=== PATIENT | male | born 1960 | race Two or more races ===

== ENCOUNTER 2024-01-24 16:27 | Inpatient (IN) | payer MEDICAID, SELFPAY ==
[2024-01-24] VITALS (10 sets, daily range): BP systolic 163–179; BP diastolic 85–107; PULSE 94–107; RESP 19–28; TEMP 36.6–36.8; O2SAT 86–100
--- NOTE | 2024-01-24 16:30 | EKG_ITS ---
[facility] Test Date: 2024-01-24 Pat Name: VALERIE BRUNSON Department: Room: - Gender: Male Area [employer]: : [id number] Requested By: ED Temporary Provider Order Number: [id number] Reading MD: ED Temporary Provider Measurements Intervals [place] Rate: 95 P: 11 NC: 117 QRS: 0 QRSD: 86 T: 46 QT: 352 QTc: 444 Interpretive Statements SINUS RHYTHM WITH SHORT NC INTERVAL Compared to ECG 06/29/2022 07:19:48 Short NC interval now present Sinus arrhythmia no longer present Left anterior fascicular block no longer present /[id number]/[id number].pdf
--- NOTE | 2024-01-24 17:02 | XR_ITS ---
Examination: AP chest single view Technique one AP portable semiupright chest single view Exam date and time: January 24, 2024 1847 hrs. Comparison October 04, 2023 Indications: Coughing shortness of breath beginning 3 days ago. Findings: Mild prominence left ventricle Prominent vascular congestion Bilateral perihilar lung opacity, edema and probably pneumonia Mild to moderate bilateral pleural effusions Impression: Moderate heart failure, consider superimposed bilateral pneumonia
--- NOTE | 2024-01-24 17:02 | PD.EDRME ---
Rapid Medical Screening Exam E Arrival date/time: 01/24/24 16:27 63-year-old male with past medical history of 2 diabetes, HLD, HTN presents emergency department complaining of chest pain and shortness of breath that is been ongoing for several days. Chief Complaint: Chest Pain Vital signs: Vital Signs Temperature 97.9 F 01/24/24 16:48 Pulse Rate 98 01/24/24 16:48 Respiratory Rate 24 H 01/24/24 16:48 Blood Pressure 175/85 H 01/24/24 16:48 Pulse Oximetry (%) 86 L 01/24/24 16:48 Oxygen Delivery Method Room Air 01/24/24 16:48 Vital signs reviewed by provider: Yes
--- NOTE | 2024-01-24 17:07 | XR_ITS ---
Examination: Foot, right, 3 views Technique: AP, oblique, lateral views foot, 3 views Date and time of exam: January 24, 2024 1848 hrs. Indications: Redness swelling and pain involving the foot this week. 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
[2024-01-24 17:25] LABS: Lactate (Lactic Acid) 1.5 mMol/L (0.4-2.0)
[2024-01-24] MEDS: ALBUTEROL RT 2.5 MG/0.5 ML NEBU 5 MG INH (17:28)
[2024-01-24] MEDS: IPRATROPIUM RT 0.5 MG/ 2.5 ML NEBU 1 MG INH (17:29)
[2024-01-24 17:37] LABS: Basophils # (Auto) 0.1 Thou/mm3 (0.0-0.2); Basophils % (Auto) 0 % (0-2.5); Eosinophils # (Auto) 0.4 Thou/mm3 (0.0-0.5); Eosinophils % (Auto) 2 % (0-10); Hematocrit 28.6 % (41.0-53.0); Hemoglobin 8.9 g/dL (13.5-16.0); Immature Granulocytes % (Auto) 1 % (0-0); Immature Granulocytes Auto 0.16 Thou/mm3 (0.00-0.00); Lymphocytes # (Auto) 1.8 Thou/mm3 (1.0-4.8); Lymphocytes % (Auto) 12 % (10-50); Mean Corpuscular HGB Conc 31.1 g/dl (31.0-37.0); Mean Corpuscular Hemoglobin 25.5 pg (25.0-35.0); Mean Corpuscular Volume 82 fL (80-100); Monocytes % (Auto) 7 % (0-12); Neutrophils % (Auto) 78 % (37-80); Nucleated Red Blood Cell % 0 /100 WBC (0); Platelet Count 452 Thou/mm3 (140-440); RDW Standard Deviation 42.8 fL (35.1-43.9); Red Blood Count 3.49 Miln/mm3 (4.50-5.90); White Blood Count 15.4 Thou/mm3 (3.8-10.6)
[2024-01-24 17:43] LABS: Partial Thromboplastin Time 29.3 Seconds (22.0-36.0); Prothrombin Time 11.3 Seconds (9.0-12.2)
[2024-01-24 17:49] LABS: B-Type Natriuretic Peptide 671 pg/mL (0-100)
[2024-01-24 17:52] LABS: Alanine Aminotransferase 30 U/L (10-49); Alkaline Phosphatase 226 U/L (46-116); Anion Gap 7 (7-16); Aspartate Amino Transferase 19 U/L (0-34); BUN/Creatinine Ratio 20 Ratio (12-20); Bilirubin,Total 0.4 mg/dL (0.3-1.2); Blood Urea Nitrogen 56 mg/dL (9-23); Calcium 8.6 mg/dL (8.3-10.6); Calcium (Corrected) 8.6 mg/dL (8.5-10.1); Chloride 107 mMol/L (98-107); Creatinine (Component) 2.8 mg/dL (0.6-1.3); Glucose 242 mg/dL (74-106); Magnesium 2.3 mg/dL (1.6-2.6); Osmolality,Calculated 293 (275-295); Potassium 5.1 mMol/L (3.4-5.1); Procalcitonin 0.11 ng/ml (0.0-0.49); Sodium 135 mMol/L (136-145); Troponin I < 0.020 ng/mL (0.0-0.045); eGFR 25 See Note
[2024-01-24 18:18] LABS: Collection Type, Urine Clean Catch; WBC,Urine 0 /hpf (0-5)
[2024-01-24 18:23] LABS: Bilirubin,Urine Negative (Negative); Blood,Urine 1+ (Negative); Clarity,Urine Clear (Clear/Hazy); Color,Urine Yellow (Lt Yel-Yel); Culture Indicated,Urine Not Indicated; Glucose, Urine 3+ (Negative); Hyaline Casts,Urine < 1 /hpf (0-1); Ketones,Urine Negative (Negative); Leukocyte Esterase,Urine Negative (Negative); Nitrite,Urine Negative (Negative); Protein,Urine 3+ (Neg - Trace); RBC,Urine 15 /hpf (0-3); Specific Gravity,Urine 1.019 (1.001-1.035); Squamous Epithelial Cell,Urine 2 /hpf (0-5); Urobilinogen,Urine Negative mg/dL (0.0-1.0)
[2024-01-24 18:37] LABS: Amphetamine/Methamp Scrn,U Negative (Negative); Barbiturate Screen,Urine Negative (Negative); Benzodiazepines Screen,Urine Negative (Negative); Benzoylecgonine Screen, Ur Negative (Negative); Fentanyl Screen,Urine Negative (Negative); Opiate Screen,Urine Positive (Negative); THC Screen,Urine Negative (Negative)
[2024-01-24] MEDS: ALBUTEROL/IPRATROPIUM (Duoneb) RT SOL 3 ML NEBU INH (18:45)
--- NOTE | 2024-01-24 18:48 | EDNOTE_ITS ---
ED General RME/HPI General Chief complaint: Chest Pain Stated complaint: CHEST PAIN, SOB Time Seen by Provider: 01/24/24 18:32 Arrival date/time: 01/24/24 16:27 CC: Shortness of breath difficulty breathing HPi ongoing for the past 2 days, patient states he currently is freezing as well as having short of breath. On a simple mask patient is saturating at 98%. Patient points to center chest source of his chest pain. RME / HPI RME / HPI narrative: 01/24/24 16:27 63-year-old male with past medical history of 2 diabetes, HLD, HTN presents emergency department complaining of chest pain and shortness of breath that is been ongoing for several days. Related Data Home Medications ?Medication ?Instructions ?Recorded ?Confirmed clonidine HCl 0.1 mg tablet 0.1 mg PO BID 01/27/24 01/27/24 furosemide 20 mg tablet (Lasix) 40 mg PO TID 01/27/24 01/27/24 insulin glargine 100 unit/mL (3 15 unit subcut HS 01/27/24 01/27/24 mL) subcutaneous pen (Lantus Solostar U-100 Insulin) Previous Rx's ?Medication ?Instructions ?Recorded amlodipine 10 mg tablet 10 mg PO QDAY #30 tabs 10/09/23 hydrocodone 10 mg-acetaminophen 1 tab PO Q8H PRN pain #15 tabs 10/09/23 300 mg tablet Allergies Allergy/AdvReac Type Severity Reaction Status Date / Time No Known Allergies Allergy Verified 06/19/22 16:16 Review of Systems Review of Systems Narrative Review of Systems: GEN: No fever, no chills, no weight loss EYES: No discharge, no visual changes, no pain HEENT: No ear pain, no congestion, no sore throat PULM: + shortness of breath, no cough, no congestion CV: + chest pain, no dyspnea on exertion, no palpitations GI: No nausea, no vomiting, no diarrhea, no pain, no constipation : No frequency, no urgency, no dysuria MUSC/SKEL: No joint pain, no back pain SKIN: No rash PSYCH: No hallucinations, no depression HEME/LYMPH: No easy bleeding or bruising tendencies NEURO: No weakness, no headache Past Medical History Past Medical History NEUROLOGIC: Negative Seizures CARDIAC: Positive Edema, Cellulitis and Hypertension; Negative Cardiac Disorders or Congestive Heart Failure RESPIRATORY: Negative Chronic Obstructive Pulmonary Disease (COPD) or Asthma GENITOURINARY: Negative Renal Disease ENDOCRINE: Positive Diabetes Mellitus Type 2; Negative Diabetes Mellitus Type 1 HEMATOLOGIC: Negative Sickle Cell Disease OTHER HISTORY: Positive Hospitalization; Negative Falls, Blood Transfusions, Blood Transfusion Reaction or Anesthesia Reactions Social History SMOKING STATUS: Never smoker SUBSTANCE USE: does not use ED Exam Narrative Physical exam: [General: Moderate discomfort but not in any acute distress Head normocephalic HEENT: Within acceptable limits Neck is supple nontender Chest equal chest rise nontender to palpation Respiratory: Right-sided expiratory and inspiratory wheezing with occasional crackles left side diminished. CV: Rate rhythm is regular no murmurs rubs or clicks Abdomen is soft nontender no masses positive bowel sounds all 4 quadrants GI: Rectal: Moderate tone, vault is empty pasty santoyo stool guaiac negative no hemorrhoids no fissures. Back: No CVA tenderness no spinous process tenderness from cervical spine thoracic and lumbar spine Skin: Intact no petechiae rash induration ulceration or crepitus Extremities: Moving all extremity against resistance cap refill less than 2 seconds neurosensory intact right foot covered with a dressing. No surrounding erythema or edema. Neuro: Awake alert oriented x3 Glascow coma 15 no focal deficits] Course Quality Measures none Orders Category Date Time Status Bedside COVID-19 Antigen Test NOW Care 01/24/24 17:02 Active Bedside Influenza A&B Antigen Test NOW Care 01/24/24 17:02 Completed EKG (ED ONLY) *Do not use* NOW Care 01/24/24 16:30 Completed Saline [Insert IV] NOW Care 01/24/24 18:41 Active EKG (ED Only) Stat Exams 01/24/24 16:30 Draft XR chest 1V portable Stat Exams 01/24/24 17:02 Completed XR foot comp RT min 3V Stat Exams 01/24/24 17:07 Completed B-Type Natriuretic Peptide Stat Lab 01/24/24 17:15 Completed Blood Culture (Lab) Stat Lab 01/24/24 17:15 Results CBC Stat Lab 01/24/24 17:15 Completed Comprehensive Metabolic Panel Stat Lab 01/24/24 17:15 Completed Drug Screen,Urine Stat Lab 01/24/24 18:05 Completed Lactate (Lactic Acid) Stat Lab 01/24/24 17:15 Completed Magnesium Stat Lab 01/24/24 17:15 Completed Occult Blood, Stool (LAB) Stat Lab 01/24/24 19:21 Completed Partial Thromboplastin Time Stat Lab 01/24/24 17:15 Completed Procalcitonin Stat Lab 01/24/24 17:15 Completed Prothrombin Time with INR Stat Lab 01/24/24 17:15 Completed Troponin I Stat Lab 01/24/24 17:15 Completed Type and Screen Stat Lab 01/24/24 19:00 Completed Urinalysis, C/S if Indicated Stat Lab 01/24/24 18:05 Completed ALBUTEROL RT 0.5ml [Proventil Rt 0.5ml] Med 01/24/24 17:05 Discontinued 5 mg INH X1 ONE Albuterol/Ipratr Rt Silvina [Duoneb Rt Silvina] Med 01/24/24 18:38 Discontinued 3 ml INH X1 ONE Furosemide Inj [Lasix Inj] Med 01/24/24 19:19 Discontinued 40 mg IVP X1 ONE Ipratropium [place] Rt Silvina [Atrovent Rt Silvina] Med 01/24/24 17:05 Discontinued 1 mg INH X1 ONE Sodium Chloride Rt Silvina 0.9% [NS Rt Silvina 0.9%] Med 01/24/24 17:05 Discontinued 3 ml INH PRN PRN cefTRIAXone/D5w 1gm IV premix [Rocephin/D5w 1gm IV Med 01/24/24 18:57 Discontinued premix] 50 ml IV X1 Vital Signs Vital signs: Vital Signs Temperature 97.9 F 01/24/24 16:48 Pulse Rate 98 01/24/24 16:48 Respiratory Rate 24 H 01/24/24 16:48 Blood Pressure 175/85 H 01/24/24 16:48 Pulse Oximetry (%) 86 L 01/24/24 16:48 Oxygen Delivery Method Room Air 01/24/24 16:48 [facility] Patient data External records reviewed:: [facility] previous records Clinical information provided by:: patient Social determinants that could affect healthcare access:: none Patient has the following chronic illnesses:: Diabetes hypertension hyperlipidemia osteomyelitis of the right foot Admission to this hospital earlier in the year 2023 for osteomyelitis of the right foot. How is presenting disease/condition affected by chronic disease/condition?: u neffected by Evaluation data The following diagnostics were reviewed and interpreted by me:: lab results, radiology exam(s) and EKG tracing(s) Lab and/or radiology exams considered but not ordered:: CBC shows a leukocytosis of 15.4 and H&H of 8.9 and 28.6 respectively is a decrease of 1.5 g of heme hemoglobin in 1/2 months platelets elevated at 452. Coags within acceptable limits CMP shows sodium 135 potassium of 5.1 chloride of 107 CO2 of 21.0 BUN of 56 creatinine of 2.8 blood glucose level of 242. Troponin is negative BNP is negative EKG as interpreted by me at 1722 shows ventricular rate of 95 UT interval 117 QRS of 86 QTc of 405 this is a normal sinus rhythm. COVID and influenza are negative. Interpretation Summary: Leukocytosis with anemia. More importantly the patient has significant pneumonia with bilateral pleural effusion. Patient's case discussed with Dr. Cruz who agrees to accept the patient for admission for pneumonia hypoxemia shortness of breath or chest pain. Medications Medications considered but not ordered:: None Medication administrations:: Medication Administration History Acetaminophen (Acetaminophen 325 Mg Tablet) 650 mg PO Q6H PRN PRN Reason: Fever >101.5 Stop: 02/23/24 19:39 Amlodipine Besylate (Amlodipine Besylate 5 Mg Tablet) 10 mg PO QDAY ANAMARIA Stop: 02/24/24 08:59 Last Admin: 01/27/24 08:31 Dose: 10 mg Documented By: Admin: 01/26/24 07:50 Dose: 10 mg Documented By: Admin: 01/25/24 07:55 Dose: 10 mg Documented By: AM Atorvastatin Calcium (Atorvastatin Calcium 20 Mg Tablet) 40 mg PO HS ANAMARIA Stop: 02/26/24 20:59 Last Admin: 01/27/24 21:21 Dose: 40 mg Documented By: IQRA Bumetanide (Bumetanide Inj 0.25 Mg/Ml Vial 4 Ml) 2 mg IVP BID ANAMARIA Stop: 02/25/24 08:59 Last Admin: 01/27/24 21:21 Dose: 2 mg Documented By: Admin: 01/27/24 08:30 Dose: 2 mg Documented By: Admin: 01/26/24 21:06 Dose: 2 mg Documented By: Admin: 01/26/24 07:55 Dose: 2 mg Documented By: AT Carvedilol (Carvedilol 3.125 Mg Tablet) 6.25 mg PO BIDWM ANAMARIA Stop: 02/25/24 07:59 Last Admin: 01/27/24 16:55 Dose: 6.25 mg Documented By: Admin: 01/27/24 08:31 Dose: 6.25 mg Documented By: Admin: 01/26/24 16:30 Dose: 6.25 mg Documented By: Admin: 01/26/24 07:49 Dose: 6.25 mg Documented By: AT Dextrose (Dextrose 50%-Water Inj 50 Ml Syringe) 25 ml IV Q15MIN PRN PRN Reason: BG 50-70 responsive npo pt Stop: 02/23/24 19:41 Dextrose (Dextrose 50%-Water Inj 50 Ml Syringe) 50 ml IV Q15MIN PRN PRN Reason: BG <50 OR BG <70 & pt unresponsive Stop: 02/23/24 19:41 Glucagon (Glucagon Inj 1 Mg Vial) 1 mg IM Q15MIN PRN PRN Reason: BG <70, and no IV access Heparin Sodium (Porcine) (Heparin Sod Inj 5000 Unit/Ml Vial) 5,000 unit SC Q8HR ANAMARIA Stop: 02/07/24 21:59 Last Admin: 01/27/24 21:22 Dose: 5,000 unit Documented By: IQRA Co-signed By: BR Admin: 01/27/24 14:39 Dose: 5,000 unit Documented By: EMANUEL Co-signed By: HR Admin: 01/27/24 05:31 Dose: 5,000 unit Documented By: IQRA Co-signed By: ANALI Admin: 01/26/24 21:05 Dose: 5,000 unit Documented By: CMC Co-signed By: VR Admin: 01/26/24 13:51 Dose: Not Given Documented By: AT Non-Admin Reason: per md hold dose for procedure Admin: 01/26/24 05:17 Dose: 5,000 unit Documented By: CLT Co-signed By: ALINA Admin: 01/25/24 21:53 Dose: 5,000 unit Documented By: CMN Co-signed By: ALINA Admin: 01/25/24 15:18 Dose: 5,000 unit Documented By: AM Co-signed By: JR Admin: 01/25/24 06:00 Dose: 5,000 unit Documented By: NIKKI Co-signed By: JUAN LUIS Admin: 01/24/24 21:24 Dose: 5,000 unit Documented By: NIKKI Co-signed By: JUAN LUIS Cefepime HCl 1 gm/ Sodium (Chloride) 50 mls @ 100 mls/hr IV QDAY ANAMARIA Stop: 02/01/24 11:14 Last Admin: 01/27/24 08:28 Dose: 100 mls/hr Documented By: Infusion: 01/26/24 09:14 Dose: Infused Documented By: Admin: 01/26/24 07:53 Dose: 100 mls/hr Documented By: Infusion: 01/25/24 14:10 Dose: Infused Documented By: Admin: 01/25/24 13:32 Dose: 100 mls/hr Documented By: AM Insulin Glargine (Insulin Glargine (Lantus) 5 Unit/0.05 Ml (Per 5 Units)) 10 unit SC QDAY [facility] Stop: 02/24/24 08:59 Last Admin: 01/27/24 08:42 Dose: 10 unit Documented By: EMANUEL Co-signed By: LEONARD Admin: 01/26/24 07:52 Dose: 10 unit Documented By: AT Co-signed By: prabhu Admin: 01/25/24 13:26 Dose: Not Given Documented By: AM Non-Admin Reason: Medication Not Available Insulin Human Regular (Insulin Hum Regular 1 Unit/0.01 Ml (Per Unit)) 0 unit SC ACHS [facility]; Protocol Stop: 02/23/24 20:59 Last Admin: 01/27/24 21:21 Dose: 1 unit Documented By: IQRA Co-signed By: ANDRZEJ Admin: 01/27/24 16:54 Dose: Not Given Documented By: EMANUEL Non-Admin Reason: Per Protocol Admin: 01/27/24 11:48 Dose: 1 unit Documented By: EMANUEL Co-signed By: LEONARD Admin: 01/27/24 07:39 Dose: Not Given Documented By: EMANUEL Non-Admin Reason: Per Protocol Admin: 01/26/24 21:05 Dose: 1 unit Documented By: IQRA Co-signed By: ANALI Admin: 01/26/24 16:30 Dose: Not Given Documented By: AT Non-Admin Reason: Per Protocol Admin: 01/26/24 11:14 Dose: 1 unit Documented By: AT Co-signed By: Admin: 01/26/24 07:51 Dose: 1 unit Documented By: AT Co-signed By: prabhu Admin: 01/25/24 21:53 Dose: 1 unit Documented By: LOTTIE Co-signed By: ALINA Admin: 01/25/24 18:30 Dose: 1 unit Documented By: ALAN Co-signed By: FRANK Admin: 01/25/24 13:37 Dose: 1 unit Documented By: AGNES Co-signed By: JEANETTE Admin: 01/25/24 07:54 Dose: 2 unit Documented By: AM Co-signed By: DAVY Admin: 01/24/24 21:24 Dose: 3 unit Documented By: NIKKI Co-signed By: JUAN LUIS Ipratropium [place] (Ipratropium Rt 0.5 Mg/ 2.5 Ml Nebu) 0.5 mg INH Q6HRRT PRN PRN Reason: SHORTNESS OF BREATH OR WHEEZE Stop: 02/23/24 21:00 Last Admin: 01/26/24 00:42 Dose: 0.5 mg Documented By: SC Admin: 01/25/24 19:09 Dose: 0.5 mg Documented By: SC Levalbuterol HCl (Levalbuterol Rt 1.25 Mg/0.5 Ml Nebu) 1.25 mg INH Q6HRRT [facility] Stop: 02/24/24 00:59 Last Admin: 01/28/24 00:10 Dose: 1.25 mg Documented By: Admin: 01/27/24 18:57 Dose: 1.25 mg Documented By: Admin: 01/27/24 12:12 Dose: 1.25 mg Documented By: Admin: 01/27/24 06:51 Dose: 1.25 mg Documented By: Admin: 01/27/24 00:13 Dose: 1.25 mg Documented By: Admin: 01/26/24 19:04 Dose: 1.25 mg Documented By: Admin: 01/26/24 13:35 Dose: 1.25 mg Documented By: [facility] Admin: 01/26/24 06:13 Dose: 1.25 mg Documented By: Admin: 01/26/24 00:42 Dose: 1.25 mg Documented By: SC Admin: 01/25/24 18:54 Dose: 1.25 mg Documented By: SC Admin: 01/25/24 14:41 Dose: Not Given Documented By: [facility] Non-Admin Reason: Other, see note Admin: 01/25/24 06:17 Dose: 1.25 mg Documented By: (2) Admin: 01/25/24 00:13 Dose: 1.25 mg Documented By: NIKKI(2) Ondansetron HCl (Ondansetron Inj 2 Mg/Ml Inj 2 Ml) 4 mg IV Q6HR PRN; Protocol PRN Reason: NAUSEA OR VOMITING Stop: 02/24/24 05:01 Last Admin: 01/25/24 05:11 Dose: 4 mg Documented By: NIKKI Sodium Chloride (Sodium Chloride Rt Silvina 0.9% 3 Ml Nebu) 3 ml INH Q6HRRT PRN PRN Reason: SOLN Stop: 02/23/24 21:00 Last Admin: 01/28/24 00:10 Dose: 3 ml Documented By: Admin: 01/27/24 18:58 Dose: 3 ml Documented By: Admin: 01/27/24 12:12 Dose: 3 ml Documented By: Admin: 01/27/24 06:51 Dose: 3 ml Documented By: Admin: 01/27/24 00:13 Dose: 3 ml Documented By: Admin: 01/26/24 19:04 Dose: 3 ml Documented By: Admin: 01/26/24 13:35 Dose: 3 ml Documented By: [facility] Admin: 01/26/24 06:13 Dose: 3 ml Documented By: [facility] Admin: 01/26/24 00:42 Dose: 3 ml Documented By: SC Admin: 01/25/24 18:54 Dose: 3 ml Documented By: SC Discontinued Medications Albuterol (Albuterol Rt 2.5 Mg/0.5 Ml Nebu) 5 mg INH X1 ONE Stop: 01/24/24 17:06 Last Admin: 01/24/24 17:28 Dose: 5 mg Documented By: Albuterol/Ipratropium (Albuterol/Ipratropium (Duoneb) Rt Silvina 3 Ml Nebu) 3 ml INH X1 ONE Stop: 01/24/24 18:39 Last Admin: 01/24/24 18:45 Dose: 3 ml Documented By: NIKKI(2) Azithromycin (Azithromycin 250 Mg Tablet) 500 mg PO QDAY [facility]; Protocol Stop: 02/01/24 08:59 Last Admin: 01/25/24 07:54 Dose: 500 mg Documented By: AM Bumetanide (Bumetanide Inj 0.25 Mg/Ml Vial 4 Ml) 2 mg IVP X1 ONE Stop: 01/25/24 19:51 Last Admin: 01/25/24 20:05 Dose: 2 mg Documented By: ALINA Furosemide (Furosemide Inj 10 Mg/Ml 4ml Vial) 40 mg IVP X1 ONE Stop: 01/24/24 19:20 Last Admin: 01/24/24 19:43 Dose: 40 mg Documented By: NIKKI Furosemide (Furosemide Inj 10 Mg/Ml 4ml Vial) 40 mg IVP BIDD ANAMARIA Stop: 02/24/24 05:59 Last Admin: 01/25/24 18:31 Dose: 40 mg Documented By: Admin: 01/25/24 06:00 Dose: 40 mg Documented By: NIKKI Furosemide (Furosemide Inj 10 Mg/Ml 4ml Vial) 40 mg IVP X1 ONE Stop: 01/25/24 14:14 Last Admin: 01/25/24 15:19 Dose: 40 mg Documented By: AM Ceftriaxone Sodium/Dextrose (Rocephin/D5w 1gm Iv Premix) 50 mls @ 100 mls/hr IV X1 ONE Stop: 01/24/24 19:26 Last Infusion: 01/24/24 19:48 Dose: Infused Documented By: Admin: 01/24/24 19:19 Dose: 100 mls/hr Documented By: NIKKI Ceftriaxone Sodium/Dextrose (Rocephin/D5w 1gm Iv Premix) 50 mls @ 100 mls/hr IV 2100 [facility] Stop: 02/01/24 20:59 Azithromycin 500 mg/ Sodium (Chloride) 250 mls @ 250 mls/hr IV QDAY ANAMAR[place] Stop: 01/31/24 19:44 Last Admin: 01/25/24 06:49 Dose: Not Given Documented By: NIKKI Non-Admin Reason: Discontinued Vancomycin/Sodium Chloride (Vancomycin/Ns 1 Gm Ivpb) 200 mls @ 120 mls/hr IV X1 ONE Stop: 01/25/24 13:09 Last Admin: 01/25/24 14:21 Dose: 120 mls/hr Documented By: AM Vancomycin/Sodium Chloride (Vancomycin/Ns 1 Gm Ivpb) 200 mls @ 120 mls/hr IV QDAY@1000 ANAMARIA Stop: 02/02/24 09:59 Last Admin: 01/27/24 10:15 Dose: 120 mls/hr Documented By: Infusion: 01/26/24 10:50 Dose: Infused Documented By: Admin: 01/26/24 09:09 Dose: 120 mls/hr Documented By: AT Ipratropium [place] (Ipratropium Rt 0.5 Mg/ 2.5 Ml Nebu) 1 mg INH X1 ONE Stop: 01/24/24 17:06 Last Admin: 01/24/24 17:29 Dose: 1 mg Documented By: AH Labetalol HCl (Labetalol Inj 5 Mg/Ml Vial 20 Ml) 10 mg IVP X1 ONE Stop: 01/26/24 02:12 Last Admin: 01/26/24 02:22 Dose: 10 mg Documented By: CLT Permethrin (Permethrin Cr 5% 60 Gm Tube) 0 gm TOP X1 ONE Stop: 01/25/24 17:56 Last Admin: 01/25/24 20:09 Dose: 1 applicatio Documented By: ZP Comments: Given late 2/T unavailability for day shift RN/Order from dayshift. Permethrin (Permethrin Creme Rinse 60 Ml Btl) 0 ml TOP X1 ONE Stop: 01/26/24 13:50 Last Admin: 01/26/24 15:44 Dose: 1 applicatio Documented By: AT Pharmacy Consult (Vancomycin Pharmacy To Dose 1 Each Each) 1 each IV QDAY PRN PRN Reason: CONSULT Stop: 02/24/24 11:14 Sodium Chloride (Sodium Chloride Rt Silv[place] 0.9% 3 Ml Nebu) 3 ml INH PRN PRN PRN Reason: SOLN Stop: 02/23/24 17:04 Last Admin: 01/25/24 06:17 Dose: 3 ml Documented By: MR(2) Admin: 01/25/24 00:14 Dose: 3 ml Documented By: GB(2) Sodium Chloride (Sodium Chloride Rt 10% 15 Ml Nebu) 5 ml INH X1 ONE Stop: 01/26/24 07:57 Last Admin: 01/26/24 13:35 Dose: Not Given Documented By: [facility] Non-Admin Reason: Other, see note Sodium Polystyrene Sulfonate (Sod Polystyrene Sulfon Susp 15 Gm/60 Ml Btl) 30 gm PO X1 ONE Stop: 01/26/24 07:02 Last Admin: 01/26/24 07:16 Dose: 30 gm Documented By: AT None Consultations Consultation(s) initiated? (list below): No Diagnosis Differential Diagnosis ED Complaint MDM: ACS OK pneumonia pleural effusion Most likely diagnosis given after review of the tests above:: Chest pain pneumonia shortness of breath pleural effusion Admission Indicated Admission indicated?: indicated Explain why admission is indicated or not indicated:: Quires further medical management Admission Request Was there a request for admission?: No Disposition Plan Disposition Plan: Admit Medical Decision Making Differential Diagnosis Differential Diagnosis: ACS OK pneumonia pleural effusion Lab Data 01/27/24 07:47 01/27/24 07:47 Labs: Lab Results 01/24/24 01/24/24 01/24/24 Range/Units 17:15 18:05 19:00 WBC 15.4 H (3.8-10.6) Thou/mm3 RBC 3.49 L (4.50-5.90) Miln/mm3 Hgb 8.9 L (13.5-16.0) g/dL Hct 28.6 L (41.0-53.0) % MCV 82 (80-100) fL MCH 25.5 (25.0-35.0) pg MCHC 31.1 (31.0-37.0) g/dl RDW Std Deviation 42.8 (35.1-43.9) fL Plt Count 452 H (140-440) Thou/mm3 Neut % (Auto) 78 (37-80) % Lymph % (Auto) 12 (10-50) % [place] % (Auto) 7 (0-12) % Eos % (Auto) 2 (0-10) % Baso % (Auto) 0 (0-2.5) % Neut # (Auto) 12.0 H (1.8-7.7) Thou/mm3 Lymph # (Auto) 1.8 (1.0-4.8) Thou/mm3 Dawson # (Auto) 1.0 H (0.0-0.8) Thou/mm3 Eos # (Auto) 0.4 (0.0-0.5) Thou/mm3 Baso # (Auto) 0.1 (0.0-0.2) Thou/mm3 Immature Gran # (Auto) 0.16 H (0.00-0.00) Thou/mm3 Absolute Nucleated RBC 0.00 (0.00-0.00) Thou/mm3 Immature Gran % 1 H (0-0) % Nucleated RBC % 0 (0) /100 WBC PT 11.3 (9.0-12.2) Seconds INR 1.0 (0.9-1.3) APTT 29.3 (22.0-36.0) Seconds Sodium 135 L (136-145) mMol/L Potassium 5.1 (3.4-5.1) mMol/L Chloride 107 (98-107) mMol/L Carbon Dioxide 21.0 (20.0-31.0) mMol/L Anion Gap 7 (7-16) BUN 56 H (9-23) mg/dL Creatinine 2.8 H (0.6-1.3) mg/dL Estim Creat Clear Calc Not Performed. eGFR 25 L (60 - ) See Note BUN/Creatinine Ratio 20 (12-20) Ratio Glucose 242 H (74-106) mg/dL Calculated Osmolality 293 (275-295) Lactic Acid 1.5 (0.4-2.0) mMol/L Calcium 8.6 (8.3-10.6) mg/dL Corrected Calcium 8.6 (8.5-10.1) mg/dL Magnesium 2.3 (1.6-2.6) mg/dL Total Bilirubin 0.4 (0.3-1.2) mg/dL AST 19 (0-34) U/L ALT 30 (10-49) U/L Alkaline Phosphatase 226 H (46-116) U/L Troponin I < 0.020 (0.0-0.045) ng/mL B-Natriuretic Peptide 671 H* (0-100) pg/mL Total Protein 8.0 (5.7-8.2) gm/dL Albumin 4.0 (3.4-4.8) gm/dL Globulin 4.0 H (2.3-3.5) gm/dL Albumin/Globulin Ratio 1.0 L (1.2-2.2) Procalcitonin 0.11 (0.0-0.49) ng/ml Ur Collection Type Clean Catch Urine Color Yellow (Lt Yel-Yel) Urine Clarity Clear (Clear/Hazy) Urine pH 6.0 (5.0-7.0) Ur Specific [place] 1.019 (1.001-1.035) Urine Protein 3+ A (Neg - Trace) Urine Glucose (UA) 3+ A (Negative) Urine Ketones Negative (Negative) Urine Blood 1+ A (Negative) Urine Nitrite Negative (Negative) Urine Bilirubin Negative (Negative) Urine Urobilinogen (Auto) Negative (0.0-1.0) mg/dL Ur Leukocyte Esterase Negative (Negative) Urine RBC 15 H (0-3) /hpf Urine WBC 0 (0-5) /hpf Ur Squamous Epith Cells 2 (0-5) /hpf Urine Bacteria None (None) Hyaline Casts < 1 (0-1) /hpf Ur Culture Indicated? Not Indicated Stool Occult Blood (Negative) Urine Opiates Screen Positive A (Negative) Urine Fentanyl Screen Negative (Negative) Ur Barbiturates Screen Negative (Negative) U Amphetamin/Meth Scrn Negative (Negative) U Benzodiazepines Scrn Negative (Negative) U Cocaine Metab Screen Negative (Negative) U Marijuana (THC) Screen Negative (Negative) Blood Type O Positive Antibody Screen NEGATIVE Blood Bank Wristband ID Yes 01/24/24 Range/Units 19:21 WBC (3.8-10.6) Thou/mm3 RBC (4.50-5.90) Miln/mm3 Hgb (13.5-16.0) g/dL Hct (41.0-53.0) % MCV (80-100) fL MCH (25.0-35.0) pg MCHC (31.0-37.0) g/dl RDW Std Deviation (35.1-43.9) fL Plt Count (140-440) Thou/mm3 Neut % (Auto) (37-80) % Lymph % (Auto) (10-50) % Dawson % (Auto) (0-12) % Eos % (Auto) (0-10) % Baso % (Auto) (0-2.5) % Neut # (Auto) (1.8-7.7) Thou/mm3 Lymph # (Auto) (1.0-4.8) Thou/mm3 Dawson # (Auto) (0.0-0.8) Thou/mm3 Eos # (Auto) (0.0-0.5) Thou/mm3 Baso # (Auto) (0.0-0.2) Thou/mm3 Immature Gran # (Auto) (0.00-0.00) Thou/mm3 Absolute Nucleated RBC (0.00-0.00) Thou/mm3 Immature Gran % (0-0) % Nucleated RBC % (0) /100 WBC PT (9.0-12.2) Seconds INR (0.9-1.3) APTT (22.0-36.0) Seconds Sodium (136-145) mMol/L Potassium (3.4-5.1) mMol/L Chloride (98-107) mMol/L Carbon Dioxide (20.0-31.0) mMol/L Anion Gap (7-16) BUN (9-23) mg/dL Creatinine (0.6-1.3) mg/dL Estim Creat Clear Calc eGFR (60 - ) See Note BUN/Creatinine Ratio (12-20) Ratio Glucose (74-106) mg/dL Calculated Osmolality (275-295) Lactic Acid (0.4-2.0) mMol/L Calcium (8.3-10.6) mg/dL Corrected Calcium (8.5-10.1) mg/dL Magnesium (1.6-2.6) mg/dL Total Bilirubin (0.3-1.2) mg/dL AST (0-34) U/L ALT (10-49) U/L Alkaline Phosphatase (46-116) U/L Troponin I (0.0-0.045) ng/mL B-Natriuretic Peptide (0-100) pg/mL Total Protein (5.7-8.2) gm/dL Albumin (3.4-4.8) gm/dL Globulin (2.3-3.5) gm/dL Albumin/Globulin Ratio (1.2-2.2) Procalcitonin (0.0-0.49) ng/ml Ur Collection Type Urine Color (Lt Yel-Yel) Urine Clarity (Clear/Hazy) Urine pH (5.0-7.0) Ur Specific [place] (1.001-1.035) Urine Protein (Neg - Trace) Urine Glucose (UA) (Negative) Urine Ketones (Negative) Urine Blood (Negative) Urine Nitrite (Negative) Urine Bilirubin (Negative) Urine Urobilinogen (Auto) (0.0-1.0) mg/dL Ur Leukocyte Esterase (Negative) Urine RBC (0-3) /hpf Urine WBC (0-5) /hpf Ur Squamous Epith Cells (0-5) /hpf Urine Bacteria (None) Hyaline Casts (0-1) /hpf Ur Culture Indicated? Stool Occult Blood Negative (Negative) Urine Opiates Screen (Negative) Urine Fentanyl Screen (Negative) Ur Barbiturates Screen (Negative) U Amphetamin/Meth Scrn (Negative) U Benzodiazepines Scrn (Negative) U Cocaine Metab Screen (Negative) U Marijuana (THC) Screen (Negative) Blood Type Antibody Screen Blood Bank Wristband ID Discharge Plan Plan Patient Disposition: Admit Acute Care w/in Hospital Problem List Clinical Impression: Pneumonia, Pleural effusion MD Attestation MD Attestation The patient was seen by the midlevel practitioner. I, the co-signing physician, was present during the entire ER visit. While I did not physically examine the patient, I was available for consultation as needed.
[2024-01-24] MEDS: cefTRIAXone/D5w 1gm IV premix 50 ML IV (19:19)
[2024-01-24] MEDS: FUROSEMIDE INJ 10 MG/ML 4ML VIAL 40 MG IVP (19:43)
[2024-01-24 20:01] LABS: OBS Card Expiration Date 9/1/2026; OBS Card Lot # 23001; OBS Developer Expiration Date 9/1/2026; OBS Developer Lot # 23003; OBS Performed By bedag; OBS QC OK? Yes; Occult Blood, Stool Negative (Negative)
--- NOTE | 2024-01-24 20:19 | PD.RESHP ---
Documentation for date of: 01/24/24 HPI History of Present Illness History of present illness: Colton Sandoval is a 63-year-old male with a past medical history of type 2 diabetes mellitus, hyperlipidemia, and hypertension who presents with shortness of breath and chest discomfort. Symptoms started approximately a week ago but acutely worsened overnight to the point where he would get short of breath after just a few steps, prompting him to come to the ED. Endorses orthopnea, PND, and bilateral lower extremity edema. Regarding his chest pain, describes it as substernal, pressure-like, worse with activity, and does not subside with rest. 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 Previously admitted and treated for osteomyelitis of right hallux on 09/2023 and underwent transmetatarsal amputation discharged with 7-day course of doxycycline that patient completed. ED course: BP 175/85, HR 107, RR 24, O2 86% on room air -> 98% on 8 L oxy mask, afebrile WBC 15, Hgb 8.9, K 5.1, Cr 2.8 (baseline 2.0), glucose 242, BNP 671, troponin negative, Pro-Yusef WNL UA: 15 RBC, U tox opiate positive CXR showed vascular congestion, bilateral pleural effusions, and possible XR right foot showed osteo of amputated first metatarsal and second MTP joint In ED given DuoNebs x 2, ceftriaxone x 1, Lasix 40 mg IV x 1 PMHx: Type 2 diabetes mellitus, hyperlipidemia, hypertension, osteomyelitis Medications: Patient does not remember or have a list SHx: Denies smoking, alcohol, or illicit drug use PSHx: Right hallux amputation Review of Systems Review of Systems Systems Reviewed: All systems reviewed, normal except as documented Exam Vital Signs Temp Pulse Resp BP Pulse Ox O2 Del Method O2 Flow Rate 97.9 F 107 H 22 H 176/103 H 98 Oxy Mask 10 01/24/24 18:28 01/24/24 19:43 01/24/24 19:24 01/24/24 19:43 01/24/24 19:24 01/24/24 19:24 01/24/24 19:24 Narrative Exam General: AOx3, in moderate distress, speaks in full sentences with some SOB. HEENT: NC/AT, mucous membranes moist, bilateral sclera anicteric. Cardiovascular: Tachycardic, regular rhythm, S1/S2 present, no murmurs appreciated. Pulmonary: Wheezing appreciate throughout lung julio bilaterally. Abdominal: Soft, non-tender, non-distended, no rebound/guarding, normal bowel sounds present. Musculoskeletal: Bilateral lower extremity pitting edema to knees; right hallux TMA. Skin: Papules on BLE, excoriations on back. Neuro: CN II-XII intact, no focal deficits. Results: Labs 01/24/24 17:15 01/24/24 17:15 Labs: Short CBC 01/24/24 Range/Units 17:15 WBC 15.4 H (3.8-10.6) Thou/mm3 Hgb 8.9 L (13.5-16.0) g/dL Hct 28.6 L (41.0-53.0) % Plt Count 452 H (140-440) Thou/mm3 BMP 01/24/24 17:15 Sodium 135 L Potassium 5.1 Chloride 107 Carbon Dioxide 21.0 BUN 56 H Creatinine 2.8 H Glucose 242 H Calcium 8.6 Cardiac Enzymes 01/24/24 Range/Units 17:15 Troponin I < 0.020 (0.0-0.045) ng/mL Liver Function 01/24/24 Range/Units 17:15 Total Bilirubin 0.4 (0.3-1.2) mg/dL AST 19 (0-34) U/L ALT 30 (10-49) U/L Alkaline Phosphatase 226 H (46-116) U/L Albumin 4.0 (3.4-4.8) gm/dL Urine 01/24/24 Range/Units 18:05 Urine Color Yellow (Lt Yel-Yel) Urine Clarity Clear (Clear/Hazy) Urine pH 6.0 (5.0-7.0) Ur Specific [place] 1.019 (1.001-1.035) Urine Protein 3+ A (Neg - Trace) Urine Glucose (UA) 3+ A (Negative) Quality Measures Quality Measures VTE prophylaxis and sepsis Current suspected stage: sepsis Possible source: pulmonary and bone/joint Blood cultures ordered: yes Antibiotic ordered: Yes Medications Home Medications and Allergies Allergies Allergy/AdvReac Type Severity Reaction Status Date / Time No Known Allergies Allergy Verified 06/19/22 16:16 Visit Medications Acetaminophen (Acetaminophen 325 Mg Tablet) 650 mg PO Q6H PRN PRN Reason: Fever >101.5 Stop: 02/23/24 19:39 Amlodipine Besylate (Amlodipine Besylate 5 Mg Tablet) 10 mg PO QDAY ANAMARIA Stop: 02/24/24 08:59 Dextrose (Dextrose 50%-Water Inj 50 Ml Syringe) 25 ml IV Q15MIN PRN PRN Reason: BG 50-70 responsive npo pt Stop: 02/23/24 19:41 Dextrose (Dextrose 50%-Water Inj 50 Ml Syringe) 50 ml IV Q15MIN PRN PRN Reason: BG <50 OR BG <70 & pt unresponsive Stop: 02/23/24 19:41 Furosemide (Furosemide Inj 10 Mg/Ml 4ml Vial) 40 mg IVP BIDD ANAMARIA Stop: 02/24/24 05:59 Glucagon (Glucagon Inj 1 Mg Vial) 1 mg IM Q15MIN PRN PRN Reason: BG <70, and no IV access Heparin Sodium (Porcine) (Heparin Sod Inj 5000 Unit/Ml Vial) 5,000 unit SC Q8HR ANAMARIA Stop: 02/07/24 21:59 Ceftriaxone Sodium/Dextrose (Rocephin/D5w 1gm Iv Premix) 50 mls @ 100 mls/hr IV QDAY ANAMARIA Stop: 02/01/24 08:59 Azithromycin 500 mg/ Sodium (Chloride) 250 mls @ 250 mls/hr IV QDAY ANAMARIA Stop: 01/31/24 19:44 Insulin Glargine (Insulin Glargine (Lantus) 5 Unit/0.05 Ml (Per 5 Units)) 10 unit SC QDAY ANAMARIA Stop: 02/24/24 08:59 Insulin Human Regular (Insulin Hum Regular 1 Unit/0.01 Ml (Per Unit)) 0 unit SC ACHS [facility]; Protocol Stop: 02/23/24 20:59 Sodium Chloride (Sodium Chloride Rt Silvina 0.9% 3 Ml Nebu) 3 ml INH PRN PRN PRN Reason: SOLN Stop: 02/23/24 17:04 Discontinued Medications Albuterol (Albuterol Rt 2.5 Mg/0.5 Ml Nebu) 5 mg INH X1 ONE Stop: 01/24/24 17:06 Last Admin: 01/24/24 17:28 Dose: 5 mg Albuterol/Ipratropium (Albuterol/Ipratropium (Duoneb) Rt Silvina 3 Ml Nebu) 3 ml INH X1 ONE Stop: 01/24/24 18:39 Last Admin: 01/24/24 18:45 Dose: 3 ml Furosemide (Furosemide Inj 10 Mg/Ml 4ml Vial) 40 mg IVP X1 ONE Stop: 01/24/24 19:20 Last Admin: 01/24/24 19:43 Dose: 40 mg Ceftriaxone Sodium/Dextrose (Rocephin/D5w 1gm Iv Premix) 50 mls @ 100 mls/hr IV X1 ONE Stop: 01/24/24 19:26 Last Infusion: 01/24/24 19:48 Dose: Infused Ipratropium [place] (Ipratropium Rt 0.5 Mg/ 2.5 Ml Nebu) 1 mg INH X1 ONE Stop: 01/24/24 17:06 Last Admin: 01/24/24 17:29 Dose: 1 mg Assessment & Plan Plan Colton Sandoval is a 63-year-old male with a past medical history of type 2 diabetes mellitus, hyperlipidemia, and hypertension who was admitted for new onset CHF and pneumonia vs osteomyelitis. #AHRF, secondary to #Acute decompensated CHF #HFpEF (EF 60-65%) Presents with shortness of breath, BLE edema, orthopnea, and PND. Requiring oxygen (8 L oxy mask), BNP 671. CXR showed vascular congestion and pleural effusions. Echo on 09/2023 showed EF 60-65%, stage I diastolic dysfunction. -Furosemide 40 g IV twice daily -Daily weights, strict I/O, fluid restriction (1.5 L/day) -Keep K and Mg > 4 and 2, respectively #Sepsis, secondary to # ? Pneumonia vs osteomyelitis #Bilateral pleural effusions CXR showed possible pneumonia and x-ray of right foot showed osteomyelitis. SIRS 3/4: HR 107, RR 24, WBC 15. Source: PNA vs osteomyelitis -> sepsis. History of osteomyelitis of right foot status post TMA, consider MRI and change in abx coverage if no clinical improvement. -Azithromycin 500 mg IV daily -Ceftriaxone 1 g IV daily -Follow-up blood cultures #Acute on chronic kidney injury #Chronic kidney disease On admission, creatinine 2.8 with baseline of 2.0 -Diuresis as above -If cardiorenal, expect creatinine to improve with diuresis -Avoid nephrotoxic agents -Renally dose medications #Type 2 diabetes mellitus, insulin-dependent A1c 11.9% (09/2023). Glucose 242 on admission. -SSI ACHS -Glargine 10 units daily -Follow-up A1c #Hypertension Carvedilol 6.25 mg and HCTZ 50 mg seen on home medications. Pending med rec. -Amlodipine 10 mg p.o. daily -Lasix as above #Hyperlipidemia Atorvastatin 40 mg seen on home medications. Pending med rec. Hospital management: Disposition: 2-3 hospital nights Fluids: Deferred given fluid overload status Diet: Carbohydrate consistent Lines: Peripheral DVT prophylaxis: Heparin SC GI prophylaxis: Not indicated Del Angel: Not indicated CODE STATUS: Full code ----- Plan discussed with attending physician Dr. Anthony Lee MD PGY-1 Internal Medicine Attending Provider Attestation/Addendum Pt was evaluated and plan formulated together with the housestaff team. I have reviewed the residents note above and agree with most of its content. Please refer to the residents note for additional details.
[2024-01-24] MEDS: HEPARIN SOD INJ 5000 UNIT/ML VIAL SC (21:24)
[2024-01-24] MEDS: INSULIN HUM REGULAR 1 UNIT/0.01 ML (PER UNIT) SC (21:24)
[2024-01-25] VITALS (55 sets, daily range): BP systolic 146–169; BP diastolic 64–111; PULSE 63–104; RESP 10–150; TEMP 36.1–36.7; O2SAT 79–100; BMI 35.0
[2024-01-25] MEDS: LEVALBUTEROL RT 1.25 MG/0.5 ML NEBU INH ×3 (00:13→18:54)
[2024-01-25] MEDS: SODIUM CHLORIDE RT SOL 0.9% 3 ML NEBU INH ×3 (00:14→18:54)
--- NOTE | 2024-01-25 05:01 | PC.NURSE ---
Called resident to request PRN nausea medication. MD to place orders.
[2024-01-25] MEDS: ONDANSETRON INJ 2 MG/ML INJ 2 ML 4 MG IV (05:11)
[2024-01-25 05:12] LABS: Basophils % (Auto) 0 % (0-2.5); Eosinophils # (Auto) 0.1 Thou/mm3 (0.0-0.5); Eosinophils % (Auto) 1 % (0-10); Hematocrit 23.9 % (41.0-53.0); Immature Granulocytes % (Auto) 1 % (0-0); Immature Granulocytes Auto 0.16 Thou/mm3 (0.00-0.00); Lymphocytes # (Auto) 1.6 Thou/mm3 (1.0-4.8); Lymphocytes % (Auto) 10 % (10-50); Mean Corpuscular Hemoglobin 25.6 pg (25.0-35.0); Mean Corpuscular Volume 83 fL (80-100); Monocytes % (Auto) 6 % (0-12); Neutrophils # (Auto) 12.5 Thou/mm3 (1.8-7.7); Neutrophils % (Auto) 82 % (37-80); Nucleated Red Blood Cell % 0 /100 WBC (0); Platelet Count 386 Thou/mm3 (140-440); RDW Standard Deviation 43.7 fL (35.1-43.9); Red Blood Count 2.89 Miln/mm3 (4.50-5.90); White Blood Count 15.4 Thou/mm3 (3.8-10.6)
[2024-01-25 05:26] LABS: Hemoglobin 7.4 g/dL (13.5-16.0)
[2024-01-25] MEDS: FUROSEMIDE INJ 10 MG/ML 4ML VIAL 40 MG IVP ×3 (06:00→18:31)
[2024-01-25] MEDS: HEPARIN SOD INJ 5000 UNIT/ML VIAL SC ×3 (06:00→21:53)
[2024-01-25 06:19] LABS: Anion Gap 8 (7-16); BUN/Creatinine Ratio 22 Ratio (12-20); Blood Urea Nitrogen 60 mg/dL (9-23); Calcium 8.4 mg/dL (8.3-10.6); Carbon Dioxide 20.9 mMol/L (20.0-31.0); Chloride 108 mMol/L (98-107); Creatinine (Component) 2.7 mg/dL (0.6-1.3); Glucose 194 mg/dL (74-106); Magnesium 2.3 mg/dL (1.6-2.6); Osmolality,Calculated 295 (275-295); Phosphorous 3.9 mg/dL (2.4-5.1); Potassium 4.7 mMol/L (3.4-5.1); Sodium 137 mMol/L (136-145); eGFR 26 See Note
[2024-01-25 06:54] LABS: Glucose Estimated Average 131 mg/dL (80-131); Hemoglobin A1C 6.2 % Hgb (4.8-6.0)
[2024-01-25] MEDS: INSULIN HUM REGULAR 1 UNIT/0.01 ML (PER UNIT) SC ×4 (07:54→21:53)
[2024-01-25] MEDS: AZITHROMYCIN 250 MG TABLET 500 MG PO (07:54)
[2024-01-25] MEDS: amLODIPine BESYLATE 5 MG TABLET 10 MG PO (07:55)
--- NOTE | 2024-01-25 11:41 | ESPR_ITS ---
<Statement entered by Angel Nielson DO - 01/25/24 21:00> Senior attestation: Patient was examined and case was reviewed with team including attending physician. Note reviewed, I agree with most of its contents and agree with the patient's care. Given concerns of worsening osteomyelitis compared to previous visits, general surgeon Dr. Serna has been consulted, recommendations pending. Antibiotics adjusted to vancomycin/cefepime, will continue diuresis. Angel Nielson DO PGY-3 Documentation for date of: 01/25/24 Subjective Subjective Interval history: Patient seen at bedside this morning. No overnight events. Patient was diaphoretic on my assessment, but was not having shortness of breath. Change antibiotic treatment to cefepime and vancomycin as given concern for Pseudomonas and MRSA. Patient mentioned that in his rehab center multiple residents had scabies and patient has multiple excoriations in the back and arms, will start permethrin and contact precautions. General surgery was consulted. Exam Vital Signs Temp Pulse Resp BP Pulse Ox O2 Del Method O2 Flow Rate 97.7 F 96 18 167/96 H 94 L Nasal Cannula 5 01/25/24 10:09 01/25/24 10:01/25/24 10:01/25/24 10:01/25/24 10:01/25/24 10:01/25/24 10:09 Narrative Exam General: A/O x3, diaphoretic Eyes: PERRL, EOMI. Anicteric, vision grossly intact. Ears: No ear pain, no ear discharge, Hearing grossly intact. Nose: No nasal discharge. Mouth/Throat: Dry mucous membranes, no redness, no lesions. Neck: Short neck, non-tender, no cervical lymphadenopathy. Lungs: Decreased breath sounds in ANGEL lower lobes, No accessory muscle use. Cardio: Normal S1/S2, regular rhythm, no murmurs, no JVD Abdomen: Soft, non-tender, no palpable masses, peristalsis present, no guarding or rebound. Extremities: Symmetrical, no significant deformities, 4+ peripheral edema , non-tender, peripheral pulses presents. Edema in lower back 1+ appreciated, R first toe amputation with ulcer-like wound (see attached image) Skin: No rashes, no lesions, warm to touch. Multiple excoriations in entire back and UE. Neuro: No focal neurological deficits. motor and sensory intact Psych: Cooperative, appropriate mood and effect. Objective Objective Narrative Objective Narrative: Labs 01/26/24 05:15 01/26/24 05:15 Labs: Laboratory Results - last 24 hr 01/24/24 01/24/24 01/24/24 17:15 18:05 19:00 WBC 15.4 H RBC 3.49 L Hgb 8.9 L Hct 28.6 L MCV 82 MCH 25.5 MCHC 31.1 RDW Std Deviation 42.8 Plt Count 452 H Neut % (Auto) 78 Lymph % (Auto) 12 Moody % (Auto) 7 Eos % (Auto) 2 Baso % (Auto) 0 Neut # (Auto) 12.0 H Lymph # (Auto) 1.8 Moody # (Auto) 1.0 H Eos # (Auto) 0.4 Baso # (Auto) 0.1 Immature Gran # (Auto) 0.16 H Absolute Nucleated RBC 0.00 Immature Gran % 1 H Nucleated RBC % 0 PT 11.3 INR 1.0 APTT 29.3 Sodium 135 L Potassium 5.1 Chloride 107 Carbon Dioxide 21.0 Anion Gap 7 BUN 56 H Creatinine 2.8 H Estim Creat Clear Calc Not Performed. eGFR 25 L BUN/Creatinine Ratio [address] Glu mg/dL Hemoglobin A1c Calculated Osmolality 293 Lactic Acid 1.5 Calcium 8.6 Corrected Calcium 8.6 Phosphorus Magnesium 2.3 Total Bilirubin 0.4 AST 19 ALT 30 Alkaline Phosphatase 226 H Troponin I < 0.020 B-Natriuretic Peptide 671 H* Total Protein 8.0 Albumin 4.0 Globulin 4.0 H Albumin/Globulin Ratio 1.0 L Procalcitonin 0.11 Ur Collection Type Clean Catch Urine Color Yellow Urine Clarity Clear Urine pH 6.0 Ur Specific [place] 1.019 Urine Protein 3+ A Urine Glucose (UA) 3+ A Urine Ketones Negative Urine Blood 1+ A Urine Nitrite Negative Urine Bilirubin Negative Urine Urobilinogen (Auto) Negative Ur Leukocyte Esterase Negative Urine RBC 15 H Urine WBC 0 Ur Squamous Epith Cells 2 Urine Bacteria None Hyaline Casts < 1 Ur Culture Indicated? Not Indicated Stool Occult Blood Urine Opiates Screen Positive A Urine Fentanyl Screen Negative Ur Barbiturates Screen Negative U Amphetamin/Meth Scrn Negative U Benzodiazepines Scrn Negative U Cocaine Metab Screen Negative U Marijuana (THC) Screen Negative Blood Type O Positive Antibody Screen NEGATIVE Blood Bank Wristband ID Yes 01/24/24 01/25/24 19:21 04:37 WBC 15.4 H RBC 2.89 L Hgb 7.4 L Hct 23.9 L MCV 83 MCH 25.6 MCHC 31.0 RDW Std Deviation 43.7 Plt Count 386 D Neut % (Auto) 82 H Lymph % (Auto) 10 Moody % (Auto) 6 Eos % (Auto) 1 Baso % (Auto) 0 Neut # (Auto) 12.5 H Lymph # (Auto) 1.6 Moody # (Auto) 1.0 H Eos # (Auto) 0.1 Baso # (Auto) 0.0 Immature Gran # (Auto) 0.16 H Absolute Nucleated RBC 0.00 Immature Gran % 1 H Nucleated RBC % 0 PT INR APTT Sodium 137 Potassium 4.7 Chloride 108 H Carbon Dioxide 20.9 Anion Gap 8 BUN 60 H Creatinine 2.7 H Estim Creat Clear Calc Not Performed. eGFR 26 L BUN/Creatinine Ratio 22 H Glucose [address] Glu mg/dL 131 Hemoglobin A1c 6.2 H Calculated Osmolality 295 Lactic Acid Calcium 8.4 Corrected Calcium Phosphorus 3.9 Magnesium 2.3 Total Bilirubin AST ALT Alkaline Phosphatase Troponin I B-Natriuretic Peptide Total Protein Albumin Globulin Albumin/Globulin Ratio Procalcitonin Ur Collection Type Urine Color Urine Clarity Urine pH Ur Specific [place] Urine Protein Urine Glucose (UA) Urine Ketones Urine Blood Urine Nitrite Urine Bilirubin Urine Urobilinogen (Auto) Ur Leukocyte Esterase Urine RBC Urine WBC Ur Squamous Epith Cells Urine Bacteria Hyaline Casts Ur Culture Indicated? Stool Occult Blood Negative Urine Opiates Screen Urine Fentanyl Screen Ur Barbiturates Screen U Amphetamin/Meth Scrn U Benzodiazepines Scrn U Cocaine Metab Screen U Marijuana (THC) Screen Blood Type Antibody Screen Blood Bank Wristband ID Quality Measures Quality Measures VTE prophylaxis and sepsis Current suspected stage: sepsis Possible source: pulmonary and bone/joint Blood cultures ordered: yes Antibiotic ordered: Yes Assessment & Plan Assessment Current Active Medications: Generic Name Dose Route Start Last Admin Trade Name Freq PRN Reason Stop Dose Admin Acetaminophen 650 mg 01/24/24 19:40 Acetaminophen 325 Mg Tablet PO 02/23/24 19:39 Q6H PRN Fever >101.5 Amlodipine Besylate 10 mg 01/25/24 09:00 01/25/24 07:55 Amlodipine Besylate 5 Mg Tablet PO 02/24/24 08:59 10 mg QDAY ANAMARIA Administration Dextrose 25 ml 01/24/24 19:42 Dextrose 50%-Water Inj 50 Ml Syringe IV 02/23/24 19:41 Q15MIN PRN BG 50-70 responsive npo pt Dextrose 50 ml 01/24/24 19:42 Dextrose 50%-Water Inj 50 Ml Syringe IV 02/23/24 19:41 Q15MIN PRN BG <50 OR BG <70 & pt unresponsive Furosemide 40 mg 01/25/24 06:00 01/25/24 06:00 Furosemide Inj 10 Mg/Ml 4ml Vial IVP 02/24/24 05:59 40 mg BIDD ANAMARIA Administration Glucagon 1 mg 01/24/24 19:42 Glucagon Inj 1 Mg Vial IM Q15MIN PRN BG <70, and no IV access Heparin Sodium (Porcine) 5,000 unit 01/24/24 22:00 01/25/24 06:00 Heparin Sod Inj 5000 Unit/Ml Vial SC 02/07/24 21:59 5,000 unit Q8HR ANAMARIA Administration Cefepime HCl 1 gm/ Sodium 50 mls @ 100 mls/hr 01/25/24 11:15 Chloride IV 02/01/24 11:14 QDAY ANAMARIA Vancomycin/Sodium Chloride 200 mls @ 120 mls/hr 01/25/24 11:30 Vancomycin/Ns 1 Gm Ivpb IV 01/25/24 13:09 X1 ONE Insulin Glargine 10 unit 01/25/24 09:00 Insulin Glargine (Lantus) 5 Unit/0.05 Ml (Per 5 Units) SC 02/24/24 08:59 QDAY ANAMARIA Insulin Human Regular 0 unit 01/24/24 21:00 01/25/24 07:54 Insulin Hum Regular 1 Unit/0.01 Ml (Per Unit) SC 02/23/24 20:59 2 unit ACHS ANAMARIA Administration Protocol Ipratropium [place] 0.5 mg 01/24/24 21:01 Ipratropium Rt 0.5 Mg/ 2.5 Ml Nebu INH 02/23/24 21:00 Q6HRRT PRN SHORTNESS OF BREATH OR WHEEZE Levalbuterol HCl 1.25 mg 01/25/24 01:00 01/25/24 06:17 Levalbuterol Rt 1.25 Mg/0.5 Ml Nebu INH 02/24/24 00:59 1.25 mg Q6HRRT ANAMARIA Administration Ondansetron HCl 4 mg 01/25/24 05:02 01/25/24 05:11 Ondansetron Inj 2 Mg/Ml Inj 2 Ml IV 02/24/24 05:01 4 mg Q6HR PRN Administration NAUSEA OR VOMITING Protocol Pharmacy Consult 1 each 01/25/24 11:15 Vancomycin Pharmacy To Dose 1 Each Each IV 02/24/24 11:14 QDAY PRN CONSULT Sodium Chloride 3 ml 01/24/24 21:01 Sodium Chloride Rt Silvina 0.9% 3 Ml Nebu INH 02/23/24 21:00 Q6HRRT PRN SOLN Plan 63-year-old male with past medical history of HFpEF (EF 60 to 65%) DM2, hyperlipidemia, hypertension, prior osteomyelitis of right first toe s/p amputation was admitted to the hospital on 01/24/2024 for acute hypoxic respiratory failure secondary to acute decompensated heart failure exacerbation and sepsis likely secondary to pneumonia versus osteomyelitis. #Acute hypoxic respiratory failure #Acute decompensated heart failure exacerbation #HFpEF (EF 60 to 65% 09/2023) ?Patient came in with shortness of breath, bilateral lower extremity edema, and orthopnea ?Patient's last echo on 09/2023 showed an ejection fraction of 60 to 65% ?Chest x-ray showed moderate heart failure ? BNP 671 Plan: ?Continue IV Lasix 40 mg twice daily -Additional Lasix 40 x1 ?Strict CHAR's ? Fluid restrictions 1500 mL daily ? Daily weights ? Keep potassium above 4 and magnesium above 2 ?Will continue to monitor #Sepsis likely secondary to pneumonia versus osteomyelitis #Pneumonia #Bilateral pleural effusions #Osteomyelitis ?Initially patient met SIRS criteria 2 out of 4 with leukocytosis and tachypnea ?Chest x-ray showed bilateral pneumonia and pleural effusions ?Right foot x-ray showed osteomyelitis in the amputated first metatarsal and second metatarsophalangeal joint ?WBC 15.4 ?Discontinue azithromycin and Rocephin Plan: ?Continue cefepime and vancomycin [01/25/2024?] ?No IV fluids given patient's clinical picture of heart failure exacerbation ?Blood cultures ordered ?Breathing treatments as needed -Wound care ?Referral to physical therapy ?General Surgery consulted, appreciate recommendations #JOSE MARIA on CKD ?Patient has some underlying CKD since last year with GFR in the high 30s to 40s ?BUN 16 and creatinine 2.7 today Plan: ?Avoid nephrotoxic agents ? Renally dose medications ? Will continue to monitor #Scabies ? Patient stated that multiple residents in his rehab center were diagnosed with scabies. ?Patient has multiple excoriations on his entire back and bilateral upper extremities. Plan: ? Permethrin x 1 ? Contact precautions ?will continue to monitor #Normocytic normochromic anemia ?Hgb 7.4 Plan: ?Will transfuse if hemoglobin less than 7 ?Will continue to monitor #Hx of DM2 ?A1c 6.2 on 01/25/2024 Plan: ?ISS ? Accu-Cheks and hypoglycemia protocol ? Will continue to monitor #Hx of hyperlipidemia ?Triglycerides 227, cholesterol 148, LDL 86, HDL 17 on 10/05/2023 Plan: ?Restarted atorvastatin 40 mg #Hx of HTN ?Continue amlodipine 10 mg daily Disposition: Patient admitted to [facility] Diet: carb consistent GI prophylaxis: not indicated DVT prophylaxis: Heparin sc Code: Full Case disclosed with Attending Dr. Romano and My senior Dr. Nielson PGY3. Henri Perkins PGY1 Attending Provider Attestation/Addendum I reviewed labs, imaging, EKG, home medications and prior available records. Face to face evaluation was performed by me. I have personally examined the patient and discussed assessment and plan with the IM team. I reviewed the resident note and agree with the plan with exceptions as below. Sepsis secondary to pneumonia versus right foot osteomyelitis: Started vancomycin/cefepime. Follow-up cultures. Right foot osteomyelitis: Consulted surgery for possible debridement. Start wound care. CHF exacerbation: In the setting of history of heart failure with preserved EF of 60 to 65%. Started IV diuresis. Monitor I's and O's. Acute hypoxic respiratory failure: Likely in setting of CHF exacerbation. Management as above. Wean off oxygen as tolerated. JOSE MARIA on CKD: Likely cardiorenal. Diuresis as above. Monitor kidney function. Avoid nephrotoxins. Renally dosed medications.
--- NOTE | 2024-01-25 12:08 | PC.CC ---
Pt Colton Sandoval is a 63 yr old male admitted to hospitalist services for new onset CHF, sepsis 2/2 to PNA vs. Osteomyelitis. PRODUCT SALES ENGINEER CC met with pt at bedside to complete initial assessment. At time of encounter pt is noted to be alert and oriented to person, place and situation. Pt able to confirm all demographic information. Pt expressed understanding admission orders. Pt reports just being released from [facility], being D/c to SNF setting following last hospitalization on 10/09/23. Pt reports coming from home, [facility] [facility], where he lives with a friend. Pt identifies his daughter Edel Sandoval [phone] as surrogate DM. Per pt since D/c from SNF he has used a cane to support ambulation. Pt states needing some support with completing his ADLs. Pt states he does not use O2 in the home, but in ED pt on 5L via NC. Pt is diabetic on insulin for management. Pt is not on dialysis. Per pt at this time he does not have a primary provider. Pt states he would like to D/c home at time of D/c, per pt family will be able to transport. Pt will likely need evaluation for SNF placement vs. HH referral, with wound care. Pt will need PCP resources. Pt should be evaluated for DME requirements.
[2024-01-25] MEDS: CEFEPIME INJ 1 GM in SODIUM CHLORIDE 0.9% (P) 50 ML IV (13:32)
--- NOTE | 2024-01-25 13:48 | PC.NURSE ---
Pt resting in bed. no changes in condition.
[2024-01-25] MEDS: VANCOMYCIN/NS 1 GM IVPB 200 ML IV (14:21)
--- NOTE | 2024-01-25 14:36 | PC.NURSE ---
Dr. Kim contacted about pt c/o sob and difficulty breathing. Pt on 5 L NC and satting 94-97%.Dr. Kim asked about bi pap or cpap, MD states he will look into pt's condition.
[2024-01-25] MEDS: IPRATROPIUM RT 0.5 MG/ 2.5 ML NEBU INH (19:09)
--- NOTE | 2024-01-25 19:34 | XR_ITS ---
Examination: AP chest single view Technique: AP portable semiupright chest single view Exam date and time: January 25, 2024 195 hrs. Comparison January 24, 2024 Indications: Shortness of breath this week Findings: Moderate heart failure Mild enlargement cardiac contour Prominent vascular congestion with bilateral perihilar edema Superimposed pneumonia at the lung bases with pleural fluid Impression: Moderate heart failure Bibasilar pneumonia
[2024-01-25] MEDS: BUMETANIDE INJ 0.25 MG/ML VIAL 4 ML 2 MG IVP (20:05)
[2024-01-25] MEDS: PERMETHRIN CR 5% 60 GM TUBE TOP (20:09)
[2024-01-25 20:20] LABS: Base Excess -3 (-3-3); HCO3 22 mEq/L (20-26); Inspired Oxygen, FIO2 40 %; O2 Saturation 87 % (91-98); PCO2 39 mmHg (32.0-48.0); pH, Arterial 7.36 (7.35-7.45)
[2024-01-25 20:24] LABS: Allen Test Performed/OK; PO2 53 mmHg (83-108); Puncture Site Right Radial
[2024-01-26] VITALS (32 sets, daily range): BP systolic 126–176; BP diastolic 68–115; PULSE 63–104; RESP 12–78; TEMP 36.2–37.3; O2SAT 90–100; BMI 34.9
[2024-01-26] MEDS: SODIUM CHLORIDE RT SOL 0.9% 3 ML NEBU INH ×4 (00:42→19:04)
[2024-01-26] MEDS: LEVALBUTEROL RT 1.25 MG/0.5 ML NEBU INH ×4 (00:42→19:04)
[2024-01-26] MEDS: IPRATROPIUM RT 0.5 MG/ 2.5 ML NEBU INH (00:42)
--- NOTE | 2024-01-26 01:27 | ESCONSULT_ITS ---
HPI Data of Consult Requesting Physician: Randy Cruz MD Admitting Provider: Randy Cruz MD Attending Provider: Randy Cruz MD Primary Care Provider: Physician No Primary/Family Consult Narrative Reason for consult: [facility] History of present illness: Colton Sandoval is a 63-year-old male with a past medical history of type 2 diabetes mellitus, hyperlipidemia, and hypertension who presents with shortness of breath and chest discomfort. Symptoms started approximately a week ago but acutely worsened overnight to the point where he would get short of breath after just a few steps, prompting him to come to the ED. Endorses orthopnea, PND, and bilateral lower extremity edema. Regarding his chest pain, describes it as substernal, pressure-like, worse with activity, and does not subside with rest. Not on home oxygen. Previously admitted and treated for osteomyelitis of right hallux on 09/2023 and underwent transmetatarsal amputation discharged with 7-day course of doxycycline that patient completed. 01/26/2024: patient on 01/25/24 received Lasix 120 mg and 2 mg of Bumex with minimal urine output and continue to have difficulty breathing . He was initially placed on BiPAP which showed an ABG PaO2 of 53 after approximately 30 minutes on the BiPAP with 40% FiO2. Patient did remove his BiPAP and was on a nasal cannula he continued to desat on to the mid 80s he removed his nasal cannula and on room air he was saturating in the low 70s. I personally convince the patient to place his BiPAP again. We got an additional chest x-ray which shows worsening opacities consistent with pleural effusions worsening. Patient remained tachypneic pulling low volumes on the BiPAP. After consulting with my attending it was best option to transfer the patient to the intensive care unit for closer monitoring for potential for intubation and increased work of breathing. Other vitals were within normal limits. cc:: cc: Randy Cruz MD Exam Vital Signs Temp Pulse Resp BP Pulse Ox O2 Del Method O2 Flow Rate 97.9 F 69 27 H 147/79 H 98 Nasal Cannula 5 01/26/24 00:00 01/26/24 00:45 01/26/24 00:45 01/26/24 00:00 01/26/24 00:45 01/25/24 16:00 01/25/24 18:54 FiO2 40 01/26/24 00:45 Narrative Exam General: A/O x3, diaphoretic. Eyes: PERRL, EOMI. Anicteric, vision grossly intact. Ears: No ear pain, no ear discharge, Hearing grossly intact. Nose: No nasal discharge. Mouth/Throat: Dry mucous membranes, no redness, no lesions. Neck: Short neck, non-tender, no cervical lymphadenopathy. Lungs: Decreased breath sounds in ANGEL lower lobes with wheezing and crackles, accessory muscle use. Cardio: Normal S1/S2, regular rhythm, no murmurs, no JVD Abdomen: Soft, non-tender, no palpable masses, peristalsis present, no guarding or rebound. Extremities: Symmetrical, no significant deformities, 4+ peripheral edema , non-tender, peripheral pulses presents. Edema in lower back 1+ appreciated, R first toe amputation with ulcer-like wound (see attached image) Skin: No rashes, no lesions, warm to touch. Multiple excoriations in entire back and UE. Neuro: No focal neurological deficits. motor and sensory intact. Psych: Cooperative, appropriate mood and effect. Results Labs 01/25/24 04:37 01/25/24 04:37 Labs: Short CBC 01/25/24 Range/Units 04:37 WBC 15.4 H (3.8-10.6) Thou/mm3 Hgb 7.4 L (13.5-16.0) g/dL Hct 23.9 L (41.0-53.0) % Plt Count 386 D (140-440) Thou/mm3 BMP 01/25/24 04:37 Sodium 137 Potassium 4.7 Chloride 108 H Carbon Dioxide 20.9 BUN 60 H Creatinine 2.7 H Glucose 194 H Calcium 8.4 ABG Interpretation ABG results: 01/25/24 01/25/24 19:50 20:13 ABG pH Cancelled 7.36 ABG pCO2 Cancelled 39 ABG pO2 Cancelled 53 L* ABG HCO3 Cancelled 22 ABG O2 Saturation Cancelled 87 L ABG Base Excess Cancelled -3 Quality Measures Quality Measures none Medications Home Medications and Allergies Allergies Allergy/AdvReac Type Severity Reaction Status Date / Time No Known Allergies Allergy Verified 06/19/22 16:16 Visit Medications Acetaminophen (Acetaminophen 325 Mg Tablet) 650 mg PO Q6H PRN PRN Reason: Fever >101.5 Stop: 02/23/24 19:39 Amlodipine Besylate (Amlodipine Besylate 5 Mg Tablet) 10 mg PO QDAY [facility] Stop: 02/24/24 08:59 Last Admin: 01/25/24 07:55 Dose: 10 mg Dextrose (Dextrose 50%-Water Inj 50 Ml Syringe) 25 ml IV Q15MIN PRN PRN Reason: BG 50-70 responsive npo pt Stop: 02/23/24 19:41 Dextrose (Dextrose 50%-Water Inj 50 Ml Syringe) 50 ml IV Q15MIN PRN PRN Reason: BG <50 OR BG <70 & pt unresponsive Stop: 02/23/24 19:41 Furosemide (Furosemide Inj 10 Mg/Ml 4ml Vial) 40 mg IVP BIDD ANAMARIA Stop: 02/24/24 05:59 Last Admin: 01/25/24 18:31 Dose: 40 mg Glucagon (Glucagon Inj 1 Mg Vial) 1 mg IM Q15MIN PRN PRN Reason: BG <70, and no IV access Heparin Sodium (Porcine) (Heparin Sod Inj 5000 Unit/Ml Vial) 5,000 unit SC Q8HR ANAMARIA Stop: 02/07/24 21:59 Last Admin: 01/25/24 21:53 Dose: 5,000 unit Cefepime HCl 1 gm/ Sodium (Chloride) 50 mls @ 100 mls/hr IV QDAY [facility] Stop: 02/01/24 11:14 Last Infusion: 01/25/24 14:10 Dose: Infused Insulin Glargine (Insulin Glargine (Lantus) 5 Unit/0.05 Ml (Per 5 Units)) 10 unit SC QDAY [facility] Stop: 02/24/24 08:59 Last Admin: 01/25/24 13:26 Dose: Not Given Insulin Human Regular (Insulin Hum Regular 1 Unit/0.01 Ml (Per Unit)) 0 unit SC [facility]; Protocol Stop: 02/23/24 20:59 Last Admin: 01/25/24 21:53 Dose: 1 unit Ipratropium [place] (Ipratropium Rt 0.5 Mg/ 2.5 Ml Nebu) 0.5 mg INH Q6HRRT PRN PRN Reason: SHORTNESS OF BREATH OR WHEEZE Stop: 02/23/24 21:00 Last Admin: 01/26/24 00:42 Dose: 0.5 mg Levalbuterol HCl (Levalbuterol Rt 1.25 Mg/0.5 Ml Nebu) 1.25 mg INH Q6HRRT ANAMARIA Stop: 02/24/24 00:59 Last Admin: 01/26/24 00:42 Dose: 1.25 mg Ondansetron HCl (Ondansetron Inj 2 Mg/Ml Inj 2 Ml) 4 mg IV Q6HR PRN; Protocol PRN Reason: NAUSEA OR VOMITING Stop: 02/24/24 05:01 Last Admin: 01/25/24 05:11 Dose: 4 mg Pharmacy Consult (Vancomycin Pharmacy To Dose 1 Each Each) 1 each IV QDAY PRN PRN Reason: CONSULT Stop: 02/24/24 11:14 Sodium Chloride (Sodium Chloride Rt Silvina 0.9% 3 Ml Nebu) 3 ml INH Q6HRRT PRN PRN Reason: SOLN Stop: 02/23/24 21:00 Last Admin: 01/26/24 00:42 Dose: 3 ml Discontinued Medications Albuterol (Albuterol Rt 2.5 Mg/0.5 Ml Nebu) 5 mg INH X1 ONE Stop: 01/24/24 17:06 Last Admin: 01/24/24 17:28 Dose: 5 mg Albuterol/Ipratropium (Albuterol/Ipratropium (Duoneb) Rt Silvina 3 Ml Nebu) 3 ml INH X1 ONE Stop: 01/24/24 18:39 Last Admin: 01/24/24 18:45 Dose: 3 ml Azithromycin (Azithromycin 250 Mg Tablet) 500 mg PO QDAY [facility]; Protocol Stop: 02/01/24 08:59 Last Admin: 01/25/24 07:54 Dose: 500 mg Bumetanide (Bumetanide Inj 0.25 Mg/Ml Vial 4 Ml) 2 mg IVP X1 ONE Stop: 01/25/24 19:51 Last Admin: 01/25/24 20:05 Dose: 2 mg Furosemide (Furosemide Inj 10 Mg/Ml 4ml Vial) 40 mg IVP X1 ONE Stop: 01/24/24 19:20 Last Admin: 01/24/24 19:43 Dose: 40 mg Furosemide (Furosemide Inj 10 Mg/Ml 4ml Vial) 40 mg IVP X1 ONE Stop: 01/25/24 14:14 Last Admin: 01/25/24 15:19 Dose: 40 mg Ceftriaxone Sodium/Dextrose (Rocephin/D5w 1gm Iv Premix) 50 mls @ 100 mls/hr IV X1 ONE Stop: 01/24/24 19:26 Last Infusion: 01/24/24 19:48 Dose: Infused Ceftriaxone Sodium/Dextrose (Rocephin/D5w 1gm Iv Premix) 50 mls @ 100 mls/hr IV 2100 ANAMARIA Stop: 02/01/24 20:59 Azithromycin 500 mg/ Sodium (Chloride) 250 mls @ 250 mls/hr IV QDAY ANAMARIA Stop: 01/31/24 19:44 Last Admin: 01/25/24 06:49 Dose: Not Given Vancomycin/Sodium Chloride (Vancomycin/Ns 1 Gm Ivpb) 200 mls @ 120 mls/hr IV X1 ONE Stop: 01/25/24 13:09 Last Admin: 01/25/24 14:21 Dose: 120 mls/hr Ipratropium [place] (Ipratropium Rt 0.5 Mg/ 2.5 Ml Nebu) 1 mg INH X1 ONE Stop: 01/24/24 17:06 Last Admin: 01/24/24 17:29 Dose: 1 mg Permethrin (Permethrin Cr 5% 60 Gm Tube) 0 gm TOP X1 ONE Stop: 01/25/24 17:56 Last Admin: 01/25/24 20:09 Dose: 1 applicatio Sodium Chloride (Sodium Chloride Rt Silvina 0.9% 3 Ml Nebu) 3 ml INH PRN PRN PRN Reason: SOLN Stop: 02/23/24 17:04 Last Admin: 01/25/24 06:17 Dose: 3 ml Assessment & Plan Plan 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 No valvular disease noted. POCUS at bedside showed plethoric IVC with notable hepatic venous congestion Plan: -Repeat echo to reassess EF -Continue diuresis, seems more responsive to Bumex -Fluid restriction -Cont home meds (amlodipine/statin) Pulm: #Acute hypoxic respiratory failure likely secondary to CAP versus fluid overload due to HFpEF exacerbation #ANGEL pleural effusions Etiology likely secondary to heart failure dx: Chest x-ray showing significant opacity consistent with pleural effusions predominantly in the right side POCUS at bedside showed Catalina B lines >5 lines Too unstable for CT chest at this time Plan: -Continue BiPAP, low threshold for intubation -DuoNebs -Diurese -Thoracenthesis -Repeat ABG GI: No active problems Renal: #JOSE MARIA on CKD Etiology: prerenal in the setting possible cardiorenal type 1 (decreased effective volume) in the setting of fluid overload Dx: Cr 2.7, UOP rate 0.5 cc/kg/hr in after 120mg and bumex 2mg x1 Plan: -Monitor UOP -Cont diuretics -F/U urine electrolytes -If kidney function continues to worsen consider nephrology consultation Endo: #T2DM (A1c 6.2%) Plan: -ISS protocol Heme: #Leukocytosis- likely reactive #Normocytic anemia- etiology unknown Leukocytosis seems likely either reactive versus a infectious process due to possible pneumonia. Regards to his normocytic anemia likely either secondary to iron deficiency anemia versus renal disease. Plan: -Iron panel and ferritin -Vit b12 and folate lvl ordered -F/U CBC ID: #Sepsis d/t CAP vs OM Patient chest x-ray showed bilateral opacities and consolidations with pleural effusions. Right foot x-ray showed osteomyelitis in the amputated first metatarsal and second metatarsal joint. Patient received antibiotics Plan: -Cont cefepime (01/25/2024 - -F/U cx Skin/MSK: #Scabies Patient stated that multiple residents in his rehab center were diagnosed with scabies. Patient has multiple excoriations on his entire back and bilateral upper extremities. Plan: ?Permethrin x 1 ?Contact precautions ?Will continue to monitor ICU Health maintenance: Mechanical ventilation: BiPAP Sedation: None FEN: Cardiac, with fluid restriction 1500ml DVT ppx: Heparin sq GI ppx: None Del Angel: None IV lines: 2 IVP Central line: None Arterial line: None Code status: FULL code Dispo: Transfer to ICU Patient's care was discussed with my attending physician, Dr. Anthony Webster MD Internal Medicine PGY-3 Attending Provider Attestation/Addendum Pt was evaluated and plan formulated together with the housestaff team. I have reviewed the residents note above and agree with most of its content. Please refer to the residents note for additional details.
--- NOTE | 2024-01-26 01:52 | ECHO_ITS ---
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 16 - 28 cm?/m? Ascending Aorta Diameter 2.7 cm M-MODE Aortic Root Diameter MM 2.8 cm LA Systolic Diameter MM 4.3 cm LA Ao Ratio MM 1.5 AV Cusp Separation MM 2.1 cm DOPPLER AV Peak Velocity 157.0 cm/s AV Peak Gradient 9.9 mmHg AV Mean Gradient 6.0 mmHg AV Velocity Time Integral 34.7 cm LVOT Peak Velocity 126.0 cm/s LVOT Peak Gradient 6.4 mmHg LVOT Velocity Time Integral 26.5 cm LVOT Cardiac Index 2944.9 cm?/min?m? AV Area Cont Eq vti 1.9 cm? AV Area Cont Eq pk 2.0 cm? MV Peak Velocity 159.0 cm/s MV Peak Gradient 10.1 mmHg MV Mean Velocity 90.1 cm/s MV Mean Gradient 4.0 mmHg MV Area PHT 5.6 cm? MR Peak Velocity 314.0 cm/s MR Peak Gradient 39.4 mmHg Mitral E Point Velocity 108.0 cm/s Mitral A Point Velocity 82.0 cm/s Mitral E to A Ratio 1.3 LV E' Lateral Velocity 9.6 cm/s Mitral E to LV E' Lateral Ratio 11.3 LV E' Septal Velocity 6.6 cm/s Mitral E to LV E' Septal Ratio 16.3 FINDINGS Left Ventricle Normal left ventricular size, wall thickness, systolic function with no obvious regional wall motion abnormalities. The ejection fraction is visually estimated at 50-55%. Right Ventricle The right ventricle is normal in size and systolic function. Left Atrium The left atrium is normal by two-dimensional, color flow and Doppler imaging with no structural abnormalities, no thrombus formation present. Right Atrium The right atrium is normal by two-dimensional imaging, color flow and Doppler imaging with no struct ural abnormalities, no thrombus formation present. Atrial Septum The interatrial septum appears normal with no evidence of a shunt. Aorta The aorta is normal by two-dimensional, color flow and Doppler interrogation. Mitral Valve The mitral valve is normal by two-dimensional, color flow and Doppler interrogation. There is trace mitral valve regurgitation. Aortic Valve The aortic valve is trileaflet and normal by two-dimensional, color flow and Doppler interrogation. There is no significant aortic valve regurgitation. Tricuspid Valve The tricuspid valve is normal by two-dimensional, color flow and Doppler interrogation. There is tra ce tricuspid valve regurgitation. Pulmonic Valve There is no significant pulmonic valve regurgitation. Vessels The pulmonary artery appears normal. The inferior vena cava pulmonary and hepatic veins appear pito l. Pericardium The pericardium is normal by two-dimensional imaging. There is no significant pericardial effusion. Other Findings Left pleural effusion present. CONCLUSIONS Indication: CHF Normal LV size and function. Estimated EF 50-55% Normal RV size and function. Trace MR, TR. Left pleural effusion present. Kyle Soriano (Electronically Signed) Final Date: 26 January 2024 17:35
[2024-01-26] MEDS: LABETALOL INJ 5 MG/ML VIAL 20 ML 10 MG IVP (02:22)
[2024-01-26 03:41] LABS: Base Excess -3 (-3-3); HCO3 22 mEq/L (20-26); Inspired Oxygen, FIO2 40 %; O2 Saturation 96 % (91-98); PCO2 39 mmHg (32.0-48.0); PO2 77 mmHg (83-108); pH, Arterial 7.36 (7.35-7.45)
[2024-01-26 03:43] LABS: Allen Test Performed/OK; Puncture Site Right Brachial
[2024-01-26] MEDS: HEPARIN SOD INJ 5000 UNIT/ML VIAL SC ×2 (05:17→21:05)
--- NOTE | 2024-01-26 05:20 | PC.NURSE ---
0455 patient sitting on edge of the bed, Bipap off and alarming. patient desatting to the low 80s on room air. Convinced patient to put on oxy mask and reassessment of saturations climbed to 93% on 8L oxy. Dr. Webster at bedside 0500 explaining the need for bipap and allowed patient to rest in bed with oxy mask. patient short of breath and agitated, patient positioned at 45 degrees and given call light for any needs.
[2024-01-26 05:40] LABS: Basophils # (Auto) 0.1 Thou/mm3 (0.0-0.2); Basophils % (Auto) 0 % (0-2.5); Eosinophils # (Auto) 0.4 Thou/mm3 (0.0-0.5); Eosinophils % (Auto) 3 % (0-10); Hematocrit 24.5 % (41.0-53.0); Immature Granulocytes % (Auto) 1 % (0-0); Immature Granulocytes Auto 0.12 Thou/mm3 (0.00-0.00); Lymphocytes # (Auto) 1.4 Thou/mm3 (1.0-4.8); Lymphocytes % (Auto) 10 % (10-50); Mean Corpuscular HGB Conc 30.2 g/dl (31.0-37.0); Mean Corpuscular Hemoglobin 25.3 pg (25.0-35.0); Mean Corpuscular Volume 84 fL (80-100); Monocytes % (Auto) 7 % (0-12); Neutrophils # (Auto) 11.2 Thou/mm3 (1.8-7.7); Neutrophils % (Auto) 79 % (37-80); Nucleated Red Blood Cell % 0 /100 WBC (0); Platelet Count 401 Thou/mm3 (140-440); RDW Standard Deviation 44.9 fL (35.1-43.9); Red Blood Count 2.92 Miln/mm3 (4.50-5.90); White Blood Count 14.2 Thou/mm3 (3.8-10.6)
[2024-01-26 05:41] LABS: Hemoglobin 7.4 g/dL (13.5-16.0)
[2024-01-26 06:09] LABS: Vitamin B12 342 pg/mL (211-911)
[2024-01-26 06:22] LABS: Anion Gap 9 (7-16); BUN/Creatinine Ratio 22 Ratio (12-20); Blood Urea Nitrogen 60 mg/dL (9-23); Calcium 8.6 mg/dL (8.3-10.6); Carbon Dioxide 20.5 mMol/L (20.0-31.0); Chloride 109 mMol/L (98-107); Creatinine (Component) 2.7 mg/dL (0.6-1.3); Estimated Creatinine Clearance 30.7 mL/min (>60); Glucose 135 mg/dL (74-106); Magnesium 2.3 mg/dL (1.6-2.6); Osmolality,Calculated 294 (275-295); Phosphorous 4.7 mg/dL (2.4-5.1); Potassium 5.2 mMol/L (3.4-5.1); Sodium 138 mMol/L (136-145); eGFR 26 See Note
[2024-01-26 06:30] LABS: Ferritin 132 ng/mL (10.5-307.3); Total Iron Binding Capacity 243 mcg/dL (250-425)
[2024-01-26 06:40] LABS: Iron 18 mcg/dL (65-175); Percent Iron Saturation 7 % (20-55); Unsaturated Iron Binding 225 (225-295)
[2024-01-26] MEDS: SOD POLYSTYRENE SULFON SUSP 15 GM/60 ML BTL 30 GM PO (07:16)
[2024-01-26 07:28] LABS: Vancomycin,Random 9.7 mcg/mL
[2024-01-26] MEDS: carVEDILOL 3.125 MG TABLET 6.25 MG PO ×2 (07:49→16:30)
[2024-01-26] MEDS: amLODIPine BESYLATE 5 MG TABLET 10 MG PO (07:50)
[2024-01-26] MEDS: INSULIN HUM REGULAR 1 UNIT/0.01 ML (PER UNIT) SC ×3 (07:51→21:05)
[2024-01-26] MEDS: INSULIN GLARGINE (Lantus) 5 UNIT/0.05 ML (PER 5 UNITS) 10 UNIT SC (07:52)
[2024-01-26] MEDS: CEFEPIME INJ 1 GM in SODIUM CHLORIDE 0.9% (P) 50 ML IV (07:53)
[2024-01-26] MEDS: BUMETANIDE INJ 0.25 MG/ML VIAL 4 ML 2 MG IVP ×2 (07:55→21:06)
[2024-01-26] MEDS: VANCOMYCIN/NS 1 GM IVPB 200 ML IV (09:09)
--- NOTE | 2024-01-26 10:45 | PD.INTPROG ---
Documentation for date of: 01/26/24 Subjective Subjective Interval history: This is a 63yo M admitted to the ICU overnight for acute resp distress. The pt presented to the ER yesterday with SOB and LE edema with PND and orthopnea. He was started on NC without improvement and then initiated on Bipap. He was tx for heart failure and covered for poss PNA. Overnight has had a brisk UOP and improvement in his sxs. This AM he is back on NC and feeling better than on arrival. Notes improvement in SOB though still has some residual SOB. Afebrile and denies fever/n/v/chills Critical Care Note Critical care time (min.): 0 Exam Vital Signs Temp Pulse Resp BP Pulse Ox O2 Del Method O2 Flow Rate 99.0 F 95 25 H 171/92 H 96 Oxy Mask 5 01/26/24 08:00 01/26/24 09:02 01/26/24 09:02 01/26/24 08:00 01/26/24 09:02 01/26/24 08:00 01/26/24 08:00 FiO2 40 01/26/24 01:48 Narrative Exam Gen- NAD, AAOx3, nl body habitus HEENT- NC/AT, mucosa hydrated, sclera anicteric Chest- diminished breath sounds, no crackles heard at this time, HRRR, no bruits, no increased WOB Abd- s/nt/bs+ Ext- edema 2-3+ pitting b/l LE, pulses palp, no clubbing, no mottling, moves all 4 Physical Exam Completion Physical Exam Complete?: Yes 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 01/26/24 05:15 01/26/24 05:15 Labs: Laboratory Results - last 24 hr 01/25/24 01/25/24 01/26/24 19:50 20:13 03:33 WBC RBC Hgb Hct MCV MCH MCHC RDW Std Deviation Plt Count Neut % (Auto) Lymph % (Auto) Calloway % (Auto) Eos % (Auto) Baso % (Auto) Neut # (Auto) Lymph # (Auto) Calloway # (Auto) Eos # (Auto) Baso # (Auto) Immature Gran # (Auto) Absolute Nucleated RBC Immature Gran % Nucleated RBC % Puncture Site Cancelled Right Radial Right Brachial ABG pH Cancelled 7.36 7.36 ABG pCO2 Cancelled 39 39 ABG pO2 Cancelled 53 L* 77 L D ABG HCO3 Cancelled 22 22 ABG O2 Saturation Cancelled 87 L 96 ABG Base Excess Cancelled -3 -3 Oxygen Liter Flow Cancelled FiO2 Cancelled 40 40 Sodium Potassium Chloride Carbon Dioxide Anion Gap BUN Creatinine Estim Creat Clear Calc eGFR BUN/Creatinine Ratio Glucose Calculated Osmolality Calcium Phosphorus Magnesium Iron TIBC Iron Saturation Unsat Iron Binding Ferritin Vitamin B12 Folate Random Vancomycin 01/26/24 05:15 WBC 14.2 H RBC 2.92 L Hgb 7.4 L Hct 24.5 L MCV 84 MCH 25.3 MCHC 30.2 L RDW Std Deviation 44.9 H Plt Count 401 Neut % (Auto) 79 Lymph % (Auto) 10 Calloway % (Auto) 7 Eos % (Auto) 3 Baso % (Auto) 0 Neut # (Auto) 11.2 H Lymph # (Auto) 1.4 Calloway # (Auto) 1.0 H Eos # (Auto) 0.4 Baso # (Auto) 0.1 Immature Gran # (Auto) 0.12 H Absolute Nucleated RBC 0.00 Immature Gran % 1 H Nucleated RBC % 0 Puncture Site ABG pH ABG pCO2 ABG pO2 ABG HCO3 ABG O2 Saturation ABG Base Excess Oxygen Liter Flow FiO2 Sodium 138 Potassium 5.2 H D Chloride 109 H Carbon Dioxide 20.5 Anion Gap 9 BUN 60 H Creatinine 2.7 H Estim Creat Clear Calc 30.7 L eGFR 26 L BUN/Creatinine Ratio 22 H Glucose 135 H D Calculated Osmolality 294 Calcium 8.6 Phosphorus 4.7 Magnesium 2.3 Iron 18 L TIBC 243 L Iron Saturation 7 L Unsat Iron Binding 225 Ferritin 132 Vitamin B12 342 Folate 9.20 Random Vancomycin 9.7 Assessment & Plan Additional Assessment Additional Assessment: In summary this is a 63-year-old male admitted to the ICU with 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 Has been started on diuretics. echo pending. Resp Acute hypoxic resp failure- at this point in time felt to be 2/2 CHF exacrebation and pulmonary edema. He has improved significantly with diuresis. BNP is elevated and significant LE edema is present. Pt has been afebrile though he does have a low grade WBC#. procal was neg on arrival. At this point in time respiratory issues felt to be related more to CHF. Cont abx for 48hrs and if cx neg will DC abx. Pleural Effusion- present bilaterally , will eval for poss thoracentesis Renal HyperK- kayexolate x1 JOSE MARIA v CKD- baseline appears to be around 1.9 to 2 and currently at 2.7. unclear if this is new baseline or 2/2 CHF exacerbation - monitor i/os - avoid nephrotoxins GI stable Endo DM- A1C within parameters - SSI Heme Leukocytosis- reactive vs 2/2 underlying inflammatory process Anemia- no active bleeding noted, there has been a drop from baseline of 10 noted in September. iron panel suggestive of chronic dz and iron def ID Osteo- Pt has a recent amputation of his R 1st toe and current xray shows ongoing cortical bone destruction. will obtain MRI for further eval, may need ID case d/w ICU team labs, imaging, records reviewed ~38min required for eval, exam, review, intervention, discussion and formulation of plan for this acutely ill pt Provider Notation Provider Notation: Although this document has been carefully reviewed, there may still be some phonetic and other typographical errors. These errors are purely grammatical due to imperfections in the software program and should not be construed in any way to compromise the substance of the patient's medical care during this visit. Thank you for the opportunity and privilege in assisting you with this patient's care and management.
--- NOTE | 2024-01-26 10:48 | PD.SURPROG ---
Documentation for date of: 01/26/24 Subjective Subjective Brief History: 63-year-old male with history of diabetes, hypertension and hyperlipidemia was admitted with shortness of breath and lower extremity edema secondary to heart failure. He had undergone transmetatarsal amputation of right first toe on October 07, 2023. The wound was initially managed with wound VAC and subsequently with wet-to-dry dressings. Narrative: Patient is seen and examined. He has shortness of breath Exam Vital Signs Temp Pulse Resp BP Pulse Ox O2 Del Method O2 Flow Rate 99.0 F 95 25 H 171/92 H 96 Oxy Mask 5 01/26/24 08:00 01/26/24 09:02 01/26/24 09:02 01/26/24 08:00 01/26/24 09:02 01/26/24 08:00 01/26/24 08:00 FiO2 40 01/26/24 01:48 Routine Extremities Exam Comments: Significant edema of lower extremities. Right foot amputation site healing well. There is no external evidence of infection Assessment & Plan Assessment Additional comments: Chronic osteomyelitis of right foot. Plan There are no indications for surgical intervention at this time. Continue antibiotic treatment for chronic osteomyelitis.
--- NOTE | 2024-01-26 11:39 | PD.RESEVENT ---
Documentation for date of: 01/26/24 Event Note Event Note: 63-year-old male with past medical history of HFpEF (EF 60 to 65%) DM2, hyperlipidemia, hypertension, prior osteomyelitis of right first toe s/p amputation was admitted to the hospital on 01/24/2024 for acute hypoxic respiratory failure secondary to acute decompensated heart failure exacerbation and sepsis likely secondary to pneumonia versus osteomyelitis. On the same day of admission patient was upgraded to the ICU for monitoring due to the possibility of requiring intubation given increased work of breathing and not tolerating BiPAP. He was placed on BiPAP but was not compliant with his BiPAP and he continues to desaturate into the mid 80s. He did a repeat chest x-ray which showed worsening pleural effusion. Patient is on Bumex 2 mg twice daily and today he is off the BiPAP. Currently patient is on OxyMask on 5 L and saturating well. He will get bilateral thoracentesis for his pleural effusions today and general surgery did not recommend any surgery at this time. Patient is hemodynamically stable to be downgraded back to the medical floors tomorrow 01/27/2024 and assigned to team A. Case disclosed with Attending Dr. Romano and my senior Dr. Nielson PGY3 Henri Perkins PGY1
--- NOTE | 2024-01-26 12:02 | ESPR_ITS ---
<Statement entered by Eliza Alamo MD - 01/27/24 07:34> Patient was seen and examined by me personally. I have directly supervised and reviewed the above documentation by the team resident and agree with its findings with any exceptions or additional findings as below. Plan of care was discussed with the attending, Dr. Enrique. Patient today had improved respiratory status, saturating on 5L OxyMask, comfortably sitting up on the bedside, eating breakfast and lunch without difficulties. Home carvedilol was restarted due to elevated BP. Due to CXR findings there was high suspicion of bilateral pleural effusions which was assessed by US at the bedside. Left-sided thoracentesis was completed with withdrawal of 525 ml straw-colored fluid, patient tolerated procedure well. Suspect fluid overload secondary to CHF exacerbation, less suspicion for pneumonia given no fevers, normal procalcitonin, chronic leukocytosis likely secondary to chronic osteomyelitis. Dr. Serna examined patient and determined no need for surgical debridement or procedures at this time. Patient has superficial ulcer at the site of right first toe amputation, clean reddish base, no purulence. orthotic fitter saw patient and will be following. Pending MRSA screen and blood cultures post-48 hours, if negative will discontinue vancomycin and cefepime respectively. Continue with diuresis. Patient is stable for downgrade to Telemetry floor starting 01/26. Eliza Alamo, PGY-2 Documentation for date of: 01/26/24 Subjective Subjective Interval history: Colton Sandoval is a 63-year-old male with a past medical history of type 2 diabetes mellitus, hyperlipidemia, and hypertension who presents with shortness of breath and chest discomfort. Symptoms started approximately a week ago but acutely worsened overnight to the point where he would get short of breath after just a few steps, prompting him to come to the ED. Endorses orthopnea, PND, and bilateral lower extremity edema. Regarding his chest pain, describes it as substernal, pressure-like, worse with activity, and does not subside with rest. Not on home oxygen. Previously admitted and treated for osteomyelitis of right hallux on 09/2023 and underwent transmetatarsal amputation discharged with 7-day course of doxycycline that patient completed. 01/26/2024 Night: patient on 01/25/24 received Lasix 120 mg and 2 mg of Bumex with minimal urine output and continue to have difficulty breathing . He was initially placed on BiPAP which showed an ABG PaO2 of 53 after approximately 30 minutes on the BiPAP with 40% FiO2. Patient did remove his BiPAP and was on a nasal cannula he continued to desat on to the mid 80s he removed his nasal cannula and on room air he was saturating in the low 70s. I personally convince the patient to place his BiPAP again. We got an additional chest x-ray which shows worsening opacities consistent with pleural effusions worsening. Patient remained tachypneic pulling low volumes on the BiPAP. After consulting with my attending it was best option to transfer the patient to the intensive care unit for closer monitoring for potential for intubation and increased work of breathing. Other vitals were within normal limits. 01/26/2024 Morning: Patient was seen and examined by the bedside. No acute overnight events. Patient reports feeling better, denies chest pain, cough. He is hemodynamically stable, saturates well on 3 L oxygen mask. Home blood pressure medications were resumed. 01/25 Bedside US showed plethoric IVC and bilateral pleural effusion, more on the left side. Left sided US guided was done today pleurocentesis 01/25, 525 ml of fluid was taken out. Pleural fluid was sent for analysis. MRSA screen, blood cultures are pending, patient continues to receive antibiotics and diuretics. Dr. Serna saw the patient, at this moment operation is not indicated. Patient is going to be downgraded to the floors, medical team to assume care starting 01/26. Exam Vital Signs Temp Pulse Resp BP Pulse Ox O2 Del Method O2 Flow Rate 98.9 F 96 21 H 126/91 H 97 Oxy Mask 5 01/26/24 11:01/26/24 11:01/26/24 11:01/26/24 11:01/26/24 11:01/26/24 11:01/26/24 11:00 FiO2 40 01/26/24 01:48 Narrative Exam Gen: Well-developed and well-nourished. Saturates well on the oxymask. HEENT: NCAT, PERRLA, EOMI, MMM, anicteric conjunctivae. CVS: normal S1 and S2. RRR. No M/R/G. Resp: Diffuse rhonchi bilaterally. Abd: soft, non-tender, non-distended. BS+ in all 4 quadrants. MSK: Good ROM in BUE & BLE. No edema. Multiple excoriations on the lower extremities, back. Multiple papular lesions on the back. Neuro: CN II-XII grossly intact. Strength 5/5 in BUE & BLE. Alert and oriented x3. Psych: appropriate mood and affect. Objective Labs 01/26/24 05:15 01/26/24 05:15 Labs: Laboratory Results - last 24 hr 01/25/24 01/25/24 01/26/24 19:50 20:13 03:33 WBC RBC Hgb Hct MCV MCH MCHC RDW Std Deviation Plt Count Neut % (Auto) Lymph % (Auto) [place] % (Auto) Eos % (Auto) Baso % (Auto) Neut # (Auto) Lymph # (Auto) [place] # (Auto) Eos # (Auto) Baso # (Auto) Immature Gran # (Auto) Absolute Nucleated RBC Immature Gran % Nucleated RBC % Puncture Site Cancelled Right Radial Right Brachial ABG pH Cancelled 7.36 7.36 ABG pCO2 Cancelled 39 39 ABG pO2 Cancelled 53 L* 77 L D ABG HCO3 Cancelled 22 22 ABG O2 Saturation Cancelled 87 L 96 ABG Base Excess Cancelled -3 -3 Oxygen Liter Flow Cancelled FiO2 Cancelled 40 40 Sodium Potassium Chloride Carbon Dioxide Anion Gap BUN Creatinine Estim Creat Clear Calc eGFR BUN/Creatinine Ratio Glucose Calculated Osmolality Calcium Phosphorus Magnesium Iron TIBC Iron Saturation Unsat Iron Binding Ferritin Vitamin B12 Folate Random Vancomycin 01/26/24 05:15 WBC 14.2 H RBC 2.92 L Hgb 7.4 L Hct 24.5 L MCV 84 MCH 25.3 MCHC 30.2 L RDW Std Deviation 44.9 H Plt Count 401 Neut % (Auto) 79 Lymph % (Auto) 10 [place] % (Auto) 7 Eos % (Auto) 3 Baso % (Auto) 0 Neut # (Auto) 11.2 H Lymph # (Auto) 1.4 [place] # (Auto) 1.0 H Eos # (Auto) 0.4 Baso # (Auto) 0.1 Immature Gran # (Auto) 0.12 H Absolute Nucleated RBC 0.00 Immature Gran % 1 H Nucleated RBC % 0 Puncture Site ABG pH ABG pCO2 ABG pO2 ABG HCO3 ABG O2 Saturation ABG Base Excess Oxygen Liter Flow FiO2 Sodium 138 Potassium 5.2 H D Chloride 109 H Carbon Dioxide 20.5 Anion Gap 9 BUN 60 H Creatinine 2.7 H Estim Creat Clear Calc 30.7 L eGFR 26 L BUN/Creatinine Ratio 22 H Glucose 135 H D Calculated Osmolality 294 Calcium 8.6 Phosphorus 4.7 Magnesium 2.3 Iron 18 L TIBC 243 L Iron Saturation 7 L Unsat Iron Binding 225 Ferritin 132 Vitamin B12 342 Folate 9.20 Random Vancomycin 9.7 ABG Interpretation ABG results: 01/25/24 01/25/24 01/26/24 19:50 20:13 03:33 ABG pH Cancelled 7.36 7.36 ABG pCO2 Cancelled 39 39 ABG pO2 Cancelled 53 L* 77 L D ABG HCO3 Cancelled 22 22 ABG O2 Saturation Cancelled 87 L 96 ABG Base Excess Cancelled -3 -3 Quality Measures Quality Measures none Assessment & Plan Assessment Current Active Medications: Generic Name Dose Route Start Last Admin Trade Name Freq PRN Reason Stop Dose Admin Acetaminophen 650 mg 01/24/24 19:40 Acetaminophen 325 Mg Tablet PO 02/23/24 19:39 Q6H PRN Fever >101.5 Amlodipine Besylate 10 mg 01/25/24 09:00 01/26/24 07:50 Amlodipine Besylate 5 Mg Tablet PO 02/24/24 08:59 10 mg QDAY ANAMARIA Administration Bumetanide 2 mg 01/26/24 09:00 01/26/24 07:55 Bumetanide Inj 0.25 Mg/Ml Vial 4 Ml IVP 02/25/24 08:59 2 mg BID ANAMARIA Administration Carvedilol 6.25 mg 01/26/24 08:00 01/26/24 07:49 Carvedilol 3.125 Mg Tablet PO 02/25/24 07:59 6.25 mg BIDWM ANAMARIA Administration Dextrose 25 ml 01/24/24 19:42 Dextrose 50%-Water Inj 50 Ml Syringe IV 02/23/24 19:41 Q15MIN PRN BG 50-70 responsive npo pt Dextrose 50 ml 01/24/24 19:42 Dextrose 50%-Water Inj 50 Ml Syringe IV 02/23/24 19:41 Q15MIN PRN BG <50 OR BG <70 & pt unresponsive Glucagon 1 mg 01/24/24 19:42 Glucagon Inj 1 Mg Vial IM Q15MIN PRN BG <70, and no IV access Heparin Sodium (Porcine) 5,000 unit 01/24/24 22:00 01/26/24 05:17 Heparin Sod Inj 5000 Unit/Ml Vial SC 02/07/24 21:59 5,000 unit Q8HR ANAMARIA Administration Cefepime HCl 1 gm/ Sodium 50 mls @ 100 mls/hr 01/25/24 11:15 01/26/24 09:14 Chloride IV 02/01/24 11:14 Infused QDAY ANAMARIA Infusion Vancomycin/Sodium Chloride 200 mls @ 120 mls/hr 01/26/24 10:00 01/26/24 09:09 Vancomycin/Ns 1 Gm Ivpb IV 02/02/24 09:59 120 mls/hr QDAY@1000 ANAMARIA Administration Insulin Glargine 10 unit 01/25/24 09:00 01/26/24 07:52 Insulin Glargine (Lantus) 5 Unit/0.05 Ml (Per 5 Units) SC 02/24/24 08:59 10 unit QDAY ANAMARIA Administration Insulin Human Regular 0 unit 01/24/24 21:00 01/26/24 11:14 Insulin Hum Regular 1 Unit/0.01 Ml (Per Unit) SC 02/23/24 20:59 1 unit ACHS ANAMARIA Administration Protocol Ipratropium [place] 0.5 mg 01/24/24 21:01 01/26/24 00:42 Ipratropium Rt 0.5 Mg/ 2.5 Ml Nebu INH 02/23/24 21:00 0.5 mg Q6HRRT PRN Administration SHORTNESS OF BREATH OR WHEEZE Levalbuterol HCl 1.25 mg 01/25/24 01:00 01/26/24 06:13 Levalbuterol Rt 1.25 Mg/0.5 Ml Nebu INH 02/24/24 00:59 1.25 mg Q6HRRT ANAMARIA Administration Ondansetron HCl 4 mg 01/25/24 05:02 01/25/24 05:11 Ondansetron Inj 2 Mg/Ml Inj 2 Ml IV 02/24/24 05:01 4 mg Q6HR PRN Administration NAUSEA OR VOMITING Protocol Pharmacy Consult 1 each 01/25/24 11:15 Vancomycin Pharmacy To Dose 1 Each Each IV 02/24/24 11:14 QDAY PRN CONSULT Sodium Chloride 3 ml 01/24/24 21:01 01/26/24 06:13 Sodium Chloride Rt Silv[place] 0.9% 3 Ml Nebu INH 02/23/24 21:00 3 ml Q6HRRT PRN Administration SOLN Plan The patient is 63-year-old male with past medical history of HFpEF (EF 60 to 65%) DM2, hyperlipidemia, hypertension, prior osteomyelitis of right first toe s/p amputation was admitted to the hospital on 01/24/2024 for acute hypoxic respiratory failure secondary to acute decompensated heart failure exacerbation and sepsis likely secondary to pneumonia versus osteomyelitis. On the same day of admission patient was upgraded to the ICU for monitoring due to the possibility of requiring intubation given increased work of breathing and not tolerating BiPAP. 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 No valvular disease noted. POCUS at bedside showed plethoric IVC with notable hepatic venous congestion Plan: -Repeat echo to reassess EF -Continue diuresis, seems more responsive to Bumex -Fluid restriction -Cont home meds (amlodipine/statin) Pulm: #Acute hypoxic respiratory failure likely secondary most likely due to fluid overload due to HFpEF exacerbation #ANGEL pleural effusions Etiology likely secondary to heart failure. dx: Chest x-ray showing significant opacity consistent with pleural effusions predominantly in the right side POCUS at bedside showed [place] B lines >5 lines Pro-ntaan is negative. Will wait for the blood cultures, if negative, will discontinue antibiotics. Plan: -Continue oxygen, wean off as tolerated -DuoNebs -Diurese -Thoracenthesis was done 01/25 on the left side -Repeat ABG GI: No active problems Renal: #JOSE MARIA on CKD #Hyperkalemia Etiology: prerenal in the setting possible cardiorenal type 1 (decreased effective volume) in the setting of fluid overload 01/24 Cr 2.7, 01/25 Cr 2.7, K+ 01/25 was 5.2, patient was kayexalate 30g once. Plan: -Monitor UOP -Bumex 2 mg twice daily - Kayaexalate 30g once -F/U urine electrolytes Endo: #T2DM (A1c 6.2%) Plan: -Glargine 10 units SC -ISS protocol Heme: #Leukocytosis- likely reactive #Normocytic anemia- etiology unknown Leukocytosis seems likely either reactive versus a infectious process due to possible pneumonia. Regards to his normocytic anemia likely either secondary to iron deficiency anemia versus renal disease. Plan: -Iron panel and ferritin -Vit b12 and folate levels normal -F/U CBC ID: #Sepsis d/t CAP vs OM Patient chest x-ray showed bilateral opacities and consolidations with pleural effusions. Right foot x-ray showed osteomyelitis in the amputated first metatarsal and second metatarsal joint. Patient continues to receive antibiotics. Dr Serna was consulted, no need to operate at this time. Plan: -Cefepime 01/25/2024 -current -F/U cx Skin/MSK: #Scabies Patient stated that multiple residents in his rehab center were diagnosed with scabies. Patient has multiple excoriations on his entire back and bilateral upper extremities. Plan: ?Permethrin x 1 ?Contact precautions ?Will continue to monitor ICU Health maintenance: Mechanical ventilation: BiPAP Sedation: None FEN: Cardiac, with fluid restriction 1500ml DVT ppx: Heparin sq GI ppx: None [place]: None IV lines: 2 IVP Central line: None Arterial line: None Code status: FULL code Dispo: Downgraded to floors Plan of care discussed with attending Dr. Enrique, PGY-[address] Alamo and PGY-[address] Mistry. Kalli Wong MD, PGY 1.
--- NOTE | 2024-01-26 13:05 | XR_ITS ---
Examination: AP chest single view Technique : AP portable sitting chest single view Exam date and time: January 26, 2024 1323 hours Comparison January 25, 2024 INDICATIONS: Injury to the chest, chest pain FINDINGS: Extensive bilateral opacity consistent with pneumonia especially right base Mild associated heart failure No pneumothorax Prominent osteopenia IMPRESSION: Bilateral pneumonia prominent at the right lung base Mild associated heart failure No pneumothorax
[2024-01-26 13:39] LABS: Amylase 33 U/L (30-118); LDH (Lactate Dehydrogenase) 315 U/L (120-246)
[2024-01-26 13:47] LABS: Pleural Fluid WBC 196 /cmm
[2024-01-26 13:49] LABS: Pleural Fluid Appearance Hazy; Pleural Fluid Color Yellow; Pleural Fluid Mononuclear 96 %; Pleural Fluid Polynuclear 4 %; Pleural Fluid RBC 2000 /cmm
[2024-01-26 14:25] LABS: Amylase,Pleural Fluid < 20 IU/L; Glucose,Pleural Fluid 145 mg/dL; LDH,Pleural Fluid 100 IU/L; Protein Total,Pleural Fluid < 2.0 g/dL
--- NOTE | 2024-01-26 14:54 | PD.RESPROC ---
Procedures Procedure Date / Time 01/26/24 1454 Thoracentesis Indication(s): symptomatic Pleural Effusion Informed consent obtained from: patient Time out done, and the following verified: correct patient, side and site, procedure and patient position Ultrasound used: Yes Procedure location: lt. post pleual space Amount pleural fluid removed (ml): 525 EBL(ml): 1 Procedure comment: PROCEDURE SUMMARY: Informed consent was obtained from the patient with consent form signed and placed in the chart. Bedside US was performed which identified an appropriate pocket sufficient for pleural drainage on the left side. The appropriate side was confirmed and marked with syringe suction. Alcohol-based it network architect was used, surgical hair net was worn, and mask was worn. Sterile gown and sterile gloves were donned in sterile technique and kept on throughout the procedure. The patient was prepped and draped in a sterile manner using chlorhexidine scrub. 1% lidocaine was used to anesthesize the skin, subcutaneous tissue, superior aspect of the rib periosteum and parietal pleura. A finder needle was then introduced over the superior aspect of the rib to locate the pleural fluid; straw-colored pleural fluid was aspirated at a depth of approximately 1 cm. The [id number] needle was then introduced through the skin incision into the pleural space using negative aspiration pressure. The thoracentesis catheter was then threaded without difficulty. 50 ml of translucent straw colored fluid was removed without difficulty and part was sent for pleural fluid studies. Pleural fluid was subsequently drained into an evacuation suction bottle with the total amount measuring 525 ml. The catheter was then removed with pressure held to the site until no further bleeding or leakage was noted. No immediate complications were noted during the procedure and the patient tolerated the procedure very well. A post-procedure chest X-ray showed improvement of the left costophrenic angle and no pneumothorax. The fluid will be sent for studies including LDH, amylase, glucose, protein, cell count, culture, anaerobic culture, and gram stain. Estimated blood loss is 1 mL. Procedure completed with the supervising attending film drying machine operator, Dr. Enrique. Eliza Alamo, PGY-2 Attending note pt seen and examined with resident. Agree with above. I was present for and performed the major portions of this procedure. postop CXR clear
[2024-01-26] MEDS: PERMETHRIN CREME RINSE 60 ML BTL TOP (15:44)
--- NOTE | 2024-01-26 16:17 | PC.SS ---
Update: Patient has been downgraded to Tele from the ICU.
[2024-01-27] VITALS (18 sets, daily range): BP systolic 142–174; BP diastolic 66–92; PULSE 72–86; RESP 17–26; TEMP 36.1–37; O2SAT 93–100; BMI 34.9
--- NOTE | 2024-01-27 | XR_ITS ---
Examination: MRI right foot, without contrast Date and time of exam: January 27, 2024 1810 hours Comparison right foot films January 24, 2024 INDICATIONS: Status post right foot amputation September 2023, swelling redness and nonhealing wound mid plantar surface of the foot Technique: Multiple axial sagittal and coronal images of the right have been obtained with the Siemens high-resolution 1.5 Sujata MRI scanner. Images obtained include T2-weighted fat-suppressed sagittal sections, TR 3500, TE 46, T2 weighted coronal fat suppressed images, TR 3050, TE 84, T2-weighted transverse fat suppressed images, TR 3260, TE 63, proton density transverse images, TR 4720 TE 46, and T1 weighted coronal images, TR 560, TE 13. Findings: Severe edema surrounding the entire foot Extensive soft tissue infection, phlegmonous mass surrounding the distal first and second metatarsals Cortical bone destruction at the amputated end of the first metatarsal Marked cortical bone destruction involving the distal shaft of the second metatarsal and the entire proximal phalanx second digit Cortical bone destruction involving the distal most third metatarsal No fluid-filled soft tissue abscess IMPRESSION: Osteomyelitis amputated end of the distal first metatarsal Prominent osteomyelitis distal shaft second metatarsal and entire proximal phalanx second digit Osteomyelitis involving the distalmost third metatarsal
[2024-01-27] MEDS: SODIUM CHLORIDE RT SOL 0.9% 3 ML NEBU INH ×4 (00:13→18:58)
[2024-01-27] MEDS: LEVALBUTEROL RT 1.25 MG/0.5 ML NEBU INH ×4 (00:13→18:57)
--- NOTE | 2024-01-27 03:16 | PC.NURSE ---
scheduled [facility] downtime 01/27/24 at 0200 to 0309.
[2024-01-27] MEDS: HEPARIN SOD INJ 5000 UNIT/ML VIAL SC ×3 (05:31→21:22)
[2024-01-27 08:21] LABS: Basophils # (Auto) 0.1 Thou/mm3 (0.0-0.2); Basophils % (Auto) 0 % (0-2.5); Eosinophils # (Auto) 0.6 Thou/mm3 (0.0-0.5); Eosinophils % (Auto) 5 % (0-10); Hematocrit 24.8 % (41.0-53.0); Immature Granulocytes % (Auto) 1 % (0-0); Immature Granulocytes Auto 0.07 Thou/mm3 (0.00-0.00); Lymphocytes # (Auto) 1.8 Thou/mm3 (1.0-4.8); Lymphocytes % (Auto) 15 % (10-50); Mean Corpuscular HGB Conc 30.2 g/dl (31.0-37.0); Mean Corpuscular Hemoglobin 25.6 pg (25.0-35.0); Mean Corpuscular Volume 85 fL (80-100); Monocytes # (Auto) 0.9 Thou/mm3 (0.0-0.8); Monocytes % (Auto) 7 % (0-12); Neutrophils # (Auto) 8.8 Thou/mm3 (1.8-7.7); Neutrophils % (Auto) 72 % (37-80); Nucleated Red Blood Cell % 0 /100 WBC (0); Platelet Count 394 Thou/mm3 (140-440); RDW Standard Deviation 45.3 fL (35.1-43.9); Red Blood Count 2.93 Miln/mm3 (4.50-5.90); White Blood Count 12.2 Thou/mm3 (3.8-10.6)
[2024-01-27] MEDS: CEFEPIME INJ 1 GM in SODIUM CHLORIDE 0.9% (P) 50 ML IV (08:28)
[2024-01-27] MEDS: BUMETANIDE INJ 0.25 MG/ML VIAL 4 ML 2 MG IVP ×2 (08:30→21:21)
[2024-01-27] MEDS: amLODIPine BESYLATE 5 MG TABLET 10 MG PO (08:31)
[2024-01-27] MEDS: carVEDILOL 3.125 MG TABLET 6.25 MG PO ×2 (08:31→16:55)
[2024-01-27 08:38] LABS: Anion Gap 9 (7-16); BUN/Creatinine Ratio 23 Ratio (12-20); Blood Urea Nitrogen 61 mg/dL (9-23); Calcium 8.7 mg/dL (8.3-10.6); Carbon Dioxide 21.6 mMol/L (20.0-31.0); Chloride 110 mMol/L (98-107); Creatinine (Component) 2.6 mg/dL (0.6-1.3); Estimated Creatinine Clearance 31.9 mL/min (>60); Glucose 88 mg/dL (74-106); Magnesium 2.3 mg/dL (1.6-2.6); Osmolality,Calculated 297 (275-295); Phosphorous 5.2 mg/dL (2.4-5.1); Potassium 4.8 mMol/L (3.4-5.1); Sodium 141 mMol/L (136-145); eGFR 27 See Note
[2024-01-27] MEDS: INSULIN GLARGINE (Lantus) 5 UNIT/0.05 ML (PER 5 UNITS) 10 UNIT SC (08:42)
--- NOTE | 2024-01-27 08:53 | ESPR_ITS ---
<Statement entered by Angel Nielson DO - 01/27/24 17:28> Senior attestation: Patient was examined and case was reviewed with team including attending physician. Note reviewed, I agree with most of its contents and agree with the patient's care. Vancomycin discontinued, will continue diuresis and consult cardiology team. Angel Nielson DO PGY-3 <Statement entered by Jc Barrera MD - 01/27/24 14:54> Senior Resident Attestation: I supervised/discussed management plan with purchasing intern physician Dr. Kim, and was involved in the care of this patient. I personally saw and examined the patient and discussed the assessment and plan with the entire medicine team, including my attending. I agree with the assessment and plan as documented. Patient had thoracocentesis yesterday with 500 cc of transudative fluid removal. Will continue Bumex 2 mg twice daily. Vancomycin was discontinued, will continue with cefepime only. Cardiology was consulted. Patient's care was discussed with attending physician, Dr. Romano. Jc Barrera MD PGY-2. Documentation for date of: 01/27/24 Subjective Subjective Interval history: Patient was seen at bedside this morning. No overnight events. Patient was downgraded back to the medical floors from ICU today after he had a successful thoracentesis of the left side. Patient's echo showed an EF of 50 to 55% and repeat chest x-ray showed extensive bilateral pneumonia. Patient's oxygen requirement has improved and right now he is on nasal cannula at 5 L and saturating well. Patient's WBCs are downtrending and given patient's likely acute decompensated heart failure exacerbation with a drop in ejection fraction when compared to 4 months ago a cardiology consult was placed. No other complaints at this time. Exam Vital Signs Temp Pulse Resp BP Pulse Ox O2 Del Method O2 Flow Rate 97.8 F 84 18 157/82 H 100 Nasal Cannula 4 01/27/24 04:49 01/27/24 08:31 01/27/24 06:53 01/27/24 08:31 01/27/24 06:53 01/26/24 20:00 01/27/24 06:53 FiO2 40 01/26/24 01:48 Narrative Exam General: A/O x3, disheveled Eyes: PERRL, EOMI. Anicteric, vision grossly intact. Ears: No ear pain, no ear discharge, Hearing grossly intact. Nose: No nasal discharge. Mouth/Throat: Dry mucous membranes, no redness, no lesions. Neck: Short neck, non-tender, no cervical lymphadenopathy. Lungs: Decreased breath sounds in ANGEL lower lobes great on the right side, No accessory muscle use. Cardio: Normal S1/S2, regular rhythm, no murmurs, no JVD Abdomen: Soft, non-tender, no palpable masses, peristalsis present, no guarding or rebound. Extremities: Symmetrical, no significant deformities, 4+ peripheral edema , non-tender, peripheral pulses presents. Edema in lower back 1+ appreciated, R first toe amputation with ulcer-like wound, clean dressing over site of thoracentesis. Skin: No rashes, no lesions, warm to touch. Multiple excoriations in entire back and UE. Neuro: No focal neurological deficits. motor and sensory intact Psych: Cooperative, appropriate mood and effect. Objective Labs 01/27/24 07:47 01/27/24 07:47 Labs: Laboratory Results - last 24 hr 01/26/24 01/26/24 01/27/24 05:15 13:14 07:47 Sodium 141 Potassium 4.8 Chloride 110 H Carbon Dioxide 21.6 Anion Gap 9 BUN 61 H Creatinine 2.6 H Estim Creat Clear Calc 31.9 L eGFR 27 L BUN/Creatinine Ratio 23 H Glucose 88 Calculated Osmolality 297 H Calcium 8.7 Phosphorus 5.2 H Magnesium 2.3 Lactate Dehydrogenase 315 H Amylase 33 Pleural Color Yellow Pleural Appearance Hazy Pleural WBC 196 Pleural RBC 2000 Pleural Polynuclear WBC 4 Pleural Mononuclear WBC 96 Pleural Total Protein < 2.0 Pleural LDH 100 Pleural Glucose 145 Pleural Amylase < 20 ABG Interpretation ABG results: 01/25/24 01/25/24 01/26/24 19:50 20:13 03:33 ABG pH Cancelled 7.36 7.36 ABG pCO2 Cancelled 39 39 ABG pO2 Cancelled 53 L* 77 L D ABG HCO3 Cancelled 22 22 ABG O2 Saturation Cancelled 87 L 96 ABG Base Excess Cancelled -3 -3 Quality Measures Quality Measures none Assessment & Plan Assessment Current Active Medications: Generic Name Dose Route Start Last Admin Trade Name Freq PRN Reason Stop Dose Admin Acetaminophen 650 mg 01/24/24 19:40 Acetaminophen 325 Mg Tablet PO 02/23/24 19:39 Q6H PRN Fever >101.5 Amlodipine Besylate 10 mg 01/25/24 09:00 01/27/24 08:31 Amlodipine Besylate 5 Mg Tablet PO 02/24/24 08:59 10 mg QDAY ANAMARIA Administration Bumetanide 2 mg 01/26/24 09:00 01/27/24 08:30 Bumetanide Inj 0.25 Mg/Ml Vial 4 Ml IVP 02/25/24 08:59 2 mg BID ANAMARIA Administration Carvedilol 6.25 mg 01/26/24 08:00 01/27/24 08:31 Carvedilol 3.125 Mg Tablet PO 02/25/24 07:59 6.25 mg BIDWM ANAMARIA Administration Dextrose 25 ml 01/24/24 19:42 Dextrose 50%-Water Inj 50 Ml Syringe IV 02/23/24 19:41 Q15MIN PRN BG 50-70 responsive npo pt Dextrose 50 ml 01/24/24 19:42 Dextrose 50%-Water Inj 50 Ml Syringe IV 02/23/24 19:41 Q15MIN PRN BG <50 OR BG <70 & pt unresponsive Glucagon 1 mg 01/24/24 19:42 Glucagon Inj 1 Mg Vial IM Q15MIN PRN BG <70, and no IV access Heparin Sodium (Porcine) 5,000 unit 01/24/24 22:00 01/27/24 05:31 Heparin Sod Inj 5000 Unit/Ml Vial SC 02/07/24 21:59 5,000 unit Q8HR ANAMARIA Administration Cefepime HCl 1 gm/ Sodium 50 mls @ 100 mls/hr 01/25/24 11:15 01/27/24 08:28 Chloride IV 02/01/24 11:14 100 mls/hr QDAY ANAMARIA Administration Vancomycin/Sodium Chloride 200 mls @ 120 mls/hr 01/26/24 10:00 01/26/24 09:09 Vancomycin/Ns 1 Gm Ivpb IV 02/02/24 09:59 120 mls/hr QDAY@1000 ANAMARIA Administration Insulin Glargine 10 unit 01/25/24 09:00 01/27/24 08:42 Insulin Glargine (Lantus) 5 Unit/0.05 Ml (Per 5 Units) SC 02/24/24 08:59 10 unit QDAY ANAMARIA Administration Insulin Human Regular 0 unit 01/24/24 21:00 01/27/24 07:39 Insulin Hum Regular 1 Unit/0.01 Ml (Per Unit) SC 02/23/24 20:59 Not Given ACHS ANAMARIA Protocol Ipratropium Webster 0.5 mg 01/24/24 21:01 01/26/24 00:42 Ipratropium Rt 0.5 Mg/ 2.5 Ml Nebu INH 02/23/24 21:00 0.5 mg Q6HRRT PRN Administration SHORTNESS OF BREATH OR WHEEZE Levalbuterol HCl 1.25 mg 01/25/24 01:00 01/27/24 06:51 Levalbuterol Rt 1.25 Mg/0.5 Ml Nebu INH 02/24/24 00:59 1.25 mg Q6HRRT ANAMARIA Administration Ondansetron HCl 4 mg 01/25/24 05:02 01/25/24 05:11 Ondansetron Inj 2 Mg/Ml Inj 2 Ml IV 02/24/24 05:01 4 mg Q6HR PRN Administration NAUSEA OR VOMITING Protocol Pharmacy Consult 1 each 01/25/24 11:15 Vancomycin Pharmacy To Dose 1 Each Each IV 02/24/24 11:14 QDAY PRN CONSULT Sodium Chloride 3 ml 01/24/24 21:01 01/27/24 06:51 Sodium Chloride Rt Silvina 0.9% 3 Ml Nebu INH 02/23/24 21:00 3 ml Q6HRRT PRN Administration SOLN Plan 63-year-old male with past medical history of HFpEF (EF 50 to 55%) DM2, hyperlipidemia, hypertension, prior osteomyelitis of right first toe s/p amputation was admitted to the hospital on 01/24/2024 for acute hypoxic respiratory failure secondary to acute decompensated heart failure exacerbation and sepsis likely secondary to pneumonia versus osteomyelitis. #Acute decompensated heart failure exacerbation #HFpEF (EF 50 to 55% 01/2024) #Acute hypoxic respiratory failure #Bilateral pleural effusions ?Patient came in with shortness of breath, bilateral lower extremity edema, and orthopnea ?Patient's last echo on 09/2023 showed an ejection fraction of 60 to 65% ?Chest x-ray 01/24/24 showed moderate heart failure ? BNP 671 -Echo showed EF 50-55% -Pleural fluid was transudative using lights criteria, most likely due to HF exacerbation. -thoracentesis L side on 01/26/2024 Plan: ?Continue IV Bumex 2mg twice daily -Continue Carvedilol 6.25mg BID ?Strict CHAR's ? Fluid restrictions 1500 mL daily ? Daily weights ? Keep potassium above 4 and magnesium above 2 -Cardiology consulted (Dr. Soriano), appreciate recommendations ?Will continue to monitor #Sepsis likely secondary to pneumonia versus osteomyelitis #Pneumonia #Osteomyelitis ?Initially patient met SIRS criteria 2 out of 4 with leukocytosis and tachypnea ?Chest x-ray showed bilateral pneumonia and pleural effusions -CXR 01/27/2024 showed extensive ANGEL PNA ?Right foot x-ray showed osteomyelitis in the amputated first metatarsal and second metatarsophalangeal joint ?WBC 12.2 ?Discontinue azithromycin and Rocephin Plan: ?Continue cefepime [01/25/2024?] -DC's vancomycin [01/25/2024?01/27/2024] ?Blood cultures ordered ?Breathing treatments as needed -Wound care ?Referral to physical therapy ?General Surgery consulted (Dr. Serna), recommended no surgery at the moment and to continue antibiotics #JOSE MARIA on CKD ?Patient has some underlying CKD since last year with GFR in the high 30s to 40s -Baseline Cr 1.9 and was 2.8 on admission -Likely prerenal given heart failure and volume overload status ?BUN 61 and creatinine 2.6 today Plan: ?Avoid nephrotoxic agents ? Renally dose medications -Diuresis with bumex 2mg BID ? Will continue to monitor #Scabies ? Patient stated that multiple residents in his rehab center were diagnosed with scabies. ?Patient has multiple excoriations on his entire back and bilateral upper extremities. Plan: ? Permethrin x 1 done on 01/26/2024 ? Contact precautions ?will continue to monitor #Normocytic normochromic anemia ?Patient has a Hx of normocytic anemia with Hgb 10.4 prior to admission - Hgb 7.5 Plan: ?Will transfuse if hemoglobin less than 7 ?Will continue to monitor #Hx of DM2 ?A1c 6.2 on 01/25/2024 Plan: ?ISS ? Accu-Cheks and hypoglycemia protocol ? Will continue to monitor #Hx of hyperlipidemia ?Triglycerides 227, cholesterol 148, LDL 86, HDL 17 on 10/05/2023 Plan: ?Restart atorvastatin 40 mg #Hx of HTN ?Continue amlodipine 10 mg daily Disposition: Patient seen in telemetry continuing Antibiotic for Sepsis, pending cardiology recommendations concerning HFpEF and pending decrease oxygen requirement Diet: carb consistent GI prophylaxis: not indicated DVT prophylaxis: Heparin sc Code: Full Case disclosed with Attending Dr. Romano and My senior Dr. Barrera PGY2 and Dr. Nielson PGY3. Henri Perkins PGY1 Attending Provider Attestation/Addendum I reviewed labs, imaging, EKG, home medications and prior available records. Face to face evaluation was performed by me. I have personally examined the patient and discussed assessment and plan with the IM team. I reviewed the resident note and agree with the plan with exceptions as below. Acute hypoxic respiratory failure: Likely in setting of CHF exacerbation. Got worse for which the patient was upgraded to the ICU for close monitoring. Now downgraded. Management as below. Wean off oxygen as tolerated. Sepsis secondary to pneumonia versus right foot osteomyelitis: Started vancomycin/cefepime. Follow-up cultures. Right foot osteomyelitis: Consulted surgery for possible debridement: Recommended no surgical intervention but antibiotics. Discontinued vancomycin as MRSA screening test is negative. Continue wound care. CHF exacerbation: In the setting of history of heart failure with preserved EF of 60 to 65%. Ordered repeat echocardiogram that showed preserved EF. Continue IV diuresis. Monitor I's and O's. Pleural effusion: Status post pleurocentesis that showed transudative fluid. Likely in the setting of CHF. Continue diuresis. Monitor I's and O's. JOSE MARIA on CKD: Likely cardiorenal in the setting of CHF versus new baseline CKD. Diuresis as above. Monitor kidney function. Avoid nephrotoxins. Renally dosed medications.
[2024-01-27 08:57] LABS: Hemoglobin 7.5 g/dL (13.5-16.0)
[2024-01-27] MEDS: VANCOMYCIN/NS 1 GM IVPB 200 ML IV (10:15)
--- NOTE | 2024-01-27 10:34 | PC.SS ---
Rounding: Pt receiving IV ABX
--- NOTE | 2024-01-27 10:39 | XR_ITS ---
Examination: AP chest single view Technique one AP portable upright chest single view Exam date and time: January 27, 2024 1055 hours Comparison January 26, 2024 INDICATIONS: Difficulty breathing this week. FINDINGS: Extensive bilateral pneumonia Prominent vascular congestion Mild enlargement cardiac contour IMPRESSION: Extensive bilateral pneumonia again noted Recommend ultrasound hemithoraces to best assess extent of bilateral pleural fluid
[2024-01-27] MEDS: INSULIN HUM REGULAR 1 UNIT/0.01 ML (PER UNIT) SC ×2 (11:48→21:21)
--- NOTE | 2024-01-27 14:04 | ESCONSULT_ITS ---
HPI Data of Consult Requesting Physician: Barrett Romano MD Admitting Provider: Randy Cruz MD Attending Provider: Barrett Romano MD Primary Care Provider: Physician No Primary/Family Consult Narrative History of present illness: RE: VALERIE BRUNSON : 1960 Date of Consultation: 01/27/2024 Location of this patient is 277 bed A REASON FOR CONSULTATION: Acute decompensated heart failure with preserved EF HISTORY OF PRESENT ILLNESS : Patient is a 63-year-old male with a past medical history significant for essential hypertension for more than 20 years, hyperlipidemia does not appear to be statin at home, insulin-dependent diabetes mellitus type 2 [6.2] more than 30 years and CKD stage 3 B. Does not have a primary care doctor. Patient presented to the ED on 01/23 with a chief complaint of SOB and chest discomfort for 1 week. His SOB acutely worsened the day of admission. Patient endorses SOB at rest which prevents him from even ambulate short distances. He also endorses lower extremity swollen of the same duration and 2 pillow orthopnea and PND. Patient denies any palpitations, dizziness, syncope or presyncope. 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 ED course: BP 175/85, HR 107, RR 24, O2 86% on room air -> 98% on 8 L oxy mask, afebrile WBC 15, Hgb 8.9, K 5.1, Cr 2.8 (baseline 2.0), glucose 242, BNP 671, troponin negative, Pro-Yusef WNL UA: 15 RBC, U tox opiate positive CXR showed vascular congestion, bilateral pleural effusions, and possible pneumonia. XR right foot showed osteo of amputated first metatarsal and second MTP joint In ED given DuoNebs x 2, ceftriaxone x 1, Lasix 40 mg IV x 1 Patient was admitted for acute respiratory failure with hypoxia secondary to decompensated heart failure with preserved ejection fraction. Initially patient was managed on floors and diuresed with Lasix 40 Mg IV daily. Patient subsequently developed worsening respiratory failure requiring BiPAP which patient was noncompliant with and this decision was made to upgrade to ICU level of care in the event patient needed intubation. Patient's parents 1 day in the ICU and his condition improved, at this time patient was also switched to Bumex 2 Mg IV twice daily. General surgery, Dr. Serna was also consulted for due to concern for infected right foot ulcer, however he deemed that there was no active infection and only a superficial wound. Source of sepsis unlikely to be due to foot ulcer, also foot x-ray did not show any signs of gas gangrene or active osteomyelitis. Patient was then subsequently downgraded back to the floors and diuresis continued with Bumex 2 mg IV twice daily. Of note yesterday patient had therapeutic/diagnostic thoracentesis of the left lung which drained approximately 600 mL straw-colored fluid. Pleural studies confirmed transudative picture. Currently patient is in moderate distress with SOB and abdominal breathing at rest and had an output of 1 L in the past 24 hours with a net fluid balance of - 145 cc. Cardiology was consulted for acute decompensated heart failure. Past medical history: As above Medication list: ? Carvedilol 6.25 mg p.o. twice daily ? Hydroxyzine 25 mg p.o. as needed ? Insulin Basaglar ? Hydrochlorothiazide 50 Mg p.o. daily ? Furosemide 20 Mg p.o. daily - Amlodipine 10mg po daily ?Empagliflozin/metformin ? 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 never smoked ETHO use: Quit 15 years ago, previoiusly a social drinker Illicit drug use: Denies Social History Note: Lives alone at rehab center, previously carried out all ADL independently and ambulates without a walker Family History: Mother - DM IMPRESSION: 1. Acute Decompensated heart failure with preserved EF RECOMMENDATION: Continue Diuresis with Bumex 2mg IV BID cc:: cc: Barrett Romano MD Review of Systems Review of Systems Narrative Review of Systems: GENERAL: Denies fever/chills or diaphoresis. HEENT: Denies headaches or visual changes. Denies discharge. Neuro: Denies unusual weakness or difficulty speaking. CARDIO: as above PULM: As above GI: Denies abdominal pain, N/V/C/D. Reports having BMs. URO: Denies buring/itching/pain/urinary changes. MSK/EXT/SKIN: Denies joint/skeletal/muschle pain, issues/changes in upper or lower extremities, itchiness, or superficial pain. PSYCH: Cooperative, pleasant mood & affect. The rest of the review of systems is otherwise negative. Exam Vital Signs Temp Pulse Resp BP Pulse Ox O2 Del Method O2 Flow Rate 98.6 F 77 22 H 157/82 H 98 Nasal Cannula 4 01/27/24 08:00 01/27/24 12:14 01/27/24 12:14 01/27/24 08:31 01/27/24 12:14 01/27/24 08:00 01/27/24 12:14 FiO2 40 01/26/24 01:48 Narrative Exam Constitutional Alert, oriented x 3 and in Moderate distress. On 5 L O2 via NC. Cannot speak full sentences due to SOB HEENT Vision grossly intact. Patent nares. Trachea midline Respiratory Chest normal on inspection and crackles from mid to lower lobes B/L. Bandage on left from thoracentesis noted Cardiovascular S1 and S2 audible, RRR. No murmurs carotid bruit. No gross JVD. Abdominal Soft,obese and non tender to palpation in all quadrants. BS + Genitourinary No bladder tenderness, no flank pain. Normal to palpation. No scrotal edema Musculoskeletal Extremities tone within normal limits. 3+ LE edema B/L. Bandage noted on R foot Neurological CN II - XII grossly intact. Extremity motor and sensation grossly intact. Skin Warm, dry and intact. No apparent lesions. Psychiatric Patient has good affect, is cooperative Results Labs 01/27/24 07:47 01/27/24 07:47 Labs: Short CBC 01/27/24 Range/Units 07:47 WBC 12.2 H (3.8-10.6) Thou/mm3 Hgb 7.5 L (13.5-16.0) g/dL Hct 24.8 L (41.0-53.0) % Plt Count 394 (140-440) Thou/mm3 BMP 01/27/24 07:47 Sodium 141 Potassium 4.8 Chloride 110 H Carbon Dioxide 21.6 BUN 61 H Creatinine 2.6 H Glucose 88 Calcium 8.7 ABG Interpretation ABG results: 01/25/24 01/25/24 01/26/24 19:50 20:13 03:33 ABG pH Cancelled 7.36 7.36 ABG pCO2 Cancelled 39 39 ABG pO2 Cancelled 53 L* 77 L D ABG HCO3 Cancelled 22 22 ABG O2 Saturation Cancelled 87 L 96 ABG Base Excess Cancelled -3 -3 Quality Measures Quality Measures none Medications Home Medications and Allergies Allergies Allergy/AdvReac Type Severity Reaction Status Date / Time No Known Allergies Allergy Verified 06/19/22 16:16 Visit Medications Acetaminophen (Acetaminophen 325 Mg Tablet) 650 mg PO Q6H PRN PRN Reason: Fever >101.5 Stop: 02/23/24 19:39 Amlodipine Besylate (Amlodipine Besylate 5 Mg Tablet) 10 mg PO QDAY [facility] Stop: 02/24/24 08:59 Last Admin: 01/27/24 08:31 Dose: 10 mg Bumetanide (Bumetanide Inj 0.25 Mg/Ml Vial 4 Ml) 2 mg IVP BID [facility] Stop: 02/25/24 08:59 Last Admin: 01/27/24 08:30 Dose: 2 mg Carvedilol (Carvedilol 3.125 Mg Tablet) 6.25 mg PO BIDWM [facility] Stop: 02/25/24 07:59 Last Admin: 01/27/24 08:31 Dose: 6.25 mg Dextrose (Dextrose 50%-Water Inj 50 Ml Syringe) 25 ml IV Q15MIN PRN PRN Reason: BG 50-70 responsive npo pt Stop: 02/23/24 19:41 Dextrose (Dextrose 50%-Water Inj 50 Ml Syringe) 50 ml IV Q15MIN PRN PRN Reason: BG <50 OR BG <70 & pt unresponsive Stop: 02/23/24 19:41 Glucagon (Glucagon Inj 1 Mg Vial) 1 mg IM Q15MIN PRN PRN Reason: BG <70, and no IV access Heparin Sodium (Porcine) (Heparin Sod Inj 5000 Unit/Ml Vial) 5,000 unit SC Q8HR [facility] Stop: 02/07/24 21:59 Last Admin: 01/27/24 05:31 Dose: 5,000 unit Cefepime HCl 1 gm/ Sodium (Chloride) 50 mls @ 100 mls/hr IV QDAY [facility] Stop: 02/01/24 11:14 Last Admin: 01/27/24 08:28 Dose: 100 mls/hr Insulin Glargine (Insulin Glargine (Lantus) 5 Unit/0.05 Ml (Per 5 Units)) 10 unit SC QDAY [facility] Stop: 02/24/24 08:59 Last Admin: 01/27/24 08:42 Dose: 10 unit Insulin Human Regular (Insulin Hum Regular 1 Unit/0.01 Ml (Per Unit)) 0 unit SC ACHS [facility]; Protocol Stop: 02/23/24 20:59 Last Admin: 01/27/24 11:48 Dose: 1 unit Ipratropium [place] (Ipratropium Rt 0.5 Mg/ 2.5 Ml Nebu) 0.5 mg INH Q6HRRT PRN PRN Reason: SHORTNESS OF BREATH OR WHEEZE Stop: 02/23/24 21:00 Last Admin: 01/26/24 00:42 Dose: 0.5 mg Levalbuterol HCl (Levalbuterol Rt 1.25 Mg/0.5 Ml Nebu) 1.25 mg INH Q6HRRT [facility] Stop: 02/24/24 00:59 Last Admin: 01/27/24 12:12 Dose: 1.25 mg Ondansetron HCl (Ondansetron Inj 2 Mg/Ml Inj 2 Ml) 4 mg IV Q6HR PRN; Protocol PRN Reason: NAUSEA OR VOMITING Stop: 02/24/24 05:01 Last Admin: 01/25/24 05:11 Dose: 4 mg Sodium Chloride (Sodium Chloride Rt Silvina 0.9% 3 Ml Nebu) 3 ml INH Q6HRRT PRN PRN Reason: SOLN Stop: 02/23/24 21:00 Last Admin: 01/27/24 12:12 Dose: 3 ml Discontinued Medications Albuterol (Albuterol Rt 2.5 Mg/0.5 Ml Nebu) 5 mg INH X1 ONE Stop: 01/24/24 17:06 Last Admin: 01/24/24 17:28 Dose: 5 mg Albuterol/Ipratropium (Albuterol/Ipratropium (Duoneb) Rt Silvina 3 Ml Nebu) 3 ml INH X1 ONE Stop: 01/24/24 18:39 Last Admin: 01/24/24 18:45 Dose: 3 ml Azithromycin (Azithromycin 250 Mg Tablet) 500 mg PO QDAY [facility]; Protocol Stop: 02/01/24 08:59 Last Admin: 01/25/24 07:54 Dose: 500 mg Bumetanide (Bumetanide Inj 0.25 Mg/Ml Vial 4 Ml) 2 mg IVP X1 ONE Stop: 01/25/24 19:51 Last Admin: 01/25/24 20:05 Dose: 2 mg Furosemide (Furosemide Inj 10 Mg/Ml 4ml Vial) 40 mg IVP X1 ONE Stop: 01/24/24 19:20 Last Admin: 01/24/24 19:43 Dose: 40 mg Furosemide (Furosemide Inj 10 Mg/Ml 4ml Vial) 40 mg IVP BIDD ANAMARIA Stop: 02/24/24 05:59 Last Admin: 01/25/24 18:31 Dose: 40 mg Furosemide (Furosemide Inj 10 Mg/Ml 4ml Vial) 40 mg IVP X1 ONE Stop: 01/25/24 14:14 Last Admin: 01/25/24 15:19 Dose: 40 mg Ceftriaxone Sodium/Dextrose (Rocephin/D5w 1gm Iv Premix) 50 mls @ 100 mls/hr IV X1 ONE Stop: 01/24/24 19:26 Last Infusion: 01/24/24 19:48 Dose: Infused Ceftriaxone Sodium/Dextrose (Rocephin/D5w 1gm Iv Premix) 50 mls @ 100 mls/hr IV 2100 [facility] Stop: 02/01/24 20:59 Azithromycin 500 mg/ Sodium (Chloride) 250 mls @ 250 mls/hr IV QDAY [facility] Stop: 01/31/24 19:44 Last Admin: 01/25/24 06:49 Dose: Not Given Vancomycin/Sodium Chloride (Vancomycin/Ns 1 Gm Ivpb) 200 mls @ 120 mls/hr IV X1 ONE Stop: 01/25/24 13:09 Last Admin: 01/25/24 14:21 Dose: 120 mls/hr Vancomycin/Sodium Chloride (Vancomycin/Ns 1 Gm Ivpb) 200 mls @ 120 mls/hr IV QDAY@1000 [facility] Stop: 02/02/24 09:59 Last Admin: 01/27/24 10:15 Dose: 120 mls/hr Ipratropium [place] (Ipratropium Rt 0.5 Mg/ 2.5 Ml Nebu) 1 mg INH X1 ONE Stop: 01/24/24 17:06 Last Admin: 01/24/24 17:29 Dose: 1 mg Labetalol HCl (Labetalol Inj 5 Mg/Ml Vial 20 Ml) 10 mg IVP X1 ONE Stop: 01/26/24 02:12 Last Admin: 01/26/24 02:22 Dose: 10 mg Permethrin (Permethrin Cr 5% 60 Gm Tube) 0 gm TOP X1 ONE Stop: 01/25/24 17:56 Last Admin: 01/25/24 20:09 Dose: 1 applicatio Permethrin (Permethrin Creme Rinse 60 Ml Btl) 0 ml TOP X1 ONE Stop: 01/26/24 13:50 Last Admin: 01/26/24 15:44 Dose: 1 applicatio Pharmacy Consult (Vancomycin Pharmacy To Dose 1 Each Each) 1 each IV QDAY PRN PRN Reason: CONSULT Stop: 02/24/24 11:14 Sodium Chloride (Sodium Chloride Rt Silvina 0.9% 3 Ml Nebu) 3 ml INH PRN PRN PRN Reason: SOLN Stop: 02/23/24 17:04 Last Admin: 01/25/24 06:17 Dose: 3 ml Sodium Chloride (Sodium Chloride Rt 10% 15 Ml Nebu) 5 ml INH X1 ONE Stop: 01/26/24 07:57 Last Admin: 01/26/24 13:35 Dose: Not Given Sodium Polystyrene Sulfonate (Sod Polystyrene Sulfon Susp 15 Gm/60 Ml Btl) 30 gm PO X1 ONE Stop: 01/26/24 07:02 Last Admin: 01/26/24 07:16 Dose: 30 gm Assessment & Plan Plan Patient is a 63-year-old male with a past medical history significant for essential hypertension for more than 20 years, hyperlipidemia does not appear to be statin at home, insulin-dependent diabetes mellitus type 2 [6.2] more than 30 years and CKD stage 3 B. Does not have a primary care doctor. Patient presented to the ED on 01/23 with a chief complaint of SOB and chest discomfort for 1 week. Cardiology was consulted for acute decompensated heart failure. 1. Acute respiratory failure with hypoxia Secondary to 2. Acute decompensated heart failure with preserved ejection fraction [50-55%] 3. B/L pleural effusions On admission patient was SOB at rest associated with chest discomfort for the past week which worsened the day of admission. BNP was elevated at 671 and troponin were negative on admission. Patient's home diuretic hydrochlorothiazide 50 Mg p.o. daily and furosemide 20 Mg p.o. daily. Chest x-ray showed moderate vascular congestion with bilateral pleural effusion and possible superimposed lower lobe consolidation bilateral. EKG showed sinus rhythm rate 95 NYHA stage C class IV Transthoracic echocardiogram completed on 01/26/2024 findings include: Normal LV size and function. Estimated EF 50-55% Normal RV size and function. Trace MR, TR. Left pleural effusion present. Previous echocardiogram from 10/06/2023: Normal LV size and function. Stage I diastolic dysfunction. Estimated EF 60-65%. Initially patient was diuresed with Lasix 40 Mg IV daily but was minimally responsive and was eventually switched to Bumex 2 Mg IV twice daily with better response. He had a output of 1075 cc in the past 24 hours with a net fluid balance of -145 cc. Patient also had therapeutic/diagnostic thoracentesis done yesterday for bilateral large pleural effusion. Approximately 600 cc of straw- colored fluid was drained and pleural fluid analysis was significant for transudative picture confirming etiology of CHF. Plan: ? Strict input output charting ? 2 g sodium restricted diet ? 1500 cc a day fluid restriction ? Continue diuresis with Bumex 2 Mg IV twice daily ? Aim for diuresis of 1?2 L per day -Recommend goal-directed medical therapy for heart failure. Patient may not be able to start Entresto due to his CKD but can start spironolactone at a later time. Patient also appears to be on SGLT2 as part of his home medication which can also be restarted on discharge. ? Continue carvedilol 6.25 Mg p.o. twice daily and uptitrate as necessary ? Maintain potassium greater than 4 and Mg greater than 2 at all times to prevent any arrhythmias. 4. Essential hypertension Unsure of patient's home medication as he cannot recall the names and medication reconciliation not completed. It appears he might have been on amlodipine 10 Mg p.o. daily, furosemide 20 Mg p.o. daily and hydrochlorothiazide 50 Mg p.o. daily and Coreg 6.25 Mg p.o. twice daily. On admission patient's BP 175/85 with trend of SBP's between 140s?170s since admission. Plan: ? Recommend to continue amlodipine 10 Mg p.o. daily ? Can uptitrate Coreg 6.25 Mg p.o. twice daily as necessary to achieve BP control. 5. Hyperlipidemia Upon chart review patient's last lipid panel from 10/05/2023 showed triglycerides 227, cholesterol 148, LDL 86. Patient does not appear to have been on a statin at home. Plan: ? Recommend high intensity statin, atorvastatin 40 Mg p.o. at bedtime 6. Sepsis secondary to community-acquired pneumonia. On admission patient met SIRS 2/4. RR 24 and WBC 15.4. Chest x-ray showed bilateral lower lobe consolidation as source of infection. Procalcitonin was within normal limits on admission as well as lactic acid level. Patient did not have any fever during visit. Sputum Gram stain done on 01/25 showed 2+ GPC and rare WBCs, sputum culture still pending. Patient currently hypotensive with BP 151/86 and similar trend over the course of admission, no concern for hypotension at this time. Patient was treated with 2 days of azithromycin and Rocephin IV as well as vancomycin IV for 2 days. Patient is currently treated with cefepime. Blood cultures are currently pending with preliminary report no bacterial growth after 48 hours. Plan: ? Continue management as per primary team 7. JOSE MARIA on CKD stage IIIb Patient's baseline CR between 1.9?2. On admission patient CR 2.8. Etiology likely prerenal in the setting of CHF exacerbation. Continue management as per primary team. 8. Insulin-dependent diabetes mellitus type 2 [6.2] Patient had diabetes mellitus for the past 30 years and currently on insulin, empagliflozin/metformin and Ozempic at home. Most recent HbA1c 6.2% from this admission. Continue management as per primary team 9. Right foot osteomyelitis s/p transmetatarsal amputation [September 2023] Patient has history of poorly controlled diabetes in the past leading to right foot ulcer and eventual osteomyelitis leading to amputation earlier this year. On this admission foot x-ray showed cortical bone destruction at the end of the first metatarsal as well as distal second metatarsal and proximal phalanx second digit. Negative for gas gangrene or acute osteomyelitis. Patient was evaluated by general surgeon, Dr Serna who assessed patient to have a superficial ulcer and not acute osteomyelitis. Foot ulcer unlikely source of patient's sepsis. 10. Normocytic anemia On admission patient's Hb 8.9, from chart review baseline appears to be between 10?11. DDx: Iron deficiency anemia, anemia of chronic disease, thalassemia, sideroblastic anemia, lead poisoning. Iron panel from this admission showed iron low 18, TIBC low 243 and ferritin within normal limits 132 Etiology possibly multifactorial iron deficiency also anemia of chronic disease secondary to CKD. Recommend IV iron once sepsis resolves and Epogen on this admission for optimization of Hb. 11. Possible scabies Patient states that multiple residents at his rehab center were recently diagnosed with scabies. Patient also has multiple excoriations on his back and upper extremities. Patient was treated with permethrin x 1 on 01/26/2003/04/2024 and contact precautions were initiated. Continue rest of management as per primary team. We are grateful to be able to participate in Mr. Brunson' care. Thank you for the consult Plan of care discussed with attending Back Tacker, Dr Christie Dominguez MD PGY 1 Attending Provider Attestation/Addendum I have personally seen and examined the patient separately on the above date of service and discussed the plan of care with the resident. I reviewed the resident Dr. Dominguez consultation progress note and agree with the resident findings and plan in the note above and have also edited the documentation to reflect my findings and plan. Patient mostly appears to be in acute diastolic congestive heart failure exacerbation mostly secondary to diastolic dysfunction in the setting of uncontrolled hypertension and also CKD stage IIIb Patient possibly has cardiorenal syndrome with creatinine of around 2.6 and BUN of 77. Patient is fluid overloaded and at least 3-4+ edema noted up to the thighs but there is no evidence of any scrotal involvement. Patient initially did not respond to Lasix and pigment to give the Bumex 2 mg IV twice daily for now. Acute potassium greater than 4 and magnesium greater than 2.0 at all times. Continue IV diuresis aggressively as the patient has significant fluid on board. Strict input output, daily weights and 2 g odium diet. Continue amlodipine 10 mg once daily and start hydralazine 100 mg every 8 hours for now as patient is CKD stage IIIb Beta-blockers are contraindicated in the setting of severe CHF exacerbation and can hold beta-blockers for now or continue at lower dose of Coreg. Recommend excellent control of blood pressure with systolic less than 140 mmHg. Management of rest of the medical conditions as per primary team and other consultants. Thank you for the consult and allowing me to participate in the care of the patient. Cardiology will continue to follow. Kyle Soriano M.D. Interventional Cardiology Kyle Soriano M.D. Interventional Cardiology
--- NOTE | 2024-01-27 16:07 | PD.ADDPROG ---
Addendum Progress Note Addendum Date of report being addended: 01/28/24 Narrative: I reviewed labs, imaging, EKG, home medications and prior available records. Face to face evaluation was performed by me. I have personally examined the patient and discussed assessment and plan with the IM team. I reviewed the resident note and agree with the plan with exceptions as below. Acute hypoxic respiratory failure: He is on 3 L nasal cannula. Likely in setting of CHF exacerbation. Got worse for which the patient was upgraded to the ICU for close monitoring. Now downgraded. Management as below. Wean off oxygen as tolerated. Sepsis secondary to pneumonia versus right foot osteomyelitis: Started vancomycin/cefepime. Follow-up cultures. Right foot osteomyelitis: Consulted surgery for possible debridement: Recommended no surgical intervention but antibiotics. Discontinued vancomycin as MRSA screening test is negative. Continue wound care. CHF exacerbation: In the setting of history of heart failure with preserved EF of 60 to 65%. Ordered repeat echocardiogram that showed preserved EF. Continue IV diuresis. Decrease Coreg. Start hydralazine. Monitor I's and O's. Pleural effusion: Status post pleurocentesis that showed transudative fluid. Initially thought due to CHF however analysis of the fluid showed Gram positive cocci which could be contamination. However, discussed with assistant restaurant general manager: Recommended drainage of the other side by IR and send the pleural fluid for Gram stain/culture. In case the second pleural fluid Gram stain/culture is positive then we will insert a chest tube for drainage. Continue IV cefepime. Ordered cocci IgM. JOSE MARIA on CKD: Likely cardiorenal in the setting of CHF versus new baseline CKD. Diuresis as above. Monitor kidney function. Avoid nephrotoxins. Renally dosed medications.
[2024-01-27] MEDS: ATORVASTATIN CALCIUM 20 MG TABLET 40 MG PO (21:21)
[2024-01-28] VITALS (20 sets, daily range): BP systolic 141–151; BP diastolic 72–91; PULSE 70–111; RESP 17–22; TEMP 36.2–36.8; O2SAT 93–100
[2024-01-28] MEDS: LEVALBUTEROL RT 1.25 MG/0.5 ML NEBU INH ×4 (00:10→19:03)
[2024-01-28] MEDS: SODIUM CHLORIDE RT SOL 0.9% 3 ML NEBU INH ×4 (00:10→19:03)
[2024-01-28] MEDS: HEPARIN SOD INJ 5000 UNIT/ML VIAL SC ×3 (05:30→21:03)
[2024-01-28 05:54] LABS: Basophils # (Auto) 0.1 Thou/mm3 (0.0-0.2); Basophils % (Auto) 0 % (0-2.5); Eosinophils # (Auto) 0.7 Thou/mm3 (0.0-0.5); Eosinophils % (Auto) 7 % (0-10); Hematocrit 24.6 % (41.0-53.0); Immature Granulocytes % (Auto) 0 % (0-0); Immature Granulocytes Auto 0.04 Thou/mm3 (0.00-0.00); Lymphocytes # (Auto) 1.9 Thou/mm3 (1.0-4.8); Lymphocytes % (Auto) 17 % (10-50); Mean Corpuscular HGB Conc 30.5 g/dl (31.0-37.0); Mean Corpuscular Hemoglobin 25.3 pg (25.0-35.0); Mean Corpuscular Volume 83 fL (80-100); Monocytes # (Auto) 0.9 Thou/mm3 (0.0-0.8); Monocytes % (Auto) 8 % (0-12); Neutrophils # (Auto) 7.5 Thou/mm3 (1.8-7.7); Neutrophils % (Auto) 67 % (37-80); Nucleated Red Blood Cell % 0 /100 WBC (0); Platelet Count 419 Thou/mm3 (140-440); RDW Standard Deviation 44.2 fL (35.1-43.9); Red Blood Count 2.96 Miln/mm3 (4.50-5.90); White Blood Count 11.2 Thou/mm3 (3.8-10.6)
[2024-01-28 05:55] LABS: Hemoglobin 7.5 g/dL (13.5-16.0)
[2024-01-28 06:21] LABS: Alanine Aminotransferase 19 U/L (10-49); Albumin, Serum 3.6 gm/dL (3.4-4.8); Alkaline Phosphatase 160 U/L (46-116); Anion Gap 8 (7-16); Aspartate Amino Transferase 15 U/L (0-34); BUN/Creatinine Ratio 25 Ratio (12-20); Bilirubin,Total 0.3 mg/dL (0.3-1.2); Blood Urea Nitrogen 64 mg/dL (9-23); Calcium 8.7 mg/dL (8.3-10.6); Carbon Dioxide 22.8 mMol/L (20.0-31.0); Chloride 109 mMol/L (98-107); Creatinine (Component) 2.6 mg/dL (0.6-1.3); Estimated Creatinine Clearance 31.8 mL/min (>60); Globulin 3.7 gm/dL (2.3-3.5); Glucose 97 mg/dL (74-106); Magnesium 2.5 mg/dL (1.6-2.6); Osmolality,Calculated 297 (275-295); Phosphorous 5.1 mg/dL (2.4-5.1); Potassium 4.5 mMol/L (3.4-5.1); Sodium 140 mMol/L (136-145); Total Protein 7.3 gm/dL (5.7-8.2); eGFR 27 See Note
[2024-01-28] MEDS: hydrALAZINE HCL 25 MG TABLET 100 MG PO ×2 (08:38→17:05)
[2024-01-28] MEDS: amLODIPine BESYLATE 5 MG TABLET 10 MG PO (08:39)
[2024-01-28] MEDS: BUMETANIDE INJ 0.25 MG/ML VIAL 4 ML 2 MG IVP ×2 (08:40→21:03)
[2024-01-28] MEDS: CEFEPIME INJ 1 GM in SODIUM CHLORIDE 0.9% (P) 50 ML IV (08:41)
[2024-01-28] MEDS: INSULIN GLARGINE (Lantus) 5 UNIT/0.05 ML (PER 5 UNITS) 10 UNIT SC (08:41)
--- NOTE | 2024-01-28 10:24 | PC.SS ---
Rounding: Pending Cardiology follow up and labs
[2024-01-28] MEDS: INSULIN HUM REGULAR 1 UNIT/0.01 ML (PER UNIT) SC ×2 (11:20→17:05)
--- NOTE | 2024-01-28 11:48 | XR_ITS ---
Examination: Ultrasound-guided right thoracentesis Ultrasound right and left hemithoraces Exam date and time: January 28, 2024 1325 hours INDICATIONS: Shortness of breath this week, chest x-ray January 27, 2024 bilateral pleural effusions TECHNIQUE AND FINDINGS: Multiple high resolution sonographic images right and left hemithoraces Large bilateral pleural effusions Informed consent provided. Timeout performed. Skin prepped over the right hemithorax and sterile drape applied hand hygiene maximum barrier sterile technique ultrasound sterile technique 1% lidocaine administered for local anesthesia Utilizing ultrasonographic guidance 5 Maori catheter placed in the right pleural space 1950 cc pleural fluid removed Estimated blood loss 0 cc IMPRESSION: Successful ultrasound-guided right thoracentesis, 1950 cc pleural fluid removed
--- NOTE | 2024-01-28 12:14 | PD.RESPRO ---
Documentation for date of: 01/28/24 Subjective Subjective Interval history: Patient is [place]ian-speaking only and interaction facilitated by healthcare senior software development manager Patient was seen and examined at bedside this AM. No acute exents overnight. Patient tolerating diet, adequate urine output and mentation is at baseline. Patient endorses improvement of SOB and denies any chest pain/pressure currently Patient currently on IV diuresis with Bumex 2 Mg IV twice daily. Fluid balance of -1600 cc in past 24 hours. Continue diuresis with goal of 1?2 L per day Patient still continues to be hypertensive with SBP's between 140s and 150s overnight Coreg dose was decreased to 3.125 p.o. twice daily from 6.25 p.o. twice daily as beta-blockers are contraindicated in severe CHF exacerbation. Patient was started on hydralazine 100 mg p.o. 3 times daily for better blood pressure control as he is also CKD stage IIIb Continue amlodipine 10 mg p.o. daily Potassium 4.5 and magnesium 2.5. Continue to maintain potassium greater than 4 and magnesium greater than 2 at all times to prevent any arrhythmias. Exam Vital Signs Temp Pulse Resp BP Pulse Ox O2 Del Method O2 Flow Rate 97.6 F 78 18 147/91 H 96 Nasal Cannula 2 01/28/24 08:00 01/28/24 09:00 01/28/24 09:00 01/28/24 08:40 01/28/24 09:00 01/28/24 08:00 01/28/24 09:00 FiO2 40 01/28/24 09:00 Narrative Exam Constitutional Alert, oriented x 3 and Comfortable. On 2 L O2 via NC. Can speak full sentences HEENT Vision grossly intact. Patent nares. Trachea midline Respiratory Chest normal on inspection and crackles from mid to lower lobes B/L. Bandage on left from thoracentesis noted Cardiovascular S1 and S2 audible, RRR. No murmurs carotid bruit. No gross JVD. Abdominal Soft,obese and non tender to palpation in all quadrants. BS + Genitourinary No bladder tenderness, no flank pain. Normal to palpation. No scrotal edema Musculoskeletal Extremities tone within normal limits. 4+ LE edema up to knees B/L. 2+ Edema of thighs b/l. Bandage noted on R foot Neurological CN II - XII grossly intact. Extremity motor and sensation grossly intact. Skin Warm, dry and intact. No apparent lesions. Psychiatric Patient has good affect, is cooperative Objective Labs 01/28/24 05:17 01/28/24 05:17 Labs: Laboratory Results - last 24 hr 01/28/24 05:17 WBC 11.2 H RBC 2.96 L Hgb 7.5 L Hct 24.6 L MCV 83 MCH 25.3 MCHC 30.5 L RDW Std Deviation 44.2 H Plt Count 419 Neut % (Auto) 67 Lymph % (Auto) 17 [place] % (Auto) 8 Eos % (Auto) 7 Baso % (Auto) 0 Neut # (Auto) 7.5 Lymph # (Auto) 1.9 [place] # (Auto) 0.9 H Eos # (Auto) 0.7 H Baso # (Auto) 0.1 Immature Gran # (Auto) 0.04 H Absolute Nucleated RBC 0.00 Immature Gran % 0 Nucleated RBC % 0 Sodium 140 Potassium 4.5 Chloride 109 H Carbon Dioxide 22.8 Anion Gap 8 BUN 64 H Creatinine 2.6 H Estim Creat Clear Calc 31.8 L eGFR 27 L BUN/Creatinine Ratio 25 H Glucose 97 Calculated Osmolality 297 H Calcium 8.7 Corrected Calcium 9.0 Phosphorus 5.1 Magnesium 2.5 Total Bilirubin 0.3 AST 15 ALT 19 Alkaline Phosphatase 160 H Total Protein 7.3 Albumin 3.6 Globulin 3.7 H Albumin/Globulin Ratio 1.0 L ABG Interpretation ABG results: 01/25/24 01/25/24 01/26/24 19:50 20:13 03:33 ABG pH Cancelled 7.36 7.36 ABG pCO2 Cancelled 39 39 ABG pO2 Cancelled 53 L* 77 L D ABG HCO3 Cancelled 22 22 ABG O2 Saturation Cancelled 87 L 96 ABG Base Excess Cancelled -3 -3 Quality Measures Quality Measures none Assessment & Plan Assessment Current Active Medications: Generic Name Dose Route Start Last Admin Trade Name Freq PRN Reason Stop Dose Admin Acetaminophen 650 mg 01/24/24 19:40 Acetaminophen 325 Mg Tablet PO 02/23/24 19:39 Q6H PRN Fever >101.5 Amlodipine Besylate 10 mg 01/25/24 09:00 01/28/24 08:39 Amlodipine Besylate 5 Mg Tablet PO 02/24/24 08:59 10 mg QDAY ANAMARIA Administration Atorvastatin Calcium 40 mg 01/27/24 21:00 01/27/24 21:21 Atorvastatin Calcium 20 Mg Tablet PO 02/26/24 20:59 40 mg HS ANAMARIA Administration Bumetanide 2 mg 01/26/24 09:00 01/28/24 08:40 Bumetanide Inj 0.25 Mg/Ml Vial 4 Ml IVP 02/25/24 08:59 2 mg BID ANAMARIA Administration Carvedilol 3.125 mg 01/28/24 17:30 Carvedilol 3.125 Mg Tablet PO 02/27/24 17:29 BIDWM ANAMARIA Dextrose 25 ml 01/24/24 19:42 Dextrose 50%-Water Inj 50 Ml Syringe IV 02/23/24 19:41 Q15MIN PRN BG 50-70 responsive npo pt Dextrose 50 ml 01/24/24 19:42 Dextrose 50%-Water Inj 50 Ml Syringe IV 02/23/24 19:41 Q15MIN PRN BG <50 OR BG <70 & pt unresponsive Glucagon 1 mg 01/24/24 19:42 Glucagon Inj 1 Mg Vial IM Q15MIN PRN BG <70, and no IV access Heparin Sodium (Porcine) 5,000 unit 01/24/24 22:00 01/28/24 05:30 Heparin Sod Inj 5000 Unit/Ml Vial SC 02/07/24 21:59 5,000 unit Q8HR ANAMARIA Administration Hydralazine HCl 100 mg 01/28/24 08:15 01/28/24 08:38 Hydralazine Hcl 25 Mg Tablet PO 02/27/24 08:14 100 mg Q8H ANAMARIA Administration Protocol Cefepime HCl 1 gm/ Sodium 50 mls @ 100 mls/hr 01/25/24 11:15 01/28/24 08:41 Chloride IV 02/01/24 11:14 100 mls/hr QDAY ANAMARIA Administration Insulin Glargine 10 unit 01/25/24 09:00 01/28/24 08:41 Insulin Glargine (Lantus) 5 Unit/0.05 Ml (Per 5 Units) SC 02/24/24 08:59 10 unit QDAY ANAMARIA Administration Insulin Human Regular 0 unit 01/24/24 21:00 01/28/24 11:20 Insulin Hum Regular 1 Unit/0.01 Ml (Per Unit) SC 02/23/24 20:59 1 unit ACHS ANAMARIA Administration Protocol Ipratropium Seffner 0.5 mg 01/24/24 21:01 01/26/24 00:42 Ipratropium Rt 0.5 Mg/ 2.5 Ml Nebu INH 02/23/24 21:00 0.5 mg Q6HRRT PRN Administration SHORTNESS OF BREATH OR WHEEZE Levalbuterol HCl 1.25 mg 01/25/24 01:00 01/28/24 06:31 Levalbuterol Rt 1.25 Mg/0.5 Ml Nebu INH 02/24/24 00:59 1.25 mg Q6HRRT ANAMARIA Administration Ondansetron HCl 4 mg 01/25/24 05:02 01/25/24 05:11 Ondansetron Inj 2 Mg/Ml Inj 2 Ml IV 02/24/24 05:01 4 mg Q6HR PRN Administration NAUSEA OR VOMITING Protocol Sodium Chloride 3 ml 01/24/24 21:01 01/28/24 06:31 Sodium Chloride Rt Silvina 0.9% 3 Ml Nebu INH 02/23/24 21:00 3 ml Q6HRRT PRN Administration SOLN Plan Patient is a 63-year-old male with a past medical history significant for essential hypertension for more than 20 years, hyperlipidemia does not appear to be statin at home, insulin-dependent diabetes mellitus type 2 [6.2] more than 30 years and CKD stage 3 B. Does not have a primary care doctor. Patient presented to the ED on 01/23 with a chief complaint of SOB and chest discomfort for 1 week. Cardiology was consulted for acute decompensated heart failure. 1. Acute respiratory failure with hypoxia Secondary to 2. Acute decompensated heart failure with preserved ejection fraction [50-55%] 3. B/L pleural effusions On admission patient was SOB at rest associated with chest discomfort for the past week which worsened the day of admission. BNP was elevated at 671 and troponin were negative on admission. Patient's home diuretic hydrochlorothiazide 50 Mg p.o. daily and furosemide 20 Mg p.o. daily. Chest x-ray showed moderate vascular congestion with bilateral pleural effusion and possible superimposed lower lobe consolidation bilateral. EKG showed sinus rhythm rate 95 NYHA stage C class IV Transthoracic echocardiogram completed on 01/26/2024 findings include: Normal LV size and function. Estimated EF 50-55% Normal RV size and function. Trace MR, TR. Left pleural effusion present. Previous echocardiogram from 10/06/2023: Normal LV size and function. Stage I diastolic dysfunction. Estimated EF 60-65%. Initially patient was diuresed with Lasix 40 Mg IV daily but was minimally responsive and was eventually switched to Bumex 2 Mg IV twice daily with better response. He had a output of 1075 cc in the past 24 hours with a net fluid balance of -145 cc. Patient also had therapeutic/diagnostic thoracentesis done yesterday for bilateral large pleural effusion. Approximately 600 cc of straw-colored fluid was drained and pleural fluid analysis was significant for transudative picture confirming etiology of CHF. Fluid balance of -1600 cc in past 24 hours. Continue diuresis with goal of 1?2 L per day Pleural fluid culture from 01/25 grew GPC 4+ preliminary. Plan: ? Strict input output charting ? 2 g sodium restricted diet ? 1500 cc a day fluid restriction ? Aim for diuresis of 1?2 L per day - Recommend goal-directed medical therapy for heart failure. Patient may not be able to start Entresto due to his CKD but can start spironolactone at a later time. Patient also appears to be on SGLT2 as part of his home medication which can also be restarted on discharge. - Beta-blockers contraindicated in severe CHF exacerbation, can decrease dosage or hold at this time. - Coreg dose was decreased to 3.125 p.o. twice daily from 6.25 p.o. twice daily ? Continue diuresis with Bumex 2 Mg IV twice daily ? Maintain potassium greater than 4 and Mg greater than 2 at all times to prevent any arrhythmias. 4. Essential hypertension Unsure of patient's home medication as he cannot recall the names and medication reconciliation not completed. It appears he might have been on amlodipine 10 Mg p.o. daily, furosemide 20 Mg p.o. daily and hydrochlorothiazide 50 Mg p.o. daily and Coreg 6.25 Mg p.o. twice daily. On admission patient's BP 175/85 Patient still continues to be hypertensive with SBP's between 140s and 150s overnight Plan: ? Recommend to continue amlodipine 10 Mg p.o. daily - Recommend to continue hydralazine 100 mg p.o. 3 times daily for better blood pressure control as he is also CKD stage IIIb - Recommend excellent control of blood pressure with systolic less than 140 mmHg. 5. Hyperlipidemia Upon chart review patient's last lipid panel from 10/05/2023 showed triglycerides 227, cholesterol 148, LDL 86. Patient does not appear to have been on a statin at home. Plan: ? Recommend high intensity statin, atorvastatin 40 Mg p.o. at bedtime 6. Sepsis secondary to community-acquired pneumonia. On admission patient met SIRS 2/4. RR 24 and WBC 15.4. Chest x-ray showed bilateral lower lobe consolidation as source of infection. Procalcitonin was within normal limits on admission as well as lactic acid level. Patient did not have any fever during visit. Sputum Gram stain done on 01/25 showed 2+ GPC and rare WBCs, sputum culture still pending. Patient currently hypotensive with BP 151/86 and similar trend over the course of admission, no concern for hypotension at this time. Patient was treated with 2 days of azithromycin and Rocephin IV as well as vancomycin IV for 2 days. Patient is currently treated with cefepime. Blood cultures are currently pending with preliminary report no bacterial growth after 48 hours. Plan: ? Continue management as per primary team 7. JOSE MARIA on CKD stage IIIb Patient's baseline CR between 1.9?2. On admission patient CR 2.8. Etiology likely prerenal in the setting of CHF exacerbation. Continue management as per primary team. 8. Insulin-dependent diabetes mellitus type 2 [6.2] Patient had diabetes mellitus for the past 30 years and currently on insulin, empagliflozin/metformin and Ozempic at home. Most recent HbA1c 6.2% from this admission. Continue management as per primary team 9. Right foot osteomyelitis s/p transmetatarsal amputation [September 2023] Patient has history of poorly controlled diabetes in the past leading to right foot ulcer and eventual osteomyelitis leading to amputation earlier this year. On this admission foot x-ray showed cortical bone destruction at the end of the first metatarsal as well as distal second metatarsal and proximal phalanx second digit. Negative for gas gangrene or acute osteomyelitis. Patient was evaluated by general surgeon, Dr Serna who assessed patient to have a superficial ulcer and not acute osteomyelitis. Foot ulcer unlikely source of patient's sepsis. 10. Normocytic anemia On admission patient's Hb 8.9, from chart review baseline appears to be between 10?11. DDx: Iron deficiency anemia, anemia of chronic disease, thalassemia, sideroblastic anemia, lead poisoning. Iron panel from this admission showed iron low 18, TIBC low 243 and ferritin within normal limits 132 Etiology possibly multifactorial iron deficiency also anemia of chronic disease secondary to CKD. Recommend IV iron once sepsis resolves and Epogen on this admission for optimization of Hb. 11. Possible scabies Patient states that multiple residents at his rehab center were recently diagnosed with scabies. Patient also has multiple excoriations on his back and upper extremities. Patient was treated with permethrin x 1 on 01/26/2003/04/2024 and contact precautions were initiated. Continue rest of management as per primary team. We are grateful to be able to participate in Mr. Sandoval' care. Thank you for the consult Plan of care discussed with attending Toll Ticket Clerk, Dr Christie Dominguez MD PGY 1 Attending Provider Attestation/Addendum I have personally seen and examined the patient separately on the above date of service and discussed the plan of care with the resident. I reviewed the resident Dr. Dominguez consultation progress note and agree with the resident findings and plan in the note above and have also edited the documentation to reflect my findings and plan. Kyle Soriano M.D. Interventional Cardiology
--- NOTE | 2024-01-28 13:33 | ESPR_ITS ---
<Statement entered by Jc Barrera MD - 01/28/24 17:59> Senior Resident Attestation: I supervised/discussed management plan with internet marketing manager physician Dr. Kim, and was involved in the care of this patient. I personally saw and examined the patient and discussed the assessment and plan with the entire medicine team, including my attending. I agree with the assessment and plan as documented. Pleural fluid culture preliminary shown GPC, as well as sputum culture. His carvedilol was decreased to 3.125 mg and he was started on hydralazine 100 mg Q8H. US guided paracenthesis was done and 1950cc was removed and sent for analysis. Repeat CXR showed improvement in the effusion. We will continue current management. Patient's care was discussed with attending physician, Dr. Romano. Jc Barrera MD PGY-2. <Statement entered by Angel Nielson DO - 01/28/24 17:59> Senior attestation: Patient was examined and case was reviewed with team including attending physician. Note reviewed, I agree with most of its contents and agree with the patient's care. Right sided thoracentesis completed today removing ~1950 cc fluid. Coreg dose decreased, hydralazine started. Will continue diuresis, patient may need extended antibiotic course upon discharge for osteomyelitis findings. Angel Nielson DO PGY-3 Documentation for date of: 01/28/24 Subjective Subjective Interval history: Patient seen at bedside this morning. No overnight events. Patient oxygen requirements have decreased and he is currently on 2 flow via nasal cannula. Patient's pleural fluid did come back positive preliminary for GPC's as well as did his sputum cultures. We will hold off on chest tube placement until final results, and came in as it can be a contaminant. Ordered a right ultrasound- guided thoracentesis given that the patient did not receive a right thoracentesis. Pleural studies will be sent from the right thoracentesis and if those come back positive for any bacteria in the left pleural fluid final results come back positive that could be a possibility for a chest tube insertion. Cardiology also recommended to start patient on 100 mg of hydralazine every 8 and to decrease patient's Coreg as well as continue diuresis with Bumex 2 mg IV twice daily. Exam Vital Signs Temp Pulse Resp BP Pulse Ox O2 Del Method O2 Flow Rate 97.6 F 78 18 147/91 H 96 Nasal Cannula 2 01/28/24 08:00 01/28/24 09:00 01/28/24 09:00 01/28/24 08:40 01/28/24 09:00 01/28/24 08:00 01/28/24 09:00 FiO2 40 01/28/24 09:00 Narrative Exam General: A/O x3, disheveled Eyes: PERRL, EOMI. Anicteric, vision grossly intact. Ears: No ear pain, no ear discharge, Hearing grossly intact. Nose: No nasal discharge. Mouth/Throat: Dry mucous membranes, no redness, no lesions. Neck: Short neck, non-tender, no cervical lymphadenopathy. Lungs: Decreased breath sounds ANGEL, No accessory muscle use. Cardio: Normal S1/S2, regular rhythm, no murmurs, no JVD Abdomen: Soft, non-tender, no palpable masses, peristalsis present, no guarding or rebound. Extremities: Symmetrical, no significant deformities, 3+ peripheral edema , non-tender, peripheral pulses present, R first toe amputation with ulcer-like wound, clean dressing over site of thoracentesis and R foot wound. Skin: No rashes, no lesions, warm to touch. Multiple excoriations in entire back and UE. Neuro: No focal neurological deficits. motor and sensory intact Psych: Cooperative, appropriate mood and effect. Objective Labs 02/02/24 05:54 02/02/24 05:54 Labs: Laboratory Results - last 24 hr 01/28/24 05:17 WBC 11.2 H RBC 2.96 L Hgb 7.5 L Hct 24.6 L MCV 83 MCH 25.3 MCHC 30.5 L RDW Std Deviation 44.2 H Plt Count 419 Neut % (Auto) 67 Lymph % (Auto) 17 [place] % (Auto) 8 Eos % (Auto) 7 Baso % (Auto) 0 Neut # (Auto) 7.5 Lymph # (Auto) 1.9 [place] # (Auto) 0.9 H Eos # (Auto) 0.7 H Baso # (Auto) 0.1 Immature Gran # (Auto) 0.04 H Absolute Nucleated RBC 0.00 Immature Gran % 0 Nucleated RBC % 0 Sodium 140 Potassium 4.5 Chloride 109 H Carbon Dioxide 22.8 Anion Gap 8 BUN 64 H Creatinine 2.6 H Estim Creat Clear Calc 31.8 L eGFR 27 L BUN/Creatinine Ratio 25 H Glucose 97 Calculated Osmolality 297 H Calcium 8.7 Corrected Calcium 9.0 Phosphorus 5.1 Magnesium 2.5 Total Bilirubin 0.3 AST 15 ALT 19 Alkaline Phosphatase 160 H Total Protein 7.3 Albumin 3.6 Globulin 3.7 H Albumin/Globulin Ratio 1.0 L ABG Interpretation ABG results: 01/25/24 01/25/24 01/26/24 19:50 20:13 03:33 ABG pH Cancelled 7.36 7.36 ABG pCO2 Cancelled 39 39 ABG pO2 Cancelled 53 L* 77 L D ABG HCO3 Cancelled 22 22 ABG O2 Saturation Cancelled 87 L 96 ABG Base Excess Cancelled -3 -3 Quality Measures Quality Measures none Assessment & Plan Assessment Current Active Medications: Generic Name Dose Route Start Last Admin Trade Name Freq PRN Reason Stop Dose Admin Acetaminophen 650 mg 01/24/24 19:40 Acetaminophen 325 Mg Tablet PO 02/23/24 19:39 Q6H PRN Fever >101.5 Amlodipine Besylate 10 mg 01/25/24 09:00 01/28/24 08:39 Amlodipine Besylate 5 Mg Tablet PO 02/24/24 08:59 10 mg QDAY ANAMARIA Administration Atorvastatin Calcium 40 mg 01/27/24 21:00 01/27/24 21:21 Atorvastatin Calcium 20 Mg Tablet PO 02/26/24 20:59 40 mg HS ANAMARIA Administration Bumetanide 2 mg 01/26/24 09:00 01/28/24 08:40 Bumetanide Inj 0.25 Mg/Ml Vial 4 Ml IVP 02/25/24 08:59 2 mg BID ANAMARIA Administration Carvedilol 3.125 mg 01/28/24 17:30 Carvedilol 3.125 Mg Tablet PO 02/27/24 17:29 BIDWM ANAMARIA Dextrose 25 ml 01/24/24 19:42 Dextrose 50%-Water Inj 50 Ml Syringe IV 02/23/24 19:41 Q15MIN PRN BG 50-70 responsive npo pt Dextrose 50 ml 01/24/24 19:42 Dextrose 50%-Water Inj 50 Ml Syringe IV 02/23/24 19:41 Q15MIN PRN BG <50 OR BG <70 & pt unresponsive Glucagon 1 mg 01/24/24 19:42 Glucagon Inj 1 Mg Vial IM Q15MIN PRN BG <70, and no IV access Heparin Sodium (Porcine) 5,000 unit 01/24/24 22:00 01/28/24 05:30 Heparin Sod Inj 5000 Unit/Ml Vial SC 02/07/24 21:59 5,000 unit Q8HR ANAMARIA Administration Hydralazine HCl 100 mg 01/28/24 08:15 01/28/24 08:38 Hydralazine Hcl 25 Mg Tablet PO 02/27/24 08:14 100 mg Q8H ANAMARIA Administration Protocol Cefepime HCl 1 gm/ Sodium 50 mls @ 100 mls/hr 01/25/24 11:15 01/28/24 08:41 Chloride IV 02/01/24 11:14 100 mls/hr QDAY ANAMARIA Administration Insulin Glargine 10 unit 01/25/24 09:00 01/28/24 08:41 Insulin Glargine (Lantus) 5 Unit/0.05 Ml (Per 5 Units) SC 02/24/24 08:59 10 unit QDAY ANAMARIA Administration Insulin Human Regular 0 unit 01/24/24 21:00 01/28/24 11:20 Insulin Hum Regular 1 Unit/0.01 Ml (Per Unit) SC 02/23/24 20:59 1 unit ACHS ANAMARIA Administration Protocol Ipratropium [place] 0.5 mg 01/24/24 21:01 01/26/24 00:42 Ipratropium Rt 0.5 Mg/ 2.5 Ml Nebu INH 02/23/24 21:00 0.5 mg Q6HRRT PRN Administration SHORTNESS OF BREATH OR WHEEZE Levalbuterol HCl 1.25 mg 01/25/24 01:00 01/28/24 12:51 Levalbuterol Rt 1.25 Mg/0.5 Ml Nebu INH 02/24/24 00:59 1.25 mg Q6HRRT ANAMARIA Administration Ondansetron HCl 4 mg 01/25/24 05:02 01/25/24 05:11 Ondansetron Inj 2 Mg/Ml Inj 2 Ml IV 02/24/24 05:01 4 mg Q6HR PRN Administration NAUSEA OR VOMITING Protocol Sodium Chloride 3 ml 01/24/24 21:01 01/28/24 12:50 Sodium Chloride Rt [place] 0.9% 3 Ml Nebu INH 02/23/24 21:00 3 ml Q6HRRT PRN Administration SOLN Plan 63-year-old male with past medical history of HFpEF (EF 50 to 55%) DM2, hyperlipidemia, hypertension, prior osteomyelitis of right first toe s/p amputation was admitted to the hospital on 01/24/2024 for acute hypoxic respiratory failure secondary to acute decompensated heart failure exacerbation and sepsis likely secondary to pneumonia versus osteomyelitis. #Acute decompensated heart failure exacerbation #HFpEF (EF 50 to 55% 01/2024) #Acute hypoxic respiratory failure #Bilateral pleural effusions ?Patient came in with shortness of breath, bilateral lower extremity edema, and orthopnea ?Patient's last echo on 09/2023 showed an ejection fraction of 60 to 65% ?Chest x-ray 01/24/24 showed moderate heart failure ? BNP 671 -Echo showed EF 50-55% -Pleural fluid was transudative using lights criteria, most likely due to HF exacerbation. -thoracentesis L side on 01/26/2024 Plan: ?Continue IV Bumex 2mg twice daily -Decreased Carvedilol to 3.125mg BID -US thoracentesis R side ?Strict CHAR's ? Fluid restrictions 1500 mL daily ? Daily weights ? Keep potassium above 4 and magnesium above 2 -Loq sodium diet -Cardiology consulted (Dr. Soriano), appreciate recommendations ?Will continue to monitor #Sepsis likely secondary to pneumonia versus osteomyelitis #Pneumonia #Osteomyelitis ?Initially patient met SIRS criteria 2 out of 4 with leukocytosis and tachypnea ?Chest x-ray showed bilateral pneumonia and pleural effusions -CXR 01/27/2024 showed extensive ANGEL PNA ?Right foot x-ray showed osteomyelitis in the amputated first metatarsal and second metatarsophalangeal joint ?WBC 11.2 ?Discontinue azithromycin and Rocephin Plan: ?Continue cefepime [01/25/2024?] -DC's vancomycin [01/25/2024?01/27/2024] ?Blood cultures ordered ?Breathing treatments as needed -Wound care ?Referral to physical therapy ?General Surgery consulted (Dr. Serna), recommended no surgery at the moment and to continue antibiotics #JOSE MARIA on CKD ?Patient has some underlying CKD since last year with GFR in the high 30s to 40s -Baseline Cr 1.9 and was 2.8 on admission -Likely prerenal given heart failure and volume overload status ?BUN 64 and creatinine 2.6 today Plan: ?Avoid nephrotoxic agents ? Renally dose medications -Continue Diuresis with bumex 2mg BID ? Will continue to monitor #Scabies ? Patient stated that multiple residents in his rehab center were diagnosed with scabies. ?Patient has multiple excoriations on his entire back and bilateral upper extremities. Plan: ? Permethrin x 1 done on 01/26/2024 ? Contact precautions ?will continue to monitor #Normocytic normochromic anemia ?Patient has a Hx of normocytic anemia with Hgb 10.4 prior to admission - Hgb 7.5 Plan: ?Will transfuse if hemoglobin less than 7 ?Will continue to monitor #Hx of DM2 ?A1c 6.2 on 01/25/2024 Plan: ?ISS ? Accu-Cheks and hypoglycemia protocol ? Will continue to monitor #Hx of hyperlipidemia ?Triglycerides 227, cholesterol 148, LDL 86, HDL 17 on 10/05/2023 Plan: ?Continue atorvastatin 40 mg #Hx of HTN ?Continue amlodipine 10 mg daily -Started hydralazine 100mg every 8 hours Disposition: Patient seen in telemetry continuing Antibiotic for Sepsis, pending US thora of R side. Diet: carb consistent GI prophylaxis: not indicated DVT prophylaxis: Heparin sc Code: Full Case disclosed with Attending Dr. Romano and My senior Dr. Barrera PGY2 and Dr. Nielson PGY3. Henri Perkins PGY1 Attending Provider Attestation/Addendum I reviewed labs, imaging, EKG, home medications and prior available records. Face to face evaluation was performed by me. I have personally examined the patient and discussed assessment and plan with the IM team. I reviewed the resident note and agree with the plan with exceptions as below. Please see my addendum in the separate note for the date of 01/27.
--- NOTE | 2024-01-28 13:45 | XR_ITS ---
Examination: AP chest single view Technique one AP semiupright portable chest single view Exam date and time: January 28, 2024 1358 hours Comparison January 27, 2024 INDICATIONS: Post right thoracentesis FINDINGS: No pneumothorax post right thoracentesis Marked decrease in right pleural fluid Diffuse left lung pneumonia IMPRESSION: No pneumothorax post right thoracentesis
[2024-01-28 14:42] LABS: Cocci Serology, IgM Negative (Negative)
[2024-01-28 15:19] LABS: Amylase,Pleural Fluid < 20 IU/L; Glucose,Pleural Fluid 143 mg/dL; LDH,Pleural Fluid 87 IU/L; Protein Total,Pleural Fluid 2.2 g/dL
[2024-01-28 15:23] LABS: Pleural Fluid WBC 253 /cmm
[2024-01-28 15:56] LABS: Pleural Fluid Appearance Hazy; Pleural Fluid Color Yellow; Pleural Fluid Mononuclear 98 %; Pleural Fluid Polynuclear 2 %; Pleural Fluid RBC 1000 /cmm
[2024-01-28] MEDS: IPRATROPIUM RT 0.5 MG/ 2.5 ML NEBU INH (16:33)
[2024-01-28] MEDS: carVEDILOL 3.125 MG TABLET PO (18:12)
[2024-01-28] MEDS: ATORVASTATIN CALCIUM 20 MG TABLET 40 MG PO (21:03)
[2024-01-29] VITALS (23 sets, daily range): BP systolic 122–167; BP diastolic 63–90; PULSE 74–95; RESP 14–27; TEMP 36.4–37.1; O2SAT 93–100; BMI 34.4
[2024-01-29] MEDS: hydrALAZINE HCL 25 MG TABLET 100 MG PO ×4 (00:04→23:57)
[2024-01-29] MEDS: LEVALBUTEROL RT 1.25 MG/0.5 ML NEBU INH ×4 (00:18→19:39)
[2024-01-29] MEDS: SODIUM CHLORIDE RT SOL 0.9% 3 ML NEBU INH (00:18)
[2024-01-29] MEDS: HEPARIN SOD INJ 5000 UNIT/ML VIAL SC ×3 (05:22→21:42)
[2024-01-29 06:01] LABS: Basophils # (Auto) 0.1 Thou/mm3 (0.0-0.2); Basophils % (Auto) 0 % (0-2.5); Eosinophils # (Auto) 0.6 Thou/mm3 (0.0-0.5); Eosinophils % (Auto) 4 % (0-10); Hematocrit 26.1 % (41.0-53.0); Immature Granulocytes % (Auto) 1 % (0-0); Immature Granulocytes Auto 0.09 Thou/mm3 (0.00-0.00); Lymphocytes # (Auto) 1.4 Thou/mm3 (1.0-4.8); Lymphocytes % (Auto) 8 % (10-50); Mean Corpuscular HGB Conc 30.7 g/dl (31.0-37.0); Mean Corpuscular Hemoglobin 25.5 pg (25.0-35.0); Mean Corpuscular Volume 83 fL (80-100); Monocytes # (Auto) 1.1 Thou/mm3 (0.0-0.8); Monocytes % (Auto) 6 % (0-12); Neutrophils # (Auto) 14.3 Thou/mm3 (1.8-7.7); Neutrophils % (Auto) 81 % (37-80); Nucleated Red Blood Cell % 0 /100 WBC (0); Platelet Count 421 Thou/mm3 (140-440); RDW Standard Deviation 43.8 fL (35.1-43.9); Red Blood Count 3.14 Miln/mm3 (4.50-5.90); White Blood Count 17.5 Thou/mm3 (3.8-10.6)
[2024-01-29 06:22] LABS: Alanine Aminotransferase 15 U/L (10-49); Albumin, Serum 3.4 gm/dL (3.4-4.8); Albumin/Globulin Ratio 0.9 (1.2-2.2); Alkaline Phosphatase 157 U/L (46-116); Anion Gap 9 (7-16); Aspartate Amino Transferase 12 U/L (0-34); BUN/Creatinine Ratio 24 Ratio (12-20); Bilirubin,Total 0.4 mg/dL (0.3-1.2); Blood Urea Nitrogen 61 mg/dL (9-23); Calcium 8.3 mg/dL (8.3-10.6); Calcium (Corrected) 8.8 mg/dL (8.5-10.1); Carbon Dioxide 23.3 mMol/L (20.0-31.0); Chloride 108 mMol/L (98-107); Creatinine (Component) 2.5 mg/dL (0.6-1.3); Globulin 3.6 gm/dL (2.3-3.5); Glucose 77 mg/dL (74-106); Magnesium 2.3 mg/dL (1.6-2.6); Osmolality,Calculated 295 (275-295); Phosphorous 4.3 mg/dL (2.4-5.1); Potassium 4.3 mMol/L (3.4-5.1); Sodium 140 mMol/L (136-145); eGFR 28 See Note
--- NOTE | 2024-01-29 08:39 | ESPR_ITS ---
Documentation for date of: 01/29/24 Subjective Subjective Interval history: Patient is Salvadorean-speaking only and interaction facilitated by healthcare historical interpreter Patient was seen and examined at bedside this AM. No acute exents overnight. Patient tolerating diet, adequate urine output and mentation is at baseline. Patient endorses improvement of SOB and denies any chest pain/pressure currently Patient currently on IV diuresis with Bumex 2 Mg IV twice daily. Fluid balance of -150 cc in past 24 hours. Continue diuresis with goal of 1?2 L per day Patient still continues to be hypertensive with SBP's between 140s and 160s overnight For better blood pressure control and additional diuresis recommend Bumex 2 Mg IV x 1 today. Pleural fluid culture from 01/25 grew Staphylococcus hemolyticus. Yesterday patient had therapeutic paracentesis to the right lung and 1950 cc of pleural fluid was removed. Fluid analysis confirmed a transudative effusion. Coreg dose was decreased to 3.125 p.o. twice daily from 6.25 p.o. twice daily as beta-blockers are contraindicated in severe CHF exacerbation. Patient was started on hydralazine 100 mg p.o. 3 times daily for better blood pressure control as he is also CKD stage IIIb Continue amlodipine 10 mg p.o. daily Potassium 4.3 and magnesium 2.3. Continue to maintain potassium greater than 4 and magnesium greater than 2 at all times to prevent any arrhythmias. Exam Vital Signs Temp Pulse Resp BP Pulse Ox O2 Del Method O2 Flow Rate 98.7 F 81 19 151/83 H 95 Oxy Mask 5 01/29/24 04:41 01/29/24 06:24 01/29/24 06:24 01/29/24 04:41 01/29/24 06:24 01/29/24 04:41 01/29/24 04:41 FiO2 45 01/29/24 06:24 Narrative Exam Constitutional Alert, oriented x 3 and Comfortable. On 2 L O2 via NC. Can speak full sentences HEENT Vision grossly intact. Patent nares. Trachea midline Respiratory Chest normal on inspection and crackles from mid to lower lobes B/L. Bandage on left and right back from thoracentesis noted Cardiovascular S1 and S2 audible, RRR. No murmurs carotid bruit. No gross JVD. Abdominal Soft,obese and non tender to palpation in all quadrants. BS + Genitourinary No bladder tenderness, no flank pain. Normal to palpation. No scrotal edema Musculoskeletal Extremities tone within normal limits. 3+ LE edema up to knees B/L. 2+ Edema of thighs b/l and sacral edema. Bandage noted on R foot Neurological CN II - XII grossly intact. Extremity motor and sensation grossly intact. Skin Warm, dry and intact. No apparent lesions. Psychiatric Patient has good affect, is cooperative Objective Labs 01/30/24 07:39 01/30/24 06:01 Labs: Laboratory Results - last 24 hr 01/28/24 01/28/24 01/29/24 09:35 13:38 04:40 WBC 17.5 H D RBC 3.14 L Hgb 8.0 L Hct 26.1 L MCV 83 MCH 25.5 MCHC 30.7 L RDW Std Deviation 43.8 Plt Count 421 Neut % (Auto) 81 H Lymph % (Auto) 8 L Sharp % (Auto) 6 Eos % (Auto) 4 Baso % (Auto) 0 Neut # (Auto) 14.3 H Lymph # (Auto) 1.4 Sharp # (Auto) 1.1 H Eos # (Auto) 0.6 H Baso # (Auto) 0.1 Immature Gran # (Auto) 0.09 H Absolute Nucleated RBC 0.00 Immature Gran % 1 H Nucleated RBC % 0 Sodium 140 Potassium 4.3 Chloride 108 H Carbon Dioxide 23.3 Anion Gap 9 BUN 61 H Creatinine 2.5 H Estim Creat Clear Calc 33.0 L eGFR 28 L BUN/Creatinine Ratio 24 H Glucose 77 Calculated Osmolality 295 Calcium 8.3 Corrected Calcium 8.8 Phosphorus 4.3 Magnesium 2.3 Total Bilirubin 0.4 AST 12 ALT 15 Alkaline Phosphatase 157 H Total Protein 7.0 Albumin 3.4 Globulin 3.6 H Albumin/Globulin Ratio 0.9 L Pleural Color Yellow Pleural Appearance Hazy Pleural WBC 253 Pleural RBC 1000 Pleural Polynuclear WBC 2 Pleural Mononuclear WBC 98 Pleural Total Protein 2.2 Pleural LDH 87 Pleural Glucose 143 Pleural Amylase < 20 Coccidioides IgM Ab Negative ABG Interpretation ABG results: 01/25/24 01/25/24 01/26/24 19:50 20:13 03:33 ABG pH Cancelled 7.36 7.36 ABG pCO2 Cancelled 39 39 ABG pO2 Cancelled 53 L* 77 L D ABG HCO3 Cancelled 22 22 ABG O2 Saturation Cancelled 87 L 96 ABG Base Excess Cancelled -3 -3 Quality Measures Quality Measures none Assessment & Plan Assessment Current Active Medications: Generic Name Dose Route Start Last Admin Trade Name Yoan PRN Reason Stop Dose Admin Acetaminophen 650 mg 01/24/24 19:40 Acetaminophen 325 Mg Tablet PO 02/23/24 19:39 Q6H PRN Fever >101.5 Amlodipine Besylate 10 mg 01/25/24 09:00 01/28/24 08:39 Amlodipine Besylate 5 Mg Tablet PO 02/24/24 08:59 10 mg QDAY ANAMARIA Administration Atorvastatin Calcium 40 mg 01/27/24 21:00 01/28/24 21:03 Atorvastatin Calcium 20 Mg Tablet PO 02/26/24 20:59 40 mg HS ANAMARIA Administration Bumetanide 2 mg 01/26/24 09:00 01/28/24 21:03 Bumetanide Inj 0.25 Mg/Ml Vial 4 Ml IVP 02/25/24 08:59 2 mg BID ANAMARIA Administration Carvedilol 3.125 mg 01/28/24 17:30 01/28/24 18:12 Carvedilol 3.125 Mg Tablet PO 02/27/24 17:29 3.125 mg BIDWM ANAMARIA Administration Dextrose 25 ml 01/24/24 19:42 Dextrose 50%-Water Inj 50 Ml Syringe IV 02/23/24 19:41 Q15MIN PRN BG 50-70 responsive npo pt Dextrose 50 ml 01/24/24 19:42 Dextrose 50%-Water Inj 50 Ml Syringe IV 02/23/24 19:41 Q15MIN PRN BG <50 OR BG <70 & pt unresponsive Glucagon 1 mg 01/24/24 19:42 Glucagon Inj 1 Mg Vial IM Q15MIN PRN BG <70, and no IV access Heparin Sodium (Porcine) 5,000 unit 01/24/24 22:00 01/29/24 05:22 Heparin Sod Inj 5000 Unit/Ml Vial SC 02/07/24 21:59 5,000 unit Q8HR ANAMARIA Administration Hydralazine HCl 100 mg 01/28/24 08:15 01/29/24 00:04 Hydralazine Hcl 25 Mg Tablet PO 02/27/24 08:14 100 mg Q8H ANAMARIA Administration Protocol Cefepime HCl 1 gm/ Sodium 50 mls @ 100 mls/hr 01/25/24 11:15 01/28/24 08:41 Chloride IV 02/01/24 11:14 100 mls/hr QDAY ANAMARIA Administration Insulin Glargine 10 unit 01/25/24 09:00 01/28/24 08:41 Insulin Glargine (Lantus) 5 Unit/0.05 Ml (Per 5 Units) SC 02/24/24 08:59 10 unit QDAY ANAMARIA Administration Insulin Human Regular 0 unit 01/24/24 21:00 01/28/24 21:04 Insulin Hum Regular 1 Unit/0.01 Ml (Per Unit) SC 02/23/24 20:59 Not Given ACHS ANAMARIA Protocol Ipratropium [place] 0.5 mg 01/24/24 21:01 01/28/24 16:33 Ipratropium Rt 0.5 Mg/ 2.5 Ml Nebu INH 02/23/24 21:00 0.5 mg Q6HRRT PRN Administration SHORTNESS OF BREATH OR WHEEZE Protocol Levalbuterol HCl 1.25 mg 01/25/24 01:00 01/29/24 06:22 Levalbuterol Rt 1.25 Mg/0.5 Ml Nebu INH 02/24/24 00:59 1.25 mg Q6HRRT ANAMARIA Administration Ondansetron HCl 4 mg 01/25/24 05:02 01/25/24 05:11 Ondansetron Inj 2 Mg/Ml Inj 2 Ml IV 02/24/24 05:01 4 mg Q6HR PRN Administration NAUSEA OR VOMITING Protocol Sodium Chloride 3 ml 01/24/24 21:01 01/29/24 00:18 Sodium Chloride Rt Silvina 0.9% 3 Ml Nebu INH 02/23/24 21:00 3 ml Q6HRRT PRN Administration SOLN Protocol Plan Patient is a 63-year-old male with a past medical history significant for essential hypertension for more than 20 years, hyperlipidemia does not appear to be statin at home, insulin-dependent diabetes mellitus type 2 [6.2] more than 30 years and CKD stage 3 B. Does not have a primary care doctor. Patient presented to the ED on 01/23 with a chief complaint of SOB and chest discomfort for 1 week. Cardiology was consulted for acute decompensated heart failure. 1. Acute respiratory failure with hypoxia Secondary to 2. Anasarca - Possible Acute decompensated heart failure with preserved ejection fraction [50-55%] 3. B/L pleural effusions On admission patient was SOB at rest associated with chest discomfort for the past week which worsened the day of admission. BNP was elevated at 671 and troponin were negative on admission. Patient's home diuretic hydrochlorothiazide 50 Mg p.o. daily and furosemide 20 Mg p.o. daily. Chest x-ray showed moderate vascular congestion with bilateral pleural effusion and possible superimposed lower lobe consolidation bilateral. EKG showed sinus rhythm rate 95 NYHA stage C class IV Transthoracic echocardiogram completed on 01/26/2024 findings include: Normal LV size and function. Estimated EF 50-55% Normal RV size and function. Trace MR, TR. Left pleural effusion present. Previous echocardiogram from 10/06/2023: Normal LV size and function. Stage I diastolic dysfunction. Estimated EF 60-65%. Initially patient was diuresed with Lasix 40 Mg IV daily but was minimally responsive and was eventually switched to Bumex 2 Mg IV twice daily with better response. Patient also had therapeutic/diagnostic Left thoracentesis done 01/25 for bilateral large pleural effusion. Approximately 600 cc of straw-colored fluid was drained and pleural fluid analysis was significant for transudative picture confirming etiology of CHF. Fluid balance of -150 cc in past 24 hours. Continue diuresis with goal of 1?2 L per day. Patient still continues to be hypertensive with SBP's between 140s and 160s overnight Yesterday patient had therapeutic paracentesis to the right lung and 1950 cc of pleural fluid was removed. Fluid analysis confirmed a transudative effusion. Pleural fluid culture from 01/25 grew Staphylococcus hemolyticus. Plan: ? Strict input output charting ? 2 g sodium restricted diet ? 1500 cc a day fluid restriction ? Aim for diuresis of 1?2 L per day - Beta-blockers contraindicated in severe CHF exacerbation, can decrease dosage or hold at this time. - Coreg dose was decreased to 3.125 p.o. twice daily from 6.25 p.o. twice daily on 01/27 ? Continue diuresis with Bumex 2 Mg IV twice daily - Recommend additional dose of Bumex 2mg IV x 1 today - Recommend goal-directed medical therapy for heart failure. Patient may not be able to start Entresto due to his CKD but can start spironolactone at a later time. Patient also appears to be on SGLT2 as part of his home medication which can also be restarted on discharge. ? Maintain potassium greater than 4 and Mg greater than 2 at all times to prevent any arrhythmias. 4. Essential hypertension Unsure of patient's home medication as he cannot recall the names and medication reconciliation not completed. It appears he might have been on amlodipine 10 Mg p.o. daily, furosemide 20 Mg p.o. daily and hydrochlorothiazide 50 Mg p.o. daily and Coreg 6.25 Mg p.o. twice daily. On admission patient's BP 175/85 Patient still continues to be hypertensive with SBP's between 140s and 160s overnight Plan: ? Recommend to continue amlodipine 10 Mg p.o. daily - Recommend to continue hydralazine 100 mg p.o. 3 times daily for better blood pressure control as he is also CKD stage IIIb - Recommend excellent control of blood pressure with systolic less than 140 mmHg. 5. Hyperlipidemia Upon chart review patient's last lipid panel from 10/05/2023 showed triglycerides 227, cholesterol 148, LDL 86. Patient does not appear to have been on a statin at home. Plan: ? Recommend high intensity statin, atorvastatin 40 Mg p.o. at bedtime 6. Sepsis secondary to community-acquired pneumonia. On admission patient met SIRS 2/4. RR 24 and WBC 15.4. Chest x-ray showed bilateral lower lobe consolidation as source of infection. Procalcitonin was within normal limits on admission as well as lactic acid level. Patient did not have any fever during visit. Sputum Gram stain done on 01/25 showed 2+ GPC and rare WBCs, sputum culture still pending. Patient currently hypotensive with BP 151/86 and similar trend over the course of admission, no concern for hypotension at this time. Patient was treated with 2 days of azithromycin and Rocephin IV as well as vancomycin IV for 2 days. Patient is currently treated with cefepime. Blood cultures are currently pending with preliminary report no bacterial growth after 48 hours. Plan: ? Continue management as per primary team 7. JOSE MARIA on CKD stage IIIb Patient's baseline CR between 1.9?2. On admission patient CR 2.8. Etiology likely prerenal in the setting of CHF exacerbation. Continue management as per primary team. 8. Insulin-dependent diabetes mellitus type 2 [6.2] Patient had diabetes mellitus for the past 30 years and currently on insulin, empagliflozin/metformin and Ozempic at home. Most recent HbA1c 6.2% from this admission. Continue management as per primary team 9. Right foot osteomyelitis s/p transmetatarsal amputation [September 2023] Patient has history of poorly controlled diabetes in the past leading to right foot ulcer and eventual osteomyelitis leading to amputation earlier this year. On this admission foot x-ray showed cortical bone destruction at the end of the first metatarsal as well as distal second metatarsal and proximal phalanx second digit. Negative for gas gangrene or acute osteomyelitis. Patient was evaluated by general surgeon, Dr Serna who assessed patient to have a superficial ulcer and not acute osteomyelitis. Foot ulcer unlikely source of patient's sepsis. 10. Normocytic anemia On admission patient's Hb 8.9, from chart review baseline appears to be between 10?11. DDx: Iron deficiency anemia, anemia of chronic disease, thalassemia, sideroblastic anemia, lead poisoning. Iron panel from this admission showed iron low 18, TIBC low 243 and ferritin within normal limits 132 Etiology possibly multifactorial iron deficiency also anemia of chronic disease secondary to CKD. Recommend IV iron once sepsis resolves and Epogen on this admission for optimization of Hb. 11. Possible scabies Patient states that multiple residents at his rehab center were recently diagnosed with scabies. Patient also has multiple excoriations on his back and upper extremities. Patient was treated with permethrin x 1 on 01/26/2003/04/2024 and contact precautions were initiated. Continue rest of management as per primary team. We are grateful to be able to participate in Mr. Sandoval' care. Thank you for the consult Plan of care discussed with attending Dehydrogenation Converter Helper, Dr Christie Dominguez MD PGY 1 Attending Provider Attestation/Addendum I have personally seen and examined the patient separately on the above date of service and discussed the plan of care with the resident. I reviewed the resident Dr. Dominguez consultation progress note and agree with the resident findings and plan in the note above and have also edited the documentation to reflect my findings and plan. Kyle Soriano M.D. Interventional Cardiology
[2024-01-29] MEDS: CEFEPIME INJ 1 GM in SODIUM CHLORIDE 0.9% (P) 50 ML IV (09:06)
[2024-01-29] MEDS: BUMETANIDE INJ 0.25 MG/ML VIAL 4 ML 2 MG IVP ×2 (09:10→21:42)
[2024-01-29] MEDS: carVEDILOL 3.125 MG TABLET PO ×2 (09:12→17:59)
[2024-01-29] MEDS: amLODIPine BESYLATE 5 MG TABLET 10 MG PO (09:13)
[2024-01-29] MEDS: INSULIN GLARGINE (Lantus) 5 UNIT/0.05 ML (PER 5 UNITS) 10 UNIT SC (09:26)
--- NOTE | 2024-01-29 10:24 | PC.SS ---
SUPPLY CHAIN CONSULTANT fielded phone call from [facility] staff, Urmila ; to inform transition social worker availability to assist with patient's discharge needs.
[2024-01-29] MEDS: LEVOFLOXACIN/D5W 750MG IVPB 750 MG/150 ML BAG 100 MG IV (11:19)
--- NOTE | 2024-01-29 12:15 | PC.NURSE ---
talked to [facility] infection nurse regarding pt.was treated with scabies on 01/25/24,pt. now has generalize dry scabbing,stated pt. can be off contact precaution,notified ,contact precaution stopped.
[2024-01-29 13:36] LABS: Cocci Serology, IgG Negative (Negative)
--- NOTE | 2024-01-29 13:36 | XR_ITS ---
Examination: Retroperitoneal ultrasound, complete Technique: Multiple high resolution grayscale images of the retroperitoneum obtained, including kidneys and bladder. Exam date and time:January 29, 2024 1408 hours INDICATIONS: Acute renal insufficiency on laboratory examination today FINDINGS: Right kidney 13.0 x 6.6 x 5.5 cm cortex 2.5 cm Left kidney 12.2 x 6.4 x 5.5 cm cortex 2.1 cm Moderate bilateral renal parenchymal scar formation No hydronephrosis No bladder mass or bladder calculi Bladder prevoid: 205 cc unable to void Prostate volume 34.4 cc no prostate nodules IMPRESSION: Moderate bilateral renal parenchymal scar formation, no hydronephrosis
--- NOTE | 2024-01-29 14:05 | ESPR_ITS ---
Documentation for date of: 01/29/24 Subjective Subjective Interval history: Patient was seen and examined at the bedside. No acute overnight events. He was given additional dose of Bumex today. His antibiotics regimen was changed from cefepime to levofloxacin. Nephrology was consulted for rising creatinine. Will continue current management and monitor patient. Exam Vital Signs Temp Pulse Resp BP Pulse Ox O2 Del Method O2 Flow Rate 97.6 F 83 15 152/80 H 99 Nasal Cannula 4 01/29/24 12:00 01/29/24 12:39 01/29/24 12:39 01/29/24 12:00 01/29/24 12:39 01/29/24 12:00 01/29/24 12:39 FiO2 45 01/29/24 06:24 Narrative Exam Gen: Well-developed male. HEENT: NCAT, PERRLA, EOMI, MMM, anicteric conjunctivae. CVS: normal S1 and S2. RRR. No M/R/G. Resp: decreased breath sounds B/L with minimal crackles. No rhonchi, rales or wheezing. Abd: soft, non-tender, non-distended. BS+ in all 4 quadrants. MSK: Good ROM in BUE & BLE. No rash. 2+ edema BLE. Rt first toe s/p amputation with ulcer-like wound and Rt foot wound. Multiple excoriations in back and BUE. Neuro: CN II-XII grossly intact. Strength 5/5 in BUE & BLE. Alert and oriented x3. Objective Labs 02/04/24 10:51 02/04/24 10:51 Labs: Laboratory Results - last 24 hr 01/28/24 01/28/24 01/29/24 09:35 13:38 04:40 WBC 17.5 H D RBC 3.14 L Hgb 8.0 L Hct 26.1 L MCV 83 MCH 25.5 MCHC 30.7 L RDW Std Deviation 43.8 Plt Count 421 Neut % (Auto) 81 H Lymph % (Auto) 8 L [place] % (Auto) 6 Eos % (Auto) 4 Baso % (Auto) 0 Neut # (Auto) 14.3 H Lymph # (Auto) 1.4 [place] # (Auto) 1.1 H Eos # (Auto) 0.6 H Baso # (Auto) 0.1 Immature Gran # (Auto) 0.09 H Absolute Nucleated RBC 0.00 Immature Gran % 1 H Nucleated RBC % 0 Sodium 140 Potassium 4.3 Chloride 108 H Carbon Dioxide 23.3 Anion Gap 9 BUN 61 H Creatinine 2.5 H Estim Creat Clear Calc 33.0 L eGFR 28 L BUN/Creatinine Ratio 24 H Glucose 77 Calculated Osmolality 295 Calcium 8.3 Corrected Calcium 8.8 Phosphorus 4.3 Magnesium 2.3 Total Bilirubin 0.4 AST 12 ALT 15 Alkaline Phosphatase 157 H Total Protein 7.0 Albumin 3.4 Globulin 3.6 H Albumin/Globulin Ratio 0.9 L Pleural Color Yellow Pleural Appearance Hazy Pleural WBC 253 Pleural RBC 1000 Pleural Polynuclear WBC 2 Pleural Mononuclear WBC 98 Pleural Total Protein 2.2 Pleural LDH 87 Pleural Glucose 143 Pleural Amylase < 20 [place]occid[place]ides IgG Ab Negative Coccidioides IgM Ab Negative ABG Interpretation ABG results: 01/25/24 01/25/24 01/26/24 19:50 20:13 03:33 ABG pH Cancelled 7.36 7.36 ABG pCO2 Cancelled 39 39 ABG pO2 Cancelled 53 L* 77 L D ABG HCO3 Cancelled 22 22 ABG O2 Saturation Cancelled 87 L 96 ABG Base Excess Cancelled -3 -3 Quality Measures Quality Measures none Assessment & Plan Assessment Current Active Medications: Generic Name Dose Route Start Last Admin Trade Name Freq PRN Reason Stop Dose Admin Acetaminophen 650 mg 01/24/24 19:40 Acetaminophen 325 Mg Tablet PO 02/23/24 19:39 Q6H PRN Fever >101.5 Atorvastatin Calcium 40 mg 01/27/24 21:00 01/28/24 21:03 Atorvastatin Calcium 20 Mg Tablet PO 02/26/24 20:59 40 mg HS ANAMARIA Administration Bumetanide 2 mg 01/26/24 09:00 01/29/24 09:10 Bumetanide Inj 0.25 Mg/Ml Vial 4 Ml IVP 02/25/24 08:59 2 mg BID ANAMARIA Administration Carvedilol 3.125 mg 01/28/24 17:30 01/29/24 09:12 Carvedilol 3.125 Mg Tablet PO 02/27/24 17:29 3.125 mg BIDWM ANAMARIA Administration Dextrose 25 ml 01/24/24 19:42 Dextrose 50%-Water Inj 50 Ml Syringe IV 02/23/24 19:41 Q15MIN PRN BG 50-70 responsive npo pt Dextrose 50 ml 01/24/24 19:42 Dextrose 50%-Water Inj 50 Ml Syringe IV 02/23/24 19:41 Q15MIN PRN BG <50 OR BG <70 & pt unresponsive Glucagon 1 mg 01/24/24 19:42 Glucagon Inj 1 Mg Vial IM Q15MIN PRN BG <70, and no IV access Heparin Sodium (Porcine) 5,000 unit 01/24/24 22:00 01/29/24 05:22 Heparin Sod Inj 5000 Unit/Ml Vial SC 02/07/24 21:59 5,000 unit Q8HR ANAMARIA Administration Hydralazine HCl 100 mg 01/28/24 08:15 01/29/24 09:13 Hydralazine Hcl 25 Mg Tablet PO 02/27/24 08:14 100 mg Q8H ANAMARIA Administration Protocol Levofloxacin/Dextrose 750 mg in 150 mls @ 100 mls/hr 01/29/24 10:45 01/29/24 11:19 Levaquin Ivpb IV 02/05/24 10:44 100 mls/hr Q48H ANAMARIA Administration Insulin Glargine 10 unit 01/25/24 09:00 01/29/24 09:26 Insulin Glargine (Lantus) 5 Unit/0.05 Ml (Per 5 Units) SC 02/24/24 08:59 10 unit QDAY ANAMARIA Administration Insulin Human Regular 0 unit 01/24/24 21:00 01/29/24 11:35 Insulin Hum Regular 1 Unit/0.01 Ml (Per Unit) SC 02/23/24 20:59 Not Given ACHS [facility] Protocol Ipratropium [place] 0.5 mg 01/24/24 21:01 01/28/24 16:33 Ipratropium Rt 0.5 Mg/ 2.5 Ml Nebu INH 02/23/24 21:00 0.5 mg Q6HRRT PRN Administration SHORTNESS OF BREATH OR WHEEZE Protocol Levalbuterol HCl 1.25 mg 01/25/24 01:00 01/29/24 12:39 Levalbuterol Rt 1.25 Mg/0.5 Ml Nebu INH 02/24/24 00:59 1.25 mg Q6HRRT ANAMARIA Administration Ondansetron HCl 4 mg 01/25/24 05:02 01/25/24 05:11 Ondansetron Inj 2 Mg/Ml Inj 2 Ml IV 02/24/24 05:01 4 mg Q6HR PRN Administration NAUSEA OR VOMITING Protocol Sodium Chloride 3 ml 01/24/24 21:01 01/29/24 00:18 Sodium Chloride Rt Silvina 0.9% 3 Ml Nebu INH 02/23/24 21:00 3 ml Q6HRRT PRN Administration SOLN Protocol Plan 63-year-old male with past medical history of HFpEF (EF 50 to 55%) DM2, hyperlipidemia, hypertension, prior osteomyelitis of right first toe s/p amputation was admitted to the hospital on 01/24/2024 for acute hypoxic respiratory failure secondary to acute decompensated heart failure exacerbation and sepsis likely secondary to pneumonia versus osteomyelitis. #Acute decompensated heart failure exacerbation. #HFpEF (EF 50 to 55% 01/2024). #Acute hypoxic respiratory failure. #Bilateral pleural effusions. ?Patient came in with shortness of breath, bilateral lower extremity edema, and orthopnea ?Patient's last echo on 09/2023 showed an ejection fraction of 60 to 65% ?Chest x-ray 01/24/24 showed moderate heart failure ? BNP 671 -Echo showed EF 50-55% -Pleural fluid was transudative using lights criteria, most likely due to HF exacerbation. -thoracentesis L side on 01/26/2024 Plan: ?Continue IV Bumex 2 mg twice daily, additional Bumex dose given. -continue Carvedilol to 3.125mg BID ?Strict CHAR's ?Fluid restrictions 1500 mL daily ?Daily weights ?Keep potassium above 4 and magnesium above 2 -Low sodium diet -Cardiology consulted (Dr. Soriano), appreciate recommendations ?Will continue to monitor #Sepsis likely secondary to pneumonia versus osteomyelitis #Pneumonia #Osteomyelitis ?Initially patient met SIRS criteria 2 out of 4 with leukocytosis and tachypnea ?Chest x-ray showed bilateral pneumonia and pleural effusions -CXR 01/27/2024 showed extensive ANGEL PNA ?Right foot x-ray showed osteomyelitis in the amputated first metatarsal and second metatarsophalangeal joint ?WBC 11.2 ?DC's cefepime [01/25/2024?01/29/2024] -DC's vancomycin [01/25/2024?01/27/2024] Plan: -started on levofloxacin [01/28- ]. ?Breathing treatments as needed -Wound care ?Referral to physical therapy ?General Surgery consulted (Dr. Serna), recommended no surgery at the moment and to continue antibiotics #JOSE MARIA on CKD ?Patient has some underlying CKD since last year with GFR in the high 30s to 40s -Baseline Cr 1.9 and was 2.8 on admission -Likely prerenal given heart failure and volume overload status ?BUN 64 and creatinine 2.6 today Plan: ?Avoid nephrotoxic agents ? Renally dose medications -Continue Diuresis with bumex 2mg BID ? Will continue to monitor #Scabies ? Patient stated that multiple residents in his rehab center were diagnosed with scabies. ?Patient has multiple excoriations on his entire back and bilateral upper extremities. Plan: ? Permethrin x 1 done on 01/26/2024 ? Contact precautions ?will continue to monitor #Normocytic normochromic anemia ?Patient has a Hx of normocytic anemia with Hgb 10.4 prior to admission - Hgb 7.5 Plan: ?Will transfuse if hemoglobin less than 7 ?Will continue to monitor #Hx of DM2 ?A1c 6.2 on 01/25/2024 Plan: ?ISS ? Accu-Cheks and hypoglycemia protocol ? Will continue to monitor #Hx of hyperlipidemia ?Triglycerides 227, cholesterol 148, LDL 86, HDL 17 on 10/05/2023 Plan: ?Continue atorvastatin 40 mg #Hx of HTN ?Continue amlodipine 10 mg daily -Started hydralazine 100mg every 8 hours Disposition: Patient in telemetry continuing antibiotic for Sepsis. Diet: carb consistent. GI prophylaxis: not indicated. DVT prophylaxis: Heparin sc . Code: Full . Plan of care discussed with attending Dr. Huynh. Jc Barrera MD, PGY 2. Disclaimer: This note was dictated by speech recognition. Minor errors in wildlife refuge specialist may be present due to voice recognition software. Attending Provider Attestation/Addendum 43-year-old male with multiple comorbidities including type 2 diabetes mellitus, hypertension, hyperlipidemia and heart failure with preserved EF who was admitted on 01/24/2024 with shortness of breath found to have acute sided heart failure exacerbation with bilateral pleural effusion IV diuretic therapy. In addition, patient also found to have osteomyelitis patient has a PICC line in place and IV antibiotic therapy until February 27, 2024. I reviewed above note and agree with findings and plans. I have also personally examined the patient with medicine team and went over assessment and plan with medical team including international editorial producer and resident physician.
[2024-01-29 14:13] LABS: Vitamin D 25 Hydroxy Total 23.5 ng/mL (7.3-40.2)
--- NOTE | 2024-01-29 15:17 | PD.RESCONSUL ---
[facility] Data of Consult Consult date: 01/29/24 Requesting Physician: Barrett Romano MD Admitting Provider: Randy Cruz MD Attending Provider: Regan Main MD Primary Care Provider: Physician No Primary/Family Consult Narrative Reason for consult: Worsening JOSE MARIA on CKD. History of present illness: Mir. Sandoval is a 63 y/o M with PMHx significant for type 2 diabetes mellitus, hyperlipidemia, and hypertension who presents with shortness of breath and chest discomfort. Symptoms started approximately a week ago but acutely worsened overnight to the point where he would get short of breath after just a few steps, prompting him to come to the ED. Endorses orthopnea, PND, and bilateral lower extremity edema. Regarding his chest pain, describes it as substernal, pressure-like, worse with activity, and does not subside with rest. 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 Previously admitted and treated for osteomyelitis of right hallux on 09/2023 and underwent transmetatarsal amputation discharged with 7-day course of doxycycline that patient completed. Patient was hypertensive at 175/85 and hypoxic 86% on room air increased to 98% on 8 L oxy mask in the ED. Chest x-ray showed vascular congestion, bilateral pleural effusions. Patient received DuoNebs, ceftriaxone, and 40 mg Lasix in the ED. Patient admitted for acute hypoxic respiratory failure secondary to acute decompensated heart failure exacerbation and sepsis likely secondary to pneumonia versus osteomyelitis. Patient labs on admission showed BUN 56, creatinine 2.8, eGFR 25 compared to baseline BUN 40, baseline creatinine 1.9, baseline eGFR 39. Patient has been treated for presumptive prerenal JOSE MARIA due to volume overload with Bumex 2 mg IV twice daily, patient has not shown improvement in renal function. Urinalysis shows nephrotic range proteinuria 3+. Nephrology consulted for worsening JOSE MARIA on CKD despite diuretic treatment. Patient seen and examined on the floors. Patient resting in bed, appears mildly distressed and chronically ill. Patient has clear signs of fluid overload: Anasarca, crackles on lung auscultation. Held patient's amlodipine due to risk of increased edema. At time of exam labs showed BUN 61, creatinine 2.5, eGFR 28. Additional urine studies ordered. Renal ultrasound performed, showed moderate bilateral renal parenchymal scar formation, no hydronephrosis. cc:: cc: Barrett Romano MD Review of Systems Review of Systems Systems Reviewed: All systems reviewed, normal except as documented Past Medical History Past Medical History NEUROLOGIC: Negative Seizures CARDIAC: Positive Edema, Cellulitis and Hypertension; Negative Cardiac Disorders or Congestive Heart Failure RESPIRATORY: Positive Respiratory Disorders; Negative Chronic Obstructive Pulmonary Disease (COPD) or Asthma GENITOURINARY: Negative Renal Disease ENDOCRINE: Positive Diabetes Mellitus Type 2; Negative Diabetes Mellitus Type 1 HEMATOLOGIC: Negative Sickle Cell Disease OTHER HISTORY: Positive Hospitalization; Negative Falls, Blood Transfusions, Blood Transfusion Reaction or Anesthesia Reactions Surgical History SURGICAL: Positive Amputation (Right first toe) Social History SMOKING STATUS: Never smoker SUBSTANCE USE: does not use Exam Vital Signs Temp Pulse Resp BP Pulse Ox O2 Del Method O2 Flow Rate 97.6 F 83 15 152/80 H 99 Nasal Cannula 4 01/29/24 12:00 01/29/24 12:39 01/29/24 12:39 01/29/24 12:00 01/29/24 12:39 01/29/24 12:00 01/29/24 12:39 FiO2 45 01/29/24 06:24 Narrative Exam PE: Gen: Well-developed and well-nourished. Appears mildly distressed. HEENT: NCAT, PERRLA, EOMI, MMM, anicteric conjunctivae. CVS: normal S1 and S2. RRR. No M/R/G. Resp: Bilateral crackles. Abd: Mildly tender, distended, anasarca MSK: Good ROM in BUE & BLE. Bilateral lower extremity edema with skin changes secondary to chronic PAD. Sacral edema. Neuro: CN II-XII grossly intact. Strength 5/5 in BUE & BLE. Alert and oriented x3. Psych: appropriate mood and affect. Results Labs 01/29/24 04:40 01/29/24 04:40 Labs: Short CBC 01/29/24 Range/Units 04:40 WBC 17.5 H D (3.8-10.6) Thou/mm3 Hgb 8.0 L (13.5-16.0) g/dL Hct 26.1 L (41.0-53.0) % Plt Count 421 (140-440) Thou/mm3 BMP 01/29/24 04:40 Sodium 140 Potassium 4.3 Chloride 108 H Carbon Dioxide 23.3 BUN 61 H Creatinine 2.5 H Glucose 77 Calcium 8.3 Liver Function 01/29/24 Range/Units 04:40 Total Bilirubin 0.4 (0.3-1.2) mg/dL AST 12 (0-34) U/L ALT 15 (10-49) U/L Alkaline Phosphatase 157 H (46-116) U/L Albumin 3.4 (3.4-4.8) gm/dL ABG Interpretation ABG results: 01/25/24 01/25/24 01/26/24 19:50 20:13 03:33 ABG pH Cancelled 7.36 7.36 ABG pCO2 Cancelled 39 39 ABG pO2 Cancelled 53 L* 77 L D ABG HCO3 Cancelled 22 22 ABG O2 Saturation Cancelled 87 L 96 ABG Base Excess Cancelled -3 -3 Quality Measures Quality Measures VTE prophylaxis Medications Home Medications and Allergies Home Medications ?Medication ?Instructions ?Recorded ?Confirmed ?Type clonidine HCl 0.1 mg tablet 0.1 mg PO BID 01/27/24 01/27/24 History furosemide 20 mg tablet (Lasix) 40 mg PO TID 01/27/24 01/27/24 History insulin glargine 100 unit/mL (3 15 unit subcut HS 01/27/24 01/27/24 History mL) subcutaneous pen (Lantus Solostar U-100 Insulin) Allergies Allergy/AdvReac Type Severity Reaction Status Date / Time No Known Allergies Allergy Verified 06/19/22 16:16 Visit Medications Acetaminophen (Acetaminophen 325 Mg Tablet) 650 mg PO Q6H PRN PRN Reason: Fever >101.5 Stop: 02/23/24 19:39 Atorvastatin Calcium (Atorvastatin Calcium 20 Mg Tablet) 40 mg PO HS ANAMARIA Stop: 02/26/24 20:59 Last Admin: 01/28/24 21:03 Dose: 40 mg Bumetanide (Bumetanide Inj 0.25 Mg/Ml Vial 4 Ml) 2 mg IVP BID ANAMARIA Stop: 02/25/24 08:59 Last Admin: 01/29/24 09:10 Dose: 2 mg Carvedilol (Carvedilol 3.125 Mg Tablet) 3.125 mg PO BIDWM ANAMARIA Stop: 02/27/24 17:29 Last Admin: 01/29/24 09:12 Dose: 3.125 mg Dextrose (Dextrose 50%-Water Inj 50 Ml Syringe) 25 ml IV Q15MIN PRN PRN Reason: BG 50-70 responsive npo pt Stop: 02/23/24 19:41 Dextrose (Dextrose 50%-Water Inj 50 Ml Syringe) 50 ml IV Q15MIN PRN PRN Reason: BG <50 OR BG <70 & pt unresponsive Stop: 02/23/24 19:41 Glucagon (Glucagon Inj 1 Mg Vial) 1 mg IM Q15MIN PRN PRN Reason: BG <70, and no IV access Heparin Sodium (Porcine) (Heparin Sod Inj 5000 Unit/Ml Vial) 5,000 unit SC Q8HR [facility] Stop: 02/07/24 21:59 Last Admin: 01/29/24 14:24 Dose: 5,000 unit Hydralazine HCl (Hydralazine Hcl 25 Mg Tablet) 100 mg PO Q8H [facility]; Protocol Stop: 02/27/24 08:14 Last Admin: 01/29/24 09:13 Dose: 100 mg Levofloxacin/Dextrose (Levaquin Ivpb) 750 mg in 150 mls @ 100 mls/hr IV Q48H [facility] Stop: 02/05/24 10:44 Last Admin: 01/29/24 11:19 Dose: 100 mls/hr Insulin Glargine (Insulin Glargine (Lantus) 5 Unit/0.05 Ml (Per 5 Units)) 10 unit SC QDAY [facility] Stop: 02/24/24 08:59 Last Admin: 01/29/24 09:26 Dose: 10 unit Insulin Human Regular (Insulin Hum Regular 1 Unit/0.01 Ml (Per Unit)) 0 unit SC ACHS [facility]; Protocol Stop: 02/23/24 20:59 Last Admin: 01/29/24 11:35 Dose: Not Given Ipratropium [place] (Ipratropium Rt 0.5 Mg/ 2.5 Ml Nebu) 0.5 mg INH Q6HRRT PRN; Protocol PRN Reason: SHORTNESS OF BREATH OR WHEEZE Stop: 02/23/24 21:00 Last Admin: 01/28/24 16:33 Dose: 0.5 mg Levalbuterol HCl (Levalbuterol Rt 1.25 Mg/0.5 Ml Nebu) 1.25 mg INH Q6HRRT [facility] Stop: 02/24/24 00:59 Last Admin: 01/29/24 12:39 Dose: 1.25 mg Ondansetron HCl (Ondansetron Inj 2 Mg/Ml Inj 2 Ml) 4 mg IV Q6HR PRN; Protocol PRN Reason: NAUSEA OR VOMITING Stop: 02/24/24 05:01 Last Admin: 01/25/24 05:11 Dose: 4 mg Sodium Chloride (Sodium Chloride Rt [place] 0.9% 3 Ml Nebu) 3 ml INH Q6HRRT PRN; Protocol PRN Reason: SOLN Stop: 02/23/24 21:00 Last Admin: 01/29/24 00:18 Dose: 3 ml Discontinued Medications Albuterol (Albuterol Rt 2.5 Mg/0.5 Ml Nebu) 5 mg INH X1 ONE Stop: 01/24/24 17:06 Last Admin: 01/24/24 17:28 Dose: 5 mg Albuterol/Ipratropium (Albuterol/Ipratropium (Duoneb) Rt [place] 3 Ml Nebu) 3 ml INH X1 ONE Stop: 01/24/24 18:39 Last Admin: 01/24/24 18:45 Dose: 3 ml Amlodipine Besylate (Amlodipine Besylate 5 Mg Tablet) 10 mg PO QDAY [facility] Stop: 02/24/24 08:59 Last Admin: 01/29/24 09:13 Dose: 10 mg Azithromycin (Azithromycin 250 Mg Tablet) 500 mg PO QDAY [facility]; Protocol Stop: 02/01/24 08:59 Last Admin: 01/25/24 07:54 Dose: 500 mg Bumetanide (Bumetanide Inj 0.25 Mg/Ml Vial 4 Ml) 2 mg IVP X1 ONE Stop: 01/25/24 19:51 Last Admin: 01/25/24 20:05 Dose: 2 mg Carvedilol (Carvedilol 3.125 Mg Tablet) 6.25 mg PO BIDWM [facility] Stop: 02/25/24 07:59 Last Admin: 01/27/24 16:55 Dose: 6.25 mg Furosemide (Furosemide Inj 10 Mg/Ml 4ml Vial) 40 mg IVP X1 ONE Stop: 01/24/24 19:20 Last Admin: 01/24/24 19:43 Dose: 40 mg Furosemide (Furosemide Inj 10 Mg/Ml 4ml Vial) 40 mg IVP BIDD [facility] Stop: 02/24/24 05:59 Last Admin: 01/25/24 18:31 Dose: 40 mg Furosemide (Furosemide Inj 10 Mg/Ml 4ml Vial) 40 mg IVP X1 ONE Stop: 01/25/24 14:14 Last Admin: 01/25/24 15:19 Dose: 40 mg Ceftriaxone Sodium/Dextrose (Rocephin/D5w 1gm Iv Premix) 50 mls @ 100 mls/hr IV X1 ONE Stop: 01/24/24 19:26 Last Infusion: 01/24/24 19:48 Dose: Infused Ceftriaxone Sodium/Dextrose (Rocephin/D5w 1gm Iv Premix) 50 mls @ 100 mls/hr IV 2100 ANAMARIA Stop: 02/01/24 20:59 Azithromycin 500 mg/ Sodium (Chloride) 250 mls @ 250 mls/hr IV QDAY [facility] Stop: 01/31/24 19:44 Last Admin: 01/25/24 06:49 Dose: Not Given Cefepime HCl 1 gm/ Sodium (Chloride) 50 mls @ 100 mls/hr IV QDAY [facility] Stop: 02/01/24 11:14 Last Admin: 01/29/24 09:06 Dose: 100 mls/hr Vancomycin/Sodium Chloride (Vancomycin/Ns 1 Gm Ivpb) 200 mls @ 120 mls/hr IV X1 ONE Stop: 01/25/24 13:09 Last Admin: 01/25/24 14:21 Dose: 120 mls/hr Vancomycin/Sodium Chloride (Vancomycin/Ns 1 Gm Ivpb) 200 mls @ 120 mls/hr IV QDAY@1000 ANAMARIA Stop: 02/02/24 09:59 Last Admin: 01/27/24 10:15 Dose: 120 mls/hr Ipratropium [place] (Ipratropium Rt 0.5 Mg/ 2.5 Ml Nebu) 1 mg INH X1 ONE Stop: 01/24/24 17:06 Last Admin: 01/24/24 17:29 Dose: 1 mg Labetalol HCl (Labetalol Inj 5 Mg/Ml Vial 20 Ml) 10 mg IVP X1 ONE Stop: 01/26/24 02:12 Last Admin: 01/26/24 02:22 Dose: 10 mg Permethrin (Permethrin Cr 5% 60 Gm Tube) 0 gm TOP X1 ONE Stop: 01/25/24 17:56 Last Admin: 01/25/24 20:09 Dose: 1 applicatio Permethrin (Permethrin Creme Rinse 60 Ml Btl) 0 ml TOP X1 ONE Stop: 01/26/24 13:50 Last Admin: 01/26/24 15:44 Dose: 1 applicatio Pharmacy Consult (Vancomycin Pharmacy To Dose 1 Each Each) 1 each IV QDAY PRN PRN Reason: CONSULT Stop: 02/24/24 11:14 Sodium Chloride (Sodium Chloride Rt [place] 0.9% 3 Ml Nebu) 3 ml INH PRN PRN PRN Reason: SOLN Stop: 02/23/24 17:04 Last Admin: 01/25/24 06:17 Dose: 3 ml Sodium Chloride (Sodium Chloride Rt 10% 15 Ml Nebu) 5 ml INH X1 ONE Stop: 01/26/24 07:57 Last Admin: 01/26/24 13:35 Dose: Not Given Sodium Polystyrene Sulfonate (Sod Polystyrene Sulfon Susp 15 Gm/60 Ml Btl) 30 gm PO X1 ONE Stop: 01/26/24 07:02 Last Admin: 01/26/24 07:16 Dose: 30 gm Assessment & Plan Plan 63 y/o M with PMHx significant for HFpEF (EF 50 to 55%) DM2, hyperlipidemia, hypertension, prior osteomyelitis of right first toe s/p amputation was admitted to the hospital on 01/24/2024 for acute hypoxic respiratory failure secondary to acute decompensated heart failure exacerbation and sepsis likely secondary to pneumonia versus osteomyelitis. #JOSE MARIA on CKD Patient has some underlying CKD since last year with GFR in the high 30s to 40s. Baseline Cr 1.9 and BUN 40, BUN 56 and creatinine 2.8 on admission. Suspect prerenal given heart failure and volume overload status. Kidney function continued to worsen despite treatment with diuresis. Nephrology consulted due to worsening JOSE MARIA on CKD. Urinalysis showed 3+ protein, nephrotic range. Renal ultrasound showed moderate bilateral renal parenchymal scar formation, no hydronephrosis. Plan: -Avoid nephrotoxic agents -Renally dose medications -Hold amlodipine -Strict I's and O's -Continue Diuresis with bumex 2mg BID -Will continue to monitor -Random urine total protein and urine creatinine pending #Acute decompensated heart failure exacerbation. #HFpEF (EF 50 to 55% 01/2024). #Acute hypoxic respiratory failure. #Bilateral pleural effusions. #Sepsis likely secondary to pneumonia versus osteomyelitis #Pneumonia #Osteomyelitis #Scabies #Normocytic normochromic anemia #Hx of DM2 #Hx of hyperlipidemia #Hx of HTN Management as per primary team Thank you for allow me to participate in the care of this patient. Plan of care discussed with attending Dr. Main. Les Godwin MD PGY-1 Attending Provider Attestation/Addendum Patient seen and examined with resident physician Dr. Godwin. Note reviewed, agree with findings and recommendations. Patient currently seen in telemetry. 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 Has hypertension, dyslipidemia for years. Do not recall which clinic he goes to. Home medications included amlodipine, clonidine, Lasix 40 mg p.o. 3 times daily, hydrocodone, Lantus. Clinically looks rather hypervolemic with significant anasarca. Suspect nephrotic syndrome from a progressive diabetes. Agree with diuretics. Had a long conversation with patient regarding diabetic nephropathy/fluid overload. Urine protein/creatinine ordered to quantify proteinuria. Anemia noted-probably related to underlying CKD. Iron, Procrit ordered. Intact PTH, vitamin D levels ordered. Renal ultrasound showed no hydronephrosis. Echocardiogram showed normal ejection fraction Echo card consistent with diastolic heart failure. Thank you Yovany for allowing me to participate in the care of Mr. Sandoval.
[2024-01-29] MEDS: INSULIN HUM REGULAR 1 UNIT/0.01 ML (PER UNIT) SC (16:53)
[2024-01-29] MEDS: ATORVASTATIN CALCIUM 20 MG TABLET 40 MG PO (21:42)
[2024-01-30] VITALS (16 sets, daily range): BP systolic 135–155; BP diastolic 61–89; PULSE 67–80; RESP 14–24; TEMP 36.6–36.9; O2SAT 94–100; BMI 34.4
[2024-01-30] MEDS: LEVALBUTEROL RT 1.25 MG/0.5 ML NEBU INH ×4 (00:27→19:19)
[2024-01-30] MEDS: HEPARIN SOD INJ 5000 UNIT/ML VIAL SC ×3 (05:35→21:21)
[2024-01-30 06:28] LABS: Basophils % (Auto) 0 % (0-2.5); Eosinophils # (Auto) 0.5 Thou/mm3 (0.0-0.5); Eosinophils % (Auto) 4 % (0-10); Hematocrit 22.6 % (41.0-53.0); Immature Granulocytes % (Auto) 1 % (0-0); Immature Granulocytes Auto 0.06 Thou/mm3 (0.00-0.00); Lymphocytes # (Auto) 1.8 Thou/mm3 (1.0-4.8); Lymphocytes % (Auto) 16 % (10-50); Mean Corpuscular HGB Conc 30.5 g/dl (31.0-37.0); Mean Corpuscular Hemoglobin 25.5 pg (25.0-35.0); Mean Corpuscular Volume 83 fL (80-100); Monocytes # (Auto) 1.1 Thou/mm3 (0.0-0.8); Monocytes % (Auto) 10 % (0-12); Neutrophils # (Auto) 7.8 Thou/mm3 (1.8-7.7); Neutrophils % (Auto) 69 % (37-80); Nucleated Red Blood Cell % 0 /100 WBC (0); Platelet Count 345 Thou/mm3 (140-440); RDW Standard Deviation 44.4 fL (35.1-43.9); Red Blood Count 2.71 Miln/mm3 (4.50-5.90); White Blood Count 11.3 Thou/mm3 (3.8-10.6)
[2024-01-30 06:32] LABS: Hemoglobin 6.9 g/dL (13.5-16.0)
[2024-01-30] MEDS: SODIUM CHLORIDE RT SOL 0.9% 3 ML NEBU INH ×3 (06:41→19:20)
[2024-01-30 06:48] LABS: Alanine Aminotransferase 13 U/L (10-49); Albumin, Serum 3.1 gm/dL (3.4-4.8); Albumin/Globulin Ratio 0.9 (1.2-2.2); Alkaline Phosphatase 148 U/L (46-116); Anion Gap 6 (7-16); Aspartate Amino Transferase 12 U/L (0-34); BUN/Creatinine Ratio 23 Ratio (12-20); Bilirubin,Total 0.3 mg/dL (0.3-1.2); Blood Urea Nitrogen 61 mg/dL (9-23); Calcium 8.2 mg/dL (8.3-10.6); Calcium (Corrected) 8.9 mg/dL (8.5-10.1); Carbon Dioxide 23.7 mMol/L (20.0-31.0); Chloride 108 mMol/L (98-107); Creatinine (Component) 2.7 mg/dL (0.6-1.3); Estimated Creatinine Clearance 30.5 mL/min (>60); Globulin 3.3 gm/dL (2.3-3.5); Glucose 118 mg/dL (74-106); Magnesium 2.3 mg/dL (1.6-2.6); Osmolality,Calculated 293 (275-295); Potassium 4.7 mMol/L (3.4-5.1); Sodium 138 mMol/L (136-145); Total Protein 6.4 gm/dL (5.7-8.2); eGFR 26 See Note
[2024-01-30 08:14] LABS: Hematocrit 24.3 % (41.0-53.0); Hemoglobin 7.4 g/dL (13.5-16.0)
[2024-01-30] MEDS: hydrALAZINE HCL 25 MG TABLET 100 MG PO ×3 (08:15→23:22)
[2024-01-30] MEDS: carVEDILOL 3.125 MG TABLET PO ×2 (08:16→17:24)
[2024-01-30] MEDS: BUMETANIDE INJ 0.25 MG/ML VIAL 4 ML 2 MG IVP ×2 (08:16→21:22)
[2024-01-30] MEDS: INSULIN GLARGINE (Lantus) 5 UNIT/0.05 ML (PER 5 UNITS) 10 UNIT SC (09:02)
--- NOTE | 2024-01-30 09:56 | PD.RESPRO ---
Documentation for date of: 01/30/24 Subjective Subjective Interval history: Patient is [place]-speaking only and interaction facilitated by healthcare warp picker Patient was seen and examined at bedside this AM. No acute exents overnight. Patient tolerating diet, adequate urine output and mentation is at baseline. Patient endorses improvement of SOB and denies any chest pain/pressure currently Patient currently on IV diuresis with Bumex 2 Mg IV twice daily. Fluid balance of positive 460 cc in past 24 hours. Continue diuresis with goal of 1?2 L per day Patient still continues to be hypertensive, but improved SBPs between 130's and 140's overnight An additional dose of Bumex 2mg IV x1 was recommended on 01/28, however it was not given Bicarb uptrended to 23.7 from 23.3, Cr uptrended to 2.7 from 2.5 and BUN unchanged at 61 Patient still has significant LE and Sacral edema, Nephrology was consulted yesterday due to worsening JSOE MARIA on CKD Urinalysis was significant for nephrotic range proteinuria and Renal USS significant for B/L renal cortical scarring without hydronephrosis. Nephrotic syndrome secondary to long standing uncontrolled DM was suspected by Nephrology who agree with current management of Bumex 2m IV BID Urine protein/creatinine was ordered to quantify proteinuria Significant edema due to both acute decompensated heart failure exacerbation and possible Nephrotic syndrome Pleural fluid culture from 01/25 grew Staphylococcus hemolyticus. On 01/27 patient had therapeutic paracentesis to the right lung and 1950 cc of pleural fluid was removed. Fluid analysis confirmed a transudative effusion. Coreg dose was decreased to 3.125 p.o. twice daily from 6.25 p.o. twice daily as beta-blockers are contraindicated in severe CHF exacerbation. Patient was started on hydralazine 100 mg p.o. 3 times daily for better blood pressure control as he is also CKD stage IIIb Amlodipine was held as per Nephrology recommendations Potassium 4.7 and magnesium 2.3. Continue to maintain potassium greater than 4 and magnesium greater than 2 at all times to prevent any arrhythmias. Exam Vital Signs Temp Pulse Resp BP Pulse Ox O2 Del Method O2 Flow Rate 98.4 F 72 14 142/69 H 99 Nasal Cannula 2 01/30/24 08:00 01/30/24 08:16 01/30/24 08:00 01/30/24 08:16 01/30/24 08:00 01/30/24 08:00 01/30/24 08:00 FiO2 45 01/30/24 04:00 Narrative Exam Constitutional Alert, oriented x 3 and Comfortable. On 2 L O2 via NC. Can speak full sentences HEENT Vision grossly intact. Patent nares. Trachea midline Respiratory Chest normal on inspection and decreased AE at bases b/l. Bandage on left and right back from thoracentesis noted Cardiovascular S1 and S2 audible, RRR. No murmurs carotid bruit. No gross JVD. Abdominal Soft,obese and non tender to palpation in all quadrants. BS + Genitourinary No bladder tenderness, no flank pain. Normal to palpation. No scrotal edema Musculoskeletal Extremities tone within normal limits. 4+ LE edema up to knees B/L. 2+ Edema of thighs b/l and sacral edema. Bandage noted on R foot Neurological CN II - XII grossly intact. Extremity motor and sensation grossly intact. Skin Warm, dry and intact. No apparent lesions. Psychiatric Patient has good affect, is cooperative Objective Labs 01/31/24 05:30 01/31/24 05:30 Labs: Laboratory Results - last 24 hr 01/28/24 01/29/24 01/29/24 09:35 04:40 14:07 WBC RBC Hgb Hct MCV MCH MCHC RDW Std Deviation Plt Count Neut % (Auto) Lymph % (Auto) Blanco % (Auto) Eos % (Auto) Baso % (Auto) Neut # (Auto) Lymph # (Auto) Blanco # (Auto) Eos # (Auto) Baso # (Auto) Immature Gran # (Auto) Absolute Nucleated RBC Immature Gran % Nucleated RBC % Sodium Potassium Chloride Carbon Dioxide Anion Gap BUN Creatinine Estim Creat Clear Calc eGFR BUN/Creatinine Ratio Glucose Calculated Osmolality Calcium Corrected Calcium Phosphorus Magnesium Total Bilirubin AST ALT Alkaline Phosphatase Total Protein Albumin Globulin Albumin/Globulin Ratio 25-OH Vitamin D Total 23.5 PTH Intact 89.0 H Coccidioides IgG Ab Negative 01/30/24 01/30/24 06:01 07:39 WBC 11.3 H D RBC 2.71 L Hgb 6.9 L* 7.4 L Hct 22.6 L 24.3 L MCV 83 MCH 25.5 MCHC 30.5 L RDW Std Deviation 44.4 H Plt Count 345 D Neut % (Auto) 69 Lymph % (Auto) 16 Blanco % (Auto) 10 Eos % (Auto) 4 Baso % (Auto) 0 Neut # (Auto) 7.8 H Lymph # (Auto) 1.8 Blanco # (Auto) 1.1 H Eos # (Auto) 0.5 Baso # (Auto) 0.0 Immature Gran # (Auto) 0.06 H Absolute Nucleated RBC 0.00 Immature Gran % 1 H Nucleated RBC % 0 Sodium 138 Potassium 4.7 Chloride 108 H Carbon Dioxide 23.7 Anion Gap 6 L BUN 61 H Creatinine 2.7 H Estim Creat Clear Calc 30.5 L eGFR 26 L BUN/Creatinine Ratio 23 H Glucose 118 H D Calculated Osmolality 293 Calcium 8.2 L Corrected Calcium 8.9 Phosphorus 4.0 Magnesium 2.3 Total Bilirubin 0.3 AST 12 ALT 13 Alkaline Phosphatase 148 H Total Protein 6.4 Albumin 3.1 L Globulin 3.3 Albumin/Globulin Ratio 0.9 L 25-OH Vitamin D Total PTH Intact Coccidioides IgG Ab ABG Interpretation ABG results: 01/25/24 01/25/24 01/26/24 19:50 20:13 03:33 ABG pH Cancelled 7.36 7.36 ABG pCO2 Cancelled 39 39 ABG pO2 Cancelled 53 L* 77 L D ABG HCO3 Cancelled 22 22 ABG O2 Saturation Cancelled 87 L 96 ABG Base Excess Cancelled -3 -3 Quality Measures Quality Measures VTE prophylaxis Assessment & Plan Assessment Current Active Medications: Generic Name Dose Route Start Last Admin Trade Name Freq PRN Reason Stop Dose Admin Acetaminophen 650 mg 01/24/24 19:40 Acetaminophen 325 Mg Tablet PO 02/23/24 19:39 Q6H PRN Fever >101.5 Atorvastatin Calcium 40 mg 01/27/24 21:00 01/29/24 21:42 Atorvastatin Calcium 20 Mg Tablet PO 02/26/24 20:59 40 mg HS ANAMARIA Administration Bumetanide 2 mg 01/26/24 09:00 01/30/24 08:16 Bumetanide Inj 0.25 Mg/Ml Vial 4 Ml IVP 02/25/24 08:59 2 mg BID ANAMARIA Administration Carvedilol 3.125 mg 01/28/24 17:30 01/30/24 08:16 Carvedilol 3.125 Mg Tablet PO 02/27/24 17:29 3.125 mg BIDWM ANAMARIA Administration Dextrose 25 ml 01/24/24 19:42 Dextrose 50%-Water Inj 50 Ml Syringe IV 02/23/24 19:41 Q15MIN PRN BG 50-70 responsive npo pt Dextrose 50 ml 01/24/24 19:42 Dextrose 50%-Water Inj 50 Ml Syringe IV 02/23/24 19:41 Q15MIN PRN BG <50 OR BG <70 & pt unresponsive Glucagon 1 mg 01/24/24 19:42 Glucagon Inj 1 Mg Vial IM Q15MIN PRN BG <70, and no IV access Heparin Sodium (Porcine) 5,000 unit 01/24/24 22:00 01/30/24 05:35 Heparin Sod Inj 5000 Unit/Ml Vial SC 02/07/24 21:59 5,000 unit Q8HR ANAMARIA Administration Hydralazine HCl 100 mg 01/28/24 08:15 01/30/24 08:15 Hydralazine Hcl 25 Mg Tablet PO 02/27/24 08:14 100 mg Q8H ANAMARIA Administration Protocol Levofloxacin/Dextrose 750 mg in 150 mls @ 100 mls/hr 01/29/24 10:45 01/29/24 11:19 Levaquin Ivpb IV 02/05/24 10:44 100 mls/hr Q48H ANAMARIA Administration Insulin Glargine 10 unit 01/25/24 09:00 01/30/24 09:02 Insulin Glargine (Lantus) 5 Unit/0.05 Ml (Per 5 Units) ME 02/24/24 08:59 10 unit QDAY ANAMARIA Administration Insulin Human Regular 0 unit 01/24/24 21:00 01/30/24 07:37 Insulin Hum Regular 1 Unit/0.01 Ml (Per Unit) ME 02/23/24 20:59 Not Given ACHS [facility] Protocol Ipratropium [place] 0.5 mg 01/24/24 21:01 01/28/24 16:33 Ipratropium Rt 0.5 Mg/ 2.5 Ml Nebu INH 02/23/24 21:00 0.5 mg Q6HRRT PRN Administration SHORTNESS OF BREATH OR WHEEZE Protocol Levalbuterol HCl 1.25 mg 01/25/24 01:00 01/30/24 06:41 Levalbuterol Rt 1.25 Mg/0.5 Ml Nebu INH 02/24/24 00:59 1.25 mg Q6HRRT ANAMARIA Administration Ondansetron HCl 4 mg 01/25/24 05:02 01/25/24 05:11 Ondansetron Inj 2 Mg/Ml Inj 2 Ml IV 02/24/24 05:01 4 mg Q6HR PRN Administration NAUSEA OR VOMITING Protocol Sodium Chloride 3 ml 01/24/24 21:01 01/30/24 06:41 Sodium Chloride Rt Silvina 0.9% 3 Ml Nebu INH 02/23/24 21:00 3 ml Q6HRRT PRN Administration SOLN Protocol Plan Patient is a 63-year-old male with a past medical history significant for essential hypertension for more than 20 years, hyperlipidemia does not appear to be statin at home, insulin-dependent diabetes mellitus type 2 [6.2] more than 30 years and CKD stage 3 B. Does not have a primary care doctor. Patient presented to the ED on 01/23 with a chief complaint of SOB and chest discomfort for 1 week. Cardiology was consulted for acute decompensated heart failure. 1. Acute respiratory failure with hypoxia Secondary to 2. Anasarca - Rule out Nephrotic syndrome vs Acute decompensated heart failure with preserved ejection fraction [50-55%] 3. B/L pleural effusions On admission patient was SOB at rest associated with chest discomfort for the past week which worsened the day of admission. BNP was elevated at 671 and troponin were negative on admission. Patient's home diuretic hydrochlorothiazide 50 Mg p.o. daily and furosemide 20 Mg p.o. daily. Chest x-ray showed moderate vascular congestion with bilateral pleural effusion and possible superimposed lower lobe consolidation bilateral. EKG showed sinus rhythm rate 95 NYHA stage C class IV Transthoracic echocardiogram completed on 01/26/2024 findings include: Normal LV size and function. Estimated EF 50-55% Normal RV size and function. Trace MR, TR. Left pleural effusion present. Previous echocardiogram from 10/06/2023: Normal LV size and function. Stage I diastolic dysfunction. Estimated EF 60-65%. Initially patient was diuresed with Lasix 40 Mg IV daily but was minimally responsive and was eventually switched to Bumex 2 Mg IV twice daily with better response. Patient also had therapeutic/diagnostic Left thoracentesis done 01/25 for bilateral large pleural effusion. Approximately 600 cc of straw-colored fluid was drained and pleural fluid analysis was significant for transudative picture confirming etiology of CHF. Patient currently on IV diuresis with Bumex 2 Mg IV twice daily. On 01/28 an additional dose of Bumex 2mg IV x 1 was recommended, but not given. Fluid balance of positive 460 cc in past 24 hours. Continue diuresis with goal of 1?2 L per day Patient still continues to be hypertensive, but improved SBPs between 130's and 140's overnight On 01/27 patient had therapeutic paracentesis to the right lung and 1950 cc of pleural fluid was removed. Fluid analysis confirmed a transudative effusion. Pleural fluid culture from 01/25 grew Staphylococcus hemolyticus. Plan: ? Strict input output charting ? 2 g sodium restricted diet ? 1500 cc a day fluid restriction ? Aim for diuresis of 1?2 L per day - Beta-blockers contraindicated in severe CHF exacerbation, can decrease dosage or hold at this time. - Coreg dose was decreased to 3.125 p.o. twice daily from 6.25 p.o. twice daily on 01/27 ? Continue diuresis with Bumex 2 Mg IV twice daily - Recommend goal-directed medical therapy for heart failure. Patient may not be able to start Entresto due to his CKD but can start spironolactone at a later time. Patient also appears to be on SGLT2 as part of his home medication which can also be restarted on discharge. ? Maintain potassium greater than 4 and Mg greater than 2 at all times to prevent any arrhythmias. 2. Proteinuria Patient still has significant LE and Sacral edema, Nephrology was consulted yesterday due to worsening JOSE MARIA on CKD Urinalysis was significant for nephrotic range proteinuria and Renal USS significant for B/L renal cortical scarring without hydronephrosis. Nephrotic syndrome secondary to long standing uncontrolled DM was suspected by Dr. Main, Agricultural Engineering Teacher who agrees with current management of Bumex 2m IV BID Urine protein/creatinine was ordered to quantify proteinuria Significant edema due to both acute decompensated heart failure exacerbation and possible Nephrotic syndrome 4. Essential hypertension Unsure of patient's home medication as he cannot recall the names and medication reconciliation not completed. It appears he might have been on amlodipine 10 Mg p.o. daily, furosemide 20 Mg p.o. daily and hydrochlorothiazide 50 Mg p.o. daily and Coreg 6.25 Mg p.o. twice daily. On admission patient's BP 175/85 Patient still continues to be hypertensive, but better SBP's between 130s and 140s overnight Plan: ? Amlodipine held as per Nephrology recommendations - Recommend to continue hydralazine 100 mg p.o. 3 times daily for better blood pressure control as he is also CKD stage IIIb - Recommend excellent control of blood pressure with systolic less than 140 mmHg. 5. Hyperlipidemia Upon chart review patient's last lipid panel from 10/05/2023 showed triglycerides 227, cholesterol 148, LDL 86. Patient does not appear to have been on a statin at home. Plan: ? Recommend high intensity statin, atorvastatin 40 Mg p.o. at bedtime 6. Sepsis secondary to community-acquired pneumonia. On admission patient met SIRS 2/4. RR 24 and WBC 15.4. Chest x-ray showed bilateral lower lobe consolidation as source of infection. Procalcitonin was within normal limits on admission as well as lactic acid level. Patient did not have any fever during visit. Sputum Gram stain done on 01/25 showed 2+ GPC and rare WBCs, sputum culture still pending. Patient currently hypotensive with BP 151/86 and similar trend over the course of admission, no concern for hypotension at this time. Patient was treated with 2 days of azithromycin and Rocephin IV as well as vancomycin IV for 2 days. Patient is currently treated with cefepime. Blood cultures are currently pending with preliminary report no bacterial growth after 48 hours. Plan: ? Continue management as per primary team 7. JOSE MARIA on CKD stage IIIb Patient's baseline CR between 1.9?2. On admission patient CR 2.8. Etiology likely prerenal in the setting of CHF exacerbation. Continue management as per primary team and Nephrology 8. Insulin-dependent diabetes mellitus type 2 [6.2] Patient had diabetes mellitus for the past 30 years and currently on insulin, empagliflozin/metformin and Ozempic at home. Most recent HbA1c 6.2% from this admission. Continue management as per primary team 9. Right foot osteomyelitis s/p transmetatarsal amputation [September 2023] Patient has history of poorly controlled diabetes in the past leading to right foot ulcer and eventual osteomyelitis leading to amputation earlier this year. On this admission foot x-ray showed cortical bone destruction at the end of the first metatarsal as well as distal second metatarsal and proximal phalanx second digit. Negative for gas gangrene or acute osteomyelitis. Patient was evaluated by general surgeon, Dr Serna who assessed patient to have a superficial ulcer and not acute osteomyelitis. Foot ulcer unlikely source of patient's sepsis. 10. Normocytic anemia On admission patient's Hb 8.9, from chart review baseline appears to be between 10?11. DDx: Iron deficiency anemia, anemia of chronic disease, thalassemia, sideroblastic anemia, lead poisoning. Iron panel from this admission showed iron low 18, TIBC low 243 and ferritin within normal limits 132 Etiology possibly multifactorial iron deficiency also anemia of chronic disease secondary to CKD. Recommend IV iron once sepsis resolves and Epogen on this admission for optimization of Hb. 11. Possible scabies Patient states that multiple residents at his rehab center were recently diagnosed with scabies. Patient also has multiple excoriations on his back and upper extremities. Patient was treated with permethrin x 1 on 01/26/2003/04/2024 and contact precautions were initiated. Continue rest of management as per primary team. We are grateful to be able to participate in Mr. Sandoval' care. Thank you for the consult Plan of care discussed with attending Contract Graphic Designer, Dr Christie Dominguez MD PGY 1 Attending Provider Attestation/Addendum I have personally seen and examined the patient separately on the above date of service and discussed the plan of care with the resident. I reviewed the resident Dr. Dominguez consultation progress note and agree with the resident findings and plan in the note above and have also edited the documentation to reflect my findings and plan. Kyle Soriano M.D. Interventional Cardiology
[2024-01-30] MEDS: INSULIN HUM REGULAR 1 UNIT/0.01 ML (PER UNIT) SC ×2 (11:39→21:20)
[2024-01-30 11:50] LABS: Creatinine,Random Urine 68 mg/dL (30-125); Protein Total, Random Urine 169 mg/dL (1-14)
--- NOTE | 2024-01-30 12:05 | PD.RESPRO ---
Documentation for date of: 01/30/24 Subjective Subjective Interval history: 63 y/o M with PMHx significant for type 2 diabetes mellitus, hyperlipidemia, and hypertension who presents with shortness of breath and chest discomfort. Symptoms started approximately a week ago but acutely worsened overnight to the point where he would get short of breath after just a few steps, prompting him to come to the ED. Endorses orthopnea, PND, and bilateral lower extremity edema. Regarding his chest pain, describes it as substernal, pressure-like, worse with activity, and does not subside with rest. 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 Previously admitted and treated for osteomyelitis of right hallux on 09/2023 and underwent transmetatarsal amputation discharged with 7-day course of doxycycline that patient completed. Patient was hypertensive at 175/85 and hypoxic 86% on room air increased to 98% on 8 L oxy mask in the ED. Chest x-ray showed vascular congestion, bilateral pleural effusions. Patient received DuoNebs, ceftriaxone, and 40 mg Lasix in the ED. Patient admitted for acute hypoxic respiratory failure secondary to acute decompensated heart failure exacerbation and sepsis likely secondary to pneumonia versus osteomyelitis. Patient labs on admission showed BUN 56, creatinine 2.8, eGFR 25 compared to baseline BUN 40, baseline creatinine 1.9, baseline eGFR 39. Patient has been treated for presumptive prerenal JOSE MARIA due to volume overload with Bumex 2 mg IV twice daily, patient has not shown improvement in renal function. Urinalysis shows nephrotic range proteinuria 3+. Nephrology consulted for worsening JOSE MARIA on CKD despite diuretic treatment. Patient seen and examined on the floors. Patient resting in bed, appears mildly distressed and chronically ill. Patient has clear signs of fluid overload: Anasarca, crackles on lung auscultation. Held patient's amlodipine due to risk of increased edema. At time of exam labs showed BUN 61, creatinine 2.5, eGFR 28. Additional urine studies ordered. Renal ultrasound performed, showed moderate bilateral renal parenchymal scar formation, no hydronephrosis. 01/29: Patient seen and examined in telemetry. Patient appears mildly uncomfortable, ill appearing. Patient was anemic at 6.9 hemoglobin, repeat H&H showed hemoglobin 7.4. Patient remains severely fluid overloaded. BUN 61, creatinine 2.7, eGFR 26. Random urine creatinine?68, urine total protein 169, ratio 2.4. PTH 89. 24-hour urine collection pending. 1.9 L in, 1.5 L. Exam Vital Signs Temp Pulse Resp BP Pulse Ox O2 Del Method O2 Flow Rate 98.4 F 72 14 142/69 H 99 Nasal Cannula 2 01/30/24 08:00 01/30/24 08:16 01/30/24 08:00 01/30/24 08:16 01/30/24 08:00 01/30/24 08:00 01/30/24 08:00 FiO2 45 01/30/24 04:00 Narrative Exam PE: Gen: Well-developed and well-nourished. Appears mildly distressed. HEENT: NCAT, PERRLA, EOMI, MMM, anicteric conjunctivae. CVS: normal S1 and S2. RRR. No M/R/G. Resp: Bilateral crackles. Abd: Mildly tender, distended, anasarca MSK: Good ROM in BUE & BLE. Bilateral lower extremity edema with skin changes secondary to chronic PAD. Sacral edema. Neuro: CN II-XII grossly intact. Strength 5/5 in BUE & BLE. Alert and oriented x3. Psych: appropriate mood and affect. Objective Labs 01/31/24 05:30 01/31/24 05:30 Labs: Laboratory Results - last 24 hr 01/28/24 01/29/24 01/29/24 09:35 04:40 14:07 WBC RBC Hgb Hct MCV MCH MCHC RDW Std Deviation Plt Count Neut % (Auto) Lymph % (Auto) [place] % (Auto) Eos % (Auto) Baso % (Auto) Neut # (Auto) Lymph # (Auto) [place] # (Auto) Eos # (Auto) Baso # (Auto) Immature Gran # (Auto) Absolute Nucleated RBC Immature Gran % Nucleated RBC % Sodium Potassium Chloride Carbon Dioxide Anion Gap BUN Creatinine Estim Creat Clear Calc eGFR BUN/Creatinine Ratio Glucose Calculated Osmolality Calcium Corrected Calcium Phosphorus Magnesium Total Bilirubin AST ALT Alkaline Phosphatase Total Protein Albumin Globulin Albumin/Globulin Ratio 25-OH Vitamin D Total 23.5 PTH Intact 89.0 H Ur Random Creatinine U Random Total Protein Coccidioides IgG Ab Negative 01/30/24 01/30/24 01/30/24 06:01 07:39 10:30 WBC 11.3 H D RBC 2.71 L Hgb 6.9 L* 7.4 L Hct 22.6 L 24.3 L MCV 83 MCH 25.5 MCHC 30.5 L RDW Std Deviation 44.4 H Plt Count 345 D Neut % (Auto) 69 Lymph % (Auto) 16 [place] % (Auto) 10 Eos % (Auto) 4 Baso % (Auto) 0 Neut # (Auto) 7.8 H Lymph # (Auto) 1.8 [place] # (Auto) 1.1 H Eos # (Auto) 0.5 Baso # (Auto) 0.0 Immature Gran # (Auto) 0.06 H Absolute Nucleated RBC 0.00 Immature Gran % 1 H Nucleated RBC % 0 Sodium 138 Potassium 4.7 Chloride 108 H Carbon Dioxide 23.7 Anion Gap 6 L BUN 61 H Creatinine 2.7 H Estim Creat Clear Calc 30.5 L eGFR 26 L BUN/Creatinine Ratio 23 H Glucose 118 H D Calculated Osmolality 293 Calcium 8.2 L Corrected Calcium 8.9 Phosphorus 4.0 Magnesium 2.3 Total Bilirubin 0.3 AST 12 ALT 13 Alkaline Phosphatase 148 H Total Protein 6.4 Albumin 3.1 L Globulin 3.3 Albumin/Globulin Ratio 0.9 L 25-OH Vitamin D Total PTH Intact Ur Random Creatinine 68 U Random Total Protein 169 H Coccidioides IgG Ab ABG Interpretation ABG results: 01/25/24 01/25/24 01/26/24 19:50 20:13 03:33 ABG pH Cancelled 7.36 7.36 ABG pCO2 Cancelled 39 39 ABG pO2 Cancelled 53 L* 77 L D ABG HCO3 Cancelled 22 22 ABG O2 Saturation Cancelled 87 L 96 ABG Base Excess Cancelled -3 -3 Quality Measures Quality Measures VTE prophylaxis Assessment & Plan Assessment Current Active Medications: Generic Name Dose Route Start Last Admin Trade Name Freq PRN Reason Stop Dose Admin Acetaminophen 650 mg 01/24/24 19:40 Acetaminophen 325 Mg Tablet PO 02/23/24 19:39 Q6H PRN Fever >101.5 Atorvastatin Calcium 40 mg 01/27/24 21:00 01/29/24 21:42 Atorvastatin Calcium 20 Mg Tablet PO 02/26/24 20:59 40 mg HS ANAMARIA Administration Bumetanide 2 mg 01/26/24 09:00 01/30/24 08:16 Bumetanide Inj 0.25 Mg/Ml Vial 4 Ml IVP 02/25/24 08:59 2 mg BID ANAMARIA Administration Carvedilol 3.125 mg 01/28/24 17:30 01/30/24 08:16 Carvedilol 3.125 Mg Tablet PO 02/27/24 17:29 3.125 mg BIDWM ANAMARIA Administration Dextrose 25 ml 01/24/24 19:42 Dextrose 50%-Water Inj 50 Ml Syringe IV 02/23/24 19:41 Q15MIN PRN BG 50-70 responsive npo pt Dextrose 50 ml 01/24/24 19:42 Dextrose 50%-Water Inj 50 Ml Syringe IV 02/23/24 19:41 Q15MIN PRN BG <50 OR BG <70 & pt unresponsive Glucagon 1 mg 01/24/24 19:42 Glucagon Inj 1 Mg Vial IM Q15MIN PRN BG <70, and no IV access Heparin Sodium (Porcine) 5,000 unit 01/24/24 22:00 01/30/24 05:35 Heparin Sod Inj 5000 Unit/Ml Vial SC 02/07/24 21:59 5,000 unit Q8HR ANAMARIA Administration Hydralazine HCl 100 mg 01/28/24 08:15 01/30/24 08:15 Hydralazine Hcl 25 Mg Tablet PO 02/27/24 08:14 100 mg Q8H ANAMARIA Administration Protocol Levofloxacin/Dextrose 750 mg in 150 mls @ 100 mls/hr 01/29/24 10:45 01/29/24 11:19 Levaquin Ivpb IV 02/05/24 10:44 100 mls/hr Q48H ANAMARIA Administration Insulin Glargine 10 unit 01/25/24 09:00 01/30/24 09:02 Insulin Glargine (Lantus) 5 Unit/0.05 Ml (Per 5 Units) SC 02/24/24 08:59 10 unit QDAY ANAMARIA Administration Insulin Human Regular 0 unit 01/24/24 21:00 01/30/24 11:39 Insulin Hum Regular 1 Unit/0.01 Ml (Per Unit) SC 02/23/24 20:59 1 unit ACHS ANAMARIA Administration Protocol Ipratropium [place] 0.5 mg 01/24/24 21:01 01/28/24 16:33 Ipratropium Rt 0.5 Mg/ 2.5 Ml Nebu INH 02/23/24 21:00 0.5 mg Q6HRRT PRN Administration SHORTNESS OF BREATH OR WHEEZE Protocol Levalbuterol HCl 1.25 mg 01/25/24 01:00 01/30/24 06:41 Levalbuterol Rt 1.25 Mg/0.5 Ml Nebu INH 02/24/24 00:59 1.25 mg Q6HRRT ANAMARIA Administration Ondansetron HCl 4 mg 01/25/24 05:02 01/25/24 05:11 Ondansetron Inj 2 Mg/Ml Inj 2 Ml IV 02/24/24 05:01 4 mg Q6HR PRN Administration NAUSEA OR VOMITING Protocol Sodium Chloride 3 ml 01/24/24 21:01 01/30/24 06:41 Sodium Chloride Rt [place] 0.9% 3 Ml Nebu INH 02/23/24 21:00 3 ml Q6HRRT PRN Administration SOLN Protocol Plan 63 y/o M with PMHx significant for HFpEF (EF 50 to 55%) DM2, hyperlipidemia, hypertension, prior osteomyelitis of right first toe s/p amputation was admitted to the hospital on 01/24/2024 for acute hypoxic respiratory failure secondary to acute decompensated heart failure exacerbation and sepsis likely secondary to pneumonia versus osteomyelitis. #JOSE MARIA on CKD Patient has some underlying CKD since last year with GFR in the high 30s to 40s. Baseline Cr 1.9 and BUN 40, BUN 56 and creatinine 2.8 on admission. Suspect prerenal given heart failure and volume overload status. Kidney function continued to worsen despite treatment with diuresis. Nephrology consulted due to worsening JOES MARIA on CKD. Urinalysis showed 3+ protein, nephrotic range. Renal ultrasound showed moderate bilateral renal parenchymal scar formation, no hydronephrosis. Urine total protein 169, urine creatinine 68, ratio 2.4. PTH 89. Suspect worsening CKD due to diabetes, HgA1c 6.2% as of 01/25/24. Discussed need for potential dialysis with the patient. Plan: -Avoid nephrotoxic agents -Renally dose medications -Hold amlodipine -Strict I's and O's -Continue Diuresis with bumex 2mg BID -Will continue to monitor -24-hour urine collection pending #Acute decompensated heart failure exacerbation. #HFpEF (EF 50 to 55% 01/2024). #Acute hypoxic respiratory failure. #Bilateral pleural effusions. #Sepsis likely secondary to pneumonia versus osteomyelitis #Pneumonia #Osteomyelitis #Scabies #Normocytic normochromic anemia #Hx of DM2 #Hx of hyperlipidemia #Hx of HTN Management as per primary team Thank you for allow me to participate in the care of this patient. Plan of care discussed with attending Dr. Main. Les Godwin MD PGY-1 Attending Provider Attestation/Addendum Patient seen and examined with resident physician Dr. Godwin. Note reviewed, agree with findings and recommendations. Patient still remains with fluid overload. Continue with diuretics. Urine protein/creatinine nonnephrotic range proteinuria. Patient seems to have cardiorenal syndrome superimposed on proteinuria. Had a long conversation with the patient regarding temporary dialysis if he remains hypervolemic despite diuretics. Patient agreed. Plan of care discussed with primary team.
--- NOTE | 2024-01-30 15:27 | PD.RESPRO ---
Documentation for date of: 01/30/24 Subjective Subjective Interval history: Overnight events, lab/imaging results, and notes reviewed. Patient examined bedside, does not report any pain or worsening to his condition. Denies any difficulties breathing. Hgb noted to be 6.9 this morning, however on repeat HH was found to improve to 7.4. Cardiology and nephrology team following, will continue diuresis with bumex. Exam Vital Signs Temp Pulse Resp BP Pulse Ox O2 Del Method O2 Flow Rate 98.2 F 68 20 151/89 H 100 Nasal Cannula 2 01/30/24 12:00 01/30/24 12:56 01/30/24 12:56 01/30/24 12:00 01/30/24 12:56 01/30/24 12:00 01/30/24 12:56 FiO2 45 01/30/24 04:00 Narrative Exam General: Alert and oriented, in no acute distress HEENT: Atraumatic/normocephalic, TRACEE, neck supple Heart: RRR, S1 and S2 without clicks or murmurs Lungs: On nasal cannula, decreased breath sounds bilaterally, no wheezes appreciated Abdomen: Soft, nontender. Neuro: No focal neurological deficits noted Objective Labs 02/04/24 10:51 02/04/24 10:51 Labs: Laboratory Results - last 24 hr 01/30/24 01/30/24 01/30/24 06:01 07:39 10:30 WBC 11.3 H D RBC 2.71 L Hgb 6.9 L* 7.4 L Hct 22.6 L 24.3 L MCV 83 MCH 25.5 MCHC 30.5 L RDW Std Deviation 44.4 H Plt Count 345 D Neut % (Auto) 69 Lymph % (Auto) 16 [place] % (Auto) 10 Eos % (Auto) 4 Baso % (Auto) 0 Neut # (Auto) 7.8 H Lymph # (Auto) 1.8 [place] # (Auto) 1.1 H Eos # (Auto) 0.5 Baso # (Auto) 0.0 Immature Gran # (Auto) 0.06 H Absolute Nucleated RBC 0.00 Immature Gran % 1 H Nucleated RBC % 0 Sodium 138 Potassium 4.7 Chloride 108 H Carbon Dioxide 23.7 Anion Gap 6 L BUN 61 H Creatinine 2.7 H Estim Creat Clear Calc 30.5 L eGFR 26 L BUN/Creatinine Ratio 23 H Glucose 118 H D Calculated Osmolality 293 Calcium 8.2 L Corrected Calcium 8.9 Phosphorus 4.0 Magnesium 2.3 Total Bilirubin 0.3 AST 12 ALT 13 Alkaline Phosphatase 148 H Total Protein 6.4 Albumin 3.1 L Globulin 3.3 Albumin/Globulin Ratio 0.9 L Ur Random Creatinine 68 U Random Total Protein 169 H ABG Interpretation ABG results: 01/25/24 01/25/24 01/26/24 19:50 20:13 03:33 ABG pH Cancelled 7.36 7.36 ABG pCO2 Cancelled 39 39 ABG pO2 Cancelled 53 L* 77 L D ABG HCO3 Cancelled 22 22 ABG O2 Saturation Cancelled 87 L 96 ABG Base Excess Cancelled -3 -3 Quality Measures Quality Measures VTE prophylaxis (heparin subcutaneously) Assessment & Plan Assessment Current Active Medications: Generic Name Dose Route Start Last Admin Trade Name Freq PRN Reason Stop Dose Admin Acetaminophen 650 mg 01/24/24 19:40 Acetaminophen 325 Mg Tablet PO 02/23/24 19:39 Q6H PRN Fever >101.5 Atorvastatin Calcium 40 mg 01/27/24 21:00 01/29/24 21:42 Atorvastatin Calcium 20 Mg Tablet PO 02/26/24 20:59 40 mg HS ANAMARIA Administration Bumetanide 2 mg 01/26/24 09:00 01/30/24 08:16 Bumetanide Inj 0.25 Mg/Ml Vial 4 Ml IVP 02/25/24 08:59 2 mg BID ANAMARIA Administration Carvedilol 3.125 mg 01/28/24 17:30 01/30/24 08:16 Carvedilol 3.125 Mg Tablet PO 02/27/24 17:29 3.125 mg BIDWM ANAMARIA Administration Dextrose 25 ml 01/24/24 19:42 Dextrose 50%-Water Inj 50 Ml Syringe IV 02/23/24 19:41 Q15MIN PRN BG 50-70 responsive npo pt Dextrose 50 ml 01/24/24 19:42 Dextrose 50%-Water Inj 50 Ml Syringe IV 02/23/24 19:41 Q15MIN PRN BG <50 OR BG <70 & pt unresponsive Glucagon 1 mg 01/24/24 19:42 Glucagon Inj 1 Mg Vial IM Q15MIN PRN BG <70, and no IV access Heparin Sodium (Porcine) 5,000 unit 01/24/24 22:00 01/30/24 13:48 Heparin Sod Inj 5000 Unit/Ml Vial SC 02/07/24 21:59 5,000 unit Q8HR ANAMARIA Administration Hydralazine HCl 100 mg 01/28/24 08:15 01/30/24 08:15 Hydralazine Hcl 25 Mg Tablet PO 02/27/24 08:14 100 mg Q8H ANAMARIA Administration Protocol Levofloxacin/Dextrose 750 mg in 150 mls @ 100 mls/hr 01/29/24 10:45 01/29/24 11:19 Levaquin Ivpb IV 02/05/24 10:44 100 mls/hr Q48H ANAMARIA Administration Insulin Glargine 10 unit 01/25/24 09:00 01/30/24 09:02 Insulin Glargine (Lantus) 5 Unit/0.05 Ml (Per 5 Units) SC 02/24/24 08:59 10 unit QDAY ANAMARIA Administration Insulin Human Regular 0 unit 01/24/24 21:00 01/30/24 11:39 Insulin Hum Regular 1 Unit/0.01 Ml (Per Unit) SC 02/23/24 20:59 1 unit ACHS ANAMARIA Administration Protocol Ipratropium [place] 0.5 mg 01/24/24 21:01 01/28/24 16:33 Ipratropium Rt 0.5 Mg/ 2.5 Ml Nebu INH 02/23/24 21:00 0.5 mg Q6HRRT PRN Administration SHORTNESS OF BREATH OR WHEEZE Protocol Levalbuterol HCl 1.25 mg 01/25/24 01:00 01/30/24 12:55 Levalbuterol Rt 1.25 Mg/0.5 Ml Nebu INH 02/24/24 00:59 1.25 mg Q6HRRT ANAMARIA Administration Ondansetron HCl 4 mg 01/25/24 05:02 01/25/24 05:11 Ondansetron Inj 2 Mg/Ml Inj 2 Ml IV 02/24/24 05:01 4 mg Q6HR PRN Administration NAUSEA OR VOMITING Protocol Sodium Chloride 3 ml 01/24/24 21:01 01/30/24 12:55 Sodium Chloride Rt Silv[place] 0.9% 3 Ml Nebu INH 02/23/24 21:00 3 ml Q6HRRT PRN Administration SOLN Protocol Plan 63-year-old male with past medical history of HFpEF (EF 50 to 55%) DM2, hyperlipidemia, hypertension, prior osteomyelitis of right first toe s/p amputation was admitted to the hospital on 01/24/2024 for acute hypoxic respiratory failure secondary to acute decompensated heart failure exacerbation and sepsis likely secondary to pneumonia versus osteomyelitis. #Acute decompensated heart failure exacerbation. #HFpEF (EF 50 to 55% 01/2024). #Acute hypoxic respiratory failure. #Bilateral transudative pleural effusions. ?Patient came in with shortness of breath, bilateral lower extremity edema, and orthopnea ?Patient's last echo on 09/2023 showed an ejection fraction of 60 to 65% ?Chest x-ray 01/24/24 showed moderate heart failure ? BNP 671 -Echo showed EF 50-55% -Pleural fluid was transudative using lights criteria, most likely due to HF exacerbation. -thoracentesis L side on 01/26/2024 Plan: ?Continue IV Bumex 2 mg twice daily, additional Bumex dose given. -continue Carvedilol to 3.125mg BID ?Strict CHAR's ?Fluid restrictions 1500 mL daily ?Daily weights ?Keep potassium above 4 and magnesium above 2 -Low sodium diet -Cardiology consulted (Dr. Soriano), appreciate recommendations ?Will continue to monitor #Sepsis likely secondary to community acquired pneumonia versus osteomyelitis #community acquired Pneumonia #Osteomyelitis ?Initially patient met SIRS criteria 2 out of 4 with leukocytosis and tachypnea ?Chest x-ray showed bilateral pneumonia and pleural effusions -CXR 01/27/2024 showed extensive ANGEL PNA ?Right foot x-ray showed osteomyelitis in the amputated first metatarsal and second metatarsophalangeal joint ?WBC 11.2 ?DC's cefepime [01/25/2024?01/29/2024] -DC's vancomycin [01/25/2024?01/27/2024] Plan: -started on levofloxacin [01/28- ]. ?Breathing treatments as needed -Wound care ?Referral to physical therapy ?General Surgery consulted (Dr. Serna), recommended no surgery at the moment and to continue antibiotics #JOSE MARIA on CKD ?Patient has some underlying CKD since last year with GFR in the high 30s to 40s -Baseline Cr 1.9 and was 2.8 on admission -Likely prerenal given heart failure and volume overload status ?BUN 64 and creatinine 2.6 today Plan: ?Avoid nephrotoxic agents ? Renally dose medications -Continue Diuresis with bumex 2mg BID ? Will continue to monitor #Scabies ? Patient stated that multiple residents in his rehab center were diagnosed with scabies. ?Patient has multiple excoriations on his entire back and bilateral upper extremities. Plan: ? Permethrin x 1 done on 01/26/2024 ? Contact precautions ?will continue to monitor #Normocytic normochromic anemia ?Patient has a Hx of normocytic anemia with Hgb 10.4 prior to admission - Hgb 7.5 Plan: ?Will transfuse if hemoglobin less than 7 ?Will continue to monitor #Hx of DM2 ?A1c 6.2 on 01/25/2024 Plan: ?ISS ? Accu-Cheks and hypoglycemia protocol ? Will continue to monitor #Hx of hyperlipidemia ?Triglycerides 227, cholesterol 148, LDL 86, HDL 17 on 10/05/2023 Plan: ?Continue atorvastatin 40 mg #Hx of HTN ?Continue amlodipine 10 mg daily -Started hydralazine 100mg every 8 hours Disposition: Continueing IV diuresis as guided by cardiology and nephrology recommendations Diet: carb consistent. GI prophylaxis: not indicated. DVT prophylaxis: Heparin sc . Code: Full code Patient case discussed with attending physician Dr. Amina Nielson, DO PGY-3 Attending Provider Attestation/Addendum 43-year-old male with multiple comorbidities including type 2 diabetes mellitus, hypertension, hyperlipidemia and heart failure with preserved EF who was admitted on 01/24/2024 with shortness of breath found to have acute sided heart failure exacerbation with bilateral pleural effusion IV diuretic therapy. In addition, patient also found to have osteomyelitis patient has a PICC line in place and IV antibiotic therapy until February 27, 2024. I reviewed above note and agree with findings and plans. I have also personally examined the patient with medicine team and went over assessment and plan with medical team including internet application developer and resident physician.
[2024-01-30] MEDS: ATORVASTATIN CALCIUM 20 MG TABLET 40 MG PO (21:22)
[2024-01-31] VITALS (16 sets, daily range): BP systolic 145–160; BP diastolic 66–89; PULSE 69–82; RESP 16–25; TEMP 36.4–37.1; O2SAT 92–99; BMI 33.7
[2024-01-31] MEDS: LEVALBUTEROL RT 1.25 MG/0.5 ML NEBU INH ×4 (00:11→19:05)
[2024-01-31] MEDS: SODIUM CHLORIDE RT SOL 0.9% 3 ML NEBU INH ×4 (00:11→19:05)
[2024-01-31] MEDS: HEPARIN SOD INJ 5000 UNIT/ML VIAL SC ×3 (05:34→21:46)
[2024-01-31 06:06] LABS: Basophils % (Auto) 0 % (0-2.5); Eosinophils # (Auto) 0.8 Thou/mm3 (0.0-0.5); Eosinophils % (Auto) 8 % (0-10); Hematocrit 23.6 % (41.0-53.0); Immature Granulocytes % (Auto) 1 % (0-0); Immature Granulocytes Auto 0.05 Thou/mm3 (0.00-0.00); Lymphocytes # (Auto) 1.8 Thou/mm3 (1.0-4.8); Lymphocytes % (Auto) 18 % (10-50); Mean Corpuscular HGB Conc 30.1 g/dl (31.0-37.0); Mean Corpuscular Hemoglobin 25.1 pg (25.0-35.0); Mean Corpuscular Volume 83 fL (80-100); Monocytes # (Auto) 1.1 Thou/mm3 (0.0-0.8); Monocytes % (Auto) 11 % (0-12); Neutrophils # (Auto) 6.2 Thou/mm3 (1.8-7.7); Neutrophils % (Auto) 62 % (37-80); Nucleated Red Blood Cell % 0 /100 WBC (0); Platelet Count 351 Thou/mm3 (140-440); RDW Standard Deviation 44.8 fL (35.1-43.9); Red Blood Count 2.83 Miln/mm3 (4.50-5.90)
[2024-01-31 06:09] LABS: Hemoglobin 7.1 g/dL (13.5-16.0)
[2024-01-31 06:30] LABS: Anion Gap 7 (7-16); BUN/Creatinine Ratio 23 Ratio (12-20); Blood Urea Nitrogen 62 mg/dL (9-23); Calcium 8.3 mg/dL (8.3-10.6); Carbon Dioxide 24.4 mMol/L (20.0-31.0); Chloride 107 mMol/L (98-107); Creatinine (Component) 2.7 mg/dL (0.6-1.3); Estimated Creatinine Clearance 30.3 mL/min (>60); Glucose 121 mg/dL (74-106); Osmolality,Calculated 294 (275-295); Potassium 4.7 mMol/L (3.4-5.1); Sodium 138 mMol/L (136-145); eGFR 26 See Note
--- NOTE | 2024-01-31 08:07 | PD.RESPRO ---
Documentation for date of: 01/31/24 Subjective Subjective Interval history: Patient is Salvadorean-speaking only and interaction facilitated by healthcare train crew member Patient was seen and examined at bedside this AM. No acute exents overnight. Patient tolerating diet, adequate urine output and mentation is at baseline. Patient complains of mild SOB at rest and denies any chest pain/pressure currently Patient currently on IV diuresis with Bumex 2 Mg IV twice daily. Fluid balance of negative 1460cc in past 24 hours. Continue diuresis with goal of 1?2 L per day Patient still continues to be hypertensive, but improved SBPs between 130's and 140's overnight An additional dose of Bumex 2mg IV x1 was recommended on 01/28, however it was not given Bicarb uptrended to 24.4 from 23.7 , Cr unchanged at 2.7 and BUN increased to 62 from 61 Patient still has significant LE and Sacral edema, Nephrology was consulted on 01/28 due to worsening JOSE MARIA on CKD Urinalysis was significant for proteinuria and Renal USS significant for B/L renal cortical scarring without hydronephrosis. Nephrotic syndrome secondary to long standing uncontrolled DM was suspected by Nephrology who agree with current management of Bumex 2m IV BID Estimated urine protein 2.5g / 24 hours, out of Nephrotic range. 24 hour urine protein pending Significant edema due to both acute decompensated heart failure exacerbation and possible Nephrotic syndrome Pleural fluid culture from 01/25 grew Staphylococcus hemolyticus. On 01/27 patient had therapeutic paracentesis to the right lung and 1950 cc of pleural fluid was removed. Fluid analysis confirmed a transudative effusion. Coreg dose was decreased to 3.125 p.o. twice daily from 6.25 p.o. twice daily as beta-blockers are contraindicated in severe CHF exacerbation. Patient is now doing better and continues to be hypertensive, can increase Coreg to 6.25 mg po BID Continue hydralazine 100 mg p.o. 3 times daily for better blood pressure control as he is also CKD stage IIIb Amlodipine was held as per Nephrology recommendations Metolazone 5mg po x 1 was given for extra diuresis Ideally patient should be on ARB for better blood pressure control and as part of GDMT, however due to his JOSE MARIA on CKD stage IV hold for now pending Dr. Main, Nephrology recommendations Potassium 4.7 and magnesium 2.1. Continue to maintain potassium greater than 4 and magnesium greater than 2 at all times to prevent any arrhythmias. Exam Vital Signs Temp Pulse Resp BP Pulse Ox O2 Del Method O2 Flow Rate 98.8 F 74 20 145/78 H 99 Nasal Cannula 1 01/31/24 04:00 01/31/24 06:30 01/31/24 06:30 01/31/24 04:00 01/31/24 06:30 01/31/24 04:00 01/31/24 06:30 FiO2 45 01/31/24 00:00 Narrative Exam Constitutional Alert, oriented x 3 and Comfortable. On 2 L O2 via NC. Can speak full sentences HEENT Vision grossly intact. Patent nares. Trachea midline Respiratory Chest normal on inspection and decreased AE at bases b/l. Bandage on left and right back from thoracentesis noted Cardiovascular S1 and S2 audible, RRR. No murmurs carotid bruit. No gross JVD. Abdominal Soft,obese and non tender to palpation in all quadrants. BS + Genitourinary No bladder tenderness, no flank pain. Normal to palpation. No scrotal edema Musculoskeletal Extremities tone within normal limits. 4+ LE edema up to knees B/L. 2+ Edema of thighs b/l and sacral edema. Bandage noted on R foot Neurological CN II - XII grossly intact. Extremity motor and sensation grossly intact. Skin Warm, dry and intact. No apparent lesions. Psychiatric Patient has good affect, is cooperative Objective Labs 01/31/24 05:30 01/31/24 05:30 Labs: Laboratory Results - last 24 hr 01/30/24 01/30/24 01/31/24 07:39 10:30 05:30 WBC 10.0 RBC 2.83 L Hgb 7.4 L 7.1 L Hct 24.3 L 23.6 L MCV 83 MCH 25.1 MCHC 30.1 L RDW Std Deviation 44.8 H Plt Count 351 Neut % (Auto) 62 Lymph % (Auto) 18 [place] % (Auto) 11 Eos % (Auto) 8 Baso % (Auto) 0 Neut # (Auto) 6.2 Lymph # (Auto) 1.8 [place] # (Auto) 1.1 H Eos # (Auto) 0.8 H Baso # (Auto) 0.0 Immature Gran # (Auto) 0.05 H Absolute Nucleated RBC 0.00 Immature Gran % 1 H Nucleated RBC % 0 Sodium 138 Potassium 4.7 Chloride 107 Carbon Dioxide 24.4 Anion Gap 7 BUN 62 H Creatinine 2.7 H Estim Creat Clear Calc 30.3 L eGFR 26 L BUN/Creatinine Ratio 23 H Glucose 121 H Calculated Osmolality 294 Calcium 8.3 Ur Random Creatinine 68 U Random Total Protein 169 H ABG Interpretation ABG results: 01/25/24 01/25/24 01/26/24 19:50 20:13 03:33 ABG pH Cancelled 7.36 7.36 ABG pCO2 Cancelled 39 39 ABG pO2 Cancelled 53 L* 77 L D ABG HCO3 Cancelled 22 22 ABG O2 Saturation Cancelled 87 L 96 ABG Base Excess Cancelled -3 -3 Quality Measures Quality Measures VTE prophylaxis (heparin subcutaneously) Assessment & Plan Assessment Current Active Medications: Generic Name Dose Route Start Last Admin Trade Name Freq PRN Reason Stop Dose Admin Acetaminophen 650 mg 01/24/24 19:40 Acetaminophen 325 Mg Tablet PO 02/23/24 19:39 Q6H PRN Fever >101.5 Atorvastatin Calcium 40 mg 01/27/24 21:00 01/30/24 21:22 Atorvastatin Calcium 20 Mg Tablet PO 02/26/24 20:59 40 mg HS ANAMARIA Administration Bumetanide 2 mg 01/26/24 09:00 01/30/24 21:22 Bumetanide Inj 0.25 Mg/Ml Vial 4 Ml IVP 02/25/24 08:59 2 mg BID ANAMARIA Administration Carvedilol 3.125 mg 01/28/24 17:30 01/30/24 17:24 Carvedilol 3.125 Mg Tablet PO 02/27/24 17:29 3.125 mg BIDWM ANAMARIA Administration Dextrose 25 ml 01/24/24 19:42 Dextrose 50%-Water Inj 50 Ml Syringe IV 02/23/24 19:41 Q15MIN PRN BG 50-70 responsive npo pt Dextrose 50 ml 01/24/24 19:42 Dextrose 50%-Water Inj 50 Ml Syringe IV 02/23/24 19:41 Q15MIN PRN BG <50 OR BG <70 & pt unresponsive Glucagon 1 mg 01/24/24 19:42 Glucagon Inj 1 Mg Vial IM Q15MIN PRN BG <70, and no IV access Heparin Sodium (Porcine) 5,000 unit 01/24/24 22:00 01/31/24 05:34 Heparin Sod Inj 5000 Unit/Ml Vial SC 02/07/24 21:59 5,000 unit Q8HR ANAMARIA Administration Hydralazine HCl 100 mg 01/28/24 08:15 01/30/24 23:22 Hydralazine Hcl 25 Mg Tablet PO 02/27/24 08:14 100 mg Q8H ANAMARIA Administration Protocol Levofloxacin/Dextrose 750 mg in 150 mls @ 100 mls/hr 01/29/24 10:45 01/29/24 11:19 Levaquin Ivpb IV 02/05/24 10:44 100 mls/hr Q48H ANAMARIA Administration Insulin Glargine 10 unit 01/25/24 09:00 01/30/24 09:02 Insulin Glargine (Lantus) 5 Unit/0.05 Ml (Per 5 Units) SC 02/24/24 08:59 10 unit QDAY ANAMARIA Administration Insulin Human Regular 0 unit 01/24/24 21:00 01/31/24 07:32 Insulin Hum Regular 1 Unit/0.01 Ml (Per Unit) SC 02/23/24 20:59 Not Given ACHS ANAMARIA Protocol Ipratropium [place] 0.5 mg 01/24/24 21:01 01/28/24 16:33 Ipratropium Rt 0.5 Mg/ 2.5 Ml Nebu INH 02/23/24 21:00 0.5 mg Q6HRRT PRN Administration SHORTNESS OF BREATH OR WHEEZE Protocol Levalbuterol HCl 1.25 mg 01/25/24 01:00 01/31/24 06:29 Levalbuterol Rt 1.25 Mg/0.5 Ml Nebu INH 02/24/24 00:59 1.25 mg Q6HRRT ANAMARIA Administration Ondansetron HCl 4 mg 01/25/24 05:02 01/25/24 05:11 Ondansetron Inj 2 Mg/Ml Inj 2 Ml IV 02/24/24 05:01 4 mg Q6HR PRN Administration NAUSEA OR VOMITING Protocol Sodium Chloride 3 ml 01/24/24 21:01 01/31/24 06:29 Sodium Chloride Rt Silvina 0.9% 3 Ml Nebu INH 02/23/24 21:00 3 ml Q6HRRT PRN Administration SOLN Protocol Plan Patient is a 63-year-old male with a past medical history significant for essential hypertension for more than 20 years, hyperlipidemia does not appear to be statin at home, insulin-dependent diabetes mellitus type 2 [6.2] more than 30 years and CKD stage 3 B. Does not have a primary care doctor. Patient presented to the ED on 01/23 with a chief complaint of SOB and chest discomfort for 1 week. Cardiology was consulted for acute decompensated heart failure. 1. Acute respiratory failure with hypoxia Secondary to 2. Anasarca - Rule out Nephrotic syndrome vs Acute decompensated heart failure with preserved ejection fraction [50-55%] 3. B/L pleural effusions On admission patient was SOB at rest associated with chest discomfort for the past week which worsened the day of admission. BNP was elevated at 671 and troponin were negative on admission. Patient's home diuretic hydrochlorothiazide 50 Mg p.o. daily and furosemide 20 Mg p.o. daily. Chest x-ray showed moderate vascular congestion with bilateral pleural effusion and possible superimposed lower lobe consolidation bilateral. EKG showed sinus rhythm rate 95 NYHA stage C class IV Transthoracic echocardiogram completed on 01/26/2024 findings include: Normal LV size and function. Estimated EF 50-55% Normal RV size and function. Trace MR, TR. Left pleural effusion present. Previous echocardiogram from 10/06/2023: Normal LV size and function. Stage I diastolic dysfunction. Estimated EF 60-65%. Initially patient was diuresed with Lasix 40 Mg IV daily but was minimally responsive and was eventually switched to Bumex 2 Mg IV twice daily with better response. Patient also had therapeutic/diagnostic Left thoracentesis done 01/25 for bilateral large pleural effusion. Approximately 600 cc of straw-colored fluid was drained and pleural fluid analysis was significant for transudative picture confirming etiology of CHF. Patient currently on IV diuresis with Bumex 2 Mg IV twice daily. On 01/28 an additional dose of Bumex 2mg IV x 1 was recommended, but not given. Fluid balance of negative 1460cc in past 24 hours. Continue diuresis with goal of 1?2 L per day Patient still continues to be hypertensive, but improved SBPs between 130's and 140's overnight On 01/27 patient had therapeutic paracentesis to the right lung and 1950 cc of pleural fluid was removed. Fluid analysis confirmed a transudative effusion. Pleural fluid culture from 01/25 grew Staphylococcus hemolyticus. Plan: ? Strict input output charting ? 2 g sodium restricted diet ? 1500 cc a day fluid restriction ? Aim for diuresis of 1?2 L per day - Beta-blockers contraindicated in severe CHF exacerbation, can decrease dosage or hold at this time. - Coreg dose was decreased to 3.125 p.o. twice daily from 6.25 p.o. twice daily on 01/27, patient's CHF exacerbation now improved, can increase COreg to 6.25 mg po BID for better blood pressure control ? Continue diuresis with Bumex 2 Mg IV twice daily - Recommend goal-directed medical therapy for heart failure. Patient may not be able to start Entresto due to his CKD but can start spironolactone at a later time. Patient also appears to be on SGLT2 as part of his home medication which can also be restarted on discharge. ? Maintain potassium greater than 4 and Mg greater than 2 at all times to prevent any arrhythmias. 2. Proteinuria Patient still has significant LE and Sacral edema, Nephrology was consulted yesterday due to worsening JOSE MARIA on CKD Urinalysis was significant for nephrotic range proteinuria and Renal USS significant for B/L renal cortical scarring without hydronephrosis. Nephrotic syndrome secondary to long standing uncontrolled DM was suspected by Dr. Main, Harness Preparer who agrees with current management of Bumex 2m IV BID Estimated urine protein 2.5g / 24 hours, out of Nephrotic range. 24 hour urine protein pending Significant edema due to both acute decompensated heart failure exacerbation and possible Nephrotic syndrome 4. Essential hypertension Unsure of patient's home medication as he cannot recall the names and medication reconciliation not completed. It appears he might have been on amlodipine 10 Mg p.o. daily, furosemide 20 Mg p.o. daily and hydrochlorothiazide 50 Mg p.o. daily and Coreg 6.25 Mg p.o. twice daily. On admission patient's BP 175/85 Patient still continues to be hypertensive, but better SBP's between 130s and 140s overnight Plan: ? Amlodipine held as per Nephrology recommendations - Recommend to continue hydralazine 100 mg p.o. 3 times daily for better blood pressure control as he is also JOSE MARIA on CKD stage IV - Can increase Coreg to 6.25mg po BID from 3.125mg po BID for better blood pressure control - Recommend excellent control of blood pressure with systolic less than 140 mmHg. 5. Hyperlipidemia Upon chart review patient's last lipid panel from 10/05/2023 showed triglycerides 227, cholesterol 148, LDL 86. Patient does not appear to have been on a statin at home. Plan: ? Recommend high intensity statin, atorvastatin 40 Mg p.o. at bedtime 6. Sepsis secondary to community-acquired pneumonia. On admission patient met SIRS 2/4. RR 24 and WBC 15.4. Chest x-ray showed bilateral lower lobe consolidation as source of infection. Procalcitonin was within normal limits on admission as well as lactic acid level. Patient did not have any fever during visit. Sputum Gram stain done on 01/25 showed 2+ GPC and rare WBCs, sputum culture still pending. Patient currently hypotensive with BP 151/86 and similar trend over the course of admission, no concern for hypotension at this time. Patient was treated with 2 days of azithromycin and Rocephin IV as well as vancomycin IV for 2 days. Patient is currently treated with cefepime. Blood cultures are currently pending with preliminary report no bacterial growth after 48 hours. Plan: ? Continue management as per primary team 7. JOSE MARIA on CKD stage IIIb Patient's baseline CR between 1.9?2. On admission patient CR 2.8. Etiology likely prerenal in the setting of CHF exacerbation. Continue management as per primary team and Nephrology 8. Insulin-dependent diabetes mellitus type 2 [6.2] Patient had diabetes mellitus for the past 30 years and currently on insulin, empagliflozin/metformin and Ozempic at home. Most recent HbA1c 6.2% from this admission. Continue management as per primary team 9. Right foot osteomyelitis s/p transmetatarsal amputation [September 2023] Patient has history of poorly controlled diabetes in the past leading to right foot ulcer and eventual osteomyelitis leading to amputation earlier this year. On this admission foot x-ray showed cortical bone destruction at the end of the first metatarsal as well as distal second metatarsal and proximal phalanx second digit. Negative for gas gangrene or acute osteomyelitis. Patient was evaluated by general surgeon, Dr Serna who assessed patient to have a superficial ulcer and not acute osteomyelitis. Foot ulcer unlikely source of patient's sepsis. 10. Normocytic anemia On admission patient's Hb 8.9, from chart review baseline appears to be between 10?11. Currently Hb 7.1 Reccomend to transfuse with PRBC if Hb < 7 DDx: Iron deficiency anemia, anemia of chronic disease, thalassemia, sideroblastic anemia, lead poisoning. Iron panel from this admission showed iron low 18, TIBC low 243 and ferritin within normal limits 132 Etiology possibly multifactorial iron deficiency also anemia of chronic disease secondary to CKD. Recommend IV iron once sepsis resolves and Epogen on this admission for optimization of Hb. 11. Possible scabies Patient states that multiple residents at his rehab center were recently diagnosed with scabies. Patient also has multiple excoriations on his back and upper extremities. Patient was treated with permethrin x 1 on 01/26/2003/04/2024 and contact precautions were initiated. Contact precautions were removed Continue rest of management as per primary team. We are grateful to be able to participate in Mr. Sandoval' care. Thank you for the consult Plan of care discussed with attending Gear Generator Set Up Operator, Dr Christie Dominguez MD PGY 1 Attending Provider Attestation/Addendum I reviewed the resident Dr. Dominguez consultation progress note and agree with the resident findings and plan in the note above and have also edited the documentation to reflect my findings and plan. Kyle Soriano M.D. Interventional Cardiology
[2024-01-31] MEDS: hydrALAZINE HCL 25 MG TABLET 100 MG PO ×3 (08:16→23:53)
[2024-01-31] MEDS: carVEDILOL 3.125 MG TABLET PO (08:16)
[2024-01-31] MEDS: BUMETANIDE INJ 0.25 MG/ML VIAL 4 ML 2 MG IVP ×2 (08:16→21:46)
[2024-01-31] MEDS: INSULIN GLARGINE (Lantus) 5 UNIT/0.05 ML (PER 5 UNITS) 10 UNIT SC (08:21)
[2024-01-31 08:58] LABS: Albumin, Serum 3.1 gm/dL (3.4-4.8); Magnesium 2.1 mg/dL (1.6-2.6)
[2024-01-31] MEDS: LEVOFLOXACIN/D5W 750MG IVPB 750 MG/150 ML BAG 100 MG IV (09:56)
[2024-01-31] MEDS: metOLazone 2.5 MG TABLET 5 MG PO (11:00)
[2024-01-31] MEDS: INSULIN HUM REGULAR 1 UNIT/0.01 ML (PER UNIT) SC ×2 (11:08→21:46)
[2024-01-31 11:38] LABS: Protein Total, Urine 141 mg/dL (1-14)
[2024-01-31 11:41] LABS: Protein Total, 24 hr Urine 2510 mg/24hr (<149); Protein Total, Urine Volume 1780 mL/24hr (600-1800)
[2024-01-31 11:41] LABS: Chloride,Urine Random 82.4 mMol/L (55.0-125.0); Creatinine,Random Urine 57 mg/dL (30-125); Potassium,Urine Random 26 mMol/L (12-62); Sodium,Urine Random 81.2 mMol/L (20.0-110.0)
--- NOTE | 2024-01-31 12:13 | ESPR_ITS ---
Documentation for date of: 01/31/24 Subjective Subjective Interval history: Mr. Sandoval is a 63 y/o M with PMHx significant for type 2 diabetes mellitus, hyperlipidemia, and hypertension who presents with shortness of breath and chest discomfort. Symptoms started approximately a week ago but acutely worsened overnight to the point where he would get short of breath after just a few steps, prompting him to come to the ED. Endorses orthopnea, PND, and bilateral lower extremity edema. Regarding his chest pain, describes it as substernal, pressure-like, worse with activity, and does not subside with rest. Not on home oxygen and currently on 8 L oxy mask and states that he does not have an outpatient photographer finish. Previously admitted and treated for osteomyelitis of right hallux on 09/2023 and underwent transmetatarsal amputation discharged with 7-day course of doxycycline that patient completed. Patient was hypertensive at 175/85 and hypoxic 86% on room air increased to 98% on 8 L oxy mask in the ED. Chest x-ray showed vascular congestion, bilateral pleural effusions. Patient received DuoNebs, ceftriaxone, and 40 mg Lasix in the ED. Patient admitted for acute hypoxic respiratory failure secondary to acute decompensated heart failure exacerbation and sepsis likely secondary to pneumonia versus osteomyelitis. Patient labs on admission showed BUN 56, creatinine 2.8, eGFR 25 compared to baseline BUN 40, baseline creatinine 1.9, baseline eGFR 39. Patient has been treated for presumptive prerenal JOSE MARIA due to volume overload with Bumex 2 mg IV twice daily, patient has not shown improvement in renal function. Urinalysis shows nephrotic range proteinuria 3+. Nephrology consulted for worsening JOSE MARIA on CKD despite diuretic treatment. Patient seen and examined on the floors. Patient resting in bed, appears mildly distressed and chronically ill. Patient has clear signs of fluid overload: Anasarca, crackles on lung auscultation. Held patient's amlodipine due to risk of increased edema. At time of exam labs showed BUN 61, creatinine 2.5, eGFR 28. Additional urine studies ordered. Renal ultrasound performed, showed moderate bilateral renal parenchymal scar formation, no hydronephrosis. 01/29: Patient seen and examined in telemetry. Patient appears mildly uncomfortable, ill appearing. Patient was anemic at 6.9 hemoglobin, repeat H&H showed hemoglobin 7.4. Patient remains severely fluid overloaded. BUN 61, creatinine 2.7, eGFR 26. Random urine creatinine?68, urine total protein 169, ratio 2.4. PTH 89. 24-hour urine collection pending. 1.9 L in, 1.5 L. 01/31/2024 patient currently seen in telemetry. Family at bedside.24-hour urine showed 2.5 g of protein per day. WBC 10, hemoglobin 7.1, platelets 351. Sodium 138, potassium 4.7, BUN 62, creatinine 2.7, GFR 26, phosphorus 4, ferritin 132, iron saturation 7, alk phos 142, albumin 3.1, B12 342, vitamin D23.5, PTH 89, urinalysis shows proteinuria. Patient had 2.1 L of urine. Review of Systems Review of Systems Narrative Review of Systems: CONSTITUTIONAL: Patient denies any fever, chills. HEENT: Denies any visual disturbances or hearing problems. CARDIOVASCULAR: Patient denies any chest pain.complaining of shortness of breath, swelling in the lower extremities. PULMONARY: Patient complaining of shortness of breath, cough. GASTROINTESTINAL: Patient denies any abdominal pain, constipation, nausea, vomiting, diarrhea. GENITOURINARY: Patient denies any urinary symptoms of burning or frequency or hematuria, ++ form in the urine. SKIN: Stasis dermatitis MUSCULOSKELETAL: Complaining of gait imbalance. Right foot surgery NEUROLOGICAL: Denies any neurological problems of strokes, seizures or confusion. Denies any memory problems. PSYCHIATRIC: Admits depression Exam Vital Signs Temp Pulse Resp BP Pulse Ox O2 Del Method O2 Flow Rate 36.7 C 78 25 H 150/77 H 92 L Nasal Cannula 2 01/31/24 16:00 01/31/24 16:31 01/31/24 16:00 01/31/24 16:31 01/31/24 16:00 01/31/24 16:00 01/31/24 16:00 FiO2 0 01/31/24 09:00 Narrative Exam GENERAL APPEARANCE: Patient currently seen in telemetry. Family at bedside. NECK: Neck supple, no JVD or bruit CARDIOVASCULAR: Heart regular, no murmurs LUNGS/CHEST: Bilateral crackles noted ABDOMEN: Soft, nontender, nondistended. No masses. Normal bowel sounds. EXTREMITIES: 2+ edema noted in the lower extremities, anasarca noted SKIN: Stasis dermatitis noted MUSCULOSKELETAL: Right foot surgery NEUROLOGICAL : No neurological deficits. Alert and awake Objective Labs 01/31/24 05:30 01/31/24 05:30 Labs: Laboratory Results - last 24 hr 01/26/24 01/30/24 01/31/24 10:45 10:45 05:30 WBC 10.0 RBC 2.83 L Hgb 7.1 L Hct 23.6 L MCV 83 MCH 25.1 MCHC 30.1 L RDW Std Deviation 44.8 H Plt Count 351 Neut % (Auto) 62 Lymph % (Auto) 18 [place] % (Auto) 11 Eos % (Auto) 8 Baso % (Auto) 0 Neut # (Auto) 6.2 Lymph # (Auto) 1.8 [place] # (Auto) 1.1 H Eos # (Auto) 0.8 H Baso # (Auto) 0.0 Immature Gran # (Auto) 0.05 H Absolute Nucleated RBC 0.00 Immature Gran % 1 H Nucleated RBC % 0 Sodium 138 Potassium 4.7 Chloride 107 Carbon Dioxide 24.4 Anion Gap 7 BUN 62 H Creatinine 2.7 H Estim Creat Clear Calc 30.3 L eGFR 26 L BUN/Creatinine Ratio 23 H Glucose 121 H Calculated Osmolality 294 Calcium 8.3 Magnesium 2.1 Albumin 3.1 L Ur Random Creatinine 57 Ur Random Sodium 81.2 Ur Random Potassium 26 Ur Random Chloride 82.4 Ur Random Urea Nitrogn 381.0 Urine Total Volume 1780 U Total Protein mg/dL 141 H Ur Total Protein 24 Hr 2510 H ABG Interpretation ABG results: 01/25/24 01/25/24 01/26/24 19:50 20:13 03:33 ABG pH Cancelled 7.36 7.36 ABG pCO2 Cancelled 39 39 ABG pO2 Cancelled 53 L* 77 L D ABG HCO3 Cancelled 22 22 ABG O2 Saturation Cancelled 87 L 96 ABG Base Excess Cancelled -3 -3 Assessment & Plan Additional Assessment & Plan Additional Plan: 63 y/o M with PMHx significant for HFpEF (EF 50 to 55%) DM2, hyperlipidemia, hypertension, prior osteomyelitis of right first toe s/p amputation was admitted to the hospital on 01/24/2024 for acute hypoxic respiratory failure secondary to acute decompensated heart failure exacerbation and sepsis likely secondary to pneumonia versus osteomyelitis. #JOSE MARIA on CKD Patient seems to have combination of cardiorenal syndrome and nonnephrotic range proteinuria as a cause for significant anasarca. JOSE MARIA secondary to prerenal azotemia from CHF decompensation. Underlying chronic kidney disease from diabetic nephropathy. 24-hour urine showed 2.5 g of proteinuria. Had a long conversation with family and patient regarding diuretic dependent/resistant state and need for sequential ultrafiltration if no improvement in edema. Patient agreed. Renal ultrasound showed moderate bilateral renal parenchymal scar formation, no hydronephrosis. U Plan: -Avoid nephrotoxic agents -Renally dose medications -Hold amlodipine -Strict I's and O's -Continue Diuresis with bumex 2mg BID -Will continue to monitor -24-hour urine collection pending #Acute decompensated heart failure exacerbation. #HFpEF (EF 50 to 55% 01/2024). #Acute hypoxic respiratory failure. On oxygen #Bilateral pleural effusions. #Sepsis likely secondary to pneumonia versus osteomyelitis-resolved #Pneumonia #Normocytic normochromic anemia #Hx of DM2 #Hx of hyperlipidemia #Hx of HTN per primary team
--- NOTE | 2024-01-31 12:49 | ESPR_ITS ---
<Statement entered by Jc Barrera MD - 01/31/24 16:17> Senior Resident Attestation: I supervised/discussed management plan with chemist intern physician Dr. Kim, and was involved in the care of this patient. I personally saw and examined the patient and discussed the assessment and plan with the entire medicine team, including my attending. I agree with the assessment and plan as documented. Patient's care was discussed with attending physician, Dr. Huynh. Jc Barrera MD PGY-2. Documentation for date of: 01/31/24 Subjective Subjective Interval history: Patient was seen at bedside this morning. No overnight events. Patient's respiration has improved and is currently on 1 L nasal cannula. He does still has bilateral lower extremity edema 3+, therefore metolazone 5 mg x 1 was given. Continue levofloxacin, ordered PICC line insertion by IR for outpatient IV antibiotics. Cardiology also recommended to increase patient's Coreg to 6.25 twice daily, therefore this was increased. Patient would benefit from SNF. No other complaints at this time. Exam Vital Signs Temp Pulse Resp BP Pulse Ox O2 Del Method O2 Flow Rate 97.6 F 73 19 148/87 H 96 Nasal Cannula 2 01/31/24 12:00 01/31/24 12:00 01/31/24 12:00 01/31/24 12:00 01/31/24 12:00 01/31/24 12:00 01/31/24 12:00 FiO2 45 01/31/24 00:00 Narrative Exam General: A/O x3, mildly diaphoretic Eyes: PERRL, EOMI. Anicteric, vision grossly intact. Ears: No ear pain, no ear discharge, Hearing grossly intact. Nose: No nasal discharge. Mouth/Throat: Dry mucous membranes, no redness, no lesions. Neck: Short neck, non-tender, no cervical lymphadenopathy. Lungs: Clear ANGEL, No accessory muscle use. Cardio: Normal S1/S2, regular rhythm, no murmurs, no JVD Abdomen: Soft, non-tender, no palpable masses, peristalsis present, no guarding or rebound. Extremities: Symmetrical, no significant deformities, 3+ peripheral edema , non-tender, peripheral pulses present, R first toe amputation covered with clean dressing Skin: No rashes, no lesions, warm to touch. Multiple excoriations in entire back and UE. Neuro: No focal neurological deficits. motor and sensory intact Psych: Cooperative, appropriate mood and effect. Objective Labs 02/04/24 10:51 02/04/24 10:51 Labs: Laboratory Results - last 24 hr 01/26/24 01/30/24 01/31/24 10:45 10:45 05:30 WBC 10.0 RBC 2.83 L Hgb 7.1 L Hct 23.6 L MCV 83 MCH 25.1 MCHC 30.1 L RDW Std Deviation 44.8 H Plt Count 351 Neut % (Auto) 62 Lymph % (Auto) 18 [place] % (Auto) 11 Eos % (Auto) 8 Baso % (Auto) 0 Neut # (Auto) 6.2 Lymph # (Auto) 1.8 [place] # (Auto) 1.1 H Eos # (Auto) 0.8 H Baso # (Auto) 0.0 Immature Gran # (Auto) 0.05 H Absolute Nucleated RBC 0.00 Immature Gran % 1 H Nucleated RBC % 0 Sodium 138 Potassium 4.7 Chloride 107 Carbon Dioxide 24.4 Anion Gap 7 BUN 62 H Creatinine 2.7 H Estim Creat Clear Calc 30.3 L eGFR 26 L BUN/Creatinine Ratio 23 H Glucose 121 H Calculated Osmolality 294 Calcium 8.3 Magnesium 2.1 Albumin 3.1 L Ur Random Creatinine 57 Ur Random Sodium 81.2 Ur Random Potassium 26 Ur Random Chloride 82.4 Ur Random Urea Nitrogn 381.0 Urine Total Volume 1780 U Total Protein mg/dL 141 H Ur Total Protein 24 Hr 2510 H ABG Interpretation ABG results: 01/25/24 01/25/24 01/26/24 19:50 20:13 03:33 ABG pH Cancelled 7.36 7.36 ABG pCO2 Cancelled 39 39 ABG pO2 Cancelled 53 L* 77 L D ABG HCO3 Cancelled 22 22 ABG O2 Saturation Cancelled 87 L 96 ABG Base Excess Cancelled -3 -3 Quality Measures Quality Measures VTE prophylaxis (heparin subcutaneously) Assessment & Plan Assessment Current Active Medications: Generic Name Dose Route Start Last Admin Trade Name Freq PRN Reason Stop Dose Admin Acetaminophen 650 mg 01/24/24 19:40 Acetaminophen 325 Mg Tablet PO 02/23/24 19:39 Q6H PRN Fever >101.5 Atorvastatin Calcium 40 mg 01/27/24 21:00 01/30/24 21:22 Atorvastatin Calcium 20 Mg Tablet PO 02/26/24 20:59 40 mg HS ANAMARIA Administration Bumetanide 2 mg 01/26/24 09:00 01/31/24 08:16 Bumetanide Inj 0.25 Mg/Ml Vial 4 Ml IVP 02/25/24 08:59 2 mg BID ANAMARIA Administration Carvedilol 6.25 mg 01/31/24 17:30 Carvedilol 3.125 Mg Tablet PO 03/01/24 17:29 BIDWM ANAMARIA Dextrose 25 ml 01/24/24 19:42 Dextrose 50%-Water Inj 50 Ml Syringe IV 02/23/24 19:41 Q15MIN PRN BG 50-70 responsive npo pt Dextrose 50 ml 01/24/24 19:42 Dextrose 50%-Water Inj 50 Ml Syringe IV 02/23/24 19:41 Q15MIN PRN BG <50 OR BG <70 & pt unresponsive Glucagon 1 mg 01/24/24 19:42 Glucagon Inj 1 Mg Vial IM Q15MIN PRN BG <70, and no IV access Heparin Sodium (Porcine) 5,000 unit 01/24/24 22:00 01/31/24 05:34 Heparin Sod Inj 5000 Unit/Ml Vial SC 02/07/24 21:59 5,000 unit Q8HR ANAMARIA Administration Hydralazine HCl 100 mg 01/28/24 08:15 01/31/24 08:16 Hydralazine Hcl 25 Mg Tablet PO 02/27/24 08:14 100 mg Q8H ANAMARIA Administration Protocol Levofloxacin/Dextrose 750 mg in 150 mls @ 100 mls/hr 01/29/24 10:45 01/31/24 09:56 Levaquin Ivpb IV 02/05/24 10:44 100 mls/hr Q48H ANAMARIA Administration Insulin Glargine 10 unit 01/25/24 09:00 01/31/24 08:21 Insulin Glargine (Lantus) 5 Unit/0.05 Ml (Per 5 Units) SC 02/24/24 08:59 10 unit QDAY ANAMARIA Administration Insulin Human Regular 0 unit 01/24/24 21:00 01/31/24 11:08 Insulin Hum Regular 1 Unit/0.01 Ml (Per Unit) SC 02/23/24 20:59 1 unit ACHS ANAMARIA Administration Protocol Ipratropium [place] 0.5 mg 01/24/24 21:01 01/28/24 16:33 Ipratropium Rt 0.5 Mg/ 2.5 Ml Nebu INH 02/23/24 21:00 0.5 mg Q6HRRT PRN Administration SHORTNESS OF BREATH OR WHEEZE Protocol Levalbuterol HCl 1.25 mg 01/25/24 01:00 01/31/24 06:29 Levalbuterol Rt 1.25 Mg/0.5 Ml Nebu INH 02/24/24 00:59 1.25 mg Q6HRRT ANAMARIA Administration Ondansetron HCl 4 mg 01/25/24 05:02 01/25/24 05:11 Ondansetron Inj 2 Mg/Ml Inj 2 Ml IV 02/24/24 05:01 4 mg Q6HR PRN Administration NAUSEA OR VOMITING Protocol Sodium Chloride 3 ml 01/24/24 21:01 01/31/24 06:29 Sodium Chloride Rt Silvina 0.9% 3 Ml Nebu INH 02/23/24 21:00 3 ml Q6HRRT PRN Administration SOLN Protocol Plan 63-year-old male with past medical history of HFpEF (EF 50 to 55%) DM2, hyperlipidemia, hypertension, prior osteomyelitis of right first toe s/p amputation was admitted to the hospital on 01/24/2024 for acute hypoxic respiratory failure secondary to acute decompensated heart failure exacerbation and sepsis likely secondary to pneumonia versus osteomyelitis. #Acute decompensated heart failure exacerbation #HFpEF (EF 50 to 55% 01/2024) #Acute hypoxic respiratory failure #Bilateral pleural effusions ?Patient came in with shortness of breath, bilateral lower extremity edema, and orthopnea ?Patient's last echo on 09/2023 showed an ejection fraction of 60 to 65% ?Chest x-ray 01/24/24 showed moderate heart failure ? BNP 671 -Echo showed EF 50-55% -Pleural fluid was transudative using lights criteria, most likely due to HF exacerbation. Plan: ?Continue IV Bumex 2mg twice daily -Increased Carvedilol to 6.25mg BID -Metolazone 5mg x1 by cardiology ?Strict CHAR's ?Fluid restrictions 1500 mL daily -Daily weights ?Keep potassium above 4 and magnesium above 2 -Low sodium diet -Cardiology consulted (Dr. Soriano), appreciate recommendations ?Will continue to monitor #Sepsis secondary to osteomyelitis #Pneumonia #Osteomyelitis ?Initially patient met SIRS criteria 2 out of 4 with leukocytosis and tachypnea ?Chest x-ray showed bilateral pneumonia and pleural effusions -CXR 01/27/2024 showed extensive ANGEL PNA ?Right foot x-ray showed osteomyelitis in the amputated first metatarsal and second metatarsophalangeal joint ?WBC 10 ?Discontinue azithromycin and Rocephin -DC's vancomycin [01/25/2024?01/27/2024], Cefepime [01/24-01/28] Plan: ?Continue levofloxacin [01/29/2024?] ?PICC line insertion by IR ordered ?Breathing treatments as needed -Wound care ?Referral to physical therapy ?General Surgery consulted (Dr. Serna), recommended no surgery at the moment and to continue antibiotics #JOSE MARIA on CKD ?Patient has some underlying CKD since last year with GFR in the high 30s to 40s -Baseline Cr 1.9 and was 2.8 on admission -Likely prerenal given heart failure and volume overload status ?BUN 6 and creatinine 2.7 today Plan: ?Avoid nephrotoxic agents ?Renally dose medications -Continue Diuresis -Nephrology consulted, appreciated recommendations ? Will continue to monitor #Scabies ? Patient stated that multiple residents in his rehab center were diagnosed with scabies. ?Patient has multiple excoriations on his entire back and bilateral upper extremities. Plan: ? Permethrin x 1 done on 01/26/2024 ? Contact precautions ?will continue to monitor #Normocytic normochromic anemia ?Patient has a Hx of normocytic anemia with Hgb 10.4 prior to admission - Hgb 7.1 Plan: ?Will transfuse if hemoglobin less than 7 ?Will continue to monitor #Hx of DM2 ?A1c 6.2 on 01/25/2024 Plan: ?ISS ? Accu-Cheks and hypoglycemia protocol ? Will continue to monitor #Hx of hyperlipidemia ?Triglycerides 227, cholesterol 148, LDL 86, HDL 17 on 10/05/2023 Plan: ?Continue atorvastatin 40 mg #Hx of HTN ?Continue amlodipine 10 mg daily -Continue hydralazine 100mg every 8 hours Disposition: Patient seen in telemetry continuing Antibiotic for Sepsis, pending PICC line insertion by IR. Diet: carb consistent GI prophylaxis: not indicated DVT prophylaxis: Heparin sc Code: Full Case disclosed with Attending Dr. Huynh and My senior Dr. Barrera PGY2 Henri Perkins PGY1 Attending Provider Attestation/Addendum 43-year-old male with multiple comorbidities including type 2 diabetes mellitus, hypertension, hyperlipidemia and heart failure with preserved EF who was admitted on 01/24/2024 with shortness of breath found to have acute sided heart failure exacerbation with bilateral pleural effusion IV diuretic therapy. In addition, patient also found to have osteomyelitis patient has a PICC line in place and IV antibiotic therapy until February 27, 2024. I reviewed above note and agree with findings and plans. I have also personally examined the patient with medicine team and went over assessment and plan with medical team including chemist intern and resident physician.
--- NOTE | 2024-01-31 13:22 | PC.SS ---
Rounding: Pending Nepho reccs
--- NOTE | 2024-01-31 14:28 | PC.SS ---
SS was informed patient will need IV ABX. Pending Pic line as well as ID recommendations. SS spoke to patient and he is agreeable to discharge to SNF. SS submitted inquiry to all local SNF's. SS will send the duration,ABX dosage once available to SNF's.
[2024-01-31] MEDS: carVEDILOL 3.125 MG TABLET 6.25 MG PO (16:31)
[2024-01-31] MEDS: ATORVASTATIN CALCIUM 20 MG TABLET 40 MG PO (21:46)
[2024-02-01] VITALS (22 sets, daily range): BP systolic 138–173; BP diastolic 74–91; PULSE 70–82; RESP 13–24; TEMP 35.7–37.1; O2SAT 91–99; BMI 34.2
--- NOTE | 2024-02-01 | XR_ITS ---
Examination: Ultrasound-guided needle placement right basilic vein. Dual-lumen central line placement (PICC line). Fluoroscopy AP chest, portable, single view Exam date and time:February 01, 2024 1446 hours INDICATIONS: Need for long-term intravenous antibiotic therapy for osteomyelitis A timeout was completed verifying correct patient, procedure, site, positioning Informed consent provided Technique: The patient's site was prepped and draped in sterile fashion. Maximum Sterile Barrier Technique used including cap, mask, sterile gown, sterile gloves, and sterile full body drape. If ultrasound technique used: sterile gel and sterile probe covers. Hand Hygiene performed using proper scrub, soap and water, or alcohol-based hand rub. Site right portable ultrasound apparatus utilized to confirm patency of the right basilic vein Utilizing ultrasonographic guidance successful 21-gauge needle puncture into the right basilic vein Ultrasound images recorded and stored. 5 cc 1% lidocaine administered for local anesthetic. Successful micropuncture with a 21-gauge needle is performed. 0.18 wire guide is then introduced into the SVC under fluoroscopic guidance. Dual-lumen catheter dilator is then introduced, followed by the catheter in the SVC and proper position under fluoroscopic guidance. Successful aspiration of blood and flushing with heparinized saline is then performed in the 2 venous limbs. The catheter sutured in place. Findings: Under fluoroscopy, the tip of the catheter is in good position in the vena cava. Portable chest x-ray, post line placement is ordered. Estimated blood loss 3 cc The patient tolerated the procedure well and was in stable and satisfactory condition at completion of the procedure Impression: Successful ultrasound-guided needle placement right basilic vein Successful placement of dual lumen central line, percutaneous Fluoroscopy 0.1 minute radiation dose 2.71 milligray 1 spot fluoroscopic chest film. AP chest completion procedure demonstrates satisfactory position central line. May use central line.
[2024-02-01] MEDS: SODIUM CHLORIDE RT SOL 0.9% 3 ML NEBU INH ×2 (00:58→19:13)
[2024-02-01] MEDS: LEVALBUTEROL RT 1.25 MG/0.5 ML NEBU INH ×4 (00:58→19:13)
[2024-02-01 05:47] LABS: Basophils % (Auto) 0 % (0-2.5); Eosinophils # (Auto) 0.9 Thou/mm3 (0.0-0.5); Eosinophils % (Auto) 9 % (0-10); Hematocrit 24.2 % (41.0-53.0); Immature Granulocytes % (Auto) 1 % (0-0); Immature Granulocytes Auto 0.05 Thou/mm3 (0.00-0.00); Lymphocytes # (Auto) 1.9 Thou/mm3 (1.0-4.8); Lymphocytes % (Auto) 19 % (10-50); Mean Corpuscular HGB Conc 30.2 g/dl (31.0-37.0); Mean Corpuscular Hemoglobin 24.9 pg (25.0-35.0); Mean Corpuscular Volume 83 fL (80-100); Monocytes % (Auto) 10 % (0-12); Neutrophils # (Auto) 6.2 Thou/mm3 (1.8-7.7); Neutrophils % (Auto) 63 % (37-80); Nucleated Red Blood Cell % 0 /100 WBC (0); Platelet Count 378 Thou/mm3 (140-440); RDW Standard Deviation 44.1 fL (35.1-43.9); Red Blood Count 2.93 Miln/mm3 (4.50-5.90)
[2024-02-01 05:48] LABS: Hemoglobin 7.3 g/dL (13.5-16.0)
[2024-02-01] MEDS: HEPARIN SOD INJ 5000 UNIT/ML VIAL SC ×2 (05:48→21:53)
[2024-02-01 06:27] LABS: Anion Gap 7 (7-16); BUN/Creatinine Ratio 21 Ratio (12-20); Blood Urea Nitrogen 62 mg/dL (9-23); Calcium 8.5 mg/dL (8.3-10.6); Carbon Dioxide 24.6 mMol/L (20.0-31.0); Chloride 106 mMol/L (98-107); Creatinine (Component) 2.9 mg/dL (0.6-1.3); Estimated Creatinine Clearance 28.4 mL/min (>60); Glucose 119 mg/dL (74-106); Magnesium 2.2 mg/dL (1.6-2.6); Osmolality,Calculated 294 (275-295); Potassium 4.6 mMol/L (3.4-5.1); Sodium 138 mMol/L (136-145); eGFR 24 See Note
[2024-02-01] MEDS: BUMETANIDE INJ 0.25 MG/ML VIAL 4 ML 2 MG IVP ×2 (08:38→21:53)
[2024-02-01] MEDS: carVEDILOL 3.125 MG TABLET 6.25 MG PO ×2 (08:39→16:41)
[2024-02-01] MEDS: hydrALAZINE HCL 25 MG TABLET 100 MG PO ×2 (08:39→16:41)
[2024-02-01] MEDS: INSULIN GLARGINE (Lantus) 5 UNIT/0.05 ML (PER 5 UNITS) 10 UNIT SC (08:40)
[2024-02-01] MEDS: EPOETIN ALFA-EPBX INJ 10,000 UNIT/ML VIAL (ESRD) 10000 UNIT SC (08:40)
[2024-02-01] MEDS: ferumoxytoL (NON-ESRD) 510 MG in SODIUM CHLORIDE 0.9% 100 ML 234 MG IV (08:40)
--- NOTE | 2024-02-01 08:42 | PD.RESDS ---
Planned Discharge Date 02/01/24 DS: Providers Provider Date of admission: 01/24/24 19:40 Primary care physician: Physician No Primary/Family Admitting Provider: Randy Cruz MD Attending Provider on Admission: Barrett Romano MD Consults: 01/25/24 11:13 Referral Physical Therapy Routine Comment: Physician Instructions: 01/25/24 11:29 Consult to General Surgery Routine Comment: Consulting Provider: Qian Serna 01/26/24 07:15 Referral Wound Care Routine Comment: Instructions: Chronic osteomyelitis amputated first metatarsal with ulcer 01/27/24 10:41 Consult to Cardiology Routine Comment: Consulting Provider: Kyle Soriano 01/29/24 10:35 Consult to Nephrology Stat Comment: Consulting Provider: Regan Main Attending Provider on DC: Maxmie Dominguez MD Discharging Provider: Maxime Dominguez MD Hospital Course Hospital Course Hospital course: Patient is Nigerian-speaking only and interaction facilitated by healthcare shopping investigator Patient was seen and examined at bedside this AM. No acute exents overnight. Patient tolerating diet, adequate urine output and mentation is at baseline. Patient complains of mild SOB at rest and denies any chest pain/pressure currently Patient currently on IV diuresis with Bumex 2 Mg IV twice daily. Fluid balance of negative 1460cc in past 24 hours. Continue diuresis with goal of 1?2 L per day Patient still continues to be hypertensive, but improved SBPs between 130's and 140's overnight An additional dose of Bumex 2mg IV x1 was recommended on 01/28, however it was not given Bicarb uptrended to 24.4 from 23.7 , Cr unchanged at 2.7 and BUN increased to 62 from 61 Patient still has significant LE and Sacral edema, Nephrology was consulted on 01/28 due to worsening JOSE MARIA on CKD Urinalysis was significant for proteinuria and Renal USS significant for B/L renal cortical scarring without hydronephrosis. Nephrotic syndrome secondary to long standing uncontrolled DM was suspected by Nephrology who agree with current management of Bumex 2m IV BID Estimated urine protein 2.5g / 24 hours, out of Nephrotic range. 24 hour urine protein pending Significant edema due to both acute decompensated heart failure exacerbation and possible Nephrotic syndrome Pleural fluid culture from 01/25 grew Staphylococcus hemolyticus. On 11/14 patient had therapeutic paracentesis to the right lung and 1950 cc of pleural fluid was removed. Fluid analysis confirmed a transudative effusion. Coreg dose was decreased to 3.125 p.o. twice daily from 6.25 p.o. twice daily as beta-blockers are contraindicated in severe CHF exacerbation. Patient is now doing better and continues to be hypertensive, can increase Coreg to 6.25 mg po BID Continue hydralazine 100 mg p.o. 3 times daily for better blood pressure control as he is also CKD stage IIIb Amlodipine was held as per Nephrology recommendations Metolazone 5mg po x 1 was given for extra diuresis Ideally patient should be on ARB for better blood pressure control and as part of GDMT, however due to his JOSE MARIA on CKD stage IV hold for now pending Dr. Main, Nephrology recommendations Potassium 4.7 and magnesium 2.1. Continue to maintain potassium greater than 4 and magnesium greater than 2 at all times to prevent any arrhythmias. Time Spent with Patient Time attestation: Total time spent providing and/or coordinating discharge services: Home Health Home Health Referral Orders: 01/31/24 10:25 Home Health Referral Routine Reason For Exam: IV antibiotics Home-Bound The patient must either because of illness or injury, need the aid of supportive devices such as crutches, canes, wheelchairs, and walkers; the use of special transportation; or the assistance of another person in order to leave their place of residence; OR have a condition such that leaving his or her home is medically contraindicated. In addition, the patient also meets the following criteria: patient is normally unable to leave the home and leaving home requires considerable taxing effort. Addendum to Home Health Certification Practitioner's Certification: I certify that the patient has been under my care in the hospital and the care of attending physician (see below). We had a [id number] encounter on (see date below). My clinical findings indicate that the patient is home bound per the above criteria and the Home Health Services noted in these orders are medically necessary. The primary reason for the [id number] encounter is related to the fact that the patient requires home health services. Date Certifying [id number] Physician Encounter: 01/24/24 Physician's Name who will Assume Oversight for Services: Physician No Primary/Family CLINICAL TRAINING SPECIALIST - Community Resources: No PT to Evaluate: No PT to evaluate and provide a treatmnet plan to increase patient's mobility and strength. Wound Care: Yes Home Health RN - Wound Care Order: per wound team IV Therapy: Yes IV Medication: Rocephin IV Dose: 2gram IV Frequency: daily IV Stop Date: 03/06/24 Discontinue PICC Line Once Treatment Complete: Yes RN Safety Evaluation: Yes RN to evaluate and create a plan of care that will produce positive outcomes. Palliative Treatment: No Palliative treatment and evaluate the need for hospice. Home Health Aide - Personal Care: No Home Health Aide to assist with any ADL's. Exam Vital Signs Temp Pulse Resp BP Pulse Ox O2 Del Method O2 Flow Rate 96.3 F L 74 16 152/74 H 97 Nasal Cannula 1 02/01/24 08:00 02/01/24 08:39 02/01/24 08:00 02/01/24 08:39 02/01/24 08:00 02/01/24 08:00 02/01/24 08:00 FiO2 0 02/01/24 04:00 Discharge Plan Prescriptions/Referrals Prescriptions/Med Rec: No Action amlodipine 10 mg tablet 10 mg PO QDAY Qty: 30 0RF hydrocodone-acetaminophen 10-300 mg tablet 1 tab PO Q8H MDD 3 PRN (Reason: pain) Qty: 15 0RF clonidine HCl 0.1 mg Tablet 0.1 mg PO BID insulin glargine [Lantus Solostar U-100 Insulin] 100 unit/mL (3 mL) Insulin Pen 15 unit SUBCUT HS furosemide [Lasix] 20 mg tablet 40 mg PO TID Referrals: No Primary/Family,Physician [Primary Care Provider] - Patient/Caregiver Discharge Instructions Education Materials: Thoracentesis Dc Print Language: Nigerian
--- NOTE | 2024-02-01 09:44 | PD.RESPRO ---
Documentation for date of: 02/01/24 Subjective Subjective Interval history: Patient is [place] Islander-speaking only and interaction facilitated by healthcare site interpreter Patient was seen and examined at bedside this AM. No acute exents overnight. Patient tolerating diet, adequate urine output and mentation is at baseline. Patient complains of mild SOB at rest and denies any chest pain/pressure currently. Patient currently on IV diuresis with Bumex 2 Mg IV twice daily. Fluid balance of negative 1970cc in past 24 hours. Continue diuresis with goal of 1?2 L per day Patient still continues to be hypertensive, but improved SBPs between 130's and 140's overnight An additional dose of Bumex 2mg IV x1 was recommended on 01/28, however it was not given Bicarb uptrended to 24.6 from 24.4 , Cr increased to 2.9 from 2.7 and BUN unchanged at 62 Patient still has significant LE and Sacral edema but much improved, Nephrology was consulted on 01/28 due to worsening JOSE MARIA on CKD and significant proteinuria Urinalysis was significant for proteinuria and Renal USS significant for B/L renal cortical scarring without hydronephrosis. Nephrotic syndrome secondary to long standing uncontrolled DM was suspected by Nephrology who agree with current management of Bumex 2m IV BID Estimated urine protein 2.5g / 24 hours, out of Nephrotic range. 24 hour urine protein 2.5g / 24 hours. Nephrotic syndrome ruled out. Significant edema due to both acute decompensated heart failure exacerbation and possible Nephrotic syndrome Pleural fluid culture from 01/25 grew Staphylococcus hemolyticus. On 01/27 patient had therapeutic paracentesis to the right lung and 1950 cc of pleural fluid was removed. Fluid analysis confirmed a transudative effusion. Coreg dose was decreased to 3.125 p.o. twice daily from 6.25 p.o. twice daily as beta-blockers are contraindicated in severe CHF exacerbation. Patient is now doing better and continues to be hypertensive, can increase Coreg to 6.25 mg po BID Continue hydralazine 100 mg p.o. 3 times daily for better blood pressure control as he is also CKD stage IIIb Amlodipine was held as per Nephrology recommendations Metolazone 5mg po x 1 was given for extra diuresis on 01/30 Ideally patient should be on ARB for better blood pressure control and as part of GDMT, however due to his JOSE MARIA on CKD stage IV hold for now pending Dr. Main, Nephrology recommendations Potassium 4.7 and magnesium 2.1. Continue to maintain potassium greater than 4 and magnesium greater than 2 at all times to prevent any arrhythmias. Exam Vital Signs Temp Pulse Resp BP Pulse Ox O2 Del Method O2 Flow Rate 96.3 F L 74 16 152/74 H 97 Nasal Cannula 1 02/01/24 08:00 02/01/24 08:39 02/01/24 08:00 02/01/24 08:39 02/01/24 08:00 02/01/24 08:00 02/01/24 08:00 FiO2 0 02/01/24 04:00 Narrative Exam Constitutional Alert, oriented x 3 and Comfortable. On 2 L O2 via NC. Can speak full sentences HEENT Vision grossly intact. Patent nares. Trachea midline Respiratory Chest normal on inspection and decreased AE at bases b/l. Bandage on left and right back from thoracentesis noted Cardiovascular S1 and S2 audible, RRR. No murmurs carotid bruit. No gross JVD. Abdominal Soft,obese and non tender to palpation in all quadrants. BS + Genitourinary No bladder tenderness, no flank pain. Normal to palpation. No scrotal edema Musculoskeletal Extremities tone within normal limits. 2+ LE edema up to knees B/L. 1+ Edema of thighs b/l and sacral edema, much improved. Bandage noted on R foot Neurological CN II - XII grossly intact. Extremity motor and sensation grossly intact. Skin Warm, dry and intact. No apparent lesions. Psychiatric Patient has good affect, is cooperative Objective Labs 02/01/24 05:02 02/01/24 05:02 Labs: Laboratory Results - last 24 hr 01/26/24 01/30/24 02/01/24 10:45 10:45 05:02 WBC 10.0 RBC 2.93 L Hgb 7.3 L Hct 24.2 L MCV 83 MCH 24.9 L MCHC 30.2 L RDW Std Deviation 44.1 H Plt Count 378 Neut % (Auto) 63 Lymph % (Auto) 19 Gladwin % (Auto) 10 Eos % (Auto) 9 Baso % (Auto) 0 Neut # (Auto) 6.2 Lymph # (Auto) 1.9 Gladwin # (Auto) 1.0 H Eos # (Auto) 0.9 H Baso # (Auto) 0.0 Immature Gran # (Auto) 0.05 H Absolute Nucleated RBC 0.00 Immature Gran % 1 H Nucleated RBC % 0 Sodium 138 Potassium 4.6 Chloride 106 Carbon Dioxide 24.6 Anion Gap 7 BUN 62 H Creatinine 2.9 H Estim Creat Clear Calc 28.4 L eGFR 24 L BUN/Creatinine Ratio 21 H Glucose 119 H Calculated Osmolality 294 Calcium 8.5 Magnesium 2.2 Ur Random Creatinine 57 Ur Random Sodium 81.2 Ur Random Potassium 26 Ur Random Chloride 82.4 Ur Random Urea Nitrogn 381.0 Urine Total Volume 1780 U Total Protein mg/dL 141 H Ur Total Protein 24 Hr 2510 H ABG Interpretation ABG results: 01/25/24 01/25/24 01/26/24 19:50 20:13 03:33 ABG pH Cancelled 7.36 7.36 ABG pCO2 Cancelled 39 39 ABG pO2 Cancelled 53 L* 77 L D ABG HCO3 Cancelled 22 22 ABG O2 Saturation Cancelled 87 L 96 ABG Base Excess Cancelled -3 -3 Quality Measures Quality Measures VTE prophylaxis (heparin subcutaneously) Assessment & Plan Assessment Current Active Medications: Generic Name Dose Route Start Last Admin Trade Name Freq PRN Reason Stop Dose Admin Acetaminophen 650 mg 01/24/24 19:40 Acetaminophen 325 Mg Tablet PO 02/23/24 19:39 Q6H PRN Fever >101.5 Atorvastatin Calcium 40 mg 01/27/24 21:00 01/31/24 21:46 Atorvastatin Calcium 20 Mg Tablet PO 02/26/24 20:59 40 mg HS ANAMARIA Administration Bumetanide 2 mg 01/26/24 09:00 02/01/24 08:38 Bumetanide Inj 0.25 Mg/Ml Vial 4 Ml IVP 02/25/24 08:59 2 mg BID ANAMARIA Administration Carvedilol 6.25 mg 01/31/24 17:30 02/01/24 08:39 Carvedilol 3.125 Mg Tablet PO 03/01/24 17:29 6.25 mg BIDWM ANAMARIA Administration Dextrose 25 ml 01/24/24 19:42 Dextrose 50%-Water Inj 50 Ml Syringe IV 02/23/24 19:41 Q15MIN PRN BG 50-70 responsive npo pt Dextrose 50 ml 01/24/24 19:42 Dextrose 50%-Water Inj 50 Ml Syringe IV 02/23/24 19:41 Q15MIN PRN BG <50 OR BG <70 & pt unresponsive Glucagon 1 mg 01/24/24 19:42 Glucagon Inj 1 Mg Vial IM Q15MIN PRN BG <70, and no IV access Heparin Sodium (Porcine) 5,000 unit 01/24/24 22:00 02/01/24 05:48 Heparin Sod Inj 5000 Unit/Ml Vial SC 02/07/24 21:59 5,000 unit Q8HR ANAMARIA Administration Hydralazine HCl 100 mg 01/28/24 08:15 02/01/24 08:39 Hydralazine Hcl 25 Mg Tablet PO 02/27/24 08:14 100 mg Q8H ANAMARIA Administration Protocol Levofloxacin/Dextrose 750 mg in 150 mls @ 100 mls/hr 01/29/24 10:45 01/31/24 09:56 Levaquin Ivpb IV 02/05/24 10:44 100 mls/hr Q48H ANAMARIA Administration Insulin Glargine 10 unit 01/25/24 09:00 02/01/24 08:40 Insulin Glargine (Lantus) 5 Unit/0.05 Ml (Per 5 Units) SC 02/24/24 08:59 10 unit QDAY [facility] Administration Insulin Human Regular 0 unit 01/24/24 21:00 02/01/24 08:17 Insulin Hum Regular 1 Unit/0.01 Ml (Per Unit) SC 02/23/24 20:59 Not Given ACHS [facility] Protocol Ipratropium Arlee 0.5 mg 01/24/24 21:01 01/28/24 16:33 Ipratropium Rt 0.5 Mg/ 2.5 Ml Nebu INH 02/23/24 21:00 0.5 mg Q6HRRT PRN Administration SHORTNESS OF BREATH OR WHEEZE Protocol Levalbuterol HCl 1.25 mg 01/25/24 01:00 02/01/24 06:53 Levalbuterol Rt 1.25 Mg/0.5 Ml Nebu INH 02/24/24 00:59 1.25 mg Q6HRRT ANAMARIA Administration Ondansetron HCl 4 mg 01/25/24 05:02 01/25/24 05:11 Ondansetron Inj 2 Mg/Ml Inj 2 Ml IV 02/24/24 05:01 4 mg Q6HR PRN Administration NAUSEA OR VOMITING Protocol Sodium Chloride 3 ml 01/24/24 21:01 02/01/24 00:58 Sodium Chloride Rt Silvina 0.9% 3 Ml Nebu INH 02/23/24 21:00 3 ml Q6HRRT PRN Administration SOLN Protocol Plan Patient is a 63-year-old male with a past medical history significant for essential hypertension for more than 20 years, hyperlipidemia does not appear to be statin at home, insulin-dependent diabetes mellitus type 2 [6.2] more than 30 years and CKD stage 3 B. Does not have a primary care doctor. Patient presented to the ED on 01/23 with a chief complaint of SOB and chest discomfort for 1 week. Cardiology was consulted for acute decompensated heart failure. 1. Acute respiratory failure with hypoxia Secondary to 2. Anasarca - Acute decompensated heart failure with preserved ejection fraction [50-55%] 3. Nephrotic syndrome ruled out 4. B/L pleural effusions On admission patient was SOB at rest associated with chest discomfort for the past week which worsened the day of admission. BNP was elevated at 671 and troponin were negative on admission. Patient's home diuretic hydrochlorothiazide 50 Mg p.o. daily and furosemide 20 Mg p.o. daily. Chest x-ray showed moderate vascular congestion with bilateral pleural effusion and possible superimposed lower lobe consolidation bilateral. EKG showed sinus rhythm rate 95 NYHA stage C class IV Transthoracic echocardiogram completed on 01/26/2024 findings include: Normal LV size and function. Estimated EF 50-55% Normal RV size and function. Trace MR, TR. Left pleural effusion present. Previous echocardiogram from 10/06/2023: Normal LV size and function. Stage I diastolic dysfunction. Estimated EF 60-65%. Initially patient was diuresed with Lasix 40 Mg IV daily but was minimally responsive and was eventually switched to Bumex 2 Mg IV twice daily with better response. Patient also had therapeutic/diagnostic Left thoracentesis done 01/25 for bilateral large pleural effusion. Approximately 600 cc of straw-colored fluid was drained and pleural fluid analysis was significant for transudative picture confirming etiology of CHF. Patient currently on IV diuresis with Bumex 2 Mg IV twice daily. On 01/28 an additional dose of Bumex 2mg IV x 1 was recommended, but not given. Fluid balance of negative 1970cc in past 24 hours. Continue diuresis with goal of 1?2 L per day Patient still continues to be hypertensive, but improved SBPs between 130's and 140's overnight On 01/27 patient had therapeutic paracentesis to the right lung and 1950 cc of pleural fluid was removed. Fluid analysis confirmed a transudative effusion. Metolazone 5mg po x 1 was given for extra diuresis on 01/30 Ideally patient should be on ARB for better blood pressure control and as part of GDMT, however due to his JOSE MARIA on CKD stage IV hold for now pending Dr. Main, Nephrology recommendations Pleural fluid culture from 01/25 grew Staphylococcus hemolyticus. Plan: ? Strict input output charting ? 2 g sodium restricted diet ? 1500 cc a day fluid restriction ? Aim for diuresis of 1?2 L per day - Beta-blockers contraindicated in severe CHF exacerbation, can decrease dosage or hold at this time. - Coreg dose was decreased to 3.125 p.o. twice daily from 6.25 p.o. twice daily on 01/27, patient's CHF exacerbation now improved, can increase COreg to 6.25 mg po BID for better blood pressure control ? Continue diuresis with Bumex 2 Mg IV twice daily - Recommend goal-directed medical therapy for heart failure. Patient may not be able to start Entresto due to his CKD but can start spironolactone at a later time. Patient also appears to be on SGLT2 as part of his home medication which can also be restarted on discharge. ? Maintain potassium greater than 4 and Mg greater than 2 at all times to prevent any arrhythmias. 5. Proteinuria Patient still has significant LE and Sacral edema, Nephrology was consulted yesterday due to worsening JOSE MARIA on CKD Urinalysis was significant for nephrotic range proteinuria and Renal USS significant for B/L renal cortical scarring without hydronephrosis. Nephrotic syndrome secondary to long standing uncontrolled DM was suspected by Dr. Main, Laboratory Supervisor who agrees with current management of Bumex 2m IV BID Estimated urine protein 2.5g / 24 hours, out of Nephrotic range. 24 hour urine protein pending Significant edema due to both acute decompensated heart failure exacerbation and possible Nephrotic syndrome 6. Essential hypertension Unsure of patient's home medication as he cannot recall the names and medication reconciliation not completed. It appears he might have been on amlodipine 10 Mg p.o. daily, furosemide 20 Mg p.o. daily and hydrochlorothiazide 50 Mg p.o. daily and Coreg 6.25 Mg p.o. twice daily. On admission patient's BP 175/85 Patient still continues to be hypertensive, but better SBP's between 130s and 140s overnight Plan: ? Amlodipine held as per Nephrology recommendations - Recommend to continue hydralazine 100 mg p.o. 3 times daily for better blood pressure control as he is also JOSE MARIA on CKD stage IV - Can increase Coreg to 6.25mg po BID from 3.125mg po BID for better blood pressure control - Ideally patient should be on ARB for better blood pressure control and as part of GDMT, however due to his JOSE MARIA on CKD stage IV hold for now pending Dr. Main, Nephrology recommendations - Recommend excellent control of blood pressure with systolic less than 140 mmHg. 7. Hyperlipidemia Upon chart review patient's last lipid panel from 10/05/2023 showed triglycerides 227, cholesterol 148, LDL 86. Patient does not appear to have been on a statin at home. Plan: ? Recommend high intensity statin, atorvastatin 40 Mg p.o. at bedtime 8. Sepsis secondary to community-acquired pneumonia. On admission patient met SIRS 2/4. RR 24 and WBC 15.4. Chest x-ray showed bilateral lower lobe consolidation as source of infection. Procalcitonin was within normal limits on admission as well as lactic acid level. Patient did not have any fever during visit. Sputum Gram stain done on 01/25 showed 2+ GPC and rare WBCs, sputum culture still pending. Patient currently hypotensive with BP 151/86 and similar trend over the course of admission, no concern for hypotension at this time. Patient was treated with 2 days of azithromycin and Rocephin IV as well as vancomycin IV for 2 days. Patient is currently treated with cefepime. Blood cultures are currently pending with preliminary report no bacterial growth after 48 hours. Plan: ? Continue management as per primary team 9. JOSE MARIA on CKD stage IIIb Patient's baseline CR between 1.9?2. On admission patient CR 2.8. Etiology likely prerenal in the setting of CHF exacerbation. Continue management as per primary team and Nephrology 10. Insulin-dependent diabetes mellitus type 2 [6.2] Patient had diabetes mellitus for the past 30 years and currently on insulin, empagliflozin/metformin and Ozempic at home. Most recent HbA1c 6.2% from this admission. Continue management as per primary team 11. Right foot osteomyelitis s/p transmetatarsal amputation [September 2023] Patient has history of poorly controlled diabetes in the past leading to right foot ulcer and eventual osteomyelitis leading to amputation earlier this year. On this admission foot x-ray showed cortical bone destruction at the end of the first metatarsal as well as distal second metatarsal and proximal phalanx second digit. Negative for gas gangrene or acute osteomyelitis. Patient was evaluated by general surgeon, Dr Serna who assessed patient to have a superficial ulcer and not acute osteomyelitis. Foot ulcer unlikely source of patient's sepsis. 12. Normocytic anemia On admission patient's Hb 8.9, from chart review baseline appears to be between 10?11. Currently Hb 7.3 Reccomend to transfuse with PRBC if Hb < 7 DDx: Iron deficiency anemia, anemia of chronic disease, thalassemia, sideroblastic anemia, lead poisoning. Iron panel from this admission showed iron low 18, TIBC low 243 and ferritin within normal limits 132 Etiology possibly multifactorial iron deficiency also anemia of chronic disease secondary to CKD. Recommend IV iron once sepsis resolves and Epogen on this admission for optimization of Hb. 13. Possible scabies Patient states that multiple residents at his rehab center were recently diagnosed with scabies. Patient also has multiple excoriations on his back and upper extremities. Patient was treated with permethrin x 1 on 01/26/2003/04/2024 and contact precautions were initiated. Contact precautions were removed Continue rest of management as per primary team. We are grateful to be able to participate in Mr. Sandoval' care. Thank you for the consult Plan of care discussed with attending Director Of Sports Performance, Dr Christie Dominguez MD PGY 1 Attending Provider Attestation/Addendum I have personally seen and examined the patient separately on the above date of service and discussed the plan of care with the resident. I reviewed the resident Dr. Dominguez consultation progress note and agree with the resident findings and plan in the note above and have also edited the documentation to reflect my findings and plan. Kyle Soirano M.D. Interventional Cardiology
--- NOTE | 2024-02-01 10:54 | ESPR_ITS ---
Documentation for date of: 02/01/24 Subjective Subjective Interval history: Mr. Sandoval is a 63 y/o M with PMHx significant for type 2 diabetes mellitus, hyperlipidemia, and hypertension who presents with shortness of breath and chest discomfort. Symptoms started approximately a week ago but acutely worsened overnight to the point where he would get short of breath after just a few steps, prompting him to come to the ED. Endorses orthopnea, PND, and bilateral lower extremity edema. Regarding his chest pain, describes it as substernal, pressure-like, worse with activity, and does not subside with rest. 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 Previously admitted and treated for osteomyelitis of right hallux on 09/2023 and underwent transmetatarsal amputation discharged with 7-day course of doxycycline that patient completed. Patient was hypertensive at 175/85 and hypoxic 86% on room air increased to 98% on 8 L oxy mask in the ED. Chest x-ray showed vascular congestion, bilateral pleural effusions. Patient received DuoNebs, ceftriaxone, and 40 mg Lasix in the ED. Patient admitted for acute hypoxic respiratory failure secondary to acute decompensated heart failure exacerbation and sepsis likely secondary to pneumonia versus osteomyelitis. Patient labs on admission showed BUN 56, creatinine 2.8, eGFR 25 compared to baseline BUN 40, baseline creatinine 1.9, baseline eGFR 39. Patient has been treated for presumptive prerenal JOSE MARIA due to volume overload with Bumex 2 mg IV twice daily, patient has not shown improvement in renal function. Urinalysis shows nephrotic range proteinuria 3+. Nephrology consulted for worsening JOSE MARIA on CKD despite diuretic treatment. Patient seen and examined on the floors. Patient resting in bed, appears mildly distressed and chronically ill. Patient has clear signs of fluid overload: Anasarca, crackles on lung auscultation. Held patient's amlodipine due to risk of increased edema. At time of exam labs showed BUN 61, creatinine 2.5, eGFR 28. Additional urine studies ordered. Renal ultrasound performed, showed moderate bilateral renal parenchymal scar formation, no hydronephrosis. 01/29: Patient seen and examined in telemetry. Patient appears mildly uncomfortable, ill appearing. Patient was anemic at 6.9 hemoglobin, repeat H&H showed hemoglobin 7.4. Patient remains severely fluid overloaded. BUN 61, creatinine 2.7, eGFR 26. Random urine creatinine?68, urine total protein 169, ratio 2.4. PTH 89. 24-hour urine collection pending. 1.9 L in, 1.5 L. 01/31/2024 patient currently seen in telemetry. Family at bedside.24-hour urine showed 2.5 g of protein per day. WBC 10, hemoglobin 7.1, platelets 351. Sodium 138, potassium 4.7, BUN 62, creatinine 2.7, GFR 26, phosphorus 4, ferritin 132, iron saturation 7, alk phos 142, albumin 3.1, B12 342, vitamin D23.5, PTH 89, urinalysis shows proteinuria. Patient had 2.1 L of urine. 01/31: Patient seen and examined in telemetry. Hg 7.3, sodium 138, potassium 4.6, bicarb 24.6, BUN 62, creatinine 2.1, eGFR 25. Patient remains fluid overloaded, improving. 3.6L urine output. Exam Vital Signs Temp Pulse Resp BP Pulse Ox O2 Del Method O2 Flow Rate 96.3 F L 74 16 152/74 H 97 Nasal Cannula 1 02/01/24 08:00 02/01/24 08:39 02/01/24 08:00 02/01/24 08:39 02/01/24 08:00 02/01/24 08:00 02/01/24 08:00 FiO2 0 02/01/24 04:00 Narrative Exam PE: Gen: Well-developed and well-nourished. HEENT: NCAT, PERRLA, EOMI, MMM, anicteric conjunctivae. CVS: normal S1 and S2. RRR. No M/R/G. Resp: Bilateral crackles. Abd: Mildly tender, distended, anasarca MSK: Good ROM in BUE & BLE. Bilateral lower extremity edema with skin changes secondary to chronic PAD. Sacral edema. Neuro: CN II-XII grossly intact. Strength 5/5 in BUE & BLE. Alert and oriented x3. Psych: appropriate mood and affect. Objective Labs 02/02/24 05:54 02/02/24 05:54 Labs: Laboratory Results - last 24 hr 01/26/24 01/30/24 02/01/24 10:45 10:45 05:02 WBC 10.0 RBC 2.93 L Hgb 7.3 L Hct 24.2 L MCV 83 MCH 24.9 L MCHC 30.2 L RDW Std Deviation 44.1 H Plt Count 378 Neut % (Auto) 63 Lymph % (Auto) 19 [place] % (Auto) 10 Eos % (Auto) 9 Baso % (Auto) 0 Neut # (Auto) 6.2 Lymph # (Auto) 1.9 [place] # (Auto) 1.0 H Eos # (Auto) 0.9 H Baso # (Auto) 0.0 Immature Gran # (Auto) 0.05 H Absolute Nucleated RBC 0.00 Immature Gran % 1 H Nucleated RBC % 0 Sodium 138 Potassium 4.6 Chloride 106 Carbon Dioxide 24.6 Anion Gap 7 BUN 62 H Creatinine 2.9 H Estim Creat Clear Calc 28.4 L eGFR 24 L BUN/Creatinine Ratio 21 H Glucose 119 H Calculated Osmolality 294 Calcium 8.5 Magnesium 2.2 Ur Random Creatinine 57 Ur Random Sodium 81.2 Ur Random Potassium 26 Ur Random Chloride 82.4 Ur Random Urea Nitrogn 381.0 Urine Total Volume 1780 U Total Protein mg/dL 141 H Ur Total Protein 24 Hr 2510 H ABG Interpretation ABG results: 01/25/24 01/25/24 01/26/24 19:50 20:13 03:33 ABG pH Cancelled 7.36 7.36 ABG pCO2 Cancelled 39 39 ABG pO2 Cancelled 53 L* 77 L D ABG HCO3 Cancelled 22 22 ABG O2 Saturation Cancelled 87 L 96 ABG Base Excess Cancelled -3 -3 Quality Measures Quality Measures VTE prophylaxis (heparin subcutaneously) Assessment & Plan Assessment Current Active Medications: Generic Name Dose Route Start Last Admin Trade Name Yoan PRN Reason Stop Dose Admin Acetaminophen 650 mg 01/24/24 19:40 Acetaminophen 325 Mg Tablet PO 02/23/24 19:39 Q6H PRN Fever >101.5 Atorvastatin Calcium 40 mg 01/27/24 21:00 01/31/24 21:46 Atorvastatin Calcium 20 Mg Tablet PO 02/26/24 20:59 40 mg HS ANAMARIA Administration Bumetanide 2 mg 01/26/24 09:00 02/01/24 08:38 Bumetanide Inj 0.25 Mg/Ml Vial 4 Ml IVP 02/25/24 08:59 2 mg BID ANAMARIA Administration Carvedilol 6.25 mg 01/31/24 17:30 02/01/24 08:39 Carvedilol 3.125 Mg Tablet PO 03/01/24 17:29 6.25 mg BIDWM ANAMARIA Administration Dextrose 25 ml 01/24/24 19:42 Dextrose 50%-Water Inj 50 Ml Syringe IV 02/23/24 19:41 Q15MIN PRN BG 50-70 responsive npo pt Dextrose 50 ml 01/24/24 19:42 Dextrose 50%-Water Inj 50 Ml Syringe IV 02/23/24 19:41 Q15MIN PRN BG <50 OR BG <70 & pt unresponsive Glucagon 1 mg 01/24/24 19:42 Glucagon Inj 1 Mg Vial IM Q15MIN PRN BG <70, and no IV access Heparin Sodium (Porcine) 5,000 unit 01/24/24 22:00 02/01/24 05:48 Heparin Sod Inj 5000 Unit/Ml Vial SC 02/07/24 21:59 5,000 unit Q8HR ANAMARIA Administration Hydralazine HCl 100 mg 01/28/24 08:15 02/01/24 08:39 Hydralazine Hcl 25 Mg Tablet PO 02/27/24 08:14 100 mg Q8H ANAMARIA Administration Protocol Levofloxacin/Dextrose 750 mg in 150 mls @ 100 mls/hr 01/29/24 10:45 01/31/24 09:56 Levaquin Ivpb IV 02/05/24 10:44 100 mls/hr Q48H ANAMARIA Administration Insulin Glargine 10 unit 01/25/24 09:00 02/01/24 08:40 Insulin Glargine (Lantus) 5 Unit/0.05 Ml (Per 5 Units) SC 02/24/24 08:59 10 unit QDAY ANAMARIA Administration Insulin Human Regular 0 unit 01/24/24 21:00 02/01/24 08:17 Insulin Hum Regular 1 Unit/0.01 Ml (Per Unit) SC 02/23/24 20:59 Not Given ACHS [facility] Protocol Ipratropium [place] 0.5 mg 01/24/24 21:01 01/28/24 16:33 Ipratropium Rt 0.5 Mg/ 2.5 Ml Nebu INH 02/23/24 21:00 0.5 mg Q6HRRT PRN Administration SHORTNESS OF BREATH OR WHEEZE Protocol Levalbuterol HCl 1.25 mg 01/25/24 01:00 02/01/24 06:53 Levalbuterol Rt 1.25 Mg/0.5 Ml Nebu INH 02/24/24 00:59 1.25 mg Q6HRRT ANAMARIA Administration Ondansetron HCl 4 mg 01/25/24 05:02 01/25/24 05:11 Ondansetron Inj 2 Mg/Ml Inj 2 Ml IV 02/24/24 05:01 4 mg Q6HR PRN Administration NAUSEA OR VOMITING Protocol Sodium Chloride 3 ml 01/24/24 21:01 02/01/24 00:58 Sodium Chloride Rt Silv[place] 0.9% 3 Ml Nebu INH 02/23/24 21:00 3 ml Q6HRRT PRN Administration SOLN Protocol Plan 63 y/o M with PMHx significant for HFpEF (EF 50 to 55%) DM2, hyperlipidemia, hypertension, prior osteomyelitis of right first toe s/p amputation was admitted to the hospital on 01/24/2024 for acute hypoxic respiratory failure secondary to acute decompensated heart failure exacerbation and sepsis likely secondary to pneumonia versus osteomyelitis. #JOSE MARIA on CKD Patient has some underlying CKD since last year with GFR in the high 30s to 40s. Baseline Cr 1.9 and BUN 40, BUN 56 and creatinine 2.8 on admission. Suspect prerenal given heart failure and volume overload status. Kidney function continued to worsen despite treatment with diuresis. Nephrology consulted due to worsening JOSE MARIA on CKD. Urinalysis showed 3+ protein, nephrotic range. Renal ultrasound showed moderate bilateral renal parenchymal scar formation, no hydronephrosis. Urine total protein 169, urine creatinine 68, ratio 2.4. PTH 89. Suspect worsening CKD due to diabetes, HgA1c 6.2% as of 01/25/24. Discussed need for potential dialysis with the patient. 24-hour urine collection showed 2.5g protein. Plan: -Avoid nephrotoxic agents -Renally dose medications -Hold amlodipine -Strict I's and O's -Continue Diuresis with bumex 2mg BID -Will continue to monitor #Acute decompensated heart failure exacerbation. #HFpEF (EF 50 to 55% 01/2024). #Acute hypoxic respiratory failure. #Bilateral pleural effusions. #Sepsis likely secondary to pneumonia versus osteomyelitis #Pneumonia #Osteomyelitis #Scabies #Normocytic normochromic anemia #Hx of DM2 #Hx of hyperlipidemia #Hx of HTN Management as per primary team Thank you for allow me to participate in the care of this patient. Plan of care discussed with attending Dr. Main. Les Godwin MD PGY-1 Attending Provider Attestation/Addendum patient seen and examined with resident physician Dr. Godwin. Note reviewed, agree with findings and recommendations with changes made. Continue with diuretics
--- NOTE | 2024-02-01 11:15 | ESPR_ITS ---
<Statement entered by Jc Barrera MD - 02/01/24 15:06> Senior Resident Attestation: I supervised/discussed management plan with art gallery internship physician Dr. Kim, and was involved in the care of this patient. I personally saw and examined the patient and discussed the assessment and plan with the entire medicine team, including my attending. I agree with the assessment and plan as documented. Patient's care was discussed with attending physician, Dr. Huynh. Jc Barrera MD PGY-2. Documentation for date of: 02/01/24 Subjective Subjective Interval history: Patient was seen at bedside this morning. No overnight events. Patient is to get PICC line today for continuation of antibiotics as outpatient. Patient states seeing improvement in his respiration and no other complaints at this time. Will continue diuresis. Exam Vital Signs Temp Pulse Resp BP Pulse Ox O2 Del Method O2 Flow Rate 96.3 F L 74 16 152/74 H 97 Nasal Cannula 1 02/01/24 08:00 02/01/24 08:39 02/01/24 08:00 02/01/24 08:39 02/01/24 08:00 02/01/24 08:00 02/01/24 08:00 FiO2 0 02/01/24 04:00 Narrative Exam General: A/O x3, no acute distress Eyes: PERRL, EOMI. Anicteric, vision grossly intact. Ears: No ear pain, no ear discharge, Hearing grossly intact. Nose: No nasal discharge. Mouth/Throat: Dry mucous membranes, no redness, no lesions. Neck: Short neck, non-tender, no cervical lymphadenopathy. Lungs: Clear ANGEL, No accessory muscle use. Cardio: Normal S1/S2, regular rhythm, no murmurs, no JVD Abdomen: Soft, non-tender, no palpable masses, peristalsis present, no guarding or rebound. Extremities: Symmetrical, no significant deformities, 3+ peripheral edema , non-tender, peripheral pulses present, R first toe amputation covered with clean dressing Skin: No rashes, no lesions, warm to touch. Multiple excoriations in entire back and UE. Neuro: No focal neurological deficits. motor and sensory intact Psych: Cooperative, appropriate mood and effect. Objective Labs 02/04/24 10:51 02/04/24 10:51 Labs: Laboratory Results - last 24 hr 01/26/24 01/30/24 02/01/24 10:45 10:45 05:02 WBC 10.0 RBC 2.93 L Hgb 7.3 L Hct 24.2 L MCV 83 MCH 24.9 L MCHC 30.2 L RDW Std Deviation 44.1 H Plt Count 378 Neut % (Auto) 63 Lymph % (Auto) 19 [place] % (Auto) 10 Eos % (Auto) 9 Baso % (Auto) 0 Neut # (Auto) 6.2 Lymph # (Auto) 1.9 [place] # (Auto) 1.0 H Eos # (Auto) 0.9 H Baso # (Auto) 0.0 Immature Gran # (Auto) 0.05 H Absolute Nucleated RBC 0.00 Immature Gran % 1 H Nucleated RBC % 0 Sodium 138 Potassium 4.6 Chloride 106 Carbon Dioxide 24.6 Anion Gap 7 BUN 62 H Creatinine 2.9 H Estim Creat Clear Calc 28.4 L eGFR 24 L BUN/Creatinine Ratio 21 H Glucose 119 H Calculated Osmolality 294 Calcium 8.5 Magnesium 2.2 Ur Random Creatinine 57 Ur Random Sodium 81.2 Ur Random Potassium 26 Ur Random Chloride 82.4 Ur Random Urea Nitrogn 381.0 Urine Total Volume 1780 U Total Protein mg/dL 141 H Ur Total Protein 24 Hr 2510 H ABG Interpretation ABG results: 01/25/24 01/25/24 01/26/24 19:50 20:13 03:33 ABG pH Cancelled 7.36 7.36 ABG pCO2 Cancelled 39 39 ABG pO2 Cancelled 53 L* 77 L D ABG HCO3 Cancelled 22 22 ABG O2 Saturation Cancelled 87 L 96 ABG Base Excess Cancelled -3 -3 Quality Measures Quality Measures VTE prophylaxis (heparin subcutaneously) Assessment & Plan Assessment Current Active Medications: Generic Name Dose Route Start Last Admin Trade Name Freq PRN Reason Stop Dose Admin Acetaminophen 650 mg 01/24/24 19:40 Acetaminophen 325 Mg Tablet PO 02/23/24 19:39 Q6H PRN Fever >101.5 Atorvastatin Calcium 40 mg 01/27/24 21:00 01/31/24 21:46 Atorvastatin Calcium 20 Mg Tablet PO 02/26/24 20:59 40 mg HS ANAMARIA Administration Bumetanide 2 mg 01/26/24 09:00 02/01/24 08:38 Bumetanide Inj 0.25 Mg/Ml Vial 4 Ml IVP 02/25/24 08:59 2 mg BID ANAMARIA Administration Carvedilol 6.25 mg 01/31/24 17:30 02/01/24 08:39 Carvedilol 3.125 Mg Tablet PO 03/01/24 17:29 6.25 mg BIDWM ANAMARIA Administration Dextrose 25 ml 01/24/24 19:42 Dextrose 50%-Water Inj 50 Ml Syringe IV 02/23/24 19:41 Q15MIN PRN BG 50-70 responsive npo pt Dextrose 50 ml 01/24/24 19:42 Dextrose 50%-Water Inj 50 Ml Syringe IV 02/23/24 19:41 Q15MIN PRN BG <50 OR BG <70 & pt unresponsive Glucagon 1 mg 01/24/24 19:42 Glucagon Inj 1 Mg Vial IM Q15MIN PRN BG <70, and no IV access Heparin Sodium (Porcine) 5,000 unit 01/24/24 22:00 02/01/24 05:48 Heparin Sod Inj 5000 Unit/Ml Vial SC 02/07/24 21:59 5,000 unit Q8HR ANAMARIA Administration Hydralazine HCl 100 mg 01/28/24 08:15 02/01/24 08:39 Hydralazine Hcl 25 Mg Tablet PO 02/27/24 08:14 100 mg Q8H ANAMARIA Administration Protocol Levofloxacin/Dextrose 750 mg in 150 mls @ 100 mls/hr 01/29/24 10:45 01/31/24 09:56 Levaquin Ivpb IV 02/05/24 10:44 100 mls/hr Q48H ANAMARIA Administration Insulin Glargine 10 unit 01/25/24 09:00 02/01/24 08:40 Insulin Glargine (Lantus) 5 Unit/0.05 Ml (Per 5 Units) SC 02/24/24 08:59 10 unit QDAY ANAMARIA Administration Insulin Human Regular 0 unit 01/24/24 21:00 02/01/24 08:17 Insulin Hum Regular 1 Unit/0.01 Ml (Per Unit) SC 02/23/24 20:59 Not Given ACHS [facility] Protocol Ipratropium [place] 0.5 mg 01/24/24 21:01 01/28/24 16:33 Ipratropium Rt 0.5 Mg/ 2.5 Ml Nebu INH 02/23/24 21:00 0.5 mg Q6HRRT PRN Administration SHORTNESS OF BREATH OR WHEEZE Protocol Levalbuterol HCl 1.25 mg 01/25/24 01:00 02/01/24 06:53 Levalbuterol Rt 1.25 Mg/0.5 Ml Nebu INH 02/24/24 00:59 1.25 mg Q6HRRT ANAMARIA Administration Ondansetron HCl 4 mg 01/25/24 05:02 01/25/24 05:11 Ondansetron Inj 2 Mg/Ml Inj 2 Ml IV 02/24/24 05:01 4 mg Q6HR PRN Administration NAUSEA OR VOMITING Protocol Sodium Chloride 3 ml 01/24/24 21:01 02/01/24 00:58 Sodium Chloride Rt Silv[place] 0.9% 3 Ml Nebu INH 02/23/24 21:00 3 ml Q6HRRT PRN Administration SOLN Protocol Plan 63-year-old male with past medical history of HFpEF (EF 50 to 55%) DM2, hyperlipidemia, hypertension, prior osteomyelitis of right first toe s/p amputation was admitted to the hospital on 01/24/2024 for acute hypoxic respiratory failure secondary to acute decompensated heart failure exacerbation and sepsis likely secondary to pneumonia versus osteomyelitis. #Acute decompensated heart failure exacerbation #HFpEF (EF 50 to 55% 01/2024) #Acute hypoxic respiratory failure #Bilateral pleural effusions ?Patient came in with shortness of breath, bilateral lower extremity edema, and orthopnea ?Patient's last echo on 09/2023 showed an ejection fraction of 60 to 65% ?Chest x-ray 01/24/24 showed moderate heart failure ?BNP 671 -Echo showed EF 50-55% -Pleural fluid was transudative using lights criteria, most likely due to HF exacerbation. Plan: ?Continue IV Bumex 2mg twice daily -Continue Carvedilol to 6.25mg BID ?Strict CHAR's ?Fluid restrictions 1500 mL daily -Daily weights ?Keep potassium above 4 and magnesium above 2 -Low sodium diet -Cardiology consulted (Dr. Soriano), appreciate recommendations ?Will continue to monitor #Sepsis secondary to osteomyelitis #Pneumonia #Osteomyelitis ?Initially patient met SIRS criteria 2 out of 4 with leukocytosis and tachypnea ?Chest x-ray showed bilateral pneumonia and pleural effusions -CXR 01/27/2024 showed extensive ANGEL PNA ?Right foot x-ray showed osteomyelitis in the amputated first metatarsal and second metatarsophalangeal joint ?WBC 10 ?Discontinue azithromycin and Rocephin -DC's vancomycin [01/25/2024?01/27/2024], Cefepime [01/24-01/28], DC'd levofloxacin [01/29/2024?02/01/2024] Plan: ?Started Doxycycline [02/01/2024-] ?PICC line insertion by IR ordered -IV Rocephin and Doxycycline upon DC until 02/27/2024 ?Breathing treatments as needed -Wound care ?Referral to physical therapy ?General Surgery consulted (Dr. Serna), recommended no surgery at the moment and to continue antibiotics #JOSE MARIA on CKD ?Patient has some underlying CKD since last year with GFR in the high 30s to 40s -Baseline Cr 1.9 and was 2.8 on admission -Likely prerenal given heart failure and volume overload status ?BUN 62 and creatinine 2.9 today Plan: ?Avoid nephrotoxic agents ?Renally dose medications -Continue Diuresis -Nephrology consulted, appreciated recommendations ? Will continue to monitor #Scabies ? Patient stated that multiple residents in his rehab center were diagnosed with scabies. ?Patient has multiple excoriations on his entire back and bilateral upper extremities. Plan: ? Permethrin x 1 done on 01/26/2024 ? Contact precautions ?will continue to monitor #Normocytic normochromic anemia ?Patient has a Hx of normocytic anemia with Hgb 10.4 prior to admission - Hgb 7.3 Plan: ?Will transfuse if hemoglobin less than 7 ?Will continue to monitor #Hx of DM2 ?A1c 6.2 on 01/25/2024 Plan: ?ISS ? Accu-Cheks and hypoglycemia protocol ? Will continue to monitor #Hx of hyperlipidemia ?Triglycerides 227, cholesterol 148, LDL 86, HDL 17 on 10/05/2023 Plan: ?Continue atorvastatin 40 mg #Hx of HTN ?Continue amlodipine 10 mg daily -Continue hydralazine 100mg every 8 hours Disposition: Patient seen in telemetry continuing Antibiotic for Sepsis, pending PICC line insertion by IR. Diet: NPO GI prophylaxis: not indicated DVT prophylaxis: Heparin sc Code: Full Case disclosed with Attending Dr. Huynh and My senior Dr. Barrera PGY2 Henri Perkins PGY1 Attending Provider Attestation/Addendum 43-year-old male with multiple comorbidities including type 2 diabetes mellitus, hypertension, hyperlipidemia and heart failure with preserved EF who was admitted on 01/24/2024 with shortness of breath found to have acute sided heart failure exacerbation with bilateral pleural effusion IV diuretic therapy. In addition, patient also found to have osteomyelitis patient has a PICC line in place and IV antibiotic therapy until February 27, 2024. I reviewed above note and agree with findings and plans. I have also personally examined the patient with medicine team and went over assessment and plan with medical team including art gallery internship and resident physician.
--- NOTE | 2024-02-01 11:33 | ESPR_ITS ---
Subjective Subjective Interval history: 63 y/o with pleural effusion. dm, and ckd and apparent osteo of rt foot by mri. some ckd too Exam Vital Signs Temp Pulse Resp BP Pulse Ox O2 Del Method O2 Flow Rate 96.3 F L 74 16 152/74 H 97 Nasal Cannula 1 02/01/24 08:00 02/01/24 08:39 02/01/24 08:00 02/01/24 08:39 02/01/24 08:00 02/01/24 08:00 02/01/24 08:00 FiO2 0 02/01/24 04:00 Narrative Exam mild edema. will stop vanco and go with rocephin and doxy and f/u with outpt primary on release. can not explain O2 need, coag neg an unlikely player in pleural fluid, so unless you find endocarditis. (note that transthoracic echo neg as ere admitting bc). the gpc may have been pneumococcus rather than the secondary spanish teacher that grew as pt was pre treated for a few days prior to culture on 01/25 Objective - Internal Medicine Labs 02/01/24 05:02 02/01/24 05:02 Labs: Laboratory Results - last 24 hr 01/26/24 01/30/24 02/01/24 10:45 10:45 05:02 WBC 10.0 RBC 2.93 L Hgb 7.3 L Hct 24.2 L MCV 83 MCH 24.9 L MCHC 30.2 L RDW Std Deviation 44.1 H Plt Count 378 Neut % (Auto) 63 Lymph % (Auto) 19 [place] % (Auto) 10 Eos % (Auto) 9 Baso % (Auto) 0 Neut # (Auto) 6.2 Lymph # (Auto) 1.9 [place] # (Auto) 1.0 H Eos # (Auto) 0.9 H Baso # (Auto) 0.0 Immature Gran # (Auto) 0.05 H Absolute Nucleated RBC 0.00 Immature Gran % 1 H Nucleated RBC % 0 Sodium 138 Potassium 4.6 Chloride 106 Carbon Dioxide 24.6 Anion Gap 7 BUN 62 H Creatinine 2.9 H Estim Creat Clear Calc 28.4 L eGFR 24 L BUN/Creatinine Ratio 21 H Glucose 119 H Calculated Osmolality 294 Calcium 8.5 Magnesium 2.2 Ur Random Creatinine 57 Ur Random Sodium 81.2 Ur Random Potassium 26 Ur Random Chloride 82.4 Ur Random Urea Nitrogn 381.0 Urine Total Volume 1780 U Total Protein mg/dL 141 H Ur Total Protein 24 Hr 2510 H ABG Interpretation ABG results: 01/25/24 01/25/24 01/26/24 19:50 20:13 03:33 ABG pH Cancelled 7.36 7.36 ABG pCO2 Cancelled 39 39 ABG pO2 Cancelled 53 L* 77 L D ABG HCO3 Cancelled 22 22 ABG O2 Saturation Cancelled 87 L 96 ABG Base Excess Cancelled -3 -3 Assessment & Plan A&P Narrative pleural effusion osteo rt foot dm II a1c 6.2 noted. may have improved more with ckd (insulin lasts longer in ckd) than with improved attention , but it is improved from >11 before ckd 3-4 htn favor about 5 more weeks of rocephin and doxy ( thru 02/26 ). for foot. if not working. you can try to get a surgical. eval. I can not see him in f/u. see outpt primary. please arrange for weekly cbc, renal panel, esr on iv rx and line removal at end of rx. Time Spent With Patient Time: Total time spent is greater than 50% in coordination of care (as documented) at patient's floor/unit and/or counseling patient:
[2024-02-01 12:33] LABS: C-Reactive Protein 3.6 mg/dL (0.0-0.9)
[2024-02-01 12:40] LABS: Sed Rate (ESR) 74 mm/hr (0-20)
--- NOTE | 2024-02-01 15:13 | PC.SS ---
SS follow up note; Patient is getting Pic [facility] at the time. VEL contacted Natasha from [facility] and informed her patient will be discharging to [facility]. Natasha informed SS she would start authorization. VEL faxed updated clinicals to Natasha from [facility].
[2024-02-01] MEDS: SODIUM CHLORIDE 0.9% 250 ML 250 ML 20 ML IV (15:22)
--- NOTE | 2024-02-01 15:23 | ESCONSULT_ITS ---
RE: VALERIE BRUNSON : 1960 DATE OF CONSULTATION: 02/01/2024 REFERRING PHYSICIAN: Dr. Cruz, hospitalist. REASON FOR CONSULTATION: Pleural effusion, osteomyelitis of the right foot, diabetes with hypertension and peripheral vascular disease, chronic kidney disease. HISTORY OF PRESENT ILLNESS: The patient is an unfortunate 63-year-old who states he was being ill for a little while. It has been about a month. He notes no prior history of TB and a Valley fever test was done earlier in his course, it was negative. He developed pleural effusion that was drained. The pleural fluid analysis is relatively benign. There is more like a transudate. There is some questionable infiltrate. He was given antibiotics. HIV test, hepatitis C tests were negative. There are dating back to September. His Valley fever testing was negative this admission as mentioned. He does appear to have bilateral pneumonia. He also has some CKD with a creatinine ranging from about 2.6-2.9, currently on vancomycin and Levaquin. It is uncertain why he is not on standard pneumonia treatment, but he is not. PAST MEDICAL HISTORY: Include diabetes, hypertension, chronic kidney disease. PAST SURGICAL HISTORY: Includes some foot surgery in the past. It is unclear if it is done here or elsewhere. ALLERGIES: NONE NOTED. IMMUNIZATIONS: Last tetanus is at a rehab center, not too long ago. He has a flu shot every year and has had 3 COVID vaccines and has pneumococcal vaccine, but it is not certain when. FAMILY HISTORY: Positive for diabetes. SOCIAL HISTORY: Lives with relatives. He is on lifelong nonsmoker. 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 PHYSICAL EXAMINATION: He is 63 years old. He offers reasonable history and speaks mostly Yemeni. Yemeni speaking resident was used for communication. The patient denies any other health problems other than as listed. He is a very pleasant gentleman. Examination shows him to have no murmurs, gallops or rubs. He is on some supplemental oxygen, the reasons that are unclear. It looks to be similar to the prior oxygen treatment. Doxycycline is a good atypical pna agent as well as a good agent for variety of Staphylococcus aureus and other potential pulmonary pathogens. Imaging raises concern for persistent pleural effusion. ASSESSMENT: He also appears to have osteomyelitis of the right foot where he had prior amputation in one of the toes elsewhere. He also has prior amputation may have been done here in September. His A1c has improved markedly from prior values. I saw him last in September. At that time, his A1c was 11.9, has improved to 6.2, but that may be more due to his chronic kidney disease more than anything else. He has elevated PTH as well. I will defer to others regarding interpretation. The studies of oral antibiotics for osteomyelitis all had good microbiology and clinical improvement before they switch to oral so I am not sure we can get that done in a timely manner, so just give IV treatment for the remainder of 6 weeks. He has already had treatment for a little over a week, treatment should go through approximately 02/27/2024 with a weekly CBC, renal panel, and sedimentation rate to monitor his treatment, also gets sedimentation rate, and other tests tomorrow or later today as a precaution. DT: 12:03:28 TT: 13:01:00 Ref: [id number] - TID: [id number] MTDD
[2024-02-01] MEDS: INSULIN HUM REGULAR 1 UNIT/0.01 ML (PER UNIT) SC (21:52)
[2024-02-01] MEDS: DOXYCYCLINE 100 MG TABLET PO (21:53)
[2024-02-01] MEDS: ATORVASTATIN CALCIUM 20 MG TABLET 40 MG PO (21:55)
[2024-02-02] VITALS (34 sets, daily range): BP systolic 130–165; BP diastolic 62–85; PULSE 69–88; RESP 11–21; TEMP 36.6–36.7; O2SAT 93–99
[2024-02-02] MEDS: hydrALAZINE HCL 25 MG TABLET 100 MG PO ×3 (00:03→16:39)
[2024-02-02] MEDS: HEPARIN SOD INJ 5000 UNIT/ML VIAL SC ×2 (05:43→21:29)
[2024-02-02 06:23] LABS: Quantiferon-TB* See Sep Rpt
[2024-02-02 06:35] LABS: Basophils % (Auto) 0 % (0-2.5); Eosinophils # (Auto) 0.8 Thou/mm3 (0.0-0.5); Eosinophils % (Auto) 8 % (0-10); Hematocrit 23.7 % (41.0-53.0); Immature Granulocytes % (Auto) 1 % (0-0); Immature Granulocytes Auto 0.08 Thou/mm3 (0.00-0.00); Lymphocytes # (Auto) 1.9 Thou/mm3 (1.0-4.8); Lymphocytes % (Auto) 21 % (10-50); Mean Corpuscular HGB Conc 30.8 g/dl (31.0-37.0); Mean Corpuscular Hemoglobin 25.4 pg (25.0-35.0); Mean Corpuscular Volume 83 fL (80-100); Monocytes # (Auto) 0.9 Thou/mm3 (0.0-0.8); Monocytes % (Auto) 10 % (0-12); Neutrophils # (Auto) 5.4 Thou/mm3 (1.8-7.7); Neutrophils % (Auto) 59 % (37-80); Nucleated Red Blood Cell % 0 /100 WBC (0); Platelet Count 342 Thou/mm3 (140-440); RDW Standard Deviation 44.1 fL (35.1-43.9); Red Blood Count 2.87 Miln/mm3 (4.50-5.90); White Blood Count 9.1 Thou/mm3 (3.8-10.6)
[2024-02-02 06:45] LABS: Hemoglobin 7.3 g/dL (13.5-16.0)
[2024-02-02 07:06] LABS: Anion Gap 8 (7-16); BUN/Creatinine Ratio 20 Ratio (12-20); Blood Urea Nitrogen 59 mg/dL (9-23); Calcium 8.7 mg/dL (8.3-10.6); Carbon Dioxide 25.3 mMol/L (20.0-31.0); Chloride 105 mMol/L (98-107); Glucose 113 mg/dL (74-106); Magnesium 2.1 mg/dL (1.6-2.6); Osmolality,Calculated 293 (275-295); Potassium 4.4 mMol/L (3.4-5.1); Sodium 138 mMol/L (136-145); eGFR 23 See Note
[2024-02-02] MEDS: carVEDILOL 3.125 MG TABLET 6.25 MG PO ×2 (08:40→17:20)
[2024-02-02] MEDS: cefTRIAXone 2 GM in SODIUM CHLORIDE 0.9% (P) 50 ML IV (08:41)
[2024-02-02] MEDS: BUMETANIDE INJ 0.25 MG/ML VIAL 4 ML 2 MG IVP ×2 (08:41→21:28)
[2024-02-02] MEDS: DOXYCYCLINE 100 MG TABLET PO ×2 (08:41→21:28)
[2024-02-02] MEDS: INSULIN GLARGINE (Lantus) 5 UNIT/0.05 ML (PER 5 UNITS) 10 UNIT SC (08:43)
--- NOTE | 2024-02-02 08:48 | PD.RESPRO ---
Documentation for date of: 02/02/24 Subjective Subjective Interval history: Patient is Japanese-speaking only and interaction facilitated by healthcare chief passenger ship steward/stewardess Patient was seen and examined at bedside this AM. No acute exents overnight. Patient tolerating diet, adequate urine output and mentation is at baseline. Patient endorses improvement of his SOB and can now ambulate with a walker without SOB while on O2 Bicarb uptrended to 25.3 from 24.6 , Cr increased to 3 from 2.9 and BUN decreased to 59 from 62 Patient still has significant LE and Sacral edema but much improved Significant edema due to both acute decompensated heart failure exacerbation and Severe Proteinuria 2.5 g /24hours Patient currently on IV diuresis with Bumex 2 Mg IV twice daily. Fluid balance of negative 2820cc in past 24 hours. Continue diuresis with goal of 1?2 L per day Potassium 4.4 and magnesium 2.1. Continue to maintain potassium greater than 4 and magnesium greater than 2 at all times to prevent any arrhythmias. Patient still continues to be hypertensive, but improved SBPs between 120's and 140's overnight Patient currently on Coreg 6.25 Mg p.o. twice daily as part of GDMT as his sepsis is now resolving Continue hydralazine 100 mg p.o. 3 times daily for better blood pressure control as he is also CKD stage IIIb An additional dose of Bumex 2mg IV x1 was recommended on 01/28, however it was not given Metolazone 5mg po x 1 was given for extra diuresis on 01/30 Amlodipine was held as per Nephrology recommendations Ideally patient should be on ARB for better blood pressure control and as part of GDMT, however due to his JOSE MARIA on CKD stage IV on hold for now as per Dr. Main, Nephrology recommendations Exam Vital Signs Temp Pulse Resp BP Pulse Ox O2 Del Method O2 Flow Rate 97.9 F 88 21 H 149/72 H 96 Nasal Cannula 3 02/02/24 04:00 02/02/24 08:41 02/02/24 07:52 02/02/24 08:41 02/02/24 07:52 02/02/24 04:00 02/02/24 07:52 FiO2 0 02/01/24 04:00 Narrative Exam Constitutional Alert, oriented x 3 and Comfortable. On 2 L O2 via NC. Can speak full sentences HEENT Vision grossly intact. Patent nares. Trachea midline Respiratory Chest normal on inspection and decreased AE at bases b/l. Bandage on left and right back from thoracentesis noted Cardiovascular S1 and S2 audible, RRR. No murmurs carotid bruit. No gross JVD. Abdominal Soft,obese and non tender to palpation in all quadrants. BS + Genitourinary No bladder tenderness, no flank pain. Normal to palpation. No scrotal edema Musculoskeletal Extremities tone within normal limits. 2+ LE edema up to knees B/L. sacral edema, much improved. Bandage noted on R foot Neurological CN II - XII grossly intact. Extremity motor and sensation grossly intact. Skin Warm, dry and intact. No apparent lesions. Psychiatric Patient has good affect, is cooperative Objective Labs 02/02/24 05:54 02/02/24 05:54 Labs: Laboratory Results - last 24 hr 02/01/24 02/02/24 05:02 05:54 WBC 9.1 RBC 2.87 L Hgb 7.3 L Hct 23.7 L MCV 83 MCH 25.4 MCHC 30.8 L RDW Std Deviation 44.1 H Plt Count 342 D Neut % (Auto) 59 Lymph % (Auto) 21 [place] % (Auto) 10 Eos % (Auto) 8 Baso % (Auto) 0 Neut # (Auto) 5.4 Lymph # (Auto) 1.9 [place] # (Auto) 0.9 H Eos # (Auto) 0.8 H Baso # (Auto) 0.0 Immature Gran # (Auto) 0.08 H Absolute Nucleated RBC 0.00 Immature Gran % 1 H Nucleated RBC % 0 ESR 74 H Sodium 138 Potassium 4.4 Chloride 105 Carbon Dioxide 25.3 Anion Gap 8 BUN 59 H Creatinine 3.0 H Estim Creat Clear Calc 27.0 L eGFR 23 L BUN/Creatinine Ratio 20 Glucose 113 H Calculated Osmolality 293 Calcium 8.7 Magnesium 2.1 C-Reactive Prot, Quant 3.6 H ABG Interpretation ABG results: 01/25/24 01/25/24 01/26/24 19:50 20:13 03:33 ABG pH Cancelled 7.36 7.36 ABG pCO2 Cancelled 39 39 ABG pO2 Cancelled 53 L* 77 L D ABG HCO3 Cancelled 22 22 ABG O2 Saturation Cancelled 87 L 96 ABG Base Excess Cancelled -3 -3 Quality Measures Quality Measures VTE prophylaxis (heparin subcutaneously) Assessment & Plan Assessment Current Active Medications: Generic Name Dose Route Start Last Admin Trade Name Yoan PRN Reason Stop Dose Admin Acetaminophen 650 mg 01/24/24 19:40 Acetaminophen 325 Mg Tablet PO 02/23/24 19:39 Q6H PRN Fever >101.5 Atorvastatin Calcium 40 mg 01/27/24 21:00 02/01/24 21:55 Atorvastatin Calcium 20 Mg Tablet PO 02/26/24 20:59 40 mg HS ANAMARIA Administration Bumetanide 2 mg 01/26/24 09:00 02/02/24 08:41 Bumetanide Inj 0.25 Mg/Ml Vial 4 Ml IVP 02/25/24 08:59 2 mg BID ANAMARIA Administration Carvedilol 6.25 mg 01/31/24 17:30 02/02/24 08:40 Carvedilol 3.125 Mg Tablet PO 03/01/24 17:29 6.25 mg BIDWM ANAMARIA Administration Dextrose 25 ml 01/24/24 19:42 Dextrose 50%-Water Inj 50 Ml Syringe IV 02/23/24 19:41 Q15MIN PRN BG 50-70 responsive npo pt Dextrose 50 ml 01/24/24 19:42 Dextrose 50%-Water Inj 50 Ml Syringe IV 02/23/24 19:41 Q15MIN PRN BG <50 OR BG <70 & pt unresponsive Doxycycline Hyclate 100 mg 02/01/24 21:00 02/02/24 08:41 Doxycycline 100 Mg Tablet PO 02/08/24 20:59 100 mg BID ANAMARIA Administration Glucagon 1 mg 01/24/24 19:42 Glucagon Inj 1 Mg Vial IM Q15MIN PRN BG <70, and no IV access Heparin Sodium (Porcine) 5,000 unit 01/24/24 22:00 02/02/24 05:43 Heparin Sod Inj 5000 Unit/Ml Vial SC 02/07/24 21:59 5,000 unit Q8HR ANAMARIA Administration Hydralazine HCl 100 mg 01/28/24 08:15 02/02/24 08:40 Hydralazine Hcl 25 Mg Tablet PO 02/27/24 08:14 100 mg Q8H ANAMARIA Administration Protocol Ceftriaxone Sodium 2 gm/ 50 mls @ 100 mls/hr 02/02/24 09:00 02/02/24 08:41 Sodium Chloride IV 02/09/24 08:59 100 mls/hr QDAY ANAMARIA Administration Insulin Glargine 10 unit 01/25/24 09:00 02/02/24 08:43 Insulin Glargine (Lantus) 5 Unit/0.05 Ml (Per 5 Units) SC 02/24/24 08:59 10 unit QDAY ANAMARIA Administration Insulin Human Regular 0 unit 01/24/24 21:00 02/02/24 07:50 Insulin Hum Regular 1 Unit/0.01 Ml (Per Unit) SC 02/23/24 20:59 Not Given ACHS ANAMARIA Protocol Ipratropium [place] 0.5 mg 01/24/24 21:01 01/28/24 16:33 Ipratropium Rt 0.5 Mg/ 2.5 Ml Nebu INH 02/23/24 21:00 0.5 mg Q6HRRT PRN Administration SHORTNESS OF BREATH OR WHEEZE Protocol Levalbuterol HCl 1.25 mg 01/25/24 01:00 02/02/24 07:54 Levalbuterol Rt 1.25 Mg/0.5 Ml Nebu INH 02/24/24 00:59 Not Given Q6HRRT ANAMARIA Ondansetron HCl 4 mg 01/25/24 05:02 01/25/24 05:11 Ondansetron Inj 2 Mg/Ml Inj 2 Ml IV 02/24/24 05:01 4 mg Q6HR PRN Administration NAUSEA OR VOMITING Protocol Plan Patient is a 63-year-old male with a past medical history significant for essential hypertension for more than 20 years, hyperlipidemia does not appear to be statin at home, insulin-dependent diabetes mellitus type 2 [6.2] more than 30 years and CKD stage 3 B. Does not have a primary care doctor. Patient presented to the ED on 01/23 with a chief complaint of SOB and chest discomfort for 1 week. Cardiology was consulted for acute decompensated heart failure. 1. Acute respiratory failure with hypoxia Secondary to 2. Anasarca - Acute decompensated heart failure with preserved ejection fraction [50-55%] 3. Nephrotic syndrome ruled out 4. B/L pleural effusions On admission patient was SOB at rest associated with chest discomfort for the past week which worsened the day of admission. BNP was elevated at 671 and troponin were negative on admission. Patient's home diuretic hydrochlorothiazide 50 Mg p.o. daily and furosemide 20 Mg p.o. daily. Chest x-ray showed moderate vascular congestion with bilateral pleural effusion and possible superimposed lower lobe consolidation bilateral. EKG showed sinus rhythm rate 95 NYHA stage C class IV Transthoracic echocardiogram completed on 01/26/2024 findings include: Normal LV size and function. Estimated EF 50-55% Normal RV size and function. Trace MR, TR. Left pleural effusion present. Previous echocardiogram from 10/06/2023: Normal LV size and function. Stage I diastolic dysfunction. Estimated EF 60-65%. Initially patient was diuresed with Lasix 40 Mg IV daily but was minimally responsive and was eventually switched to Bumex 2 Mg IV twice daily with better response. Patient also had therapeutic/diagnostic Left thoracentesis done 01/25 for bilateral large pleural effusion. Approximately 600 cc of straw-colored fluid was drained and pleural fluid analysis was significant for transudative picture confirming etiology of CHF. Patient currently on IV diuresis with Bumex 2 Mg IV twice daily. On 01/28 an additional dose of Bumex 2mg IV x 1 was recommended, but not given. Fluid balance of negative 2820cc in past 24 hours. Continue diuresis with goal of 1?2 L per day Patient still continues to be hypertensive, but improved SBPs between 130's and 140's overnight On 01/27 patient had therapeutic paracentesis to the right lung and 1950 cc of pleural fluid was removed. Fluid analysis confirmed a transudative effusion. Metolazone 5mg po x 1 was given for extra diuresis on 01/30 Ideally patient should be on ARB for better blood pressure control and as part of GDMT, however due to his JOSE MARIA on CKD stage IV on hold as per Dr. aMin, Nephrology recommendations Pleural fluid culture from 01/25 grew Staphylococcus hemolyticus. Plan: ? Strict input output charting ? 2 g sodium restricted diet ? 1500 cc a day fluid restriction ? Aim for diuresis of 1?2 L per day - Continue Coreg to 6.25 mg po BID for better blood pressure control ? Continue diuresis with Bumex 2 Mg IV twice daily - Recommend goal-directed medical therapy for heart failure. Patient may not be able to start Entresto due to his CKD but can start spironolactone at a later time. Patient also appears to be on SGLT2 as part of his home medication which can also be restarted on discharge. ? Maintain potassium greater than 4 and Mg greater than 2 at all times to prevent any arrhythmias. 5. Proteinuria 6. Diabetic Nephropathy Patient still has significant LE and Sacral edema, Nephrology was consulted on 01/28 due to worsening JOSE MARIA on CKD Urinalysis was significant for nephrotic range proteinuria and Renal USS significant for B/L renal cortical scarring without hydronephrosis. Nephrotic syndrome secondary to long standing uncontrolled DM was suspected by Dr. Main, Billiard Table Assembler who agrees with current management of Bumex 2m IV BID Estimated urine protein 2.5g / 24 hours, out of Nephrotic range. 24 hour urine protein also 2.5 g /24 hours Significant edema due to both acute decompensated heart failure exacerbation and Proteinuria 7. Essential hypertension Unsure of patient's home medication as he cannot recall the names and medication reconciliation not completed. It appears he might have been on amlodipine 10 Mg p.o. daily, furosemide 20 Mg p.o. daily and hydrochlorothiazide 50 Mg p.o. daily and Coreg 6.25 Mg p.o. twice daily. On admission patient's BP 175/85 Patient still continues to be hypertensive, but better SBP's between 130s and 140s overnight Plan: ? Amlodipine held as per Nephrology recommendations - Recommend to continue hydralazine 100 mg p.o. 3 times daily for better blood pressure control as he is also JOSE MARIA on CKD stage IV - Continue Coreg 6.25mg po BID for better blood pressure control - Ideally patient should be on ARB for better blood pressure control and as part of GDMT, however due to his JOSE MARIA on CKD stage IV hold for as per Dr. Main, Nephrology recommendations - Recommend excellent control of blood pressure with systolic less than 140 mmHg. 8. Hyperlipidemia Upon chart review patient's last lipid panel from 10/05/2023 showed triglycerides 227, cholesterol 148, LDL 86. Patient does not appear to have been on a statin at home. Plan: ? Recommend to continue high intensity statin, atorvastatin 40 Mg p.o. at bedtime 9. Sepsis secondary to community-acquired pneumonia. On admission patient met SIRS 2/4. RR 24 and WBC 15.4. Chest x-ray showed bilateral lower lobe consolidation as source of infection. Procalcitonin was within normal limits on admission as well as lactic acid level. Patient did not have any fever during visit. Sputum Gram stain done on 01/25 showed 2+ GPC and rare WBCs, sputum culture still pending. Patient currently hypotensive with BP 151/86 and similar trend over the course of admission, no concern for hypotension at this time. Patient was treated with 2 days of azithromycin and Rocephin IV as well as vancomycin IV for 2 days. Patient is currently treated with cefepime. Blood cultures are currently pending with preliminary report no bacterial growth after 48 hours. Plan: ? Continue management as per primary team 10. JOSE MARIA on CKD stage IIIb Patient's baseline CR between 1.9?2. On admission patient CR 2.8. Etiology likely prerenal in the setting of CHF exacerbation. Continue management as per primary team and Nephrology 11. Insulin-dependent diabetes mellitus type 2 [6.2] Patient had diabetes mellitus for the past 30 years and currently on insulin, empagliflozin/metformin and Ozempic at home. Most recent HbA1c 6.2% from this admission. Continue management as per primary team 12. Right foot osteomyelitis s/p transmetatarsal amputation [September 2023] Patient has history of poorly controlled diabetes in the past leading to right foot ulcer and eventual osteomyelitis leading to amputation earlier this year. On this admission foot x-ray showed cortical bone destruction at the end of the first metatarsal as well as distal second metatarsal and proximal phalanx second digit. Negative for gas gangrene or acute osteomyelitis. Patient was evaluated by general surgeon, Dr Serna who assessed patient to have a superficial ulcer and not acute osteomyelitis. Foot ulcer unlikely source of patient's sepsis. ID was consulted who recommended treatment for 6 weeks with IV antibiotics Rocephin and Doxycycline to complete on 02/17/2024 13. Normocytic anemia On admission patient's Hb 8.9, from chart review baseline appears to be between 10?11. Currently Hb 7.3 Reccomend to transfuse with PRBC if Hb < 7 DDx: Iron deficiency anemia, anemia of chronic disease, thalassemia, sideroblastic anemia, lead poisoning. Iron panel from this admission showed iron low 18, TIBC low 243 and ferritin within normal limits 132 Etiology possibly multifactorial iron deficiency also anemia of chronic disease secondary to CKD. Recommend IV iron once sepsis resolves and Epogen on this admission for optimization of Hb. 14. Possible scabies Patient states that multiple residents at his rehab center were recently diagnosed with scabies. Patient also has multiple excoriations on his back and upper extremities. Patient was treated with permethrin x 1 on 01/26/2003/04/2024 and contact precautions were initiated. Contact precautions were removed Continue rest of management as per primary team. We are grateful to be able to participate in Mr. Sandoval' care. Thank you for the consult Plan of care discussed with attending Bilingual Sales Assistant, Dr Christie Dominguez MD PGY 1 Attending Provider Attestation/Addendum I have personally seen and examined the patient separately on the above date of service and discussed the plan of care with the resident. I reviewed the resident Dr. Dominguez consultation progress note and agree with the resident findings and plan in the note above and have also edited the documentation to reflect my findings and plan. Kyle Soriano M.D. Interventional Cardiology
--- NOTE | 2024-02-02 09:20 | PC.SS ---
Addendum entered by Thuy Garcia 02/02/24 11:38: SS called facilities that did not respond on [facility]. [facility] accepted patient, however informed SS that [facility] would need to cancel auth in order for them to start auth. SS contacted Natasha from [facility] and she informed SS that she would cancel auth as well as send PASSR to Ingris from [facility]. SS sent over all updated clinicals to [employer] and she informed SS she would submit auth today. Patient agreeable to discharge to [facility]. Original Note: SS met with patient at bedside to inform him that auth was pending to [facility]. Patient stated he does not want to discharge to [facility] after all due to having a bad experience with facility in the past. SS informed him that at the time there are no other accepting facilities, patient still adamant and stated he will discharge home, SS informed him that he will need IV ABX and that no agency will follow him. Patient reported he rather just go home without [facility]. SS explained to him the risk of not getting IV ABX.
--- NOTE | 2024-02-02 10:08 | PD.RESPRO ---
Documentation for date of: 02/02/24 Subjective Subjective Interval history: Mr. Sandoval is a 63 y/o M with PMHx significant for type 2 diabetes mellitus, hyperlipidemia, and hypertension who presents with shortness of breath and chest discomfort. Symptoms started approximately a week ago but acutely worsened overnight to the point where he would get short of breath after just a few steps, prompting him to come to the ED. Endorses orthopnea, PND, and bilateral lower extremity edema. Regarding his chest pain, describes it as substernal, pressure-like, worse with activity, and does not subside with rest. 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 Previously admitted and treated for osteomyelitis of right hallux on 09/2023 and underwent transmetatarsal amputation discharged with 7-day course of doxycycline that patient completed. Patient was hypertensive at 175/85 and hypoxic 86% on room air increased to 98% on 8 L oxy mask in the ED. Chest x-ray showed vascular congestion, bilateral pleural effusions. Patient received DuoNebs, ceftriaxone, and 40 mg Lasix in the ED. Patient admitted for acute hypoxic respiratory failure secondary to acute decompensated heart failure exacerbation and sepsis likely secondary to pneumonia versus osteomyelitis. Patient labs on admission showed BUN 56, creatinine 2.8, eGFR 25 compared to baseline BUN 40, baseline creatinine 1.9, baseline eGFR 39. Patient has been treated for presumptive prerenal JOSE MARIA due to volume overload with Bumex 2 mg IV twice daily, patient has not shown improvement in renal function. Urinalysis shows nephrotic range proteinuria 3+. Nephrology consulted for worsening JOSE MARIA on CKD despite diuretic treatment. Patient seen and examined on the floors. Patient resting in bed, appears mildly distressed and chronically ill. Patient has clear signs of fluid overload: Anasarca, crackles on lung auscultation. Held patient's amlodipine due to risk of increased edema. At time of exam labs showed BUN 61, creatinine 2.5, eGFR 28. Additional urine studies ordered. Renal ultrasound performed, showed moderate bilateral renal parenchymal scar formation, no hydronephrosis. 01/29: Patient seen and examined in telemetry. Patient appears mildly uncomfortable, ill appearing. Patient was anemic at 6.9 hemoglobin, repeat H&H showed hemoglobin 7.4. Patient remains severely fluid overloaded. BUN 61, creatinine 2.7, eGFR 26. Random urine creatinine?68, urine total protein 169, ratio 2.4. PTH 89. 24-hour urine collection pending. 1.9 L in, 1.5 L. 01/31/2024 patient currently seen in telemetry. Family at bedside.24-hour urine showed 2.5 g of protein per day. WBC 10, hemoglobin 7.1, platelets 351. Sodium 138, potassium 4.7, BUN 62, creatinine 2.7, GFR 26, phosphorus 4, ferritin 132, iron saturation 7, alk phos 142, albumin 3.1, B12 342, vitamin D23.5, PTH 89, urinalysis shows proteinuria. Patient had 2.1 L of urine. 01/31: Patient seen and examined in telemetry. Hg 7.3, sodium 138, potassium 4.6, bicarb 24.6, BUN 62, creatinine 2.1, eGFR 25. Patient remains fluid overloaded, improving. 3.6L urine output. 02/01: Patient seen and examined in ICU, only placed there for overflow, not ICU level management. Patient is resting comfortably. Sodium 138, potassium 4.4, potassium 25.3, BUN 54, creatinine 3.0, eGFR 23. 40.1 L urine output overnight. Exam Vital Signs Temp Pulse Resp BP Pulse Ox O2 Del Method O2 Flow Rate 97.9 F 88 21 H 149/72 H 96 Nasal Cannula 3 02/02/24 04:00 02/02/24 08:41 02/02/24 07:52 02/02/24 08:41 02/02/24 07:52 02/02/24 04:00 02/02/24 07:52 FiO2 0 02/01/24 04:00 Narrative Exam PE: Gen: Well-developed and well-nourished. HEENT: NCAT, PERRLA, EOMI, MMM, anicteric conjunctivae. CVS: normal S1 and S2. RRR. No M/R/G. Resp: Lungs clear to auscultation bilaterally. Abd: Mildly tender, distended, anasarca MSK: Good ROM in BUE & BLE. Bilateral lower extremity edema with skin changes secondary to chronic PAD. Sacral edema. Neuro: CN II-XII grossly intact. Strength 5/5 in BUE & BLE. Alert and oriented x3. Psych: appropriate mood and affect. Objective Labs 02/02/24 05:54 02/02/24 05:54 Labs: Laboratory Results - last 24 hr 02/01/24 02/02/24 05:02 05:54 WBC 9.1 RBC 2.87 L Hgb 7.3 L Hct 23.7 L MCV 83 MCH 25.4 MCHC 30.8 L RDW Std Deviation 44.1 H Plt Count 342 D Neut % (Auto) 59 Lymph % (Auto) 21 Bledsoe % (Auto) 10 Eos % (Auto) 8 Baso % (Auto) 0 Neut # (Auto) 5.4 Lymph # (Auto) 1.9 Bledsoe # (Auto) 0.9 H Eos # (Auto) 0.8 H Baso # (Auto) 0.0 Immature Gran # (Auto) 0.08 H Absolute Nucleated RBC 0.00 Immature Gran % 1 H Nucleated RBC % 0 ESR 74 H Sodium 138 Potassium 4.4 Chloride 105 Carbon Dioxide 25.3 Anion Gap 8 BUN 59 H Creatinine 3.0 H Estim Creat Clear Calc 27.0 L eGFR 23 L BUN/Creatinine Ratio 20 Glucose 113 H Calculated Osmolality 293 Calcium 8.7 Magnesium 2.1 C-Reactive Prot, Quant 3.6 H ABG Interpretation ABG results: 01/25/24 01/25/24 01/26/24 19:50 20:13 03:33 ABG pH Cancelled 7.36 7.36 ABG pCO2 Cancelled 39 39 ABG pO2 Cancelled 53 L* 77 L D ABG HCO3 Cancelled 22 22 ABG O2 Saturation Cancelled 87 L 96 ABG Base Excess Cancelled -3 -3 Quality Measures Quality Measures VTE prophylaxis (heparin subcutaneously) Assessment & Plan Assessment Current Active Medications: Generic Name Dose Route Start Last Admin Trade Name Freq PRN Reason Stop Dose Admin Acetaminophen 650 mg 01/24/24 19:40 Acetaminophen 325 Mg Tablet PO 02/23/24 19:39 Q6H PRN Fever >101.5 Atorvastatin Calcium 40 mg 01/27/24 21:00 02/01/24 21:55 Atorvastatin Calcium 20 Mg Tablet PO 02/26/24 20:59 40 mg HS ANAMARIA Administration Bumetanide 2 mg 01/26/24 09:00 02/02/24 08:41 Bumetanide Inj 0.25 Mg/Ml Vial 4 Ml IVP 02/25/24 08:59 2 mg BID ANAMARIA Administration Carvedilol 6.25 mg 01/31/24 17:30 02/02/24 08:40 Carvedilol 3.125 Mg Tablet PO 03/01/24 17:29 6.25 mg BIDWM ANAMARIA Administration Dextrose 25 ml 01/24/24 19:42 Dextrose 50%-Water Inj 50 Ml Syringe IV 02/23/24 19:41 Q15MIN PRN BG 50-70 responsive npo pt Dextrose 50 ml 01/24/24 19:42 Dextrose 50%-Water Inj 50 Ml Syringe IV 02/23/24 19:41 Q15MIN PRN BG <50 OR BG <70 & pt unresponsive Doxycycline Hyclate 100 mg 02/01/24 21:00 02/02/24 08:41 Doxycycline 100 Mg Tablet PO 02/08/24 20:59 100 mg BID ANAMARIA Administration Glucagon 1 mg 01/24/24 19:42 Glucagon Inj 1 Mg Vial IM Q15MIN PRN BG <70, and no IV access Heparin Sodium (Porcine) 5,000 unit 01/24/24 22:00 02/02/24 05:43 Heparin Sod Inj 5000 Unit/Ml Vial SC 02/07/24 21:59 5,000 unit Q8HR ANAMARIA Administration Hydralazine HCl 100 mg 01/28/24 08:15 02/02/24 08:40 Hydralazine Hcl 25 Mg Tablet PO 02/27/24 08:14 100 mg Q8H ANAMARIA Administration Protocol Ceftriaxone Sodium 2 gm/ 50 mls @ 100 mls/hr 02/02/24 09:00 02/02/24 08:41 Sodium Chloride IV 02/09/24 08:59 100 mls/hr QDAY ANAMARIA Administration Insulin Glargine 10 unit 01/25/24 09:00 02/02/24 08:43 Insulin Glargine (Lantus) 5 Unit/0.05 Ml (Per 5 Units) SC 02/24/24 08:59 10 unit QDAY ANAMARIA Administration Insulin Human Regular 0 unit 01/24/24 21:00 02/02/24 07:50 Insulin Hum Regular 1 Unit/0.01 Ml (Per Unit) SC 02/23/24 20:59 Not Given ACHS [facility] Protocol Ipratropium [place] 0.5 mg 01/24/24 21:01 01/28/24 16:33 Ipratropium Rt 0.5 Mg/ 2.5 Ml Nebu INH 02/23/24 21:00 0.5 mg Q6HRRT PRN Administration SHORTNESS OF BREATH OR WHEEZE Protocol Levalbuterol HCl 1.25 mg 01/25/24 01:00 02/02/24 07:54 Levalbuterol Rt 1.25 Mg/0.5 Ml Nebu INH 02/24/24 00:59 Not Given Q6HRRT [facility] Ondansetron HCl 4 mg 01/25/24 05:02 01/25/24 05:11 Ondansetron Inj 2 Mg/Ml Inj 2 Ml IV 02/24/24 05:01 4 mg Q6HR PRN Administration NAUSEA OR VOMITING Protocol Plan 63 y/o M with PMHx significant for HFpEF (EF 50 to 55%) DM2, hyperlipidemia, hypertension, prior osteomyelitis of right first toe s/p amputation was admitted to the hospital on 01/24/2024 for acute hypoxic respiratory failure secondary to acute decompensated heart failure exacerbation and sepsis likely secondary to pneumonia versus osteomyelitis. #JOSE MARIA on CKD Patient has some underlying CKD since last year with GFR in the high 30s to 40s. Baseline Cr 1.9 and BUN 40, BUN 56 and creatinine 2.8 on admission. Suspect prerenal given heart failure and volume overload status. Kidney function continued to worsen despite treatment with diuresis. Nephrology consulted due to worsening JOSE MARIA on CKD. Urinalysis showed 3+ protein, nephrotic range. Renal ultrasound showed moderate bilateral renal parenchymal scar formation, no hydronephrosis. Urine total protein 169, urine creatinine 68, ratio 2.4. PTH 89. Suspect worsening CKD due to diabetes, HgA1c 6.2% as of 01/25/24. Discussed need for potential dialysis with the patient. 24-hour urine collection showed 2.5g protein. Plan: -Avoid nephrotoxic agents -Renally dose medications -Hold amlodipine -Strict I's and O's -Continue Diuresis with bumex 2mg BID -Will continue to monitor #Acute decompensated heart failure exacerbation. #HFpEF (EF 50 to 55% 01/2024). #Acute hypoxic respiratory failure. #Bilateral pleural effusions. #Sepsis likely secondary to pneumonia versus osteomyelitis #Pneumonia #Osteomyelitis #Scabies #Normocytic normochromic anemia #Hx of DM2 #Hx of hyperlipidemia #Hx of HTN Management as per primary team Thank you for allow me to participate in the care of this patient. Plan of care discussed with attending Dr. Main. Les Godwin MD PGY-1 Attending Provider Attestation/Addendum patient seen and examined with resident physician Dr. Godwin. Note reviewed, agree with findings and recommendations with changes made. Clinically feeling better although still with significant edema. Continue with diuretics. Did explain to the patient that he will be left with CKD stage IV to maintain euvolemic state. He has cardiorenal syndrome. Patient understood. He is going to follow-up with me in 1 to 2 weeks in my office. No need for dialysis. He has good urine output.
--- NOTE | 2024-02-02 11:21 | ESPR_ITS ---
<Statement entered by Jc Barrera MD - 02/02/24 18:30> Senior Resident Attestation: I supervised/discussed management plan with inclusion internship physician Dr. Kim, and was involved in the care of this patient. I personally saw and examined the patient and discussed the assessment and plan with the entire medicine team, including my attending. I agree with the assessment and plan as documented. Patient's care was discussed with attending physician, Dr. Huynh. Jc Barrera MD PGY-2. Documentation for date of: 02/02/24 Subjective Subjective Interval history: Patient was seen at bedside this morning. No overnight events. Patient got his PICC line yesterday. Will continue diuresis and Abx for osteomyelitis. Pending SNF placement. No other complaints at this time. Exam Vital Signs Temp Pulse Resp BP Pulse Ox O2 Del Method O2 Flow Rate 97.9 F 88 21 H 149/72 H 96 Nasal Cannula 3 02/02/24 04:00 02/02/24 08:41 02/02/24 07:52 02/02/24 08:41 02/02/24 07:52 02/02/24 04:00 02/02/24 07:52 FiO2 0 02/01/24 04:00 Narrative Exam General: A/O x3, no acute distress Eyes: PERRL, EOMI. Anicteric, vision grossly intact. Ears: No ear pain, no ear discharge, Hearing grossly intact. Nose: No nasal discharge. Mouth/Throat: Dry mucous membranes, no redness, no lesions. Neck: Short neck, non-tender, no cervical lymphadenopathy. Lungs: Clear ANGEL, No accessory muscle use. Cardio: Normal S1/S2, regular rhythm, no murmurs, no JVD Abdomen: Soft, non-tender, no palpable masses, peristalsis present, no guarding or rebound. Extremities: Symmetrical, no significant deformities, 3+ peripheral edema, but better than yesterday , non-tender, peripheral pulses present, R first toe amputation covered with clean dressing today. Skin: No rashes, no lesions, warm to touch. Multiple excoriations in entire back and UE. Neuro: No focal neurological deficits. motor and sensory intact Psych: Cooperative, appropriate mood and effect. Objective Labs 02/04/24 10:51 02/04/24 10:51 Labs: Laboratory Results - last 24 hr 02/01/24 02/02/24 05:02 05:54 WBC 9.1 RBC 2.87 L Hgb 7.3 L Hct 23.7 L MCV 83 MCH 25.4 MCHC 30.8 L RDW Std Deviation 44.1 H Plt Count 342 D Neut % (Auto) 59 Lymph % (Auto) 21 [place] % (Auto) 10 Eos % (Auto) 8 Baso % (Auto) 0 Neut # (Auto) 5.4 Lymph # (Auto) 1.9 [place] # (Auto) 0.9 H Eos # (Auto) 0.8 H Baso # (Auto) 0.0 Immature Gran # (Auto) 0.08 H Absolute Nucleated RBC 0.00 Immature Gran % 1 H Nucleated RBC % 0 ESR 74 H Sodium 138 Potassium 4.4 Chloride 105 Carbon Dioxide 25.3 Anion Gap 8 BUN 59 H Creatinine 3.0 H Estim Creat Clear Calc 27.0 L eGFR 23 L BUN/Creatinine Ratio 20 Glucose 113 H Calculated Osmolality 293 Calcium 8.7 Magnesium 2.1 C-Reactive Prot, Quant 3.6 H ABG Interpretation ABG results: 01/25/24 01/25/24 01/26/24 19:50 20:13 03:33 ABG pH Cancelled 7.36 7.36 ABG pCO2 Cancelled 39 39 ABG pO2 Cancelled 53 L* 77 L D ABG HCO3 Cancelled 22 22 ABG O2 Saturation Cancelled 87 L 96 ABG Base Excess Cancelled -3 -3 Quality Measures Quality Measures VTE prophylaxis (heparin subcutaneously) Assessment & Plan Assessment Current Active Medications: Generic Name Dose Route Start Last Admin Trade Name Yoan PRN Reason Stop Dose Admin Acetaminophen 650 mg 01/24/24 19:40 Acetaminophen 325 Mg Tablet PO 02/23/24 19:39 Q6H PRN Fever >101.5 Atorvastatin Calcium 40 mg 01/27/24 21:00 02/01/24 21:55 Atorvastatin Calcium 20 Mg Tablet PO 02/26/24 20:59 40 mg HS ANAMARIA Administration Bumetanide 2 mg 01/26/24 09:00 02/02/24 08:41 Bumetanide Inj 0.25 Mg/Ml Vial 4 Ml IVP 02/25/24 08:59 2 mg BID ANAMARIA Administration Carvedilol 6.25 mg 01/31/24 17:30 02/02/24 08:40 Carvedilol 3.125 Mg Tablet PO 03/01/24 17:29 6.25 mg BIDWM ANAMARIA Administration Dextrose 25 ml 01/24/24 19:42 Dextrose 50%-Water Inj 50 Ml Syringe IV 02/23/24 19:41 Q15MIN PRN BG 50-70 responsive npo pt Dextrose 50 ml 01/24/24 19:42 Dextrose 50%-Water Inj 50 Ml Syringe IV 02/23/24 19:41 Q15MIN PRN BG <50 OR BG <70 & pt unresponsive Doxycycline Hyclate 100 mg 02/01/24 21:00 02/02/24 08:41 Doxycycline 100 Mg Tablet PO 02/08/24 20:59 100 mg BID ANAMARIA Administration Glucagon 1 mg 01/24/24 19:42 Glucagon Inj 1 Mg Vial IM Q15MIN PRN BG <70, and no IV access Heparin Sodium (Porcine) 5,000 unit 01/24/24 22:00 02/02/24 05:43 Heparin Sod Inj 5000 Unit/Ml Vial SC 02/07/24 21:59 5,000 unit Q8HR ANAMARIA Administration Hydralazine HCl 100 mg 01/28/24 08:15 02/02/24 08:40 Hydralazine Hcl 25 Mg Tablet PO 02/27/24 08:14 100 mg Q8H ANAMARIA Administration Protocol Ceftriaxone Sodium 2 gm/ 50 mls @ 100 mls/hr 02/02/24 09:00 02/02/24 08:41 Sodium Chloride IV 02/09/24 08:59 100 mls/hr QDAY ANAMARIA Administration Insulin Glargine 10 unit 01/25/24 09:00 02/02/24 08:43 Insulin Glargine (Lantus) 5 Unit/0.05 Ml (Per 5 Units) SC 02/24/24 08:59 10 unit QDAY ANAMARIA Administration Insulin Human Regular 0 unit 01/24/24 21:00 02/02/24 07:50 Insulin Hum Regular 1 Unit/0.01 Ml (Per Unit) SC 02/23/24 20:59 Not Given ACHS [facility] Protocol Ipratropium [place] 0.5 mg 01/24/24 21:01 01/28/24 16:33 Ipratropium Rt 0.5 Mg/ 2.5 Ml Nebu INH 02/23/24 21:00 0.5 mg Q6HRRT PRN Administration SHORTNESS OF BREATH OR WHEEZE Protocol Levalbuterol HCl 1.25 mg 01/25/24 01:00 02/02/24 07:54 Levalbuterol Rt 1.25 Mg/0.5 Ml Nebu INH 02/24/24 00:59 Not Given Q6HRRT [facility] Ondansetron HCl 4 mg 01/25/24 05:02 01/25/24 05:11 Ondansetron Inj 2 Mg/Ml Inj 2 Ml IV 02/24/24 05:01 4 mg Q6HR PRN Administration NAUSEA OR VOMITING Protocol Plan 63-year-old male with past medical history of HFpEF (EF 50 to 55%) DM2, hyperlipidemia, hypertension, prior osteomyelitis of right first toe s/p amputation was admitted to the hospital on 01/24/2024 for acute hypoxic respiratory failure secondary to acute decompensated heart failure exacerbation and sepsis likely secondary to pneumonia versus osteomyelitis. #Acute decompensated heart failure exacerbation #HFpEF (EF 50 to 55% 01/2024) #Acute hypoxic respiratory failure #Bilateral pleural effusions ?Patient came in with shortness of breath, bilateral lower extremity edema, and orthopnea ?Patient's last echo on 09/2023 showed an ejection fraction of 60 to 65% ?Chest x-ray 01/24/24 showed moderate heart failure ?BNP 671 -Echo showed EF 50-55% 01/2024 -Pleural fluid was transudative using lights criteria, most likely due to HF exacerbation. Plan: ?Continue IV Bumex 2mg twice daily -Continue Carvedilol to 6.25mg BID ?Strict CHAR's ?Fluid restrictions 1500 mL daily -Daily weights ?Keep potassium above 4 and magnesium above 2 -Low sodium diet -Cardiology consulted (Dr. Soriano), appreciate recommendations ?Will continue to monitor #Sepsis secondary to osteomyelitis #Pneumonia #Osteomyelitis ?Initially patient met SIRS criteria 2 out of 4 with leukocytosis and tachypnea ?Chest x-ray showed bilateral pneumonia and pleural effusions -CXR 01/27/2024 showed extensive ANGEL PNA ?Right foot x-ray showed osteomyelitis in the amputated first metatarsal and second metatarsophalangeal joint ?WBC 9.1 ?Discontinue azithromycin and Rocephin -DC's vancomycin [01/25/2024?01/27/2024], Cefepime [01/24-01/28], DC'd levofloxacin [01/29/2024?02/01/2024] ?PICC line in place Plan: ?Started Doxycycline [02/01/2024-] and Rocephin [02/02/2024-] -IV Rocephin and Doxycycline upon DC until 02/27/2024 ?Breathing treatments as needed -Wound care ?Referral to physical therapy ?General Surgery consulted (Dr. Serna), recommended no surgery at the moment and to continue antibiotics #JOSE MARIA on CKD ?Patient has some underlying CKD since last year with GFR in the high 30s to 40s -Baseline Cr 1.9 and was 2.8 on admission -Likely prerenal given heart failure and volume overload status ?BUN 59 and creatinine 3 today Plan: ?Avoid nephrotoxic agents ?Renally dose medications -Continue Diuresis -Nephrology consulted, appreciated recommendations ? Will continue to monitor #Scabies ? Patient stated that multiple residents in his rehab center were diagnosed with scabies. ?Patient has multiple excoriations on his entire back and bilateral upper extremities. Plan: ? Permethrin x 1 done on 01/26/2024 ? Contact precautions ?will continue to monitor #Normocytic normochromic anemia ?Patient has a Hx of normocytic anemia with Hgb 10.4 prior to admission - Hgb 7.3 Plan: ?Will transfuse if hemoglobin less than 7 ?Will continue to monitor #Hx of DM2 ?A1c 6.2 on 01/25/2024 Plan: ?ISS ? Accu-Cheks and hypoglycemia protocol ? Will continue to monitor #Hx of hyperlipidemia ?Triglycerides 227, cholesterol 148, LDL 86, HDL 17 on 10/05/2023 Plan: ?Continue atorvastatin 40 mg #Hx of HTN -Continue hydralazine 100mg every 8 hours Disposition: Patient seen in telemetry continuing Antibiotic for Sepsis,pedning SNF placement. Diet: Cardiac and carb consistent GI prophylaxis: not indicated DVT prophylaxis: Heparin sc Code: Full Case disclosed with Attending Dr. Huynh and My senior Dr. Barrera PGY2 Henri Perkins PGY1 Attending Provider Attestation/Addendum 43-year-old male with multiple comorbidities including type 2 diabetes mellitus, hypertension, hyperlipidemia and heart failure with preserved EF who was admitted on 01/24/2024 with shortness of breath found to have acute sided heart failure exacerbation with bilateral pleural effusion IV diuretic therapy. In addition, patient also found to have osteomyelitis patient has a PICC line in place and IV antibiotic therapy until February 27, 2024. I reviewed above note and agree with findings and plans. I have also personally examined the patient with medicine team and went over assessment and plan with medical team including inclusion internship and resident physician.
[2024-02-02] MEDS: INSULIN HUM REGULAR 1 UNIT/0.01 ML (PER UNIT) SC ×2 (11:34→17:20)
[2024-02-02] MEDS: LEVALBUTEROL RT 1.25 MG/0.5 ML NEBU INH ×2 (13:46→19:17)
[2024-02-02] MEDS: SODIUM CHLORIDE RT SOL 0.9% 3 ML NEBU INH (19:17)
[2024-02-02] MEDS: ATORVASTATIN CALCIUM 20 MG TABLET 40 MG PO (21:28)
[2024-02-03] VITALS (143 sets, daily range): BP systolic 142–163; BP diastolic 73–86; PULSE 67–80; RESP 0–27; TEMP 36.1–36.8; O2SAT 94–100
[2024-02-03] MEDS: LEVALBUTEROL RT 1.25 MG/0.5 ML NEBU INH ×4 (00:07→18:27)
[2024-02-03] MEDS: hydrALAZINE HCL 25 MG TABLET 100 MG PO ×3 (00:11→16:55)
[2024-02-03] MEDS: HEPARIN SOD INJ 5000 UNIT/ML VIAL SC ×3 (05:15→21:15)
[2024-02-03 05:56] LABS: Basophils % (Auto) 0 % (0-2.5); Eosinophils # (Auto) 0.6 Thou/mm3 (0.0-0.5); Eosinophils % (Auto) 6 % (0-10); Immature Granulocytes % (Auto) 2 % (0-0); Immature Granulocytes Auto 0.18 Thou/mm3 (0.00-0.00); Lymphocytes % (Auto) 21 % (10-50); Mean Corpuscular HGB Conc 30.7 g/dl (31.0-37.0); Mean Corpuscular Hemoglobin 25.5 pg (25.0-35.0); Mean Corpuscular Volume 83 fL (80-100); Monocytes % (Auto) 11 % (0-12); Neutrophils # (Auto) 5.8 Thou/mm3 (1.8-7.7); Neutrophils % (Auto) 60 % (37-80); Nucleated Red Blood Cell % 0 /100 WBC (0); Platelet Count 341 Thou/mm3 (140-440); RDW Standard Deviation 44.1 fL (35.1-43.9); Red Blood Count 2.71 Miln/mm3 (4.50-5.90); White Blood Count 9.7 Thou/mm3 (3.8-10.6)
[2024-02-03 05:58] LABS: Hemoglobin 6.9 g/dL (13.5-16.0)
[2024-02-03 05:59] LABS: Hematocrit 22.5 % (41.0-53.0)
[2024-02-03 06:29] LABS: Alanine Aminotransferase 31 U/L (10-49); Albumin, Serum 3.2 gm/dL (3.4-4.8); Alkaline Phosphatase 173 U/L (46-116); Anion Gap 5 (7-16); Aspartate Amino Transferase 30 U/L (0-34); BUN/Creatinine Ratio 24 Ratio (12-20); Bilirubin,Total 0.2 mg/dL (0.3-1.2); Blood Urea Nitrogen 66 mg/dL (9-23); Calcium 8.3 mg/dL (8.3-10.6); Calcium (Corrected) 8.9 mg/dL (8.5-10.1); Carbon Dioxide 26.9 mMol/L (20.0-31.0); Chloride 104 mMol/L (98-107); Creatinine (Component) 2.8 mg/dL (0.6-1.3); Estimated Creatinine Clearance 28.7 mL/min (>60); Globulin 3.2 gm/dL (2.3-3.5); Glucose 116 mg/dL (74-106); Magnesium 1.9 mg/dL (1.6-2.6); Osmolality,Calculated 291 (275-295); Potassium 4.4 mMol/L (3.4-5.1); Sodium 136 mMol/L (136-145); Total Protein 6.4 gm/dL (5.7-8.2); eGFR 25 See Note
[2024-02-03] MEDS: BUMETANIDE INJ 0.25 MG/ML VIAL 4 ML 2 MG IVP ×2 (08:58→21:14)
[2024-02-03] MEDS: DOXYCYCLINE 100 MG TABLET PO ×2 (08:58→21:14)
[2024-02-03] MEDS: carVEDILOL 3.125 MG TABLET 6.25 MG PO ×2 (08:59→16:55)
[2024-02-03] MEDS: cefTRIAXone 2 GM in SODIUM CHLORIDE 0.9% (P) 50 ML IV (09:00)
[2024-02-03] MEDS: INSULIN GLARGINE (Lantus) 5 UNIT/0.05 ML (PER 5 UNITS) 10 UNIT SC (09:03)
[2024-02-03 09:42] LABS: Hematocrit 24.3 % (41.0-53.0)
[2024-02-03 09:58] LABS: Hemoglobin 7.5 g/dL (13.5-16.0)
--- NOTE | 2024-02-03 10:07 | PD.NEPHPROG ---
Documentation for date of: 02/03/24 Subjective Subjective Interval history: Mr. Sandoval is a 63 y/o M with PMHx significant for type 2 diabetes mellitus, hyperlipidemia, and hypertension who presents with shortness of breath and chest discomfort. Symptoms started approximately a week ago but acutely worsened overnight to the point where he would get short of breath after just a few steps, prompting him to come to the ED. Endorses orthopnea, PND, and bilateral lower extremity edema. Regarding his chest pain, describes it as substernal, pressure-like, worse with activity, and does not subside with rest. 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 Previously admitted and treated for osteomyelitis of right hallux on 09/2023 and underwent transmetatarsal amputation discharged with 7-day course of doxycycline that patient completed. Patient was hypertensive at 175/85 and hypoxic 86% on room air increased to 98% on 8 L oxy mask in the ED. Chest x-ray showed vascular congestion, bilateral pleural effusions. Patient received DuoNebs, ceftriaxone, and 40 mg Lasix in the ED. Patient admitted for acute hypoxic respiratory failure secondary to acute decompensated heart failure exacerbation and sepsis likely secondary to pneumonia versus osteomyelitis. Patient labs on admission showed BUN 56, creatinine 2.8, eGFR 25 compared to baseline BUN 40, baseline creatinine 1.9, baseline eGFR 39. Patient has been treated for presumptive prerenal JOSE MARIA due to volume overload with Bumex 2 mg IV twice daily, patient has not shown improvement in renal function. Urinalysis shows nephrotic range proteinuria 3+. Nephrology consulted for worsening JOSE MARIA on CKD despite diuretic treatment. Patient seen and examined on the floors. Patient resting in bed, appears mildly distressed and chronically ill. Patient has clear signs of fluid overload: Anasarca, crackles on lung auscultation. Held patient's amlodipine due to risk of increased edema. At time of exam labs showed BUN 61, creatinine 2.5, eGFR 28. Additional urine studies ordered. Renal ultrasound performed, showed moderate bilateral renal parenchymal scar formation, no hydronephrosis. 01/29: Patient seen and examined in telemetry. Patient appears mildly uncomfortable, ill appearing. Patient was anemic at 6.9 hemoglobin, repeat H&H showed hemoglobin 7.4. Patient remains severely fluid overloaded. BUN 61, creatinine 2.7, eGFR 26. Random urine creatinine?68, urine total protein 169, ratio 2.4. PTH 89. 24-hour urine collection pending. 1.9 L in, 1.5 L. 01/31/2024 patient currently seen in telemetry. Family at bedside.24-hour urine showed 2.5 g of protein per day. WBC 10, hemoglobin 7.1, platelets 351. Sodium 138, potassium 4.7, BUN 62, creatinine 2.7, GFR 26, phosphorus 4, ferritin 132, iron saturation 7, alk phos 142, albumin 3.1, B12 342, vitamin D23.5, PTH 89, urinalysis shows proteinuria. Patient had 2.1 L of urine. 02/03/2024 patient currently seen in telemetry. Resting comfortably. His shortness of breath is tad better. Blood pressure 144/79, heart rate 71. Hemoglobin 7.5. Sodium 136, potassium 4.4, BUN 66, creatinine 2.8, glucose 116, magnesium 1.9, LFTs normal, albumin 3. Patient anxious to go home. .2 Review of Systems Review of Systems Narrative Review of Systems: CONSTITUTIONAL: Patient denies any fever, chills. HEENT: Denies any visual disturbances or hearing problems. CARDIOVASCULAR: Patient denies any chest pain.complaining of shortness of breath, swelling in the lower extremities. PULMONARY: Patient complaining of shortness of breath, cough. GASTROINTESTINAL: Patient denies any abdominal pain, constipation, nausea, vomiting, diarrhea. GENITOURINARY: Patient denies any urinary symptoms of burning or frequency or hematuria, ++ form in the urine. SKIN: Stasis dermatitis MUSCULOSKELETAL: Complaining of gait imbalance. Right foot surgery NEUROLOGICAL: Denies any neurological problems of strokes, seizures or confusion. Denies any memory problems. PSYCHIATRIC: Admits depression Exam Vital Signs Temp Pulse Resp BP Pulse Ox O2 Del Method O2 Flow Rate 36.2 C 71 18 153/86 H 98 Nasal Cannula 2 02/03/24 08:00 02/03/24 08:59 02/03/24 08:00 02/03/24 08:59 02/03/24 08:00 02/03/24 08:00 02/03/24 08:00 FiO2 0 02/03/24 08:00 Narrative Exam PE: Gen: Well-developed and well-nourished. HEENT: NCAT, PERRLA, EOMI, MMM, anicteric conjunctivae. CVS: normal S1 and S2. RRR. No M/R/G. Resp: Lungs clear to auscultation bilaterally. Abd: Mildly tender, distended, anasarca MSK: Good ROM in BUE & BLE. Bilateral lower extremity edema with skin changes secondary to chronic PAD. Sacral edema. Neuro: CN II-XII grossly intact. Strength 5/5 in BUE & BLE. Alert and oriented x3. Psych: appropriate mood and affect. Objective Labs 02/03/24 09:30 02/03/24 05:15 Labs: Laboratory Results - last 24 hr 02/03/24 02/03/24 05:15 09:30 WBC 9.7 RBC 2.71 L Hgb 6.9 L* 7.5 L Hct 22.5 L 24.3 L MCV 83 MCH 25.5 MCHC 30.7 L RDW Std Deviation 44.1 H Plt Count 341 Neut % (Auto) 60 Lymph % (Auto) 21 [place] % (Auto) 11 Eos % (Auto) 6 Baso % (Auto) 0 Neut # (Auto) 5.8 Lymph # (Auto) 2.0 [place] # (Auto) 1.0 H Eos # (Auto) 0.6 H Baso # (Auto) 0.0 Immature Gran # (Auto) 0.18 H Absolute Nucleated RBC 0.00 Immature Gran % 2 H Nucleated RBC % 0 Sodium 136 Potassium 4.4 Chloride 104 Carbon Dioxide 26.9 Anion Gap 5 L BUN 66 H Creatinine 2.8 H Estim Creat Clear Calc 28.7 L eGFR 25 L BUN/Creatinine Ratio 24 H Glucose 116 H Calculated Osmolality 291 Calcium 8.3 Corrected Calcium 8.9 Magnesium 1.9 Total Bilirubin 0.2 L AST 30 ALT 31 Alkaline Phosphatase 173 H Total Protein 6.4 Albumin 3.2 L Globulin 3.2 Albumin/Globulin Ratio 1.0 L ABG Interpretation ABG results: 01/25/24 01/25/24 01/26/24 19:50 20:13 03:33 ABG pH Cancelled 7.36 7.36 ABG pCO2 Cancelled 39 39 ABG pO2 Cancelled 53 L* 77 L D ABG HCO3 Cancelled 22 22 ABG O2 Saturation Cancelled 87 L 96 ABG Base Excess Cancelled -3 -3 Assessment & Plan Additional Assessment & Plan Additional Plan: 63 y/o M with PMHx significant for HFpEF (EF 50 to 55%) DM2, hyperlipidemia, hypertension, prior osteomyelitis of right first toe s/p amputation was admitted to the hospital on 01/24/2024 for acute hypoxic respiratory failure secondary to acute decompensated heart failure exacerbation and sepsis likely secondary to pneumonia versus osteomyelitis. #JOSE MARIA on CKD Patient seems to have combination of cardiorenal syndrome and nonnephrotic range proteinuria as a cause for significant anasarca. JOSE MARIA secondary to prerenal azotemia from CHF decompensation. Underlying chronic kidney disease from diabetic nephropathy. 24-hour urine showed 2.5 g of proteinuria. Had a long conversation with patient regarding diuretic dependent/resistant state and need for sequential ultrafiltration if no improvement in edema. Patient agreed. Currently his creatinine stable at 2.8. No need for emergency dialysis. He will be left with elevated BUN and creatinine to maintain a euvolemic state. Renal ultrasound showed moderate bilateral renal parenchymal scar formation, no hydronephrosis. Plan: -Avoid nephrotoxic agents -Renally dose medications -Hold amlodipine -Strict I's and O's -Continue Diuresis-currently on 2 mg IV Bumex twice daily -Will continue to monitor #Acute decompensated heart failure exacerbation. #HFpEF (EF 50 to 55% 01/2024). #Acute hypoxic respiratory failure. On oxygen #Bilateral pleural effusions. #Sepsis likely secondary to pneumonia versus osteomyelitis-resolved #Pneumonia #Normocytic normochromic anemia #Hx of DM2 #Hx of hyperlipidemia #Hx of HTN per primary team Quality - progress note Quality Measures Quality Measures: VTE prophylaxis Reason for Continued Stay Reason for Continued Stay: further monitoring
--- NOTE | 2024-02-03 10:34 | PD.RESPRO ---
Documentation for date of: 02/03/24 Subjective Subjective Interval history: Patient is [place]-speaking only and interaction facilitated by healthcare technical support analyst Patient was seen and examined at bedside this AM. No acute exents overnight. Patient tolerating diet, adequate urine output and mentation is at baseline. Patient endorses improvement of his SOB and can now ambulate with a walker without SOB while on O2 Bicarb uptrended to 26.9 from 25.3 , Cr decreased to 2.8 from 3 and BUN increased to 66 from 59 Patient still has significant LE and Sacral edema but much improved Significant edema due to both acute decompensated heart failure exacerbation and Severe Proteinuria 2.5 g /24hours Patient currently on IV diuresis with Bumex 2 Mg IV twice daily. Fluid balance of negative 450cc in past 24 hours. Continue diuresis with goal of 1?2 L per day Potassium 4.4 and magnesium 1.9. Repleted with MgSO4 2G IV x 1. Continue to maintain potassium greater than 4 and magnesium greater than 2 at all times to prevent any arrhythmias. Patient still continues to be hypertensive, but SBPs between 150's and 160's overnight Patient currently on Coreg 6.25 Mg p.o. twice daily as part of GDMT as his sepsis is now resolving. Uptitrate the beta-moi for now. Continue hydralazine 100 mg p.o. 3 times daily for better blood pressure control as he is also CKD stage IIIb An additional dose of Bumex 2mg IV x1 was recommended on 01/28, however it was not given Metolazone 5mg po x 1 was given for extra diuresis on 01/30 Amlodipine was held as per Nephrology recommendations Ideally patient should be on ARB for better blood pressure control and as part of GDMT, however due to his JOSE MARIA on CKD stage IV on hold for now as per Dr. Main, Nephrology recommendations Patient's Hb 6.9. Recommended complete anemia workup for the patient to transfuse 1 unit PRBC to keep the hemoglobin between 7 and 8 Exam Vital Signs Temp Pulse Resp BP Pulse Ox O2 Del Method O2 Flow Rate 97.1 F 71 18 153/86 H 98 Nasal Cannula 2 02/03/24 08:00 02/03/24 08:59 02/03/24 08:00 02/03/24 08:59 02/03/24 08:00 02/03/24 08:00 02/03/24 08:00 FiO2 0 02/03/24 08:00 Narrative Exam Constitutional Alert, oriented x 3 and Comfortable. On 2 L O2 via NC. Can speak full sentences HEENT Vision grossly intact. Patent nares. Trachea midline Respiratory Chest normal on inspection and clear to auscultation. Bandage on left and right back from thoracentesis noted Cardiovascular S1 and S2 audible, RRR. No murmurs carotid bruit. No gross JVD. Abdominal Soft,obese and non tender to palpation in all quadrants. BS + Genitourinary No bladder tenderness, no flank pain. Normal to palpation. No scrotal edema Musculoskeletal Extremities tone within normal limits. 2+ LE edema up to knees B/L. sacral edema, much improved. Bandage noted on R foot Neurological CN II - XII grossly intact. Extremity motor and sensation grossly intact. Skin Warm, dry and intact. No apparent lesions. Psychiatric Patient has good affect, is cooperative Objective Labs 02/03/24 09:30 02/03/24 05:15 Labs: Laboratory Results - last 24 hr 02/03/24 02/03/24 05:15 09:30 WBC 9.7 RBC 2.71 L Hgb 6.9 L* 7.5 L Hct 22.5 L 24.3 L MCV 83 MCH 25.5 MCHC 30.7 L RDW Std Deviation 44.1 H Plt Count 341 Neut % (Auto) 60 Lymph % (Auto) 21 [place] % (Auto) 11 Eos % (Auto) 6 Baso % (Auto) 0 Neut # (Auto) 5.8 Lymph # (Auto) 2.0 [place] # (Auto) 1.0 H Eos # (Auto) 0.6 H Baso # (Auto) 0.0 Immature Gran # (Auto) 0.18 H Absolute Nucleated RBC 0.00 Immature Gran % 2 H Nucleated RBC % 0 Sodium 136 Potassium 4.4 Chloride 104 Carbon Dioxide 26.9 Anion Gap 5 L BUN 66 H Creatinine 2.8 H Estim Creat Clear Calc 28.7 L eGFR 25 L BUN/Creatinine Ratio 24 H Glucose 116 H Calculated Osmolality 291 Calcium 8.3 Corrected Calcium 8.9 Magnesium 1.9 Total Bilirubin 0.2 L AST 30 ALT 31 Alkaline Phosphatase 173 H Total Protein 6.4 Albumin 3.2 L Globulin 3.2 Albumin/Globulin Ratio 1.0 L ABG Interpretation ABG results: 01/25/24 01/25/24 01/26/24 19:50 20:13 03:33 ABG pH Cancelled 7.36 7.36 ABG pCO2 Cancelled 39 39 ABG pO2 Cancelled 53 L* 77 L D ABG HCO3 Cancelled 22 22 ABG O2 Saturation Cancelled 87 L 96 ABG Base Excess Cancelled -3 -3 Quality Measures Quality Measures VTE prophylaxis (heparin subcutaneously) Assessment & Plan Assessment Current Active Medications: Generic Name Dose Route Start Last Admin Trade Name Frefidencio PRN Reason Stop Dose Admin Acetaminophen 650 mg 01/24/24 19:40 Acetaminophen 325 Mg Tablet PO 02/23/24 19:39 Q6H PRN Fever >101.5 Atorvastatin Calcium 40 mg 01/27/24 21:00 02/02/24 21:28 Atorvastatin Calcium 20 Mg Tablet PO 02/26/24 20:59 40 mg HS ANAMARIA Administration Bumetanide 2 mg 01/26/24 09:00 02/03/24 08:58 Bumetanide Inj 0.25 Mg/Ml Vial 4 Ml IVP 02/25/24 08:59 2 mg BID ANAMARIA Administration Carvedilol 6.25 mg 01/31/24 17:30 02/03/24 08:59 Carvedilol 3.125 Mg Tablet PO 03/01/24 17:29 6.25 mg BIDWM ANAMARIA Administration Dextrose 25 ml 01/24/24 19:42 Dextrose 50%-Water Inj 50 Ml Syringe IV 02/23/24 19:41 Q15MIN PRN BG 50-70 responsive npo pt Dextrose 50 ml 01/24/24 19:42 Dextrose 50%-Water Inj 50 Ml Syringe IV 02/23/24 19:41 Q15MIN PRN BG <50 OR BG <70 & pt unresponsive Doxycycline Hyclate 100 mg 02/01/24 21:00 02/03/24 08:58 Doxycycline 100 Mg Tablet PO 02/08/24 20:59 100 mg BID ANAMARIA Administration Glucagon 1 mg 01/24/24 19:42 Glucagon Inj 1 Mg Vial IM Q15MIN PRN BG <70, and no IV access Heparin Sodium (Porcine) 5,000 unit 01/24/24 22:00 02/03/24 05:15 Heparin Sod Inj 5000 Unit/Ml Vial SC 02/07/24 21:59 5,000 unit Q8HR ANAMARIA Administration Hydralazine HCl 100 mg 01/28/24 08:15 02/03/24 08:58 Hydralazine Hcl 25 Mg Tablet PO 02/27/24 08:14 100 mg Q8H ANAMARIA Administration Protocol Ceftriaxone Sodium 2 gm/ 50 mls @ 100 mls/hr 02/02/24 09:00 02/03/24 09:00 Sodium Chloride IV 02/09/24 08:59 100 mls/hr QDAY ANAMARIA Administration Insulin Glargine 10 unit 01/25/24 09:00 02/03/24 09:03 Insulin Glargine (Lantus) 5 Unit/0.05 Ml (Per 5 Units) SC 02/24/24 08:59 10 unit QDAY ANAMARIA Administration Insulin Human Regular 0 unit 01/24/24 21:00 02/03/24 07:37 Insulin Hum Regular 1 Unit/0.01 Ml (Per Unit) SC 02/23/24 20:59 Not Given ACHS ANAMARIA Protocol Ipratropium [place] 0.5 mg 01/24/24 21:01 01/28/24 16:33 Ipratropium Rt 0.5 Mg/ 2.5 Ml Nebu INH 02/23/24 21:00 0.5 mg Q6HRRT PRN Administration SHORTNESS OF BREATH OR WHEEZE Protocol Levalbuterol HCl 1.25 mg 01/25/24 01:00 02/03/24 06:41 Levalbuterol Rt 1.25 Mg/0.5 Ml Nebu INH 02/24/24 00:59 1.25 mg Q6HRRT ANAMARIA Administration Ondansetron HCl 4 mg 01/25/24 05:02 01/25/24 05:11 Ondansetron Inj 2 Mg/Ml Inj 2 Ml IV 02/24/24 05:01 4 mg Q6HR PRN Administration NAUSEA OR VOMITING Protocol Plan Patient is a 63-year-old male with a past medical history significant for essential hypertension for more than 20 years, hyperlipidemia does not appear to be statin at home, insulin-dependent diabetes mellitus type 2 [6.2] more than 30 years and CKD stage 3 B. Does not have a primary care doctor. Patient presented to the ED on 01/23 with a chief complaint of SOB and chest discomfort for 1 week. Cardiology was consulted for acute decompensated heart failure. 1. Acute respiratory failure with hypoxia Secondary to 2. Anasarca - Acute decompensated heart failure with preserved ejection fraction [50-55%] 3. Nephrotic syndrome ruled out 4. B/L pleural effusions On admission patient was SOB at rest associated with chest discomfort for the past week which worsened the day of admission. BNP was elevated at 671 and troponin were negative on admission. Patient's home diuretic hydrochlorothiazide 50 Mg p.o. daily and furosemide 20 Mg p.o. daily. Chest x-ray showed moderate vascular congestion with bilateral pleural effusion and possible superimposed lower lobe consolidation bilateral. EKG showed sinus rhythm rate 95 NYHA stage C class IV Transthoracic echocardiogram completed on 01/26/2024 findings include: Normal LV size and function. Estimated EF 50-55% Normal RV size and function. Trace MR, TR. Left pleural effusion present. Previous echocardiogram from 10/06/2023: Normal LV size and function. Stage I diastolic dysfunction. Estimated EF 60-65%. Initially patient was diuresed with Lasix 40 Mg IV daily but was minimally responsive and was eventually switched to Bumex 2 Mg IV twice daily with better response. Patient also had therapeutic/diagnostic Left thoracentesis done 01/25 for bilateral large pleural effusion. Approximately 600 cc of straw-colored fluid was drained and pleural fluid analysis was significant for transudative picture confirming etiology of CHF. Patient endorses improvement of his SOB and can now ambulate with a walker without SOB while on O2 Bicarb uptrended to 26.9 from 25.3 , Cr decreased to 2.8 from 3 and BUN increased to 66 from 59 Patient still has significant LE and Sacral edema but much improved Significant edema due to both acute decompensated heart failure exacerbation and Severe Proteinuria 2.5 g /24hours Patient currently on IV diuresis with Bumex 2 Mg IV twice daily. Fluid balance of negative 450cc in past 24 hours. Continue diuresis with goal of 1?2 L per day Potassium 4.4 and magnesium 1.9. Repleted with MgSO4 2G IV x 1. Continue to maintain potassium greater than 4 and magnesium greater than 2 at all times to prevent any arrhythmias. Pleural fluid culture from 01/25 grew Staphylococcus hemolyticus. Plan: ? Strict input output charting ? 2 g sodium restricted diet ? 1500 cc a day fluid restriction ? Aim for diuresis of 1?2 L per day - Continue Coreg to 6.25 mg po BID for better blood pressure control - recommended to increase Coreg to 12.5 mg twice daily and 25 mg twice daily now that patient is being adequately diuresed. ? Continue diuresis with Bumex 2 Mg IV twice daily - Recommend goal-directed medical therapy for heart failure. Patient may not be able to start Entresto due to his CKD but can start spironolactone at a later time. Patient also appears to be on SGLT2 as part of his home medication which can also be restarted on discharge. 5. Proteinuria 6. Diabetic Nephropathy Patient still has significant LE and Sacral edema, Nephrology was consulted on 01/28 due to worsening JOSE MARIA on CKD Urinalysis was significant for nephrotic range proteinuria and Renal USS significant for B/L renal cortical scarring without hydronephrosis. Nephrotic syndrome secondary to long standing uncontrolled DM was suspected by Dr. Main, Able Seaman who agrees with current management of Bumex 2m IV BID Estimated urine protein 2.5g / 24 hours, out of Nephrotic range. 24 hour urine protein also 2.5 g /24 hours Significant edema due to both acute decompensated heart failure exacerbation and Proteinuria 7. Essential hypertension Unsure of patient's home medication as he cannot recall the names and medication reconciliation not completed. It appears he might have been on amlodipine 10 Mg p.o. daily, furosemide 20 Mg p.o. daily and hydrochlorothiazide 50 Mg p.o. daily and Coreg 6.25 Mg p.o. twice daily. On admission patient's BP 175/85 Patient still continues to be hypertensive, but SBPs between 150's and 160's overnight Patient currently on Coreg 6.25 Mg p.o. twice daily as part of GDMT as his sepsis is now resolving Continue hydralazine 100 mg p.o. 3 times daily for better blood pressure control as he is also CKD stage IIIb An additional dose of Bumex 2mg IV x1 was recommended on 01/28, however it was not given Metolazone 5mg po x 1 was given for extra diuresis on 01/30 Amlodipine was held as per Nephrology recommendations Ideally patient should be on ARB for better blood pressure control and as part of GDMT, however due to his JOSE MARIA on CKD stage IV on hold for now as per Dr. Main, Nephrology recommendations Plan: ? Amlodipine held as per Nephrology recommendations - Recommend to continue hydralazine 100 mg p.o. 3 times daily for better blood pressure control as he is also JOSE MARIA on CKD stage IV - Continue Coreg 6.25mg po BID for better blood pressure control - Ideally patient should be on ARB for better blood pressure control and as part of GDMT, however due to his JOSE MARIA on CKD stage IV hold for as per Dr. Main, Nephrology recommendations - Recommend excellent control of blood pressure with systolic less than 140 mmHg. 8. Hyperlipidemia Upon chart review patient's last lipid panel from 10/05/2023 showed triglycerides 227, cholesterol 148, LDL 86. Patient does not appear to have been on a statin at home. Plan: ? Recommend to continue high intensity statin, atorvastatin 40 Mg p.o. at bedtime 9. Sepsis secondary to community-acquired pneumonia. On admission patient met SIRS 2/4. RR 24 and WBC 15.4. Chest x-ray showed bilateral lower lobe consolidation as source of infection. Procalcitonin was within normal limits on admission as well as lactic acid level. Patient did not have any fever during visit. Sputum Gram stain done on 01/25 showed 2+ GPC and rare WBCs, sputum culture still pending. Patient currently hypotensive with BP 151/86 and similar trend over the course of admission, no concern for hypotension at this time. Patient was treated with 2 days of azithromycin and Rocephin IV as well as vancomycin IV for 2 days. Patient is currently treated with cefepime. Blood cultures are currently pending with preliminary report no bacterial growth after 48 hours. Plan: ? Continue management as per primary team 10. JOSE MARIA on CKD stage IIIb Patient's baseline CR between 1.9?2. On admission patient CR 2.8. Etiology likely prerenal in the setting of CHF exacerbation. Continue management as per primary team and Nephrology 11. Insulin-dependent diabetes mellitus type 2 [6.2] Patient had diabetes mellitus for the past 30 years and currently on insulin, empagliflozin/metformin and Ozempic at home. Most recent HbA1c 6.2% from this admission. Continue management as per primary team 12. Right foot osteomyelitis s/p transmetatarsal amputation [September 2023] Patient has history of poorly controlled diabetes in the past leading to right foot ulcer and eventual osteomyelitis leading to amputation earlier this year. On this admission foot x-ray showed cortical bone destruction at the end of the first metatarsal as well as distal second metatarsal and proximal phalanx second digit. Negative for gas gangrene or acute osteomyelitis. Patient was evaluated by general surgeon, Dr Serna who assessed patient to have a superficial ulcer and not acute osteomyelitis. Foot ulcer unlikely source of patient's sepsis. ID was consulted who recommended treatment for 6 weeks with IV antibiotics Rocephin and Doxycycline to complete on 02/17/2024 13. Normocytic anemia On admission patient's Hb 8.9, from chart review baseline appears to be between 10?11. DDx: Iron deficiency anemia, anemia of chronic disease, thalassemia, sideroblastic anemia, lead poisoning. Iron panel from this admission showed iron low 18, TIBC low 243 and ferritin within normal limits 132 Etiology possibly multifactorial iron deficiency also anemia of chronic disease secondary to CKD. Recommend IV iron once sepsis resolves and Epogen on this admission for optimization of Hb. Patient's Hb 6.9. Recommend to transfuse 1 unit PRBC 14. Possible scabies Patient states that multiple residents at his rehab center were recently diagnosed with scabies. Patient also has multiple excoriations on his back and upper extremities. Patient was treated with permethrin x 1 on 01/26/2003/04/2024 and contact precautions were initiated. Contact precautions were removed Continue rest of management as per primary team. We are grateful to be able to participate in Mr. Sandoval' care. Thank you for the consult Plan of care discussed with attending Clinical Document Improvement Educator, Dr Christie Dominguez MD PGY 1 Attending Provider Attestation/Addendum I have personally seen and examined the patient separately on the above date of service and discussed the plan of care with the resident. I reviewed the resident Dr. Dominguez consultation progress note and agree with the resident findings and plan in the note above and have also edited the documentation to reflect my findings and plan. Kyle Soriano M.D. Interventional Cardiology
[2024-02-03] MEDS: Magnesium Sulfate 2 GM Ivpb 2 GM/50 ML BAG IV (11:34)
--- NOTE | 2024-02-03 14:46 | ESDS_ITS ---
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 01/27/24 10:41 Consult to Cardiology Routine Comment: Consulting Provider: Kyle Soriano 01/29/24 10:35 Consult to Nephrology Stat Comment: Consulting Provider: Regan Main 02/01/24 10:49 Consult to Infectious Diseases Routine Comment: Consulting Provider: Tu Oliver Attending Provider on DC: Yovany Huynh MD Discharging Provider: Yovany Huynh MD DS: Diagnosis Problem List Completed Was Problem List Reviewed/Reconciled?: Yes Hospital Course Hospital Course Hospital course: 63-year-old male with past medical history of HFpEF (EF 50 to 55%) DM2, hyperlipidemia, hypertension, prior osteomyelitis of right first toe s/p amputation was admitted to the hospital on 01/24/2024 for acute hypoxic respiratory failure secondary to acute decompensated heart failure exacerbation and sepsis likely secondary to pneumonia versus osteomyelitis. In ED patient had chief complaint of shortness of breath or started 2 days prior to admission. Initially patient was tachycardic, hypoxic, hypotensive, and afebrile. Initial labs were relevant for leukocytosis, normocytic chronic anemia, JOSE MARIA, and elevated BNP. Initial imaging included chest x-ray which showed bilateral pneumonia as well as moderate heart failure, foot x-ray showed osteomyelitis of amputated first metatarsal and second metatarsal phalangeal joint, and EKG shows sinus rhythm. Patient was placed on IV antibiotics, but was not placed on any IV fluids as he was having clinical picture of acute compensated heart failure exacerbation. He was diuresed for his acute decompensated heart failure exacerbation. He was also treated for possible scabies given history of scabies in residents in rehab center he came from, therefore he's scabies free. Overnight, on second day of admission patient was not tolerating BiPAP he was placed on the ICU for observation given patient's increased respiratory distress and possible need of intubation. Patient did not need intubation and he was downgraded back to the medical floors on the next morning and general surgeon did not recommend surgery at this time for his osteomyelitis as he said that IV antibiotics and wound care would suffice. Patient's newly ordered echo showed an EF of 50 to 55% he was started on Bumex 2 mg twice daily as well as continue on carvedilol 6.25 mg. Can patient's JOSE MARIA which continue uptrending and was most likely given his history of diabetes with some underlying CKD nephrology was consulted. Nephrology recommended to continue IV diuresis as patient was most likely in an cardiorenal syndrome. Patient had PICC line placed by IR to continue his IV antibiotics as an outpatient and ID was consulted for appropriate antibiotic regimen as an outpatient. Throughout his hospital stay patient also received bilateral thoracentesis for pleural effusions which greatly improved his respiratory distress. Patient remained stable throughout his hospital stay with continue IV diuresis as well as antibiotics. Blood culture were negative. Patient's dry weight at the time of discharge was 91.6 kg and was stable enough to be discharged to a alf facility for continuation of IV Rocephin and PO doxy for patient's osteomyelitis as well as diuresis for his fluid overload status given his heart failure exacerbation. Discharge plan: Follow up with PCP within 1 week. Continue home medications as prescribed. IV Rocephin and PO Doxycycline upon DC until 02/27/2024. Problem list: #Acute decompensated heart failure exacerbation #HFpEF (EF 50 to 55% 01/2024) #Acute hypoxic respiratory failure #Sepsis secondary to osteomyelitis #Bilateral pleural effusions #Community acquired pneumonia #Osteomyelitis #JOSE MARIA on CKD #Scabies, questionable, treated, resolved #Normocytic normochromic anemia #Hx of DM2 #Hx of hyperlipidemia #Hx of HTN Case disclosed with Attending Dr. Huynh and My senior Dr. Barrera PGY2. Herni Perkins PGY1 Status at Discharge Overall status at discharge: patient is progressing back to baseline Time Spent with Patient Time attestation: Total time spent providing and/or coordinating discharge services:>35 min Exam Vital Signs Temp Pulse Resp BP Pulse Ox O2 Del Method O2 Flow Rate 97.8 F 68 17 142/73 H 99 Nasal Cannula 2 02/03/24 12:00 02/03/24 13:45 02/03/24 13:45 02/03/24 12:00 02/03/24 13:45 02/03/24 12:00 02/03/24 12:01 FiO2 0 02/03/24 08:00 Narrative Exam General: A/O x3, no acute distress Eyes: PERRL, EOMI. Anicteric, vision grossly intact. Ears: No ear pain, no ear discharge, Hearing grossly intact. Nose: No nasal discharge. Mouth/Throat: Dry mucous membranes, no redness, no lesions. Neck: Short neck, non-tender, no cervical lymphadenopathy. Lungs: Clear ANGEL, No accessory muscle use. Cardio: Normal S1/S2, regular rhythm, no murmurs, no JVD Abdomen: Soft, non-tender, no palpable masses, peristalsis present, no guarding or rebound. Extremities: Symmetrical, no significant deformities, 3+ peripheral edema, but a lot better than initial presentation , non-tender, peripheral pulses present, R first toe amputation covered with clean dressing today. Skin: No rashes, no lesions, warm to touch. Multiple excoriations in entire back and UE. Neuro: No focal neurological deficits. motor and sensory intact Psych: Cooperative, appropriate mood and effect. Discharge Plan Plan Patient Disposition: Home w/HOME HEALTH Care Plan Goals: Follow up with PCP within 1 week. Stop taking amlodipine and furosemide. Start taking bumetanide 1 tab twice daily, carvedilol 6.25 mg twice daily, hydralazine 100 mg every 8 hours. Continue other home medications as prescribed. Follow up with cardiology within 1-2 weeks. IV Rocephin and Doxycycline upon DC until 02/27/2024. Prescriptions/Referrals Prescriptions/Med Rec: New atorvastatin 20 mg Tablet 40 mg PO HS Qty: 60 0RF hydralazine 25 mg Tablet 100 mg PO Q8H Qty: 90 0RF carvedilol 3.125 mg Tablet 6.25 mg PO BIDWM Qty: 60 0RF bumetanide 2 mg tablet 2 mg PO BID Qty: 60 0RF Continued hydrocodone-acetaminophen 10-300 mg tablet 1 tab PO Q8H MDD 3 PRN (Reason: pain) Qty: 15 0RF clonidine HCl 0.1 mg Tablet 0.1 mg PO BID insulin glargine [Lantus Solostar U-100 Insulin] 100 unit/mL (3 mL) Insulin Pen 15 unit SUBCUT HS Discontinued amlodipine 10 mg tablet 10 mg PO QDAY Qty: 30 0RF furosemide [Lasix] 20 mg tablet 40 mg PO TID Referrals: No Primary/Family,Physician [Primary Care Provider] - Patient/Caregiver Discharge Instructions Education Materials: Thoracentesis Dc, Osteomyelitis Dc Print Language: Danish Stand Alone Forms: Audrey Award Info., Patient Portal Info Letter Quality Discharge Quality Measures VTE prophylaxis Attestestation Attestation 43-year-old male with multiple comorbidities including type 2 diabetes mellitus, hypertension, hyperlipidemia and heart failure with preserved EF who was admitted on 01/24/2024 with shortness of breath found to have acute sided heart failure exacerbation with bilateral pleural effusion IV diuretic therapy. In addition, patient also found to have osteomyelitis patient has a PICC line in place and IV antibiotic therapy until February 27, 2024. I reviewed above note and agree with findings and plans. I have also personally examined the patient with medicine team and went over assessment and plan with medical team including mechanical engineering intern and resident physician.
--- NOTE | 2024-02-03 15:44 | PC.SS ---
Addendum entered by Thuy Garcia 02/03/24 16:25: SS was contacted by Susanne from [facility] informing SS to cancel transportation until tomorrow. SS will need to contact Susanne or Ingris from [facility] tomorrow. Original Note: SS was contacted by [facility] informing SS that auth was obtained. SS faxed over requested clinicals. SS attempted to set up transportation with [facility], however they were not able find patient. SS set up transportation for patient through [facility] with DAISHA form signed. ETA was set up for 1700. SS informed Susanne from [facility] as well as patient's nurse Ana Lilia.
--- NOTE | 2024-02-03 15:56 | PD.IDPROG ---
Subjective Subjective Interval history: on O2 . is on it at pr too. no overt recurrent effusion noted. last cxr 01/27. nearly a week ago now. Exam Vital Signs Temp Pulse Resp BP Pulse Ox O2 Del Method O2 Flow Rate 97.8 F 68 17 142/73 H 99 Nasal Cannula 2 02/03/24 12:00 02/03/24 13:45 02/03/24 13:45 02/03/24 12:00 02/03/24 13:45 02/03/24 12:00 02/03/24 12:01 FiO2 0 02/03/24 08:00 Narrative Exam foot relatively desensate. crp down a lot from before but not neg. Objective - Internal Medicine Labs 02/03/24 09:30 02/03/24 05:15 Labs: Laboratory Results - last 24 hr 02/03/24 02/03/24 05:15 09:30 WBC 9.7 RBC 2.71 L Hgb 6.9 L* 7.5 L Hct 22.5 L 24.3 L MCV 83 MCH 25.5 MCHC 30.7 L RDW Std Deviation 44.1 H Plt Count 341 Neut % (Auto) 60 Lymph % (Auto) 21 [place] % (Auto) 11 Eos % (Auto) 6 Baso % (Auto) 0 Neut # (Auto) 5.8 Lymph # (Auto) 2.0 [place] # (Auto) 1.0 H Eos # (Auto) 0.6 H Baso # (Auto) 0.0 Immature Gran # (Auto) 0.18 H Absolute Nucleated RBC 0.00 Immature Gran % 2 H Nucleated RBC % 0 Sodium 136 Potassium 4.4 Chloride 104 Carbon Dioxide 26.9 Anion Gap 5 L BUN 66 H Creatinine 2.8 H Estim Creat Clear Calc 28.7 L eGFR 25 L BUN/Creatinine Ratio 24 H Glucose 116 H Calculated Osmolality 291 Calcium 8.3 Corrected Calcium 8.9 Magnesium 1.9 Total Bilirubin 0.2 L AST 30 ALT 31 Alkaline Phosphatase 173 H Total Protein 6.4 Albumin 3.2 L Globulin 3.2 Albumin/Globulin Ratio 1.0 L ABG Interpretation ABG results: 01/25/24 01/25/24 01/26/24 19:50 20:13 03:33 ABG pH Cancelled 7.36 7.36 ABG pCO2 Cancelled 39 39 ABG pO2 Cancelled 53 L* 77 L D ABG HCO3 Cancelled 22 22 ABG O2 Saturation Cancelled 87 L 96 ABG Base Excess Cancelled -3 -3 Assessment & Plan A&P Narrative pleural effusion osteo rt foot dm II a1c 6.2 noted. may have improved more with ckd (insulin lasts longer in ckd) than with improved attention , but it is improved from >11 before ckd 3-4 htn favor about 5 more weeks of rocephin and doxy ( thru 02/26 ). for foot. if not working. you can try to get a surgical eval. I can not see him in f/u. see outpt primary. please arrange for weekly cbc, renal panel, esr on iv rx and line removal at end of rx. will see again prn. Time Spent With Patient Time: Total time spent is greater than 50% in coordination of care (as documented) at patient's floor/unit and/or counseling patient:
[2024-02-03] MEDS: INSULIN HUM REGULAR 1 UNIT/0.01 ML (PER UNIT) SC (16:55)
[2024-02-03] MEDS: SODIUM CHLORIDE RT SOL 0.9% 3 ML NEBU INH (18:27)
--- NOTE | 2024-02-03 18:51 | PC.NURSE ---
Hospitalist made aware that the patient is refusing lab draws and wound care. I tried multiple times and patient still refuses wound care and lab draws from the picc line
[2024-02-03] MEDS: ATORVASTATIN CALCIUM 20 MG TABLET 40 MG PO (21:14)
[2024-02-04] VITALS (18 sets, daily range): BP systolic 135–158; BP diastolic 75–80; PULSE 69–79; RESP 12–93; TEMP 36.4–36.7; O2SAT 94–100
[2024-02-04] MEDS: hydrALAZINE HCL 25 MG TABLET 100 MG PO ×3 (00:18→16:27)
[2024-02-04] MEDS: LEVALBUTEROL RT 1.25 MG/0.5 ML NEBU INH ×4 (00:31→19:44)
[2024-02-04] MEDS: SODIUM CHLORIDE RT SOL 0.9% 3 ML NEBU INH (00:31)
[2024-02-04] MEDS: HEPARIN SOD INJ 5000 UNIT/ML VIAL SC ×3 (05:22→21:55)
--- NOTE | 2024-02-04 07:43 | PD.RESPRO ---
Documentation for date of: 02/04/24 Subjective Subjective Interval history: Patient is Citizen Of [place]-speaking only and interaction facilitated by healthcare bicycle designer Patient was seen and examined at bedside this AM. No acute exents overnight. Patient tolerating diet, adequate urine output and mentation is at baseline. Patient endorses improvement of his SOB and can now ambulate with a walker without SOB while on O2 Patient is refusing labs today Patient still has significant LE but much improved Significant edema due to both acute decompensated heart failure exacerbation and Severe Proteinuria 2.5 g /24hours Patient currently on IV diuresis with Bumex 2 Mg IV twice daily. Fluid balance of negative 1365cc in past 24 hours. Continue diuresis with goal of 1?2 L per day Continue to maintain potassium greater than 4 and magnesium greater than 2 at all times to prevent any arrhythmias. Patient still continues to be hypertensive, but SBPs between 140's and 150's overnight Patient currently on Coreg 6.25 Mg p.o. twice daily as part of GDMT as his sepsis is now resolving. Uptitrate the beta-moi for now. Continue hydralazine 100 mg p.o. 3 times daily for better blood pressure control as he is also CKD stage IIIb An additional dose of Bumex 2mg IV x1 was recommended on 01/28, however it was not given Metolazone 5mg po x 1 was given for extra diuresis on 01/30 Amlodipine was held as per Nephrology recommendations Ideally patient should be on ARB for better blood pressure control and as part of GDMT, however due to his JOSE MARIA on CKD stage IV on hold for now as per Dr. Main, Nephrology recommendations Patient's Hb 7.5 from yesterday's labs. Recommended complete anemia workup for the patient to transfuse 1 unit PRBC to keep the hemoglobin between 7 and 8 Exam Vital Signs Temp Pulse Resp BP Pulse Ox O2 Del Method O2 Flow Rate 97.8 F 70 20 144/77 H 100 Nasal Cannula 1 02/04/24 04:43 02/04/24 06:21 02/04/24 06:21 02/04/24 04:43 02/04/24 06:21 02/04/24 04:43 02/04/24 06:21 FiO2 0 02/03/24 08:00 Narrative Exam Constitutional Alert, oriented x 3 and Comfortable. On 2 L O2 via NC. Can speak full sentences HEENT Vision grossly intact. Patent nares. Trachea midline Respiratory Chest normal on inspection and scattered crackles at bases. Bandage on left and right back from thoracentesis noted Cardiovascular S1 and S2 audible, RRR. No murmurs carotid bruit. No gross JVD. Abdominal Soft,obese and non tender to palpation in all quadrants. BS + Genitourinary No bladder tenderness, no flank pain. Normal to palpation. No scrotal edema Musculoskeletal Extremities tone within normal limits. 2+ LE edema up to knees B/L. much improved. Bandage noted on R foot Neurological CN II - XII grossly intact. Extremity motor and sensation grossly intact. Skin Warm, dry and intact. No apparent lesions. Psychiatric Patient has good affect, is cooperative Objective Labs 02/04/24 10:51 02/04/24 10:51 Labs: Laboratory Results - last 24 hr 02/03/24 09:30 Hgb 7.5 L Hct 24.3 L ABG Interpretation ABG results: 01/25/24 01/25/24 01/26/24 19:50 20:13 03:33 ABG pH Cancelled 7.36 7.36 ABG pCO2 Cancelled 39 39 ABG pO2 Cancelled 53 L* 77 L D ABG HCO3 Cancelled 22 22 ABG O2 Saturation Cancelled 87 L 96 ABG Base Excess Cancelled -3 -3 Quality Measures Quality Measures VTE prophylaxis Assessment & Plan Assessment Current Active Medications: Generic Name Dose Route Start Last Admin Trade Name Freq PRN Reason Stop Dose Admin Acetaminophen 650 mg 01/24/24 19:40 Acetaminophen 325 Mg Tablet PO 02/23/24 19:39 Q6H PRN Fever >101.5 Atorvastatin Calcium 40 mg 01/27/24 21:00 02/03/24 21:14 Atorvastatin Calcium 20 Mg Tablet PO 02/26/24 20:59 40 mg HS ANAMARIA Administration Bumetanide 2 mg 01/26/24 09:00 02/03/24 21:14 Bumetanide Inj 0.25 Mg/Ml Vial 4 Ml IVP 02/25/24 08:59 2 mg BID ANAMARIA Administration Carvedilol 6.25 mg 01/31/24 17:30 02/03/24 16:55 Carvedilol 3.125 Mg Tablet PO 03/01/24 17:29 6.25 mg BIDWM ANAMARIA Administration Dextrose 25 ml 01/24/24 19:42 Dextrose 50%-Water Inj 50 Ml Syringe IV 02/23/24 19:41 Q15MIN PRN BG 50-70 responsive npo pt Dextrose 50 ml 01/24/24 19:42 Dextrose 50%-Water Inj 50 Ml Syringe IV 02/23/24 19:41 Q15MIN PRN BG <50 OR BG <70 & pt unresponsive Doxycycline Hyclate 100 mg 02/01/24 21:00 02/03/24 21:14 Doxycycline 100 Mg Tablet PO 02/08/24 20:59 100 mg BID ANAMARIA Administration Glucagon 1 mg 01/24/24 19:42 Glucagon Inj 1 Mg Vial IM Q15MIN PRN BG <70, and no IV access Heparin Sodium (Porcine) 5,000 unit 01/24/24 22:00 02/04/24 05:22 Heparin Sod Inj 5000 Unit/Ml Vial SC 02/07/24 21:59 5,000 unit Q8HR ANAMARIA Administration Hydralazine HCl 100 mg 01/28/24 08:15 02/04/24 00:18 Hydralazine Hcl 25 Mg Tablet PO 02/27/24 08:14 100 mg Q8H ANAMARIA Administration Protocol Ceftriaxone Sodium 2 gm/ 50 mls @ 100 mls/hr 02/02/24 09:00 02/03/24 09:00 Sodium Chloride IV 02/09/24 08:59 100 mls/hr QDAY ANAMARIA Administration Insulin Glargine 10 unit 01/25/24 09:00 02/03/24 09:03 Insulin Glargine (Lantus) 5 Unit/0.05 Ml (Per 5 Units) SC 02/24/24 08:59 10 unit QDAY ANAMARIA Administration Insulin Human Regular 0 unit 01/24/24 21:00 02/03/24 20:19 Insulin Hum Regular 1 Unit/0.01 Ml (Per Unit) SC 02/23/24 20:59 Not Given ACHS [facility] Protocol Ipratropium [place] 0.5 mg 01/24/24 21:01 01/28/24 16:33 Ipratropium Rt 0.5 Mg/ 2.5 Ml Nebu INH 02/23/24 21:00 0.5 mg Q6HRRT PRN Administration SHORTNESS OF BREATH OR WHEEZE Protocol Levalbuterol HCl 1.25 mg 01/25/24 01:00 02/04/24 06:20 Levalbuterol Rt 1.25 Mg/0.5 Ml Nebu INH 02/24/24 00:59 1.25 mg Q6HRRT ANAMARIA Administration Ondansetron HCl 4 mg 01/25/24 05:02 01/25/24 05:11 Ondansetron Inj 2 Mg/Ml Inj 2 Ml IV 02/24/24 05:01 4 mg Q6HR PRN Administration NAUSEA OR VOMITING Protocol Plan Patient is a 63-year-old male with a past medical history significant for essential hypertension for more than 20 years, hyperlipidemia does not appear to be statin at home, insulin-dependent diabetes mellitus type 2 [6.2] more than 30 years and CKD stage 3 B. Does not have a primary care doctor. Patient presented to the ED on 01/23 with a chief complaint of SOB and chest discomfort for 1 week. Cardiology was consulted for acute decompensated heart failure. 1. Acute respiratory failure with hypoxia - resolving Secondary to 2. Anasarca - Acute decompensated heart failure with preserved ejection fraction [50-55%] 3. Nephrotic syndrome ruled out 4. B/L pleural effusions On admission patient was SOB at rest associated with chest discomfort for the past week which worsened the day of admission. BNP was elevated at 671 and troponin were negative on admission. Patient's home diuretic hydrochlorothiazide 50 Mg p.o. daily and furosemide 20 Mg p.o. daily. Chest x-ray showed moderate vascular congestion with bilateral pleural effusion and possible superimposed lower lobe consolidation bilateral. EKG showed sinus rhythm rate 95 NYHA stage C class IV Transthoracic echocardiogram completed on 01/26/2024 findings include: Normal LV size and function. Estimated EF 50-55% Normal RV size and function. Trace MR, TR. Left pleural effusion present. Previous echocardiogram from 10/06/2023: Normal LV size and function. Stage I diastolic dysfunction. Estimated EF 60-65%. Initially patient was diuresed with Lasix 40 Mg IV daily but was minimally responsive and was eventually switched to Bumex 2 Mg IV twice daily with better response. Patient also had therapeutic/diagnostic Left thoracentesis done 01/25 for bilateral large pleural effusion. Approximately 600 cc of straw-colored fluid was drained and pleural fluid analysis was significant for transudative picture confirming etiology of CHF. Patient endorses improvement of his SOB and can now ambulate with a walker without SOB while on O2 Patient is refusing labs today Patient still has significant LE but much improved Significant edema due to both acute decompensated heart failure exacerbation and Severe Proteinuria 2.5 g /24hours Patient currently on IV diuresis with Bumex 2 Mg IV twice daily. Fluid balance of negative 1365cc in past 24 hours. Continue diuresis with goal of 1?2 L per day Continue to maintain potassium greater than 4 and magnesium greater than 2 at all times to prevent any arrhythmias. Pleural fluid culture from 01/25 grew Staphylococcus hemolyticus. Plan: ? Strict input output charting ? 2 g sodium restricted diet ? 1500 cc a day fluid restriction ? Aim for diuresis of 1?2 L per day - Continue Coreg to 6.25 mg po BID for better blood pressure control - recommended to increase Coreg to 12.5 mg twice daily and 25 mg twice daily now that patient is being adequately diuresed. ? Continue diuresis with Bumex 2 Mg IV twice daily - Recommend goal-directed medical therapy for heart failure. Patient may not be able to start Entresto due to his CKD but can start spironolactone at a later time. Patient also appears to be on SGLT2 as part of his home medication which can also be restarted on discharge. - Follow up in Cardiology clinic within 1 week of discharge 5. Proteinuria 6. Diabetic Nephropathy Patient still has significant LE and Sacral edema, Nephrology was consulted on 01/28 due to worsening JOSE MARIA on CKD Urinalysis was significant for nephrotic range proteinuria and Renal USS significant for B/L renal cortical scarring without hydronephrosis. Nephrotic syndrome secondary to long standing uncontrolled DM was suspected by Dr. Main, Med Surg Rn who agrees with current management of Bumex 2m IV BID Estimated urine protein 2.5g / 24 hours, out of Nephrotic range. 24 hour urine protein also 2.5 g /24 hours Significant edema due to both acute decompensated heart failure exacerbation and Proteinuria 7. Essential hypertension Unsure of patient's home medication as he cannot recall the names and medication reconciliation not completed. It appears he might have been on amlodipine 10 Mg p.o. daily, furosemide 20 Mg p.o. daily and hydrochlorothiazide 50 Mg p.o. daily and Coreg 6.25 Mg p.o. twice daily. On admission patient's BP 175/85 Patient still continues to be hypertensive, but SBPs between 140's and 150's overnight Patient currently on Coreg 6.25 Mg p.o. twice daily as part of GDMT as his sepsis is now resolving. Uptitrate the beta-moi for now. Continue hydralazine 100 mg p.o. 3 times daily for better blood pressure control as he is also CKD stage IIIb An additional dose of Bumex 2mg IV x1 was recommended on 01/28, however it was not given Metolazone 5mg po x 1 was given for extra diuresis on 01/30 Amlodipine was held as per Nephrology recommendations Ideally patient should be on ARB for better blood pressure control and as part of GDMT, however due to his JOSE MARIA on CKD stage IV on hold for now as per Dr. Main, Nephrology recommendations Plan: ? Amlodipine held as per Nephrology recommendations - Recommend to continue hydralazine 100 mg p.o. 3 times daily for better blood pressure control as he is also JOSE MARIA on CKD stage IV - Continue Coreg 6.25mg po BID for better blood pressure control - Ideally patient should be on ARB for better blood pressure control and as part of GDMT, however due to his JOSE MARIA on CKD stage IV hold for as per Dr. Main, Nephrology recommendations - Recommend excellent control of blood pressure with systolic less than 140 mmHg. 8. Hyperlipidemia Upon chart review patient's last lipid panel from 10/05/2023 showed triglycerides 227, cholesterol 148, LDL 86. Patient does not appear to have been on a statin at home. Plan: ? Recommend to continue high intensity statin, atorvastatin 40 Mg p.o. at bedtime 9. Sepsis secondary to community-acquired pneumonia. On admission patient met SIRS 2/4. RR 24 and WBC 15.4. Chest x-ray showed bilateral lower lobe consolidation as source of infection. Procalcitonin was within normal limits on admission as well as lactic acid level. Patient did not have any fever during visit. Sputum Gram stain done on 01/25 showed 2+ GPC and rare WBCs, sputum culture still pending. Patient currently hypotensive with BP 151/86 and similar trend over the course of admission, no concern for hypotension at this time. Patient was treated with 2 days of azithromycin and Rocephin IV as well as vancomycin IV for 2 days. Patient is currently treated with cefepime. Blood cultures are currently pending with preliminary report no bacterial growth after 48 hours. Plan: ? Continue management as per primary team 10. JOSE MARIA on CKD stage IIIb Patient's baseline CR between 1.9?2. On admission patient CR 2.8. Etiology likely prerenal in the setting of CHF exacerbation. Continue management as per primary team and Nephrology 11. Insulin-dependent diabetes mellitus type 2 [6.2] Patient had diabetes mellitus for the past 30 years and currently on insulin, empagliflozin/metformin and Ozempic at home. Most recent HbA1c 6.2% from this admission. Continue management as per primary team 12. Right foot osteomyelitis s/p transmetatarsal amputation [September 2023] Patient has history of poorly controlled diabetes in the past leading to right foot ulcer and eventual osteomyelitis leading to amputation earlier this year. On this admission foot x-ray showed cortical bone destruction at the end of the first metatarsal as well as distal second metatarsal and proximal phalanx second digit. Negative for gas gangrene or acute osteomyelitis. Patient was evaluated by general surgeon, Dr Serna who assessed patient to have a superficial ulcer and not acute osteomyelitis. Foot ulcer unlikely source of patient's sepsis. ID was consulted who recommended treatment for 6 weeks with IV antibiotics Rocephin and Doxycycline to complete on 02/17/2024 13. Normocytic anemia On admission patient's Hb 8.9, from chart review baseline appears to be between 10?11. DDx: Iron deficiency anemia, anemia of chronic disease, thalassemia, sideroblastic anemia, lead poisoning. Iron panel from this admission showed iron low 18, TIBC low 243 and ferritin within normal limits 132 Etiology possibly multifactorial iron deficiency also anemia of chronic disease secondary to CKD. Recommend IV iron once sepsis resolves and Epogen on this admission for optimization of Hb. Patient's Hb 7.5 from yesterday's labs. Recommended complete anemia workup for the patient to transfuse 1 unit PRBC to keep the hemoglobin between 7 and 8 14. Possible scabies Patient states that multiple residents at his rehab center were recently diagnosed with scabies. Patient also has multiple excoriations on his back and upper extremities. Patient was treated with permethrin x 1 on 01/26/2003/04/2024 and contact precautions were initiated. Contact precautions were removed Continue rest of management as per primary team. We are grateful to be able to participate in Mr. Sandoval' care. Thank you for the consult Plan of care discussed with attending Collections Professional, Dr Christie Dominguez MD PGY 1 Attending Provider Attestation/Addendum I have personally seen and examined the patient separately on the above date of service and discussed the plan of care with the resident. I reviewed the resident Dr. Dominguez consultation progress note and agree with the resident findings and plan in the note above and have also edited the documentation to reflect my findings and plan. Kyle Soriano M.D. Interventional Cardiology
[2024-02-04] MEDS: carVEDILOL 3.125 MG TABLET 6.25 MG PO ×2 (09:30→17:51)
[2024-02-04] MEDS: DOXYCYCLINE 100 MG TABLET PO ×2 (09:32→20:20)
[2024-02-04] MEDS: cefTRIAXone 2 GM in SODIUM CHLORIDE 0.9% (P) 50 ML IV (09:32)
[2024-02-04] MEDS: BUMETANIDE 0.5 MG TABLET 2 MG PO ×2 (09:32→20:19)
[2024-02-04] MEDS: INSULIN GLARGINE (Lantus) 5 UNIT/0.05 ML (PER 5 UNITS) 10 UNIT SC (09:33)
--- NOTE | 2024-02-04 09:45 | PC.SS ---
SS reached out to Lynn at [facility] who stated she is missing multiple documents as requested via [facility]. Lynn also stated she needs clear IV ABX and PO ABX orders. Lynn also questioned whether or not pt has/had scabies. VEL met with Dr. Kim in regards to clarification for IV and PO ABX, changes made and resubmitted to Sus[facility] via [employer]. All requested documentation also submitted via [facility].
--- NOTE | 2024-02-04 10:30 | PC.SS ---
SS received a call from [facility] in regards to pt being treated for Scabies, per Susanne she needs clear documentation on IF the pt HAD scabies. SS contacted Team and requested progress note stating the pts scabies status. Per stated they will put it in shortly.
--- NOTE | 2024-02-04 11:00 | PC.SS ---
SS submitted updated DC summary as requested, SS received a message from [facility] stating they will cancel auth and they are unable to accept pt.
[2024-02-04 11:30] LABS: Basophils % (Auto) 0 % (0-2.5); Eosinophils # (Auto) 0.7 Thou/mm3 (0.0-0.5); Eosinophils % (Auto) 7 % (0-10); Hematocrit 24.7 % (41.0-53.0); Immature Granulocytes % (Auto) 1 % (0-0); Immature Granulocytes Auto 0.12 Thou/mm3 (0.00-0.00); Lymphocytes # (Auto) 2.1 Thou/mm3 (1.0-4.8); Lymphocytes % (Auto) 21 % (10-50); Mean Corpuscular HGB Conc 30.8 g/dl (31.0-37.0); Mean Corpuscular Hemoglobin 25.6 pg (25.0-35.0); Mean Corpuscular Volume 83 fL (80-100); Monocytes # (Auto) 1.1 Thou/mm3 (0.0-0.8); Monocytes % (Auto) 11 % (0-12); Neutrophils # (Auto) 6.1 Thou/mm3 (1.8-7.7); Neutrophils % (Auto) 60 % (37-80); Nucleated Red Blood Cell % 0 /100 WBC (0); Platelet Count 379 Thou/mm3 (140-440); RDW Standard Deviation 44.8 fL (35.1-43.9); Red Blood Count 2.97 Miln/mm3 (4.50-5.90)
[2024-02-04 11:32] LABS: Hemoglobin 7.6 g/dL (13.5-16.0)
--- NOTE | 2024-02-04 11:41 | PC.SS ---
SS reached back out to Natasha at [facility] and inquired if they can still accept pt. She stated to forward updated clinicals and she will see what they can do. Pt is planning on moving to 3rd floor room 370. SS will meet with pt once settled in new room.
[2024-02-04 11:50] LABS: Alanine Aminotransferase 46 U/L (10-49); Albumin, Serum 3.3 gm/dL (3.4-4.8); Alkaline Phosphatase 185 U/L (46-116); Anion Gap 8 (7-16); Aspartate Amino Transferase 41 U/L (0-34); BUN/Creatinine Ratio 28 Ratio (12-20); Bilirubin,Total 0.2 mg/dL (0.3-1.2); Blood Urea Nitrogen 75 mg/dL (9-23); Calcium 8.4 mg/dL (8.3-10.6); Carbon Dioxide 25.4 mMol/L (20.0-31.0); Chloride 102 mMol/L (98-107); Creatinine (Component) 2.7 mg/dL (0.6-1.3); Estimated Creatinine Clearance 28.6 mL/min (>60); Globulin 3.3 gm/dL (2.3-3.5); Glucose 94 mg/dL (74-106); Osmolality,Calculated 292 (275-295); Potassium 4.7 mMol/L (3.4-5.1); Sodium 135 mMol/L (136-145); Total Protein 6.6 gm/dL (5.7-8.2); eGFR 26 See Note
--- NOTE | 2024-02-04 13:33 | PC.SS ---
SS, with RN Manan Durand met with pt bedside to discuss DC planning barrier to SNF utilizing [employer] JOSÉ LUIS Grover. SS explained [facility] declined acceptance this afternoon. SS informed pt [facility] is willing to review case and see if they can accommodate the pts if he is willing to return to their facility. Pt stated he does not want to return to [facility] due to the issues he has had in the past and stated, they do not have nurses there SS reassured the pt they do in fact have nurses and this is the only facility willing to work with him. Pt stated he does not know what to say. SS informed the pt SS will come back to speak to him after Doctor rounds at 2pm to give him some time to think about it.
--- NOTE | 2024-02-04 13:42 | ESPR_ITS ---
Documentation for date of: 02/04/24 Subjective Subjective Interval history: Patient was seen at bedside this morning. No overnight events. Patient still pending SNF placement at this time. No other complaints at this time. Exam Vital Signs Temp Pulse Resp BP Pulse Ox O2 Del Method O2 Flow Rate 97.8 F 71 19 144/77 H 99 Nasal Cannula 4 02/04/24 04:43 02/04/24 12:39 02/04/24 12:39 02/04/24 09:32 02/04/24 12:39 02/04/24 04:43 02/04/24 12:39 FiO2 0 02/03/24 08:00 Narrative Exam General: A/O x3, no acute distress Eyes: PERRL, EOMI. Anicteric, vision grossly intact. Ears: No ear pain, no ear discharge, Hearing grossly intact. Nose: No nasal discharge. Mouth/Throat: Dry mucous membranes, no redness, no lesions. Neck: Short neck, non-tender, no cervical lymphadenopathy. Lungs: Clear ANGEL, No accessory muscle use. Cardio: Normal S1/S2, regular rhythm, no murmurs, no JVD Abdomen: Soft, non-tender, no palpable masses, peristalsis present, no guarding or rebound. Extremities: Symmetrical, no significant deformities, 2+ peripheral edema, non- tender, peripheral pulses present, R first toe amputation covered with clean dressing today. Skin: No rashes, no lesions, warm to touch. Multiple excoriations in entire back and UE. Neuro: No focal neurological deficits. motor and sensory intact Psych: Cooperative, appropriate mood and effect. Objective Labs 02/04/24 10:51 02/04/24 10:51 Labs: Laboratory Results - last 24 hr 02/04/24 10:51 WBC 10.0 RBC 2.97 L Hgb 7.6 L Hct 24.7 L MCV 83 MCH 25.6 MCHC 30.8 L RDW Std Deviation 44.8 H Plt Count 379 D Neut % (Auto) 60 Lymph % (Auto) 21 [place] % (Auto) 11 Eos % (Auto) 7 Baso % (Auto) 0 Neut # (Auto) 6.1 Lymph # (Auto) 2.1 [place]oca # (Auto) 1.1 H Eos # (Auto) 0.7 H Baso # (Auto) 0.0 Immature Gran # (Auto) 0.12 H Absolute Nucleated RBC 0.00 Immature Gran % 1 H Nucleated RBC % 0 Sodium 135 L Potassium 4.7 Chloride 102 Carbon Dioxide 25.4 Anion Gap 8 BUN 75 H Creatinine 2.7 H Estim Creat Clear Calc 28.6 L eGFR 26 L BUN/Creatinine Ratio 28 H Glucose 94 Calculated Osmolality 292 Calcium 8.4 Corrected Calcium 9.0 Total Bilirubin 0.2 L AST 41 H ALT 46 Alkaline Phosphatase 185 H Total Protein 6.6 Albumin 3.3 L Globulin 3.3 Albumin/Globulin Ratio 1.0 L ABG Interpretation ABG results: 01/25/24 01/25/24 01/26/24 19:50 20:13 03:33 ABG pH Cancelled 7.36 7.36 ABG pCO2 Cancelled 39 39 ABG pO2 Cancelled 53 L* 77 L D ABG HCO3 Cancelled 22 22 ABG O2 Saturation Cancelled 87 L 96 ABG Base Excess Cancelled -3 -3 Quality Measures Quality Measures VTE prophylaxis Assessment & Plan Assessment Current Active Medications: Generic Name Dose Route Start Last Admin Trade Name Freq PRN Reason Stop Dose Admin Acetaminophen 650 mg 01/24/24 19:40 Acetaminophen 325 Mg Tablet PO 02/23/24 19:39 Q6H PRN Fever >101.5 Atorvastatin Calcium 40 mg 01/27/24 21:00 02/03/24 21:14 Atorvastatin Calcium 20 Mg Tablet PO 02/26/24 20:59 40 mg HS ANAMARIA Administration Bumetanide 2 mg 02/04/24 09:00 02/04/24 09:32 Bumetanide 0.5 Mg Tablet PO 03/05/24 08:59 2 mg BID ANAMARIA Administration Carvedilol 6.25 mg 01/31/24 17:30 02/04/24 09:30 Carvedilol 3.125 Mg Tablet PO 03/01/24 17:29 6.25 mg BIDWM ANAMARIA Administration Dextrose 25 ml 01/24/24 19:42 Dextrose 50%-Water Inj 50 Ml Syringe IV 02/23/24 19:41 Q15MIN PRN BG 50-70 responsive npo pt Dextrose 50 ml 01/24/24 19:42 Dextrose 50%-Water Inj 50 Ml Syringe IV 02/23/24 19:41 Q15MIN PRN BG <50 OR BG <70 & pt unresponsive Doxycycline Hyclate 100 mg 02/01/24 21:00 02/04/24 09:32 Doxycycline 100 Mg Tablet PO 02/08/24 20:59 100 mg BID ANAMARIA Administration Glucagon 1 mg 01/24/24 19:42 Glucagon Inj 1 Mg Vial IM Q15MIN PRN BG <70, and no IV access Heparin Sodium (Porcine) 5,000 unit 01/24/24 22:00 02/04/24 05:22 Heparin Sod Inj 5000 Unit/Ml Vial SC 02/07/24 21:59 5,000 unit Q8HR ANAMARIA Administration Hydralazine HCl 100 mg 01/28/24 08:15 02/04/24 09:31 Hydralazine Hcl 25 Mg Tablet PO 02/27/24 08:14 100 mg Q8H ANAMARIA Administration Protocol Ceftriaxone Sodium 2 gm/ 50 mls @ 100 mls/hr 02/02/24 09:00 02/04/24 09:32 Sodium Chloride IV 02/09/24 08:59 100 mls/hr QDAY ANAMARIA Administration Insulin Glargine 10 unit 01/25/24 09:00 02/04/24 09:33 Insulin Glargine (Lantus) 5 Unit/0.05 Ml (Per 5 Units) SC 02/24/24 08:59 10 unit QDAY [facility] Administration Insulin Human Regular 0 unit 01/24/24 21:00 02/04/24 07:44 Insulin Hum Regular 1 Unit/0.01 Ml (Per Unit) SC 02/23/24 20:59 Not Given ACHS [facility] Protocol Ipratropium [place] 0.5 mg 01/24/24 21:01 01/28/24 16:33 Ipratropium Rt 0.5 Mg/ 2.5 Ml Nebu INH 02/23/24 21:00 0.5 mg Q6HRRT PRN Administration SHORTNESS OF BREATH OR WHEEZE Protocol Levalbuterol HCl 1.25 mg 01/25/24 01:00 02/04/24 12:34 Levalbuterol Rt 1.25 Mg/0.5 Ml Nebu INH 02/24/24 00:59 1.25 mg Q6HRRT ANAMARIA Administration Ondansetron HCl 4 mg 01/25/24 05:02 01/25/24 05:11 Ondansetron Inj 2 Mg/Ml Inj 2 Ml IV 02/24/24 05:01 4 mg Q6HR PRN Administration NAUSEA OR VOMITING Protocol Plan 63-year-old male with past medical history of HFpEF (EF 50 to 55%) DM2, hyperlipidemia, hypertension, prior osteomyelitis of right first toe s/p amputation was admitted to the hospital on 01/24/2024 for acute hypoxic respiratory failure secondary to acute decompensated heart failure exacerbation and sepsis likely secondary to pneumonia versus osteomyelitis. #Acute decompensated heart failure exacerbation #HFpEF (EF 50 to 55% 01/2024) #Acute hypoxic respiratory failure #Bilateral pleural effusions ?Patient came in with shortness of breath, bilateral lower extremity edema, and orthopnea ?Patient's last echo on 09/2023 showed an ejection fraction of 60 to 65% ?Chest x-ray 01/24/24 showed moderate heart failure ?BNP 671 -Echo showed EF 50-55% 01/2024 -Pleural fluid was transudative using lights criteria, most likely due to HF exacerbation. Plan: ?Continue PO Bumex 2mg twice daily -Continue Carvedilol to 6.25mg BID ?Strict CHAR's ?Fluid restrictions 1500 mL daily -Daily weights ?Keep potassium above 4 and magnesium above 2 -Low sodium diet -Cardiology consulted (Dr. Soriano), appreciate recommendations ?Will continue to monitor #Sepsis secondary to osteomyelitis #Pneumonia #Osteomyelitis ?Initially patient met SIRS criteria 2 out of 4 with leukocytosis and tachypnea ?Chest x-ray showed bilateral pneumonia and pleural effusions -CXR 01/27/2024 showed extensive ANGEL PNA ?Right foot x-ray showed osteomyelitis in the amputated first metatarsal and second metatarsophalangeal joint ?WBC 10 ?Discontinue azithromycin and Rocephin -DC's vancomycin [01/25/2024?01/27/2024], Cefepime [01/24-01/28], DC'd levofloxacin [01/29/2024?02/01/2024] ?PICC line in place Plan: ?Continue PO Doxycycline [02/01/2024-] and IV Rocephin [02/02/2024-] -IV Rocephin and PO Doxycycline upon DC until 02/27/2024 ?Breathing treatments as needed -Wound care ?Referral to physical therapy ?General Surgery consulted (Dr. Serna), recommended no surgery at the moment and to continue antibiotics #JOSE MARIA on CKD ?Patient has some underlying CKD since last year with GFR in the high 30s to 40s -Baseline Cr 1.9 and was 2.8 on admission -Likely prerenal given heart failure and volume overload status ?BUN 75 and creatinine 2.7 today Plan: ?Avoid nephrotoxic agents ?Renally dose medications -Continue Diuresis -Nephrology consulted, appreciated recommendations ? Will continue to monitor #Scabies, resolved ? Patient stated that multiple residents in his rehab center were diagnosed with scabies. ?Patient has multiple excoriations on his entire back and bilateral upper extremities. Plan: ? Permethrin x 1 done on 01/26/2024 ? Contact precautions ?will continue to monitor #Normocytic normochromic anemia ?Patient has a Hx of normocytic anemia with Hgb 10.4 prior to admission - Hgb 7.6 Plan: ?Will transfuse if hemoglobin less than 7 ?Will continue to monitor #Hx of DM2 ?A1c 6.2 on 01/25/2024 Plan: ?ISS ? Accu-Cheks and hypoglycemia protocol ? Will continue to monitor #Hx of hyperlipidemia ?Triglycerides 227, cholesterol 148, LDL 86, HDL 17 on 10/05/2023 Plan: ?Continue atorvastatin 40 mg #Hx of HTN -Continue hydralazine 100mg every 8 hours Disposition: Patient seen in telemetry continuing Antibiotic for Sepsis,pending SNF placement. Diet: Cardiac and carb consistent GI prophylaxis: not indicated DVT prophylaxis: Heparin sc Code: Full Case disclosed with Attending Dr. Huynh and My senior Dr. Barrera PGY2 Henri Perkins PGY1 Attending Provider Attestation/Addendum 43-year-old male with multiple comorbidities including type 2 diabetes mellitus, hypertension, hyperlipidemia and heart failure with preserved EF who was admitted on 01/24/2024 with shortness of breath found to have acute sided heart failure exacerbation with bilateral pleural effusion IV diuretic therapy. In addition, patient also found to have osteomyelitis patient has a PICC line in place and IV antibiotic therapy until February 27, 2024. I reviewed above note and agree with findings and plans. I have also personally examined the patient with medicine team and went over assessment and plan with medical team including healthcare administration internship and resident physician.
--- NOTE | 2024-02-04 14:02 | ESPR_ITS ---
Documentation for date of: 02/04/24 Subjective Subjective Interval history: Mr. Sandoval is a 63 y/o M with PMHx significant for type 2 diabetes mellitus, hyperlipidemia, and hypertension who presents with shortness of breath and chest discomfort. Symptoms started approximately a week ago but acutely worsened overnight to the point where he would get short of breath after just a few steps, prompting him to come to the ED. Endorses orthopnea, PND, and bilateral lower extremity edema. Regarding his chest pain, describes it as substernal, pressure-like, worse with activity, and does not subside with rest. 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 Previously admitted and treated for osteomyelitis of right hallux on 09/2023 and underwent transmetatarsal amputation discharged with 7-day course of doxycycline that patient completed. Patient was hypertensive at 175/85 and hypoxic 86% on room air increased to 98% on 8 L oxy mask in the ED. Chest x-ray showed vascular congestion, bilateral pleural effusions. Patient received DuoNebs, ceftriaxone, and 40 mg Lasix in the ED. Patient admitted for acute hypoxic respiratory failure secondary to acute decompensated heart failure exacerbation and sepsis likely secondary to pneumonia versus osteomyelitis. Patient labs on admission showed BUN 56, creatinine 2.8, eGFR 25 compared to baseline BUN 40, baseline creatinine 1.9, baseline eGFR 39. Patient has been treated for presumptive prerenal JOSE MARIA due to volume overload with Bumex 2 mg IV twice daily, patient has not shown improvement in renal function. Urinalysis shows nephrotic range proteinuria 3+. Nephrology consulted for worsening JOSE MARIA on CKD despite diuretic treatment. Patient seen and examined on the floors. Patient resting in bed, appears mildly distressed and chronically ill. Patient has clear signs of fluid overload: Anasarca, crackles on lung auscultation. Held patient's amlodipine due to risk of increased edema. At time of exam labs showed BUN 61, creatinine 2.5, eGFR 28. Additional urine studies ordered. Renal ultrasound performed, showed moderate bilateral renal parenchymal scar formation, no hydronephrosis. 01/29: Patient seen and examined in telemetry. Patient appears mildly uncomfortable, ill appearing. Patient was anemic at 6.9 hemoglobin, repeat H&H showed hemoglobin 7.4. Patient remains severely fluid overloaded. BUN 61, creatinine 2.7, eGFR 26. Random urine creatinine?68, urine total protein 169, ratio 2.4. PTH 89. 24-hour urine collection pending. 1.9 L in, 1.5 L. 01/31/2024 patient currently seen in telemetry. Family at bedside.24-hour urine showed 2.5 g of protein per day. WBC 10, hemoglobin 7.1, platelets 351. Sodium 138, potassium 4.7, BUN 62, creatinine 2.7, GFR 26, phosphorus 4, ferritin 132, iron saturation 7, alk phos 142, albumin 3.1, B12 342, vitamin D23.5, PTH 89, urinalysis shows proteinuria. Patient had 2.1 L of urine. 02/03/2024 patient currently seen in telemetry. Resting comfortably. His shortness of breath is tad better. Blood pressure 144/79, heart rate 71. Hemoglobin 7.5. Sodium 136, potassium 4.4, BUN 66, creatinine 2.8, glucose 116, magnesium 1.9, LFTs normal, albumin 3. Patient anxious to go home. 02/04/2024: Patient seen in telemetry. Resting comfortably, sitting at edge of bed. Hemoglobin 7.6. Sodium 135, potassium 4.7, bicarb 25.4, BUN 75, creatinine 2.7, eGFR 26. 2.9 L urinary output. Exam Vital Signs Temp Pulse Resp BP Pulse Ox O2 Del Method O2 Flow Rate 97.8 F 71 19 144/77 H 99 Nasal Cannula 4 02/04/24 04:43 02/04/24 12:39 02/04/24 12:39 02/04/24 09:32 02/04/24 12:39 02/04/24 04:43 02/04/24 12:39 FiO2 0 02/03/24 08:00 Narrative Exam PE: Gen: Well-developed and well-nourished. HEENT: NCAT, PERRLA, EOMI, MMM, anicteric conjunctivae. CVS: normal S1 and S2. RRR. No M/R/G. Resp: Lungs clear to auscultation bilaterally. Abd: Mildly tender, distended. MSK: Good ROM in BUE & BLE. Bilateral lower extremity edema with skin changes secondary to chronic PAD. Edema improved. Neuro: CN II-XII grossly intact. Strength 5/5 in BUE & BLE. Alert and oriented x3. Psych: appropriate mood and affect. Objective Labs 02/04/24 10:51 02/04/24 10:51 Labs: Laboratory Results - last 24 hr 02/04/24 10:51 WBC 10.0 RBC 2.97 L Hgb 7.6 L Hct 24.7 L MCV 83 MCH 25.6 MCHC 30.8 L RDW Std Deviation 44.8 H Plt Count 379 D Neut % (Auto) 60 Lymph % (Auto) 21 [place] % (Auto) 11 Eos % (Auto) 7 Baso % (Auto) 0 Neut # (Auto) 6.1 Lymph # (Auto) 2.1 [place] # (Auto) 1.1 H Eos # (Auto) 0.7 H Baso # (Auto) 0.0 Immature Gran # (Auto) 0.12 H Absolute Nucleated RBC 0.00 Immature Gran % 1 H Nucleated RBC % 0 Sodium 135 L Potassium 4.7 Chloride 102 Carbon Dioxide 25.4 Anion Gap 8 BUN 75 H Creatinine 2.7 H Estim Creat Clear Calc 28.6 L eGFR 26 L BUN/Creatinine Ratio 28 H Glucose 94 Calculated Osmolality 292 Calcium 8.4 Corrected Calcium 9.0 Total Bilirubin 0.2 L AST 41 H ALT 46 Alkaline Phosphatase 185 H Total Protein 6.6 Albumin 3.3 L Globulin 3.3 Albumin/Globulin Ratio 1.0 L ABG Interpretation ABG results: 01/25/24 01/25/24 01/26/24 19:50 20:13 03:33 ABG pH Cancelled 7.36 7.36 ABG pCO2 Cancelled 39 39 ABG pO2 Cancelled 53 L* 77 L D ABG HCO3 Cancelled 22 22 ABG O2 Saturation Cancelled 87 L 96 ABG Base Excess Cancelled -3 -3 Quality Measures Quality Measures VTE prophylaxis Assessment & Plan Assessment Current Active Medications: Generic Name Dose Route Start Last Admin Trade Name Freq PRN Reason Stop Dose Admin Acetaminophen 650 mg 01/24/24 19:40 Acetaminophen 325 Mg Tablet PO 02/23/24 19:39 Q6H PRN Fever >101.5 Atorvastatin Calcium 40 mg 01/27/24 21:00 02/03/24 21:14 Atorvastatin Calcium 20 Mg Tablet PO 02/26/24 20:59 40 mg HS ANAMARIA Administration Bumetanide 2 mg 02/04/24 09:00 02/04/24 09:32 Bumetanide 0.5 Mg Tablet PO 03/05/24 08:59 2 mg BID ANAMARIA Administration Carvedilol 6.25 mg 01/31/24 17:30 02/04/24 09:30 Carvedilol 3.125 Mg Tablet PO 03/01/24 17:29 6.25 mg BIDWM ANAMARIA Administration Dextrose 25 ml 01/24/24 19:42 Dextrose 50%-Water Inj 50 Ml Syringe IV 02/23/24 19:41 Q15MIN PRN BG 50-70 responsive npo pt Dextrose 50 ml 01/24/24 19:42 Dextrose 50%-Water Inj 50 Ml Syringe IV 02/23/24 19:41 Q15MIN PRN BG <50 OR BG <70 & pt unresponsive Doxycycline Hyclate 100 mg 02/01/24 21:00 02/04/24 09:32 Doxycycline 100 Mg Tablet PO 02/08/24 20:59 100 mg BID ANAMARIA Administration Glucagon 1 mg 01/24/24 19:42 Glucagon Inj 1 Mg Vial IM Q15MIN PRN BG <70, and no IV access Heparin Sodium (Porcine) 5,000 unit 01/24/24 22:00 02/04/24 05:22 Heparin Sod Inj 5000 Unit/Ml Vial SC 02/07/24 21:59 5,000 unit Q8HR ANAMARIA Administration Hydralazine HCl 100 mg 01/28/24 08:15 02/04/24 09:31 Hydralazine Hcl 25 Mg Tablet PO 02/27/24 08:14 100 mg Q8H ANAMARIA Administration Protocol Ceftriaxone Sodium 2 gm/ 50 mls @ 100 mls/hr 02/02/24 09:00 02/04/24 09:32 Sodium Chloride IV 02/09/24 08:59 100 mls/hr QDAY ANAMARIA Administration Insulin Glargine 10 unit 01/25/24 09:00 02/04/24 09:33 Insulin Glargine (Lantus) 5 Unit/0.05 Ml (Per 5 Units) SC 02/24/24 08:59 10 unit QDAY ANAMARIA Administration Insulin Human Regular 0 unit 01/24/24 21:00 02/04/24 07:44 Insulin Hum Regular 1 Unit/0.01 Ml (Per Unit) SC 02/23/24 20:59 Not Given ACHS [facility] Protocol Ipratropium [place] 0.5 mg 01/24/24 21:01 01/28/24 16:33 Ipratropium Rt 0.5 Mg/ 2.5 Ml Nebu INH 02/23/24 21:00 0.5 mg Q6HRRT PRN Administration SHORTNESS OF BREATH OR WHEEZE Protocol Levalbuterol HCl 1.25 mg 01/25/24 01:00 02/04/24 12:34 Levalbuterol Rt 1.25 Mg/0.5 Ml Nebu INH 02/24/24 00:59 1.25 mg Q6HRRT ANAMARIA Administration Ondansetron HCl 4 mg 01/25/24 05:02 01/25/24 05:11 Ondansetron Inj 2 Mg/Ml Inj 2 Ml IV 02/24/24 05:01 4 mg Q6HR PRN Administration NAUSEA OR VOMITING Protocol Plan 63 y/o M with PMHx significant for HFpEF (EF 50 to 55%) DM2, hyperlipidemia, hypertension, prior osteomyelitis of right first toe s/p amputation was admitted to the hospital on 01/24/2024 for acute hypoxic respiratory failure secondary to acute decompensated heart failure exacerbation and sepsis likely secondary to pneumonia versus osteomyelitis. #JOSE MARIA on CKD Patient seems to have combination of cardiorenal syndrome and nonnephrotic range proteinuria as a cause for significant anasarca. JOSE MARIA secondary to prerenal azotemia from CHF decompensation. Underlying chronic kidney disease from diabetic nephropathy. 24-hour urine showed 2.5 g of proteinuria. Had a long conversation with patient regarding diuretic dependent/resistant state and need for sequential ultrafiltration if no improvement in edema. Patient agreed. Currently his creatinine stable at 2.8. No need for emergency dialysis. He will be left with elevated BUN and creatinine to maintain a euvolemic state. Renal ultrasound showed moderate bilateral renal parenchymal scar formation, no hydronephrosis. Patient maintains good urinary output. Edema slowly improving. Plan: -Avoid nephrotoxic agents -Renally dose medications -Hold amlodipine -Strict I's and O's -Continue Diuresis-currently on 2 mg IV Bumex twice daily -Will continue to monitor #Acute decompensated heart failure exacerbation. #HFpEF (EF 50 to 55% 01/2024). #Acute hypoxic respiratory failure. On oxygen #Bilateral pleural effusions. #Sepsis likely secondary to pneumonia versus osteomyelitis-resolved #Pneumonia #Normocytic normochromic anemia #Hx of DM2 #Hx of hyperlipidemia #Hx of HTN Management as per primary team. Thank you for allow me to participate in the care of this patient. Plan of care discussed with attending Dr. Main. Les Godwin MD PGY-1 Attending Provider Attestation/Addendum Patient seen and examined with resident physician Dr. Godwin. Note reviewed, agree with findings and recommendations. Patient comfortable. Still with significant edema. Will be left with CKD stage IV to maintain euvolemic state. Patient has cardiorenal syndrome. Will follow him in outpatient setting.
--- NOTE | 2024-02-04 14:21 | PC.CM ---
Addendum entered by Wellington Gallardo RN 02/04/24 16:32: HH referral sent to [facility] and [facility] on [address]. Awaiting responses. Addendum entered by Wellington Gallardo RN 02/04/24 16:32: spoke to Jillian at [facility] HH and informed pt doesn't have PCP and we are planning to est pt with [facility]. She stated when pt gets dc to make sure pt follow the PCP the next day. I informed her that SS will be working on getting pt est with [facility]. She stated to send the referral and she will request for urgent auth approval. Original Note: spoke to Fransisca CROWDER inquiring about HH for IV abx. Pt is not est. with a PCP. Plan is setup appt with [facility] the next day after dc. is going to inform team to place HH orders. I informed her that pt has managed plan, only [facility] will accept this kind of insurance the one pt has. It would take 3-4 business days for [facility] to get insurance auth, it's already . It might not happen till Thursday.
--- NOTE | 2024-02-04 14:33 | PC.SS ---
During rounding Team A brought up possibility for HH for pt being he is refusing [facility] SNF, and there are no other accepting facilities, SS spoke to [place]lan [place] RN due to pt not having a PCP if this would be obtainable. Ruslan stated in the past we have had pts follow up with [facility] the day following DC for the HH agency to take the pt, we must try to see if we have an accepting agency. SS spoke to Dr. Schuler and requested fro HH orders to be placed for [place] RN to be able to work on it due to weekend approaching and pt requiring auth for HH. Pt will most likely stay over weekend due to auth. SS went to meet with pt at bedside utilizing [employer] SS explained to pt that he will need to follow up with the [facility] following DC from the hospital for HH agency to accept him, pt stated this is ok and agrees. SS also inquired if he has anyone that would be willing to help him on off days from HH with administrating the IV ABX, pt stated yes his friend Colton Thapa that he lives with. SS explained HH can sometimes be a lengthy process due to requiring auth but that we would communicate with him during the process. Pt does not have a preference for HH. SS updated RN, Pam.
--- NOTE | 2024-02-04 16:54 | PC.PT ---
Pt is IND on all functional mobility including transfers and AMB using [facility], will d/c PT services, RN notified.
[2024-02-04] MEDS: INSULIN HUM REGULAR 1 UNIT/0.01 ML (PER UNIT) SC ×2 (17:51→20:18)
[2024-02-04] MEDS: IPRATROPIUM RT 0.5 MG/ 2.5 ML NEBU INH (19:44)
[2024-02-04] MEDS: ATORVASTATIN CALCIUM 20 MG TABLET 40 MG PO (20:20)
[2024-02-05] VITALS (19 sets, daily range): BP systolic 135–158; BP diastolic 71–87; PULSE 68–79; RESP 16–94; TEMP 36.7–37.2; O2SAT 93–100; BMI 31.0
[2024-02-05] MEDS: hydrALAZINE HCL 25 MG TABLET 100 MG PO ×4 (00:03→23:56)
[2024-02-05] MEDS: IPRATROPIUM RT 0.5 MG/ 2.5 ML NEBU INH (01:08)
[2024-02-05] MEDS: LEVALBUTEROL RT 1.25 MG/0.5 ML NEBU INH ×2 (01:08→06:06)
[2024-02-05] MEDS: HEPARIN SOD INJ 5000 UNIT/ML VIAL SC ×3 (05:23→21:31)
[2024-02-05] MEDS: INSULIN GLARGINE (Lantus) 5 UNIT/0.05 ML (PER 5 UNITS) 10 UNIT SC (08:01)
--- NOTE | 2024-02-05 08:32 | PD.RESPRO ---
Documentation for date of: 02/05/24 Subjective Subjective Interval history: Patient is Maltese-speaking only and interaction facilitated by healthcare ribbon blocker Patient was seen and examined at bedside this AM. No acute exents overnight. Patient tolerating diet, adequate urine output and mentation is at baseline. Patient endorses improvement of his SOB and can now ambulate without a walker on RA Patient still has significant LE but much improved Significant edema due to both acute decompensated heart failure exacerbation and Severe Proteinuria 2.5 g /24hours Patient currently on diuresis with Bumex 2 Mg po twice daily. Fluid balance of negative 140cc in past 24 hours. Continue diuresis with goal of 1?2 L per day Continue to maintain potassium greater than 4 and magnesium greater than 2 at all times to prevent any arrhythmias. Patient still continues to be hypertensive, but SBPs between 140's and 150's overnight Patient currently on Coreg 6.25 Mg p.o. twice daily as part of GDMT as his sepsis is now resolving. Uptitrate the beta-moi for now. Continue hydralazine 100 mg p.o. 3 times daily for better blood pressure control as he is also CKD stage IIIb An additional dose of Bumex 2mg IV x1 was recommended on 01/28, however it was not given Metolazone 5mg po x 1 was given for extra diuresis on 01/30 Amlodipine was held as per Nephrology recommendations Ideally patient should be on ARB for better blood pressure control and as part of GDMT, however due to his JOSE MARIA on CKD stage IV on hold for now as per Dr. Main, Nephrology recommendations Patient's Hb 7.5 from yesterday's labs. Recommended complete anemia workup for the patient to transfuse 1 unit PRBC to keep the hemoglobin between 7 and 8 Exam Vital Signs Temp Pulse Resp BP Pulse Ox O2 Del Method O2 Flow Rate 98.0 F 79 16 158/87 H 97 Room Air 4 02/05/24 07:58 02/05/24 07:58 02/05/24 07:58 02/05/24 07:58 02/05/24 07:58 02/05/24 07:58 02/04/24 12:39 FiO2 0 02/05/24 04:00 Narrative Exam Constitutional Alert, oriented x 3 and Comfortable. On 2 L O2 via NC. Can speak full sentences HEENT Vision grossly intact. Patent nares. Trachea midline Respiratory Chest normal on inspection and clear to auscultation. Bandage on left and right back from thoracentesis noted Cardiovascular S1 and S2 audible, RRR. No murmurs carotid bruit. No gross JVD. Abdominal Soft,obese and non tender to palpation in all quadrants. BS + Genitourinary No bladder tenderness, no flank pain. Normal to palpation. No scrotal edema Musculoskeletal Extremities tone within normal limits. 2+ LE edema up to knees B/L. much improved. Bandage noted on R foot Neurological CN II - XII grossly intact. Extremity motor and sensation grossly intact. Skin Warm, dry and intact. No apparent lesions. Psychiatric Patient has good affect, is cooperative Objective Labs 02/05/24 09:55 02/05/24 09:55 Labs: Laboratory Results - last 24 hr 02/04/24 10:51 WBC 10.0 RBC 2.97 L Hgb 7.6 L Hct 24.7 L MCV 83 MCH 25.6 MCHC 30.8 L RDW Std Deviation 44.8 H Plt Count 379 D Neut % (Auto) 60 Lymph % (Auto) 21 [place] % (Auto) 11 Eos % (Auto) 7 Baso % (Auto) 0 Neut # (Auto) 6.1 Lymph # (Auto) 2.1 [place] # (Auto) 1.1 H Eos # (Auto) 0.7 H Baso # (Auto) 0.0 Immature Gran # (Auto) 0.12 H Absolute Nucleated RBC 0.00 Immature Gran % 1 H Nucleated RBC % 0 Sodium 135 L Potassium 4.7 Chloride 102 Carbon Dioxide 25.4 Anion Gap 8 BUN 75 H Creatinine 2.7 H Estim Creat Clear Calc 28.6 L eGFR 26 L BUN/Creatinine Ratio 28 H Glucose 94 Calculated Osmolality 292 Calcium 8.4 Corrected Calcium 9.0 Total Bilirubin 0.2 L AST 41 H ALT 46 Alkaline Phosphatase 185 H Total Protein 6.6 Albumin 3.3 L Globulin 3.3 Albumin/Globulin Ratio 1.0 L ABG Interpretation ABG results: 01/25/24 01/25/24 01/26/24 19:50 20:13 03:33 ABG pH Cancelled 7.36 7.36 ABG pCO2 Cancelled 39 39 ABG pO2 Cancelled 53 L* 77 L D ABG HCO3 Cancelled 22 22 ABG O2 Saturation Cancelled 87 L 96 ABG Base Excess Cancelled -3 -3 Quality Measures Quality Measures VTE prophylaxis Assessment & Plan Assessment Current Active Medications: Generic Name Dose Route Start Last Admin Trade Name Frefidencio PRN Reason Stop Dose Admin Acetaminophen 650 mg 01/24/24 19:40 Acetaminophen 325 Mg Tablet PO 02/23/24 19:39 Q6H PRN Fever >101.5 Atorvastatin Calcium 40 mg 01/27/24 21:00 02/04/24 20:20 Atorvastatin Calcium 20 Mg Tablet PO 02/26/24 20:59 40 mg HS ANAMARIA Administration Bumetanide 2 mg 02/04/24 09:00 02/04/24 20:19 Bumetanide 0.5 Mg Tablet PO 03/05/24 08:59 2 mg BID ANAMARIA Administration Carvedilol 6.25 mg 01/31/24 17:30 02/04/24 17:51 Carvedilol 3.125 Mg Tablet PO 03/01/24 17:29 6.25 mg BIDWM ANAMARIA Administration Dextrose 25 ml 01/24/24 19:42 Dextrose 50%-Water Inj 50 Ml Syringe IV 02/23/24 19:41 Q15MIN PRN BG 50-70 responsive npo pt Dextrose 50 ml 01/24/24 19:42 Dextrose 50%-Water Inj 50 Ml Syringe IV 02/23/24 19:41 Q15MIN PRN BG <50 OR BG <70 & pt unresponsive Doxycycline Hyclate 100 mg 02/01/24 21:00 02/04/24 20:20 Doxycycline 100 Mg Tablet PO 02/08/24 20:59 100 mg BID ANAMARIA Administration Glucagon 1 mg 01/24/24 19:42 Glucagon Inj 1 Mg Vial IM Q15MIN PRN BG <70, and no IV access Heparin Sodium (Porcine) 5,000 unit 01/24/24 22:00 02/05/24 05:23 Heparin Sod Inj 5000 Unit/Ml Vial SC 02/07/24 21:59 5,000 unit Q8HR ANAMARIA Administration Hydralazine HCl 100 mg 01/28/24 08:15 02/05/24 00:03 Hydralazine Hcl 25 Mg Tablet PO 02/27/24 08:14 100 mg Q8H ANAMARIA Administration Protocol Ceftriaxone Sodium 2 gm/ 50 mls @ 100 mls/hr 02/02/24 09:00 02/04/24 09:32 Sodium Chloride IV 02/09/24 08:59 100 mls/hr QDAY ANAMARIA Administration Insulin Glargine 10 unit 01/25/24 09:00 02/05/24 08:01 Insulin Glargine (Lantus) 5 Unit/0.05 Ml (Per 5 Units) SC 02/24/24 08:59 10 unit QDAY ANAMARIA Administration Insulin Human Regular 0 unit 01/24/24 21:00 02/05/24 07:32 Insulin Hum Regular 1 Unit/0.01 Ml (Per Unit) SC 02/23/24 20:59 Not Given ACHS ANAMARIA Protocol Ipratropium [place] 0.5 mg 01/24/24 21:01 02/05/24 01:08 Ipratropium Rt 0.5 Mg/ 2.5 Ml Nebu INH 02/23/24 21:00 0.5 mg Q6HRRT PRN Administration SHORTNESS OF BREATH OR WHEEZE Protocol Levalbuterol HCl 1.25 mg 01/25/24 01:00 02/05/24 06:06 Levalbuterol Rt 1.25 Mg/0.5 Ml Nebu INH 02/24/24 00:59 1.25 mg Q6HRRT ANAMARIA Administration Ondansetron HCl 4 mg 01/25/24 05:02 01/25/24 05:11 Ondansetron Inj 2 Mg/Ml Inj 2 Ml IV 02/24/24 05:01 4 mg Q6HR PRN Administration NAUSEA OR VOMITING Protocol Plan Patient is a 63-year-old male with a past medical history significant for essential hypertension for more than 20 years, hyperlipidemia does not appear to be statin at home, insulin-dependent diabetes mellitus type 2 [6.2] more than 30 years and CKD stage 3 B. Does not have a primary care doctor. Patient presented to the ED on 01/23 with a chief complaint of SOB and chest discomfort for 1 week. Cardiology was consulted for acute decompensated heart failure. 1. Acute respiratory failure with hypoxia - resolved Secondary to 2. Anasarca - Acute decompensated heart failure with preserved ejection fraction [50-55%] 3. Nephrotic syndrome ruled out 4. B/L pleural effusions On admission patient was SOB at rest associated with chest discomfort for the past week which worsened the day of admission. BNP was elevated at 671 and troponin were negative on admission. Patient's home diuretic hydrochlorothiazide 50 Mg p.o. daily and furosemide 20 Mg p.o. daily. Chest x-ray showed moderate vascular congestion with bilateral pleural effusion and possible superimposed lower lobe consolidation bilateral. EKG showed sinus rhythm rate 95 NYHA stage C class IV Transthoracic echocardiogram completed on 01/26/2024 findings include: Normal LV size and function. Estimated EF 50-55% Normal RV size and function. Trace MR, TR. Left pleural effusion present. Previous echocardiogram from 10/06/2023: Normal LV size and function. Stage I diastolic dysfunction. Estimated EF 60-65%. Initially patient was diuresed with Lasix 40 Mg IV daily but was minimally responsive and was eventually switched to Bumex 2 Mg IV twice daily with better response. Patient also had therapeutic/diagnostic Left thoracentesis done 01/25 for bilateral large pleural effusion. Approximately 600 cc of straw-colored fluid was drained and pleural fluid analysis was significant for transudative picture confirming etiology of CHF. Patient endorses improvement of his SOB and can now ambulate without a walker on RA Patient still has significant LE but much improved Significant edema due to both acute decompensated heart failure exacerbation and Severe Proteinuria 2.5 g /24hours Patient currently on diuresis with Bumex 2 Mg po twice daily. Fluid balance of negative 140cc in past 24 hours. Continue diuresis with goal of 1?2 L per day Continue to maintain potassium greater than 4 and magnesium greater than 2 at all times to prevent any arrhythmias. Pleural fluid culture from 01/25 grew Staphylococcus hemolyticus. Plan: ? Strict input output charting ? 2 g sodium restricted diet ? 1500 cc a day fluid restriction ? Aim for diuresis of 1?2 L per day - Recommended to increase Coreg to 12.5 mg twice daily and eventually 25mg po BID now that patient is being adequately diuresed. ? Continue diuresis with Bumex 2 Mg po twice daily upon discharge - Recommend goal-directed medical therapy for heart failure. Patient may not be able to start Entresto or sprinolactone due to his CKD. Patient also appears to be on SGLT2 as part of his home medication which can also be restarted on discharge. - Follow up in Cardiology clinic within 1 week of discharge 5. Proteinuria 6. Diabetic Nephropathy Patient still has significant LE and Sacral edema, Nephrology was consulted on 01/28 due to worsening JOSE MARIA on CKD Urinalysis was significant for nephrotic range proteinuria and Renal USS significant for B/L renal cortical scarring without hydronephrosis. Nephrotic syndrome secondary to long standing uncontrolled DM was suspected by Dr. Main, Supervisor [employer] who agrees with current management of Bumex 2m IV BID Estimated urine protein 2.5g / 24 hours, out of Nephrotic range. 24 hour urine protein also 2.5 g /24 hours Significant edema due to both acute decompensated heart failure exacerbation and Proteinuria 7. Essential hypertension Unsure of patient's home medication as he cannot recall the names and medication reconciliation not completed. It appears he might have been on amlodipine 10 Mg p.o. daily, furosemide 20 Mg p.o. daily and hydrochlorothiazide 50 Mg p.o. daily and Coreg 6.25 Mg p.o. twice daily. On admission patient's BP 175/85 Patient still continues to be hypertensive, but SBPs between 140's and 150's overnight Patient currently on Coreg 6.25 Mg p.o. twice daily as part of GDMT as his sepsis is now resolving. Uptitrate the beta-moi for now. Continue hydralazine 100 mg p.o. 3 times daily for better blood pressure control as he is also CKD stage IIIb An additional dose of Bumex 2mg IV x1 was recommended on 01/28, however it was not given Metolazone 5mg po x 1 was given for extra diuresis on 01/30 Amlodipine was held as per Nephrology recommendations Ideally patient should be on ARB for better blood pressure control and as part of GDMT, however due to his JOSE MARIA on CKD stage IV on hold for now as per Dr. Main, Nephrology recommendations Plan: ? Amlodipine held as per Nephrology recommendations - Recommend to continue hydralazine 100 mg p.o. 3 times daily for better blood pressure control as he is also JOSE MARIA on CKD stage IV - Ideally patient should be on ARB for better blood pressure control and as part of GDMT, however due to his JOSE MARIA on CKD stage IV hold for as per Dr. Main, Nephrology recommendations - Recommend excellent control of blood pressure with systolic less than 140 mmHg. 8. Hyperlipidemia Upon chart review patient's last lipid panel from 10/05/2023 showed triglycerides 227, cholesterol 148, LDL 86. Patient does not appear to have been on a statin at home. Plan: ? Recommend to continue high intensity statin, atorvastatin 40 Mg p.o. at bedtime 9. Sepsis secondary to community-acquired pneumonia. On admission patient met SIRS 2/4. RR 24 and WBC 15.4. Chest x-ray showed bilateral lower lobe consolidation as source of infection. Procalcitonin was within normal limits on admission as well as lactic acid level. Patient did not have any fever during visit. Sputum Gram stain done on 01/25 showed 2+ GPC and rare WBCs, sputum culture still pending. Patient currently hypotensive with BP 151/86 and similar trend over the course of admission, no concern for hypotension at this time. Patient was treated with 2 days of azithromycin and Rocephin IV as well as vancomycin IV for 2 days. Patient is currently treated with cefepime. Blood cultures are currently pending with preliminary report no bacterial growth after 48 hours. Plan: ? Continue management as per primary team 10. JOSE MARIA on CKD stage IIIb Patient's baseline CR between 1.9?2. On admission patient CR 2.8. Etiology likely prerenal in the setting of CHF exacerbation. Continue management as per primary team and Nephrology 11. Insulin-dependent diabetes mellitus type 2 [6.2] Patient had diabetes mellitus for the past 30 years and currently on insulin, empagliflozin/metformin and Ozempic at home. Most recent HbA1c 6.2% from this admission. Continue management as per primary team 12. Right foot osteomyelitis s/p transmetatarsal amputation [September 2023] Patient has history of poorly controlled diabetes in the past leading to right foot ulcer and eventual osteomyelitis leading to amputation earlier this year. On this admission foot x-ray showed cortical bone destruction at the end of the first metatarsal as well as distal second metatarsal and proximal phalanx second digit. Negative for gas gangrene or acute osteomyelitis. Patient was evaluated by general surgeon, Dr Serna who assessed patient to have a superficial ulcer and not acute osteomyelitis. Foot ulcer unlikely source of patient's sepsis. ID was consulted who recommended treatment for 6 weeks with IV antibiotics Rocephin and Doxycycline to complete on 02/17/2024 13. Normocytic anemia On admission patient's Hb 8.9, from chart review baseline appears to be between 10?11. DDx: Iron deficiency anemia, anemia of chronic disease, thalassemia, sideroblastic anemia, lead poisoning. Iron panel from this admission showed iron low 18, TIBC low 243 and ferritin within normal limits 132 Etiology possibly multifactorial iron deficiency also anemia of chronic disease secondary to CKD. Recommend IV iron once sepsis resolves and Epogen on this admission for optimization of Hb. Patient's Hb 7.5 from yesterday's labs. Recommended complete anemia workup for the patient to transfuse 1 unit PRBC to keep the hemoglobin between 7 and 8 14. Possible scabies Patient states that multiple residents at his rehab center were recently diagnosed with scabies. Patient also has multiple excoriations on his back and upper extremities. Patient was treated with permethrin x 1 on 01/26/2003/04/2024 and contact precautions were initiated. Contact precautions were removed Continue rest of management as per primary team. We are grateful to be able to participate in Mr. Sandoval' care. Thank you for the consult Plan of care discussed with attending Gimp Tacker, Dr Christie Dominguez MD PGY 1 Attending Provider Attestation/Addendum I reviewed the resident Dr. Dominguez consultation progress note and agree with the resident findings and plan in the note above and have also edited the documentation to reflect my findings and plan. bun upto 86 and creatinine stable at 2.7 ckd stage 4 stop iv diuresis for now start bumex 2 mg po daily at discharge diuretic holiday for next 2 days bp still 140 - 150 increase coreg to 25 mg bid hb still 7.1 - multifactorial iron def and ckd give iv iron and erythropoietin along with b12 and folate goal hb 8-9 Kyle Soriano M.D. Interventional Cardiology
[2024-02-05] MEDS: carVEDILOL 3.125 MG TABLET 6.25 MG PO ×2 (09:05→12:00)
[2024-02-05] MEDS: BUMETANIDE 0.5 MG TABLET 2 MG PO (09:07)
[2024-02-05] MEDS: DOXYCYCLINE 100 MG TABLET PO ×2 (09:08→21:29)
[2024-02-05] MEDS: cefTRIAXone 2 GM in SODIUM CHLORIDE 0.9% (P) 50 ML IV (09:08)
[2024-02-05 10:31] LABS: Basophils % (Auto) 0 % (0-2.5); Eosinophils # (Auto) 0.6 Thou/mm3 (0.0-0.5); Eosinophils % (Auto) 6 % (0-10); Hematocrit 22.6 % (41.0-53.0); Immature Granulocytes % (Auto) 1 % (0-0); Immature Granulocytes Auto 0.11 Thou/mm3 (0.00-0.00); Lymphocytes % (Auto) 20 % (10-50); Mean Corpuscular HGB Conc 31.4 g/dl (31.0-37.0); Mean Corpuscular Hemoglobin 25.9 pg (25.0-35.0); Mean Corpuscular Volume 83 fL (80-100); Monocytes % (Auto) 10 % (0-12); Neutrophils # (Auto) 6.2 Thou/mm3 (1.8-7.7); Neutrophils % (Auto) 62 % (37-80); Nucleated Red Blood Cell % 0 /100 WBC (0); Platelet Count 340 Thou/mm3 (140-440); Red Blood Count 2.74 Miln/mm3 (4.50-5.90)
[2024-02-05 10:53] LABS: Hemoglobin 7.1 g/dL (13.5-16.0)
--- NOTE | 2024-02-05 10:58 | PC.SS ---
SS contacted Jaquelin from [facility]. SS sent over Patient's clinicals, Jaquelin informed SS that they are able to accept patient and will be submitting auth. SS met with patient and he is agreeable to discharge to [facility] when auth is obtained.
[2024-02-05] MEDS: INSULIN HUM REGULAR 1 UNIT/0.01 ML (PER UNIT) SC ×2 (11:36→21:28)
[2024-02-05 11:59] LABS: Alanine Aminotransferase 54 U/L (10-49); Albumin, Serum 3.2 gm/dL (3.4-4.8); Albumin/Globulin Ratio 1.1 (1.2-2.2); Alkaline Phosphatase 176 U/L (46-116); Anion Gap 8 (7-16); Aspartate Amino Transferase 42 U/L (0-34); BUN/Creatinine Ratio 32 Ratio (12-20); Blood Urea Nitrogen 86 mg/dL (9-23); Calcium 8.4 mg/dL (8.3-10.6); Carbon Dioxide 24.8 mMol/L (20.0-31.0); Chloride 102 mMol/L (98-107); Creatinine (Component) 2.7 mg/dL (0.6-1.3); Estimated Creatinine Clearance 29.1 mL/min (>60); Glucose 155 mg/dL (74-106); Magnesium 2.1 mg/dL (1.6-2.6); Osmolality,Calculated 299 (275-295); Potassium 4.8 mMol/L (3.4-5.1); Sodium 135 mMol/L (136-145); Total Protein 6.2 gm/dL (5.7-8.2); eGFR 26 See Note
--- NOTE | 2024-02-05 12:04 | ESPR_ITS ---
<Statement entered by Jc Barrera MD - 02/05/24 15:23> Senior Resident Attestation: I supervised/discussed management plan with internet project manager physician Dr. Kim, and was involved in the care of this patient. I personally saw and examined the patient and discussed the assessment and plan with the entire medicine team, including my attending. I agree with the assessment and plan as documented. Patient's care was discussed with attending physician, Dr. Rubio. Jc Barrera MD PGY-2. Documentation for date of: 02/05/24 Subjective Subjective Interval history: Patient seen at bedside this morning. No overnight events. Patient is saturating well on room air and no complaints at this time. Patient still pending SNF placement as of this time and there is a possible placement and we are just awaiting authorization. No other complaints at this time. Exam Vital Signs Temp Pulse Resp BP Pulse Ox O2 Del Method O2 Flow Rate 98.2 F 72 18 147/80 H 95 Room Air 4 02/05/24 11:51 02/05/24 12:00 02/05/24 11:51 02/05/24 12:00 02/05/24 11:51 02/05/24 07:58 02/04/24 12:39 FiO2 0 02/05/24 04:00 Narrative Exam General: A/O x3, no acute distress Eyes: PERRL, EOMI. Anicteric, vision grossly intact. Ears: No ear pain, no ear discharge, Hearing grossly intact. Nose: No nasal discharge. Mouth/Throat: Dry mucous membranes, no redness, no lesions. Neck: Short neck, non-tender, no cervical lymphadenopathy. Lungs: Clear ANGEL, No accessory muscle use. Cardio: Normal S1/S2, regular rhythm, no murmurs, no JVD Abdomen: Soft, non-tender, no palpable masses, peristalsis present, no guarding or rebound. Extremities: Symmetrical, no significant deformities, 2+ peripheral edema, non- tender, peripheral pulses present, R first toe amputation covered with clean dressing today. Skin: No rashes, no lesions, warm to touch. multiple hyperpigmented lesions in back. Neuro: No focal neurological deficits. motor and sensory intact Psych: Cooperative, appropriate mood and effect. Objective Labs 02/06/24 09:23 02/06/24 09:23 Labs: Laboratory Results - last 24 hr 02/02/24 02/05/24 05:54 09:55 WBC 10.0 RBC 2.74 L Hgb 7.1 L Hct 22.6 L MCV 83 MCH 25.9 MCHC 31.4 RDW Std Deviation 44.0 H Plt Count 340 D Neut % (Auto) 62 Lymph % (Auto) 20 [place] % (Auto) 10 Eos % (Auto) 6 Baso % (Auto) 0 Neut # (Auto) 6.2 Lymph # (Auto) 2.0 [place] # (Auto) 1.0 H Eos # (Auto) 0.6 H Baso # (Auto) 0.0 Immature Gran # (Auto) 0.11 H Absolute Nucleated RBC 0.00 Immature Gran % 1 H Nucleated RBC % 0 TB Test (QFT) See Sep Rpt ABG Interpretation ABG results: 01/25/24 01/25/24 01/26/24 19:50 20:13 03:33 ABG pH Cancelled 7.36 7.36 ABG pCO2 Cancelled 39 39 ABG pO2 Cancelled 53 L* 77 L D ABG HCO3 Cancelled 22 22 ABG O2 Saturation Cancelled 87 L 96 ABG Base Excess Cancelled -3 -3 Quality Measures Quality Measures VTE prophylaxis Assessment & Plan Assessment Current Active Medications: Generic Name Dose Route Start Last Admin Trade Name Yoan PRN Reason Stop Dose Admin Acetaminophen 650 mg 01/24/24 19:40 Acetaminophen 325 Mg Tablet PO 02/23/24 19:39 Q6H PRN Fever >101.5 Atorvastatin Calcium 40 mg 01/27/24 21:00 02/04/24 20:20 Atorvastatin Calcium 20 Mg Tablet PO 02/26/24 20:59 40 mg HS ANAMARIA Administration Bumetanide 2 mg 02/05/24 21:00 Bumetanide Inj 0.25 Mg/Ml Vial 4 Ml IVP 03/06/24 20:59 BID ANAMARIA Carvedilol 12.5 mg 02/05/24 17:30 Carvedilol 12.5 Mg Tablet PO 03/06/24 17:29 BIDWM ANAMARIA Dextrose 25 ml 01/24/24 19:42 Dextrose 50%-Water Inj 50 Ml Syringe IV 02/23/24 19:41 Q15MIN PRN BG 50-70 responsive npo pt Dextrose 50 ml 01/24/24 19:42 Dextrose 50%-Water Inj 50 Ml Syringe IV 02/23/24 19:41 Q15MIN PRN BG <50 OR BG <70 & pt unresponsive Doxycycline Hyclate 100 mg 02/01/24 21:00 02/05/24 09:08 Doxycycline 100 Mg Tablet PO 02/08/24 20:59 100 mg BID ANAMARIA Administration Glucagon 1 mg 01/24/24 19:42 Glucagon Inj 1 Mg Vial IM Q15MIN PRN BG <70, and no IV access Heparin Sodium (Porcine) 5,000 unit 01/24/24 22:00 02/05/24 05:23 Heparin Sod Inj 5000 Unit/Ml Vial SC 02/07/24 21:59 5,000 unit Q8HR ANAMARIA Administration Hydralazine HCl 100 mg 01/28/24 08:15 02/05/24 09:06 Hydralazine Hcl 25 Mg Tablet PO 02/27/24 08:14 100 mg Q8H ANAMARIA Administration Protocol Ceftriaxone Sodium 2 gm/ 50 mls @ 100 mls/hr 02/02/24 09:00 02/05/24 09:08 Sodium Chloride IV 02/09/24 08:59 100 mls/hr QDAY ANAMARIA Administration Insulin Glargine 10 unit 01/25/24 09:00 02/05/24 08:01 Insulin Glargine (Lantus) 5 Unit/0.05 Ml (Per 5 Units) SC 02/24/24 08:59 10 unit QDAY ANAMARIA Administration Insulin Human Regular 0 unit 01/24/24 21:00 02/05/24 11:36 Insulin Hum Regular 1 Unit/0.01 Ml (Per Unit) SC 02/23/24 20:59 1 unit ACHS ANAMARIA Administration Protocol Ipratropium [place] 0.5 mg 01/24/24 21:01 02/05/24 01:08 Ipratropium Rt 0.5 Mg/ 2.5 Ml Nebu INH 02/23/24 21:00 0.5 mg Q6HRRT PRN Administration SHORTNESS OF BREATH OR WHEEZE Protocol Levalbuterol HCl 1.25 mg 02/05/24 08:49 Levalbuterol Rt 1.25 Mg/0.5 Ml Nebu INH 02/24/24 00:59 Q6HRRT PRN WHEEZING Ondansetron HCl 4 mg 01/25/24 05:02 01/25/24 05:11 Ondansetron Inj 2 Mg/Ml Inj 2 Ml IV 02/24/24 05:01 4 mg Q6HR PRN Administration NAUSEA OR VOMITING Protocol Plan 63-year-old male with past medical history of HFpEF (EF 50 to 55%) DM2, hyperlipidemia, hypertension, prior osteomyelitis of right first toe s/p amputation was admitted to the hospital on 01/24/2024 for acute hypoxic respiratory failure secondary to acute decompensated heart failure exacerbation and sepsis likely secondary to pneumonia versus osteomyelitis. #Acute decompensated heart failure exacerbation #HFpEF (EF 50 to 55% 01/2024) #Acute hypoxic respiratory failure #Bilateral pleural effusions ?Patient came in with shortness of breath, bilateral lower extremity edema, and orthopnea ?Patient's last echo on 09/2023 showed an ejection fraction of 60 to 65% ?Chest x-ray 01/24/24 showed moderate heart failure ?BNP 671 -Echo showed EF 50-55% 01/2024 -Pleural fluid was transudative using lights criteria, most likely due to HF exacerbation. Plan: ?Continue PO Bumex 2mg twice daily -Increased Carvedilol to 12.5mg BID ?Strict CHAR's ?Fluid restrictions 1500 mL daily -Daily weights ?Keep potassium above 4 and magnesium above 2 -Low sodium diet -Cardiology consulted (Dr. Soriano), appreciate recommendations ?Will continue to monitor #Sepsis secondary to osteomyelitis #Pneumonia #Osteomyelitis ?Initially patient met SIRS criteria 2 out of 4 with leukocytosis and tachypnea ?Chest x-ray showed bilateral pneumonia and pleural effusions -CXR 01/27/2024 showed extensive ANGEL PNA ?Right foot x-ray showed osteomyelitis in the amputated first metatarsal and second metatarsophalangeal joint ?WBC 10 ?Discontinue azithromycin and Rocephin -DC's vancomycin [01/25/2024?01/27/2024], Cefepime [01/24-01/28], DC'd levofloxacin [01/29/2024?02/01/2024] ?PICC line in place Plan: ?Continue PO Doxycycline [02/01/2024-] and IV Rocephin [02/02/2024-] -IV Rocephin and PO Doxycycline upon DC until 02/27/2024 ?Breathing treatments as needed -Wound care ?Referral to physical therapy ?General Surgery consulted (Dr. Serna), recommended no surgery at the moment and to continue antibiotics #JOSE MARIA on CKD ?Patient has some underlying CKD since last year with GFR in the high 30s to 40s -Baseline Cr 1.9 and was 2.8 on admission -Likely prerenal given heart failure and volume overload status ?BUN 86 and creatinine 2.7 today Plan: ?Avoid nephrotoxic agents ?Renally dose medications -Continue Diuresis -Nephrology consulted, appreciated recommendations ? Will continue to monitor #Scabies, resolved ? Patient stated that multiple residents in his rehab center were diagnosed with scabies. ?Patient has multiple excoriations on his entire back and bilateral upper extremities. Plan: ? Permethrin x 1 done on 01/26/2024 ? Contact precautions ?will continue to monitor #Normocytic normochromic anemia ?Patient has a Hx of normocytic anemia with Hgb 10.4 prior to admission - Hgb 7.6 Plan: ?Will transfuse if hemoglobin less than 7 ?Will continue to monitor #Hx of DM2 ?A1c 6.2 on 01/25/2024 Plan: ?ISS ? Accu-Cheks and hypoglycemia protocol ? Will continue to monitor #Hx of hyperlipidemia ?Triglycerides 227, cholesterol 148, LDL 86, HDL 17 on 10/05/2023 Plan: ?Continue atorvastatin 40 mg #Hx of HTN -Continue hydralazine 100mg every 8 hours Disposition: Patient seen in telemetry continuing Antibiotic for Sepsis,pending SNF placement. Diet: Cardiac and carb consistent GI prophylaxis: not indicated DVT prophylaxis: Heparin sc Code: Full Case disclosed with Attending Dr. Rubio and My senior Dr. Barrera PGY2 Henri Perkins PGY1 Attending Provider Attestation/Addendum Jyotsna, Ashley Rubio, DO, attest that I was physically present for the brower portions of the service and evaluated the patient with the resident and I reviewed and discussed the case with the resident and agree with the resident's findings and plans of care as documented above Patient seen and evaluated this AM. He states he is doing well. No acute events overnight. Patient continues to have mild b/l LE edema. Continue with IV diuresis. Will f/u with cardiology recommendations. Patient is pending placement and insurance auth. Anticipate DC wtihin next 24-48hrs once insurance auth is obtained
--- NOTE | 2024-02-05 13:34 | ESPR_ITS ---
Documentation for date of: 02/05/24 Subjective Subjective Interval history: Mr. Sandoval is a 63 y/o M with PMHx significant for type 2 diabetes mellitus, hyperlipidemia, and hypertension who presents with shortness of breath and chest discomfort. Symptoms started approximately a week ago but acutely worsened overnight to the point where he would get short of breath after just a few steps, prompting him to come to the ED. Endorses orthopnea, PND, and bilateral lower extremity edema. Regarding his chest pain, describes it as substernal, pressure-like, worse with activity, and does not subside with rest. 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 Previously admitted and treated for osteomyelitis of right hallux on 09/2023 and underwent transmetatarsal amputation discharged with 7-day course of doxycycline that patient completed. Patient was hypertensive at 175/85 and hypoxic 86% on room air increased to 98% on 8 L oxy mask in the ED. Chest x-ray showed vascular congestion, bilateral pleural effusions. Patient received DuoNebs, ceftriaxone, and 40 mg Lasix in the ED. Patient admitted for acute hypoxic respiratory failure secondary to acute decompensated heart failure exacerbation and sepsis likely secondary to pneumonia versus osteomyelitis. Patient labs on admission showed BUN 56, creatinine 2.8, eGFR 25 compared to baseline BUN 40, baseline creatinine 1.9, baseline eGFR 39. Patient has been treated for presumptive prerenal JOSE MARIA due to volume overload with Bumex 2 mg IV twice daily, patient has not shown improvement in renal function. Urinalysis shows nephrotic range proteinuria 3+. Nephrology consulted for worsening JOSE MARIA on CKD despite diuretic treatment. Patient seen and examined on the floors. Patient resting in bed, appears mildly distressed and chronically ill. Patient has clear signs of fluid overload: Anasarca, crackles on lung auscultation. Held patient's amlodipine due to risk of increased edema. At time of exam labs showed BUN 61, creatinine 2.5, eGFR 28. Additional urine studies ordered. Renal ultrasound performed, showed moderate bilateral renal parenchymal scar formation, no hydronephrosis. 01/29: Patient seen and examined in telemetry. Patient appears mildly uncomfortable, ill appearing. Patient was anemic at 6.9 hemoglobin, repeat H&H showed hemoglobin 7.4. Patient remains severely fluid overloaded. BUN 61, creatinine 2.7, eGFR 26. Random urine creatinine?68, urine total protein 169, ratio 2.4. PTH 89. 24-hour urine collection pending. 1.9 L in, 1.5 L. 01/31/2024 patient currently seen in telemetry. Family at bedside.24-hour urine showed 2.5 g of protein per day. WBC 10, hemoglobin 7.1, platelets 351. Sodium 138, potassium 4.7, BUN 62, creatinine 2.7, GFR 26, phosphorus 4, ferritin 132, iron saturation 7, alk phos 142, albumin 3.1, B12 342, vitamin D23.5, PTH 89, urinalysis shows proteinuria. Patient had 2.1 L of urine. 02/03/2024 patient currently seen in telemetry. Resting comfortably. His shortness of breath is tad better. Blood pressure 144/79, heart rate 71. Hemoglobin 7.5. Sodium 136, potassium 4.4, BUN 66, creatinine 2.8, glucose 116, magnesium 1.9, LFTs normal, albumin 3. Patient anxious to go home. 02/04/2024: Patient seen in telemetry. Resting comfortably, sitting at edge of bed. Hemoglobin 7.6. Sodium 135, potassium 4.7, bicarb 25.4, BUN 75, creatinine 2.7, eGFR 26. 2.9 L urinary output. 02/05/2024: Patient seen on the medical floors. Resting comfortably, sitting at edge of bed. Patient has right arm PICC line. Hemoglobin 7.1. Sodium 135, potassium 4.8, bicarb 24.8, BUN 86, creatinine 2.7, eGFR 26. 1.9 L urinary output. Will need to follow-up with Dr. Main outpatient. Exam Vital Signs Temp Pulse Resp BP Pulse Ox O2 Del Method O2 Flow Rate 98.2 F 72 18 147/80 H 95 Room Air 4 02/05/24 11:51 02/05/24 12:00 02/05/24 11:51 02/05/24 12:00 02/05/24 11:51 02/05/24 07:58 02/04/24 12:39 FiO2 0 02/05/24 04:00 Narrative Exam PE: Gen: Well-developed and well-nourished. HEENT: NCAT, PERRLA, EOMI, MMM, anicteric conjunctivae. CVS: normal S1 and S2. RRR. No M/R/G. Resp: Lungs clear to auscultation bilaterally. Abd: Soft, nontender. MSK: Good ROM in BUE & BLE. Bilateral lower extremity edema with skin changes secondary to chronic PAD. Neuro: CN II-XII grossly intact. Strength 5/5 in BUE & BLE. Alert and oriented x3. Psych: appropriate mood and affect. Objective Labs 02/05/24 09:55 02/05/24 09:55 Labs: Laboratory Results - last 24 hr 02/02/24 02/05/24 05:54 09:55 WBC 10.0 RBC 2.74 L Hgb 7.1 L Hct 22.6 L MCV 83 MCH 25.9 MCHC 31.4 RDW Std Deviation 44.0 H Plt Count 340 D Neut % (Auto) 62 Lymph % (Auto) 20 [place] % (Auto) 10 Eos % (Auto) 6 Baso % (Auto) 0 Neut # (Auto) 6.2 Lymph # (Auto) 2.0 [place] # (Auto) 1.0 H Eos # (Auto) 0.6 H Baso # (Auto) 0.0 Immature Gran # (Auto) 0.11 H Absolute Nucleated RBC 0.00 Immature Gran % 1 H Nucleated RBC % 0 Sodium 135 L Potassium 4.8 Chloride 102 Carbon Dioxide 24.8 Anion Gap 8 BUN 86 H Creatinine 2.7 H Estim Creat Clear Calc 29.1 L eGFR 26 L BUN/Creatinine Ratio 32 H Glucose 155 H D Calculated Osmolality 299 H Calcium 8.4 Corrected Calcium 9.0 Magnesium 2.1 AST 42 H ALT 54 H Alkaline Phosphatase 176 H Total Protein 6.2 Albumin 3.2 L Globulin 3.0 Albumin/Globulin Ratio 1.1 L TB Test (QFT) See Sep Rpt ABG Interpretation ABG results: 01/25/24 01/25/24 01/26/24 19:50 20:13 03:33 ABG pH Cancelled 7.36 7.36 ABG pCO2 Cancelled 39 39 ABG pO2 Cancelled 53 L* 77 L D ABG HCO3 Cancelled 22 22 ABG O2 Saturation Cancelled 87 L 96 ABG Base Excess Cancelled -3 -3 Quality Measures Quality Measures VTE prophylaxis Assessment & Plan Assessment Current Active Medications: Generic Name Dose Route Start Last Admin Trade Name Freq PRN Reason Stop Dose Admin Acetaminophen 650 mg 01/24/24 19:40 Acetaminophen 325 Mg Tablet PO 02/23/24 19:39 Q6H PRN Fever >101.5 Atorvastatin Calcium 40 mg 01/27/24 21:00 02/04/24 20:20 Atorvastatin Calcium 20 Mg Tablet PO 02/26/24 20:59 40 mg HS ANAMARIA Administration Bumetanide 2 mg 02/05/24 21:00 Bumetanide Inj 0.25 Mg/Ml Vial 4 Ml IVP 03/06/24 20:59 BID ANAMARIA Carvedilol 12.5 mg 02/05/24 17:30 Carvedilol 12.5 Mg Tablet PO 03/06/24 17:29 BIDWM ANAMARIA Dextrose 25 ml 01/24/24 19:42 Dextrose 50%-Water Inj 50 Ml Syringe IV 02/23/24 19:41 Q15MIN PRN BG 50-70 responsive npo pt Dextrose 50 ml 01/24/24 19:42 Dextrose 50%-Water Inj 50 Ml Syringe IV 02/23/24 19:41 Q15MIN PRN BG <50 OR BG <70 & pt unresponsive Doxycycline Hyclate 100 mg 02/01/24 21:00 02/05/24 09:08 Doxycycline 100 Mg Tablet PO 02/08/24 20:59 100 mg BID ANAMARIA Administration Glucagon 1 mg 01/24/24 19:42 Glucagon Inj 1 Mg Vial IM Q15MIN PRN BG <70, and no IV access Heparin Sodium (Porcine) 5,000 unit 01/24/24 22:00 02/05/24 05:23 Heparin Sod Inj 5000 Unit/Ml Vial SC 02/07/24 21:59 5,000 unit Q8HR ANAMARIA Administration Hydralazine HCl 100 mg 01/28/24 08:15 02/05/24 09:06 Hydralazine Hcl 25 Mg Tablet PO 02/27/24 08:14 100 mg Q8H ANAMARIA Administration Protocol Ceftriaxone Sodium 2 gm/ 50 mls @ 100 mls/hr 02/02/24 09:00 02/05/24 09:08 Sodium Chloride IV 02/09/24 08:59 100 mls/hr QDAY ANAMARIA Administration Insulin Glargine 10 unit 01/25/24 09:00 02/05/24 08:01 Insulin Glargine (Lantus) 5 Unit/0.05 Ml (Per 5 Units) SC 02/24/24 08:59 10 unit QDAY ANAMARIA Administration Insulin Human Regular 0 unit 01/24/24 21:00 02/05/24 11:36 Insulin Hum Regular 1 Unit/0.01 Ml (Per Unit) SC 02/23/24 20:59 1 unit ACHS ANAMARIA Administration Protocol Ipratropium [place] 0.5 mg 01/24/24 21:01 02/05/24 01:08 Ipratropium Rt 0.5 Mg/ 2.5 Ml Nebu INH 02/23/24 21:00 0.5 mg Q6HRRT PRN Administration SHORTNESS OF BREATH OR WHEEZE Protocol Levalbuterol HCl 1.25 mg 02/05/24 08:49 Levalbuterol Rt 1.25 Mg/0.5 Ml Nebu INH 02/24/24 00:59 Q6HRRT PRN WHEEZING Ondansetron HCl 4 mg 01/25/24 05:02 01/25/24 05:11 Ondansetron Inj 2 Mg/Ml Inj 2 Ml IV 02/24/24 05:01 4 mg Q6HR PRN Administration NAUSEA OR VOMITING Protocol Plan 63 y/o M with PMHx significant for HFpEF (EF 50 to 55%) DM2, hyperlipidemia, hypertension, prior osteomyelitis of right first toe s/p amputation was admitted to the hospital on 01/24/2024 for acute hypoxic respiratory failure secondary to acute decompensated heart failure exacerbation and sepsis likely secondary to pneumonia versus osteomyelitis. #JOSE MARIA on CKD Patient seems to have combination of cardiorenal syndrome and nonnephrotic range proteinuria as a cause for significant anasarca. JOSE MARIA secondary to prerenal azotemia from CHF decompensation. Underlying chronic kidney disease from diabetic nephropathy. 24-hour urine showed 2.5 g of proteinuria. Had a long conversation with patient regarding diuretic dependent/resistant state and need for sequential ultrafiltration if no improvement in edema. Patient agreed. Currently his creatinine stable at 2.8. No need for emergency dialysis. He will be left with elevated BUN and creatinine to maintain a euvolemic state. Renal ultrasound showed moderate bilateral renal parenchymal scar formation, no hydronephrosis. Patient maintains good urinary output. Edema slowly improving. Plan: -Avoid nephrotoxic agents -Renally dose medications -Hold amlodipine -Strict I's and O's -Continue Diuresis-currently on 2 mg IV Bumex twice daily -Will continue to monitor -Follow-up with Dr. Main outpatient #Acute decompensated heart failure exacerbation. #HFpEF (EF 50 to 55% 01/2024). #Acute hypoxic respiratory failure. On oxygen #Bilateral pleural effusions. #Sepsis likely secondary to pneumonia versus osteomyelitis-resolved #Pneumonia #Normocytic normochromic anemia #Hx of DM2 #Hx of hyperlipidemia #Hx of HTN Management as per primary team. Thank you for allow me to participate in the care of this patient. Plan of care discussed with attending Dr. Main. Les Godwin MD PGY-1 Attending Provider Attestation/Addendum Patient seen and examined with resident physician Dr. Godwin. Note reviewed, agree with findings and recommendations.
--- NOTE | 2024-02-05 14:40 | PC.SS ---
SS follow up note; SS contacted Naeem declan, Auth is still pending at the time.
[2024-02-05 14:43] LABS: Bilirubin,Total < 0.2 mg/dL (0.3-1.2)
--- NOTE | 2024-02-05 16:24 | PC.CM ---
VEL Petersen informed me that pt doesn't have a teachable patient care assistant who can help pt with IV abx and it is not a safe discharge. She also informed me that SS reached out to [facility] nursing facility to see if they can accept the pt. In the meantime, transfer center nurses are on standby for any further needs.
[2024-02-05] MEDS: carVEDILOL 12.5 MG TABLET PO (17:06)
--- NOTE | 2024-02-05 18:02 | PC.NURSE ---
pt refusing bed alarm,let him know aboult risk for falls... still refused
[2024-02-05] MEDS: ATORVASTATIN CALCIUM 20 MG TABLET 40 MG PO (21:29)
[2024-02-05] MEDS: BUMETANIDE INJ 0.25 MG/ML VIAL 4 ML 2 MG IVP (21:31)
[2024-02-06] VITALS (12 sets, daily range): BP systolic 139–155; BP diastolic 71–83; PULSE 66–87; RESP 17–23; TEMP 36.6–37; O2SAT 92–96; BMI 31.0
[2024-02-06] MEDS: HEPARIN SOD INJ 5000 UNIT/ML VIAL SC ×3 (05:03→21:19)
--- NOTE | 2024-02-06 06:14 | PC.NURSE ---
called Dr. Golden if patient need any lab draw this morning, will let morning team know if labs are needed.
[2024-02-06] MEDS: hydrALAZINE HCL 25 MG TABLET 100 MG PO ×2 (08:01→17:06)
[2024-02-06] MEDS: carVEDILOL 12.5 MG TABLET PO ×2 (08:03→17:07)
[2024-02-06] MEDS: cefTRIAXone 2 GM in SODIUM CHLORIDE 0.9% (P) 50 ML IV (09:39)
[2024-02-06] MEDS: DOXYCYCLINE 100 MG TABLET PO ×2 (09:39→21:18)
[2024-02-06] MEDS: INSULIN GLARGINE (Lantus) 5 UNIT/0.05 ML (PER 5 UNITS) 10 UNIT SC (09:40)
[2024-02-06 09:53] LABS: Basophils % (Auto) 0 % (0-2.5); Eosinophils # (Auto) 0.6 Thou/mm3 (0.0-0.5); Eosinophils % (Auto) 5 % (0-10); Hematocrit 23.1 % (41.0-53.0); Immature Granulocytes % (Auto) 1 % (0-0); Immature Granulocytes Auto 0.12 Thou/mm3 (0.00-0.00); Lymphocytes # (Auto) 2.2 Thou/mm3 (1.0-4.8); Lymphocytes % (Auto) 20 % (10-50); Mean Corpuscular HGB Conc 31.2 g/dl (31.0-37.0); Mean Corpuscular Hemoglobin 25.6 pg (25.0-35.0); Mean Corpuscular Volume 82 fL (80-100); Monocytes # (Auto) 1.1 Thou/mm3 (0.0-0.8); Monocytes % (Auto) 10 % (0-12); Neutrophils % (Auto) 63 % (37-80); Nucleated Red Blood Cell % 0 /100 WBC (0); Platelet Count 343 Thou/mm3 (140-440); RDW Standard Deviation 44.2 fL (35.1-43.9); Red Blood Count 2.81 Miln/mm3 (4.50-5.90); White Blood Count 11.1 Thou/mm3 (3.8-10.6)
[2024-02-06 09:56] LABS: Hemoglobin 7.2 g/dL (13.5-16.0)
[2024-02-06 10:33] LABS: Alanine Aminotransferase 45 U/L (10-49); Albumin, Serum 3.3 gm/dL (3.4-4.8); Alkaline Phosphatase 169 U/L (46-116); Anion Gap 8 (7-16); Aspartate Amino Transferase 29 U/L (0-34); BUN/Creatinine Ratio 31 Ratio (12-20); Blood Urea Nitrogen 83 mg/dL (9-23); Calcium 8.5 mg/dL (8.3-10.6); Calcium (Corrected) 9.1 mg/dL (8.5-10.1); Carbon Dioxide 25.4 mMol/L (20.0-31.0); Chloride 101 mMol/L (98-107); Creatinine (Component) 2.7 mg/dL (0.6-1.3); Estimated Creatinine Clearance 29.1 mL/min (>60); Globulin 3.3 gm/dL (2.3-3.5); Glucose 149 mg/dL (74-106); Osmolality,Calculated 296 (275-295); Potassium 4.3 mMol/L (3.4-5.1); Sodium 134 mMol/L (136-145); Total Protein 6.6 gm/dL (5.7-8.2); eGFR 26 See Note
[2024-02-06 11:03] LABS: Bilirubin,Total 0.2 mg/dL (0.3-1.2)
--- NOTE | 2024-02-06 11:45 | ESPR_ITS ---
Documentation for date of: 02/06/24 Subjective Subjective Interval history: Mr. Sandoval is a 63 y/o M with PMHx significant for type 2 diabetes mellitus, hyperlipidemia, and hypertension who presents with shortness of breath and chest discomfort. Symptoms started approximately a week ago but acutely worsened overnight to the point where he would get short of breath after just a few steps, prompting him to come to the ED. Endorses orthopnea, PND, and bilateral lower extremity edema. Regarding his chest pain, describes it as substernal, pressure-like, worse with activity, and does not subside with rest. Not on home oxygen and currently on 8 L oxy mask and states that he does not have an outpatient swager operator. Previously admitted and treated for osteomyelitis of right hallux on 09/2023 and underwent transmetatarsal amputation discharged with 7-day course of doxycycline that patient completed. Patient was hypertensive at 175/85 and hypoxic 86% on room air increased to 98% on 8 L oxy mask in the ED. Chest x-ray showed vascular congestion, bilateral pleural effusions. Patient received DuoNebs, ceftriaxone, and 40 mg Lasix in the ED. Patient admitted for acute hypoxic respiratory failure secondary to acute decompensated heart failure exacerbation and sepsis likely secondary to pneumonia versus osteomyelitis. Patient labs on admission showed BUN 56, creatinine 2.8, eGFR 25 compared to baseline BUN 40, baseline creatinine 1.9, baseline eGFR 39. Patient has been treated for presumptive prerenal JOSE MARIA due to volume overload with Bumex 2 mg IV twice daily, patient has not shown improvement in renal function. Urinalysis shows nephrotic range proteinuria 3+. Nephrology consulted for worsening JOSE MARIA on CKD despite diuretic treatment. Patient seen and examined on the floors. Patient resting in bed, appears mildly distressed and chronically ill. Patient has clear signs of fluid overload: Anasarca, crackles on lung auscultation. Held patient's amlodipine due to risk of increased edema. At time of exam labs showed BUN 61, creatinine 2.5, eGFR 28. Additional urine studies ordered. Renal ultrasound performed, showed moderate bilateral renal parenchymal scar formation, no hydronephrosis. 01/29: Patient seen and examined in telemetry. Patient appears mildly uncomfortable, ill appearing. Patient was anemic at 6.9 hemoglobin, repeat H&H showed hemoglobin 7.4. Patient remains severely fluid overloaded. BUN 61, creatinine 2.7, eGFR 26. Random urine creatinine?68, urine total protein 169, ratio 2.4. PTH 89. 24-hour urine collection pending. 1.9 L in, 1.5 L. 01/31/2024 patient currently seen in telemetry. Family at bedside.24-hour urine showed 2.5 g of protein per day. WBC 10, hemoglobin 7.1, platelets 351. Sodium 138, potassium 4.7, BUN 62, creatinine 2.7, GFR 26, phosphorus 4, ferritin 132, iron saturation 7, alk phos 142, albumin 3.1, B12 342, vitamin D23.5, PTH 89, urinalysis shows proteinuria. Patient had 2.1 L of urine. 02/03/2024 patient currently seen in telemetry. Resting comfortably. His shortness of breath is tad better. Blood pressure 144/79, heart rate 71. Hemoglobin 7.5. Sodium 136, potassium 4.4, BUN 66, creatinine 2.8, glucose 116, magnesium 1.9, LFTs normal, albumin 3. Patient anxious to go home. 02/04/2024: Patient seen in telemetry. Resting comfortably, sitting at edge of bed. Hemoglobin 7.6. Sodium 135, potassium 4.7, bicarb 25.4, BUN 75, creatinine 2.7, eGFR 26. 2.9 L urinary output. 02/05/2024: Patient seen on the medical floors. Resting comfortably, sitting at edge of bed. Patient has right arm PICC line. Hemoglobin 7.1. Sodium 135, potassium 4.8, bicarb 24.8, BUN 86, creatinine 2.7, eGFR 26. 1.9 L urinary output. Will need to follow-up with Dr. Main outpatient. 02/06/2024: Patient seen on the medical floors. Resting comfortably, sitting on edge of bed. Hemoglobin 7.2. Sodium 134, potassium 4.3, bicarb 25.4, BUN 83, creatinine 2.7, eGFR 26. Exam Vital Signs Temp Pulse Resp BP Pulse Ox O2 Del Method O2 Flow Rate 98.4 F 87 20 155/78 H 92 L Room Air 4 02/06/24 08:00 02/06/24 08:55 02/06/24 08:55 02/06/24 08:03 02/06/24 08:55 02/06/24 08:00 02/04/24 12:39 FiO2 0 02/05/24 04:00 Narrative Exam PE: Gen: Well-developed and well-nourished. HEENT: NCAT, PERRLA, EOMI, MMM, anicteric conjunctivae. CVS: normal S1 and S2. RRR. No M/R/G. Resp: Lungs clear to auscultation bilaterally. Abd: Soft, nontender. MSK: Good ROM in BUE & BLE. Bilateral lower extremity edema with skin changes secondary to chronic PAD. Neuro: CN II-XII grossly intact. Strength 5/5 in BUE & BLE. Alert and oriented x3. Psych: appropriate mood and affect. Objective Labs 02/06/24 09:23 02/06/24 09:23 Labs: Laboratory Results - last 24 hr 02/05/24 02/06/24 09:55 09:23 WBC 11.1 H RBC 2.81 L Hgb 7.2 L Hct 23.1 L MCV 82 MCH 25.6 MCHC 31.2 RDW Std Deviation 44.2 H Plt Count 343 Neut % (Auto) 63 Lymph % (Auto) 20 [place] % (Auto) 10 Eos % (Auto) 5 Baso % (Auto) 0 Neut # (Auto) 7.0 Lymph # (Auto) 2.2 [place] # (Auto) 1.1 H Eos # (Auto) 0.6 H Baso # (Auto) 0.0 Immature Gran # (Auto) 0.12 H Absolute Nucleated RBC 0.00 Immature Gran % 1 H Nucleated RBC % 0 Sodium 135 L 134 L Potassium 4.8 4.3 D Chloride 102 101 Carbon Dioxide 24.8 25.4 Anion Gap 8 8 BUN 86 H 83 H Creatinine 2.7 H 2.7 H Estim Creat Clear Calc 29.1 L 29.1 L eGFR 26 L 26 L BUN/Creatinine Ratio 32 H 31 H Glucose 155 H D 149 H Calculated Osmolality 299 H 296 H Calcium 8.4 8.5 Corrected Calcium 9.0 9.1 Magnesium 2.1 Total Bilirubin < 0.2 L 0.2 L AST 42 H 29 ALT 54 H 45 Alkaline Phosphatase 176 H 169 H Total Protein 6.2 6.6 Albumin 3.2 L 3.3 L Globulin 3.0 3.3 Albumin/Globulin Ratio 1.1 L 1.0 L ABG Interpretation ABG results: 01/25/24 01/25/24 01/26/24 19:50 20:13 03:33 ABG pH Cancelled 7.36 7.36 ABG pCO2 Cancelled 39 39 ABG pO2 Cancelled 53 L* 77 L D ABG HCO3 Cancelled 22 22 ABG O2 Saturation Cancelled 87 L 96 ABG Base Excess Cancelled -3 -3 Quality Measures Quality Measures VTE prophylaxis Assessment & Plan Assessment Current Active Medications: Generic Name Dose Route Start Last Admin Trade Name Yoan PRN Reason Stop Dose Admin Acetaminophen 650 mg 01/24/24 19:40 Acetaminophen 325 Mg Tablet PO 02/23/24 19:39 Q6H PRN Fever >101.5 Atorvastatin Calcium 40 mg 01/27/24 21:00 02/05/24 21:29 Atorvastatin Calcium 20 Mg Tablet PO 02/26/24 20:59 40 mg HS ANAMARIA Administration Bumetanide 2 mg 02/08/24 09:00 Bumetanide 0.5 Mg Tablet PO 03/09/24 08:59 QDAY ANAMARIA Carvedilol 12.5 mg 02/05/24 17:30 02/06/24 08:03 Carvedilol 12.5 Mg Tablet PO 03/06/24 17:29 12.5 mg BIDWM ANAMARIA Administration Dextrose 25 ml 01/24/24 19:42 Dextrose 50%-Water Inj 50 Ml Syringe IV 02/23/24 19:41 Q15MIN PRN BG 50-70 responsive npo pt Dextrose 50 ml 01/24/24 19:42 Dextrose 50%-Water Inj 50 Ml Syringe IV 02/23/24 19:41 Q15MIN PRN BG <50 OR BG <70 & pt unresponsive Doxycycline Hyclate 100 mg 02/01/24 21:00 02/06/24 09:39 Doxycycline 100 Mg Tablet PO 02/08/24 20:59 100 mg BID ANAMARIA Administration Glucagon 1 mg 01/24/24 19:42 Glucagon Inj 1 Mg Vial IM Q15MIN PRN BG <70, and no IV access Heparin Sodium (Porcine) 5,000 unit 01/24/24 22:00 02/06/24 05:03 Heparin Sod Inj 5000 Unit/Ml Vial SC 02/07/24 21:59 5,000 unit Q8HR ANAMARIA Administration Hydralazine HCl 100 mg 01/28/24 08:15 02/06/24 08:01 Hydralazine Hcl 25 Mg Tablet PO 02/27/24 08:14 100 mg Q8H ANAMARIA Administration Protocol Ceftriaxone Sodium 2 gm/ 50 mls @ 100 mls/hr 02/02/24 09:00 02/06/24 09:39 Sodium Chloride IV 02/09/24 08:59 100 mls/hr QDAY ANAMARIA Administration Insulin Glargine 10 unit 01/25/24 09:00 02/06/24 09:40 Insulin Glargine (Lantus) 5 Unit/0.05 Ml (Per 5 Units) SC 02/24/24 08:59 10 unit QDAY ANAMARIA Administration Insulin Human Regular 0 unit 01/24/24 21:00 02/06/24 09:32 Insulin Hum Regular 1 Unit/0.01 Ml (Per Unit) SC 02/23/24 20:59 Not Given ACHS ANAMARIA Protocol Ipratropium [place] 0.5 mg 01/24/24 21:01 02/05/24 01:08 Ipratropium Rt 0.5 Mg/ 2.5 Ml Nebu INH 02/23/24 21:00 0.5 mg Q6HRRT PRN Administration SHORTNESS OF BREATH OR WHEEZE Protocol Levalbuterol HCl 1.25 mg 02/05/24 08:49 Levalbuterol Rt 1.25 Mg/0.5 Ml Nebu INH 02/24/24 00:59 Q6HRRT PRN WHEEZING Ondansetron HCl 4 mg 01/25/24 05:02 01/25/24 05:11 Ondansetron Inj 2 Mg/Ml Inj 2 Ml IV 02/24/24 05:01 4 mg Q6HR PRN Administration NAUSEA OR VOMITING Protocol Plan 63 y/o M with PMHx significant for HFpEF (EF 50 to 55%) DM2, hyperlipidemia, hypertension, prior osteomyelitis of right first toe s/p amputation was admitted to the hospital on 01/24/2024 for acute hypoxic respiratory failure secondary to acute decompensated heart failure exacerbation and sepsis likely secondary to pneumonia versus osteomyelitis. #JOSE MARIA on CKD Patient seems to have combination of cardiorenal syndrome and nonnephrotic range proteinuria as a cause for significant anasarca. JOSE MARIA secondary to prerenal azotemia from CHF decompensation. Underlying chronic kidney disease from diabetic nephropathy. 24-hour urine showed 2.5 g of proteinuria. Had a long conversation with patient regarding diuretic dependent/resistant state and need for sequential ultrafiltration if no improvement in edema. Patient agreed. Currently his creatinine stable at 2.8. No need for emergency dialysis. He will be left with elevated BUN and creatinine to maintain a euvolemic state. Renal ultrasound showed moderate bilateral renal parenchymal scar formation, no hydronephrosis. Patient maintains good urinary output. Edema slowly improving. Plan: -Avoid nephrotoxic agents -Renally dose medications -Hold amlodipine -Strict I's and O's -Continue Diuresis-currently on 2 mg IV Bumex twice daily -Will continue to monitor -Follow-up with Dr. Main outpatient #Acute decompensated heart failure exacerbation. #HFpEF (EF 50 to 55% 01/2024). #Acute hypoxic respiratory failure. On oxygen #Bilateral pleural effusions. #Sepsis likely secondary to pneumonia versus osteomyelitis-resolved #Pneumonia #Normocytic normochromic anemia #Hx of DM2 #Hx of hyperlipidemia #Hx of HTN Management as per primary team. Thank you for allow me to participate in the care of this patient. Plan of care discussed with attending Dr. Main. Les Godwin MD PGY-1 Attending Provider Attestation/Addendum Patient seen and examined with resident physician Dr. Godwin. Note reviewed, agree with findings and recommendations. Patient still with edema and shortness of breath although much better day by day improving. Hemoglobin 7.2. Sodium 134, BUN 83, creatinine 2.7. continue diuretics
--- NOTE | 2024-02-06 11:56 | ESPR_ITS ---
Documentation for date of: 02/06/24 Subjective Subjective Interval history: Patient's vitals, labs, imaging and chart reviewed. Patient interviewed and examined at bedside this AM. No acute overnight events reported. Patient pending authorization for SNF placement. Patient reports feeling well. Will continue diuresis per nephrology services recommendations. Exam Vital Signs Temp Pulse Resp BP Pulse Ox O2 Del Method O2 Flow Rate 98.4 F 87 20 155/78 H 92 L Room Air 4 02/06/24 08:00 02/06/24 08:55 02/06/24 08:55 02/06/24 08:03 02/06/24 08:55 02/06/24 08:00 02/04/24 12:39 FiO2 0 02/05/24 04:00 Narrative Exam General: Not in any visible or apparent acute distress, well appearing, alert, pleasant and interactive HEENT: NC/AT, moist mucous membranes Neck: Supple, No masses, No JVD, normal range of motion CVS: S1S2 Regular rate and rhythm, No murmurs, rubs or gallops Lungs: Normal respiratory effort, no wheezing rhonchi or rales, CTAB Abd: Soft, non-distended Ext: B/L Lower extremity edema, warm well perfused, right LE first toe amputation with C/D/I dressing Skin: Intact, no rashes, no lesions, no erythema Neuro: AOx3, no gross focal neurological deficits Objective Labs 02/06/24 09:23 02/06/24 09:23 Labs: Laboratory Results - last 24 hr 02/05/24 02/06/24 09:55 09:23 WBC 11.1 H RBC 2.81 L Hgb 7.2 L Hct 23.1 L MCV 82 MCH 25.6 MCHC 31.2 RDW Std Deviation 44.2 H Plt Count 343 Neut % (Auto) 63 Lymph % (Auto) 20 [place] % (Auto) 10 Eos % (Auto) 5 Baso % (Auto) 0 Neut # (Auto) 7.0 Lymph # (Auto) 2.2 [place] # (Auto) 1.1 H Eos # (Auto) 0.6 H Baso # (Auto) 0.0 Immature Gran # (Auto) 0.12 H Absolute Nucleated RBC 0.00 Immature Gran % 1 H Nucleated RBC % 0 Sodium 135 L 134 L Potassium 4.8 4.3 D Chloride 102 101 Carbon Dioxide 24.8 25.4 Anion Gap 8 8 BUN 86 H 83 H Creatinine 2.7 H 2.7 H Estim Creat Clear Calc 29.1 L 29.1 L eGFR 26 L 26 L BUN/Creatinine Ratio 32 H 31 H Glucose 155 H D 149 H Calculated Osmolality 299 H 296 H Calcium 8.4 8.5 Corrected Calcium 9.0 9.1 Magnesium 2.1 Total Bilirubin < 0.2 L 0.2 L AST 42 H 29 ALT 54 H 45 Alkaline Phosphatase 176 H 169 H Total Protein 6.2 6.6 Albumin 3.2 L 3.3 L Globulin 3.0 3.3 Albumin/Globulin Ratio 1.1 L 1.0 L ABG Interpretation ABG results: 01/25/24 01/25/24 01/26/24 19:50 20:13 03:33 ABG pH Cancelled 7.36 7.36 ABG pCO2 Cancelled 39 39 ABG pO2 Cancelled 53 L* 77 L D ABG HCO3 Cancelled 22 22 ABG O2 Saturation Cancelled 87 L 96 ABG Base Excess Cancelled -3 -3 Quality Measures Quality Measures VTE prophylaxis Assessment & Plan Assessment Current Active Medications: Generic Name Dose Route Start Last Admin Trade Name Freq PRN Reason Stop Dose Admin Acetaminophen 650 mg 01/24/24 19:40 Acetaminophen 325 Mg Tablet PO 02/23/24 19:39 Q6H PRN Fever >101.5 Atorvastatin Calcium 40 mg 01/27/24 21:00 02/05/24 21:29 Atorvastatin Calcium 20 Mg Tablet PO 02/26/24 20:59 40 mg HS ANAMARIA Administration Bumetanide 2 mg 02/08/24 09:00 Bumetanide 0.5 Mg Tablet PO 03/09/24 08:59 QDAY ANAMARIA Carvedilol 12.5 mg 02/05/24 17:30 02/06/24 08:03 Carvedilol 12.5 Mg Tablet PO 03/06/24 17:29 12.5 mg BIDWM ANAAMRIA Administration Dextrose 25 ml 01/24/24 19:42 Dextrose 50%-Water Inj 50 Ml Syringe IV 02/23/24 19:41 Q15MIN PRN BG 50-70 responsive npo pt Dextrose 50 ml 01/24/24 19:42 Dextrose 50%-Water Inj 50 Ml Syringe IV 02/23/24 19:41 Q15MIN PRN BG <50 OR BG <70 & pt unresponsive Doxycycline Hyclate 100 mg 02/01/24 21:00 02/06/24 09:39 Doxycycline 100 Mg Tablet PO 02/08/24 20:59 100 mg BID ANAMARIA Administration Glucagon 1 mg 01/24/24 19:42 Glucagon Inj 1 Mg Vial IM Q15MIN PRN BG <70, and no IV access Heparin Sodium (Porcine) 5,000 unit 01/24/24 22:00 02/06/24 05:03 Heparin Sod Inj 5000 Unit/Ml Vial SC 02/07/24 21:59 5,000 unit Q8HR ANAMARIA Administration Hydralazine HCl 100 mg 01/28/24 08:15 02/06/24 08:01 Hydralazine Hcl 25 Mg Tablet PO 02/27/24 08:14 100 mg Q8H ANAMARIA Administration Protocol Ceftriaxone Sodium 2 gm/ 50 mls @ 100 mls/hr 02/02/24 09:00 02/06/24 09:39 Sodium Chloride IV 02/09/24 08:59 100 mls/hr QDAY ANAMARIA Administration Insulin Glargine 10 unit 01/25/24 09:00 02/06/24 09:40 Insulin Glargine (Lantus) 5 Unit/0.05 Ml (Per 5 Units) SC 02/24/24 08:59 10 unit QDAY ANAMARIA Administration Insulin Human Regular 0 unit 01/24/24 21:00 02/06/24 09:32 Insulin Hum Regular 1 Unit/0.01 Ml (Per Unit) SC 02/23/24 20:59 Not Given ACHS [facility] Protocol Ipratropium [place] 0.5 mg 01/24/24 21:01 02/05/24 01:08 Ipratropium Rt 0.5 Mg/ 2.5 Ml Nebu INH 02/23/24 21:00 0.5 mg Q6HRRT PRN Administration SHORTNESS OF BREATH OR WHEEZE Protocol Levalbuterol HCl 1.25 mg 02/05/24 08:49 Levalbuterol Rt 1.25 Mg/0.5 Ml Nebu INH 02/24/24 00:59 Q6HRRT PRN WHEEZING Ondansetron HCl 4 mg 01/25/24 05:02 01/25/24 05:11 Ondansetron Inj 2 Mg/Ml Inj 2 Ml IV 02/24/24 05:01 4 mg Q6HR PRN Administration NAUSEA OR VOMITING Protocol Plan 63-year-old male with past medical history of HFpEF (EF 50 to 55%) DM2, hyperlipidemia, hypertension, prior osteomyelitis of right first toe s/p amputation was admitted to the hospital on 01/24/2024 for acute hypoxic respiratory failure secondary to acute decompensated heart failure exacerbation and sepsis likely secondary to pneumonia versus osteomyelitis. #Acute decompensated heart failure exacerbation #HFpEF (EF 50 to 55% 01/2024) #Acute hypoxic respiratory failure #Bilateral pleural effusions ?Patient came in with shortness of breath, bilateral lower extremity edema, and orthopnea ?Patient's last echo on 09/2023 showed an ejection fraction of 60 to 65% ?Chest x-ray 01/24/24 showed moderate heart failure ?BNP 671 -Echo showed EF 50-55% 01/2024 -Pleural fluid was transudative using lights criteria, most likely due to HF exacerbation. Plan: ?Continue PO Bumex 2mg twice daily -Increased Carvedilol to 12.5mg BID ?Strict CHAR's ?Fluid restrictions 1500 mL daily -Daily weights ?Keep potassium above 4 and magnesium above 2 -Low sodium diet -Cardiology consulted, appreciate recommendations ?Will continue to monitor #Sepsis secondary to osteomyelitis #Pneumonia #Osteomyelitis ?Initially patient met SIRS criteria 2 out of 4 with leukocytosis and tachypnea ?Chest x-ray showed bilateral pneumonia and pleural effusions -CXR 01/27/2024 showed extensive ANGEL PNA ?Right foot x-ray showed osteomyelitis in the amputated first metatarsal and second metatarsophalangeal joint ?WBC 10 ?Discontinue azithromycin and Rocephin -DC's vancomycin [01/25/2024?01/27/2024], Cefepime [01/24-01/28], DC'd levofloxacin [01/29/2024?02/01/2024] ?PICC line in place Plan: ?Continue PO Doxycycline [02/01/2024-] and IV Rocephin [02/02/2024-] -IV Rocephin and PO Doxycycline upon DC until 02/27/2024 ?Breathing treatments as needed -Wound care ?Referral to physical therapy ?General Surgery consulted (Dr. Serna), recommended no surgery at the moment and to continue antibiotics #JOSE MARIA on CKD ?Patient has some underlying CKD since last year with GFR in the high 30s to 40s -Baseline Cr 1.9 and was 2.8 on admission -Likely prerenal given heart failure and volume overload status ?BUN 86 and creatinine 2.7 today Plan: ?Avoid nephrotoxic agents ?Renally dose medications -Continue Diuresis -Nephrology consulted, appreciated recommendations ? Will continue to monitor #Scabies, resolved ? Patient stated that multiple residents in his rehab center were diagnosed with scabies. ?Patient has multiple excoriations on his entire back and bilateral upper extremities. Plan: ? Permethrin x 1 done on 01/26/2024 ? Contact precautions ?will continue to monitor #Normocytic normochromic anemia ?Patient has a Hx of normocytic anemia with Hgb 10.4 prior to admission - Hgb 7.6 Plan: ?Will transfuse if hemoglobin less than 7 ?Will continue to monitor #Hx of DM2 ?A1c 6.2 on 01/25/2024 Plan: ?ISS ? Accu-Cheks and hypoglycemia protocol ? Will continue to monitor #Hx of hyperlipidemia ?Triglycerides 227, cholesterol 148, LDL 86, HDL 17 on 10/05/2023 Plan: ?Continue atorvastatin 40 mg #Hx of HTN -Continue hydralazine 100mg every 8 hours Disposition: Patient seen in telemetry continuing Antibiotic for Sepsis,pending SNF placement. Diet: Cardiac and carb consistent GI prophylaxis: not indicated DVT prophylaxis: Heparin sc Code: Full LPatient's case was discussed with supervising attending physician Dr. Ramiro Schuler M.D. Internal Medicine PGY-3 Attending Provider Attestation/Addendum Ashley Goyal DO, attest that I was physically present for the brower portions of the service and evaluated the patient with the resident and I reviewed and discussed the case with the resident and agree with the resident's findings and plans of care as documented above Patient seen and evaluated this AM. No acute events overnight. He is pending auth for placement. B/l LE appear to have trace edema, much improved. He denies any shortness of breath, fevers, chils, nausea or vomiting. Continue with IV abx. Stable for discharge once auth is obtained
[2024-02-06] MEDS: INSULIN HUM REGULAR 1 UNIT/0.01 ML (PER UNIT) SC ×2 (12:03→21:19)
[2024-02-06] MEDS: ATORVASTATIN CALCIUM 20 MG TABLET 40 MG PO (21:18)
[2024-02-07] VITALS (9 sets, daily range): BP systolic 139–150; BP diastolic 75–85; PULSE 63–72; RESP 16–22; TEMP 36.2–36.7; O2SAT 95–97
[2024-02-07] MEDS: hydrALAZINE HCL 25 MG TABLET 100 MG PO ×2 (00:17→08:37)
[2024-02-07] MEDS: HEPARIN SOD INJ 5000 UNIT/ML VIAL SC (05:18)
[2024-02-07] MEDS: carVEDILOL 12.5 MG TABLET PO (08:37)
[2024-02-07] MEDS: cefTRIAXone 2 GM in SODIUM CHLORIDE 0.9% (P) 50 ML IV (08:38)
[2024-02-07] MEDS: INSULIN GLARGINE (Lantus) 5 UNIT/0.05 ML (PER 5 UNITS) 10 UNIT SC (08:38)
--- NOTE | 2024-02-07 08:48 | PD.RESPRO ---
Documentation for date of: 02/07/24 Subjective Subjective Interval history: Patient was seen at bedside this morning. No overnight events. Patient is feeling well and his lower extremity swelling is down to 2+. No other complaints at this time. Still pending SNF placement. Exam Vital Signs Temp Pulse Resp BP Pulse Ox O2 Del Method O2 Flow Rate 98.1 F 70 16 150/75 H 95 Room Air 4 02/07/24 08:00 02/07/24 08:37 02/07/24 08:00 02/07/24 08:37 02/07/24 08:00 02/07/24 08:00 02/04/24 12:39 FiO2 0 02/05/24 04:00 Narrative Exam General: A/O x3, no acute distress Eyes: PERRL, EOMI. Anicteric, vision grossly intact. Ears: No ear pain, no ear discharge, Hearing grossly intact. Nose: No nasal discharge. Mouth/Throat: Dry mucous membranes, no redness, no lesions. Neck: Short neck, non-tender, no cervical lymphadenopathy. Lungs: Clear ANGEL, No accessory muscle use. Cardio: Normal S1/S2, regular rhythm, no murmurs, no JVD Abdomen: Soft, non-tender, no palpable masses, peristalsis present, no guarding or rebound. Extremities: Symmetrical, no significant deformities, 2+ peripheral edema, non-tender, peripheral pulses present, R first toe amputation covered with clean dressing today. Skin: No rashes, no lesions, warm to touch. multiple hyperpigmented lesions in back. Neuro: No focal neurological deficits. motor and sensory intact Psych: Cooperative, appropriate mood and effect. Objective Labs 02/06/24 09:23 02/06/24 09:23 Labs: Laboratory Results - last 24 hr 02/06/24 09:23 WBC 11.1 H RBC 2.81 L Hgb 7.2 L Hct 23.1 L MCV 82 MCH 25.6 MCHC 31.2 RDW Std Deviation 44.2 H Plt Count 343 Neut % (Auto) 63 Lymph % (Auto) 20 [place] % (Auto) 10 Eos % (Auto) 5 Baso % (Auto) 0 Neut # (Auto) 7.0 Lymph # (Auto) 2.2 [place] # (Auto) 1.1 H Eos # (Auto) 0.6 H Baso # (Auto) 0.0 Immature Gran # (Auto) 0.12 H Absolute Nucleated RBC 0.00 Immature Gran % 1 H Nucleated RBC % 0 Sodium 134 L Potassium 4.3 D Chloride 101 Carbon Dioxide 25.4 Anion Gap 8 BUN 83 H Creatinine 2.7 H Estim Creat Clear Calc 29.1 L eGFR 26 L BUN/Creatinine Ratio 31 H Glucose 149 H Calculated Osmolality 296 H Calcium 8.5 Corrected Calcium 9.1 Total Bilirubin 0.2 L AST 29 ALT 45 Alkaline Phosphatase 169 H Total Protein 6.6 Albumin 3.3 L Globulin 3.3 Albumin/Globulin Ratio 1.0 L ABG Interpretation ABG results: 01/25/24 01/25/24 01/26/24 19:50 20:13 03:33 ABG pH Cancelled 7.36 7.36 ABG pCO2 Cancelled 39 39 ABG pO2 Cancelled 53 L* 77 L D ABG HCO3 Cancelled 22 22 ABG O2 Saturation Cancelled 87 L 96 ABG Base Excess Cancelled -3 -3 Quality Measures Quality Measures VTE prophylaxis Assessment & Plan Assessment Current Active Medications: Generic Name Dose Route Start Last Admin Trade Name Freq PRN Reason Stop Dose Admin Acetaminophen 650 mg 01/24/24 19:40 Acetaminophen 325 Mg Tablet PO 02/23/24 19:39 Q6H PRN Fever >101.5 Atorvastatin Calcium 40 mg 01/27/24 21:00 02/06/24 21:18 Atorvastatin Calcium 20 Mg Tablet PO 02/26/24 20:59 40 mg HS ANAMARIA Administration Bumetanide 2 mg 02/08/24 09:00 Bumetanide 0.5 Mg Tablet PO 03/09/24 08:59 QDAY ANAMARIA Carvedilol 12.5 mg 02/05/24 17:30 02/07/24 08:37 Carvedilol 12.5 Mg Tablet PO 03/06/24 17:29 12.5 mg BIDWM ANAMARIA Administration Dextrose 25 ml 01/24/24 19:42 Dextrose 50%-Water Inj 50 Ml Syringe IV 02/23/24 19:41 Q15MIN PRN BG 50-70 responsive npo pt Dextrose 50 ml 01/24/24 19:42 Dextrose 50%-Water Inj 50 Ml Syringe IV 02/23/24 19:41 Q15MIN PRN BG <50 OR BG <70 & pt unresponsive Glucagon 1 mg 01/24/24 19:42 Glucagon Inj 1 Mg Vial IM Q15MIN PRN BG <70, and no IV access Heparin Sodium (Porcine) 5,000 unit 01/24/24 22:00 02/07/24 05:18 Heparin Sod Inj 5000 Unit/Ml Vial SC 02/07/24 21:59 5,000 unit Q8HR ANAMARIA Administration Hydralazine HCl 100 mg 01/28/24 08:15 02/07/24 08:37 Hydralazine Hcl 25 Mg Tablet PO 02/27/24 08:14 100 mg Q8H ANAMARIA Administration Protocol Ceftriaxone Sodium 2 gm/ 50 mls @ 100 mls/hr 02/02/24 09:00 02/07/24 08:38 Sodium Chloride IV 02/09/24 08:59 100 mls/hr QDAY ANAMARIA Administration Insulin Glargine 10 unit 01/25/24 09:00 02/07/24 08:38 Insulin Glargine (Lantus) 5 Unit/0.05 Ml (Per 5 Units) SC 02/24/24 08:59 10 unit QDAY ANAMARIA Administration Insulin Human Regular 0 unit 01/24/24 21:00 02/07/24 07:30 Insulin Hum Regular 1 Unit/0.01 Ml (Per Unit) SC 02/23/24 20:59 Not Given ACHS [facility] Protocol Ipratropium [place] 0.5 mg 01/24/24 21:01 02/05/24 01:08 Ipratropium Rt 0.5 Mg/ 2.5 Ml Nebu INH 02/23/24 21:00 0.5 mg Q6HRRT PRN Administration SHORTNESS OF BREATH OR WHEEZE Protocol Levalbuterol HCl 1.25 mg 02/06/24 12:11 Levalbuterol Rt 1.25 Mg/0.5 Ml Nebu INH 02/24/24 00:59 Q6HRRT PRN WHEEZING Ondansetron HCl 4 mg 01/25/24 05:02 01/25/24 05:11 Ondansetron Inj 2 Mg/Ml Inj 2 Ml IV 02/24/24 05:01 4 mg Q6HR PRN Administration NAUSEA OR VOMITING Protocol Plan 63-year-old male with past medical history of HFpEF (EF 50 to 55%) DM2, hyperlipidemia, hypertension, prior osteomyelitis of right first toe s/p amputation was admitted to the hospital on 01/24/2024 for acute hypoxic respiratory failure secondary to acute decompensated heart failure exacerbation and sepsis likely secondary to pneumonia versus osteomyelitis. #Acute decompensated heart failure exacerbation #HFpEF (EF 50 to 55% 01/2024) #Acute hypoxic respiratory failure #Bilateral pleural effusions ?Patient came in with shortness of breath, bilateral lower extremity edema, and orthopnea ?Patient's last echo on 09/2023 showed an ejection fraction of 60 to 65% ?Chest x-ray 01/24/24 showed moderate heart failure ?BNP 671 -Echo showed EF 50-55% 01/2024 -Pleural fluid was transudative using lights criteria, most likely due to HF exacerbation. Plan: ?decreased Bumex to 2mg daily -Increased Carvedilol to 25mg BID ?Strict CHAR's ?Fluid restrictions 1500 mL daily -Daily weights ?Keep potassium above 4 and magnesium above 2 -Low sodium diet -Cardiology consulted (Dr. Soriano), appreciate recommendations ?Will continue to monitor #Sepsis secondary to osteomyelitis #Pneumonia #Osteomyelitis ?Initially patient met SIRS criteria 2 out of 4 with leukocytosis and tachypnea ?Chest x-ray showed bilateral pneumonia and pleural effusions -CXR 01/27/2024 showed extensive ANGEL PNA ?Right foot x-ray showed osteomyelitis in the amputated first metatarsal and second metatarsophalangeal joint ?WBC 11.1 ?Discontinue azithromycin and Rocephin -DC's vancomycin [01/25/2024?01/27/2024], Cefepime [01/24-01/28], DC'd levofloxacin [01/29/2024?02/01/2024] ?PICC line in place Plan: ?Continue PO Doxycycline [02/01/2024-] and IV Rocephin [02/02/2024-] -IV Rocephin and PO Doxycycline upon DC until 02/27/2024 ?Breathing treatments as needed -Wound care ?Referral to physical therapy ?General Surgery consulted (Dr. Serna), recommended no surgery at the moment and to continue antibiotics #JOSE MARIA on CKD ?Patient has some underlying CKD since last year with GFR in the high 30s to 40s -Baseline Cr 1.9 and was 2.8 on admission -Likely prerenal given heart failure and volume overload status ?BUN 83 and creatinine 2.7 yesterday, no labs today as we are alternating. Plan: ?Avoid nephrotoxic agents ?Renally dose medications -Continue Diuresis -Nephrology consulted, appreciated recommendations ? Will continue to monitor #Scabies, resolved ? Patient stated that multiple residents in his rehab center were diagnosed with scabies. ?Patient has multiple excoriations on his entire back and bilateral upper extremities. Plan: ? Permethrin x 1 done on 01/26/2024 ? Contact precautions ?will continue to monitor #Normocytic normochromic anemia ?Patient has a Hx of normocytic anemia with Hgb 10.4 prior to admission - Hgb 7.2 yesterday, stable Plan: ?Will transfuse if hemoglobin less than 7 ?Will continue to monitor #Hx of DM2 ?A1c 6.2 on 01/25/2024 Plan: ?ISS ? Accu-Cheks and hypoglycemia protocol ? Will continue to monitor #Hx of hyperlipidemia ?Triglycerides 227, cholesterol 148, LDL 86, HDL 17 on 10/05/2023 Plan: ?Continue atorvastatin 40 mg #Hx of HTN -Continue hydralazine 100mg every 8 hours Disposition: Patient seen in telemetry continuing Antibiotic for Sepsis,pending SNF placement. Diet: Cardiac and carb consistent GI prophylaxis: not indicated DVT prophylaxis: Heparin sc Code: Full Case disclosed with Attending Dr. Rubio and My senior Dr. Barrera PGY2 Henri Perkins PGY1
--- NOTE | 2024-02-07 09:14 | ESDS_ITS ---
<Statement entered by Ashley Rubio DO - 02/07/24 15:33> I, Ashley Rubio DO, attest that I was physically present for the brower portions of the service and evaluated the patient with the resident and I reviewed and discussed the case with the resident and agree with the resident's findings and plans of care as documented above Planned Discharge Date 02/07/24 DS: Providers Provider Date of admission: 01/24/24 19:40 Primary care physician: Physician No Primary/Family Admitting Provider: Randy Cruz MD Attending Provider on Admission: Ashley Rubio DO Consults: 01/25/24 11:13 Referral Physical Therapy Routine Comment: Physician Instructions: 01/25/24 11:29 Consult to General Surgery Routine Comment: Consulting Provider: Qian Serna 01/26/24 07:15 Referral Wound Care Routine Comment: Instructions: Chronic osteomyelitis amputated first metatarsal with ulcer 01/27/24 10:41 Consult to Cardiology Routine Comment: Consulting Provider: Kyle Soriano 01/29/24 10:35 Consult to Nephrology Stat Comment: Consulting Provider: Regan Main 02/01/24 10:49 Consult to Infectious Diseases Routine Comment: Consulting Provider: Tu Oliver Attending Provider on DC: Ashley Rubio DO Discharging Provider: Ashley Rubio DO DS: Diagnosis Problem List Completed Was Problem List Reviewed/Reconciled?: Yes Hospital Course Hospital Course Hospital course: 63-year-old male with past medical history of HFpEF (EF 50 to 55%) DM2, hyperlipidemia, hypertension, prior osteomyelitis of right first toe s/p amputation was admitted to the hospital on 01/24/2024 for acute hypoxic respiratory failure secondary to acute decompensated heart failure exacerbation and sepsis likely secondary to pneumonia versus osteomyelitis. In ED patient had chief complaint of shortness of breath or started 2 days prior to admission. Initially patient was tachycardic, hypoxic, hypotensive, and afebrile. Initial labs were relevant for leukocytosis, normocytic chronic anemia, JOSE MARIA, and elevated BNP. Initial imaging included chest x-ray which showed bilateral pneumonia as well as moderate heart failure, foot x-ray showed osteomyelitis of amputated first metatarsal and second metatarsal phalangeal joint, and EKG shows sinus rhythm. Patient was placed on IV antibiotics, but was not placed on any IV fluids as he was having clinical picture of acute compensated heart failure exacerbation. He was diuresed for his acute decompensated heart failure exacerbation. He was also treated for possible scabies given history of scabies in residents in rehab center he came from, therefore he's scabies free. Overnight, on second day of admission patient was not tolerating BiPAP he was placed on the ICU for observation given patient's increased respiratory distress and possible need of intubation. Patient did not need intubation and he was downgraded back to the medical floors on the next morning and general surgeon did not recommend surgery at this time for his osteomyelitis as he said that IV antibiotics and wound care would suffice. Patient's newly ordered echo showed an EF of 50 to 55% he was started on Bumex 2 mg twice daily as well as continue on carvedilol 6.25 mg which were later titrated to higher doses as tolerated by patient. Patient's JOSE MARIA which continue uptrending and was most likely given his history of diabetes with some underlying CKD nephrology was consulted. Nephrology recommended to continue IV diuresis as patient was most likely in an cardiorenal syndrome. Patient had PICC line placed by IR to continue his IV antibiotics as an outpatient and ID was consulted for appropriate antibiotic regimen as an outpatient. Throughout his hospital stay patient also received bilateral thoracentesis for pleural effusions which greatly improved his respiratory distress. Patient remained stable throughout his hospital stay with continue IV diuresis as well as antibiotics. Blood culture were negative. Patient's dry weight at the time of discharge was 85.5 kg and was stable enough to be discharged to a assisted facility for continuation of IV Rocephin and PO doxy for patient's osteomyelitis as well as diuresis with Bumex 5mg PO qday for his fluid overload status given his heart failure exacerbation. Discharge plan: Follow up with PCP within 1 week. Stop taking amlodipine and furosemide. Start taking bumetanide 1 tab daily, carvedilol 25 mg twice daily, hydralazine 100 mg every 8 hours. Continue other home medications as prescribed. Follow up with cardiology within 1-2 weeks. IV Rocephin 2g and PO Doxycycline 100 mg BID upon DC until 02/27/2024. Problem list: #Acute decompensated heart failure exacerbation #HFpEF (EF 50 to 55% 01/2024) #Acute hypoxic respiratory failure #Sepsis secondary to osteomyelitis #Bilateral pleural effusions #Community acquired pneumonia #Osteomyelitis #JOSE MARIA on CKD #Scabies, questionable, treated, resolved #Normocytic normochromic anemia #Hx of DM2 #Hx of hyperlipidemia #Hx of HTN Case disclosed with Attending Dr. Rubio and My senior Dr. Barrera PGY2. Henri Perkins PGY1 Status at Discharge Overall status at discharge: patient is progressing back to baseline Time Spent with Patient Time attestation: Total time spent providing and/or coordinating discharge services:>35 min Exam Vital Signs Temp Pulse Resp BP Pulse Ox O2 Del Method O2 Flow Rate 98.1 F 70 16 150/75 H 95 Room Air 4 02/07/24 08:00 02/07/24 08:37 02/07/24 08:00 02/07/24 08:37 02/07/24 08:00 02/07/24 08:00 02/04/24 12:39 FiO2 0 02/05/24 04:00 Narrative Exam General: A/O x3, no acute distress Eyes: PERRL, EOMI. Anicteric, vision grossly intact. Ears: No ear pain, no ear discharge, Hearing grossly intact. Nose: No nasal discharge. Mouth/Throat: Dry mucous membranes, no redness, no lesions. Neck: Short neck, non-tender, no cervical lymphadenopathy. Lungs: Clear ANGEL, No accessory muscle use. Cardio: Normal S1/S2, regular rhythm, no murmurs, no JVD Abdomen: Soft, non-tender, no palpable masses, peristalsis present, no guarding or rebound. Extremities: Symmetrical, no significant deformities, 2+ peripheral edema, non- tender, peripheral pulses present, R first toe amputation covered with clean dressing today. Skin: No rashes, no lesions, warm to touch. multiple hyperpigmented lesions in back. Neuro: No focal neurological deficits. motor and sensory intact Psych: Cooperative, appropriate mood and effect. Discharge Plan Plan Patient Disposition: Xfer Skilled Nsg Fac (SNF) Patient condition on transfer: Stable Care Plan Goals: Follow up with PCP within 1 week. Follow-up with Dr. Main in 1-2 weeks. Stop taking amlodipine and furosemide. Start taking bumetanide 1 tab daily, carvedilol 25 mg twice daily, hydralazine 100 mg every 8 hours. Continue other home medications as prescribed. Follow up with cardiology within 1-2 weeks. IV Rocephin 2g and PO Doxycycline 100 mg BID upon DC until 02/27/2024. Prescriptions/Referrals Prescriptions/Med Rec: New atorvastatin 20 mg Tablet 40 mg PO HS Qty: 60 0RF hydralazine 25 mg Tablet 100 mg PO Q8H Qty: 90 0RF bumetanide 2 mg tablet 2 mg PO QDAY Qty: 30 0RF carvedilol 25 mg tablet 25 mg PO BID Qty: 60 0RF Rx Instructions: must administer with a meal/food doxycycline hyclate 100 mg capsule 100 mg PO BID 21 Days Qty: 42 0RF Continued hydrocodone-acetaminophen 10-300 mg tablet 1 tab PO Q8H MDD 3 PRN (Reason: pain) Qty: 15 0RF Changed insulin glargine [Lantus Solostar U-100 Insulin] 100 unit/mL (3 mL) Insulin Pen 10 unit SUBCUT HS Qty: 15 0RF Discontinued amlodipine 10 mg tablet 10 mg PO QDAY Qty: 30 0RF clonidine HCl 0.1 mg Tablet 0.1 mg PO BID furosemide [Lasix] 20 mg tablet 40 mg PO TID Referrals: No Primary/Family,Physician [Primary Care Provider] - Patient/Caregiver Discharge Instructions Education Materials: Thoracentesis Dc, Osteomyelitis Dc Print Language: Kyrgyz Stand Alone Forms: Audrey Award Info., Patient Portal Info Letter Discharge Order Discharge Orders: Discharge (Routine); Ordered 02/07/24 Ordered By: Henri Perkins Quality Discharge Quality Measures VTE prophylaxis
--- NOTE | 2024-02-07 10:03 | PC.SS ---
Funeral Planner (EMMANUEL) Little received a phone call from [employer] Facing Machine Operator at [facility] who reported that patient's authorization was obtained Thursday night, and Yenny was notified. [facility] reported that patient can be accepted today, as long as, his IV antibiotics have been provided. EMMANUEL met with [employer] Resident Dr. Julio Perkins to discuss case. Dr. Julio Perkins placed discharge orders. EMMANUEL contacted [facility] and scheduled wheelchair transportation for 1200 (reference number: [id number]). EMMANUEL notified RNAnabela who reported that patient is pending a CBC for hemoglobin level. EMMANUEL notified patient of discharge plan.
--- NOTE | 2024-02-07 11:35 | ESPR_ITS ---
Documentation for date of: 02/07/24 Subjective Subjective Interval history: Mr. Sandoval is a 63 y/o M with PMHx significant for type 2 diabetes mellitus, hyperlipidemia, and hypertension who presents with shortness of breath and chest discomfort. Symptoms started approximately a week ago but acutely worsened overnight to the point where he would get short of breath after just a few steps, prompting him to come to the ED. Endorses orthopnea, PND, and bilateral lower extremity edema. Regarding his chest pain, describes it as substernal, pressure-like, worse with activity, and does not subside with rest. 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 Previously admitted and treated for osteomyelitis of right hallux on 09/2023 and underwent transmetatarsal amputation discharged with 7-day course of doxycycline that patient completed. Patient was hypertensive at 175/85 and hypoxic 86% on room air increased to 98% on 8 L oxy mask in the ED. Chest x-ray showed vascular congestion, bilateral pleural effusions. Patient received DuoNebs, ceftriaxone, and 40 mg Lasix in the ED. Patient admitted for acute hypoxic respiratory failure secondary to acute decompensated heart failure exacerbation and sepsis likely secondary to pneumonia versus osteomyelitis. Patient labs on admission showed BUN 56, creatinine 2.8, eGFR 25 compared to baseline BUN 40, baseline creatinine 1.9, baseline eGFR 39. Patient has been treated for presumptive prerenal JOSE MARIA due to volume overload with Bumex 2 mg IV twice daily, patient has not shown improvement in renal function. Urinalysis shows nephrotic range proteinuria 3+. Nephrology consulted for worsening JOSE MARIA on CKD despite diuretic treatment. Patient seen and examined on the floors. Patient resting in bed, appears mildly distressed and chronically ill. Patient has clear signs of fluid overload: Anasarca, crackles on lung auscultation. Held patient's amlodipine due to risk of increased edema. At time of exam labs showed BUN 61, creatinine 2.5, eGFR 28. Additional urine studies ordered. Renal ultrasound performed, showed moderate bilateral renal parenchymal scar formation, no hydronephrosis. 01/29: Patient seen and examined in telemetry. Patient appears mildly uncomfortable, ill appearing. Patient was anemic at 6.9 hemoglobin, repeat H&H showed hemoglobin 7.4. Patient remains severely fluid overloaded. BUN 61, creatinine 2.7, eGFR 26. Random urine creatinine?68, urine total protein 169, ratio 2.4. PTH 89. 24-hour urine collection pending. 1.9 L in, 1.5 L. 01/31/2024 patient currently seen in telemetry. Family at bedside.24-hour urine showed 2.5 g of protein per day. WBC 10, hemoglobin 7.1, platelets 351. Sodium 138, potassium 4.7, BUN 62, creatinine 2.7, GFR 26, phosphorus 4, ferritin 132, iron saturation 7, alk phos 142, albumin 3.1, B12 342, vitamin D23.5, PTH 89, urinalysis shows proteinuria. Patient had 2.1 L of urine. 02/03/2024 patient currently seen in telemetry. Resting comfortably. His shortness of breath is tad better. Blood pressure 144/79, heart rate 71. Hemoglobin 7.5. Sodium 136, potassium 4.4, BUN 66, creatinine 2.8, glucose 116, magnesium 1.9, LFTs normal, albumin 3. Patient anxious to go home. 02/04/2024: Patient seen in telemetry. Resting comfortably, sitting at edge of bed. Hemoglobin 7.6. Sodium 135, potassium 4.7, bicarb 25.4, BUN 75, creatinine 2.7, eGFR 26. 2.9 L urinary output. 02/05/2024: Patient seen on the medical floors. Resting comfortably, sitting at edge of bed. Patient has right arm PICC line. Hemoglobin 7.1. Sodium 135, potassium 4.8, bicarb 24.8, BUN 86, creatinine 2.7, eGFR 26. 1.9 L urinary output. Will need to follow-up with Dr. Main outpatient. 02/06/2024: Patient seen on the medical floors. Resting comfortably, sitting on edge of bed. Hemoglobin 7.2. Sodium 134, potassium 4.3, bicarb 25.4, BUN 83, creatinine 2.7, eGFR 26. 02/07/2024: Patient seen on the medical floors. Resting currently in bed. No new labs drawn. Patient planning for discharge today. Patient medically cleared and stable for discharge from nephrology perspective. Exam Vital Signs Temp Pulse Resp BP Pulse Ox O2 Del Method O2 Flow Rate 98.1 F 70 16 150/75 H 95 Room Air 4 02/07/24 08:00 02/07/24 08:37 02/07/24 08:00 02/07/24 08:37 02/07/24 08:00 02/07/24 08:00 02/04/24 12:39 FiO2 0 02/05/24 04:00 Narrative Exam PE: Gen: Well-developed and well-nourished. HEENT: NCAT, PERRLA, EOMI, MMM, anicteric conjunctivae. CVS: normal S1 and S2. RRR. No M/R/G. Resp: Lungs clear to auscultation bilaterally. Abd: Soft, nontender. MSK: Good ROM in BUE & BLE. Bilateral lower extremity edema with skin changes secondary to chronic PAD. Neuro: CN II-XII grossly intact. Strength 5/5 in BUE & BLE. Alert and oriented x3. Psych: appropriate mood and affect. Objective Labs 02/06/24 09:23 02/06/24 09:23 ABG Interpretation ABG results: 01/25/24 01/25/24 01/26/24 19:50 20:13 03:33 ABG pH Cancelled 7.36 7.36 ABG pCO2 Cancelled 39 39 ABG pO2 Cancelled 53 L* 77 L D ABG HCO3 Cancelled 22 22 ABG O2 Saturation Cancelled 87 L 96 ABG Base Excess Cancelled -3 -3 Quality Measures Quality Measures VTE prophylaxis Assessment & Plan Assessment Current Active Medications: Generic Name Dose Route Start Last Admin Trade Name Rehanq PRN Reason Stop Dose Admin Acetaminophen 650 mg 01/24/24 19:40 Acetaminophen 325 Mg Tablet PO 02/23/24 19:39 Q6H PRN Fever >101.5 Atorvastatin Calcium 40 mg 01/27/24 21:00 02/06/24 21:18 Atorvastatin Calcium 20 Mg Tablet PO 02/26/24 20:59 40 mg HS ANAMARIA Administration Bumetanide 2 mg 02/08/24 09:00 Bumetanide 0.5 Mg Tablet PO 03/09/24 08:59 QDAY ANAMARIA Carvedilol 12.5 mg 02/05/24 17:30 02/07/24 08:37 Carvedilol 12.5 Mg Tablet PO 03/06/24 17:29 12.5 mg BIDWM ANAMARIA Administration Dextrose 25 ml 01/24/24 19:42 Dextrose 50%-Water Inj 50 Ml Syringe IV 02/23/24 19:41 Q15MIN PRN BG 50-70 responsive npo pt Dextrose 50 ml 01/24/24 19:42 Dextrose 50%-Water Inj 50 Ml Syringe IV 02/23/24 19:41 Q15MIN PRN BG <50 OR BG <70 & pt unresponsive Glucagon 1 mg 01/24/24 19:42 Glucagon Inj 1 Mg Vial IM Q15MIN PRN BG <70, and no IV access Heparin Sodium (Porcine) 5,000 unit 01/24/24 22:00 02/07/24 05:18 Heparin Sod Inj 5000 Unit/Ml Vial SC 02/07/24 21:59 5,000 unit Q8HR ANAMARIA Administration Hydralazine HCl 100 mg 01/28/24 08:15 02/07/24 08:37 Hydralazine Hcl 25 Mg Tablet PO 02/27/24 08:14 100 mg Q8H ANAMARIA Administration Protocol Ceftriaxone Sodium 2 gm/ 50 mls @ 100 mls/hr 02/02/24 09:00 02/07/24 08:38 Sodium Chloride IV 02/09/24 08:59 100 mls/hr QDAY ANAMARIA Administration Insulin Glargine 10 unit 01/25/24 09:00 02/07/24 08:38 Insulin Glargine (Lantus) 5 Unit/0.05 Ml (Per 5 Units) SC 02/24/24 08:59 10 unit QDAY ANAMARIA Administration Insulin Human Regular 0 unit 01/24/24 21:00 02/07/24 07:30 Insulin Hum Regular 1 Unit/0.01 Ml (Per Unit) SC 02/23/24 20:59 Not Given ACHS [facility] Protocol Ipratropium Bailey 0.5 mg 01/24/24 21:01 02/05/24 01:08 Ipratropium Rt 0.5 Mg/ 2.5 Ml Nebu INH 02/23/24 21:00 0.5 mg Q6HRRT PRN Administration SHORTNESS OF BREATH OR WHEEZE Protocol Levalbuterol HCl 1.25 mg 02/06/24 12:11 Levalbuterol Rt 1.25 Mg/0.5 Ml Nebu INH 02/24/24 00:59 Q6HRRT PRN WHEEZING Ondansetron HCl 4 mg 01/25/24 05:02 01/25/24 05:11 Ondansetron Inj 2 Mg/Ml Inj 2 Ml IV 02/24/24 05:01 4 mg Q6HR PRN Administration NAUSEA OR VOMITING Protocol Plan 63 y/o M with PMHx significant for HFpEF (EF 50 to 55%) DM2, hyperlipidemia, hypertension, prior osteomyelitis of right first toe s/p amputation was admitted to the hospital on 01/24/2024 for acute hypoxic respiratory failure secondary to acute decompensated heart failure exacerbation and sepsis likely secondary to pneumonia versus osteomyelitis. #JOSE MARIA on CKD Patient seems to have combination of cardiorenal syndrome and nonnephrotic range proteinuria as a cause for significant anasarca. JOSE MARIA secondary to prerenal azotemia from CHF decompensation. Underlying chronic kidney disease from diabetic nephropathy. 24-hour urine showed 2.5 g of proteinuria. Had a long conversation with patient regarding diuretic dependent/resistant state and need for sequential ultrafiltration if no improvement in edema. Patient agreed. Currently his creatinine stable at 2.8. No need for emergency dialysis. He will be left with elevated BUN and creatinine to maintain a euvolemic state. Renal ultrasound showed moderate bilateral renal parenchymal scar formation, no hydronephrosis. Patient maintains good urinary output. Edema slowly improving. Plan: -Avoid nephrotoxic agents -Renally dose medications -Hold amlodipine -Strict I's and O's -Continue Diuresis-currently on 2 mg IV Bumex twice daily -Will continue to monitor -Follow-up with Dr. Main outpatient -Patient stable and cleared for discharge from nephrology perspective. #Acute decompensated heart failure exacerbation. #HFpEF (EF 50 to 55% 01/2024). #Acute hypoxic respiratory failure. On oxygen #Bilateral pleural effusions. #Sepsis likely secondary to pneumonia versus osteomyelitis-resolved #Pneumonia #Normocytic normochromic anemia #Hx of DM2 #Hx of hyperlipidemia #Hx of HTN Management as per primary team. Thank you for allow me to participate in the care of this patient. Plan of care discussed with attending Dr. Main. Les Godwin MD PGY-1 Attending Provider Attestation/Addendum Patient seen and examined with resident physician Dr. Godwin. Note reviewed, agree with findings and recommendations. Patient comfortable. He will be going to [facility] rehab. Will see him in 2 weeks. Spoke to [facility] nurse-check renal panel and CBC in 2 weeks.
[2024-02-07] MEDS: INSULIN HUM REGULAR 1 UNIT/0.01 ML (PER UNIT) SC (12:29)
== END 2024-02-07 12:55 | disposition skilled nursing facility (03) | DRG 720 ==
LOC: SERX 19:59 → SERHOLD 20:02 → S2NX 01-25 15:34 → S2SX 01-26 10:41 → S2NX 01-26 14:06 → S2SX 01-26 14:06 → S2NX 01-27 08:28 → S2SX 02-03 09:00 → S2NX 02-03 09:41 → S2SX 02-03 09:42 → S3SX 02-04 11:49 → S3NX 02-07 04:07
PROVIDERS: Internal Medicine; Internal Medicine Infectious Disease; Registered Nurse General Practice; Student in an Organized Health Care Education/Training Program; Admitting Provider Internal Medicine; Emergency Provider Emergency Medicine; Visit Provider Internal Medicine
DX: A41.9 Sepsis, unspecified organism (principal); I13.0 Hypertensive heart and chronic kidney disease with heart failure and stage 1 through stage 4 chronic kidney disease, or unspecified chronic kidney disease; E11.22 Type 2 diabetes mellitus with diabetic chronic kidney disease; J96.01 Acute respiratory failure with hypoxia; I50.33 Acute on chronic diastolic (congestive) heart failure; N17.9 Acute kidney failure, unspecified; J18.9 Pneumonia, unspecified organism; E78.5 Hyperlipidemia, unspecified; B86 Scabies; E11.69 Type 2 diabetes mellitus with other specified complication; D63.1 Anemia in chronic kidney disease; J91.8 Pleural effusion in other conditions classified elsewhere; M86.671 Other chronic osteomyelitis, right ankle and foot; N18.4 Chronic kidney disease, stage 4 (severe); E11.621 Type 2 diabetes mellitus with foot ulcer; L97.519 Non-pressure chronic ulcer of other part of right foot with unspecified severity; B95.7 Other staphylococcus as the cause of diseases classified elsewhere; E87.5 Hyperkalemia; Z91.199 Patient's noncompliance with other medical treatment and regimen due to unspecified reason; Z89.411 Acquired absence of right great toe; Z79.4 Long term (current) use of insulin; Z79.899 Other long term (current) drug therapy; Z75.1 Person awaiting admission to adequate facility elsewhere
CPT/HCPCS: 36415; 36600; 71045; 73630; 73718; 76770; 80048; 80053; 80202; 80307; 81001; 82040; 82150; 82270; 82306; 82436; 82570; 82607; 82728; 82746; 82803; 82945; 83036; 83540; 83550; 83605; 83615; 83735; 83880; 83970; 84100; 84133; 84145; 84156; 84157; 84300; 84484; 84540; 85014; 85018; 85025; 85610; 85652; 85730; 86140; 86331; 86480; 86635; 86850; 86900; 86901; 87040; 87070; 87075; 87077; 87081; 87186; 87205; 87400; 87449; 87811; 89051; 93005; 93225; 93306; 94640; 94660; 94762; 96365; 96372; 96375; 97162; 99285; A9270; C1729; C1751; C1894; J0692; J0696; J1643; J1815; J1940; J1956; J2405; J3370; J3475; J3490; J7050; Q0138; Q5105; J1644; J1920

== ENCOUNTER 2024-03-15 11:08 | Emergency (ER) | payer MEDICAID, SELFPAY ==
[2024-03-15] VITALS (8 sets, daily range): BP systolic 140–196; BP diastolic 75–103; PULSE 59–96; RESP 16–20; TEMP 36.4–36.8; O2SAT 92–97; BMI 33.2
--- NOTE | 2024-03-15 11:29 | EKG_ITS ---
[facility] Test Date: 2024-03-15 Pat Name: VALERIE BRUNSON Department: Room: - Gender: Male Filament Tester: : 1960 Requested By: Colin Nelson (LOU) Order Number: [id number] Reading MD: Colin Nelson (BROOMMAKING SUPERVISOR) Measurements Intervals [place] Rate: 63 P: 22 WV: 153 QRS: 17 QRSD: 93 T: 30 QT: 441 QTc: 453 Interpretive Statements SINUS RHYTHM Compared to ECG 01/24/2024 17:22:40 Short WV interval no longer present /store/S0/[id number].pdf
--- NOTE | 2024-03-15 11:29 | XR_ITS ---
Examination: CT brain head without contrast. 2-D sagittal coronal reconstructions Date and time of exam:March 15, 2024 1135 hrs. Indications: Onset focal neurologic deficit generalized head pain beginning yesterday stroke symptoms CTDI: vol (mGy):52.1 DLP: (mGycm):1049 Technique: Multiple CT axial sections of the brain have been obtained, 5 mm slice thickness. Contrast has not been administered. 2-D sagittal, coronal reconstructions have been obtained Low dose protocols were performed. One or more of the following dose reduction techniques were used; automated exposure control, adjustment of the mA and/or KV according to patient size, use of iterative reconstruction technique. Findings: No significant ventricular enlargement. Intra-axial or extra-axial hemorrhage density is not seen. No mass effect or midline shift Basal cisterns are not remarkable. Fourth ventricle is midline. Cranial vault intact. Impression: Negative for acute hemorrhage, mass effect or midline shift As clinically warranted, consider brain MRI MRA without contrast, stroke protocol, follow-up
--- NOTE | 2024-03-15 11:34 | PC.NURSE ---
PT TO CT
[2024-03-15 12:04] LABS: Basophils % (Auto) 0 % (0-2.5); Eosinophils # (Auto) 0.1 Thou/mm3 (0.0-0.5); Eosinophils % (Auto) 2 % (0-10); Hematocrit 30.6 % (41.0-53.0); Hemoglobin 9.2 g/dL (13.5-16.0); Immature Granulocytes % (Auto) 0 % (0-0); Immature Granulocytes Auto 0.01 Thou/mm3 (0.00-0.00); Lymphocytes # (Auto) 1.3 Thou/mm3 (1.0-4.8); Lymphocytes % (Auto) 19 % (10-50); Mean Corpuscular HGB Conc 30.1 g/dl (31.0-37.0); Mean Corpuscular Hemoglobin 26.1 pg (25.0-35.0); Mean Corpuscular Volume 87 fL (80-100); Monocytes # (Auto) 0.5 Thou/mm3 (0.0-0.8); Monocytes % (Auto) 7 % (0-12); Neutrophils # (Auto) 4.8 Thou/mm3 (1.8-7.7); Neutrophils % (Auto) 71 % (37-80); Nucleated Red Blood Cell % 0 /100 WBC (0); Platelet Count 246 Thou/mm3 (140-440); RDW Standard Deviation 57.7 fL (35.1-43.9); Red Blood Count 3.53 Miln/mm3 (4.50-5.90); White Blood Count 6.7 Thou/mm3 (3.8-10.6)
--- NOTE | 2024-03-15 12:08 | PC.NURSE ---
pt refused to be connected onto the monitor. BULLION WEIGHER attempted to connect pt twice and patient refused. Nurse notified
--- NOTE | 2024-03-15 12:11 | EDNOTE_ITS ---
ED General RME/HPI General Chief complaint: Shortness of Breath/Dyspnea Stated complaint: High blood pressure, ALMS worse this morning Time Seen by Provider: 03/15/24 11:32 Arrival date/time: 03/15/24 11:08 CC: Elevated blood pressure HPI patient states that he is had difficulty managing his blood pressure since he was discharged from this facility in January 2024 for pneumonia versus osteomyelitis. However acquaintance at bedside states the patient has been mildly altered for the past 2-1/2 days with slurred speech. She states he likes to talk but she has noticed a change in his speech being more slurred. The subject matter is unchanged. Patient also notes, when asked, that his belly has gotten larger. When asked about a drinking history he states years ago and denies drinking every day. Currently patient denies any chest pain shortness of breath or difficulty breathing. Patient has also commented on the weight gain, and the increase in the incresed size of his abdomen. Related Data Previous Rx's ?Medication ?Instructions ?Recorded hydrocodone 10 mg-acetaminophen 1 tab PO Q8H PRN pain #15 tabs 10/09/23 300 mg tablet atorvastatin 20 mg tablet 40 mg (2 x 20 mg) PO HS #60 tabs 02/03/24 hydralazine 25 mg tablet 100 mg (4 x 25 mg) PO Q8H #90 tabs 02/03/24 bumetanide 2 mg tablet 2 mg PO QDAY #30 tabs 02/07/24 carvedilol 25 mg tablet 25 mg PO BID #60 tabs 02/07/24 insulin glargine 100 unit/mL (3 10 unit (0.1 mL) subcut HS #15 mL 02/07/24 mL) subcutaneous pen (Lantus Solostar U-100 Insulin) Allergies Allergy/AdvReac Type Severity Reaction Status Date / Time No Known Allergies Allergy Verified 06/19/22 16:16 Review of Systems Review of Systems Narrative Review of Systems: GEN: No fever, no chills, no weight loss EYES: No discharge, no visual changes, no pain HEENT: No ear pain, no congestion, no sore throat PULM: No shortness of breath, no cough, no congestion CV: No chest pain, no dyspnea on exertion, no palpitations GI: No nausea, no vomiting, no diarrhea, no pain, no constipation : No frequency, no urgency, no dysuria MUSC/SKEL: No joint pain, no back pain SKIN: No rash PSYCH: No hallucinations, no depression HEME/LYMPH: No easy bleeding or bruising tendencies NEURO: No weakness, no headache Past Medical History Past Medical History NEUROLOGIC: Negative Seizures CARDIAC: Positive Edema, Cellulitis and Hypertension; Negative Cardiac Disorders or Congestive Heart Failure RESPIRATORY: Negative Chronic Obstructive Pulmonary Disease (COPD) or Asthma GENITOURINARY: Negative Renal Disease ENDOCRINE: Positive Diabetes Mellitus Type 2; Negative Diabetes Mellitus Type 1 HEMATOLOGIC: Negative Sickle Cell Disease OTHER HISTORY: Positive Hospitalization; Negative Falls, Blood Transfusions, Blood Transfusion Reaction or Anesthesia Reactions Surgical History SURGICAL: Positive Amputation (Right first toe) Social History SMOKING STATUS: Never smoker SUBSTANCE USE: does not use ED Exam Narrative Physical exam: [General: Obese not in any acute distress Head normocephalic HEENT: Eyes pupils are PERRLA EOMs are intact mouth pink dry membranes uvula is midline swallow symmetrical phonation is normal. All other subsystems of HEENT are within acceptable limits Neck is supple nontender, no JVD Chest equal chest rise nontender to palpation Respiratory: Clear to auscultation no wheezes crackles or rubs CV: Rate rhythm is regular no murmurs rubs or clicks Abdomen is distended secondary to body habitus soft nontender no masses positive bowel sounds all 4 quadrants Back: No CVA tenderness no spinous process tenderness from cervical spine thoracic and lumbar spine Skin: Cachectic versus jaundice, intact no petechiae rash induration ulceration or crepitus Extremities: Moving all extremity against resistance cap refill less than 2 seconds neurosensory intact Neuro: Awake alert oriented x3 Glascow coma 15 no focal deficits] Course Quality Measures none Orders Category Date Time Status Investment Underwriter NOW Care 03/15/24 11:29 Active EKG (ED ONLY) *Do not use* NOW Care 03/15/24 11:29 Completed Insert IV NOW Care 03/15/24 11:[address] head/brain wo con Stat Exams 03/15/24 11:29 Completed EKG (ED Only) Stat Exams 03/15/24 11:29 Ordered US abdomen limited Stat Exams 03/15/24 13:26 Completed Alcohol, Blood Medical Stat Lab 03/15/24 11:55 Completed Ammonia Stat Lab 03/15/24 11:55 Completed B-Type Natriuretic Peptide Stat Lab 03/15/24 11:55 Completed CBC Stat Lab 03/15/24 11:55 Completed Comprehensive Metabolic Panel Stat Lab 03/15/24 11:55 Completed Drug Screen,Urine Stat Lab 03/15/24 11:29 Ordered Magnesium Stat Lab 03/15/24 11:55 Completed Partial Thromboplastin Time Stat Lab 03/15/24 11:55 Completed Prothrombin Time with INR Stat Lab 03/15/24 11:55 Completed Troponin I Stat Lab 03/15/24 11:55 Completed Urinalysis Stat Lab 03/15/24 11:29 Ordered hydrALAZINE INJ [Apresoline Inj] Med 03/15/24 12:14 Discontinued 20 mg IV X1 ONE Vital Signs Vital signs: Vital Signs Temperature 97.7 F 03/15/24 11:25 Pulse Rate 64 03/15/24 11:25 Respiratory Rate 16 03/15/24 11:25 Blood Pressure 173/85 H 03/15/24 11:25 Pulse Oximetry (%) 97 03/15/24 11:25 Oxygen Delivery Method Room Air 03/15/24 11:25 [facility] Patient data External records reviewed:: [facility] previous records Clinical information provided by:: patient and friend Social determinants that could affect healthcare access:: other (specify) (Possible history of alcohol abuse) Patient has the following chronic illnesses:: Hypertension hyperlipidemia diabetes recent toe amputation osteomyelitis How is presenting disease/condition affected by chronic disease/condition?: u neffected by Evaluation data The following diagnostics were reviewed and interpreted by me:: lab results, radiology exam(s) and EKG tracing(s) Lab and/or radiology exams considered but not ordered:: EKG performed at 1221 shows a ventricular rate of 6 3 MN interval 153 QRS of 93 QTc of 448 this normal sinus rhythm. CBC shows no leukocytosis chronic but stable anemia no thrombocytopenia Coags within acceptable limits CMP shows a sodium 139 potassium of 5.4 chloride of 109 CO2 22.1 BUN of 16 creatinine of 2.6 glucose of 207 please note her BUN and creatinine are unchanged on multiple previous blood draws. Mag of 2.5 Alk phos of 301 no other transaminitis or T. bili elevation Troponin of less than 0.020 BNP of 1205. Interpretation Summary: Currently blood pressure at 1500 is 140/70. Patient be discharged home. Patient refused to give urine. He is afebrile and nontoxic-appearing not in any acute distress. Medications Medications considered but not ordered:: None Medication administrations:: Medication Administration History Discontinued Medications Hydralazine HCl (Hydralazine Inj 20 Mg/Ml Vial) 20 mg IV X1 ONE Stop: 03/15/24 12:15 Last Admin: 03/15/24 12:22 Dose: 20 mg Documented By: MAHESH None Consultations Consultation(s) initiated? (list below): No Diagnosis Differential Diagnosis ED Complaint MDM: Hypertension CKD anemia Most likely diagnosis given after review of the tests above:: Hypertension CKD anemia Admission Indicated Admission indicated?: not indicated Explain why admission is indicated or not indicated:: Stable for outpatient follow-up Admission Request Was there a request for admission?: No Disposition Plan Disposition Plan: Discharge Discharge Attestation Discharge Attestation: The patient and all family members were given an opportunity to ask questions and understood the discharge instructions. Discharge instructions specifically effects, indications for sooner follow up or return to the emergency department, and the expected course of current diagnosis. Patient condition: Stable Medical Decision Making Differential Diagnosis Differential Diagnosis: Hypertension CKD anemia Lab Data 03/15/24 11:55 03/15/24 11:55 Labs: Lab Results 03/15/24 Range/Units 11:55 WBC 6.7 (3.8-10.6) Thou/mm3 RBC 3.53 L (4.50-5.90) Miln/mm3 Hgb 9.2 L (13.5-16.0) g/dL Hct 30.6 L (41.0-53.0) % MCV 87 (80-100) fL MCH 26.1 (25.0-35.0) pg MCHC 30.1 L (31.0-37.0) g/dl RDW Std Deviation 57.7 H (35.1-43.9) fL Plt Count 246 D (140-440) Thou/mm3 Neut % (Auto) 71 (37-80) % Lymph % (Auto) 19 (10-50) % [place] % (Auto) 7 (0-12) % Eos % (Auto) 2 (0-10) % Baso % (Auto) 0 (0-2.5) % Neut # (Auto) 4.8 (1.8-7.7) Thou/mm3 Lymph # (Auto) 1.3 (1.0-4.8) Thou/mm3 [place] # (Auto) 0.5 (0.0-0.8) Thou/mm3 Eos # (Auto) 0.1 (0.0-0.5) Thou/mm3 Baso # (Auto) 0.0 (0.0-0.2) Thou/mm3 Immature Gran # (Auto) 0.01 H (0.00-0.00) Thou/mm3 Absolute Nucleated RBC 0.00 (0.00-0.00) Thou/mm3 Immature Gran % 0 (0-0) % Nucleated RBC % 0 (0) /100 WBC PT 11.4 (9.0-12.2) Seconds INR 1.0 (0.9-1.3) APTT 27.5 (22.0-36.0) Seconds Sodium 139 (136-145) mMol/L Potassium 5.4 H (3.4-5.1) mMol/L Chloride 109 H (98-107) mMol/L Carbon Dioxide 22.1 (20.0-31.0) mMol/L Anion Gap 8 (7-16) BUN 68 H (9-23) mg/dL Creatinine 2.6 H (0.6-1.3) mg/dL Estim Creat Clear Calc 34.2 L (>60) mL/min eGFR 27 L (60 - ) See Note BUN/Creatinine Ratio 26 H (12-20) Ratio Glucose 207 H (74-106) mg/dL Calculated Osmolality 303 H (275-295) Calcium 8.7 (8.3-10.6) mg/dL Corrected Calcium 8.8 (8.5-10.1) mg/dL Magnesium 2.5 (1.6-2.6) mg/dL Total Bilirubin 0.3 (0.3-1.2) mg/dL AST 24 (0-34) U/L ALT 65 H (10-49) U/L Alkaline Phosphatase 301 H (46-116) U/L Ammonia 15 (11-32) uMol/L Troponin I < 0.020 (0.0-0.045) ng/mL B-Natriuretic Peptide 1205 H* (0-100) pg/mL Total Protein 7.3 (5.7-8.2) gm/dL Albumin 3.9 (3.4-4.8) gm/dL Globulin 3.4 (2.3-3.5) gm/dL Albumin/Globulin Ratio 1.1 L (1.2-2.2) Ethyl Alcohol < 3.0 (0-10.0) mg/dL Discharge Plan Plan Patient Disposition: HOME (Self Care) Patient condition on transfer: Stable Prescriptions/Referrals Prescriptions/Med Rec: No Action hydrocodone-acetaminophen 10-300 mg tablet 1 tab PO Q8H MDD 3 PRN (Reason: pain) Qty: 15 0RF atorvastatin 20 mg Tablet 40 mg PO HS Qty: 60 0RF hydralazine 25 mg Tablet 100 mg PO Q8H Qty: 90 0RF bumetanide 2 mg tablet 2 mg PO QDAY Qty: 30 0RF carvedilol 25 mg tablet 25 mg PO BID Qty: 60 0RF Rx Instructions: must administer with a meal/food insulin glargine [Lantus Solostar U-100 Insulin] 100 unit/mL (3 mL) Insulin Pen 10 unit SUBCUT HS Qty: 15 0RF Referrals: No Primary/Family,Physician [Primary Care Provider] - In 1 week Vik Lopez MD [Physician] - In 1 week Problem List Clinical Impression: Hypertension, CKD (chronic kidney disease), Anemia Patient/Caregiver Discharge Instructions Education Materials: Anemia, CKD Dc, Controlling High Blood Pressure Print Language: Burkinan Stand Alone Forms: Audrey Award Info., Patient Portal Info Letter, Work/School Release PA/MICRO COMPUTER DATA PROCESSOR Supervising Physician PA/MICRO COMPUTER DATA PROCESSOR Supervising Physician: Parviz Ricks ENP
[2024-03-15 12:17] LABS: Partial Thromboplastin Time 27.5 Seconds (22.0-36.0); Prothrombin Time 11.4 Seconds (9.0-12.2)
[2024-03-15 12:19] LABS: Ammonia 15 uMol/L (11-32)
--- NOTE | 2024-03-15 12:20 | PC.NURSE ---
pt brought in by friend for high bp and confusion. per friend pt had high bp last night and she gave him his medication. friend said this am pt was up before her and had his morning coffee. when she was speaking with him she states that he seems a little confused and she noticed some left side weakness and slight left side facial droop. 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 no facial droop noted at this time. pt answering questions and following commands without difficulty. pt on cc monitor.
[2024-03-15 12:22] LABS: Alanine Aminotransferase 65 U/L (10-49); Albumin, Serum 3.9 gm/dL (3.4-4.8); Albumin/Globulin Ratio 1.1 (1.2-2.2); Alcohol, Blood Medical < 3.0 mg/dL (0-10.0); Alkaline Phosphatase 301 U/L (46-116); Anion Gap 8 (7-16); Aspartate Amino Transferase 24 U/L (0-34); B-Type Natriuretic Peptide 1205 pg/mL (0-100); BUN/Creatinine Ratio 26 Ratio (12-20); Bilirubin,Total 0.3 mg/dL (0.3-1.2); Blood Urea Nitrogen 68 mg/dL (9-23); Calcium 8.7 mg/dL (8.3-10.6); Calcium (Corrected) 8.8 mg/dL (8.5-10.1); Carbon Dioxide 22.1 mMol/L (20.0-31.0); Chloride 109 mMol/L (98-107); Creatinine (Component) 2.6 mg/dL (0.6-1.3); Estimated Creatinine Clearance 34.2 mL/min (>60); Globulin 3.4 gm/dL (2.3-3.5); Glucose 207 mg/dL (74-106); Magnesium 2.5 mg/dL (1.6-2.6); Osmolality,Calculated 303 (275-295); Potassium 5.4 mMol/L (3.4-5.1); Sodium 139 mMol/L (136-145); Total Protein 7.3 gm/dL (5.7-8.2); Troponin I < 0.020 ng/mL (0.0-0.045); eGFR 27 See Note
[2024-03-15] MEDS: hydrALAZINE INJ 20 MG/ML VIAL IV (12:22)
--- NOTE | 2024-03-15 13:26 | XR_ITS ---
Examination: Abdomen sonogram, Limited Date and time of exam: March 15, 2024 1331 hrs. Indications: Abdominal distention this week Technique: Real-time padgett scale transabdominal sonographic images of the upper abdomen obtained. Findings: Minimal free fluid in the right lower abdomen Impression: Minimal free fluid in the right lower abdomen
== END 2024-03-15 16:25 | disposition home or self-care (01) ==
PROVIDERS: Nurse Practitioner Primary Care; Emergency Provider Emergency Medicine
DX: I12.9 Hypertensive chronic kidney disease with stage 1 through stage 4 chronic kidney disease, or unspecified chronic kidney disease (principal); N18.9 Chronic kidney disease, unspecified; D63.1 Anemia in chronic kidney disease
CPT/HCPCS: 36415; 70450; 76705; 80053; 80307; 80320; 81001; 82140; 83735; 83880; 84484; 85025; 85610; 85730; 93005; 99284; J0360; G0480

== ENCOUNTER 2024-04-04 14:10 | Inpatient (IN) | payer MEDICAID, SELFPAY ==
[2024-04-04] VITALS (12 sets, daily range): BP systolic 155–197; BP diastolic 86–113; PULSE 63–72; RESP 16–93; TEMP 35.9–36.8; O2SAT 94–100; BMI 35.0
--- NOTE | 2024-04-04 15:18 | XR_ITS ---
Examination: PA chest single view TECHNIQUE: Upright PA chest single view Exam date and time: April 04, 2024 1542 hours Comparison February 03, 2024 INDICATIONS: Chest pain today. FINDINGS: Mild chronic heart failure Mild enlargement cardiac contour Prominent vascular congestion Pneumonia right base Large right moderate left pleural effusions Prominent osteopenia IMPRESSION: Mild heart failure Pneumonia right base Large right moderate left pleural effusions
--- NOTE | 2024-04-04 15:19 | PD.EDRME ---
Rapid Medical Screening Exam [facility] [place] Arrival date/time: 04/04/24 14:10 63-year-old male presents emergency department complaints of shortness of breath, possible fluid overload patient states he feels fluid from his abdomen down to his legs swollen testicles. I have greeted and performed a focused initial assessment of this patient. Initial appropriate labs ordered at this time. A comprehensive ED assessment and evaluation of the patient and analysis of all test and completion of medical decision making process will be conducted by additional ED provider. Chief Complaint: General Adult/Misc Complain Vital signs: Vital Signs Temperature 97.8 F 04/04/24 15:11 Pulse Rate 72 04/04/24 15:11 Respiratory Rate 19 04/04/24 15:11 Blood Pressure 170/86 H 04/04/24 15:11 Pulse Oximetry (%) 97 04/04/24 15:11 Oxygen Delivery Method Room Air 04/04/24 15:11
[2024-04-04 16:01] LABS: Basophils % (Auto) 0 % (0-2.5); Eosinophils # (Auto) 0.3 Thou/mm3 (0.0-0.5); Eosinophils % (Auto) 4 % (0-10); Hemoglobin 9.8 g/dL (13.5-16.0); Immature Granulocytes % (Auto) 1 % (0-0); Immature Granulocytes Auto 0.04 Thou/mm3 (0.00-0.00); Lymphocytes # (Auto) 1.3 Thou/mm3 (1.0-4.8); Lymphocytes % (Auto) 16 % (10-50); Mean Corpuscular HGB Conc 30.6 g/dl (31.0-37.0); Mean Corpuscular Hemoglobin 26.6 pg (25.0-35.0); Mean Corpuscular Volume 87 fL (80-100); Monocytes # (Auto) 0.8 Thou/mm3 (0.0-0.8); Monocytes % (Auto) 10 % (0-12); Neutrophils # (Auto) 5.7 Thou/mm3 (1.8-7.7); Neutrophils % (Auto) 70 % (37-80); Nucleated Red Blood Cell % 0 /100 WBC (0); Platelet Count 234 Thou/mm3 (140-440); RDW Standard Deviation 59.6 fL (35.1-43.9); Red Blood Count 3.69 Miln/mm3 (4.50-5.90); White Blood Count 8.1 Thou/mm3 (3.8-10.6)
[2024-04-04 16:28] LABS: Alanine Aminotransferase 28 U/L (10-49); Albumin, Serum 3.4 gm/dL (3.4-4.8); Alkaline Phosphatase 234 U/L (46-116); Anion Gap 9 (7-16); Aspartate Amino Transferase 15 U/L (0-34); B-Type Natriuretic Peptide 1117 pg/mL (0-100); BUN/Creatinine Ratio 20 Ratio (12-20); Bilirubin,Total 0.3 mg/dL (0.3-1.2); Blood Urea Nitrogen 54 mg/dL (9-23); Calcium 8.1 mg/dL (8.3-10.6); Calcium (Corrected) 8.6 mg/dL (8.5-10.1); Carbon Dioxide 18.2 mMol/L (20.0-31.0); Chloride 113 mMol/L (98-107); Creatinine (Component) 2.7 mg/dL (0.6-1.3); Estimated Creatinine Clearance 34.9 mL/min (>60); Globulin 3.3 gm/dL (2.3-3.5); Glucose 154 mg/dL (74-106); Lipase 27 U/L (12-53); Magnesium 2.7 mg/dL (1.6-2.6); Osmolality,Calculated 297 (275-295); Sodium 140 mMol/L (136-145); Total Protein 6.7 gm/dL (5.7-8.2); Troponin I < 0.020 ng/mL (0.0-0.045); eGFR 26 See Note
[2024-04-04 16:36] LABS: Potassium 6.5 mMol/L (3.4-5.1)
[2024-04-04 16:44] LABS: Partial Thromboplastin Time 27.3 Seconds (22.0-36.0)
--- NOTE | 2024-04-04 16:45 | PC.NURSE ---
Patient from lobby and taken to room 1 with c/o abdominal swelling from abdomen down to la. legs and feet, patient noted to have moderate swelling, to abdomen, taut and slight redness noted, patient also states he is sob, no c/o cough, denies pain, Parviz SHEEP CLIPPER at bedside, new orders received.
--- NOTE | 2024-04-04 16:48 | PC.NURSE ---
Called RT for nebulizer treatment.
[2024-04-04] MEDS: ALBUTEROL RT 2.5 MG/0.5 ML NEBU INH (16:56)
--- NOTE | 2024-04-04 16:57 | EDNOTE_ITS ---
ED General RME/HPI General Chief complaint: General Adult/Misc Complain Stated complaint: SWELLING TO BODY,DIFF BREATHING X 2 WEEKS Time Seen by Provider: 04/04/24 15:19 Arrival date/time: 04/04/24 14:10 CC: Shortness of breath HPI patient presents the ER with 3 days of shortness of breath with no chest pain. Patient states he is taking all his medications as prescribed has a history of CKD. RME / HPI RME / HPI narrative: 04/04/24 14:10 63-year-old male presents emergency department complaints of shortness of breath, possible fluid overload patient states he feels fluid from his abdomen down to his legs swollen testicles. I have greeted and performed a focused initial assessment of this patient. Initial appropriate labs ordered at this time. A comprehensive ED assessment and evaluation of the patient and analysis of all test and completion of medical decision making process will be conducted by additional ED provider. Related Data Home Medications ?Medication ?Instructions ?Recorded ?Confirmed clonidine HCl 0.1 mg tablet 0.1 mg PO BID 04/05/24 04/05/24 dulaglutide 1.5 mg/0.5 mL 1.5 mg subcut QWEEK 04/05/24 04/05/24 [facility] Previous Rx's ?Medication ?Instructions ?Recorded hydrocodone 10 mg-acetaminophen 1 tab PO Q8H PRN pain #15 tabs 10/09/23 300 mg tablet atorvastatin 20 mg tablet 40 mg (2 x 20 mg) PO HS #60 tabs 02/03/24 hydralazine 25 mg tablet 100 mg (4 x 25 mg) PO Q8H #90 tabs 02/03/24 bumetanide 2 mg tablet 2 mg PO QDAY #30 tabs 02/07/24 carvedilol 25 mg tablet 25 mg PO BID #60 tabs 02/07/24 Allergies Allergy/AdvReac Type Severity Reaction Status Date / Time No Known Allergies Allergy Verified 04/04/24 14:15 Review of Systems Review of Systems Narrative Review of Systems: GEN: No fever, no chills, no weight loss EYES: No discharge, no visual changes, no pain HEENT: No ear pain, no congestion, no sore throat PULM: + shortness of breath, no cough, no congestion CV: No chest pain, no dyspnea on exertion, no palpitations GI: No nausea, no vomiting, no diarrhea, no pain, no constipation : No frequency, no urgency, no dysuria MUSC/SKEL: No joint pain, no back pain SKIN: No rash PSYCH: No hallucinations, no depression HEME/LYMPH: No easy bleeding or bruising tendencies NEURO: No weakness, no headache Past Medical History Past Medical History NEUROLOGIC: Negative Seizures CARDIAC: Positive Hypercholesterolemia, Edema, Cellulitis and Hypertension; Negative Cardiac Disorders or Congestive Heart Failure RESPIRATORY: Negative Chronic Obstructive Pulmonary Disease (COPD) or Asthma GENITOURINARY: Negative Renal Disease ENDOCRINE: Positive Diabetes Mellitus Type 2; Negative Diabetes Mellitus Type 1 HEMATOLOGIC: Negative Sickle Cell Disease OTHER HISTORY: Positive Hospitalization; Negative Falls, Blood Transfusions, Blood Transfusion Reaction or Anesthesia Reactions Surgical History SURGICAL: Positive Amputation (r big toe) Social History SMOKING STATUS: Never smoker SUBSTANCE USE: does not use ED Exam Narrative Physical exam: [General: Obese not in mild discomfort but not in any acute distress Head normocephalic HEENT: Within acceptable limits Neck is supple nontender Chest equal chest rise nontender to palpation Respiratory: Clear to auscultation no wheezes crackles or rubs CV: Rate rhythm is regular no murmurs rubs or clicks Abdomen is grossly distended secondary to fluid overload. Pannus is firm with pitting. Back: No CVA tenderness no spinous process tenderness from cervical spine thoracic and lumbar spine Skin: Intact no petechiae rash induration ulceration or crepitus Extremities: Moving all extremity against resistance cap refill less than 2 seconds neurosensory intact significant lower extremity edema is from the ankles to the hips. Neuro: Awake alert oriented x3 Glascow coma 15 no focal deficits] Course Quality Measures none Orders Category Date Time Status Hamper Maker Machine STAT Care 04/04/24 15:18 Active Continuous Pulse Oximetry ONCE Care 04/04/24 15:18 Active EKG (ED ONLY) *Do not use* NOW Care 04/04/24 15:18 Completed Del Angel [Urinary Catheter] QS Care 04/04/24 16:56 Active Insert IV STAT Care 04/04/24 15:18 Active Saline [Insert IV] NOW Care 04/04/24 16:[address] chest abdomen pelvis wo Stat Exams 04/04/24 17:12 Completed EKG (ED Only) Stat Exams 04/04/24 15:18 Ordered XR chest 1V portable Stat Exams 04/04/24 15:18 Completed B-Type Natriuretic Peptide Stat Lab 04/04/24 15:30 Completed CBC Stat Lab 04/04/24 15:30 Completed Comprehensive Metabolic Panel Stat Lab 04/04/24 15:30 Completed Lipase Stat Lab 04/04/24 15:30 Completed Magnesium Stat Lab 04/04/24 15:30 Completed Partial Thromboplastin Time Stat Lab 04/04/24 15:30 Completed Prothrombin Time with INR Stat Lab 04/04/24 15:30 Completed Troponin I Stat Lab 04/04/24 15:30 Completed ALBUTEROL RT 0.5ml [Proventil Rt 0.5ml] Med 04/04/24 16:42 Discontinued 2.5 mg INH X1 ONE Bumetanide Inj [Bumex Inj] Med 04/04/24 16:56 Discontinued 2 mg IVP X1 ONE Calcium Gluconate 10% Inj Med 04/04/24 16:42 Discontinued 1 gm IV X1 ONE Dextrose 50% Syr [D50w Syringe Abboject] Med 04/04/24 16:42 Discontinued 25 ml IV X1 ONE Insulin Regular Med 04/04/24 16:42 Discontinued 5 unit IV X1 ONE Sodium Chloride Rt Silvina 0.9% [NS Rt Silvina 0.9%] Med 04/04/24 16:42 Active 3 ml INH PRN PRN Vital Signs Vital signs: Vital Signs Temperature 97.8 F 04/04/24 15:11 Pulse Rate 72 04/04/24 15:11 Respiratory Rate 31 H 04/04/24 15:11 Blood Pressure 170/86 H 04/04/24 15:11 Pulse Oximetry (%) 97 04/04/24 15:11 Oxygen Delivery Method Room Air 04/04/24 15:11 [facility] Patient data External records reviewed:: [facility] previous records Clinical information provided by:: patient Social determinants that could affect healthcare access:: none Patient has the following chronic illnesses:: CHF hyperlipidemia COPD How is presenting disease/condition affected by chronic disease/condition?: e xacerbated by Evaluation data The following diagnostics were reviewed and interpreted by me:: lab results, radiology exam(s) and EKG tracing(s) Lab and/or radiology exams considered but not ordered:: EKG performed at 1521 showed a ventricular rate of 70 PA interval 158 QRS of 9 8 and QTc of 447 CBC shows that there is H&H of 9 and 32 no thrombocytopenia none leukocytosis Coags within acceptable limits CMP shows a sodium 140 potassium 6.5 chloride 113 CO2 of 18.2 BUN of 54 creatinine of 2.7 with a glucose of 154. Troponin is negative BNP is greater than 1000 Lipase 27 Interpretation Summary: The patient is fluid overloaded with hyperkalemia and JOSE MARIA, patient's case discussed with Dr. Henderson, who agrees to accept the patient for admission for Dr. corona. Medications Medications considered but not ordered:: None Medication administrations:: Medication Administration History Acetaminophen (Acetaminophen 325 Mg Tablet) 650 mg PO Q6H PRN PRN Reason: Mild Pain 1-3 or Fever >100.4 Stop: 05/04/24 17:23 Atorvastatin Calcium (Atorvastatin Calcium 20 Mg Tablet) 20 mg PO HS [facility] Stop: 05/04/24 20:59 Last Admin: 04/04/24 21:22 Dose: 20 mg Documented By: CCT Bumetanide (Bumetanide Inj 0.25 Mg/Ml Vial 4 Ml) 2 mg IVP BID [facility] Stop: 05/05/24 08:59 Last Admin: 04/05/24 08:32 Dose: 2 mg Documented By: MGD Dextrose (Dextrose 50%-Water Inj 50 Ml Syringe) 25 ml IV Q15MIN PRN PRN Reason: BG 50-70 responsive npo pt Stop: 05/04/24 17:31 Dextrose (Dextrose 50%-Water Inj 50 Ml Syringe) 50 ml IV Q15MIN PRN PRN Reason: BG <50 OR BG <70 & pt unresponsive Stop: 05/04/24 17:31 Doxycycline Hyclate (Doxycycline 100 Mg Tablet) 100 mg PO BID [facility] Stop: 04/12/24 10:29 Glucagon (Glucagon Inj 1 Mg Vial) 1 mg IM Q15MIN PRN PRN Reason: BG <70, and no IV access Heparin Sodium (Porcine) (Heparin Sod Inj 5000 Unit/Ml Vial) 5,000 unit SC Q12HR [facility] Stop: 04/18/24 20:59 Last Admin: 04/05/24 11:05 Dose: Not Given Documented By: MGD Non-Admin Reason: hold Admin: 04/04/24 21:21 Dose: 5,000 unit Documented By: CCT Co-signed By: CMC Hydralazine HCl (Hydralazine Inj 20 Mg/Ml Vial) 10 mg IV Q4HR PRN PRN Reason: Hypertension Stop: 05/04/24 17:34 Last Admin: 04/04/24 18:30 Dose: 10 mg Documented By: AHKIL Hydralazine HCl (Hydralazine Hcl 25 Mg Tablet) 50 mg PO TID ANAMARIA Stop: 05/04/24 21:59 Last Admin: 04/05/24 05:14 Dose: 50 mg Documented By: Admin: 04/04/24 21:22 Dose: 50 mg Documented By: CCT Ceftriaxone Sodium/Dextrose (Rocephin/D5w 1gm Iv Premix) 50 mls @ 100 mls/hr IV QDAY ANAMARIA Stop: 04/11/24 17:29 Last Admin: 04/05/24 08:32 Dose: 100 mls/hr Documented By: MGLi Infusion: 04/04/24 18:49 Dose: Infused Documented By: Admin: 04/04/24 18:19 Dose: 100 mls/hr Documented By: AKHIL Insulin Human Lispro (Insulin Lispro (Admelog) 1 Unit/0.01 Ml Unit) 0 unit SC ACHS [facility]; Protocol Stop: 05/04/24 20:59 Last Admin: 04/05/24 08:24 Dose: Not Given Documented By: MGD Non-Admin Reason: Per Protocol Admin: 04/04/24 21:20 Dose: Not Given Documented By: CCT Non-Admin Reason: Per Protocol Ondansetron HCl (Ondansetron Inj 2 Mg/Ml Inj 2 Ml) 4 mg IV Q6H PRN; Protocol PRN Reason: NAUSEA OR VOMITING Stop: 05/04/24 17:23 Sennosides (Senna Tablet) 1 tab PO QDAY PRN; Protocol PRN Reason: constipation Stop: 05/04/24 17:23 Sodium Chloride (Sodium Chloride Rt Silvina 0.9% 3 Ml Nebu) 3 ml INH PRN PRN PRN Reason: SOLN Stop: 05/04/24 16:41 Discontinued Medications Albuterol (Albuterol Rt 2.5 Mg/0.5 Ml Nebu) 2.5 mg INH X1 ONE Stop: 04/04/24 16:43 Last Admin: 04/04/24 16:56 Dose: 2.5 mg Documented By: JULIA Albuterol/Ipratropium (Albuterol/Ipratropium (Duoneb) Rt Silvina 3 Ml Nebu) 3 ml INH X1 ONE Stop: 04/05/24 08:08 Last Admin: 04/05/24 09:22 Dose: 3 ml Documented By: JACOB Bumetanide (Bumetanide Inj 0.25 Mg/Ml Vial 4 Ml) 2 mg IVP X1 ONE Stop: 04/04/24 16:57 Last Admin: 04/04/24 17:20 Dose: 2 mg Documented By: AKHIL Bumetanide (Bumetanide Inj 0.25 Mg/Ml Vial 4 Ml) 2 mg IVP QDAY ANAMARIA Stop: 05/05/24 08:59 Calcium Gluconate (Calcium Gluconate 10% Inj 1 Gm/10 Ml Vial) 1 gm IV X1 ONE Stop: 04/04/24 16:43 Last Admin: 04/04/24 17:12 Dose: 1 gm Documented By: AKHIL Comments: via right hand ivl over 4 minutes Calcium Gluconate (Calcium Gluconate 10% Inj 1 Gm/10 Ml Vial) 1 gm IV X1 ONE Stop: 04/05/24 01:43 Last Admin: 04/05/24 03:08 Dose: 1 gm Documented By: CCT Comments: clarified dose/route with Dr. Dunbar Calcium Gluconate (Calcium Gluconate 10% Inj 1 Gm/10 Ml Vial) 1 gm IV X1 ONE Stop: 04/05/24 08:08 Last Admin: 04/05/24 08:42 Dose: 1 gm Documented By: MGD Dextrose (Dextrose 50%-Water Inj 50 Ml Syringe) 25 ml IV X1 ONE Stop: 04/04/24 16:43 Last Admin: 04/04/24 17:14 Dose: 25 ml Documented By: AKHIL Dextrose (Dextrose 50%-Water Inj 50 Ml Syringe) 50 ml IV Q15MIN PRN PRN Reason: BG <50 OR BG <70 & pt unresponsive Stop: 05/05/24 01:37 Dextrose (Dextrose 50%-Water Inj 50 Ml Syringe) 50 ml IV Q15MIN ONE Stop: 04/05/24 01:44 Last Admin: 04/05/24 03:10 Dose: 50 ml Documented By: CCT Dextrose (Dextrose 50%-Water Inj 50 Ml Syringe) 100 ml IV X1 ONE Stop: 04/05/24 08:08 Last Admin: 04/05/24 08:34 Dose: 100 ml Documented By: MGD Insulin Human Regular (Insulin Hum Regular 1 Unit/0.01 Ml (Per Unit)) 5 unit IV X1 ONE Stop: 04/04/24 16:43 Last Admin: 04/04/24 17:13 Dose: 5 unit Documented By: KM Co-signed By: DAVY Comments: given for elevated potassium Insulin Human Regular (Insulin Hum Regular 1 Unit/0.01 Ml (Per Unit)) 10 unit IV X1 ONE Stop: 04/05/24 01:39 Last Admin: 04/05/24 03:09 Dose: 10 unit Documented By: CCT Co-signed By: IQRA Comments: clarified dose/route with Dr. Dunbar Insulin Human Regular (Insulin Hum Regular 1 Unit/0.01 Ml (Per Unit)) 5 unit IV X1 ONE Stop: 04/05/24 08:08 Last Admin: 04/05/24 08:38 Dose: 5 unit Documented By: AB Co-signed By: NAI Patiromer (Patiromer Calcium 8.4 Gm Packet (Non-Form)) 8.4 gm PO X1 ONE Stop: 04/05/24 08:16 Sodium Bicarbonate (Sodium Bicarb Inj 8.4% Syr 50 Ml Syringe) 50 ml IV X1 ONE Stop: 04/05/24 08:08 Last Admin: 04/05/24 08:38 Dose: 50 ml Documented By: MGLi Sodium Chloride (Sodium Chloride Rt 10% 15 Ml Nebu) 5 ml INH X1 ONE Stop: 04/04/24 17:25 Last Admin: 04/04/24 17:50 Dose: 5 ml Documented By: AKHIL Comments: ADMINISTERED BY RT Sodium Polystyrene Sulfonate (Sod Polystyrene Sulfon Susp 15 Gm/60 Ml Btl) 30 gm PO X1 ONE Stop: 04/04/24 20:37 Last Admin: 04/04/24 21:22 Dose: 30 gm Documented By: CCT None Consultations Consultation(s) initiated? (list below): No Diagnosis Differential Diagnosis ED Complaint MDM: Hyperkalemia JOSE MARIA fluid overload CHF Most likely diagnosis given after review of the tests above:: Pain Admission Indicated Admission indicated?: indicated Explain why admission is indicated or not indicated:: Further medical management Admission Request Was there a request for admission?: No Disposition Plan Disposition Plan: Admit Medical Decision Making Differential Diagnosis Differential Diagnosis: Hyperkalemia JOSE MARIA fluid overload CHF Lab Data 04/05/24 05:53 04/05/24 05:53 Labs: Lab Results 04/04/24 Range/Units 15:30 WBC 8.1 (3.8-10.6) Thou/mm3 RBC 3.69 L (4.50-5.90) Miln/mm3 Hgb 9.8 L (13.5-16.0) g/dL Hct 32.0 L (41.0-53.0) % MCV 87 (80-100) fL MCH 26.6 (25.0-35.0) pg MCHC 30.6 L (31.0-37.0) g/dl RDW Std Deviation 59.6 H (35.1-43.9) fL Plt Count 234 (140-440) Thou/mm3 Neut % (Auto) 70 (37-80) % Lymph % (Auto) 16 (10-50) % [place] % (Auto) 10 (0-12) % Eos % (Auto) 4 (0-10) % Baso % (Auto) 0 (0-2.5) % Neut # (Auto) 5.7 (1.8-7.7) Thou/mm3 Lymph # (Auto) 1.3 (1.0-4.8) Thou/mm3 [place] # (Auto) 0.8 (0.0-0.8) Thou/mm3 Eos # (Auto) 0.3 (0.0-0.5) Thou/mm3 Baso # (Auto) 0.0 (0.0-0.2) Thou/mm3 Immature Gran # (Auto) 0.04 H (0.00-0.00) Thou/mm3 Absolute Nucleated RBC 0.00 (0.00-0.00) Thou/mm3 Immature Gran % 1 H (0-0) % Nucleated RBC % 0 (0) /100 WBC PT 11.0 (9.0-12.2) Seconds INR 1.0 (0.9-1.3) APTT 27.3 (22.0-36.0) Seconds Sodium 140 (136-145) mMol/L Potassium 6.5 H* (3.4-5.1) mMol/L Chloride 113 H (98-107) mMol/L Carbon Dioxide 18.2 L (20.0-31.0) mMol/L Anion Gap 9 (7-16) BUN 54 H (9-23) mg/dL Creatinine 2.7 H (0.6-1.3) mg/dL Estim Creat Clear Calc 34.9 L (>60) mL/min eGFR 26 L (60 - ) See Note BUN/Creatinine Ratio 20 (12-20) Ratio Glucose 154 H (74-106) mg/dL Calculated Osmolality 297 H (275-295) Calcium 8.1 L (8.3-10.6) mg/dL Corrected Calcium 8.6 (8.5-10.1) mg/dL Phosphorus 4.4 (2.4-5.1) mg/dL Magnesium 2.7 H (1.6-2.6) mg/dL Total Bilirubin 0.3 (0.3-1.2) mg/dL AST 15 (0-34) U/L ALT 28 (10-49) U/L Alkaline Phosphatase 234 H (46-116) U/L Troponin I < 0.020 (0.0-0.045) ng/mL B-Natriuretic Peptide 1117 H* (0-100) pg/mL Total Protein 6.7 (5.7-8.2) gm/dL Albumin 3.4 (3.4-4.8) gm/dL Globulin 3.3 (2.3-3.5) gm/dL Albumin/Globulin Ratio 1.0 L (1.2-2.2) Lipase 27 (12-53) U/L Discharge Plan Plan Patient Disposition: HOME (Self Care) Patient condition on transfer: Stable Problem List Clinical Impression: Hyperkalemia, Pleural effusion, CHF (congestive heart failure), Fluid overload, Shortness of breath PA/EDUCATIONAL PROGRAM ASSISTANT Supervising Physician PA/EDUCATIONAL PROGRAM ASSISTANT Supervising Physician: Parviz Ricks ENP
[2024-04-04] MEDS: CALCIUM GLUCONATE 10% INJ 1 GM/10 ML VIAL IV (17:12)
--- NOTE | 2024-04-04 17:12 | XR_ITS ---
Examination: CT chest, without intravenous contrast. CT abdomen, without intravenous contrast. CT pelvis, without intravenous contrast. 2-D sagittal and coronal reconstructions. 3-D reconstructions. Date and time of exam:April 04, 2024 7059 hours INDICATIONS: Shortness of breath generalized body swelling 2 weeks, diabetes history CTDI vol (mgy) 12.1 DLP (MGycm)1082 Technique: Multiple CT images, 3.0 mm slice thickness, obtained chest, abdomen, pelvis, with the high-resolution 64 slice scanner.. Sagittal and coronal 2-D reconstructions are obtained. 3-D reconstructions Low dose protocols were performed. One or more of the following dose reduction techniques were used; automated exposure control, adjustment of the mA and/or KV according to patient size, use of iterative reconstruction technique. Findings: No thoracic aortic aneurysmal dilatation No significant enlargement main pulmonary artery segment Mild to moderate enlargement cardiac contour with prominent vascular congestion and subtle perihilar edema Prominent pneumonia right base Large right moderate left pleural effusion Cirrhosis, liver nodular in contour Mild ascites Severe anasarca Cholelithiasis No pancreatic or adrenal mass No hydronephrosis Abdominal aortic calcification no aneurysmal dilatation No bowel obstruction Normal appendix No diverticulitis 10 mm fat-containing umbilical hernia Urinary bladder intact Normal seminal vesicles Transverse prostate dimension 4.4 cm Scrotal swelling and hydroceles Severe osteopenia IMPRESSION: Mild to moderate CHF Prominent pneumonia right base Large right moderate left pleural effusions Cirrhosis Mild ascites Cholelithiasis Severe anasarca No bowel obstruction Prominent scrotal swelling and hydroceles
[2024-04-04] MEDS: INSULIN HUM REGULAR 1 UNIT/0.01 ML (PER UNIT) 5 UNIT IV (17:13)
[2024-04-04] MEDS: DEXTROSE 50%-WATER INJ 50 ML SYRINGE 25 ML IV (17:14)
[2024-04-04] MEDS: BUMETANIDE INJ 0.25 MG/ML VIAL 4 ML 2 MG IVP (17:20)
--- NOTE | 2024-04-04 17:43 | ECHO_ITS ---
Transthoracic Echo Report Ht (in): 70 Wt (lb): 244 Exam Location: Portable Status: Emergency Tire Rebuilder: Cassandra Hensley Indications: Procedure Performed: BP: 159 / 93 HR: 75 Rhythm: Sinus Technical Quality: Fair MEASUREMENTS (Male / Female) Normal Values 2D ECHO LV Diastolic Diameter PLAX 5.3 cm 4.2 - 5.9 / 3.9 - 5.3 cm LV Systolic Diameter PLAX 4.0 cm IVS Diastolic Thickness 1.3 cm 0.6 - 1.0 / 0.6 - 0.9 cm LVPW Diastolic Thickness 1.1 cm 0.6 - 1.0 / 0.6 - 0.9 cm LV Relative Wall Thickness 0.4 LVOT Diameter 2.0 cm LA Volume Index 24.1 cm?/m? 16 - 28 cm?/m? Ascending Aorta Diameter 3.4 cm M-MODE Aortic Root Diameter MM 2.9 cm LA Systolic Diameter MM 5.0 cm LA Ao Ratio MM 1.7 AV Cusp Separation MM 1.7 cm DOPPLER AV Peak Velocity 164.0 cm/s AV Peak Gradient 10.8 mmHg AV Mean Gradient 6.0 mmHg AV Velocity Time Integral 43.3 cm AI Peak Velocity 352.0 cm/s AI Peak Gradient 49.6 mmHg AI Pressure Half Time 467.0 ms LVOT Peak Velocity 129.0 cm/s LVOT Peak Gradient 6.7 mmHg LVOT Velocity Time Integral 30.4 cm LVOT Cardiac Index 3012.6 cm?/min?m? AV Area Cont Eq vti 2.2 cm? AV Area Cont Eq pk 2.5 cm? MV Peak Velocity 118.0 cm/s MV Peak Gradient 5.6 mmHg MV Mean Velocity 78.4 cm/s MV Mean Gradient 3.0 mmHg MV Area PHT 3.6 cm? MR Peak Velocity 269.0 cm/s MR Peak Gradient 28.9 mmHg Mitral E Point Velocity 88.8 cm/s Mitral A Point Velocity 96.5 cm/s Mitral E to A Ratio 0.9 LV E' Lateral Velocity 7.8 cm/s Mitral E to LV E' Lateral Ratio 11.3 LV E' Septal Velocity 5.1 cm/s Mitral E to LV E' Septal Ratio 17.4 TR Peak Velocity 231.0 cm/s TR Peak Gradient 21.3 mmHg FINDINGS Left Ventricle Normal left ventricular size, wall thickness, systolic function with no obvious regional wall motion abnormalities. The ejection fraction is visually estimated at 50-55%. Right Ventricle The right ventricle is normal in size and systolic function. The estimated right ventricular systoli c pressure, 26mmHg. RAP 5. Left Atrium The left atrium is normal by two-dimensional, color flow and Doppler imaging with no structural abnormalities, no thrombus formation present. Right Atrium The right atrium is normal by two-dimensional imaging, color flow and Doppler imaging with no struct ural abnormalities, no thrombus formation present. Atrial Septum The interatrial septum appears normal with no evidence of a shunt. Aorta The aorta is normal by two-dimensional, color flow and Doppler interrogation. Mitral Valve The mitral valve is normal by two-dimensional, color flow and Doppler interrogation. There is trace mitral valve regurgitation. Aortic Valve The aortic valve is trileaflet and normal by two-dimensional, color flow and Doppler interrogation. There is mild aortic valve regurgitation. Tricuspid Valve The tricuspid valve is normal by two-dimensional, color flow and Doppler interrogation. There is tra ce tricuspid valve regurgitation. Pulmonic Valve The pulmonic valve is not well visualized. There is no significant pulmonic valve regurgitation. Vessels The pulmonary artery appears normal. The inferior vena cava pulmonary and hepatic veins appear pito l. Pericardium The pericardium is normal by two-dimensional imaging. There is no significant pericardial effusion. Other Findings Left pleural effusion present. CONCLUSIONS Normal LV size and function. Estimated EF 50-55% Normal RV size and function Trace MR, TR. Mild AI. Left Pleural effusion present. Philip Levy (Electronically Signed) Final Date: 06 April 2024 08:24
--- NOTE | 2024-04-04 17:43 | PC.NURSE ---
Unable to insert urinary arias cathetar after several attempt by Toi and sejal nurse, do to severe swelling, yoseph BLAKE made aware.
[2024-04-04] MEDS: SODIUM CHLORIDE RT 10% 15 ML NEBU 5 ML INH (17:50)
--- NOTE | 2024-04-04 17:51 | ESHP_ITS ---
<Statement entered by Robert Choi MD - 04/04/24 17:56> This patient is a 63-year-old male with past medical history of hypertension, hyperlipidemia, HFpEF, CKD presented to the ED on 04/04/2024 with chief complaint of bilateral lower extremity swelling and shortness of breath with elevated blood pressure. Patient was found to have significant elevated potassium 6.5 and hyperkalemia cocktail was given including insulin with D50 and breathing treatment with calcium gluconate. We repeated the potassium at this point. Patient was found to have bilateral pleural effusion more on the right side on chest x-ray. We are covering for pneumonia with ceftriaxone. Bumex 2 mg was given x 1 as patient is fluid overloaded. Will continue with fluid restriction strict CHAR's and Del Angel catheter insertion. Patient will be continued on Bumex from tomorrow on. Med rec pending. Will order CT chest abdomen pelvis to assess for any more fluid in the abdomen. For blood pressure will keep hydralazine 10 mg as needed if SBP above 180 mmHg. All labs and orders were reviewed. I saw and examined the patient, and I agree with current management stated by Dr Pepe MD,PGY1. Plan of care was discussed with the attending physician and resident physician. Disclaimer: Despite multiple revisions, due to the dictation software being used, the document bellow may not be free of grammatical errors including phonetic/typographic errors. However, this does not deter from our commitment to providing health care in the patient's best interest in mind. Dr. Jimbo MD, PGY 2 Documentation for date of: 04/04/24 HPI History of Present Illness History of present illness: CC: increased swelling and shortness of breath Patient is a 63-year-old male with a past medical history of hypertension, hyperlipidemia, diabetes mellitus type 2 insulin-dependent on trulicity 1.5 mg subq once a week, chronic kidney disease anasarca, HFpEF 55 to 50% (01/26/2024) and previous history of great big toe amputation of the right lower extremity secondary to osteomyelitis (September 2023), chronic history of an normocytic anemia who presented to the emergency room with a chief complaint of worsening dyspnea. Patient stated symptoms began 3 weeks ago with increasing lower pedal edema now presenting with anasarca. Patient stated he has not had increasing dyspnea over the past 2 weeks. Positive for orthopnea, positive for paroxysmal orthopnea, and increasing dyspnea unable to walk short distances. Requires several pillows to sleep at night. Patient denied any recent sick contacts. Patient denied chest pain. Patient denied hematemesis or hematochezia. Denied suprapubic tenderness or dysuria or increased frequency. Patient states he takes his medication regularly and follows with [facility]. Patient does not have a leveler helper or area director of home health sales. Per patient he takes all his medication as prescribed. Patient is not sure what his blood pressure is at home or his glucose readings. Stated he has had increase in weight, previously 170 lbs, but currenlty unsure of new weight but feels its increased. Admitted on 04/04/2024 for acute hypoxic respiratory failure secondary secondary to acute CHF exacerbation and anasarca extending into his abdomen and scrotal area. ER Course: In the emergency room, patient presented with hypertension of 174/91, increased work of breathing respiratory rate of 31 requiring oxygen on 4 L saturating at 97%. CMP showed sodium of 140 (normal), hyperkalemia 6.5 (high), elevated chloride 113, low bicarb 18.2, renal panel panel showing elevated BUN, elevated creatinine 2. 7 and GFR 26 with a history of chronic kidney disease. Magnesium elevated 2.7. Troponin within normal limits BNP 1117. Per chart review previous cocci negative. Previous hepatitis C negative. Previous HIV negative. Chest x-ray showed mild heart failure, right base pneumonia, enlarged right moderate left pleural effusion. Medication given in the emergency room albuterol breathing treatment, calcium gluconate, insulin 5 units regular, dextrose, Bumex 2 mg IV push and sodium chloride intranasal x 1 PMH: hypertension hyperlipidemia diabetes mellitus type 2 insulin-dependent chronic kidney disease anasarca HFpEF 55 to 50% (01/26/2024) history of osteomyelitis (September 2023) s/p 1 digit amputation of right lower extremtiy hx of chronic normocytic anemia Home Medication: Bumetanide 2 mg Q day Carvedilol 25 mg BID Hydralazine 25 mg X 4 (100 mg) PO Q8HRs Atorvastatin 20 mg HS Tulicity 1.5 subq once a week Social History: Remote history of Alcohol Consumption with moderation per pateint Denied smoking history Denied illicit drug use Allergies: Negative Code Status: Full code Review of Systems Review of Systems Narrative Review of Systems: General appearance: YES weight change increased but not sure by how much, Yes fatigue, NO weakness, NO fever, NO chills, NO night sweats, No cough Skin: NO rash, NO itching, NO sores, NO moles HEENT: NO Trauma, NO nausea, NO vomiting, NO visual changes, NO blurry vision, NO double vision, NO tinnitus, NO vertigo, NO ear discharge, NO rhinorrhea, NO stuffiness, NO sneezing, NO allergy, NO epistaxis. NO Hoarseness, NO sore throat, NO swollen neck. Cardiac: NO Palpitations, YES dyspnea on exertion, YES orthopnea, YES paroxysmal nocturnal dyspnea, YES edema Respiratory: YES Shortness of Breath, NO Wheezing, NO Cough, NO Sputum, NO hemoptysis GI:NO appetite, NO nausea, NO vomiting, NO dysphagia, NO changes in bowel frequency, NO stool color, NO diarrhea, NO constipation, NO hemetemesis, NO hemorrhoids, NO melena, NO hematechezia, NO abdominal pain, NO jaundice Renal: NO frequency, NO hesitancy, NO urgency, NO hematuria, NO nocturia, NO incontinence MSK: NO muscle weakness, NO gout, NO arthritis, NO muscle stiffness Neuro: NO headaches, NO tremors, NO weakness, NO paralysis, NO seizures, NO loss of consciousness, NO numbness. Hem: NO anemia, NO easy bruising/bleeding, NO petechiae, NO purpura Endo: NO heat/cold intolerance, NO excessive sweating, NO polyuria, NO polydipsia, NO polyphagia, NO thyroid problems, YES diabetes Pysch: NO mood, NO anxiety, NO depression Exam Vital Signs Temp Pulse Resp BP Pulse Ox O2 Del Method O2 Flow Rate 98.3 F 64 32 H 172/100 H 96 Room Air 4 04/04/24 16:42 04/04/24 17:45 04/04/24 17:45 04/04/24 17:20 04/04/24 17:45 04/04/24 16:42 04/04/24 17:45 Narrative Exam General Appearance: Alert & Oriented X3, well-nourished male who is lying in bed in mild distress with ANASARCA extending from abdomen to scrotum, and lower extremities HEENT: Skull symmetrical and atraumatic. Conjunctivae pin and moist. Pupils equal, round, reactive to light and accommodation (PERRL). External ear without lesion or discharge. Straight, nares patient, mucosa pink, no discharge. No thyroid nodule appreciated. No cervical lymphadenopathy. Cardio: Normal Rate and Rhythm with S1 and S2 heart sounds. No murmurs or extra heart sounds auscultated. No bruits on carotid auscultation. Peripheral edema +3. JVD. Lungs: Symmetric with good expansion. Chest and back non-tender. Breath sounds vesicular with crackles Abdomen: Non-tender, distended, hypoactive bowel sounds secondary to fluid status Neuro: Alert, cooperative, oriented to person, place, and time. Speech clear. CN grossly intact. Upper motor strength 5/5 and Lower motor strength 5/5. Sensation intact. Results: Labs 04/05/24 05:53 04/05/24 12:17 Labs: Short CBC 04/04/24 Range/Units 15:30 WBC 8.1 (3.8-10.6) Thou/mm3 Hgb 9.8 L (13.5-16.0) g/dL Hct 32.0 L (41.0-53.0) % Plt Count 234 (140-440) Thou/mm3 BMP 04/04/24 15:30 Sodium 140 Potassium 6.5 H* Chloride 113 H Carbon Dioxide 18.2 L BUN 54 H Creatinine 2.7 H Glucose 154 H Calcium 8.1 L Cardiac Enzymes 04/04/24 Range/Units 15:30 Troponin I < 0.020 (0.0-0.045) ng/mL Liver Function 04/04/24 Range/Units 15:30 Total Bilirubin 0.3 (0.3-1.2) mg/dL AST 15 (0-34) U/L ALT 28 (10-49) U/L Alkaline Phosphatase 234 H (46-116) U/L Albumin 3.4 (3.4-4.8) gm/dL Quality Measures Quality Measures none (planning of thoracentesis AM, patient is ambulatory ) Medications Home Medications and Allergies Home Medications ?Medication ?Instructions ?Recorded ?Confirmed ?Type clonidine HCl 0.1 mg tablet 0.1 mg PO BID 04/05/24 04/05/24 History dulaglutide 1.5 mg/0.5 mL 1.5 mg subcut QWEEK 04/05/24 04/05/24 [facility] Allergies Allergy/AdvReac Type Severity Reaction Status Date / Time No Known Allergies Allergy Verified 04/04/24 14:15 Visit Medications Acetaminophen (Acetaminophen 325 Mg Tablet) 650 mg PO Q6H PRN PRN Reason: Mild Pain 1-3 or Fever >100.4 Stop: 05/04/24 17:23 Bumetanide (Bumetanide Inj 0.25 Mg/Ml Vial 4 Ml) 2 mg IVP QDAY [facility] Stop: 05/05/24 08:59 Dextrose (Dextrose 50%-Water Inj 50 Ml Syringe) 25 ml IV Q15MIN PRN PRN Reason: BG 50-70 responsive npo pt Stop: 05/04/24 17:31 Dextrose (Dextrose 50%-Water Inj 50 Ml Syringe) 50 ml IV Q15MIN PRN PRN Reason: BG <50 OR BG <70 & pt unresponsive Stop: 05/04/24 17:31 Glucagon (Glucagon Inj 1 Mg Vial) 1 mg IM Q15MIN PRN PRN Reason: BG <70, and no IV access Heparin Sodium (Porcine) (Heparin Sod Inj 5000 Unit/Ml Vial) 5,000 unit SC Q12HR [facility] Stop: 04/18/24 20:59 Hydralazine HCl (Hydralazine Inj 20 Mg/Ml Vial) 10 mg IV Q4HR PRN PRN Reason: Hypertension Stop: 05/04/24 17:34 Ceftriaxone Sodium/Dextrose (Rocephin/D5w 1gm Iv Premix) 50 mls @ 100 mls/hr IV QDAY [facility] Stop: 04/11/24 17:29 Insulin Human Lispro (Insulin Lispro (Admelog) 1 Unit/0.01 Ml Unit) 0 unit SC [facility]; Protocol Stop: 05/04/24 20:59 Ondansetron HCl (Ondansetron Inj 2 Mg/Ml Inj 2 Ml) 4 mg IV Q6H PRN; Protocol PRN Reason: NAUSEA OR VOMITING Stop: 05/04/24 17:23 Sennosides (Senna Tablet) 1 tab PO QDAY PRN; Protocol PRN Reason: constipation Stop: 05/04/24 17:23 Sodium Chloride (Sodium Chloride Rt Silvina 0.9% 3 Ml Nebu) 3 ml INH PRN PRN PRN Reason: SOLN Stop: 05/04/24 16:41 Discontinued Medications Albuterol (Albuterol Rt 2.5 Mg/0.5 Ml Nebu) 2.5 mg INH X1 ONE Stop: 04/04/24 16:43 Last Admin: 04/04/24 16:56 Dose: 2.5 mg Bumetanide (Bumetanide Inj 0.25 Mg/Ml Vial 4 Ml) 2 mg IVP X1 ONE Stop: 04/04/24 16:57 Last Admin: 04/04/24 17:20 Dose: 2 mg Calcium Gluconate (Calcium Gluconate 10% Inj 1 Gm/10 Ml Vial) 1 gm IV X1 ONE Stop: 04/04/24 16:43 Last Admin: 04/04/24 17:12 Dose: 1 gm Dextrose (Dextrose 50%-Water Inj 50 Ml Syringe) 25 ml IV X1 ONE Stop: 04/04/24 16:43 Last Admin: 04/04/24 17:14 Dose: 25 ml Insulin Human Regular (Insulin Hum Regular 1 Unit/0.01 Ml (Per Unit)) 5 unit IV X1 ONE Stop: 04/04/24 16:43 Last Admin: 04/04/24 17:13 Dose: 5 unit Sodium Chloride (Sodium Chloride Rt 10% 15 Ml Nebu) 5 ml INH X1 ONE Stop: 04/04/24 17:25 Last Admin: 04/04/24 17:50 Dose: 5 ml Assessment & Plan Plan Patient is a 63-year-old male with a past medical history of hypertension, hyperlipidemia, diabetes mellitus type 2 insulin-dependent on trulicity 1.5 mg subq once a week, chronic kidney disease anasarca, HFpEF 55 to 50% (01/26/2024) who was admitted for acute hypoxic respiratory failure, secondary to acute on chronic CHF exacerbation w/ ANASARCA. #Acute hypoxic respiratory failure #CHF exacerbation #Congestive Heart Failure HFpEF 55% to 50% (01/2024) #Pleural Effusion #ANASARCA Etiology: likely secondary to cardiomyopathy, worsened by cardio-renal syndrome with worsening anasarca. Positive for orthopnea , dyspnea, and PNO. Requiring oxygen on admission secondary to increased work of breathing. Please consider Bipap if needed or ABG for worsening work of breathing. Plerual effusion, plan for thoracentesis. DDx: Less likley secondary to AR given no ST elevation on EKG and no troponin vs PE Wells 1.5 NYHA Class: IV Plan: -Bumex 2 mg IV QDay, (first dose received in ER) -Holding Carvedilol -CT Pending -PT/INR in AM -Thoracentesis US guided IR -Echo -TSH -Lipid Panel -A1c -K>4 and Mg >2 -SpO <90%, support PRN -Consider high flow or bipap if shortness of breath worsens or ABG -Daily Weights, Strict Ins and Outs, Fluid Striction (1500), Sodium Restriction 2 grams per day #Hyperkalemia #JOSE MARIA on CKD stage IV #Non-anion gap, Metabolic Alkalosis Possible JOSE MARIA given acute CHF exacerbation with best Cr for patient recorded at 1.9 which wiley an increas >0.3. BUN/Cr level at 20 likely points to prerenal etioilogy. Worsening CKD can not be ruled out vs obstructive less likely as patient denied decrease urine output. Hyperkalemia secondary to acute kidney injury vs less likely secondary DKA. Please follow on K labs. Moderate Bilateral Renal Parenchymal scar formation (01/29/2024) Plan -Given: Albuerol, Calcium Gluconate, Regular Insulin 5 units, Dextrose 25 ml IV x1 -Follow up with K, at 6:00 PM-pending results. Consider kayexalate -Avoid nephrotoxins -Renally dose medication -Monitor Bicarb -electrolytes and protein urine -consult Dr. Main, appreciate recommendations. #Diabetes Mellitus Type 2 Insulin dependent Previous A1c 6.2% on 01/2024 with a glucose on admission of 154. Plan -A1c in AM -Sliding scale -Monitor glucose in the AM #Hypertensive Urgency #Hypertension Patient's home medication of Hydralazine 100 mg TID. Start at a lower dose of hydralazine 50 mg TID. Plan -Hydralazine PRN -Hydralazine 50 mg TID -Please follow if need be add amlodipine #Hyperlipedimia Continue home medication of Atorvastatin 20 mg HS oral. Plan -Lipid Panel -Atorvastatin 20 mg HS Health Maintenance: Disp: Pt is currently admitted to floors for further management of CHF exacerbation, awaiting echo and possible pleural effusion FEN: low carb consistent, Fluid restricted 1500, and 2 gm per day DVT: on subQ heparin-holding for thoracentesis Code: Full/DNR - The patient's plan was discussed with attending Dr. Amaro and senior residents Dr. Jimbo Cantu MD PGY1 Internal Medicine Attending Provider Attestation/Addendum I attest that I was physically present for the evaluation, physical examination, lab and imaging review of the patient with the residents. I discussed the case with the residents and agree with the findings and plans of care as documented above. Patient is a 63 years old male with past medical history of hypertension, hyperlipidemia, HFpEF, CKD who presented to the ED with complaint of worsening shortness of breath.? Patient also had a worsening bilateral lower extremity edema.? He is also positive for orthopnea, PND.? In the ED, he was found to be hypertensive.? He was also started on supplemental oxygen.? Lab results showed hyperkalemia with elevated BUN and creatinine.? BNP was 1117.? Chest x-ray showed fluid overload and right base pneumonia, large right and moderate left pleural effusions.? We will admit the patient for management of acute hypoxic respiratory failure secondary to CHF exacerbation, JOSE MARIA on CKD with electrolyte imbalance and hypertensive urgency.? We will start IV diuresis, antibiotics, supplemental oxygen, fluid restriction.? We will also obtain nephrology consult.? Patient received albuterol, calcium gluconate, regular insulin and dextrose.? We will follow-up with renal panel and start Kayexalate.? Patient restarted on antihypertensive, antihyperlipidemics and insulin regimen. Win Amaro MD
[2024-04-04 18:12] LABS: Phosphorous 4.4 mg/dL (2.4-5.1)
[2024-04-04] MEDS: cefTRIAXone/D5w 1gm IV premix 50 ML IV (18:19)
[2024-04-04] MEDS: hydrALAZINE INJ 20 MG/ML VIAL 10 MG IV (18:30)
--- NOTE | 2024-04-04 18:45 | PC.RT ---
sputum sample collected and sent to lab.
[2024-04-04 20:22] LABS: Albumin, Serum 3.4 gm/dL (3.4-4.8); Anion Gap 8 (7-16); BUN/Creatinine Ratio 22 Ratio (12-20); Blood Urea Nitrogen 56 mg/dL (9-23); Calcium 8.2 mg/dL (8.3-10.6); Calcium (Corrected) 8.7 mg/dL (8.5-10.1); Carbon Dioxide 19.1 mMol/L (20.0-31.0); Chloride 114 mMol/L (98-107); Creatinine (Component) 2.6 mg/dL (0.6-1.3); Estimated Creatinine Clearance 36.3 mL/min (>60); Glucose 82 mg/dL (74-106); Osmolality,Calculated 295 (275-295); Phosphorous 4.4 mg/dL (2.4-5.1); Sodium 141 mMol/L (136-145); eGFR 27 See Note
[2024-04-04 20:29] LABS: Potassium 6.2 mMol/L (3.4-5.1)
[2024-04-04] MEDS: HEPARIN SOD INJ 5000 UNIT/ML VIAL SC (21:21)
[2024-04-04] MEDS: hydrALAZINE HCL 25 MG TABLET 50 MG PO (21:22)
[2024-04-04] MEDS: SOD POLYSTYRENE SULFON SUSP 15 GM/60 ML BTL 30 GM PO (21:22)
[2024-04-04] MEDS: ATORVASTATIN CALCIUM 20 MG TABLET PO (21:22)
[2024-04-05] VITALS (17 sets, daily range): BP systolic 136–173; BP diastolic 56–104; PULSE 68–80; RESP 12–21; TEMP 36.1–36.7; O2SAT 95–100; BMI 35.1; BMI 34.9
[2024-04-05] MEDS: CALCIUM GLUCONATE 10% INJ 1 GM/10 ML VIAL IV ×3 (03:08→13:43)
[2024-04-05] MEDS: INSULIN HUM REGULAR 1 UNIT/0.01 ML (PER UNIT) 10 UNIT IV ×2 (03:09→13:43)
[2024-04-05] MEDS: DEXTROSE 50%-WATER INJ 50 ML SYRINGE IV ×2 (03:10→13:43)
[2024-04-05] MEDS: hydrALAZINE HCL 25 MG TABLET 50 MG PO ×3 (05:14→21:55)
[2024-04-05 06:11] LABS: Basophils % (Auto) 0 % (0-2.5); Eosinophils # (Auto) 0.2 Thou/mm3 (0.0-0.5); Eosinophils % (Auto) 3 % (0-10); Hematocrit 30.2 % (41.0-53.0); Hemoglobin 9.1 g/dL (13.5-16.0); Immature Granulocytes % (Auto) 0 % (0-0); Immature Granulocytes Auto 0.03 Thou/mm3 (0.00-0.00); Lymphocytes # (Auto) 1.2 Thou/mm3 (1.0-4.8); Lymphocytes % (Auto) 15 % (10-50); Mean Corpuscular HGB Conc 30.1 g/dl (31.0-37.0); Mean Corpuscular Hemoglobin 26.4 pg (25.0-35.0); Mean Corpuscular Volume 88 fL (80-100); Monocytes # (Auto) 0.9 Thou/mm3 (0.0-0.8); Monocytes % (Auto) 11 % (0-12); Neutrophils # (Auto) 5.7 Thou/mm3 (1.8-7.7); Neutrophils % (Auto) 70 % (37-80); Nucleated Red Blood Cell % 0 /100 WBC (0); Platelet Count 223 Thou/mm3 (140-440); Red Blood Count 3.45 Miln/mm3 (4.50-5.90); White Blood Count 8.1 Thou/mm3 (3.8-10.6)
[2024-04-05 06:30] LABS: INR 1.1 (0.9-1.3); Partial Thromboplastin Time 27.2 Seconds (22.0-36.0); Prothrombin Time 11.5 Seconds (9.0-12.2)
[2024-04-05 07:05] LABS: Glucose Estimated Average 137 mg/dL (80-131); Hemoglobin A1C 6.4 % Hgb (4.8-6.0)
[2024-04-05 07:12] LABS: Anion Gap 9 (7-16); Blood Urea Nitrogen 58 mg/dL (9-23); Carbon Dioxide 19.4 mMol/L (20.0-31.0); Chloride 115 mMol/L (98-107); Creatinine (Component) 2.6 mg/dL (0.6-1.3); Potassium 5.8 mMol/L (3.4-5.1); Sodium 143 mMol/L (136-145)
[2024-04-05 07:13] LABS: Alanine Aminotransferase 22 U/L (10-49); Albumin, Serum 3.3 gm/dL (3.4-4.8); Albumin/Globulin Ratio 1.1 (1.2-2.2); Alkaline Phosphatase 200 U/L (46-116); Aspartate Amino Transferase 11 U/L (0-34); BUN/Creatinine Ratio 22 Ratio (12-20); Bilirubin,Total 0.4 mg/dL (0.3-1.2); Calcium 8.3 mg/dL (8.3-10.6); Calcium (Corrected) 8.9 mg/dL (8.5-10.1); Cardiac Risk Estimate 3.5 RATIO (4.0-6.7); Cholesterol 108 mg/dL (132-200); Estimated Creatinine Clearance 36.3 mL/min (>60); Globulin 2.9 gm/dL (2.3-3.5); Glucose 90 mg/dL (74-106); HDL Cholesterol 31 mg/dL (40-60); LDH (Lactate Dehydrogenase) 233 U/L (120-246); LDL Cholesterol,Calculated 63 mg/dL (0-130); Magnesium 2.6 mg/dL (1.6-2.6); Osmolality,Calculated 301 (275-295); Phosphorous 4.9 mg/dL (2.4-5.1); Total Protein 6.2 gm/dL (5.7-8.2); Triglycerides 71 mg/dL (30-150); eGFR 27 See Note
[2024-04-05] MEDS: cefTRIAXone/D5w 1gm IV premix 50 ML IV (08:32)
[2024-04-05] MEDS: BUMETANIDE INJ 0.25 MG/ML VIAL 4 ML 2 MG IVP ×2 (08:32→21:09)
[2024-04-05] MEDS: DEXTROSE 50%-WATER INJ 50 ML SYRINGE 100 ML IV (08:34)
[2024-04-05] MEDS: INSULIN HUM REGULAR 1 UNIT/0.01 ML (PER UNIT) 5 UNIT IV (08:38)
[2024-04-05] MEDS: Sodium Bicarb Inj 8.4% SYR 50 ML SYRINGE IV (08:38)
--- NOTE | 2024-04-05 09:21 | ESCONSULT_ITS ---
HPI Data of Consult Consult date: 04/05/24 Requesting Physician: Win Amaro MD Admitting Provider: Win Amaro MD Attending Provider: Win Amaro MD Primary Care Provider: Vik Lopez MD Consult Narrative Reason for consult: Hyerkalemia, JOSE MARIA History of present illness: Colton Sandoval is a 63-year-old male with a PMHx of HTN, HLD, insulin-dependent T2DM, HFpEF (EF 50-55% on 01/2024), and CKD stage IV presented on 04/04 for progressive dyspnea. Symptoms started three weeks ago with associated bilateral lower extremity edema, orthopnea, and paroxysmal nocturnal dyspnea. States that he sleeps with three pillows at night. Denies muscle pain, weakness, paresthesias, palpitations. Reports being compliant with his medications and follows-up with [facility]. Of note, patient admitted on 01/2024 for acute decompensated HF exacerbation with component of sepsis secondary to pneumonia and states that he does not follow-up with a pediatric urologist outpatient. In ED, BP 170/86, RR 31, on 4 L NC saturating 97%. Labs significant for hemoglobin 9.8 (BL 7.5), K 6.5, HCO3 18.2, BUN 54, Cr 2.7 (at BL), GFR 26 BNP 1100, troponin negative. CT C/A/P: Mild/moderate CHF, pneumonia on the right base, large right/moderate left effusions, cirrhosis, mild ascites, severe anasarca. EKG without peaked T waves, prolonged QRS complexes, or flattened P waves. Given calcium gluconate, albuterol and insulin + dextrose in ED, with repeat K decreasing to 6.2 (from 6.5). Also given 2 mg IV bumex. Admitted for management of AHRF secondary to decompensated CHF exacerbation. Nephrology consulted for hyperkalemia. 04/05: Seen and examined in telemetry. States that he is still short of breath but is not worse compared to yesterday. He is making good urine with 1 L urine output since being admitted yesterday, currently on 2 mg IV bumex BID. K downtrending from 6.5 -> 6.2 -> 5.8. Since ED, has received Kayexalate x1, and another round of albuterol/insulin + dextrose/calcium gluconate. cc:: cc: Win Amaro MD Review of Systems Review of Systems Systems Reviewed: All systems reviewed, normal except as documented Past Medical History Past Medical History NEUROLOGIC: Negative Seizures CARDIAC: Positive Cardiac Disorders, Hypercholesterolemia, Edema, Cellulitis and Hypertension; Negative Congestive Heart Failure RESPIRATORY: Negative Chronic Obstructive Pulmonary Disease (COPD) or Asthma GENITOURINARY: Negative Renal Disease ENDOCRINE: Positive Endocrine Disorders and Diabetes Mellitus Type 2; Negative Diabetes Mellitus Type 1 HEMATOLOGIC: Negative Sickle Cell Disease OTHER HISTORY: Positive Hospitalization; Negative Falls, Blood Transfusions, Blood Transfusion Reaction or Anesthesia Reactions Surgical History SURGICAL: Positive Amputation Social History SMOKING STATUS: Never smoker SUBSTANCE USE: does not use Exam Vital Signs Temp Pulse Resp BP Pulse Ox O2 Del Method O2 Flow Rate 98.1 F 68 14 136/75 H 100 Nasal Cannula 5 04/05/24 04:30 04/05/24 08:32 04/05/24 07:13 04/05/24 08:32 04/05/24 07:13 04/05/24 04:30 04/05/24 07:13 Narrative Exam General: AOx3, no mild distress, slightly diaphoretic, able to speak full sentences HEENT: NC/AT, mucous membranes moist, bilateral sclera anicteric Cardiovascular: regular rate and rhythm, S1/S2 present, no murmurs appreciated Pulmonary: diminished breath sounds, mild wheezing at bases Abdominal: distended, firm, non-tender Musculoskeletal: 2+ bilateral pitting edema up to knees + anasarca Skin: healed excoriations in upper extremities/shoulders Results Labs 04/06/24 07:00 04/06/24 10:09 Labs: Short CBC 04/04/24 04/05/24 Range/Units 15:30 05:53 WBC 8.1 8.1 (3.8-10.6) Thou/mm3 Hgb 9.8 L 9.1 L (13.5-16.0) g/dL Hct 32.0 L 30.2 L (41.0-53.0) % Plt Count 234 223 (140-440) Thou/mm3 BMP 04/04/24 04/04/24 04/05/24 15:30 19:23 05:53 Sodium 140 141 143 Potassium 6.5 H* 6.2 H* 5.8 H Chloride 113 H 114 H 115 H Carbon Dioxide 18.2 L 19.1 L 19.4 L BUN 54 H 56 H 58 H Creatinine 2.7 H 2.6 H 2.6 H Glucose 154 H 82 D 90 Calcium 8.1 L 8.2 L 8.3 Cardiac Enzymes 04/04/24 Range/Units 15:30 Troponin I < 0.020 (0.0-0.045) ng/mL Liver Function 04/04/24 04/04/24 04/05/24 Range/Units 15:30 19:23 05:53 Total Bilirubin 0.3 0.4 (0.3-1.2) mg/dL AST 15 11 (0-34) U/L ALT 28 22 (10-49) U/L Alkaline Phosphatase 234 H 200 H D (46-116) U/L Albumin 3.4 3.4 3.3 L (3.4-4.8) gm/dL Quality Measures Quality Measures none (planning of thoracentesis AM, patient is ambulatory ) Medications Home Medications and Allergies Home Medications ?Medication ?Instructions ?Recorded ?Confirmed ?Type clonidine HCl 0.1 mg tablet 0.1 mg PO BID 04/05/24 04/05/24 History dulaglutide 1.5 mg/0.5 mL 1.5 mg subcut QWEEK 04/05/24 04/05/24 History subcutaneous pen injector (Trulicity) Allergies Allergy/AdvReac Type Severity Reaction Status Date / Time No Known Allergies Allergy Verified 04/04/24 14:15 Visit Medications Acetaminophen (Acetaminophen 325 Mg Tablet) 650 mg PO Q6H PRN PRN Reason: Mild Pain 1-3 or Fever >100.4 Stop: 05/04/24 17:23 Atorvastatin Calcium (Atorvastatin Calcium 20 Mg Tablet) 20 mg PO HS ANAMARIA Stop: 05/04/24 20:59 Last Admin: 04/04/24 21:22 Dose: 20 mg Bumetanide (Bumetanide Inj 0.25 Mg/Ml Vial 4 Ml) 2 mg IVP BID ANAMARIA Stop: 05/05/24 08:59 Last Admin: 04/05/24 08:32 Dose: 2 mg Dextrose (Dextrose 50%-Water Inj 50 Ml Syringe) 25 ml IV Q15MIN PRN PRN Reason: BG 50-70 responsive npo pt Stop: 05/04/24 17:31 Dextrose (Dextrose 50%-Water Inj 50 Ml Syringe) 50 ml IV Q15MIN PRN PRN Reason: BG <50 OR BG <70 & pt unresponsive Stop: 05/04/24 17:31 Glucagon (Glucagon Inj 1 Mg Vial) 1 mg IM Q15MIN PRN PRN Reason: BG <70, and no IV access Heparin Sodium (Porcine) (Heparin Sod Inj 5000 Unit/Ml Vial) 5,000 unit SC Q12HR [facility] Stop: 04/18/24 20:59 Last Admin: 04/04/24 21:21 Dose: 5,000 unit Hydralazine HCl (Hydralazine Inj 20 Mg/Ml Vial) 10 mg IV Q4HR PRN PRN Reason: Hypertension Stop: 05/04/24 17:34 Last Admin: 04/04/24 18:30 Dose: 10 mg Hydralazine HCl (Hydralazine Hcl 25 Mg Tablet) 50 mg PO TID [facility] Stop: 05/04/24 21:59 Last Admin: 04/05/24 05:14 Dose: 50 mg Ceftriaxone Sodium/Dextrose (Rocephin/D5w 1gm Iv Premix) 50 mls @ 100 mls/hr IV QDAY [facility] Stop: 04/11/24 17:29 Last Admin: 04/05/24 08:32 Dose: 100 mls/hr Insulin Human Lispro (Insulin Lispro (Admelog) 1 Unit/0.01 Ml Unit) 0 unit SC [facility]; Protocol Stop: 05/04/24 20:59 Last Admin: 04/05/24 08:24 Dose: Not Given Ondansetron HCl (Ondansetron Inj 2 Mg/Ml Inj 2 Ml) 4 mg IV Q6H PRN; Protocol PRN Reason: NAUSEA OR VOMITING Stop: 05/04/24 17:23 Sennosides (Senna Tablet) 1 tab PO QDAY PRN; Protocol PRN Reason: constipation Stop: 05/04/24 17:23 Sodium Chloride (Sodium Chloride Rt Silvina 0.9% 3 Ml Nebu) 3 ml INH PRN PRN PRN Reason: SOLN Stop: 05/04/24 16:41 Discontinued Medications Albuterol (Albuterol Rt 2.5 Mg/0.5 Ml Nebu) 2.5 mg INH X1 ONE Stop: 04/04/24 16:43 Last Admin: 04/04/24 16:56 Dose: 2.5 mg Albuterol/Ipratropium (Albuterol/Ipratropium (Duoneb) Rt Silvina 3 Ml Nebu) 3 ml INH X1 ONE Stop: 04/05/24 08:08 Bumetanide (Bumetanide Inj 0.25 Mg/Ml Vial 4 Ml) 2 mg IVP X1 ONE Stop: 04/04/24 16:57 Last Admin: 04/04/24 17:20 Dose: 2 mg Bumetanide (Bumetanide Inj 0.25 Mg/Ml Vial 4 Ml) 2 mg IVP QDAY ANAMARIA Stop: 05/05/24 08:59 Calcium Gluconate (Calcium Gluconate 10% Inj 1 Gm/10 Ml Vial) 1 gm IV X1 ONE Stop: 04/04/24 16:43 Last Admin: 04/04/24 17:12 Dose: 1 gm Calcium Gluconate (Calcium Gluconate 10% Inj 1 Gm/10 Ml Vial) 1 gm IV X1 ONE Stop: 04/05/24 01:43 Last Admin: 04/05/24 03:08 Dose: 1 gm Calcium Gluconate (Calcium Gluconate 10% Inj 1 Gm/10 Ml Vial) 1 gm IV X1 ONE Stop: 04/05/24 08:08 Last Admin: 04/05/24 08:42 Dose: 1 gm Dextrose (Dextrose 50%-Water Inj 50 Ml Syringe) 25 ml IV X1 ONE Stop: 04/04/24 16:43 Last Admin: 04/04/24 17:14 Dose: 25 ml Dextrose (Dextrose 50%-Water Inj 50 Ml Syringe) 50 ml IV Q15MIN PRN PRN Reason: BG <50 OR BG <70 & pt unresponsive Stop: 05/05/24 01:37 Dextrose (Dextrose 50%-Water Inj 50 Ml Syringe) 50 ml IV Q15MIN ONE Stop: 04/05/24 01:44 Last Admin: 04/05/24 03:10 Dose: 50 ml Dextrose (Dextrose 50%-Water Inj 50 Ml Syringe) 100 ml IV X1 ONE Stop: 04/05/24 08:08 Last Admin: 04/05/24 08:34 Dose: 100 ml Insulin Human Regular (Insulin Hum Regular 1 Unit/0.01 Ml (Per Unit)) 5 unit IV X1 ONE Stop: 04/04/24 16:43 Last Admin: 04/04/24 17:13 Dose: 5 unit Insulin Human Regular (Insulin Hum Regular 1 Unit/0.01 Ml (Per Unit)) 10 unit IV X1 ONE Stop: 04/05/24 01:39 Last Admin: 04/05/24 03:09 Dose: 10 unit Insulin Human Regular (Insulin Hum Regular 1 Unit/0.01 Ml (Per Unit)) 5 unit IV X1 ONE Stop: 04/05/24 08:08 Last Admin: 04/05/24 08:38 Dose: 5 unit Patiromer (Patiromer Calcium 8.4 Gm Packet (Non-Form)) 8.4 gm PO X1 ONE Stop: 04/05/24 08:16 Sodium Bicarbonate (Sodium Bicarb Inj 8.4% Syr 50 Ml Syringe) 50 ml IV X1 ONE Stop: 04/05/24 08:08 Last Admin: 04/05/24 08:38 Dose: 50 ml Sodium Chloride (Sodium Chloride Rt 10% 15 Ml Nebu) 5 ml INH X1 ONE Stop: 04/04/24 17:25 Last Admin: 04/04/24 17:50 Dose: 5 ml Sodium Polystyrene Sulfonate (Sod Polystyrene Sulfon Susp 15 Gm/60 Ml Btl) 30 gm PO X1 ONE Stop: 04/04/24 20:37 Last Admin: 04/04/24 21:22 Dose: 30 gm Assessment & Plan Plan Colton Sandoval is a 63-year-old male with a PMHx of HTN, HLD, insulin-dependent T2DM, HFpEF (EF 50-55% on 01/2024), and CKD stage IV who is admitted for management of acute decompensated CHF exacerbation. Nephrology consulted for hyperkalemia. #Hyperkalemia Initially presents with potassium of 6.5 that has since down trended to 5.8 after receiving albuterol, insulin plus dextrose, and calcium gluconate. Has also received Kayexalate x 1 and currently on IV Bumex with good urine output. Given that patient did not have EKG changes associated with hyperkalemia (peaked T waves, prolonged QRS complex, flattened P waves) and does not endorse muscle weakness/paralysis, does not require emergent therapy and serum K can be lowered slowly with diuretics. Has history of uncontrolled diabetes (albeit improved) that likely caused CKD, and likely contributed to hyperkalemia. ? Continue IV bumex so long as patient continues to have good urine output ? May consider GI cation exchangers if K does not improve ? Can also consider upon discharge for maintenance therapy ? Low K diet #CKD stage IV #Normocytic anemia, likely secondary to CKD ? Avoid nephrotoxic agents ? Renally dose medications ? Strict I/O #Acute decompensated CHF exacerbation #HFpEF (EF 50-55% on 01/2024) #Type 2 diabetes mellitus, insulin-dependent #Hypertension #Hyperlipidemia ? Continue management per primary team ----- Plan discussed with attending physician Dr. Etelvina Lee MD PGY-1 Internal Medicine Attending Provider Attestation/Addendum Patient seen and examined with resident physician Dr. Bowser. Note reviewed, agree with findings and recommendations. Patient with recurrent episodes of congestive heart failure secondary to diabetic nephropathy(cardiorenal syndrome). Diuretic dependent/resistant with significant anasarca. Had a long conversation with patient regarding the need for dialysis to prevent recurrent hospitalizations and to maintain euvolemic state. Patient agreed for dialysis if indicated. Will decide in a.m. Thank you Win for allowing me to participate in the care of Mr. Sandoval
[2024-04-05] MEDS: ALBUTEROL/IPRATROPIUM (Duoneb) RT SOL 3 ML NEBU INH ×2 (09:22→13:42)
--- NOTE | 2024-04-05 09:45 | PC.SS ---
Colton Valle is a 63-year-old male admitted for CHF Exacerbation. SS made contact with patient at bedside to complete initial and discuss discharge disposition. The patient appeared alert and oriented. Demographic information was verified by patient. Patient reports he lives at home with roommates. The patient stated his friend Colton Hernandez is surrogate decision maker [phone]. He is independent with all ADLs. Patient does utilize a FWW to assist with ambulation. Patient reports he does not utilize any home 02. Pt's choice of pharmacy is [facility] Patients PCP is Vik Lopez . At time of discharge patient will return home, friend will provide transportation. Discharge Plan: Home Next of Kin: Friend, Colton Hernandez [phone] PCP:Nicole Lopez
[2024-04-05] MEDS: DOXYCYCLINE 100 MG TABLET PO ×2 (10:30→21:08)
[2024-04-05] MEDS: PATIROMER CALCIUM 8.4 GM PACKET (NON-FORM) PO (11:09)
[2024-04-05 12:46] LABS: Albumin, Serum 3.5 gm/dL (3.4-4.8); Anion Gap 7 (7-16); BUN/Creatinine Ratio 21 Ratio (12-20); Blood Urea Nitrogen 54 mg/dL (9-23); Calcium 8.5 mg/dL (8.3-10.6); Calcium (Corrected) 8.9 mg/dL (8.5-10.1); Carbon Dioxide 21.7 mMol/L (20.0-31.0); Chloride 113 mMol/L (98-107); Creatinine (Component) 2.6 mg/dL (0.6-1.3); Estimated Creatinine Clearance 36.3 mL/min (>60); Glucose 121 mg/dL (74-106); Osmolality,Calculated 298 (275-295); Phosphorous 5.2 mg/dL (2.4-5.1); Potassium 5.6 mMol/L (3.4-5.1); Sodium 142 mMol/L (136-145); eGFR 27 See Note
--- NOTE | 2024-04-05 13:00 | PC.SS ---
SS follow up note; Patient is pending Nephroligy consult. Patient is currently on Bumex.
[2024-04-05 13:02] LABS: Ferritin 90 ng/mL (10.5-307.3)
--- NOTE | 2024-04-05 13:12 | ESPR_ITS ---
<Statement entered by Robert Choi MD - 04/05/24 14:57> Patient was seen and examined at the bedside. Patient's potassium was elevated at 5.8 therefore hyperkalemia cocktail was given. Patient was given insulin breathing treatments, Veltassa. Sputum cultures are growing GPC. Kidney functions remained elevated at 2.6. Patient had a net -760 cc urine output on Bumex 2 mg IV twice daily. A1c came at 6.4. Blood pressure was improved to 159/93. Patient was saturating 90% on 5 L NC. Will continue to diurese him and defer thoracentesis for now awaiting clinical improvement with diuresis.Repeat potassium was 5.6 there for another hyperkalemia cocktail was given including insulin IV 5 units with amp of D50 and Veltassa. All labs and orders were reviewed. I saw and examined the patient, and I agree with current management stated by Dr Pepe MD,PGY1. Plan of care was discussed with the attending physician and resident physician. Disclaimer: Despite multiple revisions, due to the dictation software being used, the document bellow may not be free of grammatical errors including phonetic/typographic errors. However, this does not deter from our commitment to providing health care in the patient's best interest in mind. Dr. Jimbo MD, PGY 2 Documentation for date of: 04/05/24 Subjective Subjective Interval history: No overnight events. Patient had a total of 600 input/1000 output with next of -340. Patient had improved dyspnea. Patient denied chest pain. Persistent Hyperkalemia, follow up with BMP at 8:00 to check on K. Echo pending. Metabolic Acidosis improved. HCO3 at 21.7. Slight improvement of glands penis and scrotum. ANASARCA still present at patient's abdomen. Cr with little improvement. GFR remains unchanged. Consider PT for pateint. Exam Vital Signs Temp Pulse Resp BP Pulse Ox O2 Del Method O2 Flow Rate 97.3 F 74 20 136/75 H 100 Nasal Cannula 2 04/05/24 08:00 04/05/24 09:26 04/05/24 09:26 04/05/24 08:32 04/05/24 09:26 04/05/24 08:00 04/05/24 09:26 Narrative Exam General Appearance: Alert & Oriented X3, well-nourished male who is lying in bed in mild distress with ANASARCA extending from abdomen to scrotum, and lower extremities HEENT: Skull symmetrical and atraumatic. Conjunctivae pin and moist. Pupils equal, round, reactive to light and accommodation (PERRL). External ear without lesion or discharge. Straight, nares patient, mucosa pink, no discharge. No thyroid nodule appreciated. No cervical lymphadenopathy. Cardio: Normal Rate and Rhythm with S1 and S2 heart sounds. No murmurs or extra heart sounds auscultated. No bruits on carotid auscultation. Peripheral edema +3. JVD. Lungs: Symmetric with good expansion. Chest and back non-tender. Breath sounds vesicular with improved crackles Abdomen: Non-tender, distended, hypoactive bowel sounds secondary to fluid status Neuro: Alert, cooperative, oriented to person, place, and time. Speech clear. CN grossly intact. Upper motor strength 5/5 and Lower motor strength 5/5. Sensation intact. Objective Labs 04/06/24 07:00 04/06/24 10:09 Labs: Laboratory Results - last 24 hr 04/04/24 04/04/24 04/05/24 15:30 19:23 05:53 WBC 8.1 8.1 RBC 3.69 L 3.45 L Hgb 9.8 L 9.1 L Hct 32.0 L 30.2 L MCV 87 88 MCH 26.6 26.4 MCHC 30.6 L 30.1 L RDW Std Deviation 59.6 H 60.0 H Plt Count 234 223 Neut % (Auto) 70 70 Lymph % (Auto) 16 15 [place] % (Auto) 10 11 Eos % (Auto) 4 3 Baso % (Auto) 0 0 Neut # (Auto) 5.7 5.7 Lymph # (Auto) 1.3 1.2 [place] # (Auto) 0.8 0.9 H Eos # (Auto) 0.3 0.2 Baso # (Auto) 0.0 0.0 Immature Gran # (Auto) 0.04 H 0.03 H Absolute Nucleated RBC 0.00 0.00 Immature Gran % 1 H 0 Nucleated RBC % 0 0 PT 11.0 11.5 INR 1.0 1.1 APTT 27.3 27.2 Sodium 140 141 143 Potassium 6.5 H* 6.2 H* 5.8 H Chloride 113 H 114 H 115 H Carbon Dioxide 18.2 L 19.1 L 19.4 L Anion Gap 9 8 9 BUN 54 H 56 H 58 H Creatinine 2.7 H 2.6 H 2.6 H Estim Creat Clear Calc 34.9 L 36.3 L 36.3 L eGFR 26 L 27 L 27 L BUN/Creatinine Ratio 20 22 H 22 H Glucose 154 H [address] Glu mg/dL 137 H Hemoglobin A1c 6.4 H Calculated Osmolality 297 H 295 301 H Calcium 8.1 L 8.2 L 8.3 Corrected Calcium 8.6 8.7 8.9 Phosphorus 4.4 4.4 4.9 Magnesium 2.7 H 2.6 Ferritin Total Bilirubin 0.3 0.4 AST 15 11 ALT 28 22 Alkaline Phosphatase 234 H 200 H D Lactate Dehydrogenase 233 Troponin I < 0.020 B-Natriuretic Peptide 1117 H* Total Protein 6.7 6.2 Albumin 3.4 3.4 3.3 L Globulin 3.3 2.9 Albumin/Globulin Ratio 1.0 L 1.1 L Triglycerides 71 Cholesterol 108 L LDL Cholesterol, Calc 63 HDL Cholesterol 31 L Cholesterol/HDL Ratio 3.5 L Lipase 27 TSH 4.60 04/05/24 12:17 WBC RBC Hgb Hct MCV MCH MCHC RDW Std Deviation Plt Count Neut % (Auto) Lymph % (Auto) [place] % (Auto) Eos % (Auto) Baso % (Auto) Neut # (Auto) Lymph # (Auto) [place] # (Auto) Eos # (Auto) Baso # (Auto) Immature Gran # (Auto) Absolute Nucleated RBC Immature Gran % Nucleated RBC % PT INR APTT Sodium 142 Potassium 5.6 H Chloride 113 H Carbon Dioxide 21.7 Anion Gap 7 BUN 54 H Creatinine 2.6 H Estim Creat Clear Calc 36.3 L eGFR 27 L BUN/Creatinine Ratio 21 H Glucose [address] Glu mg/dL Hemoglobin A1c Calculated Osmolality 298 H Calcium 8.5 Corrected Calcium 8.9 Phosphorus 5.2 H Magnesium Ferritin 90 Total Bilirubin AST ALT Alkaline Phosphatase Lactate Dehydrogenase Troponin I B-Natriuretic Peptide Total Protein Albumin 3.5 Globulin Albumin/Globulin Ratio Triglycerides Cholesterol LDL Cholesterol, Calc HDL Cholesterol Cholesterol/HDL Ratio Lipase TSH Quality Measures Quality Measures none Assessment & Plan Assessment Current Active Medications: Generic Name Dose Route Start Last Admin Trade Name Freq PRN Reason Stop Dose Admin Acetaminophen 650 mg 04/04/24 17:24 Acetaminophen 325 Mg Tablet PO 05/04/24 17:23 Q6H PRN Mild Pain 1-3 or Fever >100.4 Atorvastatin Calcium 20 mg 04/04/24 21:00 04/04/24 21:22 Atorvastatin Calcium 20 Mg Tablet PO 05/04/24 20:59 20 mg HS ANAMARIA Administration Bumetanide 2 mg 04/05/24 09:00 04/05/24 08:32 Bumetanide Inj 0.25 Mg/Ml Vial 4 Ml IVP 05/05/24 08:59 2 mg BID ANAMARIA Administration Dextrose 25 ml 04/04/24 17:32 Dextrose 50%-Water Inj 50 Ml Syringe IV 05/04/24 17:31 Q15MIN PRN BG 50-70 responsive npo pt Dextrose 50 ml 04/04/24 17:32 Dextrose 50%-Water Inj 50 Ml Syringe IV 05/04/24 17:31 Q15MIN PRN BG <50 OR BG <70 & pt unresponsive Doxycycline Hyclate 100 mg 04/05/24 10:30 04/05/24 10:30 Doxycycline 100 Mg Tablet PO 04/12/24 10:29 100 mg BID ANAMARIA Administration Glucagon 1 mg 04/04/24 17:32 Glucagon Inj 1 Mg Vial IM Q15MIN PRN BG <70, and no IV access Heparin Sodium (Porcine) 5,000 unit 04/04/24 21:00 04/05/24 11:05 Heparin Sod Inj 5000 Unit/Ml Vial SC 04/18/24 20:59 Not Given Q12HR ANAMARIA Hydralazine HCl 10 mg 04/04/24 17:35 04/04/24 18:30 Hydralazine Inj 20 Mg/Ml Vial IV 05/04/24 17:34 10 mg Q4HR PRN Administration Hypertension Hydralazine HCl 50 mg 04/04/24 22:00 04/05/24 05:14 Hydralazine Hcl 25 Mg Tablet PO 05/04/24 21:59 50 mg TID ANAMARIA Administration Ceftriaxone Sodium/Dextrose 50 mls @ 100 mls/hr 04/04/24 17:30 04/05/24 08:32 Rocephin/D5w 1gm Iv Premix IV 04/11/24 17:29 100 mls/hr QDAY ANAMARIA Administration Insulin Human Lispro 0 unit 04/04/24 21:00 04/05/24 11:17 Insulin Lispro (Admelog) 1 Unit/0.01 Ml Unit SC 05/04/24 20:59 Not Given ACHS ANAMARIA Protocol Ondansetron HCl 4 mg 04/04/24 17:24 Ondansetron Inj 2 Mg/Ml Inj 2 Ml IV 05/04/24 17:23 Q6H PRN NAUSEA OR VOMITING Protocol Sennosides 1 tab 04/04/24 17:24 Senna Tablet PO 05/04/24 17:23 QDAY PRN constipation Protocol Sodium Chloride 3 ml 04/04/24 16:42 Sodium Chloride Rt Silvina 0.9% 3 Ml Nebu INH 05/04/24 16:41 PRN PRN SOLN Plan Patient is a 63-year-old male with a past medical history of hypertension, hyperlipidemia, diabetes mellitus type 2 insulin-dependent on trulicity 1.5 mg subq once a week, chronic kidney disease anasarca, HFpEF 55 to 50% (01/26/2024) who was admitted for acute hypoxic respiratory failure, secondary to acute on chronic CHF exacerbation w/ ANASARCA. #Acute hypoxic respiratory failure #CHF exacerbation #Congestive Heart Failure HFpEF 55% to 50% (01/2024) #Pleural Effusion #ANASARCA Etiology: likely secondary to cardiomyopathy, worsened by cardio-renal syndrome with worsening anasarca. Positive for orthopnea , dyspnea, and PNO. Requiring oxygen on admission secondary to increased work of breathing. Please consider Bipap if needed or ABG for worsening work of breathing. NO thoracentesis planned. DDx: Less likley secondary to GA given no ST elevation on EKG and no troponin vs PE Wells 1.5 Diagnostics: TSH within limits CT: Mild to Moderate CHF, Prominent Pneumonia right base, Large right moderate left pleural effusion, Cirrhosis, mild ascites, cholelithiasis, Severe Anasarca, Promnent scrotal swelling and hydroceles NYHA Class: IV Plan: -Bumex 2 mg IV QDay, (first dose received in ER) -Holding Carvedilol, consider restarting tomorrow -Echo -Thoracentesis US guided IR- None planned for now -K>4 and Mg >2 -SpO <90%, support PRN -Consider high flow or bipap if shortness of breath worsens or ABG -Daily Weights, Strict Ins and Outs, Fluid Striction (1500), Sodium Restriction 2 grams per day #Hyperkalemia #JOSE MARIA on CKD stage IV #Non-anion gap, Metabolic acidosis, improved Possible JOSE MARIA given acute CHF exacerbation with best Cr for patient recorded at 1.9 which wiley an increas >0.3. BUN/Cr level at 20 likely points to prerenal etioilogy. Worsening CKD can not be ruled out vs obstructive less likely as patient denied decrease urine output. Hyperkalemia secondary to acute kidney injury vs less likely secondary DKA. Please follow on K labs. Moderate Bilateral Non-anion gap Metabolic acidosis likely secondary to RTA 4 (distal) given positive urine gap and hyperkalemia. Renal Parenchymal scar formation (01/29/2024) Plan -Given: Albuerol, Calcium Gluconate, Regular Insulin 5 units, Dextrose 25 ml IV x1 on 04/05/2024 and 04/04/2024; Patiromer 8.4 gm X 1 -Follow up with 8:00 PM labs on 04/05/2024 -Avoid nephrotoxins -Renally dose medication -Monitor Bicarb -electrolytes and protein urine -consult Dr. Main, appreciate recommendations. #Diabetes Mellitus Type 2 Insulin dependent Previous A1c 6.2% on 01/2024 with a glucose on admission of 154. A1c 6.4% (04/05/2024) plan -Sliding scale -Monitor glucose in the AM #Hypertension #Hypertensive Urgency, resolved Patient's home medication of Hydralazine 100 mg TID. Start at a lower dose of hydralazine 50 mg TID. Plan -Hydralazine PRN -Hydralazine 50 mg TID -Please follow if need be add amlodipine #Hyperlipedimia Continue home medication of Atorvastatin 20 mg HS oral. Diagnostics: ASCVD 15.3% of cardiovascular event in the next 10 yrs. Moderate to high intensity statin recommended as risk >7.5% Plan -Atorvastatin 20 mg HS (moderate) #Decomensated Cirrhosis with Ascites Patient stated he has a history of remote alcohol use but denied excessive use. Negative Hepatisis. Negative HIV (01/28/2024). Alcohol <3.0 Consider MASH as BMI 35.0 with history of diabetes. Plan -Consider paracentesis -Continue to monitor #Normocytic Anemia, stable Patient has an extensive history of normocytic anemia likely secondary to chronic inflammation vs CKD history vs iron deficiency less likely as not microcytic, may consider FOBT. Ferritin elevated. Diagnostics: Hgb 9.1 and Hct 30.2 MCV 88 Ferritin elevated Plan: Iron Panel no acute intervention planned. consider EPO by Nephrololgy Health Maintenance: Disp: Pt is currently admitted to floors for further management of CHF exacerbation, awaiting echo. FEN: low carb consistent, Fluid restricted 1500, and 2 gm per day DVT: on subQ heparin-holding for thoracentesis Code: Full code - The patient's plan was discussed with attending Dr. Amaro and senior residents Dr. Jimbo Cantu MD PGY1 Internal Medicine Attending Provider Attestation/Addendum I attest that I was physically present for the evaluation, physical examination, lab and imaging review of the patient with the residents. I discussed the case with the residents and agree with the findings and plans of care as documented above. At bedside today, patient appears much comfortable. Denies any new complaints, saturating well on 2 L nasal cannula. Continues to be on IV Bumex 2 mg twice daily, has been having good urinary output.? Potassium level has been slowly going down.? We will add Veltassa today.? Patient did receive hyperkalemia medication along with Kayexalate overnight.? Renal function remains the same, we will monitor closely. Win Amaro MD
[2024-04-05] MEDS: ATORVASTATIN CALCIUM 20 MG TABLET PO (21:08)
[2024-04-05 21:25] LABS: Albumin, Serum 3.2 gm/dL (3.4-4.8); Anion Gap 9 (7-16); BUN/Creatinine Ratio 21 Ratio (12-20); Blood Urea Nitrogen 57 mg/dL (9-23); Calcium 8.4 mg/dL (8.3-10.6); Carbon Dioxide 21.5 mMol/L (20.0-31.0); Chloride 112 mMol/L (98-107); Creatinine (Component) 2.7 mg/dL (0.6-1.3); Estimated Creatinine Clearance 34.9 mL/min (>60); Glucose 118 mg/dL (74-106); Osmolality,Calculated 299 (275-295); Phosphorous 5.5 mg/dL (2.4-5.1); Potassium 5.6 mMol/L (3.4-5.1); Sodium 142 mMol/L (136-145); eGFR 26 See Note
[2024-04-06] VITALS (25 sets, daily range): BP systolic 138–203; BP diastolic 71–109; PULSE 68–78; RESP 11–20; TEMP 36.1–36.7; O2SAT 96–100; BMI 35.0
[2024-04-06] MEDS: hydrALAZINE HCL 25 MG TABLET 50 MG PO ×3 (05:18→21:26)
[2024-04-06 07:20] LABS: Basophils % (Auto) 0 % (0-2.5); Eosinophils # (Auto) 0.2 Thou/mm3 (0.0-0.5); Eosinophils % (Auto) 4 % (0-10); Hematocrit 31.4 % (41.0-53.0); Hemoglobin 9.4 g/dL (13.5-16.0); Immature Granulocytes % (Auto) 0 % (0-0); Immature Granulocytes Auto 0.01 Thou/mm3 (0.00-0.00); Lymphocytes # (Auto) 1.3 Thou/mm3 (1.0-4.8); Lymphocytes % (Auto) 19 % (10-50); Mean Corpuscular HGB Conc 29.9 g/dl (31.0-37.0); Mean Corpuscular Hemoglobin 26.5 pg (25.0-35.0); Mean Corpuscular Volume 89 fL (80-100); Monocytes # (Auto) 0.6 Thou/mm3 (0.0-0.8); Monocytes % (Auto) 10 % (0-12); Neutrophils # (Auto) 4.3 Thou/mm3 (1.8-7.7); Neutrophils % (Auto) 67 % (37-80); Nucleated Red Blood Cell % 0 /100 WBC (0); Platelet Count 118 Thou/mm3 (140-440); RDW Standard Deviation 59.9 fL (35.1-43.9); Red Blood Count 3.55 Miln/mm3 (4.50-5.90); White Blood Count 6.4 Thou/mm3 (3.8-10.6)
[2024-04-06 07:59] LABS: Alanine Aminotransferase 20 U/L (10-49); Albumin, Serum 3.3 gm/dL (3.4-4.8); Albumin/Globulin Ratio 1.1 (1.2-2.2); Alkaline Phosphatase 191 U/L (46-116); Anion Gap 10 (7-16); Aspartate Amino Transferase 12 U/L (0-34); BUN/Creatinine Ratio 23 Ratio (12-20); Bilirubin,Total 0.3 mg/dL (0.3-1.2); Blood Urea Nitrogen 62 mg/dL (9-23); Calcium 8.4 mg/dL (8.3-10.6); Chloride 112 mMol/L (98-107); Creatinine (Component) 2.7 mg/dL (0.6-1.3); Estimated Creatinine Clearance 34.9 mL/min (>60); Globulin 3.1 gm/dL (2.3-3.5); Glucose 96 mg/dL (74-106); Magnesium 2.5 mg/dL (1.6-2.6); Osmolality,Calculated 300 (275-295); Phosphorous 5.7 mg/dL (2.4-5.1); Potassium 5.7 mMol/L (3.4-5.1); Sodium 142 mMol/L (136-145); Total Protein 6.4 gm/dL (5.7-8.2); eGFR 26 See Note
--- NOTE | 2024-04-06 08:46 | XR_ITS ---
Ultrasound-guided needle placement right internal jugular vein Temporary dialysis catheter insertion, percutaneous Fluoroscopy AP chest, portable, single view. Date and time of procedure: April 06, 2024 1220 hours INDICATIONS: Acute renal insufficiency need for stat dialysis today Informed consent provided Technique: A timeout was completed verifying correct patient, procedure, site, positioning, and special equipment if applicable. The patient was placed in a dependent position appropriate for dialysis catheter placement based on the vein to be cannulated. The patient'sright groin was prepped and draped in sterile fashion. Maximum Sterile Barrier Technique used including cap, mask, sterile gown, sterile gloves, and sterile full body drape. If ultrasound technique used: sterile gel and sterile probe covers. Hand Hygiene performed using proper scrub, soap and water, or alcohol-based hand rub. 1% lidocaine was used to anesthetize the surrounding skin area The [employer] portable ultrasound apparatus utilized to confirm patency of the right internal jugular vein Utilizing ultrasonographic guidance successful 21-gauge needle puncture into the right internal jugular vein Ultrasound images were recorded and stored. Vessel micropuncture was performed with 21-gauge needle. 0.18 wire guide is introduced into the vein. 0.18 wire is introduced into the vena cava under fluoroscopy. Dilators placed over the wire guide followed by a 13 Italian 15 cm temporary Vas-Cath. The catheter is sutured in place to the skin and a sterile dressing applied. Perfusion to the extremity distal to the point of catheter insertion is checked and found to be adequate Attending radiologist was present for the entire procedure Estimated blood loss2 cc. The patient tolerated the procedure well and there were no complications Impression: Successful ultrasound-guided needle placement brain Successful temporary dialysis catheter insertion, percutaneous Fluoroscopy 0.1 minute radiation dose 3.76 milligray 1 spot fluoroscopic chest film. AP chest performed at completion procedure demonstrates satisfactory position dialysis catheter. May use dialysis catheter.
--- NOTE | 2024-04-06 09:00 | XR_ITS ---
Examination: AP chest single view Technique one AP portable upright chest single view Exam date and time: April 06, 2024 0526 hours Comparison April 04, 2024 INDICATIONS: Difficulty breathing this week FINDINGS: Moderate CHF Enlarged cardiac contour with prominent vascular congestion and perihilar edema Large layered right pleural effusion IMPRESSION: Moderate CHF with large right pleural effusion
--- NOTE | 2024-04-06 09:06 | PD.RESPRO ---
Documentation for date of: 04/06/24 Subjective Subjective Interval history: Colton Sandoval is a 63-year-old male with a PMHx of HTN, HLD, insulin-dependent T2DM, HFpEF (EF 50-55% on 01/2024), and CKD stage IV presented on 04/04 for progressive dyspnea. Symptoms started three weeks ago with associated bilateral lower extremity edema, orthopnea, and paroxysmal nocturnal dyspnea. States that he sleeps with three pillows at night. Denies muscle pain, weakness, paresthesias, palpitations. Reports being compliant with his medications and follows-up with [facility]. Of note, patient admitted on 01/2024 for acute decompensated HF exacerbation with component of sepsis secondary to pneumonia and states that he does not follow-up with a supervisor knitting outpatient. In ED, BP 170/86, RR 31, on 4 L NC saturating 97%. Labs significant for hemoglobin 9.8 (BL 7.5), K 6.5, HCO3 18.2, BUN 54, Cr 2.7 (at BL), GFR 26 BNP 1100, troponin negative. CT C/A/P: Mild/moderate CHF, pneumonia on the right base, large right/moderate left effusions, cirrhosis, mild ascites, severe anasarca. EKG without peaked T waves, prolonged QRS complexes, or flattened P waves. Given calcium gluconate, albuterol and insulin + dextrose in ED, with repeat K decreasing to 6.2 (from 6.5). Also given 2 mg IV bumex. Admitted for management of AHRF secondary to decompensated CHF exacerbation. Nephrology consulted for hyperkalemia. 04/05: Seen and examined in telemetry. States that he is still short of breath but is not worse compared to yesterday. He is making good urine with 1 L urine output since being admitted yesterday, currently on 2 mg IV bumex BID. K downtrending from 6.5 -> 6.2 -> 5.8. Since ED, has received Kayexalate x1, and another round of albuterol/insulin + dextrose/calcium gluconate. 04/06: Seen and examined in telemetry. Today he does not have any complaints. Spoke to him regarding need for temporary dialysis and agrees to plan. Order placed for TDC placement and made NPO. Also placed orders for PPD, HIV and hepatitis panels and spoke to social media assistant to inform of need for outpatient dialysis chair. K mildly increased from 5.6 to 5.7 while on IV bumex. Continues to have good urine output of 1.9 L in 24 hours. Exam Vital Signs Temp Pulse Resp BP Pulse Ox O2 Del Method O2 Flow Rate 97.8 F 74 20 166/93 H 98 Nasal Cannula 2 04/06/24 08:00 04/06/24 08:00 04/06/24 08:00 04/06/24 08:00 04/06/24 08:00 04/06/24 08:00 04/06/24 08:00 Narrative Exam General: AOx3, no mild distress, slightly diaphoretic, able to speak full sentences HEENT: NC/AT, mucous membranes moist, bilateral sclera anicteric Cardiovascular: regular rate and rhythm, S1/S2 present, no murmurs appreciated Pulmonary: diminished breath sounds bilaterally Abdominal: distended, firm, non-tender Musculoskeletal: 2+ bilateral pitting edema up to knees Skin: healed excoriations in upper extremities/shoulders Objective Labs 04/07/24 09:50 04/07/24 09:50 Labs: Laboratory Results - last 24 hr 04/05/24 04/05/24 04/06/24 12:17 20:38 07:00 WBC 6.4 RBC 3.55 L Hgb 9.4 L Hct 31.4 L MCV 89 MCH 26.5 MCHC 29.9 L RDW Std Deviation 59.9 H Plt Count 118 L D Neut % (Auto) 67 Lymph % (Auto) 19 [place] % (Auto) 10 Eos % (Auto) 4 Baso % (Auto) 0 Neut # (Auto) 4.3 Lymph # (Auto) 1.3 [place] # (Auto) 0.6 Eos # (Auto) 0.2 Baso # (Auto) 0.0 Immature Gran # (Auto) 0.01 H Absolute Nucleated RBC 0.00 Immature Gran % 0 Nucleated RBC % 0 Sodium 142 142 142 Potassium 5.6 H 5.6 H 5.7 H Chloride 113 H 112 H 112 H Carbon Dioxide 21.7 21.5 20.0 Anion Gap 7 9 10 BUN 54 H 57 H 62 H Creatinine 2.6 H 2.7 H 2.7 H Estim Creat Clear Calc 36.3 L 34.9 L 34.9 L eGFR 27 L 26 L 26 L BUN/Creatinine Ratio 21 H 21 H 23 H Glucose 121 H 118 H 96 Calculated Osmolality 298 H 299 H 300 H Calcium 8.5 8.4 8.4 Corrected Calcium 8.9 9.0 9.0 Phosphorus 5.2 H 5.5 H 5.7 H Magnesium 2.5 Ferritin 90 Total Bilirubin 0.3 AST 12 ALT 20 Alkaline Phosphatase 191 H Total Protein 6.4 Albumin 3.5 3.2 L 3.3 L Globulin 3.1 Albumin/Globulin Ratio 1.1 L Quality Measures Quality Measures none Assessment & Plan Assessment Current Active Medications: Generic Name Dose Route Start Last Admin Trade Name Freq PRN Reason Stop Dose Admin Acetaminophen 650 mg 04/04/24 17:24 Acetaminophen 325 Mg Tablet PO 05/04/24 17:23 Q6H PRN Mild Pain 1-3 or Fever >100.4 Atorvastatin Calcium 20 mg 04/04/24 21:00 04/05/24 21:08 Atorvastatin Calcium 20 Mg Tablet PO 05/04/24 20:59 20 mg HS ANAMARIA Administration Bumetanide 2 mg 04/05/24 09:00 04/05/24 21:09 Bumetanide Inj 0.25 Mg/Ml Vial 4 Ml IVP 05/05/24 08:59 2 mg BID ANAMARIA Administration Dextrose 25 ml 04/06/24 08:40 Dextrose 50%-Water Inj 50 Ml Syringe IV 05/06/24 08:39 Q15MIN PRN BG 50-70 responsive npo pt Dextrose 50 ml 04/06/24 08:40 Dextrose 50%-Water Inj 50 Ml Syringe IV 05/06/24 08:39 Q15MIN PRN BG <50 OR BG <70 & pt unresponsive Doxycycline Hyclate 100 mg 04/05/24 10:30 04/05/24 21:08 Doxycycline 100 Mg Tablet PO 04/12/24 10:29 100 mg BID ANAMARIA Administration Glucagon 1 mg 04/04/24 17:32 Glucagon Inj 1 Mg Vial IM Q15MIN PRN BG <70, and no IV access Glucagon 1 mg 04/06/24 08:40 Glucagon Inj 1 Mg Vial IM Q15MIN PRN BG <70, and no IV access Hydralazine HCl 10 mg 04/04/24 17:35 04/04/24 18:30 Hydralazine Inj 20 Mg/Ml Vial IV 05/04/24 17:34 10 mg Q4HR PRN Administration Hypertension Hydralazine HCl 50 mg 04/04/24 22:00 04/06/24 05:18 Hydralazine Hcl 25 Mg Tablet PO 05/04/24 21:59 50 mg TID ANAMARIA Administration Ceftriaxone Sodium/Dextrose 50 mls @ 100 mls/hr 04/04/24 17:30 04/05/24 08:32 Rocephin/D5w 1gm Iv Premix IV 04/11/24 17:29 100 mls/hr QDAY ANAMARIA Administration Insulin Human Lispro 0 unit 04/04/24 21:00 04/06/24 07:34 Insulin Lispro (Admelog) 1 Unit/0.01 Ml Unit SC 05/04/24 20:59 Not Given ACHS ANAMARIA Protocol Ondansetron HCl 4 mg 04/04/24 17:24 Ondansetron Inj 2 Mg/Ml Inj 2 Ml IV 05/04/24 17:23 Q6H PRN NAUSEA OR VOMITING Protocol Sennosides 1 tab 04/04/24 17:24 Senna Tablet PO 05/04/24 17:23 QDAY PRN constipation Protocol Sevelamer Carbonate 800 mg 04/06/24 12:00 Sevelamer Carbonate 800 Mg Tablet PO 05/06/24 11:59 TIDWM ANAMARIA Sodium Chloride 3 ml 04/04/24 16:42 Sodium Chloride Rt Silvina 0.9% 3 Ml Nebu INH 05/04/24 16:41 PRN PRN SOLN Plan Colton Sandoval is a 63-year-old male with a PMHx of HTN, HLD, insulin-dependent T2DM, HFpEF (EF 50-55% on 01/2024), and CKD stage IV who is admitted for management of acute decompensated CHF exacerbation. Nephrology consulted for hyperkalemia. #Hyperkalemia Initially presents with potassium of 6.5 that has since down trended to 5.8 after receiving albuterol, insulin plus dextrose, and calcium gluconate. Has also received Kayexalate x 1 and currently on IV Bumex with good urine output. Given that patient did not have EKG changes associated with hyperkalemia (peaked T waves, prolonged QRS complex, flattened P waves) and does not endorse muscle weakness/paralysis, does not require emergent therapy and serum K can be lowered slowly with diuretics. Has history of uncontrolled diabetes (albeit improved) that likely caused CKD, and likely contributed to hyperkalemia. ? Continue IV bumex so long as patient continues to have good urine output ? May consider GI cation exchangers if K does not improve ? Can also consider upon discharge for maintenance therapy ? Low K diet #CKD stage IV #Diabetic nephropathy vs nephrotic syndrome-3+ protein on urinalysis. Protein creatinine ratio ordered #Cardiorenal syndrome #Normocytic anemia, likely secondary to CKD From previous admission, noted to have 24 urine protein of 2.5 g. Although this does not meet criteria for nephrotic syndrome, it is still overt proteinuria and is likely due to uncontrolled diabetes as stated above. Additionally, patient presents with acute decompensated CHF exacerbation with worsening EF from 60-65% to 50-55%, thus cardiorenal syndrome may also be contributing to renal insult. ? Planned for placement of TDC for temporary dialysis ? software engineer web services informed regarding need for outpatient dialysis chair ? Follow-up PPD, hepatitis panel, and HIV tests ? Avoid nephrotoxic agents ? Renally dose medications ? Strict I/O #Acute decompensated CHF exacerbation #HFpEF (EF 50-55% on 01/2024) #Type 2 diabetes mellitus, insulin-dependent #Hypertension #Hyperlipidemia ? Continue management per primary team ----- Plan discussed with attending physician Dr. Etelvina Lee MD PGY-1 Internal Medicine Attending Provider Attestation/Addendum Patient seen and examined with resident physician Dr. Bowser. Note reviewed, agree with findings and recommendations. Patient with recurrent episodes of congestive heart failure secondary to diabetic nephropathy(cardiorenal syndrome). Diuretic dependent/resistant with significant anasarca, recurrent hyperkalemia. Had a long conversation with patient regarding the need for dialysis to prevent recurrent hospitalizations and to maintain euvolemic state. Patient agreed for dialysis if indicated. Will place dialysis catheter in a.m. and initiate sequential ultrafiltration tomorrow. PPD, hep panel ordered. Outpatient dialysis arrangements to be done.
--- NOTE | 2024-04-06 09:09 | PC.SS ---
Addendum entered by Thuy Garcia 04/06/24 15:53: SS contacted [facility] and they informed SS that they will need Hep B Core IGG core which is included with Hep B core IGM as well as Hep B Core Antibody and Surface Antibody. SS updated Team A to order test. Addendum entered by Thuy Garcia 04/06/24 14:40: SS received a call from Ingris from [facility] in [place] and she informed SS that Insurance did not authorize for patient to get dialysis in their facility. SS sent request through [facility]. Patient is still pending Tunnel cath, TB results and Dialysis sessions for SS to submit to [facility]. Addendum entered by Thuy Garcia 04/06/24 10:09: SS met with patient at bedside to discuss discharge plan. Patient adamant and refusing SNF. He reports his friend could take him to Dialysis. Patient reported he was being followed by HH agency at home for wound care, he believes it was [facility]. Patients does have [employer] care transportation coverage and Ingris from [facility] Dialysis reported Amisha could get patient established with assisting with transportation. Addendum entered by Thuy Garcia 04/06/24 09:11: SS follow up note; SS will need to follow up with patient in regards to discharge plan since patient will be a new dialysis patient. Original Note: SS follow up note; Dr. Choi informed SS that patient would be a new dialysis patient and is being followed by DR. Harrell. SS faxed over clinicals to [facility] in [place]. Pending Dialysis sessions, Tunnel Cath placement and TB test. SS will send to Amisha from [facility] in [place] once available.
[2024-04-06] MEDS: DEXTROSE 50%-WATER INJ 50 ML SYRINGE 100 ML IV (09:10)
[2024-04-06 09:20] LABS: Total Iron Binding Capacity 239 mcg/dL (250-425)
[2024-04-06] MEDS: ALBUTEROL/IPRATROPIUM (Duoneb) RT SOL 3 ML NEBU INH (09:26)
[2024-04-06 09:29] LABS: Iron 27 mcg/dL (65-175); Percent Iron Saturation 11 % (20-55); Unsaturated Iron Binding 212 (225-295)
[2024-04-06] MEDS: INSULIN HUM REGULAR 1 UNIT/0.01 ML (PER UNIT) 5 UNIT IV (09:37)
[2024-04-06] MEDS: cefTRIAXone/D5w 1gm IV premix 50 ML IV (09:38)
[2024-04-06] MEDS: CALCIUM GLUCONATE 10% INJ 1 GM/10 ML VIAL IV (09:38)
[2024-04-06] MEDS: DOXYCYCLINE 100 MG TABLET PO (09:38)
[2024-04-06] MEDS: PATIROMER CALCIUM 8.4 GM PACKET (NON-FORM) PO (09:59)
[2024-04-06] MEDS: BUMETANIDE INJ 0.25 MG/ML VIAL 4 ML 2 MG IVP (10:04)
--- NOTE | 2024-04-06 10:19 | PC.NURSE ---
consulted hospitalist Dr. Renee to clarify order for TDC placement for temp HD. wants patient to have temporary dialysis catheter insertion, no need for permanent tunneled dialysis catheter at this time.
[2024-04-06 10:29] LABS: Hepatitis A Antibody IgM Non Reactive (Non React); Hepatitis B Core Antibody IgM Non Reactive (Non React); Hepatitis B Surface Antigen Non Reactive (Non React); Hepatitis C Antibody Non Reactive (Non React)
--- NOTE | 2024-04-06 11:15 | PC.NURSE ---
Patient transported to cathlab via duglas Ashford RN for temporary catheter placement. Patient awake, alert and oriented with no signs of acute distress.
[2024-04-06 11:17] LABS: INR 1.1 (0.9-1.3); Prothrombin Time 11.5 Seconds (9.0-12.2)
[2024-04-06 11:19] LABS: Anion Gap 9 (7-16); BUN/Creatinine Ratio 21 Ratio (12-20); Blood Urea Nitrogen 58 mg/dL (9-23); Calcium 8.6 mg/dL (8.3-10.6); Carbon Dioxide 20.9 mMol/L (20.0-31.0); Chloride 111 mMol/L (98-107); Creatinine (Component) 2.8 mg/dL (0.6-1.3); Estimated Creatinine Clearance 33.8 mL/min (>60); Glucose 213 mg/dL (74-106); Osmolality,Calculated 303 (275-295); Potassium 5.1 mMol/L (3.4-5.1); Sodium 141 mMol/L (136-145); eGFR 25 See Note
[2024-04-06] MEDS: LIDOCAINE INJ PF 1% 30 ML VIAL 6 ML INFL (13:13)
[2024-04-06] MEDS: HEPARIN SOD LOCK SYR 100 UNIT/ML 500 UNIT STFIELD (13:13)
[2024-04-06] MEDS: hydrALAZINE INJ 20 MG/ML VIAL 10 MG IV ×2 (13:19→19:54)
--- NOTE | 2024-04-06 13:34 | PC.NURSE ---
[id number] patient is awake, alert, breathing unlabored, s/p temporary dialysis catheter insertion to right IJ, dressing dry with no active bleeding, report given to Yan GEORGE, will transfer patient back to room 275
--- NOTE | 2024-04-06 13:45 | PC.NURSE ---
[facility] DORIS [facility]ford. No signs of acute distress- patient is awake, alert and oriented, Right IJ in place. Dressing clean, dry and intact.
[2024-04-06] MEDS: SEVELAMER CARBONATE 800 MG TABLET PO ×2 (14:07→16:48)
[2024-04-06 14:41] LABS: HIV (1&2) Antibody Rapid Non-Reactive
[2024-04-06] MEDS: TUBERCULIN PPD INJ 5 UNIT/0.1 ML DOSE ID (15:01)
--- NOTE | 2024-04-06 15:05 | PC.NURSE ---
motor vehicle parts interpreter [id number] used to explain reason for TB test to patient.
[2024-04-06] MEDS: INSULIN LISPRO (AdmeLOG) 1 UNIT/0.01 ML UNIT SC (16:48)
--- NOTE | 2024-04-06 19:18 | ESPR_ITS ---
<Statement entered by Robert Choi MD - 04/07/24 07:22> I saw and examined the patient, and I agree with current management stated by Dr Pepe MD,PGY1. Plan of care was discussed with the attending physician and resident physician. Disclaimer: Despite multiple revisions, due to the dictation software being used, the document bellow may not be free of grammatical errors including phonetic/typographic errors. However, this does not deter from our commitment to providing health care in the patient's best interest in mind. Dr. Jimbo MD, PGY 2 Documentation for date of: 04/06/24 Subjective Subjective Interval history: No overnight events reported for patient. Potassium this morning was elevated at 5.7. Patient was given hyperkalemia cocktail and after recheck potassium was 5.1. Patient's BUN and creatinine continue to be elevated and low GFR of 25. Ferritin within normal range low iron and low TIBC. Patinet scheudled for tunnel catheter for dialysis. Veltassa x1. PPD and Hep panel ordered. Net -1070/input 880/output 1950. Exam Vital Signs Temp Pulse Resp BP Pulse Ox O2 Del Method O2 Flow Rate 97.6 F 68 20 161/88 H 98 Nasal Cannula 3 04/06/24 16:00 04/06/24 16:00 04/06/24 16:00 04/06/24 16:00 04/06/24 16:00 04/06/24 16:00 04/06/24 16:00 Narrative Exam General Appearance: Alert & Oriented X3, well-nourished male who is lying in bed in mild distress with ANASARCA extending from abdomen to scrotum, and lower extremities HEENT: Skull symmetrical and atraumatic. Conjunctivae pin and moist. Pupils equal, round, reactive to light and accommodation (PERRL). External ear without lesion or discharge. Straight, nares patient, mucosa pink, no discharge. No thyroid nodule appreciated. No cervical lymphadenopathy. Cardio: Normal Rate and Rhythm with S1 and S2 heart sounds. No murmurs or extra heart sounds auscultated. No bruits on carotid auscultation. Peripheral edema +2. JVD, improved. Lungs: Symmetric with good expansion. Chest and back non-tender. Breath sounds vesicular with improved crackles Abdomen: Non-tender, distended, hypoactive bowel sounds secondary to fluid status Neuro: Alert, cooperative, oriented to person, place, and time. Speech clear. CN grossly intact. Upper motor strength 5/5 and Lower motor strength 5/5. Sensation intact. Objective Labs 04/06/24 07:00 04/06/24 10:09 Labs: Laboratory Results - last 24 hr 04/05/24 04/06/24 04/06/24 20:38 07:00 10:09 WBC 6.4 RBC 3.55 L Hgb 9.4 L Hct 31.4 L MCV 89 MCH 26.5 MCHC 29.9 L RDW Std Deviation 59.9 H Plt Count 118 L D Neut % (Auto) 67 Lymph % (Auto) 19 [place] % (Auto) 10 Eos % (Auto) 4 Baso % (Auto) 0 Neut # (Auto) 4.3 Lymph # (Auto) 1.3 [place] # (Auto) 0.6 Eos # (Auto) 0.2 Baso # (Auto) 0.0 Immature Gran # (Auto) 0.01 H Absolute Nucleated RBC 0.00 Immature Gran % 0 Nucleated RBC % 0 PT 11.5 INR 1.1 APTT 28.0 Sodium 142 142 141 Potassium 5.6 H 5.7 H 5.1 D Chloride 112 H 112 H 111 H Carbon Dioxide 21.5 20.0 20.9 Anion Gap 9 10 9 BUN 57 H 62 H 58 H Creatinine 2.7 H 2.7 H 2.8 H Estim Creat Clear Calc 34.9 L 34.9 L 33.8 L eGFR 26 L 26 L 25 L BUN/Creatinine Ratio 21 H 23 H 21 H Glucose 118 H 96 213 H D Calculated Osmolality 299 H 300 H 303 H Calcium 8.4 8.4 8.6 Corrected Calcium 9.0 9.0 Phosphorus 5.5 H 5.7 H Magnesium 2.5 Iron 27 L TIBC 239 L Iron Saturation 11 L Unsat Iron Binding 212 L Total Bilirubin 0.3 AST 12 ALT 20 Alkaline Phosphatase 191 H Total Protein 6.4 Albumin 3.2 L 3.3 L Globulin 3.1 Albumin/Globulin Ratio 1.1 L Hepatitis A IgM Ab Non Reactive Hep Bs Antigen Non Reactive Hep B Core IgM Ab Non Reactive Hepatitis C Antibody Non Reactive HIV 1&2 Antibody Rapid Non-Reactive Quality Measures Quality Measures none Assessment & Plan Assessment Current Active Medications: Generic Name Dose Route Start Last Admin Trade Name Freq PRN Reason Stop Dose Admin Acetaminophen 650 mg 04/04/24 17:24 Acetaminophen 325 Mg Tablet PO 05/04/24 17:23 Q6H PRN Mild Pain 1-3 or Fever >100.4 Atorvastatin Calcium 20 mg 04/04/24 21:00 04/05/24 21:08 Atorvastatin Calcium 20 Mg Tablet PO 05/04/24 20:59 20 mg HS ANAMARIA Administration Bumetanide 2 mg 04/07/24 09:00 Bumetanide Inj 0.25 Mg/Ml Vial 4 Ml IVP 05/07/24 08:59 QDAY ANAMARIA Dextrose 25 ml 04/06/24 08:40 Dextrose 50%-Water Inj 50 Ml Syringe IV 05/06/24 08:39 Q15MIN PRN BG 50-70 responsive npo pt Dextrose 50 ml 04/06/24 08:40 Dextrose 50%-Water Inj 50 Ml Syringe IV 05/06/24 08:39 Q15MIN PRN BG <50 OR BG <70 & pt unresponsive Glucagon 1 mg 04/06/24 08:40 Glucagon Inj 1 Mg Vial IM Q15MIN PRN BG <70, and no IV access Hydralazine HCl 10 mg 04/04/24 17:35 04/06/24 13:19 Hydralazine Inj 20 Mg/Ml Vial IV 05/04/24 17:34 10 mg Q4HR PRN Administration Hypertension Hydralazine HCl 50 mg 04/04/24 22:00 04/06/24 14:07 Hydralazine Hcl 25 Mg Tablet PO 05/04/24 21:59 50 mg TID ANAMARIA Administration Ceftriaxone Sodium/Dextrose 50 mls @ 100 mls/hr 04/04/24 17:30 04/06/24 09:38 Rocephin/D5w 1gm Iv Premix IV 04/11/24 17:29 100 mls/hr QDAY ANAMARIA Administration Insulin Human Lispro 0 unit 04/04/24 21:00 04/06/24 16:48 Insulin Lispro (Admelog) 1 Unit/0.01 Ml Unit SC 05/04/24 20:59 2 unit ACHS ANAMARIA Administration Protocol Ondansetron HCl 4 mg 04/04/24 17:24 Ondansetron Inj 2 Mg/Ml Inj 2 Ml IV 05/04/24 17:23 Q6H PRN NAUSEA OR VOMITING Protocol Sennosides 1 tab 04/04/24 17:24 Senna Tablet PO 05/04/24 17:23 QDAY PRN constipation Protocol Sevelamer Carbonate 800 mg 04/06/24 12:00 04/06/24 16:48 Sevelamer Carbonate 800 Mg Tablet PO 05/06/24 11:59 800 mg TIDWM ANAMARIA Administration Sodium Chloride 3 ml 04/04/24 16:42 Sodium Chloride Rt Silvina 0.9% 3 Ml Nebu INH 05/04/24 16:41 PRN PRN SOLN Plan Patient is a 63-year-old male with a past medical history of hypertension, hyperlipidemia, diabetes mellitus type 2 insulin-dependent on trulicity 1.5 mg subq once a week, chronic kidney disease anasarca, HFpEF 55 to 50% (01/26/2024) who was admitted for acute hypoxic respiratory failure, secondary to acute on chronic CHF exacerbation w/ ANASARCA. #s/p tunnel catheter on 04/06/2024 #Hyperkalemia #JOSE MARIA on CKD stage IV #CKD stage IV #Non-anion gap, Metabolic acidosis, improved Possible JOSE MARIA given acute CHF exacerbation with best Cr for patient recorded at 1.9 which wiley an increase >0.3. BUN/Cr level at 20 likely points to prerenal etioilogy. Worsening CKD can not be ruled out likely secondary to diabetic nephropathy vs obstructive less likely as patient denied decrease urine output. Hyperkalemia secondary to acute kidney injury vs less likely secondary DKA. Please follow on K labs. Moderate Bilateral .Non-anion gap Metabolic acidosis likely secondary to RTA 4 (distal) given positive urine gap and hyperkalemia. Renal Parenchymal scar formation (01/29/2024) Plan for dialysis. Plan -Given: Albuerol, Calcium Gluconate, Regular Insulin 5 units, Dextrose 25 ml IV x1 on 04/05/2024 and 04/04/2024; Patiromer 8.4 gm X 1; given a second time 04/06/2024 -Tunnel Catheter -PPD and Hepatitis Panel, including send out -Dialysis tomorrow -Avoid nephrotoxins -Renally dose medication -Monitor Bicarb -electrolytes and protein urine -consult Dr. Main, appreciate recommendations. #Acute hypoxic respiratory failure,improved #CHF exacerbation #Congestive Heart Failure HFpEF 55% to 50% (01/2024) #Pleural Effusion #ANASARCA Etiology: likely secondary to cardiomyopathy, worsened by cardio-renal syndrome with worsening anasarca. Positive for orthopnea , dyspnea, and PNO. Requiring oxygen on admission secondary to increased work of breathing. Please consider Bipap if needed or ABG for worsening work of breathing. NO thoracentesis planned. DDx: Less likley secondary to CA given no ST elevation on EKG and no troponin vs PE Wells 1.5 Diagnostics: TSH within limits CT: Mild to Moderate CHF, Prominent Pneumonia right base, Large right moderate left pleural effusion, Cirrhosis, mild ascites, cholelithiasis, Severe Anasarca, Promnent scrotal swelling and hydroceles Echo (): HFpEF 50-55% NYHA Class: IV Plan: -Bumex 2 mg IV QDay, (first dose received in ER) -Holding Carvedilol, consider restarting tomorrow -Thoracentesis US guided IR- None planned for now -K>4 and Mg >2 -SpO <90%, support PRN -Consider high flow or bipap if shortness of breath worsens or ABG -Daily Weights, Strict Ins and Outs, Fluid Striction (1500), Sodium Restriction 2 grams per day #Diabetes Mellitus Type 2 Insulin dependent Previous A1c 6.2% on 01/2024 with a glucose on admission of 154. A1c 6.4% (04/05/2024) plan -Sliding scale -Monitor glucose in the AM #Hypertension #Hypertensive Urgency, resolved Patient's home medication of Hydralazine 100 mg TID. Start at a lower dose of hydralazine 50 mg TID. Plan -Hydralazine PRN -Hydralazine 50 mg TID -Please follow if need be add amlodipine #Hyperlipedimia Continue home medication of Atorvastatin 20 mg HS oral. Diagnostics: ASCVD 15.3% of cardiovascular event in the next 10 yrs. Moderate to high intensity statin recommended as risk >7.5% Plan -Atorvastatin 20 mg HS (moderate) #Decomensated Cirrhosis with Ascites Patient stated he has a history of remote alcohol use but denied excessive use. Negative Hepatisis. Negative HIV (01/28/2024). Alcohol <3.0 Consider MASH as BMI 35.0 with history of diabetes. Plan -Consider paracentesis -Continue to monitor #Normocytic Anemia, stable Patient has an extensive history of normocytic anemia likely secondary to chronic inflammation vs CKD history vs iron deficiency less likely as not microcytic, may consider FOBT. Ferritin elevated. Iron levels low with low TIBC likely Iron deficiency. Diagnostics: Hgb 9.1 and Hct 30.2 MCV 88 Ferritin elevated Iron level low and low TIBIC Plan: no acute intervention planned. consider EPO by Nephrololgy Health Maintenance: Disp: Pt is currently admitted to floors for further management of CHF exacerbation, awaiting dialysis and chair FEN: low carb consistent, Fluid restricted 1500, and 2 gm per day DVT: holding heparin s/p tunnel catheter Code: Full code - The patient's plan was discussed with attending Dr. Aponte and senior residents Dr. Jimbo Cantu MD PGY1 Internal Medicine Attending Provider Attestation/Addendum I have examined the patient, reviewed labs and imaging findings, discussed the case with the resident(s), and reviewed entered orders. I agree with the plan of care as outlined in this note, with these additional summaries/recommendations: Patient seen at bedside. No acute overnight events. Patient has persistent hyperkalemia in the setting of CKD. Medical team discussed with nephrology and patient will go for tunneled dialysis catheter. Patient was given hyper-K cocktail this morning and repeat potassium normal. Patient is net negative over 1.5 L for CHF exacerbation. Continue diuresis & GDMT. Heparin placed on hold given drop in platelets. Continue insulin sliding scale for diabetes mellitus type 2 repeat hematology and chemistry panel in AM. Continue Rocephin for pneumonia. Repeat hematology and chemistry panel in AM. Dr. Aponte
[2024-04-06 20:09] LABS: Collection Type, Urine Clean Catch
[2024-04-06 20:33] LABS: Bilirubin,Urine Negative (Negative); Blood,Urine Trace (Negative); Clarity,Urine Clear (Clear/Hazy); Color,Urine Lt-Yellow (Lt Yel-Yel); Glucose, Urine Trace (Negative); Hyaline Casts,Urine 1 /hpf (0-1); Ketones,Urine Negative (Negative); Leukocyte Esterase,Urine Negative (Negative); Nitrite,Urine Negative (Negative); PH,Urine 5.5 (5.0-7.0); Protein,Urine 3+ (Neg - Trace); RBC,Urine 14 /hpf (0-3); Specific Gravity,Urine 1.012 (1.001-1.035); Squamous Epithelial Cell,Urine < 1 /hpf (0-5); Urobilinogen,Urine Negative mg/dL (0.0-1.0); WBC,Urine 1 /hpf (0-5)
[2024-04-06] MEDS: ATORVASTATIN CALCIUM 20 MG TABLET PO (20:38)
[2024-04-06] MEDS: EPINEPHrine INJ 1 MG/ML AMP SC (22:13)
--- NOTE | 2024-04-06 22:45 | PC.NURSE ---
found the patient IJ catheter bleeding, dressing is soak with blood and theres clot on it. Dr Dominguez came to see the patient and ordered an epineprine poured on a gauze and put pressure on it. after 15 mins theres still light bleeding ice pack applied. patient blood pressure is !77/99 Dr dominguez is aware and said okay. and Dr Dominguez also ordered HGB stat but patient refused and doctor is aware.
[2024-04-06 23:05] LABS: Amphetamine/Methamp Scrn,U Negative (Negative); Barbiturate Screen,Urine Negative (Negative); Benzodiazepines Screen,Urine Negative (Negative); Benzoylecgonine Screen, Ur Negative (Negative); Creatinine,Random Urine 51 mg/dL (30-125); Fentanyl Screen,Urine Negative (Negative); Opiate Screen,Urine Negative (Negative); Potassium,Urine Random 23 mMol/L (12-62); Protein Total, Random Urine > 250 mg/dL (1-14); Sodium,Urine Random 94.2 mMol/L (20.0-110.0); THC Screen,Urine Negative (Negative)
[2024-04-07] VITALS (23 sets, daily range): BP systolic 148–197; BP diastolic 75–125; PULSE 69–79; RESP 10–21; TEMP 36.2–36.8; O2SAT 93–100; BMI 35.0
--- NOTE | 2024-04-07 00:40 | PC.NURSE ---
patients runs 9 PVC's with heart rate of 119. Doctors are on the floor and made them aware. no orders have been made.
[2024-04-07] MEDS: hydrALAZINE HCL 25 MG TABLET 50 MG PO (05:26)
--- NOTE | 2024-04-07 07:00 | XR_ITS ---
Examination: AP chest single view Technique one AP portable upright chest single view Exam date and time: April 07, 2024 at 0514 hrs. Comparison April 06, 2024 Indications: Status post temporary dialysis catheter placement, difficulty breathing this week, CHF with significant right pleural effusion on chest film April 06, 2024 Findings: Interval right internal jugular temporary dialysis catheter tip SVC satisfactory position Mild CHF with moderate enlargement cardiac contour prominent vascular congestion Opacity right lung consistent with pneumonia with large right pleural effusion Moderate osteopenia Impression: Interval right internal jugular temporary dialysis catheter, tip SVC satisfactory position No pneumothorax Mild CHF Consider pneumonia right lung Large right pleural effusion
[2024-04-07] MEDS: SEVELAMER CARBONATE 800 MG TABLET PO ×3 (08:59→17:01)
[2024-04-07] MEDS: BUMETANIDE INJ 0.25 MG/ML VIAL 4 ML 2 MG IVP (08:59)
[2024-04-07] MEDS: cefTRIAXone/D5w 1gm IV premix 50 ML IV (09:00)
--- NOTE | 2024-04-07 09:18 | PD.RESPRO ---
Documentation for date of: 04/07/24 Subjective Subjective Interval history: Colton Sandoval is a 63-year-old male with a PMHx of HTN, HLD, insulin-dependent T2DM, HFpEF (EF 50-55% on 01/2024), and CKD stage IV presented on 04/04 for progressive dyspnea. Symptoms started three weeks ago with associated bilateral lower extremity edema, orthopnea, and paroxysmal nocturnal dyspnea. States that he sleeps with three pillows at night. Denies muscle pain, weakness, paresthesias, palpitations. Reports being compliant with his medications and follows-up with [facility]. Of note, patient admitted on 01/2024 for acute decompensated HF exacerbation with component of sepsis secondary to pneumonia and states that he does not follow-up with a cut pressman outpatient. In ED, BP 170/86, RR 31, on 4 L NC saturating 97%. Labs significant for hemoglobin 9.8 (BL 7.5), K 6.5, HCO3 18.2, BUN 54, Cr 2.7 (at BL), GFR 26 BNP 1100, troponin negative. CT C/A/P: Mild/moderate CHF, pneumonia on the right base, large right/moderate left effusions, cirrhosis, mild ascites, severe anasarca. EKG without peaked T waves, prolonged QRS complexes, or flattened P waves. Given calcium gluconate, albuterol and insulin + dextrose in ED, with repeat K decreasing to 6.2 (from 6.5). Also given 2 mg IV bumex. Admitted for management of AHRF secondary to decompensated CHF exacerbation. Nephrology consulted for hyperkalemia. 04/05: Seen and examined in telemetry. States that he is still short of breath but is not worse compared to yesterday. He is making good urine with 1 L urine output since being admitted yesterday, currently on 2 mg IV bumex BID. K downtrending from 6.5 -> 6.2 -> 5.8. Since ED, has received Kayexalate x1, and another round of albuterol/insulin + dextrose/calcium gluconate. 04/06: Seen and examined in telemetry. Today he does not have any complaints. Spoke to him regarding need for temporary dialysis and agrees to plan. Order placed for TDC placement and made NPO. Also placed orders for PPD, HIV and hepatitis panels and spoke to social worker psychiatric to inform of need for outpatient dialysis chair. K mildly increased from 5.6 to 5.7 while on IV bumex. Continues to have good urine output of 1.9 L in 24 hours. 04/07: Seen and examined in telemetry. S/p placement of temporary dialysis catheter on 04/06. Noted to have bleeding at IJ catheter site around 2300 and epinephrine-soaked gauze was placed with applied pressure with mild bleeding afterwards. Attempted to check hgb but patient refused labs at that time and also refused morning labs. Upon evaluation this morning, gauze was soaked in blood but not actively bleeding so was replaced with SurgiSeal and ordered desmopressin 20 mcg x1. Repeat CXR unremarkable, without signs of pneumothorax. Will plan for dialysis later today. Exam Vital Signs Temp Pulse Resp BP Pulse Ox O2 Del Method O2 Flow Rate 98.3 F 72 16 164/86 H 93 L Nasal Cannula 2 04/07/24 08:00 04/07/24 08:59 04/07/24 08:00 04/07/24 08:59 04/07/24 08:00 04/07/24 08:00 04/07/24 07:41 Narrative Exam General: AOx3, no mild distress, slightly diaphoretic, able to speak full sentences HEENT: NC/AT, mucous membranes moist, bilateral sclera anicteric Cardiovascular: regular rate and rhythm, S1/S2 present, no murmurs appreciated Pulmonary: diminished breath sounds bilaterally Abdominal: distended, firm, non-tender Musculoskeletal: 2+ bilateral pitting edema up to knees Skin: right IJ temporary catheter in place with SurgiSeal, healed excoriations in upper extremities/shoulders Objective Labs 04/08/24 09:37 04/08/24 09:37 Labs: Laboratory Results - last 24 hr 04/06/24 04/06/24 04/06/24 07:00 10:09 20:00 PT 11.5 INR 1.1 APTT 28.0 Sodium 141 Potassium 5.1 D Chloride 111 H Carbon Dioxide 20.9 Anion Gap 9 BUN 58 H Creatinine 2.8 H Estim Creat Clear Calc 33.8 L eGFR 25 L BUN/Creatinine Ratio 21 H Glucose 213 H D Calculated Osmolality 303 H Calcium 8.6 Iron 27 L TIBC 239 L Iron Saturation 11 L Unsat Iron Binding 212 L Ur Collection Type Urine Color Urine Clarity Urine pH Ur Specific Vincent Urine Protein Urine Glucose (UA) Urine Ketones Urine Blood Urine Nitrite Urine Bilirubin Urine Urobilinogen (Auto) Ur Leukocyte Esterase Urine RBC Urine WBC Ur Squamous Epith Cells Urine Bacteria Hyaline Casts Ur Random Creatinine 51 U Random Total Protein > 250 H Ur Random Sodium 94.2 Ur Random Potassium 23 Ur Random Chloride 95.0 Urine Opiates Screen Negative Urine Fentanyl Screen Negative Ur Barbiturates Screen Negative U Amphetamin/Meth Scrn Negative U Benzodiazepines Scrn Negative U Cocaine Metab Screen Negative U Marijuana (THC) Screen Negative Hepatitis A IgM Ab Non Reactive Hep Bs Antigen Non Reactive Hep B Core IgM Ab Non Reactive Hepatitis C Antibody Non Reactive HIV 1&2 Antibody Rapid Non-Reactive 04/06/24 20:06 PT INR APTT Sodium Potassium Chloride Carbon Dioxide Anion Gap BUN Creatinine Estim Creat Clear Calc eGFR BUN/Creatinine Ratio Glucose Calculated Osmolality Calcium Iron TIBC Iron Saturation Unsat Iron Binding Ur Collection Type Clean Catch Urine Color Lt-Yellow Urine Clarity Clear Urine pH 5.5 Ur Specific Vincent 1.012 Urine Protein 3+ A Urine Glucose (UA) Trace Urine Ketones Negative Urine Blood Trace Urine Nitrite Negative Urine Bilirubin Negative Urine Urobilinogen (Auto) Negative Ur Leukocyte Esterase Negative Urine RBC 14 H Urine WBC 1 Ur Squamous Epith Cells < 1 Urine Bacteria None Hyaline Casts 1 Ur Random Creatinine U Random Total Protein Ur Random Sodium Ur Random Potassium Ur Random Chloride Urine Opiates Screen Urine Fentanyl Screen Ur Barbiturates Screen U Amphetamin/Meth Scrn U Benzodiazepines Scrn U Cocaine Metab Screen U Marijuana (THC) Screen Hepatitis A IgM Ab Hep Bs Antigen Hep B Core IgM Ab Hepatitis C Antibody HIV 1&2 Antibody Rapid Quality Measures Quality Measures none Assessment & Plan Assessment Current Active Medications: Generic Name Dose Route Start Last Admin Trade Name Freq PRN Reason Stop Dose Admin Acetaminophen 650 mg 04/04/24 17:24 Acetaminophen 325 Mg Tablet PO 05/04/24 17:23 Q6H PRN Mild Pain 1-3 or Fever >100.4 Atorvastatin Calcium 20 mg 04/04/24 21:00 04/06/24 20:38 Atorvastatin Calcium 20 Mg Tablet PO 05/04/24 20:59 20 mg HS ANAMARIA Administration Bumetanide 2 mg 04/07/24 09:00 04/07/24 08:59 Bumetanide Inj 0.25 Mg/Ml Vial 4 Ml IVP 05/07/24 08:59 2 mg QDAY ANAMARIA Administration Dextrose 25 ml 04/06/24 08:40 Dextrose 50%-Water Inj 50 Ml Syringe IV 05/06/24 08:39 Q15MIN PRN BG 50-70 responsive npo pt Dextrose 50 ml 04/06/24 08:40 Dextrose 50%-Water Inj 50 Ml Syringe IV 05/06/24 08:39 Q15MIN PRN BG <50 OR BG <70 & pt unresponsive Glucagon 1 mg 04/06/24 08:40 Glucagon Inj 1 Mg Vial IM Q15MIN PRN BG <70, and no IV access Hydralazine HCl 10 mg 04/04/24 17:35 04/06/24 19:54 Hydralazine Inj 20 Mg/Ml Vial IV 05/04/24 17:34 10 mg Q4HR PRN Administration Hypertension Hydralazine HCl 50 mg 04/04/24 22:00 04/07/24 05:26 Hydralazine Hcl 25 Mg Tablet PO 05/04/24 21:59 50 mg TID ANAMARIA Administration Ceftriaxone Sodium/Dextrose 50 mls @ 100 mls/hr 04/04/24 17:30 04/07/24 09:00 Rocephin/D5w 1gm Iv Premix IV 04/11/24 17:29 100 mls/hr QDAY ANAMARIA Administration Insulin Human Lispro 0 unit 04/04/24 21:00 04/07/24 08:30 Insulin Lispro (Admelog) 1 Unit/0.01 Ml Unit SC 05/04/24 20:59 Not Given ACHS ANAMARIA Protocol Ondansetron HCl 4 mg 04/04/24 17:24 Ondansetron Inj 2 Mg/Ml Inj 2 Ml IV 05/04/24 17:23 Q6H PRN NAUSEA OR VOMITING Protocol Sennosides 1 tab 04/04/24 17:24 Senna Tablet PO 05/04/24 17:23 QDAY PRN constipation Protocol Sevelamer Carbonate 800 mg 04/06/24 12:00 04/07/24 08:59 Sevelamer Carbonate 800 Mg Tablet PO 05/06/24 11:59 800 mg TIDWM ANAMARIA Administration Sodium Chloride 3 ml 04/04/24 16:42 Sodium Chloride Rt Silvina 0.9% 3 Ml Nebu INH 05/04/24 16:41 PRN PRN SOLN Plan Colton Lori is a 63-year-old male with a PMHx of HTN, HLD, insulin-dependent T2DM, HFpEF (EF 50-55% on 01/2024), and CKD stage IV who is admitted for management of acute decompensated CHF exacerbation. Nephrology consulted for hyperkalemia. #Hyperkalemia Initially presents with potassium of 6.5 that has since down trended to 5.8 after receiving albuterol, insulin plus dextrose, and calcium gluconate. Has also received Kayexalate x 1 and currently on IV Bumex with good urine output. Given that patient did not have EKG changes associated with hyperkalemia (peaked T waves, prolonged QRS complex, flattened P waves) and does not endorse muscle weakness/paralysis, does not require emergent therapy and serum K can be lowered slowly with diuretics. Has history of uncontrolled diabetes (albeit improved) that likely caused CKD, and likely contributed to hyperkalemia. ? Continue IV bumex so long as patient continues to have good urine output ? May consider GI cation exchangers if K does not improve ? Can also consider upon discharge for maintenance therapy ? Low K diet #CKD stage IV #Diabetic nephropathy vs nephrotic syndrome-3+ protein on urinalysis. Protein creatinine ratio ordered #Cardiorenal syndrome #Normocytic anemia, likely secondary to CKD From previous admission, noted to have 24 urine protein of 2.5 g. Although this does not meet criteria for nephrotic syndrome, it is still overt proteinuria and is likely due to uncontrolled diabetes as stated above. Additionally, patient presents with acute decompensated CHF exacerbation with worsening EF from 60-65% to 50-55%, thus cardiorenal syndrome may also be contributing to renal insult. ? S/p placement of temporary catheter, 04/06 ? branch services manager informed regarding need for outpatient dialysis chair ? Follow-up PPD on 04/08, hepatitis panel negative ? Pending HIV panel ? Avoid nephrotoxic agents ? Renally dose medications ? Strict I/O #Acute decompensated CHF exacerbation #HFpEF (EF 50-55% on 01/2024) #Type 2 diabetes mellitus, insulin-dependent #Hypertension #Hyperlipidemia ? Continue management per primary team ----- Plan discussed with attending physician Dr. Etelvina Lee MD PGY-1 Internal Medicine Attending Provider Attestation/Addendum Patient seen and examined with resident physician Dr. Bowser. Note reviewed, agree with findings and recommendations. Patient with recurrent episodes of congestive heart failure secondary to diabetic nephropathy(cardiorenal syndrome). Diuretic dependent/resistant with significant anasarca, recurrent hyperkalemia. Had a long conversation with patient regarding the need for dialysis to prevent recurrent hospitalizations and to maintain euvolemic state. Patient agreed for dialysis if indicated. Will place dialysis catheter in a.m. and initiate sequential ultrafiltration tomorrow. PPD, hep panel ordered. Outpatient dialysis arrangements to be done. 04/07/2024 patient yesterday had a right IJ Vas-Cath. Had wheezing overnight. This morning with the surgery still bleeding seems to have stopped. Ordered 1 dose of desmopressin but discontinued due to high blood pressure. Added ARB for proteinuria Patient currently seen on dialysis. Tolerating dialysis without any problems. This is his first dialysis treatment. Hemodialysis for 2 hours, qb 200, 2K, ultrafiltration 2 L, Epogen 6000, no heparin ordered. Plan of care discussed with the dialysis nurse. Please see dialysis flowsheet for further details. Next dialysis scheduled for tomorrow. Patient needs PermCath prior to discharge. Once he is clinically stable and able to lay flat we will plan for PermCath. Hopefully Thursday.
[2024-04-07] MEDS: Lisinopril 20 MG TABLET PO (09:56)
[2024-04-07 10:05] LABS: Misc Send Out* See Sep Rpt
[2024-04-07 10:18] LABS: Basophils % (Auto) 0 % (0-2.5); Eosinophils # (Auto) 0.3 Thou/mm3 (0.0-0.5); Eosinophils % (Auto) 4 % (0-10); Hematocrit 28.8 % (41.0-53.0); Immature Granulocytes % (Auto) 0 % (0-0); Immature Granulocytes Auto 0.03 Thou/mm3 (0.00-0.00); Lymphocytes # (Auto) 1.3 Thou/mm3 (1.0-4.8); Lymphocytes % (Auto) 17 % (10-50); Mean Corpuscular HGB Conc 30.2 g/dl (31.0-37.0); Mean Corpuscular Hemoglobin 26.6 pg (25.0-35.0); Mean Corpuscular Volume 88 fL (80-100); Monocytes # (Auto) 0.9 Thou/mm3 (0.0-0.8); Monocytes % (Auto) 13 % (0-12); Neutrophils # (Auto) 4.9 Thou/mm3 (1.8-7.7); Neutrophils % (Auto) 66 % (37-80); Nucleated Red Blood Cell % 0 /100 WBC (0); Platelet Count 221 Thou/mm3 (140-440); RDW Standard Deviation 58.7 fL (35.1-43.9); Red Blood Count 3.27 Miln/mm3 (4.50-5.90); White Blood Count 7.5 Thou/mm3 (3.8-10.6)
[2024-04-07 10:25] LABS: INR 1.1 (0.9-1.3); Partial Thromboplastin Time 27.3 Seconds (22.0-36.0); Prothrombin Time 11.6 Seconds (9.0-12.2)
[2024-04-07 10:32] LABS: Alanine Aminotransferase 15 U/L (10-49); Albumin, Serum 3.3 gm/dL (3.4-4.8); Albumin/Globulin Ratio 1.1 (1.2-2.2); Alkaline Phosphatase 175 U/L (46-116); Anion Gap 7 (7-16); Aspartate Amino Transferase < 8 U/L (0-34); BUN/Creatinine Ratio 23 Ratio (12-20); Bilirubin,Total 0.3 mg/dL (0.3-1.2); Blood Urea Nitrogen 61 mg/dL (9-23); Calcium 8.2 mg/dL (8.3-10.6); Calcium (Corrected) 8.8 mg/dL (8.5-10.1); Carbon Dioxide 22.8 mMol/L (20.0-31.0); Chloride 111 mMol/L (98-107); Creatinine (Component) 2.7 mg/dL (0.6-1.3); Globulin 2.9 gm/dL (2.3-3.5); Glucose 133 mg/dL (74-106); Magnesium 2.5 mg/dL (1.6-2.6); Osmolality,Calculated 300 (275-295); Phosphorous 4.9 mg/dL (2.4-5.1); Sodium 141 mMol/L (136-145); Total Protein 6.2 gm/dL (5.7-8.2); eGFR 26 See Note
[2024-04-07 10:33] LABS: Vitamin D 25 Hydroxy Total 17.2 ng/mL (7.3-40.2)
[2024-04-07 11:03] LABS: Hemoglobin 8.7 g/dL (13.5-16.0)
[2024-04-07 11:22] LABS: Hepatitis B Core Antibody IgM Non Reactive (Non React); Hepatitis B Surface Ab NonReact(Not Immune) (Immune)
--- NOTE | 2024-04-07 14:54 | ESPR_ITS ---
Documentation for date of: 04/07/24 Subjective Subjective Interval history: Overnight, bleeding was reported from demporary dialysis catheter s/p placement on 04/06/2022. Stated pressure was applied overnight without resolution of bleeding. Additonally Epinephrine-soaked gauze was placed without success. Pateint examined at bedside. Bilateral vesicular breath sounds. Bleeding improved. Desmopressin 20 mcg IVP X1 ordered but not given as patient was going to be transported for scheduled dialysis. Bleeding improved after addition of surgiseal. Patient complained of pain at site. Pending dialysis chair PPD and Hepatitis specific panels (Hep B core Antibody, Surface antibody, Hep B core IgM and Hep B Core IgG). NO bowel movements reported. Total output 2430. Exam Vital Signs Temp Pulse Resp BP Pulse Ox O2 Del Method O2 Flow Rate 97.2 F 74 18 177/121 H 100 Nasal Cannula 3 04/07/24 14:11 04/07/24 14:45 04/07/24 14:11 04/07/24 14:45 04/07/24 14:11 04/07/24 12:00 04/07/24 14:11 Narrative Exam General Appearance: Alert & Oriented X3, well-nourished male who is lying in bed in mild distress given bleeding form tunnel cath. HEENT: Skull symmetrical and atraumatic. Conjunctivae pink and moist. Pupils equal, round, reactive to light and accommodation (PERRL). External ear without lesion or discharge. Straight, nares patient, mucosa pink, no discharge. No thyroid nodule appreciated. No cervical lymphadenopathy. Cardio: Normal Rate and Rhythm with S1 and S2 heart sounds. No murmurs or extra heart sounds auscultated. No bruits on carotid auscultation. Peripheral edema +2. Lungs: Symmetric with good expansion. Chest and back non-tender. Breath sounds vesicular without crackles, wheezing or rhonchi Abdomen: Non-tender, Non-distended, Normal Reactive Bowel Sounds, ANASARCA Neuro: Alert, cooperative, oriented to person, place, and time. Speech clear. CN grossly intact. Upper motor strength 5/5 and Lower motor strength 5/5. Sensation intact. Objective Labs 04/08/24 09:37 04/08/24 09:37 Labs: Laboratory Results - last 24 hr 04/06/24 04/06/24 04/06/24 09:50 20:00 20:06 WBC RBC Hgb Cancelled Hct Cancelled MCV MCH MCHC RDW Std Deviation Plt Count Neut % (Auto) Lymph % (Auto) [place] % (Auto) Eos % (Auto) Baso % (Auto) Neut # (Auto) Lymph # (Auto) [place] # (Auto) Eos # (Auto) Baso # (Auto) Immature Gran # (Auto) Absolute Nucleated RBC Immature Gran % Nucleated RBC % PT INR APTT Sodium Potassium Chloride Carbon Dioxide Anion Gap BUN Creatinine Estim Creat Clear Calc eGFR BUN/Creatinine Ratio Glucose Calculated Osmolality Calcium Corrected Calcium Phosphorus Magnesium Total Bilirubin AST ALT Alkaline Phosphatase Total Protein Albumin Globulin Albumin/Globulin Ratio 25-OH Vitamin D Total PTH Intact Ur Collection Type Clean Catch Urine Color Lt-Yellow Urine Clarity Clear Urine pH 5.5 Ur Specific [place] 1.012 Urine Protein 3+ A Urine Glucose (UA) Trace Urine Ketones Negative Urine Blood Trace Urine Nitrite Negative Urine Bilirubin Negative Urine Urobilinogen (Auto) Negative Ur Leukocyte Esterase Negative Urine RBC 14 H Urine WBC 1 Ur Squamous Epith Cells < 1 Urine Bacteria None Hyaline Casts 1 Ur Random Creatinine 51 U Random Total Protein > 250 H Ur Random Sodium 94.2 Ur Random Potassium 23 Ur Random Chloride 95.0 Urine Opiates Screen Negative Urine Fentanyl Screen Negative Ur Barbiturates Screen Negative U Amphetamin/Meth Scrn Negative U Benzodiazepines Scrn Negative U Cocaine Metab Screen Negative U Marijuana (THC) Screen Negative Hep Bs Antibody Hep B Core IgM Ab 04/07/24 09:50 WBC 7.5 RBC 3.27 L Hgb 8.7 L Hct 28.8 L MCV 88 MCH 26.6 MCHC 30.2 L RDW Std Deviation 58.7 H Plt Count 221 D Neut % (Auto) 66 Lymph % (Auto) 17 [place] % (Auto) 13 H Eos % (Auto) 4 Baso % (Auto) 0 Neut # (Auto) 4.9 Lymph # (Auto) 1.3 [place] # (Auto) 0.9 H Eos # (Auto) 0.3 Baso # (Auto) 0.0 Immature Gran # (Auto) 0.03 H Absolute Nucleated RBC 0.00 Immature Gran % 0 Nucleated RBC % 0 PT 11.6 INR 1.1 APTT 27.3 Sodium 141 Potassium 5.0 Chloride 111 H Carbon Dioxide 22.8 Anion Gap 7 BUN 61 H Creatinine 2.7 H Estim Creat Clear Calc 35.0 L eGFR 26 L BUN/Creatinine Ratio 23 H Glucose 133 H D Calculated Osmolality 300 H Calcium 8.2 L Corrected Calcium 8.8 Phosphorus 4.9 Magnesium 2.5 Total Bilirubin 0.3 AST < 8 ALT 15 Alkaline Phosphatase 175 H Total Protein 6.2 Albumin 3.3 L Globulin 2.9 Albumin/Globulin Ratio 1.1 L 25-OH Vitamin D Total 17.2 PTH Intact 41.0 Ur Collection Type Urine Color Urine Clarity Urine pH Ur Specific [place] Urine Protein Urine Glucose (UA) Urine Ketones Urine Blood Urine Nitrite Urine Bilirubin Urine Urobilinogen (Auto) Ur Leukocyte Esterase Urine RBC Urine WBC Ur Squamous Epith Cells Urine Bacteria Hyaline Casts Ur Random Creatinine U Random Total Protein Ur Random Sodium Ur Random Potassium Ur Random Chloride Urine Opiates Screen Urine Fentanyl Screen Ur Barbiturates Screen U Amphetamin/Meth Scrn U Benzodiazepines Scrn U Cocaine Metab Screen U Marijuana (THC) Screen Hep Bs Antibody NonReact(Not Immune) L Hep B Core IgM Ab Non Reactive Quality Measures Quality Measures none Assessment & Plan Assessment Current Active Medications: Generic Name Dose Route Start Last Admin Trade Name Freq PRN Reason Stop Dose Admin Acetaminophen 650 mg 04/04/24 17:24 Acetaminophen 325 Mg Tablet PO 05/04/24 17:23 Q6H PRN Mild Pain 1-3 or Fever >100.4 Atorvastatin Calcium 20 mg 04/04/24 21:00 04/06/24 20:38 Atorvastatin Calcium 20 Mg Tablet PO 05/04/24 20:59 20 mg HS ANAMARIA Administration Bumetanide 2 mg 04/07/24 09:00 04/07/24 08:59 Bumetanide Inj 0.25 Mg/Ml Vial 4 Ml IVP 05/07/24 08:59 2 mg QDAY ANAMARIA Administration Dextrose 25 ml 04/06/24 08:40 Dextrose 50%-Water Inj 50 Ml Syringe IV 05/06/24 08:39 Q15MIN PRN BG 50-70 responsive npo pt Dextrose 50 ml 04/06/24 08:40 Dextrose 50%-Water Inj 50 Ml Syringe IV 05/06/24 08:39 Q15MIN PRN BG <50 OR BG <70 & pt unresponsive Glucagon 1 mg 04/06/24 08:40 Glucagon Inj 1 Mg Vial IM Q15MIN PRN BG <70, and no IV access Heparin Sodium (Porcine) 3,700 unit 04/07/24 14:23 Heparin Sod Inj 1000 Unit/Ml Vial 10 Ml INDWELLCAT 04/21/24 14:22 PRN PRN DIALYSIS Hydralazine HCl 10 mg 04/04/24 17:35 04/06/24 19:54 Hydralazine Inj 20 Mg/Ml Vial IV 05/04/24 17:34 10 mg Q4HR PRN Administration Hypertension Hydralazine HCl 50 mg 04/07/24 13:30 Hydralazine Hcl 25 Mg Tablet PO 05/04/24 21:59 TID ANAMARIA Ceftriaxone Sodium/Dextrose 50 mls @ 100 mls/hr 04/04/24 17:30 04/07/24 09:00 Rocephin/D5w 1gm Iv Premix IV 04/11/24 17:29 100 mls/hr QDAY ANAMARIA Administration Albumin Human 25 gm in 100 mls @ 100 mls/min 04/07/24 13:30 Albuminar-25 Ivpb IV PRN PRN DIALYSIS Insulin Human Lispro 0 unit 04/04/24 21:00 04/07/24 12:06 Insulin Lispro (Admelog) 1 Unit/0.01 Ml Unit SC 05/04/24 20:59 Not Given ACHS ANAMARIA Protocol Lisinopril 20 mg 04/07/24 10:00 04/07/24 09:56 Lisinopril 20 Mg Tablet PO 05/07/24 09:59 20 mg QDAY ANAMARIA Administration Ondansetron HCl 4 mg 04/04/24 17:24 Ondansetron Inj 2 Mg/Ml Inj 2 Ml IV 05/04/24 17:23 Q6H PRN NAUSEA OR VOMITING Protocol Polyethylene Glycol 17 gm 04/07/24 10:30 04/07/24 10:34 Polyethylene Glycol 17 Gm Packet PO 05/07/24 10:29 Not Given QDAY ANAMARIA Sennosides 1 tab 04/04/24 17:24 Senna Tablet PO 05/04/24 17:23 QDAY PRN constipation Protocol Sevelamer Carbonate 800 mg 04/06/24 12:00 04/07/24 11:58 Sevelamer Carbonate 800 Mg Tablet PO 05/06/24 11:59 800 mg TIDWM ANAMARIA Administration Sodium Chloride 3 ml 04/04/24 16:42 Sodium Chloride Rt Silvina 0.9% 3 Ml Nebu INH 05/04/24 16:41 PRN PRN SOLN Plan Patient is a 63-year-old male with a past medical history of hypertension, hyperlipidemia, diabetes mellitus type 2 insulin-dependent on trulicity 1.5 mg subq once a week, chronic kidney disease anasarca, HFpEF 55 to 50% (04/04/2024) admitted for acute hypoxic respiratory failure, secondary to acute on chronic CHF exacerbation w/ ANASARCA. #Acute Blood Loss secondary to temporary tunnel catheter Overnight, patient experienced acute blood loss secondary to placement of temporary tunnel catheter likely secondary suture and BUN elevated likely indicating uremia given CKD secondary to diabetic nephropathy-->now ESRD. Bleeding improved this morning. Plan -Epi gauze given X 1 -Surgiseal placed AM -Desmopressin ordered, not given, as patient was taken to dialysis and BP was elevated. -monitor Hgb, transfuse if less <7 #Hyperkalemia, improved Hyperkalemia likely secondary to worsening CKD. Less likely secondary to medication vs poor diet as outpatient. K showed improved value overnight with K of 5.0. Planned dialysis for today. 04/07/2024- K 5.0 Plan -Consider added Veltassa as scheduled medication or Lokelma if hyperkalemia continues after dialysis -Consider giving hyperkalemia cocktail if K is elevated -Continue to monitor K. #New Diagnosis ESRD HD #s/p tunnel catheter on 04/06/2024 #CKD stage IV secondary to Diabetic Nephropathy #Non-anion gap, Metabolic acidosis, improved Possible JOSE MARIA given acute CHF exacerbation with best Cr for patient recorded at 1.9 which wiley an increase >0.3. BUN/Cr level at 20 likely points to prerenal etioilogy. Worsening CKD can not be ruled out likely secondary to diabetic nephropathy vs obstructive less likely as patient denied decrease urine output. .Non-anion gap Metabolic acidosis likely secondary to RTA 4 (distal) given positive urine gap and hyperkalemia. Renal Parenchymal scar formation (01/29/2024) Plan for dialysis. Plan -Dialysis planned for 04/07/2024 -PPD and Hepatitis Panel, including send out -Avoid nephrotoxins -Renally dose medication -Monitor Bicarb -electrolytes and protein urine -consult Dr. Main, appreciate recommendations. #Hypertensive Urgency #Hypertension Patient's home medication of Hydralazine 100 mg TID. Start at a lower dose of hydralazine 50 mg TID. This morning patient experience hypertensive urgency, likely secondary to acute bleeding for site of temporary tunnel catheter. Added Lisinopril and Hydralazine. Plan -Hydralazine 50 mg TID, increased to Hydralazine 100 mg TID (home dose) -Lisinopril 20 mg Qday -Hydralazine 10 mg IV PRN, for systolic BP >180 or diastolic BP >110. #Acute hypoxic respiratory failure,improving #CHF exacerbation #Congestive Heart Failure HFpEF 55% to 50% (03/2024) #Pleural Effusion #ANASARCA Etiology: likely secondary to cardiomyopathy, worsened by cardio-renal syndrome with worsening anasarca. Positive for orthopnea , dyspnea, and PNO. Requiring oxygen on admission secondary to increased work of breathing. Please consider Bipap if needed or ABG for worsening work of breathing. NO thoracentesis planned. DDx: Less likley secondary to [place] given no ST elevation on EKG and no troponin vs PE [place] 1.5 04/07 Diagnostics: TSH within limits CT: Mild to Moderate CHF, Prominent Pneumonia right base, Large right moderate left pleural effusion, Cirrhosis, mild ascites, cholelithiasis, Severe Anasarca, Promnent scrotal swelling and hydroceles Echo (): HFpEF 50-55% 04/07/2024 Intake 1690/Output 2430/Blance -740 Wt 111.1 Kg (-0.7 change) NYHA Class: IV Plan: -Bumetanide 2 mg IVP Qday -Holding Carvedilol, consider restarting -Thoracentesis US guided IR- None planned for now -K>4 and Mg >2 -SpO <90%, support PRN -Consider high flow or bipap if shortness of breath worsens or ABG -Daily Weights, Strict Ins and Outs, Fluid Striction (1500), Sodium Restriction 2 grams per day #Diabetes Mellitus Type 2 Insulin dependent Previous A1c 6.2% on 01/2024 with a glucose on admission of 154. A1c 6.4% (04/05/2024). Home medication of Trulicity (dulaglutide) subq weekly, consider holding with renal impairment and Glargine. plan: -Sliding scale -Order Free Style Lurdes 3 & [place] upon discharge -Monitor glucose in the AM #Hyperlipedimia Continue home medication of Atorvastatin 20 mg HS oral. Diagnostics: ASCVD 15.3% of cardiovascular event in the next 10 yrs. Moderate to high intensity statin recommended as risk >7.5% Plan -Atorvastatin 20 mg HS (moderate) #Normocytic Anemia, stable Patient has an extensive history of normocytic anemia likely secondary to chronic inflammation given history of CKD and diabetes mellitus vs Microcytic Anemia secondary to chronic inflammation given low iron level, low TIBC, and high ferritin on iron panel. Likely combination of both. Diagnostics: Hgb 9.1 and Hct 30.2 MCV 88 on admission Ferritin elevated Iron level low and low TIBIC Plan: -no acute intervention planned. -Treat underlying cause, consider adding iron supplementation -consider EPO by Nephrololgy #Mild Cirrhosis with Ascites Patient stated he has a history of remote alcohol use but denied excessive use. Negative Hepatisis. Negative HIV (01/28/2024). Alcohol <3.0 Consider MASH as BMI 35.0 with history of diabetes. Plan -Consider paracentesis -Continue to monitor Health Maintenance: Disp: Pt is currently admitted to floors for further management of CHF exacerbation, awaiting dialysis and Hepatitis FEN: low carb consistent, Fluid restricted 1500, and 2 gm per day DVT: holding heparin s/p tunnel catheter Code: Full code - The patient's plan was discussed with attending Dr. Aponte and senior residents Dr. Eleanor Cantu MD PGY1 Internal Medicine Senior Resident Attestation: I discussed with and supervised the mechanical engineering intern physician involved in the care of this patient. I personally saw and examined the patient and discussed the assessment and plan with the entire medicine team, including my attending. I agree with the assessment and plan as documented above. - Patient's care was discussed with my attending physician. Henri Webster MD Internal Medicine PGY-3 Attending Provider Attestation/Addendum I have examined the patient, reviewed labs and imaging findings, discussed the case with the resident(s), and reviewed entered orders. I agree with the plan of care as outlined in this note, with these additional summaries/recommendations: Patient seen at bedside. Overnight patient developed superficial bleeding around dialysis catheter insertion site. Gauze is noted to be bloodsoaked this morning although does not appear to be actively bleeding at this time. Nephrology following and patient given desmopressin and Surgicel applied. Patient may need new dialysis catheter placed. Potassium improved to 5.0 today although we will monitor closely as it has been persistently elevated. Patient has history of HFpEF and pleural effusions which is currently being managed with dialysis plus Bumex. Continue insulin sliding scale for diabetes mellitus type 2. Blood pressure noted to be elevated today and we will adjust antihypertensive regimen as needed. Patient radiographically found to have cirrhosis although no evidence of synthetic liver dysfunction at this time. Outpatient follow-up. Platelets improved back to normal today and we will continue to monitor. Repeat hematology and chemistry panel in AM. Dr. Aponte
[2024-04-07] MEDS: HEPARIN SOD INJ 1000 UNIT/ML VIAL 10 ML 3700 UNIT INDWELLCAT (16:45)
[2024-04-07] MEDS: hydrALAZINE INJ 20 MG/ML VIAL 10 MG IV (17:01)
[2024-04-07] MEDS: ATORVASTATIN CALCIUM 20 MG TABLET PO (20:37)
[2024-04-07] MEDS: INSULIN LISPRO (AdmeLOG) 1 UNIT/0.01 ML UNIT SC (20:44)
[2024-04-08] VITALS (28 sets, daily range): BP systolic 146–193; BP diastolic 72–104; PULSE 68–80; RESP 11–34; TEMP 36.3–36.7; O2SAT 95–100; BMI 34.2
[2024-04-08] MEDS: hydrALAZINE HCL 25 MG TABLET 100 MG PO ×3 (05:17→21:01)
[2024-04-08 09:54] LABS: Basophils % (Auto) 0 % (0-2.5); Eosinophils # (Auto) 0.3 Thou/mm3 (0.0-0.5); Eosinophils % (Auto) 5 % (0-10); Hematocrit 27.7 % (41.0-53.0); Immature Granulocytes % (Auto) 0 % (0-0); Immature Granulocytes Auto 0.02 Thou/mm3 (0.00-0.00); Lymphocytes # (Auto) 1.2 Thou/mm3 (1.0-4.8); Lymphocytes % (Auto) 21 % (10-50); Mean Corpuscular HGB Conc 30.3 g/dl (31.0-37.0); Mean Corpuscular Hemoglobin 26.4 pg (25.0-35.0); Mean Corpuscular Volume 87 fL (80-100); Monocytes # (Auto) 0.8 Thou/mm3 (0.0-0.8); Monocytes % (Auto) 13 % (0-12); Neutrophils # (Auto) 3.5 Thou/mm3 (1.8-7.7); Neutrophils % (Auto) 60 % (37-80); Nucleated Red Blood Cell % 0 /100 WBC (0); Platelet Count 199 Thou/mm3 (140-440); RDW Standard Deviation 57.7 fL (35.1-43.9); Red Blood Count 3.18 Miln/mm3 (4.50-5.90); White Blood Count 5.9 Thou/mm3 (3.8-10.6)
[2024-04-08 10:01] LABS: Hemoglobin 8.4 g/dL (13.5-16.0)
[2024-04-08 10:52] LABS: Alanine Aminotransferase 14 U/L (10-49); Albumin, Serum 3.3 gm/dL (3.4-4.8); Albumin/Globulin Ratio 1.1 (1.2-2.2); Alkaline Phosphatase 165 U/L (46-116); Anion Gap 8 (7-16); Aspartate Amino Transferase < 10 U/L (0-34); BUN/Creatinine Ratio 23 Ratio (12-20); Bilirubin,Total 0.3 mg/dL (0.3-1.2); Blood Urea Nitrogen 61 mg/dL (9-23); Calcium 8.2 mg/dL (8.3-10.6); Calcium (Corrected) 8.8 mg/dL (8.5-10.1); Carbon Dioxide 22.1 mMol/L (20.0-31.0); Chloride 112 mMol/L (98-107); Creatinine (Component) 2.6 mg/dL (0.6-1.3); Estimated Creatinine Clearance 35.9 mL/min (>60); Globulin 2.9 gm/dL (2.3-3.5); Glucose 124 mg/dL (74-106); Magnesium 2.5 mg/dL (1.6-2.6); Osmolality,Calculated 301 (275-295); Phosphorous 4.6 mg/dL (2.4-5.1); Sodium 142 mMol/L (136-145); Total Protein 6.2 gm/dL (5.7-8.2); eGFR 27 See Note
[2024-04-08] MEDS: HEPARIN SOD INJ 1000 UNIT/ML VIAL 10 ML 3700 UNIT INDWELLCAT (11:31)
--- NOTE | 2024-04-08 11:43 | PD.RESPRO ---
Documentation for date of: 04/08/24 Subjective Subjective Interval history: Colton Sandoval is a 63-year-old male with a PMHx of HTN, HLD, insulin-dependent T2DM, HFpEF (EF 50-55% on 01/2024), and CKD stage IV presented on 04/04 for progressive dyspnea. Symptoms started three weeks ago with associated bilateral lower extremity edema, orthopnea, and paroxysmal nocturnal dyspnea. States that he sleeps with three pillows at night. Denies muscle pain, weakness, paresthesias, palpitations. Reports being compliant with his medications and follows-up with [facility]. Of note, patient admitted on 01/2024 for acute decompensated HF exacerbation with component of sepsis secondary to pneumonia and states that he does not follow-up with a payable manager outpatient. In ED, BP 170/86, RR 31, on 4 L NC saturating 97%. Labs significant for hemoglobin 9.8 (BL 7.5), K 6.5, HCO3 18.2, BUN 54, Cr 2.7 (at BL), GFR 26 BNP 1100, troponin negative. CT C/A/P: Mild/moderate CHF, pneumonia on the right base, large right/moderate left effusions, cirrhosis, mild ascites, severe anasarca. EKG without peaked T waves, prolonged QRS complexes, or flattened P waves. Given calcium gluconate, albuterol and insulin + dextrose in ED, with repeat K decreasing to 6.2 (from 6.5). Also given 2 mg IV bumex. Admitted for management of AHRF secondary to decompensated CHF exacerbation. Nephrology consulted for hyperkalemia. 04/05: Seen and examined in telemetry. States that he is still short of breath but is not worse compared to yesterday. He is making good urine with 1 L urine output since being admitted yesterday, currently on 2 mg IV bumex BID. K downtrending from 6.5 -> 6.2 -> 5.8. Since ED, has received Kayexalate x1, and another round of albuterol/insulin + dextrose/calcium gluconate. 04/06: Seen and examined in telemetry. Today he does not have any complaints. Spoke to him regarding need for temporary dialysis and agrees to plan. Order placed for TDC placement and made NPO. Also placed orders for PPD, HIV and hepatitis panels and spoke to social human services assistants to inform of need for outpatient dialysis chair. K mildly increased from 5.6 to 5.7 while on IV bumex. Continues to have good urine output of 1.9 L in 24 hours. 04/07: Seen and examined in telemetry. S/p placement of temporary dialysis catheter on 04/06. Noted to have bleeding at IJ catheter site around 2300 and epinephrine-soaked gauze was placed with applied pressure with mild bleeding afterwards. Attempted to check hgb but patient refused labs at that time and also refused morning labs. Upon evaluation this morning, gauze was soaked in blood but not actively bleeding so was replaced with SurgiSeal and ordered desmopressin 20 mcg x1. Repeat CXR unremarkable, without signs of pneumothorax. Will plan for dialysis later today. 04/08: Seen and examined while undergoing dialysis, tolerating well. Underwent first session yesterday and tolerated well. IJ catheter site examined with minimal bleeding noted. Hemoglobin stable at 8.4. Sodium and potassium within normal limits, BUN stable at 61, creatinine stable at 2.6 prior to dialysis. Exam Vital Signs Temp Pulse Resp BP Pulse Ox O2 Del Method O2 Flow Rate 97.8 F 71 18 173/99 H 97 Nasal Cannula 2 04/08/24 11:36 04/08/24 11:36 04/08/24 11:36 04/08/24 11:36 04/08/24 11:36 04/08/24 08:00 04/08/24 11:36 Narrative Exam General: AOx3, no mild distress, slightly diaphoretic, able to speak full sentences HEENT: NC/AT, mucous membranes moist, bilateral sclera anicteric Cardiovascular: regular rate and rhythm, S1/S2 present, no murmurs appreciated Pulmonary: bibasilar crackles Abdominal: distended, firm, non-tender Musculoskeletal: 2+ bilateral pitting edema up to knees Skin: right IJ temporary catheter in place with SurgiSeal, healed excoriations in upper extremities/shoulders Objective Labs 04/08/24 09:37 04/08/24 09:37 Labs: Laboratory Results - last 24 hr 04/06/24 04/08/24 09:50 09:37 WBC 5.9 RBC 3.18 L Hgb Cancelled 8.4 L Hct Cancelled 27.7 L MCV 87 MCH 26.4 MCHC 30.3 L RDW Std Deviation 57.7 H Plt Count 199 Neut % (Auto) 60 Lymph % (Auto) 21 [place] % (Auto) 13 H Eos % (Auto) 5 Baso % (Auto) 0 Neut # (Auto) 3.5 Lymph # (Auto) 1.2 [place] # (Auto) 0.8 Eos # (Auto) 0.3 Baso # (Auto) 0.0 Immature Gran # (Auto) 0.02 H Absolute Nucleated RBC 0.00 Immature Gran % 0 Nucleated RBC % 0 Sodium 142 Potassium 5.0 Chloride 112 H Carbon Dioxide 22.1 Anion Gap 8 BUN 61 H Creatinine 2.6 H Estim Creat Clear Calc 35.9 L eGFR 27 L BUN/Creatinine Ratio 23 H Glucose 124 H Calculated Osmolality 301 H Calcium 8.2 L Corrected Calcium 8.8 Phosphorus 4.6 Magnesium 2.5 Total Bilirubin 0.3 AST < 10 ALT 14 Alkaline Phosphatase 165 H Total Protein 6.2 Albumin 3.3 L Globulin 2.9 Albumin/Globulin Ratio 1.1 L Quality Measures Quality Measures none Assessment & Plan Assessment Current Active Medications: Generic Name Dose Route Start Last Admin Trade Name Freq PRN Reason Stop Dose Admin Acetaminophen 650 mg 04/04/24 17:24 Acetaminophen 325 Mg Tablet PO 05/04/24 17:23 Q6H PRN Mild Pain 1-3 or Fever >100.4 Atorvastatin Calcium 20 mg 04/04/24 21:00 04/07/24 20:37 Atorvastatin Calcium 20 Mg Tablet PO 05/04/24 20:59 20 mg HS ANAMARIA Administration Bumetanide 2 mg 04/07/24 09:00 04/08/24 10:11 Bumetanide Inj 0.25 Mg/Ml Vial 4 Ml IVP 05/07/24 08:59 Not Given QDAY ANAMARIA Dextrose 25 ml 04/06/24 08:40 Dextrose 50%-Water Inj 50 Ml Syringe IV 05/06/24 08:39 Q15MIN PRN BG 50-70 responsive npo pt Dextrose 50 ml 04/06/24 08:40 Dextrose 50%-Water Inj 50 Ml Syringe IV 05/06/24 08:39 Q15MIN PRN BG <50 OR BG <70 & pt unresponsive Glucagon 1 mg 04/06/24 08:40 Glucagon Inj 1 Mg Vial IM Q15MIN PRN BG <70, and no IV access Heparin Sodium (Porcine) 3,700 unit 04/07/24 14:23 04/08/24 11:31 Heparin Sod Inj 1000 Unit/Ml Vial 10 Ml INDWELLCAT 04/21/24 14:22 3,700 unit PRN PRN Administration DIALYSIS Hydralazine HCl 10 mg 04/04/24 17:35 04/07/24 17:01 Hydralazine Inj 20 Mg/Ml Vial IV 05/04/24 17:34 10 mg Q4HR PRN Administration Hypertension Hydralazine HCl 100 mg 04/08/24 06:00 04/08/24 05:17 Hydralazine Hcl 25 Mg Tablet PO 05/08/24 05:59 100 mg TID ANAMARIA Administration Ceftriaxone Sodium/Dextrose 50 mls @ 100 mls/hr 04/04/24 17:30 04/08/24 10:11 Rocephin/D5w 1gm Iv Premix IV 04/11/24 17:29 Not Given QDAY ANAMARIA Albumin Human 25 gm in 100 mls @ 100 mls/min 04/07/24 13:30 Albuminar-25 Ivpb IV PRN PRN DIALYSIS Insulin Human Lispro 0 unit 04/04/24 21:00 04/08/24 07:53 Insulin Lispro (Admelog) 1 Unit/0.01 Ml Unit SC 05/04/24 20:59 Not Given ACHS [facility] Protocol Lisinopril 20 mg 04/07/24 10:00 04/08/24 10:11 Lisinopril 20 Mg Tablet PO 05/07/24 09:59 Not Given QDAY [facility] Ondansetron HCl 4 mg 04/04/24 17:24 Ondansetron Inj 2 Mg/Ml Inj 2 Ml IV 05/04/24 17:23 Q6H PRN NAUSEA OR VOMITING Protocol Polyethylene Glycol 17 gm 04/07/24 10:30 04/08/24 10:12 Polyethylene Glycol 17 Gm Packet PO 05/07/24 10:29 Not Given QDAY [facility] Sennosides 1 tab 04/08/24 10:30 Senna Tablet PO 05/08/24 10:29 QDAY [facility] Protocol Sevelamer Carbonate 800 mg 04/06/24 12:00 04/08/24 10:11 Sevelamer Carbonate 800 Mg Tablet PO 05/06/24 11:59 Not Given TIDWM ANAMARIA Sodium Chloride 3 ml 04/04/24 16:42 Sodium Chloride Rt Silvina 0.9% 3 Ml Nebu INH 05/04/24 16:41 PRN PRN SOLN Plan Colton Sandoval is a 63-year-old male with a PMHx of HTN, HLD, insulin-dependent T2DM, HFpEF (EF 50-55% on 01/2024), and CKD stage IV who is admitted for management of acute decompensated CHF exacerbation. Nephrology consulted for hyperkalemia. #Hyperkalemia Initially presents with potassium of 6.5 that has since down trended to 5.8 after receiving albuterol, insulin plus dextrose, and calcium gluconate. Has also received Kayexalate x 1 and currently on IV Bumex with good urine output. Given that patient did not have EKG changes associated with hyperkalemia (peaked T waves, prolonged QRS complex, flattened P waves) and does not endorse muscle weakness/paralysis, does not require emergent therapy and serum K can be lowered slowly with diuretics. Has history of uncontrolled diabetes (albeit improved) that likely caused CKD, and likely contributed to hyperkalemia. ? Continue IV bumex ? May consider GI cation exchangers if K does not improve ? Can also consider upon discharge for maintenance therapy ? Low K diet #CKD stage IV #Diabetic nephropathy vs nephrotic syndrome - 3+ protein on urinalysis, protein-creatinine ratio ordered #Cardiorenal syndrome #Normocytic anemia, likely secondary to CKD From previous admission, noted to have 24 urine protein of 2.5 g. Although this does not meet criteria for nephrotic syndrome, it is still overt proteinuria and is likely due to uncontrolled diabetes as stated above. Additionally, patient presents with acute decompensated CHF exacerbation with worsening EF from 60-65% to 50-55%, thus cardiorenal syndrome may also be contributing to renal insult. ? S/p placement of temporary catheter, 04/06 ? student services dean informed regarding need for outpatient dialysis chair ? HBsAg non-reactive, HBcAb pending ? HIV nonreactive ? Follow-up PPD on 04/08 ? Avoid nephrotoxic agents ? Renally dose medications ? Strict I/O #Acute decompensated CHF exacerbation #HFpEF (EF 50-55% on 01/2024) #Type 2 diabetes mellitus, insulin-dependent #Hypertension #Hyperlipidemia ? Continue management per primary team ----- Plan discussed with attending physician Dr. Etelvina Lee MD PGY-1 Internal Medicine Attending Provider Attestation/Addendum Patient seen and examined with resident physician Dr. Bowser. Note reviewed, agree with findings and recommendations. Patient with recurrent episodes of congestive heart failure secondary to diabetic nephropathy(cardiorenal syndrome). Diuretic dependent/resistant with significant anasarca, recurrent hyperkalemia. Had a long conversation with patient regarding the need for dialysis to prevent recurrent hospitalizations and to maintain euvolemic state. Patient agreed for dialysis if indicated. Will place dialysis catheter in a.m. and initiate sequential ultrafiltration tomorrow. PPD, hep panel ordered. Outpatient dialysis arrangements to be done. 04/07/2024 patient yesterday had a right IJ Vas-Cath. Had wheezing overnight. This morning with the surgery still bleeding seems to have stopped. Ordered 1 dose of desmopressin but discontinued due to high blood pressure. Added ARB for proteinuria 04/08/2024 Patient currently seen on second dialysis. Tolerating dialysis without any problems. This is his first dialysis treatment. Hemodialysis for 3 hours, qb 200, 2K, ultrafiltration 2 L, Epogen 6000, no heparin ordered. Plan of care discussed with the dialysis nurse. Please see dialysis flowsheet for further details. Continue with IV Bumex Next dialysis scheduled for tomorrow. Patient needs PermCath prior to discharge. Once he is clinically stable and able to lay flat we will plan for PermCath. Hopefully Thursday.
[2024-04-08] MEDS: ferumoxytoL (ESRD) 510 MG in SODIUM CHLORIDE 0.9% 100 ML 234 MG IV (11:57)
[2024-04-08] MEDS: SENNA TABLET 1 TAB PO (12:07)
[2024-04-08] MEDS: SEVELAMER CARBONATE 800 MG TABLET PO ×2 (12:07→16:59)
[2024-04-08] MEDS: hydrALAZINE INJ 20 MG/ML VIAL 10 MG IV ×2 (12:12→19:28)
--- NOTE | 2024-04-08 12:57 | ESPR_ITS ---
Documentation for date of: 04/08/24 Subjective Subjective Interval history: Events reported for patient. Patient continues to have good urine output with 2430/total input 1690 overall net -740. Patient's weight decreased from 111.1 kg to 108.4 kg. Currently to continue Bumex at 2 mg IV push daily. Patient completed first course of dialysis with a total net removal 2.5. Will reevaluate patient's work of breathing tomorrow morning and pleural effusion. Pending labs for hepatitis send out Exam Vital Signs Temp Pulse Resp BP Pulse Ox O2 Del Method O2 Flow Rate 97.8 F 74 18 187/104 H 97 Nasal Cannula 2 04/08/24 11:36 04/08/24 12:12 04/08/24 11:36 04/08/24 12:12 04/08/24 11:36 04/08/24 08:00 04/08/24 11:36 Narrative Exam General Appearance: Alert & Oriented X3, well-nourished female who is lying in bed in no acute distress HEENT: Skull symmetrical and atraumatic. Conjunctivae pink and moist. Pupils equal, round, reactive to light and accommodation (PERRL). External ear without lesion or discharge. Straight, nares patient, mucosa pink, no discharge. No thyroid nodule appreciated. No cervical lymphadenopathy. Cardio: Normal Rate and Rhythm with S1 and S2 heart sounds. No murmurs or extra heart sounds auscultated. No bruits on carotid auscultation. ANASARCA and peripheral edema 2+ Lungs: Symmetric with good expansion. Chest and back non-tender. Vesicular breath sounds with crackles. Abdomen: Non-tender, Non-distended, Normal Reactive Bowel Sounds Neuro: Alert, cooperative, oriented to person, place, and time. Speech clear. CN grossly intact. Upper motor strength 5/5 and Lower motor strength 5/5. Sensation intact. Objective Labs 04/08/24 09:37 04/08/24 09:37 Labs: Laboratory Results - last 24 hr 04/08/24 09:37 WBC 5.9 RBC 3.18 L Hgb 8.4 L Hct 27.7 L MCV 87 MCH 26.4 MCHC 30.3 L RDW Std Deviation 57.7 H Plt Count 199 Neut % (Auto) 60 Lymph % (Auto) 21 [place] % (Auto) 13 H Eos % (Auto) 5 Baso % (Auto) 0 Neut # (Auto) 3.5 Lymph # (Auto) 1.2 [place] # (Auto) 0.8 Eos # (Auto) 0.3 Baso # (Auto) 0.0 Immature Gran # (Auto) 0.02 H Absolute Nucleated RBC 0.00 Immature Gran % 0 Nucleated RBC % 0 Sodium 142 Potassium 5.0 Chloride 112 H Carbon Dioxide 22.1 Anion Gap 8 BUN 61 H Creatinine 2.6 H Estim Creat Clear Calc 35.9 L eGFR 27 L BUN/Creatinine Ratio 23 H Glucose 124 H Calculated Osmolality 301 H Calcium 8.2 L Corrected Calcium 8.8 Phosphorus 4.6 Magnesium 2.5 Total Bilirubin 0.3 AST < 10 ALT 14 Alkaline Phosphatase 165 H Total Protein 6.2 Albumin 3.3 L Globulin 2.9 Albumin/Globulin Ratio 1.1 L Quality Measures Quality Measures none Assessment & Plan Assessment Current Active Medications: Generic Name Dose Route Start Last Admin Trade Name Freq PRN Reason Stop Dose Admin Acetaminophen 650 mg 04/04/24 17:24 Acetaminophen 325 Mg Tablet PO 05/04/24 17:23 Q6H PRN Mild Pain 1-3 or Fever >100.4 Atorvastatin Calcium 20 mg 04/04/24 21:00 04/07/24 20:37 Atorvastatin Calcium 20 Mg Tablet PO 05/04/24 20:59 20 mg HS ANAMARIA Administration Bumetanide 2 mg 04/07/24 09:00 04/08/24 10:11 Bumetanide Inj 0.25 Mg/Ml Vial 4 Ml IVP 05/07/24 08:59 Not Given QDAY ANAMARIA Dextrose 25 ml 04/06/24 08:40 Dextrose 50%-Water Inj 50 Ml Syringe IV 05/06/24 08:39 Q15MIN PRN BG 50-70 responsive npo pt Dextrose 50 ml 04/06/24 08:40 Dextrose 50%-Water Inj 50 Ml Syringe IV 05/06/24 08:39 Q15MIN PRN BG <50 OR BG <70 & pt unresponsive Glucagon 1 mg 04/06/24 08:40 Glucagon Inj 1 Mg Vial IM Q15MIN PRN BG <70, and no IV access Heparin Sodium (Porcine) 3,700 unit 04/07/24 14:23 04/08/24 11:31 Heparin Sod Inj 1000 Unit/Ml Vial 10 Ml INDWELLCAT 04/21/24 14:22 3,700 unit PRN PRN Administration DIALYSIS Hydralazine HCl 10 mg 04/04/24 17:35 04/08/24 12:12 Hydralazine Inj 20 Mg/Ml Vial IV 05/04/24 17:34 10 mg Q4HR PRN Administration Hypertension Hydralazine HCl 100 mg 04/08/24 06:00 04/08/24 05:17 Hydralazine Hcl 25 Mg Tablet PO 05/08/24 05:59 100 mg TID ANAMARIA Administration Ceftriaxone Sodium/Dextrose 50 mls @ 100 mls/hr 04/04/24 17:30 04/08/24 10:11 Rocephin/D5w 1gm Iv Premix IV 04/11/24 17:29 Not Given QDAY ANAMARIA Albumin Human 25 gm in 100 mls @ 100 mls/min 04/07/24 13:30 Albuminar-25 Ivpb IV PRN PRN DIALYSIS Insulin Human Lispro 0 unit 04/04/24 21:00 04/08/24 12:15 Insulin Lispro (Admelog) 1 Unit/0.01 Ml Unit SC 05/04/24 20:59 Not Given ACHS ANAMARIA Protocol Lisinopril 20 mg 04/07/24 10:00 04/08/24 10:11 Lisinopril 20 Mg Tablet PO 05/07/24 09:59 Not Given QDAY ANAMARIA Ondansetron HCl 4 mg 04/04/24 17:24 Ondansetron Inj 2 Mg/Ml Inj 2 Ml IV 05/04/24 17:23 Q6H PRN NAUSEA OR VOMITING Protocol Polyethylene Glycol 17 gm 04/07/24 10:30 04/08/24 10:12 Polyethylene Glycol 17 Gm Packet PO 05/07/24 10:29 Not Given QDAY ANAMARIA Sennosides 1 tab 04/08/24 10:30 04/08/24 12:07 Senna Tablet PO 05/08/24 10:29 1 tab QDAY ANAMARIA Administration Protocol Sevelamer Carbonate 800 mg 04/06/24 12:00 04/08/24 12:07 Sevelamer Carbonate 800 Mg Tablet PO 05/06/24 11:59 800 mg TIDWM ANAMARIA Administration Sodium Chloride 3 ml 04/04/24 16:42 Sodium Chloride Rt Silv[place] 0.9% 3 Ml Nebu INH 05/04/24 16:41 PRN PRN SOLN Plan Patient is a 63-year-old male with a past medical history of hypertension, hyperlipidemia, diabetes mellitus type 2 insulin-dependent on trulicity 1.5 mg subq once a week, chronic kidney disease anasarca, HFpEF 55 to 50% (04/04/2024) admitted for acute hypoxic respiratory failure, secondary to acute on chronic CHF exacerbation w/ ANASARCA. #Acute hypoxic respiratory failure,improving #CHF exacerbation #Congestive Heart Failure HFpEF 55% to 50% (03/2024) #Pleural Effusion #ANASARCA Etiology: likely secondary to cardiomyopathy, worsened by cardio-renal syndrome with worsening anasarca. Positive for orthopnea , dyspnea, and PNO. Requiring oxygen on admission secondary to increased work of breathing. Please consider Bipap if needed or ABG for worsening work of breathing. NO thoracentesis planned, consider second Cxr for Thursday if increased RR still present. DDx: Less likley secondary to GA given no ST elevation on EKG and no troponin vs PE [place] 1.5 Diagnostics: TSH within limits CT: Mild to Moderate CHF, Prominent Pneumonia right base, Large right moderate left pleural effusion, Cirrhosis, mild ascites, cholelithiasis, Severe Anasarca, Promnent scrotal swelling and hydroceles Echo (): HFpEF 50-55% 04/08/2024 NET -2230 and Wt 108 kg (improved) NYHA Class: IV Plan: -consider [place] evaluation for AM to access work of breathing -Bumetanide 2 mg IVP Qday -Restart Carvedilol for 04/09/2024 -Thoracentesis US guided IR- None planned for now -K>4 and Mg >2 -SpO <90%, support PRN -Consider high flow or bipap if shortness of breath worsens or ABG -Daily Weights, Strict Ins and Outs, Fluid Striction (1500), Sodium Restriction 2 grams per day #New Diagnosis ESRD HD #s/p tunnel catheter on 04/06/2024 #CKD stage IV secondary to Diabetic Nephropathy Given patient's long standing CKD likely secondary to DM, patient's GFR continued to declines. ANASARCA present on admission, likely worsened by cardio- renal syndrome. UF on 04/07/2024 with first dialysis session scheduled for 04/08/2024, total fluid removed 2.5 L Plan -Dialysis planned for 04/08/2024 -PPD and Hepatitis Panel, including send out -Avoid nephrotoxins -Renally dose medication -Monitor Bicarb -consult Dr. Main, appreciate recommendations. #Hypertension #Hypertensive Urgency, resolved Patient's home medication of Hydralazine 100 mg TID. Start at a lower dose of hydralazine 50 mg TID. This morning patient experience hypertensive urgency, likely secondary to acute bleeding for site of temporary tunnel catheter. Added Lisinopril and Hydralazine. Plan -Hydralazine 100 mg TID (home dose), additional dose of Lisinopril 20 mg X 1 -Lisinopril 20 mg Qday -Hydralazine 10 mg IV PRN, for systolic BP >180 or diastolic BP >110. #Diabetes Mellitus Type 2 Insulin dependent Previous A1c 6.2% on 01/2024 with a glucose on admission of 154. A1c 6.4% (04/05/2024). Home medication of Trulicity (dulaglutide) subq weekly, consider holding with renal impairment and Glargine. plan: -Sliding scale -Order Free Style Lurdes 3 & [place] upon discharge -Holding Trulicity home medication -Monitor glucose in the AM #Hyperlipedimia Continue home medication of Atorvastatin 20 mg HS oral. Diagnostics: ASCVD 15.3% of cardiovascular event in the next 10 yrs. Moderate to high intensity statin recommended as risk >7.5% Plan -Atorvastatin 20 mg HS (moderate) #Normocytic Anemia, stable Patient has an extensive history of normocytic anemia likely secondary to chronic inflammation given history of CKD and diabetes mellitus vs Microcytic Anemia secondary to chronic inflammation given low iron level, low TIBC, and high ferritin on iron panel. Likely combination of both. Diagnostics: Hgb 9.1 and Hct 30.2 MCV 88 on admission Ferritin elevated Iron level low and low TIBIC Plan: -no acute intervention planned. -Treat underlying cause, consider adding iron supplementation -consider EPO by Nephrology, EPO given on 04/08/2024 #Mild Cirrhosis with Ascites Patient stated he has a history of remote alcohol use but denied excessive use. Negative Hepatisis. Negative HIV (01/28/2024). Alcohol <3.0 Consider MASH as BMI 35.0 with history of diabetes. Plan -Consider paracentesis -Continue to monitor #Acute Blood Loss secondary to temporary tunnel catheter, resolved #Hyperkalemia, resolved. #Non-anion gap, Metabolic acidosis, Resolved. Health Maintenance: Disp: Pt is currently admitted to floors for further management of CHF exacerbation, awaiting dialysis chair and Hepatitis labs FEN: low carb consistent, Fluid restricted 1500, and 2 gm per day DVT: compression device Code: Full code - The patient's plan was discussed with attending Dr. Aponte and senior residents Dr. Eleanor Cantu MD PGY1 Internal Medicine Senior Resident Attestation: I discussed with and supervised the internship coordinator physician involved in the care of this patient. I personally saw and examined the patient and discussed the assessment and plan with the entire medicine team, including my attending. I agree with the assessment and plan as documented above. - Patient's care was discussed with my attending physician. Henri Webster MD Internal Medicine PGY-3 Attending Provider Attestation/Addendum I have examined the patient, reviewed labs and imaging findings, discussed the case with the resident(s), and reviewed entered orders. I agree with the plan of care as outlined in this note, with these additional summaries/recommendations: Patient seen at bedside. No acute overnight events. Patient will go for tunneled dialysis catheter over the weekend. Status post hemodialysis today and appeared to tolerate well. No evidence of hyperkalemia today. Patient continues to have acute hypoxic respiratory failure with large pleural effusion which has been managed with dialysis and Bumex although still requiring oxygen. We will discuss with interventional radiology if thoracentesis can be performed. Continue insulin sliding scale for diabetes mellitus type 2. Blood pressure noted to be elevated today and we will adjust antihypertensive regimen as needed. Patient radiographically found to have cirrhosis although no evidence of synthetic liver dysfunction at this time. Outpatient follow-up. Platelets improved back to normal today and we will continue to monitor. Repeat hematology and chemistry panel in AM. Dr. Aponte
[2024-04-08] MEDS: Lisinopril 20 MG TABLET PO (18:00)
[2024-04-08] MEDS: ATORVASTATIN CALCIUM 20 MG TABLET PO (21:01)
[2024-04-09] VITALS (33 sets, daily range): BP systolic 135–187; BP diastolic 42–110; PULSE 58–90; RESP 12–23; TEMP 36.2–36.6; O2SAT 94–99; BMI 33.1
--- NOTE | 2024-04-09 05:00 | PC.NURSE ---
lab notified RN patient refused morning labs. Lab reports patient refused labs the day before as well, asked if could come back after breakfast to try again. Md notified, patient had pending lisinopril order depending on potassium level.
[2024-04-09] MEDS: hydrALAZINE HCL 25 MG TABLET 100 MG PO ×3 (05:49→21:04)
[2024-04-09] MEDS: SEVELAMER CARBONATE 800 MG TABLET PO ×2 (07:47→17:13)
[2024-04-09] MEDS: BUMETANIDE INJ 0.25 MG/ML VIAL 4 ML 2 MG IVP (09:34)
[2024-04-09] MEDS: cefTRIAXone/D5w 1gm IV premix 50 ML IV (09:34)
[2024-04-09] MEDS: SENNA TABLET 1 TAB PO (09:35)
[2024-04-09] MEDS: POLYETHYLENE GLYCOL 17 GM PACKET PO (09:35)
[2024-04-09] MEDS: carVEDILOL 12.5 MG TABLET 25 MG PO ×2 (09:35→17:13)
--- NOTE | 2024-04-09 09:41 | PD.NEPHPROG ---
Documentation for date of: 04/09/24 Subjective Subjective Interval history: Colton Sandoval is a 63-year-old male with a PMHx of HTN, HLD, insulin-dependent T2DM, HFpEF (EF 50-55% on 01/2024), and CKD stage IV presented on 04/04 for progressive dyspnea. Symptoms started three weeks ago with associated bilateral lower extremity edema, orthopnea, and paroxysmal nocturnal dyspnea. States that he sleeps with three pillows at night. Denies muscle pain, weakness, paresthesias, palpitations. Reports being compliant with his medications and follows-up with [facility]. Of note, patient admitted on 01/2024 for acute decompensated HF exacerbation with component of sepsis secondary to pneumonia and states that he does not follow-up with a community relations coordinator outpatient. In ED, BP 170/86, RR 31, on 4 L NC saturating 97%. Labs significant for hemoglobin 9.8 (BL 7.5), K 6.5, HCO3 18.2, BUN 54, Cr 2.7 (at BL), GFR 26 BNP 1100, troponin negative. CT C/A/P: Mild/moderate CHF, pneumonia on the right base, large right/moderate left effusions, cirrhosis, mild ascites, severe anasarca. EKG without peaked T waves, prolonged QRS complexes, or flattened P waves. Given calcium gluconate, albuterol and insulin + dextrose in ED, with repeat K decreasing to 6.2 (from 6.5). Also given 2 mg IV bumex. Admitted for management of AHRF secondary to decompensated CHF exacerbation. Nephrology consulted for hyperkalemia. 04/05: Seen and examined in telemetry. States that he is still short of breath but is not worse compared to yesterday. He is making good urine with 1 L urine output since being admitted yesterday, currently on 2 mg IV bumex BID. K downtrending from 6.5 -> 6.2 -> 5.8. Since ED, has received Kayexalate x1, and another round of albuterol/insulin + dextrose/calcium gluconate. 04/06: Seen and examined in telemetry. Today he does not have any complaints. Spoke to him regarding need for temporary dialysis and agrees to plan. Order placed for TDC placement and made NPO. Also placed orders for PPD, HIV and hepatitis panels and spoke to social sciences research scientist to inform of need for outpatient dialysis chair. K mildly increased from 5.6 to 5.7 while on IV bumex. Continues to have good urine output of 1.9 L in 24 hours. 04/07: Seen and examined in telemetry. S/p placement of temporary dialysis catheter on 04/06. Noted to have bleeding at IJ catheter site around 2300 and epinephrine-soaked gauze was placed with applied pressure with mild bleeding afterwards. Attempted to check hgb but patient refused labs at that time and also refused morning labs. Upon evaluation this morning, gauze was soaked in blood but not actively bleeding so was replaced with SurgiSeal and ordered desmopressin 20 mcg x1. Repeat CXR unremarkable, without signs of pneumothorax. Will plan for dialysis later today. 04/08: Seen and examined while undergoing dialysis, tolerating well. Underwent first session yesterday and tolerated well. IJ catheter site examined with minimal bleeding noted. Hemoglobin stable at 8.4. Sodium and potassium within normal limits, BUN stable at 61, creatinine stable at 2.6 prior to dialysis. 04/09/2024 patient currently seen on his third dialysis treatments. Denies any chest pain. Feeling much stronger. Edema seems to be improving. Labs, medications reviewed. Review of Systems Review of Systems Narrative Review of Systems: CONSTITUTIONAL: Patient denies any fever, chills. HEENT: Denies any visual disturbances or hearing problems. CARDIOVASCULAR: Patient denies any chest pain.complaining of shortness of breath, swelling in the lower extremities. PULMONARY: Patient complaining of shortness of breath, cough. GASTROINTESTINAL: Patient denies any abdominal pain, constipation, nausea, vomiting, diarrhea. GENITOURINARY: Patient denies any urinary symptoms of burning or frequency or hematuria, ++ form in the urine. SKIN: Stasis dermatitis MUSCULOSKELETAL: Complaining of gait imbalance. Right foot surgery NEUROLOGICAL: Denies any neurological problems of strokes, seizures or confusion. Denies any memory problems. PSYCHIATRIC: Admits depression Exam Vital Signs Temp Pulse Resp BP Pulse Ox O2 Del Method O2 Flow Rate 36.3 C 85 16 135/99 H 95 Nasal Cannula 2 04/09/24 08:00 04/09/24 09:35 04/09/24 09:09 04/09/24 09:35 04/09/24 09:09 04/09/24 08:00 04/09/24 09:09 Narrative Exam PE: Gen: Well-developed and well-nourished. On dialysis HEENT: NCAT, PERRLA, EOMI, MMM, anicteric conjunctivae. CVS: normal S1 and S2. RRR. No M/R/G. Resp: Lungs clear to auscultation bilaterally. Abd: Soft-anasarca MSK: Good ROM in BUE & BLE. Bilateral lower extremity edema with skin changes secondary to chronic PAD. Sacral edema. Neuro: CN II-XII grossly intact. Strength 5/5 in BUE & BLE. Alert and oriented x3. Psych: appropriate mood and affect. Objective Labs 04/09/24 12:15 04/09/24 12:15 Labs: Laboratory Results - last 24 hr 04/08/24 09:37 WBC 5.9 RBC 3.18 L Hgb 8.4 L Hct 27.7 L MCV 87 MCH 26.4 MCHC 30.3 L RDW Std Deviation 57.7 H Plt Count 199 Neut % (Auto) 60 Lymph % (Auto) 21 [place] % (Auto) 13 H Eos % (Auto) 5 Baso % (Auto) 0 Neut # (Auto) 3.5 Lymph # (Auto) 1.2 [place] # (Auto) 0.8 Eos # (Auto) 0.3 Baso # (Auto) 0.0 Immature Gran # (Auto) 0.02 H Absolute Nucleated RBC 0.00 Immature Gran % 0 Nucleated RBC % 0 Sodium 142 Potassium 5.0 Chloride 112 H Carbon Dioxide 22.1 Anion Gap 8 BUN 61 H Creatinine 2.6 H Estim Creat Clear Calc 35.9 L eGFR 27 L BUN/Creatinine Ratio 23 H Glucose 124 H Calculated Osmolality 301 H Calcium 8.2 L Corrected Calcium 8.8 Phosphorus 4.6 Magnesium 2.5 Total Bilirubin 0.3 AST < 10 ALT 14 Alkaline Phosphatase 165 H Total Protein 6.2 Albumin 3.3 L Globulin 2.9 Albumin/Globulin Ratio 1.1 L Assessment & Plan Additional Assessment & Plan Additional Plan: #CKD stage IV #Diabetic nephropathy vs nephrotic syndrome - 3+ protein on urinalysis, protein-creatinine ratio ordered #Cardiorenal syndrome #Normocytic anemia, likely secondary to CKD #Acute decompensated CHF exacerbation #HFpEF (EF 50-55% on 01/2024) #Type 2 diabetes mellitus, insulin-dependent #Hypertension #Hyperlipidemia Patient with recurrent episodes of congestive heart failure secondary to diabetic nephropathy(cardiorenal syndrome). Diuretic dependent/resistant with significant anasarca, recurrent hyperkalemia. Had a long conversation with patient regarding the need for dialysis to prevent recurrent hospitalizations and to maintain euvolemic state. Patient agreed for dialysis if indicated. Will place dialysis catheter in a.m. and initiate sequential ultrafiltration tomorrow. PPD, hep panel ordered. Outpatient dialysis arrangements to be done. 04/07/2024 patient yesterday had a right IJ Vas-Cath. Had wheezing overnight. This morning with the surgery still bleeding seems to have stopped. Ordered 1 dose of desmopressin but discontinued due to high blood pressure. Added ARB for proteinuria 04/09/2024 Patient currently seen on third dialysis. Tolerating dialysis without any problems. Hemodialysis for 3.5 hours, qb 200, 2K, ultrafiltration 4 L, Epogen 6000, no heparin ordered. Plan of care discussed with the dialysis nurse. Please see dialysis flowsheet for further details. Continue with po Bumex
--- NOTE | 2024-04-09 11:37 | PC.NURSE ---
Pt was seen and examined by Dr Main while on HD. Ordered to increase UF goal to 4 L as tolerated and tx time to 3.5 hrs. Orders noted and carried out.
[2024-04-09 12:56] LABS: Basophils % (Auto) 0 % (0-2.5); Eosinophils # (Auto) 0.3 Thou/mm3 (0.0-0.5); Eosinophils % (Auto) 6 % (0-10); Hematocrit 27.7 % (41.0-53.0); Immature Granulocytes % (Auto) 0 % (0-0); Immature Granulocytes Auto 0.02 Thou/mm3 (0.00-0.00); Lymphocytes # (Auto) 1.3 Thou/mm3 (1.0-4.8); Lymphocytes % (Auto) 21 % (10-50); Mean Corpuscular HGB Conc 30.3 g/dl (31.0-37.0); Mean Corpuscular Hemoglobin 26.6 pg (25.0-35.0); Mean Corpuscular Volume 88 fL (80-100); Monocytes # (Auto) 0.8 Thou/mm3 (0.0-0.8); Monocytes % (Auto) 13 % (0-12); Neutrophils # (Auto) 3.6 Thou/mm3 (1.8-7.7); Neutrophils % (Auto) 60 % (37-80); Nucleated Red Blood Cell % 0 /100 WBC (0); Platelet Count 182 Thou/mm3 (140-440); RDW Standard Deviation 57.1 fL (35.1-43.9); Red Blood Count 3.16 Miln/mm3 (4.50-5.90)
[2024-04-09 13:01] LABS: Hemoglobin 8.4 g/dL (13.5-16.0)
--- NOTE | 2024-04-09 13:13 | ESPR_ITS ---
Documentation for date of: 04/09/24 Subjective Subjective Interval history: No overnight events reported. Patient refused morning labs. Will be obtained with dialysis session this . Monitor K. NO dialysis planned for Thursday. PPD negative (04/08/2024). Patient transitioned to oral Bumex 2 mg Qday. Carvedilol restarted. D/C Lisinopril. Total output 350 and dialysis on 04/08/2024 removed 2.5 liters. Dialysis planned for this mooring. 4 liters removed on 04/09/2024. Work towards weaning patient off oxygen. May need oxygen at home. Plan to exchange current tunnel catheter to Perm cath Thursday. Made NPO after Midnight on 04/11/2024. INR/PT ordered for Thursday. Exam Vital Signs Temp Pulse Resp BP Pulse Ox O2 Del Method O2 Flow Rate 97.5 F 71 16 168/94 H 95 Nasal Cannula 2 04/09/24 10:39 04/09/24 13:00 04/09/24 10:39 04/09/24 13:00 04/09/24 10:39 04/09/24 08:00 04/09/24 10:39 Narrative Exam General Appearance: Alert & Oriented X3, well-nourished male who is lying in bed in no acute distress HEENT: Skull symmetrical and atraumatic. Conjunctivae pin and moist. Pupils equal, round, reactive to light and accommodation (PERRL). External ear without lesion or discharge. Straight, nares patient, mucosa pink, no discharge. No thyroid nodule appreciated. No cervical lymphadenopathy. Cardio: Normal Rate and Rhythm with S1 and S2 heart sounds. No murmurs or extra heart sounds auscultated. No bruits on carotid auscultation. Peripheral edema +3 Lungs: Symmetric with good expansion. Chest and back non-tender. Breath sounds vesicular improved work of breathing, with crackles still present. Abdomen: Non-tender, Non-distended, Normal Reactive Bowel Sounds Neuro: Alert, cooperative, oriented to person, place, and time. Speech clear. CN grossly intact. Upper motor strength 5/5 and Lower motor strength 5/5. Sensation intact. Objective Labs 04/09/24 12:15 04/09/24 12:15 Labs: Laboratory Results - last 24 hr 04/09/24 12:15 WBC 6.0 RBC 3.16 L Hgb 8.4 L Hct 27.7 L MCV 88 MCH 26.6 MCHC 30.3 L RDW Std Deviation 57.1 H Plt Count 182 Neut % (Auto) 60 Lymph % (Auto) 21 [place] % (Auto) 13 H Eos % (Auto) 6 Baso % (Auto) 0 Neut # (Auto) 3.6 Lymph # (Auto) 1.3 [place] # (Auto) 0.8 Eos # (Auto) 0.3 Baso # (Auto) 0.0 Immature Gran # (Auto) 0.02 H Absolute Nucleated RBC 0.00 Immature Gran % 0 Nucleated RBC % 0 Quality Measures Quality Measures none Assessment & Plan Assessment Current Active Medications: Generic Name Dose Route Start Last Admin Trade Name Freq PRN Reason Stop Dose Admin Acetaminophen 650 mg 04/04/24 17:24 Acetaminophen 325 Mg Tablet PO 05/04/24 17:23 Q6H PRN Mild Pain 1-3 or Fever >100.4 Atorvastatin Calcium 20 mg 04/04/24 21:00 04/08/24 21:01 Atorvastatin Calcium 20 Mg Tablet PO 05/04/24 20:59 20 mg HS ANAMARIA Administration Bumetanide 2 mg 04/10/24 09:00 Bumetanide 0.5 Mg Tablet PO 05/10/24 08:59 QDAY ANAMARIA Carvedilol 25 mg 04/09/24 10:00 04/09/24 09:35 Carvedilol 12.5 Mg Tablet PO 05/09/24 09:59 25 mg BIDWM ANAMARIA Administration Dextrose 25 ml 04/06/24 08:40 Dextrose 50%-Water Inj 50 Ml Syringe IV 05/06/24 08:39 Q15MIN PRN BG 50-70 responsive npo pt Dextrose 50 ml 04/06/24 08:40 Dextrose 50%-Water Inj 50 Ml Syringe IV 05/06/24 08:39 Q15MIN PRN BG <50 OR BG <70 & pt unresponsive Glucagon 1 mg 04/06/24 08:40 Glucagon Inj 1 Mg Vial IM Q15MIN PRN BG <70, and no IV access Heparin Sodium (Porcine) 3,700 unit 04/07/24 14:23 04/08/24 11:31 Heparin Sod Inj 1000 Unit/Ml Vial 10 Ml INDWELLCAT 04/21/24 14:22 3,700 unit PRN PRN Administration DIALYSIS Hydralazine HCl 10 mg 04/04/24 17:35 04/08/24 19:28 Hydralazine Inj 20 Mg/Ml Vial IV 05/04/24 17:34 10 mg Q4HR PRN Administration Hypertension Hydralazine HCl 100 mg 04/08/24 06:00 04/09/24 05:49 Hydralazine Hcl 25 Mg Tablet PO 05/08/24 05:59 100 mg TID ANAMARIA Administration Albumin Human 25 gm in 100 mls @ 100 mls/min 04/07/24 13:30 Albuminar-25 Ivpb IV PRN PRN DIALYSIS Insulin Human Lispro 0 unit 04/04/24 21:00 04/09/24 12:51 Insulin Lispro (Admelog) 1 Unit/0.01 Ml Unit SC 05/04/24 20:59 Not Given ACHS ANAMARIA Protocol Lisinopril 20 mg 04/09/24 09:00 04/09/24 09:32 Lisinopril 20 Mg Tablet PO 05/09/24 08:59 Not Given QDAY ANAMARIA Ondansetron HCl 4 mg 04/04/24 17:24 Ondansetron Inj 2 Mg/Ml Inj 2 Ml IV 05/04/24 17:23 Q6H PRN NAUSEA OR VOMITING Protocol Polyethylene Glycol 17 gm 04/07/24 10:30 04/09/24 09:35 Polyethylene Glycol 17 Gm Packet PO 05/07/24 10:29 17 gm QDAY ANAMARIA Administration Sennosides 1 tab 04/08/24 10:30 04/09/24 09:35 Senna Tablet PO 05/08/24 10:29 1 tab QDAY ANAMARIA Administration Protocol Sevelamer Carbonate 800 mg 04/06/24 12:00 04/09/24 12:51 Sevelamer Carbonate 800 Mg Tablet PO 05/06/24 11:59 Not Given TIDWM ANAMARIA Sodium Chloride 3 ml 04/04/24 16:42 Sodium Chloride Rt Silvina 0.9% 3 Ml Nebu INH 05/04/24 16:41 PRN PRN SOLN Plan Patient is a 63-year-old male with a past medical history of hypertension, hyperlipidemia, diabetes mellitus type 2 insulin-dependent on trulicity 1.5 mg subq once a week, chronic kidney disease anasarca, HFpEF 55 to 50% (04/04/2024) admitted for acute hypoxic respiratory failure, secondary to acute on chronic CHF exacerbation w/ ANASARCA. #Acute hypoxic respiratory failure,improving #CHF exacerbation #Congestive Heart Failure HFpEF 55% to 50% (03/2024) #Pleural Effusion #ANASARCA Etiology: likely secondary to cardiomyopathy, worsened by cardio-renal syndrome with worsening anasarca. Positive for orthopnea , dyspnea, and PNO. Requiring oxygen on admission secondary to increased work of breathing. Please consider Bipap if needed or ABG for worsening work of breathing. NO thoracentesis planned, consider second Cxr for Thursday if increased RR still present. DDx: Less likley secondary to [place] given no ST elevation on EKG and no troponin vs PE [place] 1.5 Diagnostics: TSH within limits CT: Mild to Moderate CHF, Prominent Pneumonia right base, Large right moderate left pleural effusion, Cirrhosis, mild ascites, cholelithiasis, Severe Anasarca, Promnent scrotal swelling and hydroceles Echo (): HFpEF 50-55% 04/08/2024 NET -2230 and Wt 108 kg (improved) NYHA Class: IV Plan: -Pending nurse to walk patient without oxygen and record spO2 levels -Bumetanide 2 mg oral Qday -Carvedilol 25 mg BID -K>4 and Mg >2 -SpO <90%, support PRN -Consider high flow or bipap if shortness of breath worsens or ABG -Daily Weights, Strict Ins and Outs, Fluid Striction (1500), Sodium Restriction 2 grams per day #New Diagnosis ESRD HD #s/p tunnel catheter on 04/06/2024 #CKD stage IV secondary to Diabetic Nephropathy Given patient's long standing CKD likely secondary to DM, patient's GFR continued to declines. ANASARCA present on admission, likely worsened by cardio- renal syndrome. UF on 04/07/2024 with first dialysis session scheduled for 04/08/2024, total fluid removed 2.5 L Second inpatient dialysis session completed on 04/09/2024 with removal of 4 Liters in total. Plan for Per Cath on Thursday morning Plan -[facility] on 04/09/2024 -Hepatits Panel Pending. *IgG core send out pending -NPO after midnight 04/11/2024, PT/INR for 04/11/2024 -Avoid nephrotoxins -Renally dose medication -Monitor Bicarb -consult Dr. Main, appreciate recommendations. #Hypertension #Hypertensive Urgency, resolved Patient's home medication of Hydralazine 100 mg TID. Start at a lower dose of hydralazine 50 mg TID. This morning patient experience hypertensive urgency, likely secondary to acute bleeding for site of temporary tunnel catheter. Added Lisinopril and Hydralazine. Plan -Hydralazine 100 mg TID (home dose), additional dose of Lisinopril 20 mg X 1 -Hydralazine 10 mg IV PRN, for systolic BP >180 or diastolic BP >110. #Diabetes Mellitus Type 2 Insulin dependent Previous A1c 6.2% on 01/2024 with a glucose on admission of 154. A1c 6.4% (04/05/2024). Home medication of Trulicity (dulaglutide) subq weekly, consider holding with renal impairment and Glargine. plan: -Sliding scale -Order Free Style Lurdes 3 & [place] upon discharge -Holding Trulicity home medication -Monitor glucose in the AM #Hyperlipedimia Continue home medication of Atorvastatin 20 mg HS oral. Diagnostics: ASCVD 15.3% of cardiovascular event in the next 10 yrs. Moderate to high intensity statin recommended as risk >7.5% Plan -Atorvastatin 20 mg HS (moderate) #Normocytic Anemia, stable Patient has an extensive history of normocytic anemia likely secondary to chronic inflammation given history of CKD and diabetes mellitus vs Microcytic Anemia secondary to chronic inflammation given low iron level, low TIBC, and high ferritin on iron panel. Likely combination of both. Diagnostics: Hgb 9.1 and Hct 30.2 MCV 88 on admission Ferritin elevated Iron level low and low TIBIC Plan: -no acute intervention planned. -Treat underlying cause, consider adding iron supplementation -consider EPO by Nephrology, EPO given on 04/08/2024 #Mild Cirrhosis with Ascites Patient stated he has a history of remote alcohol use but denied excessive use. Negative Hepatisis. Negative HIV (01/28/2024). Alcohol <3.0 Consider MASH as BMI 35.0 with history of diabetes. Plan -Consider paracentesis -Continue to monitor #Acute Blood Loss secondary to temporary tunnel catheter, resolved #Hyperkalemia, resolved. #Non-anion gap, Metabolic acidosis, Resolved. Health Maintenance: Disp: Pt is currently admitted to floors for further management of CHF exacerbation, awaiting dialysis chair and Hepatitis labs FEN: low carb consistent, Fluid restricted 1500, and 2 gm per day DVT: compression device Code: Full code - The patient's plan was discussed with attending Dr. Aponte and senior residents Dr. Eleanor Cantu MD PGY1 Internal Medicine Attending Provider Attestation/Addendum I have examined the patient, reviewed labs and imaging findings, discussed the case with the resident(s), and reviewed entered orders. I agree with the plan of care as outlined in this note, with these additional summaries/recommendations: Patient seen at bedside. No acute overnight events. Patient pending TDC and further hep B studies in anticipation of arranging outpatient hemodialysis. Patient went for hemodialysis again today and appeared to tolerate well. No evidence of hyperkalemia today. Continue insulin sliding scale for diabetes mellitus type 2. Blood pressure noted to be elevated today and although improved after adjusting antihypertensive regimen yesterday. Patient radiographically found to have cirrhosis although no evidence of synthetic liver dysfunction at this time. Outpatient follow-up. Platelets improved back to normal today and we will continue to monitor. Repeat hematology and chemistry panel in AM. Dr. Aponte
[2024-04-09 13:28] LABS: Alanine Aminotransferase 12 U/L (10-49); Albumin, Serum 3.5 gm/dL (3.4-4.8); Albumin/Globulin Ratio 1.2 (1.2-2.2); Alkaline Phosphatase 172 U/L (46-116); Anion Gap 9 (7-16); Aspartate Amino Transferase < 8 U/L (0-34); BUN/Creatinine Ratio 23 Ratio (12-20); Bilirubin,Total 0.3 mg/dL (0.3-1.2); Blood Urea Nitrogen 65 mg/dL (9-23); Calcium 8.2 mg/dL (8.3-10.6); Calcium (Corrected) 8.6 mg/dL (8.5-10.1); Carbon Dioxide 21.8 mMol/L (20.0-31.0); Chloride 110 mMol/L (98-107); Creatinine (Component) 2.8 mg/dL (0.6-1.3); Estimated Creatinine Clearance 32.9 mL/min (>60); Globulin 2.9 gm/dL (2.3-3.5); Glucose 116 mg/dL (74-106); Magnesium 2.5 mg/dL (1.6-2.6); Osmolality,Calculated 300 (275-295); Phosphorous 4.5 mg/dL (2.4-5.1); Potassium 4.9 mMol/L (3.4-5.1); Sodium 141 mMol/L (136-145); Total Protein 6.4 gm/dL (5.7-8.2); eGFR 25 See Note
--- NOTE | 2024-04-09 16:53 | PC.NURSE ---
Patient ambulated with assistance, the patient desaturated to 86% on room air with minimal ambulation. The patient was then returned to bed and the nasal cannula was reapplied to the patient at the previous rate of 2L. After reapplication of the nasal cannula the patients saturation returned to 97%. No distress noted in the patient after oxygen was reapplied.
[2024-04-09] MEDS: INSULIN LISPRO (AdmeLOG) 1 UNIT/0.01 ML UNIT SC (21:03)
[2024-04-09] MEDS: ATORVASTATIN CALCIUM 20 MG TABLET PO (21:04)
[2024-04-10] VITALS (15 sets, daily range): BP systolic 133–175; BP diastolic 69–90; PULSE 66–98; RESP 17–24; TEMP 36.1–36.5; O2SAT 93–100; BMI 33.4
[2024-04-10] MEDS: hydrALAZINE HCL 25 MG TABLET 100 MG PO ×3 (05:24→22:05)
--- NOTE | 2024-04-10 06:00 | PC.NURSE ---
Addendum entered by Gail Scott RN 04/10/24 07:04: MD [place] notified Original Note: Patient refused AM labs
[2024-04-10] MEDS: carVEDILOL 12.5 MG TABLET 25 MG PO ×2 (07:35→16:41)
[2024-04-10] MEDS: SEVELAMER CARBONATE 800 MG TABLET PO ×3 (07:35→16:41)
[2024-04-10] MEDS: Lisinopril 20 MG TABLET PO ×2 (08:52→16:41)
[2024-04-10] MEDS: BUMETANIDE 0.5 MG TABLET 2 MG PO (08:52)
--- NOTE | 2024-04-10 11:37 | ESPR_ITS ---
Documentation for date of: 04/10/24 Subjective Subjective Interval history: Patient was seen and examined at the bedside this morning. Patient refused labs. Vitals showed blood pressure 165/90. He was saturating well on 2 L NC. Urine output was 880 cc with positive balance of 565. Patient's lisinopril was resumed due to high blood pressure. Patient was explained that we need labs to monitor his white count and hemoglobin level and tomorrow he needs replacement of catheter to PermCath and would need lab for monitoring which he excepted. Patient is also currently waiting for hep B core antibody testing. Will continue with current management and await placement of PermCath tomorrow. N.p.o. after midnight. Labs showed hemoglobin 8, platelet 183. Sodium was 140 potassium 5.5. BUN 68 and creatinine 2.8. Breathing treatment with IV insulin 5 units and 100 mL amp of D50 was given for hyperkalemia. All labs and orders were reviewed. Exam Vital Signs Temp Pulse Resp BP Pulse Ox O2 Del Method O2 Flow Rate 97.5 F 77 17 137/77 H 100 Nasal Cannula 2 04/10/24 08:00 04/10/24 08:52 04/10/24 08:00 04/10/24 08:52 04/10/24 08:00 04/10/24 04:00 04/10/24 04:00 Narrative Exam General Appearance: Alert & Oriented X3, well-nourished male who is lying in bed in no acute distress HEENT: Skull symmetrical and atraumatic. Conjunctivae pin and moist. Pupils equal, round, reactive to light and accommodation (PERRL). External ear without lesion or discharge. Straight, nares patient, mucosa pink, no discharge. No thyroid nodule appreciated. No cervical lymphadenopathy. Cardio: Normal Rate and Rhythm with S1 and S2 heart sounds. No murmurs or extra heart sounds auscultated. No bruits on carotid auscultation. Peripheral edema +3 Lungs: Symmetric with good expansion. Chest and back non-tender. Breath sounds vesicular improved work of breathing, with crackles still present. Abdomen: Non-tender, Non-distended, Normal Reactive Bowel Sounds Neuro: Alert, cooperative, oriented to person, place, and time. Speech clear. CN grossly intact. Upper motor strength 5/5 and Lower motor strength 5/5. Sensation intact. Objective Labs 04/10/24 10:41 04/10/24 10:41 Labs: Laboratory Results - last 24 hr 04/09/24 12:15 WBC 6.0 RBC 3.16 L Hgb 8.4 L Hct 27.7 L MCV 88 MCH 26.6 MCHC 30.3 L RDW Std Deviation 57.1 H Plt Count 182 Neut % (Auto) 60 Lymph % (Auto) 21 [place] % (Auto) 13 H Eos % (Auto) 6 Baso % (Auto) 0 Neut # (Auto) 3.6 Lymph # (Auto) 1.3 [place] # (Auto) 0.8 Eos # (Auto) 0.3 Baso # (Auto) 0.0 Immature Gran # (Auto) 0.02 H Absolute Nucleated RBC 0.00 Immature Gran % 0 Nucleated RBC % 0 Sodium 141 Potassium 4.9 Chloride 110 H Carbon Dioxide 21.8 Anion Gap 9 BUN 65 H Creatinine 2.8 H Estim Creat Clear Calc 32.9 L eGFR 25 L BUN/Creatinine Ratio 23 H Glucose 116 H Calculated Osmolality 300 H Calcium 8.2 L Corrected Calcium 8.6 Phosphorus 4.5 Magnesium 2.5 Total Bilirubin 0.3 AST < 8 ALT 12 Alkaline Phosphatase 172 H Total Protein 6.4 Albumin 3.5 Globulin 2.9 Albumin/Globulin Ratio 1.2 Quality Measures Quality Measures VTE prophylaxis (SCDs) Assessment & Plan Assessment Current Active Medications: Generic Name Dose Route Start Last Admin Trade Name Freq PRN Reason Stop Dose Admin Acetaminophen 650 mg 04/04/24 17:24 Acetaminophen 325 Mg Tablet PO 05/04/24 17:23 Q6H PRN Mild Pain 1-3 or Fever >100.4 Atorvastatin Calcium 20 mg 04/04/24 21:00 04/09/24 21:04 Atorvastatin Calcium 20 Mg Tablet PO 05/04/24 20:59 20 mg HS ANAMARIA Administration Bumetanide 2 mg 04/10/24 09:00 04/10/24 08:52 Bumetanide 0.5 Mg Tablet PO 05/10/24 08:59 2 mg QDAY ANAMARIA Administration Carvedilol 25 mg 04/09/24 10:00 04/10/24 07:35 Carvedilol 12.5 Mg Tablet PO 05/09/24 09:59 25 mg BIDWM ANAMARIA Administration Dextrose 25 ml 04/06/24 08:40 Dextrose 50%-Water Inj 50 Ml Syringe IV 05/06/24 08:39 Q15MIN PRN BG 50-70 responsive npo pt Dextrose 50 ml 04/06/24 08:40 Dextrose 50%-Water Inj 50 Ml Syringe IV 05/06/24 08:39 Q15MIN PRN BG <50 OR BG <70 & pt unresponsive Glucagon 1 mg 04/06/24 08:40 Glucagon Inj 1 Mg Vial IM Q15MIN PRN BG <70, and no IV access Heparin Sodium (Porcine) 3,700 unit 04/07/24 14:23 04/08/24 11:31 Heparin Sod Inj 1000 Unit/Ml Vial 10 Ml INDWELLCAT 04/21/24 14:22 3,700 unit PRN PRN Administration DIALYSIS Hydralazine HCl 10 mg 04/04/24 17:35 04/08/24 19:28 Hydralazine Inj 20 Mg/Ml Vial IV 05/04/24 17:34 10 mg Q4HR PRN Administration Hypertension Hydralazine HCl 100 mg 04/08/24 06:00 04/10/24 05:24 Hydralazine Hcl 25 Mg Tablet PO 05/08/24 05:59 100 mg TID ANAMARIA Administration Albumin Human 25 gm in 100 mls @ 100 mls/min 04/07/24 13:30 Albuminar-25 Ivpb IV PRN PRN DIALYSIS Insulin Human Lispro 0 unit 04/04/24 21:00 04/10/24 11:06 Insulin Lispro (Admelog) 1 Unit/0.01 Ml Unit SC 05/04/24 20:59 Not Given ACHS [facility] Protocol Lisinopril 20 mg 04/09/24 09:00 04/10/24 08:52 Lisinopril 20 Mg Tablet PO 05/09/24 08:59 20 mg QDAY ANAMARIA Administration Ondansetron HCl 4 mg 04/04/24 17:24 Ondansetron Inj 2 Mg/Ml Inj 2 Ml IV 05/04/24 17:23 Q6H PRN NAUSEA OR VOMITING Protocol Polyethylene Glycol 17 gm 04/07/24 10:30 04/10/24 08:51 Polyethylene Glycol 17 Gm Packet PO 05/07/24 10:29 Not Given QDAY [facility] Sennosides 1 tab 04/08/24 10:30 04/10/24 08:51 Senna Tablet PO 05/08/24 10:29 Not Given QDAY ANAMARIA Protocol Sevelamer Carbonate 800 mg 04/06/24 12:00 04/10/24 07:35 Sevelamer Carbonate 800 Mg Tablet PO 05/06/24 11:59 800 mg TIDWM ANAMARIA Administration Sodium Chloride 3 ml 04/04/24 16:42 Sodium Chloride Rt Silvina 0.9% 3 Ml Nebu INH 05/04/24 16:41 PRN PRN SOLN Plan Patient is a 63-year-old male with a past medical history of hypertension, hyperlipidemia, diabetes mellitus type 2 insulin-dependent on trulicity 1.5 mg subq once a week, chronic kidney disease anasarca, HFpEF 55 to 50% (04/04/2024) admitted for acute hypoxic respiratory failure, secondary to acute on chronic CHF exacerbation w/ ANASARCA. #Acute hypoxic respiratory failure,improving #CHF exacerbation #Congestive Heart Failure HFpEF 55% to 50% (03/2024) #Pleural Effusion #ANASARCA Etiology: likely secondary to cardiomyopathy, worsened by cardio-renal syndrome with worsening anasarca. Positive for orthopnea , dyspnea, and PNO. Requiring oxygen on admission secondary to increased work of breathing. Please consider Bipap if needed or ABG for worsening work of breathing. NO thoracentesis planned, consider second Cxr for Thursday if increased RR still present. DDx: Less likley secondary to GA given no ST elevation on EKG and no troponin vs PE [place] 1.5 Diagnostics: TSH within limits CT: Mild to Moderate CHF, Prominent Pneumonia right base, Large right moderate left pleural effusion, Cirrhosis, mild ascites, cholelithiasis, Severe Anasarca, Promnent scrotal swelling and hydroceles Echo (): HFpEF 50-55% Patient was net +565 cc with total urine output 880 cc NYHA Class: IV Plan: -telephone services sales representative were updated regarding requirement of home oxygen -Bumetanide 2 mg oral Qday -Carvedilol 25 mg BID -K>4 and Mg >2 -SpO <90%, support PRN -Consider high flow or bipap if shortness of breath worsens or ABG -Daily Weights, Strict Ins and Outs, Fluid Striction (1500), Sodium Restriction 2 grams per day #New onset ESRD hemodialysis #s/p tunnel catheter on 04/06/2024 #CKD stage IV secondary to Diabetic Nephropathy Given patient's long standing CKD likely secondary to DM, patient's GFR continued to declines. ANASARCA present on admission, likely worsened by cardio- renal syndrome. UF on 04/07/2024 with first dialysis session scheduled for 04/08/2024, total fluid removed 2.5 L Second inpatient dialysis session completed on 04/09/2024 with removal of 4 Liters in total. Plan for Per Cath on Thursday morning Plan -Hepatits Panel Pending. *IgG core send out pending -NPO after midnight 04/11/2024, PT/INR for 04/11/2024 for PermCath placement tomorrow morning -Avoid nephrotoxins -Renally dose medication -Monitor Bicarb -consult Dr. Main, appreciate recommendations. #Hyperkalemia -Related to ESRD -Potassium was 5.5 Plan: -IV insulin 5 units given x 1 with amp of D50 100 mL -Breathing treatments given x 1 #Hypertension #Hypertensive Urgency, resolved Patient's home medication of Hydralazine 100 mg TID. Start at a lower dose of hydralazine 50 mg TID. This morning patient experience hypertensive urgency, likely secondary to acute bleeding for site of temporary tunnel catheter. Added Lisinopril and Hydralazine. Plan -We restarted lisinopril 20 mg, continue hydralazine 100 mg 3 times daily and Coreg 25 twice daily -Hydralazine 10 mg IV PRN, for systolic BP >180 or diastolic BP >110. #Diabetes Mellitus Type 2 Insulin dependent Previous A1c 6.2% on 01/2024 with a glucose on admission of 154. A1c 6.4% (04/05/2024). Home medication of Trulicity (dulaglutide) subq weekly, consider holding with renal impairment and Glargine. plan: -Sliding scale -Order Free Style [place] 3 & [place] upon discharge -Holding Trulicity home medication -Monitor glucose in the AM #Hyperlipedimia Continue home medication of Atorvastatin 20 mg HS oral. Diagnostics: ASCVD 15.3% of cardiovascular event in the next 10 yrs. Moderate to high intensity statin recommended as risk >7.5% Plan -Atorvastatin 20 mg HS (moderate) #Normocytic Anemia, stable Patient has an extensive history of normocytic anemia likely secondary to chronic inflammation given history of CKD and diabetes mellitus vs Microcytic Anemia secondary to chronic inflammation given low iron level, low TIBC, and high ferritin on iron panel. Likely combination of both. Diagnostics: Hgb 9.1 and Hct 30.2 MCV 88 on admission Ferritin elevated Iron level low and low TIBIC Plan: -no acute intervention planned. -Treat underlying cause, consider adding iron supplementation -consider EPO by Nephrology, EPO given on 04/08/2024 #Mild Cirrhosis with Ascites Patient stated he has a history of remote alcohol use but denied excessive use. Negative Hepatisis. Negative HIV (01/28/2024). Alcohol <3.0 Consider MASH as BMI 35.0 with history of diabetes. Plan -Consider paracentesis -Continue to monitor #Acute Blood Loss secondary to temporary tunnel catheter, resolved #Hyperkalemia, resolved. #Non-anion gap, Metabolic acidosis, Resolved. Health Maintenance: Disp: Pt is currently admitted to floors for further management of CHF exacerbation, awaiting dialysis chair and Hepatitis labs FEN: low carb consistent, Fluid restricted 1500, and 2 gm per day DVT: compression device Code: Full code - Patient was seen and discussed with attending physician, Dr. Fay Choi, PGY 2 Attending Provider Attestation/Addendum I have examined the patient, reviewed labs and imaging findings, discussed the case with the resident(s), and reviewed entered orders. I agree with the plan of care as outlined in this note, with these additional summaries/recommendations: Patient seen at bedside. No acute overnight events. Patient refused morning labs again today and counseled on the importance of needing labs and he showed understanding. Patient will go for TDC and further hep B studies in anticipation of arranging outpatient hemodialysis. Nephrology following. We will follow-up potassium level day once labs are complete to make sure high potassium has not returned. Continue insulin sliding scale for diabetes mellitus type 2. Blood pressure improving although not at goal, we will continue to adjust antihypertensive regimen as needed. Patient radiographically found to have cirrhosis although no evidence of synthetic liver dysfunction at this time. Outpatient follow-up. Platelets improved back to normal and we will continue to monitor. Repeat hematology and chemistry panel in AM. Dr. Aponte
[2024-04-10 11:53] LABS: Basophils % (Auto) 1 % (0-2.5); Eosinophils # (Auto) 0.3 Thou/mm3 (0.0-0.5); Eosinophils % (Auto) 5 % (0-10); Hematocrit 26.5 % (41.0-53.0); Immature Granulocytes % (Auto) 0 % (0-0); Immature Granulocytes Auto 0.02 Thou/mm3 (0.00-0.00); Lymphocytes # (Auto) 1.4 Thou/mm3 (1.0-4.8); Lymphocytes % (Auto) 22 % (10-50); Mean Corpuscular HGB Conc 30.2 g/dl (31.0-37.0); Mean Corpuscular Hemoglobin 26.3 pg (25.0-35.0); Mean Corpuscular Volume 87 fL (80-100); Monocytes # (Auto) 0.8 Thou/mm3 (0.0-0.8); Monocytes % (Auto) 13 % (0-12); Neutrophils # (Auto) 3.7 Thou/mm3 (1.8-7.7); Neutrophils % (Auto) 59 % (37-80); Nucleated Red Blood Cell % 0 /100 WBC (0); Platelet Count 183 Thou/mm3 (140-440); Red Blood Count 3.04 Miln/mm3 (4.50-5.90); White Blood Count 6.3 Thou/mm3 (3.8-10.6)
[2024-04-10 12:01] LABS: Alanine Aminotransferase 10 U/L (10-49); Albumin, Serum 3.3 gm/dL (3.4-4.8); Albumin/Globulin Ratio 1.2 (1.2-2.2); Alkaline Phosphatase 157 U/L (46-116); Anion Gap 8 (7-16); Aspartate Amino Transferase < 10 U/L (0-34); BUN/Creatinine Ratio 24 Ratio (12-20); Bilirubin,Total 0.3 mg/dL (0.3-1.2); Blood Urea Nitrogen 68 mg/dL (9-23); Calcium 8.1 mg/dL (8.3-10.6); Calcium (Corrected) 8.7 mg/dL (8.5-10.1); Carbon Dioxide 22.5 mMol/L (20.0-31.0); Chloride 110 mMol/L (98-107); Creatinine (Component) 2.8 mg/dL (0.6-1.3); Estimated Creatinine Clearance 32.9 mL/min (>60); Globulin 2.8 gm/dL (2.3-3.5); Glucose 107 mg/dL (74-106); Magnesium 2.4 mg/dL (1.6-2.6); Osmolality,Calculated 299 (275-295); Phosphorous 4.4 mg/dL (2.4-5.1); Potassium 5.5 mMol/L (3.4-5.1); Sodium 140 mMol/L (136-145); Total Protein 6.1 gm/dL (5.7-8.2); eGFR 25 See Note
[2024-04-10] MEDS: DEXTROSE 50%-WATER INJ 50 ML SYRINGE 100 ML IV (13:39)
[2024-04-10] MEDS: INSULIN HUM REGULAR 1 UNIT/0.01 ML (PER UNIT) 5 UNIT IV (13:41)
[2024-04-10] MEDS: ALBUTEROL/IPRATROPIUM (Duoneb) RT SOL 3 ML NEBU INH (13:56)
--- NOTE | 2024-04-10 14:12 | PC.PT ---
PT eval only. Patient is xI with bed mobility, transfers, and ambulation using a FWW and O2. Patient is at his PLOF. Patient is safe to ambulate to the bathroom and in the richey with the FWW and O2. RN notified.
--- NOTE | 2024-04-10 21:23 | ESPR_ITS ---
Documentation for date of: 04/10/24 Subjective Subjective Interval history: Colton Sandoval is a 63-year-old male with a PMHx of HTN, HLD, insulin-dependent T2DM, HFpEF (EF 50-55% on 01/2024), and CKD stage IV presented on 04/04 for progressive dyspnea. Symptoms started three weeks ago with associated bilateral lower extremity edema, orthopnea, and paroxysmal nocturnal dyspnea. States that he sleeps with three pillows at night. Denies muscle pain, weakness, paresthesias, palpitations. Reports being compliant with his medications and follows-up with [facility]. Of note, patient admitted on 01/2024 for acute decompensated HF exacerbation with component of sepsis secondary to pneumonia and states that he does not follow-up with a stonemason helper outpatient. In ED, BP 170/86, RR 31, on 4 L NC saturating 97%. Labs significant for hemoglobin 9.8 (BL 7.5), K 6.5, HCO3 18.2, BUN 54, Cr 2.7 (at BL), GFR 26 BNP 1100, troponin negative. CT C/A/P: Mild/moderate CHF, pneumonia on the right base, large right/moderate left effusions, cirrhosis, mild ascites, severe anasarca. EKG without peaked T waves, prolonged QRS complexes, or flattened P waves. Given calcium gluconate, albuterol and insulin + dextrose in ED, with repeat K decreasing to 6.2 (from 6.5). Also given 2 mg IV bumex. Admitted for management of AHRF secondary to decompensated CHF exacerbation. Nephrology consulted for hyperkalemia. 04/05: Seen and examined in telemetry. States that he is still short of breath but is not worse compared to yesterday. He is making good urine with 1 L urine output since being admitted yesterday, currently on 2 mg IV bumex BID. K downtrending from 6.5 -> 6.2 -> 5.8. Since ED, has received Kayexalate x1, and another round of albuterol/insulin + dextrose/calcium gluconate. 04/06: Seen and examined in telemetry. Today he does not have any complaints. Spoke to him regarding need for temporary dialysis and agrees to plan. Order placed for TDC placement and made NPO. Also placed orders for PPD, HIV and hepatitis panels and spoke to social human services assistants to inform of need for outpatient dialysis chair. K mildly increased from 5.6 to 5.7 while on IV bumex. Continues to have good urine output of 1.9 L in 24 hours. 04/07: Seen and examined in telemetry. S/p placement of temporary dialysis catheter on 04/06. Noted to have bleeding at IJ catheter site around 2300 and epinephrine-soaked gauze was placed with applied pressure with mild bleeding afterwards. Attempted to check hgb but patient refused labs at that time and also refused morning labs. Upon evaluation this morning, gauze was soaked in blood but not actively bleeding so was replaced with SurgiSeal and ordered desmopressin 20 mcg x1. Repeat CXR unremarkable, without signs of pneumothorax. Will plan for dialysis later today. 04/08: Seen and examined while undergoing dialysis, tolerating well. Underwent first session yesterday and tolerated well. IJ catheter site examined with minimal bleeding noted. Hemoglobin stable at 8.4. Sodium and potassium within normal limits, BUN stable at 61, creatinine stable at 2.6 prior to dialysis. 04/10/2024 patient so far received 3 dialysis treatments and is feeling much better. Denies any chest pain. Feeling much stronger. Edema seems to be improving. Labs, medications reviewed. Right IJ PermCath tomorrow. N.p.o. after midnight. Review of Systems Review of Systems Narrative Review of Systems: CONSTITUTIONAL: Patient denies any fever, chills. HEENT: Denies any visual disturbances or hearing problems. CARDIOVASCULAR: Patient denies any chest pain.complaining of shortness of breath, swelling in the lower extremities- better PULMONARY: Patient complaining of shortness of breath, cough. GASTROINTESTINAL: Patient denies any abdominal pain, constipation, nausea, vomiting, diarrhea. GENITOURINARY: Patient denies any urinary symptoms of burning or frequency or hematuria, ++ form in the urine. SKIN: Stasis dermatitis MUSCULOSKELETAL: Complaining of gait imbalance. Right foot surgery NEUROLOGICAL: Denies any neurological problems of strokes, seizures or confusion. Denies any memory problems. PSYCHIATRIC: Admits depression Exam Vital Signs Temp Pulse Resp BP Pulse Ox O2 Del Method O2 Flow Rate 36.3 C 98 17 164/81 H 98 Nasal Cannula 1 04/10/24 20:00 04/10/24 20:00 04/10/24 20:00 04/10/24 20:00 04/10/24 20:00 04/10/24 20:00 04/10/24 20:00 Narrative Exam PE: Gen: Well-developed and well-nourished. Currently seen in telemetry HEENT: NCAT, PERRLA, EOMI, MMM, anicteric conjunctivae. CVS: normal S1 and S2. RRR. No M/R/G. Resp: Lungs clear to auscultation bilaterally. Abd: Soft-anasarca MSK: Good ROM in BUE & BLE. Bilateral lower extremity edema with skin changes secondary to chronic PAD. Sacral edema. Neuro: CN II-XII grossly intact. Strength 5/5 in BUE & BLE. Alert and oriented x3. Psych: appropriate mood and affect. Objective Labs 04/10/24 10:41 04/10/24 10:41 Labs: Laboratory Results - last 24 hr 04/10/24 10:41 WBC 6.3 RBC 3.04 L Hgb 8.0 L Hct 26.5 L MCV 87 MCH 26.3 MCHC 30.2 L RDW Std Deviation 57.0 H Plt Count 183 Neut % (Auto) 59 Lymph % (Auto) 22 [place] % (Auto) 13 H Eos % (Auto) 5 Baso % (Auto) 1 Neut # (Auto) 3.7 Lymph # (Auto) 1.4 [place] # (Auto) 0.8 Eos # (Auto) 0.3 Baso # (Auto) 0.0 Immature Gran # (Auto) 0.02 H Absolute Nucleated RBC 0.00 Immature Gran % 0 Nucleated RBC % 0 Sodium 140 Potassium 5.5 H D Chloride 110 H Carbon Dioxide 22.5 Anion Gap 8 BUN 68 H Creatinine 2.8 H Estim Creat Clear Calc 32.9 L eGFR 25 L BUN/Creatinine Ratio 24 H Glucose 107 H Calculated Osmolality 299 H Calcium 8.1 L Corrected Calcium 8.7 Phosphorus 4.4 Magnesium 2.4 Total Bilirubin 0.3 AST < 10 ALT 10 Alkaline Phosphatase 157 H Total Protein 6.1 Albumin 3.3 L Globulin 2.8 Albumin/Globulin Ratio 1.2 Assessment & Plan Additional Assessment & Plan Additional Plan: #CKD stage IV #Diabetic nephropathy vs nephrotic syndrome - 3+ protein on urinalysis, protein- creatinine ratio ordered #Cardiorenal syndrome #Normocytic anemia, likely secondary to CKD #Acute decompensated CHF exacerbation #HFpEF (EF 50-55% on 01/2024) #Type 2 diabetes mellitus, insulin-dependent #Hypertension #Hyperlipidemia Patient with recurrent episodes of congestive heart failure secondary to diabetic nephropathy(cardiorenal syndrome). Diuretic dependent/resistant with significant anasarca, recurrent hyperkalemia. Had a long conversation with patient regarding the need for dialysis to prevent recurrent hospitalizations and to maintain euvolemic state. Patient agreed for dialysis if indicated. Will place dialysis catheter in a.m. and initiate sequential ultrafiltration tomorrow. PPD, hep panel ordered. Outpatient dialysis arrangements to be done. 04/07/2024 patient yesterday had a right IJ Vas-Cath. Had wheezing overnight. This morning with the surgery still bleeding seems to have stopped. Ordered 1 dose of desmopressin but discontinued due to high blood pressure. Added ARB for proteinuria 04/09/2024 Patient currently seen on third dialysis. Tolerating dialysis without any problems. Hemodialysis for 3.5 hours, qb 200, 2K, ultrafiltration 4 L, Epogen 6000, no heparin ordered. Plan of care discussed with the dialysis nurse. Please see dialysis flowsheet for further details. Continue with po Bumex 04/10/2024 patient currently seen in telemetry. Feeling much better. Right IJ PermCath in AM. Outpatient dialysis is arranged can be discharged.
[2024-04-10] MEDS: ATORVASTATIN CALCIUM 20 MG TABLET PO (22:05)
[2024-04-11] VITALS (40 sets, daily range): BP systolic 129–203; BP diastolic 63–101; PULSE 66–99; RESP 14–28; TEMP 35.8–36.8; O2SAT 93–100; BMI 33.4
--- NOTE | 2024-04-11 | XR_ITS ---
Venous access removal temporary dialysis catheter Permanent tunneled dialysis catheter insertion, percutaneous Fluoroscopy AP chest, portable, single view. Date and time of procedure: April 11, 2024 0924 hours INDICATIONS: Renal failure patient, need for long-term dialysis with permanent tunneled dialysis catheter, patient currently has a temporary dialysis catheter Informed consent provided Technique: A timeout was completed verifying correct patient, procedure, site, positioning, and special equipment if applicable. The patient was placed in a dependent position appropriate for dialysis catheter placement based on the vein to be cannulated. The patient'sright neck was prepped and draped in sterile fashion. Maximum Sterile Barrier Technique used including cap, mask, sterile gown, sterile gloves, and sterile full body drape. 0.35 wire guide herniation the temporary dialysis catheter Subcutaneous tunnel formed in the upper chest. Permanent tunneled dialysis catheter placed in the subcutaneous tunnel. Removal of the temporary dialysis catheter over the wire guide Dilators were introduced over the J-wire guide. Tunneled dialysis catheter is introduced through a dilator with venous sheath into the superior vena cava under fluoroscopic guidance. The catheter is sutured in place to the skin and a sterile dressing applied. Perfusion to the extremity distal to the point of catheter insertion is checked and found to be adequate Attending radiologist was present for the entire procedure Estimated blood loss2 cc. The patient tolerated the procedure well and there were no complications Impression: Venous assess removal temporary dialysis catheter Successful permanent tunneled dialysis catheter insertion, percutaneous Fluoroscopy 0.3 minute radiation dose 5.72 milligray 1 spot fluoroscopic chest film. AP chest performed at completion procedure demonstrates satisfactory position dialysis catheter. May use dialysis catheter.
[2024-04-11] MEDS: hydrALAZINE HCL 25 MG TABLET 100 MG PO ×3 (05:04→21:10)
[2024-04-11 06:50] LABS: Hepatitis B Core Ab,Total* NONREACTIVE
--- NOTE | 2024-04-11 09:22 | ESPR_ITS ---
Documentation for date of: 04/11/24 Subjective Subjective Interval history: Colton Sandoval is a 63-year-old male with a PMHx of HTN, HLD, insulin-dependent T2DM, HFpEF (EF 50-55% on 01/2024), and CKD stage IV presented on 04/04 for progressive dyspnea. Symptoms started three weeks ago with associated bilateral lower extremity edema, orthopnea, and paroxysmal nocturnal dyspnea. States that he sleeps with three pillows at night. Denies muscle pain, weakness, paresthesias, palpitations. Reports being compliant with his medications and follows-up with [facility]. 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 In ED, BP 170/86, RR 31, on 4 L NC saturating 97%. Labs significant for hemoglobin 9.8 (BL 7.5), K 6.5, HCO3 18.2, BUN 54, Cr 2.7 (at BL), GFR 26 BNP 1100, troponin negative. CT C/A/P: Mild/moderate CHF, pneumonia on the right base, large right/moderate left effusions, cirrhosis, mild ascites, severe anasarca. EKG without peaked T waves, prolonged QRS complexes, or flattened P waves. Given calcium gluconate, albuterol and insulin + dextrose in ED, with repeat K decreasing to 6.2 (from 6.5). Also given 2 mg IV bumex. Admitted for management of AHRF secondary to decompensated CHF exacerbation. Nephrology consulted for hyperkalemia. 04/05: Seen and examined in telemetry. States that he is still short of breath but is not worse compared to yesterday. He is making good urine with 1 L urine output since being admitted yesterday, currently on 2 mg IV bumex BID. K downtrending from 6.5 -> 6.2 -> 5.8. Since ED, has received Kayexalate x1, and another round of albuterol/insulin + dextrose/calcium gluconate. 04/06: Seen and examined in telemetry. Today he does not have any complaints. Spoke to him regarding need for temporary dialysis and agrees to plan. Order placed for TDC placement and made NPO. Also placed orders for PPD, HIV and hepatitis panels and spoke to health care social worker to inform of need for outpatient dialysis chair. K mildly increased from 5.6 to 5.7 while on IV bumex. Continues to have good urine output of 1.9 L in 24 hours. 04/07: Seen and examined in telemetry. S/p placement of temporary dialysis catheter on 04/06. Noted to have bleeding at IJ catheter site around 2300 and epinephrine-soaked gauze was placed with applied pressure with mild bleeding afterwards. Attempted to check hgb but patient refused labs at that time and also refused morning labs. Upon evaluation this morning, gauze was soaked in blood but not actively bleeding so was replaced with SurgiSeal and ordered desmopressin 20 mcg x1. Repeat CXR unremarkable, without signs of pneumothorax. Will plan for dialysis later today. 04/08: Seen and examined while undergoing dialysis, tolerating well. Underwent first session yesterday and tolerated well. IJ catheter site examined with minimal bleeding noted. Hemoglobin stable at 8.4. Sodium and potassium within normal limits, BUN stable at 61, creatinine stable at 2.6 prior to dialysis. 04/10/2024 patient so far received 3 dialysis treatments and is feeling much better. Denies any chest pain. Feeling much stronger. Edema seems to be improving. Labs, medications reviewed. Right IJ PermCath tomorrow. N.p.o. after midnight. 04/11/2024 patient currently seen in telemetry. Scheduled for dialysis catheter and her dialysis today. Once outpatient dialysis arrangements are made he can be discharged. Edema markedly improved. Still with shortness of breath. On p.o. Bumex. Review of Systems Review of Systems Narrative Review of Systems: CONSTITUTIONAL: Patient denies any fever, chills. HEENT: Denies any visual disturbances or hearing problems. CARDIOVASCULAR: Patient denies any chest pain.complaining of shortness of breath, swelling in the lower extremities- better PULMONARY: Patient complaining of shortness of breath, cough. GASTROINTESTINAL: Patient denies any abdominal pain, constipation, nausea, vomiting, diarrhea. GENITOURINARY: Patient denies any urinary symptoms of burning or frequency or hematuria, ++ form in the urine. SKIN: Stasis dermatitis MUSCULOSKELETAL: Complaining of gait imbalance. Right foot surgery NEUROLOGICAL: Denies any neurological problems of strokes, seizures or confusion. Denies any memory problems. PSYCHIATRIC: Admits depression Exam Vital Signs Temp Pulse Resp BP Pulse Ox O2 Del Method O2 Flow Rate 36.1 C 75 14 155/84 H 97 Nasal Cannula 2 04/11/24 08:00 04/11/24 08:00 04/11/24 08:00 04/11/24 08:00 04/11/24 08:00 04/11/24 08:00 04/11/24 08:00 Narrative Exam PE: Gen: Well-developed and well-nourished. Currently seen in telemetry HEENT: NCAT, PERRLA, EOMI, MMM, anicteric conjunctivae. CVS: normal S1 and S2. RRR. No M/R/G. Resp: Lungs clear to auscultation bilaterally. Abd: Soft-anasarca MSK: Good ROM in BUE & BLE. Bilateral lower extremity edema with skin changes secondary to chronic PAD. Sacral edema. Neuro: CN II-XII grossly intact. Strength 5/5 in BUE & BLE. Alert and oriented x3. Psych: appropriate mood and affect. Objective Labs 04/11/24 08:59 04/11/24 08:59 Labs: Laboratory Results - last 24 hr 04/07/24 04/10/24 04/11/24 09:50 10:41 08:59 WBC 6.3 RBC 3.04 L Hgb 8.0 L Hct 26.5 L MCV 87 MCH 26.3 MCHC 30.2 L RDW Std Deviation 57.0 H Plt Count 183 Neut % (Auto) 59 Lymph % (Auto) 22 [place] % (Auto) 13 H Eos % (Auto) 5 Baso % (Auto) 1 Neut # (Auto) 3.7 Lymph # (Auto) 1.4 [place] # (Auto) 0.8 Eos # (Auto) 0.3 Baso # (Auto) 0.0 Immature Gran # (Auto) 0.02 H Absolute Nucleated RBC 0.00 Immature Gran % 0 Nucleated RBC % 0 Sodium 140 Potassium 5.5 H D Chloride 110 H Carbon Dioxide 22.5 Anion Gap 8 BUN 68 H Creatinine 2.8 H Estim Creat Clear Calc 32.9 L eGFR 25 L BUN/Creatinine Ratio 24 H Glucose 107 H Calculated Osmolality 299 H Calcium 8.1 L Corrected Calcium 8.7 Phosphorus 4.4 Magnesium 2.4 Total Bilirubin 0.3 AST < 10 ALT 10 Alkaline Phosphatase 157 H Total Protein 6.1 Albumin 3.3 L Globulin 2.8 Albumin/Globulin Ratio 1.2 Hep B Core Total Ab NONREACTIVE Misc Test Result See Sep Rpt Crossmatch See Detail Assessment & Plan Additional Assessment & Plan Additional Plan: #CKD stage IV #Diabetic nephropathy vs nephrotic syndrome - 3+ protein on urinalysis, protein- creatinine ratio ordered #Cardiorenal syndrome #Normocytic anemia, likely secondary to CKD #Acute decompensated CHF exacerbation #HFpEF (EF 50-55% on 01/2024) #Type 2 diabetes mellitus, insulin-dependent #Hypertension #Hyperlipidemia Patient with recurrent episodes of congestive heart failure secondary to diabetic nephropathy(cardiorenal syndrome). Diuretic dependent/resistant with significant anasarca, recurrent hyperkalemia. Had a long conversation with patient regarding the need for dialysis to prevent recurrent hospitalizations and to maintain euvolemic state. Patient agreed for dialysis if indicated. Will place dialysis catheter in a.m. and initiate sequential ultrafiltration tomorrow. PPD, hep panel ordered. Outpatient dialysis arrangements to be done. 04/07/2024 patient yesterday had a right IJ Vas-Cath. Had wheezing overnight. This morning with the surgery still bleeding seems to have stopped. Ordered 1 dose of desmopressin but discontinued due to high blood pressure. Added ARB for proteinuria 04/11/2024 status post permanent dialysis catheter. On dialysis Hemodialysis for 3.5 hours, qb 200, 2K, ultrafiltration 4 L, Epogen 6000, no heparin ordered. Plan of care discussed with the dialysis nurse. Please see dialysis flowsheet for further details. Continue with po Bumex once Outpatient dialysis is arranged can be discharged. Quality - progress note Quality Measures Quality Measures: VTE prophylaxis Reason for Continued Stay Reason for Continued Stay: further monitoring
[2024-04-11 09:26] LABS: Basophils % (Auto) 0 % (0-2.5); Eosinophils # (Auto) 0.4 Thou/mm3 (0.0-0.5); Eosinophils % (Auto) 6 % (0-10); Immature Granulocytes % (Auto) 0 % (0-0); Immature Granulocytes Auto 0.02 Thou/mm3 (0.00-0.00); Lymphocytes # (Auto) 1.4 Thou/mm3 (1.0-4.8); Lymphocytes % (Auto) 21 % (10-50); Mean Corpuscular Hemoglobin 26.1 pg (25.0-35.0); Mean Corpuscular Volume 87 fL (80-100); Monocytes # (Auto) 0.8 Thou/mm3 (0.0-0.8); Monocytes % (Auto) 13 % (0-12); Neutrophils # (Auto) 3.8 Thou/mm3 (1.8-7.7); Neutrophils % (Auto) 60 % (37-80); Nucleated Red Blood Cell % 0 /100 WBC (0); Platelet Count 195 Thou/mm3 (140-440); RDW Standard Deviation 56.8 fL (35.1-43.9); Red Blood Count 3.33 Miln/mm3 (4.50-5.90); White Blood Count 6.4 Thou/mm3 (3.8-10.6)
[2024-04-11 09:37] LABS: Partial Thromboplastin Time 28.8 Seconds (22.0-36.0); Prothrombin Time 11.4 Seconds (9.0-12.2)
[2024-04-11 09:40] LABS: Alanine Aminotransferase 10 U/L (10-49); Albumin, Serum 3.3 gm/dL (3.4-4.8); Albumin/Globulin Ratio 1.1 (1.2-2.2); Alkaline Phosphatase 173 U/L (46-116); Anion Gap 9 (7-16); Aspartate Amino Transferase 12 U/L (0-34); BUN/Creatinine Ratio 21 Ratio (12-20); Bilirubin,Total 0.3 mg/dL (0.3-1.2); Blood Urea Nitrogen 62 mg/dL (9-23); Calcium 8.5 mg/dL (8.3-10.6); Calcium (Corrected) 9.1 mg/dL (8.5-10.1); Carbon Dioxide 20.6 mMol/L (20.0-31.0); Chloride 110 mMol/L (98-107); Creatinine (Component) 2.9 mg/dL (0.6-1.3); Estimated Creatinine Clearance 31.8 mL/min (>60); Glucose 98 mg/dL (74-106); Magnesium 2.4 mg/dL (1.6-2.6); Osmolality,Calculated 297 (275-295); Phosphorous 4.2 mg/dL (2.4-5.1); Potassium 5.5 mMol/L (3.4-5.1); Sodium 140 mMol/L (136-145); Total Protein 6.3 gm/dL (5.7-8.2); eGFR 24 See Note
[2024-04-11] MEDS: HEPARIN SOD LOCK SYR 100 UNIT/ML STFIELD (10:20)
[2024-04-11] MEDS: LIDOCAINE INJ PF 1% 30 ML VIAL 9 ML INFL (10:25)
[2024-04-11] MEDS: fentaNYL CIT INJ 50 mCg/ML AMP 2ML 75 MCG IVP (10:25)
--- NOTE | 2024-04-11 10:35 | PC.SS ---
SS follow up note; SS sent Heb B core results to [facility].
[2024-04-11] MEDS: HEPARIN SOD INJ 1000 UNIT/ML VIAL 4100 UNIT INDWELLCAT (10:45)
[2024-04-11 10:57] LABS: Hemoglobin 8.7 g/dL (13.5-16.0)
--- NOTE | 2024-04-11 11:00 | PD.RESPRO ---
Documentation for date of: 04/12/24 Subjective Subjective Interval history: Patient was seen and examined at the bedside. Patient reported that he refused labs because of constant poking and feels uncomfortable. We recommended that he should have labs as he is currently being monitored for electrolytes and hemoglobin levels. Vitals were stable. CHEM panel was consistent with ESRD pattern. Patient received PermCath without complication. Chest x-ray was unremarkable post PermCath placement. Patient is currently waiting for home oxygen and awaiting authorization. Received hemodialysis per schedule. His outpatient dialysis is Thursday. All labs and orders were reviewed. Exam Vital Signs Temp Pulse Resp BP Pulse Ox O2 Del Method O2 Flow Rate 97.2 F 70 17 131/63 H 95 Nasal Cannula 2 04/11/24 23:52 04/12/24 00:00 04/11/24 23:52 04/11/24 23:52 04/11/24 23:52 04/11/24 17:30 04/11/24 23:22 Narrative Exam General Appearance: Alert & Oriented X3, well-nourished male who is lying in bed in no acute distress HEENT: Skull symmetrical and atraumatic. Conjunctivae pin and moist. Pupils equal, round, reactive to light and accommodation (PERRL). External ear without lesion or discharge. Straight, nares patient, mucosa pink, no discharge. No thyroid nodule appreciated. No cervical lymphadenopathy. Cardio: Normal Rate and Rhythm with S1 and S2 heart sounds. No murmurs or extra heart sounds auscultated. No bruits on carotid auscultation. Peripheral edema +2 Lungs: Symmetric with good expansion. Chest and back non-tender. Breath sounds vesicular improved work of breathing, with crackles still present. Abdomen: Non-tender, Non-distended, Normal Reactive Bowel Sounds Neuro: Alert, cooperative, oriented to person, place, and time. Speech clear. CN grossly intact. Upper motor strength 5/5 and Lower motor strength 5/5. Sensation intact. Objective Labs 04/11/24 08:59 04/11/24 08:59 Labs: Laboratory Results - last 24 hr 04/11/24 08:59 WBC 6.4 RBC 3.33 L Hgb 8.7 L Hct 29.0 L MCV 87 MCH 26.1 MCHC 30.0 L RDW Std Deviation 56.8 H Plt Count 195 Neut % (Auto) 60 Lymph % (Auto) 21 [place] % (Auto) 13 H Eos % (Auto) 6 Baso % (Auto) 0 Neut # (Auto) 3.8 Lymph # (Auto) 1.4 [place] # (Auto) 0.8 Eos # (Auto) 0.4 Baso # (Auto) 0.0 Immature Gran # (Auto) 0.02 H Absolute Nucleated RBC 0.00 Immature Gran % 0 Nucleated RBC % 0 PT 11.4 INR 1.0 APTT 28.8 Sodium 140 Potassium 5.5 H Chloride 110 H Carbon Dioxide 20.6 Anion Gap 9 BUN 62 H Creatinine 2.9 H Estim Creat Clear Calc 31.8 L eGFR 24 L BUN/Creatinine Ratio 21 H Glucose 98 Calculated Osmolality 297 H Calcium 8.5 Corrected Calcium 9.1 Phosphorus 4.2 Magnesium 2.4 Total Bilirubin 0.3 AST 12 ALT 10 Alkaline Phosphatase 173 H Total Protein 6.3 Albumin 3.3 L Globulin 3.0 Albumin/Globulin Ratio 1.1 L Blood Type O Positive Antibody Screen NEGATIVE Crossmatch See Detail Blood Bank Wristband ID Yes Quality Measures Quality Measures VTE prophylaxis Assessment & Plan Assessment Current Active Medications: Generic Name Dose Route Start Last Admin Trade Name Freq PRN Reason Stop Dose Admin Acetaminophen 650 mg 04/04/24 17:24 Acetaminophen 325 Mg Tablet PO 05/04/24 17:23 Q6H PRN Mild Pain 1-3 or Fever >100.4 Atorvastatin Calcium 20 mg 04/04/24 21:00 04/11/24 20:27 Atorvastatin Calcium 20 Mg Tablet PO 05/04/24 20:59 20 mg HS ANAMARIA Administration Bumetanide 2 mg 04/10/24 09:00 04/11/24 08:59 Bumetanide 0.5 Mg Tablet PO 05/10/24 08:59 Not Given QDAY ANAMARIA Carvedilol 25 mg 04/09/24 10:00 04/11/24 16:43 Carvedilol 12.5 Mg Tablet PO 05/09/24 09:59 25 mg BIDWM ANAMARIA Administration Dextrose 25 ml 04/06/24 08:40 Dextrose 50%-Water Inj 50 Ml Syringe IV 05/06/24 08:39 Q15MIN PRN BG 50-70 responsive npo pt Dextrose 50 ml 04/06/24 08:40 Dextrose 50%-Water Inj 50 Ml Syringe IV 05/06/24 08:39 Q15MIN PRN BG <50 OR BG <70 & pt unresponsive Glucagon 1 mg 04/06/24 08:40 Glucagon Inj 1 Mg Vial IM Q15MIN PRN BG <70, and no IV access Heparin Sodium (Porcine) 4,100 unit 04/11/24 15:47 04/11/24 16:18 Heparin Sod Inj 1000 Unit/Ml Vial 10 Ml INDWELLCAT 04/25/24 15:46 4,100 unit PRN PRN Administration DIALYSIS Hydralazine HCl 10 mg 04/04/24 17:35 04/08/24 19:28 Hydralazine Inj 20 Mg/Ml Vial IV 05/04/24 17:34 10 mg Q4HR PRN Administration Hypertension Hydralazine HCl 100 mg 04/08/24 06:00 04/11/24 21:10 Hydralazine Hcl 25 Mg Tablet PO 05/08/24 05:59 100 mg TID ANAMARIA Administration Albumin Human 25 gm in 100 mls @ 100 mls/min 04/07/24 13:30 Albuminar-25 Ivpb IV PRN PRN DIALYSIS Insulin Human Lispro 0 unit 04/04/24 21:00 04/11/24 21:10 Insulin Lispro (Admelog) 1 Unit/0.01 Ml Unit SC 05/04/24 20:59 2 unit ACHS ANAMARIA Administration Protocol Lisinopril 40 mg 04/11/24 09:00 04/11/24 08:59 Lisinopril 20 Mg Tablet PO 05/11/24 08:59 Not Given QDAY ANAMARIA Ondansetron HCl 4 mg 04/04/24 17:24 Ondansetron Inj 2 Mg/Ml Inj 2 Ml IV 05/04/24 17:23 Q6H PRN NAUSEA OR VOMITING Protocol Patiromer 8.4 gm 04/11/24 14:30 04/11/24 16:43 Patiromer Calcium 8.4 Gm Packet (Non-Form) PO 05/11/24 14:29 8.4 gm QDAY ANAMARIA Administration Polyethylene Glycol 17 gm 04/07/24 10:30 04/11/24 08:14 Polyethylene Glycol 17 Gm Packet PO 05/07/24 10:29 Not Given QDAY ANAMARIA Sennosides 1 tab 04/08/24 10:30 04/11/24 08:15 Senna Tablet PO 05/08/24 10:29 Not Given QDAY [facility] Protocol Sevelamer Carbonate 800 mg 04/06/24 12:00 04/11/24 16:43 Sevelamer Carbonate 800 Mg Tablet PO 05/06/24 11:59 800 mg TIDWM ANAMARIA Administration Sodium Chloride 3 ml 04/04/24 16:42 Sodium Chloride Rt Silvina 0.9% 3 Ml Nebu INH 05/04/24 16:41 PRN PRN SOLN Plan magan is a 63-year-old male with a past medical history of hypertension, hyperlipidemia, diabetes mellitus type 2 insulin-dependent on trulicity 1.5 mg subq once a week, chronic kidney disease anasarca, HFpEF 55 to 50% (04/04/2024) admitted for acute hypoxic respiratory failure, secondary to acute on chronic CHF exacerbation w/ ANASARCA. #Acute hypoxic respiratory failure,improving #CHF exacerbation #Congestive Heart Failure HFpEF 55% to 50% (03/2024) #Pleural Effusion #ANASARCA Etiology: likely secondary to cardiomyopathy, worsened by cardio-renal syndrome with worsening anasarca. Positive for orthopnea , dyspnea, and PNO. Requiring oxygen on admission secondary to increased work of breathing. Please consider Bipap if needed or ABG for worsening work of breathing. NO thoracentesis planned, consider second Cxr for Thursday if increased RR still present. DDx: Less likley secondary to MO given no ST elevation on EKG and no troponin vs PE [place] 1.5 Diagnostics: TSH within limits CT: Mild to Moderate CHF, Prominent Pneumonia right base, Large right moderate left pleural effusion, Cirrhosis, mild ascites, cholelithiasis, Severe Anasarca, Promnent scrotal swelling and hydroceles Echo (): HFpEF 50-55% Patient was net +565 cc with total urine output 880 cc NYHA Class: IV Plan: -Outpatient dialysis Thursday set up -Pending home oxygen authorization -Bumetanide 2 mg oral Qday -Carvedilol 25 mg BID -K>4 and Mg >2 -SpO <90%, support PRN -Consider high flow or bipap if shortness of breath worsens or ABG -Daily Weights, Strict Ins and Outs, Fluid Striction (1500), Sodium Restriction 2 grams per day #New onset ESRD hemodialysis, Thursday #S/p PermCath placement, 04/11 #CKD stage IV secondary to Diabetic Nephropathy Given patient's long standing CKD likely secondary to DM, patient's GFR continued to declines. ANASARCA present on admission, likely worsened by cardio-renal syndrome. UF on 04/07/2024 with first dialysis session scheduled for 04/08/2024, total fluid removed 2.5 L Second inpatient dialysis session completed on 04/09/2024 with removal of 4 Liters in total. Plan for Per Cath on Thursday Plan -Hepatitis B core antibody negative -PermCath placed today -Avoid nephrotoxins -Renally dose medication -Monitor Bicarb -consult Dr. Main, appreciate recommendations. #Hyperkalemia, resolved -Related to ESRD -Potassium was 5.5 Plan: -IV insulin 5 units given x 1 with amp of D50 100 mL -Breathing treatments given x 1 #Hypertension #Hypertensive Urgency, resolved Patient's home medication of Hydralazine 100 mg TID. Start at a lower dose of hydralazine 50 mg TID. This morning patient experience hypertensive urgency, likely secondary to acute bleeding for site of temporary tunnel catheter. Added Lisinopril and Hydralazine. Plan -We restarted lisinopril 20 mg, continue hydralazine 100 mg 3 times daily and Coreg 25 twice daily -Hydralazine 10 mg IV PRN, for systolic BP >180 or diastolic BP >110. #Diabetes Mellitus Type 2 Insulin dependent Previous A1c 6.2% on 01/2024 with a glucose on admission of 154. A1c 6.4% (04/05/2024). Home medication of Trulicity (dulaglutide) subq weekly, consider holding with renal impairment and Glargine. plan: -Sliding scale -Order Free Style Lurdes 3 & [place] upon discharge -Holding Trulicity home medication -Monitor glucose in the AM #Hyperlipedimia Continue home medication of Atorvastatin 20 mg HS oral. Diagnostics: ASCVD 15.3% of cardiovascular event in the next 10 yrs. Moderate to high intensity statin recommended as risk >7.5% Plan -Atorvastatin 20 mg HS (moderate) #Normocytic Anemia, stable Patient has an extensive history of normocytic anemia likely secondary to chronic inflammation given history of CKD and diabetes mellitus vs Microcytic Anemia secondary to chronic inflammation given low iron level, low TIBC, and high ferritin on iron panel. Likely combination of both. Diagnostics: Hgb 9.1 and Hct 30.2 MCV 88 on admission Ferritin elevated Iron level low and low TIBIC Plan: -no acute intervention planned. -Treat underlying cause, consider adding iron supplementation -consider EPO by Nephrology, EPO given on 04/08/2024 #Mild Cirrhosis with Ascites Patient stated he has a history of remote alcohol use but denied excessive use. Negative Hepatisis. Negative HIV (01/28/2024). Alcohol <3.0 Consider MASH as BMI 35.0 with history of diabetes. Plan -Consider paracentesis -Continue to monitor #Acute Blood Loss secondary to temporary tunnel catheter, resolved #Hyperkalemia, resolved. #Non-anion gap, Metabolic acidosis, Resolved. Health Maintenance: Disp: Pt is currently admitted to floors for further management of CHF exacerbation, awaiting home oxygen supply. Received permacatheter And dialysis set up for Thursday outpatient. FEN: low carb consistent, Fluid restricted 1500, and 2 gm per day DVT: compression device Code: Full code - Patient was seen and discussed with attending physician, Dr. Fay Choi, PGY 2 Attending Provider Attestation/Addendum I have examined the patient, reviewed labs and imaging findings, discussed the case with the resident(s), and reviewed entered orders. I agree with the plan of care as outlined in this note. Dr. Aponte
--- NOTE | 2024-04-11 11:19 | PC.NURSE ---
PATIENT BACK FROM IR S/P PERMANENT DIALYSIS CATHETER INSERTION, DRESSING IS CLEAN, AND INTACT, WITH SCANT BLEEDING TO SITE RIGHT CHEST WALL. PATIENT DENIES PAIN, NO S/S OF DISTRESS. CONTINUE TO MONITOR.
[2024-04-11] MEDS: SEVELAMER CARBONATE 800 MG TABLET PO ×2 (11:26→16:43)
--- NOTE | 2024-04-11 13:13 | PC.SS ---
Addendum entered by Thuy Garcia 04/11/24 15:21: SS follow up note; [facility] will Deliver 02 once Patient's insurance approves auth. SS contacted [facility] and spoke to Lorri, she provided SS with Fax number to provide to [facility] to expedite the request. SS sent [facility] the [place] fax number. Patient pending 02 delivery, SS unaware of delivery time. SS updated DR. Choi as well as patient's nurse Heather. Addendum entered by Thuy Garcia 04/11/24 14:50: SS was contacted by patient's nurse, Heather and she informed SS that patient will be needing home 02. SS submitted 02 inquiry through [employer] platform. Original Note: SS follow up note; ?MWF shift 4 schedule starting 04/13/24 with an arrival at 2:00pm for an on-going 3:45pm chair. SS met with patient and provided chair time.
--- NOTE | 2024-04-11 14:23 | ESDS_ITS ---
Planned Discharge Date 04/11/24 DS: Providers Provider Date of admission: 04/04/24 17:22 Primary care physician: Vik Lopez MD Admitting Provider: Win Amaro MD Attending Provider on Admission: Kenny Aponte MD Consults: 04/04/24 17:39 Consult to Nephrology Routine Comment: Consulting Provider: Regan Main 04/04/24 17:45 Referral Registered Dietitian Routine Comment: 04/04/24 17:47 Referral Wound Care Routine Comment: has a healing wound on right lower dorsal foot s/p 04/04/24 19:57 [facility] Referral - Nutrition Routine Comment: Positive screening for nutrition needs. [facility] Referral - Transportation Routine Comment: Positive screening for transportation needs. 04/05/24 13:38 Referral OP Wound Healing Dept Routine Comment: 04/07/24 08:00 Referral Discharge Planning Stat Comment: op dialysis at [facility] under my care 04/09/24 07:32 Referral Physical Therapy Routine Comment: Physician Instructions: 04/11/24 08:00 Referral Discharge Planning Stat Comment: op dialysis at [facility] Attending Provider on DC: Viviane Cantu MD Discharging Provider: Viviane Cantu MD DS: Diagnosis Problem List Completed Was Problem List Reviewed/Reconciled?: Yes Hospital Course Hospital Course Hospital course: Summary: Patient is a 63-year-old male with a past medical history of hypertension, hyperlipidemia, diabetes mellitus type 2 insulin-dependent on trulicity 1.5 mg subq once a week, chronic kidney disease anasarca, HFpEF 55 to 50% (04/04/2024) admitted for acute hypoxic respiratory failure, secondary to acute on chronic CHF exacerbation w/ ANASARCA. Bonilla was started on dialysis with a schedule of MWF. ER Course: In the emergency room, patient presented with hypertension of 174/91, increased work of breathing respiratory rate of 31 requiring oxygen on 4 L saturating at 97%. CMP showed sodium of 140 (normal), hyperkalemia 6.5 (high), elevated chloride 113, low bicarb 18.2, renal panel panel showing elevated BUN, elevated creatinine 2. 7 and GFR 26 with a history of chronic kidney disease. Magnesium elevated 2.7. Troponin within normal limits BNP 1117. Per chart review previous cocci negative. Previous hepatitis C negative. Previous HIV negative. Chest x-ray showed mild heart failure, right base pneumonia, enlarged right moderate left pleural effusion. Medication given in the emergency room albuterol breathing treatment, calcium gluconate, insulin 5 units regular, dextrose, Bumex 2 mg IV push and sodium chloride intranasal x 1 Hospitalization: In the hospital, patient was started on Bumex 2 mg IV push daily as patient was fluid overloaded on admission with a left pleural effusio and mild to moderate CHF as noted on CT. Anasarca was noted on physical exam extending from lower extremities and moving all the way up to his abdomen. Improved upon discharge with dialysis and diuretics. Patient eventually was restarted on his home medication of carvedilol 2 mg twice daily as CHF improved. Patient desats to low 80s and will require home oxygen. Patient would also benefit from a sleep study as there is likely underlying condition of obstructive sleep apnea. Patient has new onset of ESRD started on hemodialysis with a permacath, likely from secondary to CKD from diabetic neuropathy. Patient struggled with his potassium as it was persistently elevated and was started on Veltassa as a home medication. Patient was restarted on his home medication as he arrived with hypertensive urgency. Patient was started on hydralazine 100 mg 3 times daily and added lisinopril 40 mg. Patient is a diabetic mellitus type 2 who is on Trulicity and A1c on admission of 6 point percent. Patient will be going home with [employer] and the reader upon discharge. Patient a ASCVD score of 15.3% of cardiovascular event in the next 10 years recommended to start moderate to high intensity statins. Patient started on atorvastatin 20 mg at bedtime. Normocytic anemia, stable noted on labs likely secondary to chronic inflammation given history of CKD and diabetes mellitus. Please follow-up outpatient given EPO during dialysis. Instructions: -Please continue Atorvastatin 20 mg oral once a night for high cholestrol -Please continue Hydralazine 100 mg three times a day for high blood pressure -Please continue Lisinopril 40 mg once a day for high blood pressure -Please continue Bumetanide 2 mg oral once a day to reduce water retention -Please continue Carvedilol 25 mg twice a day for your heart failure -Please weight your self every day and monitor any change greater than 2 lbs within 1-2 days and update your primary care provider in case you need to go up on your Bemetanide. -Please limit your water intake to 1800 mg per day -Please Continue Tulicity once a week as prescribed -Please monitor your blood sugars at home, keep morning glucose between 80-130 -Please keep blood sugar with meals under 200 -Start Veltassa, to keep potassium levels within normal limits. -You will start dialysis scheduled Thursday, Thursday, Thursday. First outpatient scheduled on 04/13/2024 with arrival at 2:00 PM -Please follow up with your primary care provider within one week of discharge -If your symptoms worsen,please seek immediate medical attention and return to your nearest emergency room -If you do not have a primary care provider, you may follow up at the [facility] at [address], [place] [address], -Disposition: home w/ oxygen #Acute hypoxic respiratory failure, improved #CHF exacerbation, resolved. #Congestive Heart Failure HFpEF 55% to 50% (03/2024) #Pleural Effusion #ANASARCA, improved. #New onset ESRD hemodialysis #S/P Perm Cath 04/11/2024 #s/p tunnel catheter on 04/06/2024 & now removed on 04/11/2024 #CKD stage IV secondary to Diabetic Nephropathy #Hypertension #Hypertensive Urgency, resolved #Diabetes Mellitus Type 2 #Hyperlipedimia #Normocytic Anemia, stable #Acute Blood Loss secondary to temporary tunnel catheter, resolved #Hyperkalemia, resolved. #Non-anion gap, Metabolic acidosis, Resolved. - The patient's plan was discussed with attending Dr. Aponte and senior residents Dr. Eleanor Cantu MD PGY1 Internal Medicine Time Spent with Patient Time attestation: Total time spent providing and/or coordinating discharge services: at least 35 minutes of care and coordination Exam Vital Signs Temp Pulse Resp BP Pulse Ox O2 Del Method O2 Flow Rate 97.4 F 75 18 175/100 H 99 Nasal Cannula 2 04/11/24 13:54 04/11/24 14:16 04/11/24 13:54 04/11/24 14:16 04/11/24 12:40 04/11/24 12:00 04/11/24 12:40 Narrative Exam General Appearance: Alert & Oriented X3, well-nourished male who is lying in bed in no acute distress HEENT: Skull symmetrical and atraumatic. Conjunctivae pin and moist. Pupils equal, round, reactive to light and accommodation (PERRL). External ear without lesion or discharge. Straight, nares patient, mucosa pink, no discharge. No thyroid nodule appreciated. No cervical lymphadenopathy. Cardio: Normal Rate and Rhythm with S1 and S2 heart sounds. No murmurs or extra heart sounds auscultated. No bruits on carotid auscultation. Peripheral edema +2 Lungs: Symmetric with good expansion. Chest and back non-tender. Breath sounds vesicular improved work of breathing, with crackles still present. Abdomen: Non-tender, Non-distended, Normal Reactive Bowel Sounds Neuro: Alert, cooperative, oriented to person, place, and time. Speech clear. CN grossly intact. Upper motor strength 5/5 and Lower motor strength 5/5. Sensation intact. Discharge Plan Plan Patient Disposition: HOME (Self Care) Patient condition on transfer: Stable Care Plan Goals: Instructions: -Please continue Atorvastatin 20 mg oral once a night for high cholestrol -Please continue Hydralazine 100 mg three times a day for high blood pressure -Please continue Lisinopril 40 mg once a day for high blood pressure -Please continue Bumetanide 2 mg oral once a day to reduce water retention -Please continue Carvedilol 25 mg twice a day for your heart failure -Please weight your self every day and monitor any change greater than 2 lbs within 1-2 days and update your primary care provider in case you need to go up on your Bemetanide. -Please limit your water intake to 1800 mg per day -Please Continue Tulicity once a week as prescribed -Please monitor your blood sugars at home, keep morning glucose between 80-130 -Please keep blood sugar with meals under 200 -Start Veltassa, to keep potassium levels within normal limits. -You will start dialysis scheduled Thursday, Thursday, Thursday. First outpatient scheduled on 04/13/2024 with arrival at 2:00 PM -Please follow up with your primary care provider within one week of discharge -If your symptoms worsen,please seek immediate medical attention and return to your nearest emergency room -If you do not have a primary care provider, you may follow up at the [facility] at [address], [place] [address], -Disposition: home w/ oxygen Prescriptions/Referrals Prescriptions/Med Rec: New atorvastatin 20 mg Tablet 20 mg PO HS 30 Days Qty: 30 0RF hydralazine 100 mg tablet 100 mg PO TID Qty: 30 0RF polyethylene glycol 3350 [HealthyLax] 17 gram Powder In Packet 17 g PO QDAY PRN (Reason: constipation) Qty: 30 0RF (DME) FreeStyle Lurdes 3 Plus Sensor Device See Rx Instructions .Route Qty: 1 0RF Rx Instructions: As directed (DME) FreeStyle Lurdes 3 [place] Misc See Rx Instructions .Route Qty: 1 0RF Rx Instructions: As directed lisinopril 40 mg tablet 40 mg PO QDAY Qty: 30 0RF Continued Trulicity 1.5 mg/0.5 mL pen injector 1.5 mg SUBCUT QWEEK Patient Comments: INJECT 1 PEN (1.5 MG) SUBCUTANEOUSLY ONCE A WEEK 30 DAYS hydrocodone-acetaminophen 10-300 mg tablet 1 tab PO Q8H MDD 3 PRN (Reason: pain) Qty: 15 0RF bumetanide 2 mg tablet 2 mg PO QDAY Qty: 30 0RF carvedilol 25 mg tablet 25 mg PO BID Qty: 60 0RF Rx Instructions: must administer with a meal/food Discontinued clonidine HCl 0.1 mg Tablet 0.1 mg PO BID atorvastatin 20 mg Tablet 40 mg PO HS Qty: 60 0RF hydralazine 25 mg Tablet 100 mg PO Q8H Qty: 90 0RF Referrals: Vik Lopez MD [Primary Care Provider] - Regan Main MD [Physician] - Patient/Caregiver Discharge Instructions Education Materials: Thoracentesis Dc Print Language: Mauritian Stand Alone Forms: Audrey Award Info., Patient Portal Info Letter Discharge Order Discharge Orders: Discharge (Routine); Ordered 04/11/24 Ordered By: Robert Choi Quality Discharge Quality Measures VTE prophylaxis Attestestation Attestation I have examined the patient, reviewed labs and imaging findings, discussed the case with the resident(s), and reviewed entered orders. I agree with the plan of care as outlined in this note. Dr. Aponte
--- NOTE | 2024-04-11 14:37 | PC.PT ---
PT assessed the patient's O2 needs yesterday 04/10/24 during the PT evaluation. Patient desaturated to 86% while ambulating on room air, so PT placed him on 2L O2 and he returned to 94% during ambulation. RN notified.
--- NOTE | 2024-04-11 15:16 | PC.NURSE ---
Tried decrease time on machine, as only scheduled for 3 ours.
[2024-04-11] MEDS: EPOETIN ALFA-EPBX INJ 10,000 UNIT/ML VIAL (ESRD) 10000 UNIT SC (15:46)
[2024-04-11] MEDS: HEPARIN SOD INJ 1000 UNIT/ML VIAL 10 ML 4100 UNIT INDWELLCAT (16:18)
[2024-04-11] MEDS: PATIROMER CALCIUM 8.4 GM PACKET (NON-FORM) PO (16:43)
[2024-04-11] MEDS: carVEDILOL 12.5 MG TABLET 25 MG PO (16:43)
[2024-04-11] MEDS: ATORVASTATIN CALCIUM 20 MG TABLET PO (20:27)
[2024-04-11] MEDS: INSULIN LISPRO (AdmeLOG) 1 UNIT/0.01 ML UNIT SC (21:10)
[2024-04-12] VITALS: PULSE 70
[2024-04-12 06:00] VITALS: BP 156/75; PULSE 78
[2024-04-12] MEDS: hydrALAZINE HCL 25 MG TABLET 100 MG PO (06:00)
[2024-04-12 08:00] VITALS: BP 141/78; PULSE 77; RESP 18; TEMP 36.4; O2SAT 94
[2024-04-12] MEDS: SEVELAMER CARBONATE 800 MG TABLET PO ×2 (08:30→10:03)
--- NOTE | 2024-04-12 09:02 | PC.NURSE ---
[employer] downtime occurred on 04/12/24 from 0100 to 0700.
--- NOTE | 2024-04-12 09:11 | ESDS_ITS ---
Planned Discharge Date 04/12/24 DS: Providers Provider Date of admission: 04/04/24 17:22 Primary care physician: Vik Lopez MD Admitting Provider: Win Amaro MD Attending Provider on Admission: Kenny Aponte MD Consults: 04/04/24 17:39 Consult to Nephrology Routine Comment: Consulting Provider: Regan Main 04/04/24 17:45 Referral Registered Dietitian Routine Comment: 04/04/24 17:47 Referral Wound Care Routine Comment: has a healing wound on right lower dorsal foot s/p 04/04/24 19:57 Health [facility]ity Referral - Nutrition Routine Comment: Positive screening for nutrition needs. [facility] Referral - Transportation Routine Comment: Positive screening for transportation needs. 04/05/24 13:38 Referral OP Wound Healing Dept Routine Comment: 04/07/24 08:00 Referral Discharge Planning Stat Comment: op dialysis at [facility] under my care 04/09/24 07:32 Referral Physical Therapy Routine Comment: Physician Instructions: 04/11/24 08:00 Referral Discharge Planning Stat Comment: op dialysis at [facility] Attending Provider on DC: Kenny Aponte MD Discharging Provider: Kenny Aponte MD DS: Diagnosis Problem List Completed Was Problem List Reviewed/Reconciled?: Yes Hospital Course Hospital Course Hospital course: Patient is a 63-year-old male with a past medical history of hypertension, hype rlipidemia, diabetes mellitus type 2 insulin-dependent on trulicity 1.5 mg subq once a week, chronic kidney disease anasarca, HFpEF 55 to 50% (04/04/2024) admitted for acute hypoxic respiratory failure, secondary to acute on chronic CHF exacerbation w/ ANASARCA. Bonilla was started on dialysis with a schedule of MWF. ER Course: In the emergency room, patient presented with hypertension of 174/91, increased work of breathing respiratory rate of 31 requiring oxygen on 4 L saturating at 97%. CMP showed sodium of 140 (normal), hyperkalemia 6.5 (high), elevated chloride 113, low bicarb 18.2, renal panel panel showing elevated BUN, elevated creatinine 2. 7 and GFR 26 with a history of chronic kidney disease. Magnesium elevated 2.7. Troponin within normal limits BNP 1117. Per chart review p revious cocci negative. Previous hepatitis C negative. Previous HIV negative. Chest x-ray showed mild heart failure, right base pneumonia, enlarged right moderate left pleural effusion. Medication given in the emergency room albuterol breathing treatment, calcium gluconate, insulin 5 units regular, dextrose, Bumex 2 mg IV push and sodium chloride intranasal x 1 Hospitalization: In the hospital, patient was started on Bumex 2 mg IV push daily as patient was fluid overloaded on admission with a left pleural effusio and mild to moderate CHF as noted on CT. Anasarca was noted on physical exam extending from lower extremities and moving all the way up to his abdomen. Improved upon discharge with dialysis and diuretics. Patient eventually was restarted on his home medication of carvedilol 2 mg twice daily as CHF improved. Patient desats to low 80s and will require home oxygen. Patient would also benefit from a sleep study as there is likely underlying condition of obstructive sleep apnea. Patient has new onset of ESRD started on hemodialysis with a permacath, likely from secondary to CKD from diabetic neuropathy. Patient struggled with his potassium as it was persistently elevated and was started on Veltassa as a home medication. Patient was restarted on his home medication as he arrived with hypertensive urgency. Patient was started on hydralazine 100 mg 3 times daily and added lisinopril 40 mg. Patient is a diabetic mellitus type 2 who is on Trulicity and A1c on admission of 6 point percent. Patient will be going home with [employer] 3 and the reader upon discharge. Patient a ASCVD score of 15.3% of cardiovascular event in the next 10 years recommended to start moderate to high intensity statins. Patient started on atorvastatin 20 mg at bedtime. Normocytic anemia, stable noted on labs likely secondary to chronic inflammation given history of CKD and diabetes mellitus. Please follow-up outpatient given EPO during dialysis. Instructions: -Please continue Atorvastatin 20 mg oral once a night for high cholestrol -Please continue Hydralazine 100 mg three times a day for high blood pressure -Please continue Lisinopril 40 mg once a day for high blood pressure -Please continue Bumetanide 2 mg oral once a day to reduce water retention -Please continue Carvedilol 25 mg twice a day for your heart failure -Please weight your self every day and monitor any change greater than 2 lbs within 1-2 days and update your primary care provider in case you need to go up on your Bemetanide. -Please limit your water intake to 1800 mg per day -Please Continue Tulicity once a week as prescribed -Please monitor your blood sugars at home, keep morning glucose between 80-130 -Please keep blood sugar with meals under 200 -Start Veltassa, to keep potassium levels within normal limits. -You will start dialysis scheduled Thursday, Thursday, Thursday. First outpatient scheduled on 04/13/2024 with arrival at 2:00 PM -Please follow up with your primary care provider within one week of discharge -If your symptoms worsen,please seek immediate medical attention and return to your nearest emergency room -If you do not have a primary care provider, you may follow up at the [facility] at [address], [place] [address], -Disposition: home w/ oxygen #Acute hypoxic respiratory failure, improved #CHF exacerbation, resolved. #Congestive Heart Failure HFpEF 55% to 50% (03/2024) #Pleural Effusion #ANASARCA, improved. #New onset ESRD hemodialysis #S/P Perm Cath 04/11/2024 #s/p tunnel catheter on 04/06/2024 & now removed on 04/11/2024 #CKD stage IV secondary to Diabetic Nephropathy #Hypertension #Hypertensive Urgency, resolved #Diabetes Mellitus Type 2 #Hyperlipedimia #Normocytic Anemia, stable #Acute Blood Loss secondary to temporary tunnel catheter, resolved #Hyperkalemia, resolved. #Non-anion gap, Metabolic acidosis, Resolved. - The patient's plan was discussed with attending Dr. Fay Choi MD,PGY2 Time Spent with Patient Time attestation: Total time spent providing and/or coordinating discharge services: Exam Vital Signs Temp Pulse Resp BP Pulse Ox O2 Del Method O2 Flow Rate 97.2 F 70 17 131/63 H 95 Nasal Cannula 2 04/11/24 23:52 04/12/24 00:00 04/11/24 23:52 04/11/24 23:52 04/11/24 23:52 04/11/24 17:30 04/11/24 23:22 Narrative Exam General Appearance: Alert & Oriented X3, well-nourished male who is lying in bed in no acute distress HEENT: Skull symmetrical and atraumatic. Conjunctivae pin and moist. Pupils equal, round, reactive to light and accommodation (PERRL). External ear without lesion or discharge. Straight, nares patient, mucosa pink, no discharge. No thyroid nodule appreciated. No cervical lymphadenopathy. Cardio: Normal Rate and Rhythm with S1 and S2 heart sounds. No murmurs or extra heart sounds auscultated. No bruits on carotid auscultation. Peripheral edema +2 Lungs: Symmetric with good expansion. Chest and back non-tender. Breath sounds vesicular improved work of breathing, with crackles still present. Abdomen: Non-tender, Non-distended, Normal Reactive Bowel Sounds Neuro: Alert, cooperative, oriented to person, place, and time. Speech clear. CN grossly intact. Upper motor strength 5/5 and Lower motor strength 5/5. Sensation intact. Discharge Plan Plan Patient Disposition: HOME (Self Care) Patient condition on transfer: Stable Care Plan Goals: Instrucciones: -Contin?e con Atorvastatina 20 mg por v?a oral dennis vez por noche para el colesterol alto. -Contin?e con hidralazina 100 mg lashawn veces al d?a para la presi?n arterial tye. -Contin?e con Lisinopril 40 mg dennis vez al d?a para la presi?n arterial tye. -Contin?e con Bumetanida 2 mg por v?a oral dennis vez al d?a para reducir la retenci?n de agua. -Contin?e con Carvedilol 25 mg dos veces al d?a para aguilera insuficiencia card?shruthi. -P?sese todos los d?as y controle cualquier cambio de m?s de 2 libras dentro de 1 a 2 d?as y actualice a aguilera proveedor de atenci?n primaria en javed de que nec esite aumentar aguilera bemetanida. -Por favor limite aguilera consumo de agua a 1800 mg por d?a. -Contin?e con Tulicity dennis vez a la semana seg?n lo prescrito. -Controle sue niveles de az?car en la catrachita en casa, mantenga la glucosa de la ma?clarita entre 80 y 130. -Mantenga el nivel de az?car en la catrachita con las comidas por debajo de 200. -Iniciar Veltassa, para mantener los niveles de potasio dentro de l?mites normales. -Iniciar?s di?lisis programada lunes, mi?rcoles, viernes. Primer paciente ambulatorio programado el 04/13/2024 with arrival at 2:00 PM -Lonnie un seguimiento con aguilera proveedor de atenci?n primaria dentro de dennis semana despu?s del tye. -Si sue s?ntomas empeoran, busque atenci?n m?dica inmediata y regrese a la scott de emergencias m?s cercana. -Si no cuenta con un proveedor de atenci?n primaria, podr? realizar seguimiento en el [facility] de [place] ac[place]?thais en [address], [place] [address], -Disposition: home w/ oxygen Prescriptions/Referrals Prescriptions/Med Rec: New atorvastatin 20 mg Tablet 20 mg PO HS 30 Days Qty: 30 0RF hydralazine 100 mg tablet 100 mg PO TID Qty: 30 0RF polyethylene glycol 3350 [HealthyLax] 17 gram Powder In Packet 17 g PO QDAY PRN (Reason: constipation) Qty: 30 0RF (DME) FreeStyle Lurdes 3 Plus Sensor Device See Rx Instructions .Route Qty: 1 0RF Rx Instructions: As directed (DME) FreeStyle Lurdes 3 [place] Misc See Rx Instructions .Route Qty: 1 0RF Rx Instructions: As directed lisinopril 40 mg tablet 40 mg PO QDAY Qty: 30 0RF Continued Trulicity 1.5 mg/0.5 mL pen injector 1.5 mg SUBCUT QWEEK Patient Comments: INJECT 1 PEN (1.5 MG) SUBCUTANEOUSLY ONCE A WEEK 30 DAYS hydrocodone-acetaminophen 10-300 mg tablet 1 tab PO Q8H MDD 3 PRN (Reason: pain) Qty: 15 0RF bumetanide 2 mg tablet 2 mg PO QDAY Qty: 30 0RF carvedilol 25 mg tablet 25 mg PO BID Qty: 60 0RF Rx Instructions: must administer with a meal/food Discontinued clonidine HCl 0.1 mg Tablet 0.1 mg PO BID atorvastatin 20 mg Tablet 40 mg PO HS Qty: 60 0RF hydralazine 25 mg Tablet 100 mg PO Q8H Qty: 90 0RF Referrals: Vik Lopez MD [Primary Care Provider] - Regan Main MD [Physician] - Patient/Caregiver Discharge Instructions Education Materials: Thoracentesis Dc Print Language: German Stand Alone Forms: Audrey Award Info., Patient Portal Info Letter Discharge Order Discharge Orders: Discharge (Routine); Ordered 04/12/24 Ordered By: Robert Choi Quality Discharge Quality Measures VTE prophylaxis MD Attestestation MD Attestation I have examined the patient, reviewed labs and imaging findings, discussed the case with the resident(s), and reviewed entered orders. I agree with the plan of care as outlined in this note. Dr. Aponte
--- NOTE | 2024-04-12 09:51 | ESPR_ITS ---
Documentation for date of: 04/12/24 Subjective Subjective Interval history: Colton Sandoval is a 63-year-old male with a PMHx of HTN, HLD, insulin-dependent T2DM, HFpEF (EF 50-55% on 01/2024), and CKD stage IV presented on 04/04 for progressive dyspnea. Symptoms started three weeks ago with associated bilateral lower extremity edema, orthopnea, and paroxysmal nocturnal dyspnea. States that he sleeps with three pillows at night. Denies muscle pain, weakness, paresthesias, palpitations. Reports being compliant with his medications and follows-up with [facility]. Of note, patient admitted on 01/2024 for acute decompensated HF exacerbation with component of sepsis secondary to pneumonia and states that he does not follow-up with a environmental inspector outpatient. In ED, BP 170/86, RR 31, on 4 L NC saturating 97%. Labs significant for hemoglobin 9.8 (BL 7.5), K 6.5, HCO3 18.2, BUN 54, Cr 2.7 (at BL), GFR 26 BNP 1100, troponin negative. CT C/A/P: Mild/moderate CHF, pneumonia on the right base, large right/moderate left effusions, cirrhosis, mild ascites, severe anasarca. EKG without peaked T waves, prolonged QRS complexes, or flattened P waves. Given calcium gluconate, albuterol and insulin + dextrose in ED, with repeat K decreasing to 6.2 (from 6.5). Also given 2 mg IV bumex. Admitted for management of AHRF secondary to decompensated CHF exacerbation. Nephrology consulted for hyperkalemia. 04/05: Seen and examined in telemetry. States that he is still short of breath but is not worse compared to yesterday. He is making good urine with 1 L urine output since being admitted yesterday, currently on 2 mg IV bumex BID. K downtrending from 6.5 -> 6.2 -> 5.8. Since ED, has received Kayexalate x1, and another round of albuterol/insulin + dextrose/calcium gluconate. 04/06: Seen and examined in telemetry. Today he does not have any complaints. Spoke to him regarding need for temporary dialysis and agrees to plan. Order placed for TDC placement and made NPO. Also placed orders for PPD, HIV and hepatitis panels and spoke to social secretary to inform of need for outpatient dialysis chair. K mildly increased from 5.6 to 5.7 while on IV bumex. Continues to have good urine output of 1.9 L in 24 hours. 04/07: Seen and examined in telemetry. S/p placement of temporary dialysis catheter on 04/06. Noted to have bleeding at IJ catheter site around 2300 and epinephrine-soaked gauze was placed with applied pressure with mild bleeding afterwards. Attempted to check hgb but patient refused labs at that time and also refused morning labs. Upon evaluation this morning, gauze was soaked in blood but not actively bleeding so was replaced with SurgiSeal and ordered desmopressin 20 mcg x1. Repeat CXR unremarkable, without signs of pneumothorax. Will plan for dialysis later today. 04/08: Seen and examined while undergoing dialysis, tolerating well. Underwent first session yesterday and tolerated well. IJ catheter site examined with minimal bleeding noted. Hemoglobin stable at 8.4. Sodium and potassium within normal limits, BUN stable at 61, creatinine stable at 2.6 prior to dialysis. 04/10: Patient so far received 3 dialysis treatments and is feeling much better. Denies any chest pain. Feeling much stronger. Edema seems to be improving. Labs, medications reviewed. Right IJ PermCath tomorrow. N.p.o. after midnight. 04/11: Patient currently seen in telemetry. Scheduled for dialysis catheter and her dialysis today. Once outpatient dialysis arrangements are made he can be discharged. Edema markedly improved. Still with shortness of breath. On p.o. Bumex. 04/12: Patient seen and examined in telemetry. No acute overnight events and patient does not have any complaints. Status post placement of permanent TDC and tolerated procedure well. Outpatient dialysis arranged with M/W/F regimen and slated to start on 04/13. Exam Vital Signs Temp Pulse Resp BP Pulse Ox O2 Del Method O2 Flow Rate 97.2 F 78 17 156/75 H 95 Nasal Cannula 2 04/11/24 23:52 04/12/24 06:00 04/11/24 23:52 04/12/24 06:00 04/11/24 23:52 04/11/24 17:30 04/11/24 23:22 Narrative Exam General: AOx3, no acute distress, able to speak full sentences on 2 L NC HEENT: NC/AT, mucous membranes moist, bilateral sclera anicteric Cardiovascular: regular rate and rhythm, S1/S2 present, no murmurs appreciated Pulmonary: mild bibasilar crackles Abdominal: soft, non-tender, non-distended, no rebound/guarding, normal bowel sounds present Musculoskeletal: bilateral lower extremity pitting edema up to knees Objective Labs 04/11/24 08:59 04/11/24 08:59 Labs: Laboratory Results - last 24 hr 04/11/24 08:59 WBC 6.4 RBC 3.33 L Hgb 8.7 L Hct 29.0 L MCV 87 MCH 26.1 MCHC 30.0 L RDW Std Deviation 56.8 H Plt Count 195 Neut % (Auto) 60 Lymph % (Auto) 21 [place] % (Auto) 13 H Eos % (Auto) 6 Baso % (Auto) 0 Neut # (Auto) 3.8 Lymph # (Auto) 1.4 [place] # (Auto) 0.8 Eos # (Auto) 0.4 Baso # (Auto) 0.0 Immature Gran # (Auto) 0.02 H Absolute Nucleated RBC 0.00 Immature Gran % 0 Nucleated RBC % 0 Blood Type O Positive Antibody Screen NEGATIVE Crossmatch See Detail Blood Bank Wristband ID Yes Quality Measures Quality Measures VTE prophylaxis Assessment & Plan Assessment Current Active Medications: Generic Name Dose Route Start Last Admin Trade Name Freq PRN Reason Stop Dose Admin Acetaminophen 650 mg 04/04/24 17:24 Acetaminophen 325 Mg Tablet PO 05/04/24 17:23 Q6H PRN Mild Pain 1-3 or Fever >100.4 Atorvastatin Calcium 20 mg 04/04/24 21:00 04/11/24 20:27 Atorvastatin Calcium 20 Mg Tablet PO 05/04/24 20:59 20 mg HS ANAMARIA Administration Bumetanide 2 mg 04/10/24 09:00 04/11/24 08:59 Bumetanide 0.5 Mg Tablet PO 05/10/24 08:59 Not Given QDAY ANAMARIA Carvedilol 25 mg 04/09/24 10:00 04/11/24 16:43 Carvedilol 12.5 Mg Tablet PO 05/09/24 09:59 25 mg BIDWM ANAMARIA Administration Dextrose 25 ml 04/06/24 08:40 Dextrose 50%-Water Inj 50 Ml Syringe IV 05/06/24 08:39 Q15MIN PRN BG 50-70 responsive npo pt Dextrose 50 ml 04/06/24 08:40 Dextrose 50%-Water Inj 50 Ml Syringe IV 05/06/24 08:39 Q15MIN PRN BG <50 OR BG <70 & pt unresponsive Glucagon 1 mg 04/06/24 08:40 Glucagon Inj 1 Mg Vial IM Q15MIN PRN BG <70, and no IV access Heparin Sodium (Porcine) 4,100 unit 04/11/24 15:47 04/11/24 16:18 Heparin Sod Inj 1000 Unit/Ml Vial 10 Ml INDWELLCAT 04/25/24 15:46 4,100 unit PRN PRN Administration DIALYSIS Hydralazine HCl 10 mg 04/04/24 17:35 04/08/24 19:28 Hydralazine Inj 20 Mg/Ml Vial IV 05/04/24 17:34 10 mg Q4HR PRN Administration Hypertension Hydralazine HCl 100 mg 04/08/24 06:00 04/12/24 06:00 Hydralazine Hcl 25 Mg Tablet PO 05/08/24 05:59 100 mg TID ANAMARIA Administration Albumin Human 25 gm in 100 mls @ 100 mls/min 04/07/24 13:30 Albuminar-25 Ivpb IV PRN PRN DIALYSIS Insulin Human Lispro 0 unit 04/04/24 21:00 04/11/24 21:10 Insulin Lispro (Admelog) 1 Unit/0.01 Ml Unit SC 05/04/24 20:59 2 unit ACHS ANAMARIA Administration Protocol Lisinopril 40 mg 04/11/24 09:00 04/11/24 08:59 Lisinopril 20 Mg Tablet PO 05/11/24 08:59 Not Given QDAY ANAMARIA Ondansetron HCl 4 mg 04/04/24 17:24 Ondansetron Inj 2 Mg/Ml Inj 2 Ml IV 05/04/24 17:23 Q6H PRN NAUSEA OR VOMITING Protocol Patiromer 8.4 gm 04/11/24 14:30 04/11/24 16:43 Patiromer Calcium 8.4 Gm Packet (Non-Form) PO 05/11/24 14:29 8.4 gm QDAY ANAMARIA Administration Polyethylene Glycol 17 gm 04/07/24 10:30 04/11/24 08:14 Polyethylene Glycol 17 Gm Packet PO 05/07/24 10:29 Not Given QDAY ANAMARIA Sennosides 1 tab 04/08/24 10:30 04/11/24 08:15 Senna Tablet PO 05/08/24 10:29 Not Given QDAY ANAMARIA Protocol Sevelamer Carbonate 800 mg 04/06/24 12:00 04/11/24 16:43 Sevelamer Carbonate 800 Mg Tablet PO 05/06/24 11:59 800 mg TIDWM ANAMARIA Administration Sodium Chloride 3 ml 04/04/24 16:42 Sodium Chloride Rt Silvina 0.9% 3 Ml Nebu INH 05/04/24 16:41 PRN PRN SOLN Plan Colton Sandoval is a 63-year-old male with a PMHx of HTN, HLD, insulin-dependent T2DM, HFpEF (EF 50-55% on 01/2024), and CKD stage IV who is admitted for management of acute decompensated CHF exacerbation. Nephrology consulted for hyperkalemia. #CKD stage IV #Diabetic nephropathy vs nephrotic syndrome - 3+ protein on UA, protein- creatinine ratio ordered #Cardiorenal syndrome #Normocytic anemia, likely secondary to CKD Patient with recurrent episodes of congestive heart failure secondary to diabetic nephropathy (cardiorenal syndrome). Diuretic dependent/resistant with significant anasarca, recurrent hyperkalemia. Had a long conversation with patient regarding the need for dialysis to prevent recurrent hospitalizations and to maintain euvolemic state. Patient agreed for dialysis if indicated. S/p placement of permanent TDC on 04/11 with outpatient dialysis now arranged. Thus, stable for discharge from nephrology perspective. ? Follow-up outpatient for hemodialysis on // with first session to be on 04/13 #Acute decompensated CHF exacerbation #HFpEF (EF 50-55% on 01/2024) #Type 2 diabetes mellitus, insulin-dependent #Hypertension #Hyperlipidemia ? Continue management per primary team ----- Plan discussed with attending physician Dr. Etelvina Lee MD PGY-1 Internal Medicine Attending Provider Attestation/Addendum Patient seen and examined with resident physician Dr. Bowser. Note reviewed, agree with findings and recommendations. dc today
[2024-04-12 10:01] VITALS: BP 141/78; PULSE 77
[2024-04-12] MEDS: BUMETANIDE 0.5 MG TABLET 2 MG PO (10:01)
[2024-04-12 10:02] VITALS: BP 141/78; PULSE 77
[2024-04-12] MEDS: carVEDILOL 12.5 MG TABLET 25 MG PO (10:02)
[2024-04-12] MEDS: Lisinopril 20 MG TABLET 40 MG PO (10:02)
[2024-04-12] MEDS: SENNA TABLET 1 TAB PO (10:03)
[2024-04-12] MEDS: POLYETHYLENE GLYCOL 17 GM PACKET PO (10:03)
[2024-04-12] MEDS: PATIROMER CALCIUM 8.4 GM PACKET (NON-FORM) PO (10:05)
[2024-04-12 12:00] VITALS: BP 156/84; PULSE 67; PULSE 77; RESP 16; TEMP 36.3; O2SAT 96
[2024-04-14 06:37] LABS: Vitamin D,1,25 (OH)2,Total <8 pg/mL (18-72); Vitamin D2, 1,25 (OH)2 <8 pg/mL; Vitamin D3, 1,25 (OH)2 <8 pg/mL
== END 2024-04-12 13:15 | disposition home or self-care (01) | DRG 194 ==
LOC: SERX 17:03 → SERHOLD 18:34 → S2NX 18:59
PROVIDERS: Internal Medicine; Nurse Practitioner Primary Care; Student in an Organized Health Care Education/Training Program; Admitting Provider Student in an Organized Health Care Education/Training Program; Emergency Provider Emergency Medicine; PCP Family Medicine; Visit Provider Student in an Organized Health Care Education/Training Program
DX: I13.2 Hypertensive heart and chronic kidney disease with heart failure and with stage 5 chronic kidney disease, or end stage renal disease (principal); E11.22 Type 2 diabetes mellitus with diabetic chronic kidney disease; E87.5 Hyperkalemia; E78.5 Hyperlipidemia, unspecified; J96.01 Acute respiratory failure with hypoxia; I50.33 Acute on chronic diastolic (congestive) heart failure; D63.1 Anemia in chronic kidney disease; E11.40 Type 2 diabetes mellitus with diabetic neuropathy, unspecified; E87.4 Mixed disorder of acid-base balance; I25.10 Atherosclerotic heart disease of native coronary artery without angina pectoris; I16.0 Hypertensive urgency; K74.60 Unspecified cirrhosis of liver; K80.20 Calculus of gallbladder without cholecystitis without obstruction; N17.9 Acute kidney failure, unspecified; R18.8 Other ascites; N18.6 End stage renal disease; T82.838A Hemorrhage due to vascular prosthetic devices, implants and grafts, initial encounter; Z79.85 Long-term (current) use of injectable non-insulin antidiabetic drugs; Z79.899 Other long term (current) drug therapy; Y92.230 Patient room in hospital as the place of occurrence of the external cause; Y84.1 Kidney dialysis as the cause of abnormal reaction of the patient, or of later complication, without mention of misadventure at the time of the procedure
CPT/HCPCS: 36415; 71045; 71250; 74176; 76937; 77001; 80048; 80053; 80061; 80069; 80074; 80307; 81001; 82150; 82306; 82436; 82570; 82652; 82728; 82945; 83036; 83540; 83550; 83615; 83690; 83735; 83880; 83970; 84100; 84132; 84133; 84156; 84157; 84300; 84443; 84484; 85014; 85018; 85025; 85610; 85730; 86580; 86703; 86704; 86705; 86706; 86850; 86900; 86901; 86923; 87081; 87086; 87205; 87502; 87811; 89051; 93005; 93306; 94640; 94762; 96365; 96375; 97162; 99285; A9270; C1750; C1752; C1769; C1894; J0171; J0360; J0612; J0696; J1642; J1643; J1815; J3010; J3490; J7050; P9016; Q0139; Q5105

== ENCOUNTER 2024-09-01 10:35 | Day surgery (SDC) | payer MEDICAID, SELFPAY ==
--- NOTE | 2024-08-31 07:46 | EKG_ITS ---
[facility] Test Date: 2024-08-31 Pat Name: VALERIE BRUNSON Department: Room: - Gender: Male Disabilities Services Officer: JACOB : 1960 Requested By: Barrett Longoira Order Number: [id number] Reading MD: Barrett Longoria Measurements Intervals [place] Rate: 63 P: 13 OR: 144 QRS: -9 QRSD: 98 T: 60 QT: 417 QTc: 429 Interpretive Statements SINUS RHYTHM LEFT VENTRICULAR HYPERTROPHY AND ST-T CHANGE [VOLTAGE CRITERIA PLUS ST/T ABNORMALITY] Compared to ECG 03/15/2024 12:21:48 Left ventricular hypertrophy now present ST (T wave) deviation now present /store/S0/[id number]/[id number].pdf
[2024-08-31 08:52] LABS: Basophils % (Auto) 0 % (0-2.5); Eosinophils # (Auto) 0.5 Thou/mm3 (0.0-0.5); Eosinophils % (Auto) 4 % (0-10); Hematocrit 36.8 % (41.0-53.0); Hemoglobin 11.9 g/dL (13.5-16.0); Immature Granulocytes % (Auto) 0 % (0-0); Immature Granulocytes Auto 0.04 Thou/mm3 (0.00-0.00); Lymphocytes # (Auto) 1.8 Thou/mm3 (1.0-4.8); Lymphocytes % (Auto) 16 % (10-50); Mean Corpuscular HGB Conc 32.3 g/dl (31.0-37.0); Mean Corpuscular Hemoglobin 28.5 pg (25.0-35.0); Mean Corpuscular Volume 88 fL (80-100); Monocytes # (Auto) 1.4 Thou/mm3 (0.0-0.8); Monocytes % (Auto) 12 % (0-12); Neutrophils # (Auto) 7.6 Thou/mm3 (1.8-7.7); Neutrophils % (Auto) 67 % (37-80); Nucleated Red Blood Cell % 0 /100 WBC (0); Platelet Count 272 Thou/mm3 (140-440); RDW Standard Deviation 46.7 fL (35.1-43.9); Red Blood Count 4.17 Miln/mm3 (4.50-5.90); White Blood Count 11.3 Thou/mm3 (3.8-10.6)
[2024-08-31 09:32] LABS: Alanine Aminotransferase 13 U/L (10-49); Albumin, Serum 3.6 gm/dL (3.4-4.8); Albumin/Globulin Ratio 1.1 (1.2-2.2); Alkaline Phosphatase 189 U/L (46-116); Anion Gap 9 (7-16); Aspartate Amino Transferase 10 U/L (0-34); BUN/Creatinine Ratio 8 Ratio (12-20); Bilirubin,Total 0.5 mg/dL (0.3-1.2); Blood Urea Nitrogen 35 mg/dL (9-23); Calcium 8.4 mg/dL (8.3-10.6); Calcium (Corrected) 8.7 mg/dL (8.5-10.1); Carbon Dioxide 29.4 mMol/L (20.0-31.0); Chloride 99 mMol/L (98-107); Creatinine (Component) 4.4 mg/dL (0.6-1.3); Globulin 3.3 gm/dL (2.3-3.5); Glucose 164 mg/dL (74-106); Osmolality,Calculated 285 (275-295); Potassium 4.3 mMol/L (3.4-5.1); Sodium 137 mMol/L (136-145); Total Protein 6.9 gm/dL (5.7-8.2); eGFR 14 See Note
[2024-08-31 09:34] LABS: Partial Thromboplastin Time 29.8 Seconds (22.0-36.0)
[2024-09-01] VITALS (11 sets, daily range): BP systolic 150–197; BP diastolic 56–102; PULSE 12–66; RESP 12–15; TEMP 36.6–36.8; O2SAT 95–99; BMI 28.4
[2024-09-01 11:59] LABS: Potassium 3.5 mMol/L (3.4-5.1)
--- NOTE | 2024-09-01 13:38 | PD.SUROPNT ---
Date of Procedure 09/01/24 Pre Op Diagnosis End-stage renal disease Post Op Diagnosis Same as preop diagnosis Procedure Creation of arteriovenous fistula between the brachial artery and the basilic vein Findings Excellent flow in the basilic vein Procedure Description With the patient supine under adequate general anesthesia the left upper extremity sterilely prepped and draped. Venous tourniquet was put up in the upper arm and ultrasound was used to confirm quality and suitability of the basilic vein and the brachial artery to create AV fistula a slightly oblique incision was then made in the antecubital fossa and the basilic vein was dissected free from surrounding tissues, ligated distally and mobilized. The dissection was deepened through the bicipital aponeurosis to expose the brachial artery. The brachial artery was clamped proximally distally and longitudinal arteriotomy was made and stay sutures were placed. The vein was cut to size and sewn to the artery with a combination of interrupted and running 7-0 Prolene sutures. Before completion the anastomosis the brachial artery was 4 flushed and back flushed, the vein was back flushed the anastomotic area was copiously irrigated with heparin saline. Anastomosis was completed and flow was established from the proximal brachial artery to the fistula for several cardiac pulsations before removing the distal clamp. Hemostasis was obtained in the wound as necessary and then it was closed in layers with 3-0 Vicryl the subcutaneous tissues and a 4 Monocryl subcuticular skin closure. Dermabond dressing was applied. Patient woke up from anesthesia was moved to recovery in stable condition Anesthesia other (Laryngeal mask anesthesia) Implants None Pathology / specimen None Estimated Blood Loss 20 Disposition PACU Surgeon Barrett Segura MD Surgical Staff Operation Date: 09/01/24 14:00 Case Staff Anesthesiologist: Germán Lao RN First Assistant: Denisse Rush
--- NOTE | 2024-09-01 13:58 | SUR.PHASEI ---
1358 Report received from Donna Simpson RN
--- NOTE | 2024-09-01 14:20 | SUR.PHASEII ---
[address] Lao via telephone patient blood pressure elevated, 197/68 telephone order read-back received for Hydralazine 10mg IVP for blood pressure SBP>180 and or DBP >105 repeat dose in 15min if blood pressure remains elevated with given parameters, will place order in EMR and administer per MD order
[2024-09-01] MEDS: hydrALAZINE INJ 20 MG/ML VIAL 10 MG IVP (14:31)
--- NOTE | 2024-09-01 15:01 | SUR.PHASEII ---
1501 Patient meets discharge criteria from recovery, awake and alert, breathing unlabored, vital signs stable, denies pain, dressing intact to left arm; dermabond, no bleeding noted, eating ice chips; denies nausea, patient assisted with dressing into his clothing by staff, discharge instructions given to patient and patient friend Adams over the phone with the assistance of the telephone staff interpreter Nova AYALA, patient signed discharge instructions. Patient friend will be awaiting patient at their home as they are room mates. Patient given all his belongings prior to discharge, transported via wheelchair and left with a medical transported service.
== END 2024-09-01 15:01 | disposition home or self-care (01) ==
PROVIDERS: Referring Provider Surgery Vascular Surgery; Visit Provider Surgery Vascular Surgery
PROC: (CPT 36825; principal; 2024-09-01 14:00)
DX: I13.2 Hypertensive heart and chronic kidney disease with heart failure and with stage 5 chronic kidney disease, or end stage renal disease (principal); I77.0 Arteriovenous fistula, acquired; N18.6 End stage renal disease; E11.22 Type 2 diabetes mellitus with diabetic chronic kidney disease; I50.9 Heart failure, unspecified; E78.00 Pure hypercholesterolemia, unspecified; Z01.810 Encounter for preprocedural cardiovascular examination
CPT/HCPCS: 36821; 36415; 80053; 84132; 85025; 85610; 85730; 93005; A4217; A4649; J0131; J0360; J0690; J1644; J2440; J2598; J2704; J3010; J3490; J0665

== ENCOUNTER 2024-10-13 20:14 | Emergency (ER) | payer MEDICAID, SELFPAY ==
[2024-10-13 20:17] VITALS: BMI 29.0
[2024-10-13 20:32] VITALS: BP 178/88; PULSE 67; RESP 18; TEMP 36.6; O2SAT 97
--- NOTE | 2024-10-13 20:39 | XR_ITS ---
Examination: PA chest single view TECHNIQUE: Upright PA chest single view Date and time: October 13, 2024, 2043 hours Comparison April 07, 2024 INDICATIONS: Chest pain and shortness of breath today. FINDINGS: Pneumonia right base with moderate right pleural effusion Mild prominence left ventricle with moderate vascular congestion. No pneumothorax IMPRESSION: Right base pneumonia with moderate right pleural effusion
--- NOTE | 2024-10-13 20:43 | EDNOTE_ITS ---
ED General RME/HPI General Chief complaint: General Adult/Misc Complain Stated complaint: PULLED OUT DIALYISIS CATH Time Seen by Provider: 10/13/24 20:40 Arrival date/time: 10/13/24 20:14 RME / HPI RME / HPI narrative: 64-year-old male patient with significant history of ESRD, hypertension, diabetes mellitus, came in for evaluation after patient accidentally pulled out his dialysis cath. Onset of symptoms few minutes prior to ER visit. Currently patient not having any symptoms. Patient scheduled for hemodialysis tomorrow Related Data Home Medications ?Medication ?Instructions ?Recorded ?Confirmed dulaglutide 1.5 mg/0.5 mL 1.5 mg subcut QWEEK 04/05/24 04/05/24 subcutaneous pen injector (Trulicity) atorvastatin 20 mg tablet 20 mg PO HS 08/31/24 5 insulin glargine 100 unit/mL (3 5 unit subcut QDAY 08/31/24 mL) subcutaneous pen (Basaglar KwikPen U-100 Insulin) Previous Rx's ?Medication ?Instructions ?Recorded bumetanide 2 mg tablet 2 mg PO QDAY #30 tabs carvedilol 25 mg tablet 25 mg PO BID #60 tabs hydralazine 100 mg tablet 100 mg PO TID #30 tabs 04/08 blood-glucose sensor (FreeStyle #1 ea 04/10/24 Lurdes 3 Plus Sensor device) blood-glucose,community arts officer,cont #1 ea 04/10/24 (FreeStyle [place] 3 [place]) lisinopril 40 mg tablet 40 mg PO QDAY #30 tabs 04/11 amoxicillin 875 mg-potassium 1 tab PO BID #14 tabs clavulanate 125 mg tablet azithromycin 250 mg tablet 250 mg PO QDAY 4 days #4 ta bs 10/13/24 (Zithromax) Allergies Allergy/AdvReac Type Severity Reaction Status Date / Time No Known Allergies Allergy Verified 09/01/24 10:52 Review of Systems Review of Systems Narrative Review of Systems: Review of system reviewed and within normal limits except mentioned in HPI ED Exam Narrative Physical exam: VITAL SIGNS: Reviewed. GENERAL APPEARANCE: Alert and interactive, follows commands, no acute distress, HEAD AND FACE: Non-traumatic. ENT: PERRL, pink conjunctivitis, eyelid no trauma, Mucous membrane moist. NECK: Supple, nontender, no nuchal rigidity. CHEST: No tenderness, no crepitus, no paradoxical movement, no retractions. Status post dialysis cath site no bleeding right chest wall LUNGS: Clear, well ventilated, symmetric, no rales, no wheezing, no ronchi, no stridor, good breath sounds bilaterally. HEART: Regular rate, regular rhythm, no murmur, no gallops. ABDOMEN: Soft, positive bowel sounds, nondistended, no guarding, nontender, no rebound, no masses, RECTAL: Deferred. GENITAL: Deferred. NEUROLOGICAL: Gross motor function intact sensory function intact, Appropriate for age. MUSCULOSKELETAL: low back nontender, full range of motion. EXTREMITIES: Nontender, full range of motion. Left AV fistula with no redness SKIN: Color pink, dry, no rash, no lacerations, no abrasions, no contusions. LYMPHATICS: Deferred. Course Quality Measures none Orders Category Date Time Status XR chest 1V Stat Exams 10/13/24 20:39 Completed Amoxicillin/Pot Clav 875 [Augmentin 875] Med 10/13/24 21:40 Discontinued 1 tab PO X1 ONE Azithromycin Po [Zithromax PO] Med 10/13/24 21:40 Discontinued 500 mg PO X1 ONE Vital Signs Vital signs: Vital Signs Temperature 98 F 10/13/24 20:32 Pulse Rate 67 10/13/24 20:32 Respiratory Rate 18 10/13/24 20:32 Blood Pressure 178/88 H 10/13/24 20:32 Pulse Oximetry (%) 97 10/13/24 20:32 Oxygen Delivery Method Room Air 10/13/24 20:32 Discharge Plan Plan Patient Disposition: HOME (Self Care) Discharge Disposition comment: Stable Prescriptions/Referrals Prescriptions/Med Rec: New amoxicillin-pot clavulanate 875-125 mg tablet 1 tab PO BID Qty: 14 0RF azithromycin [Zithromax] 250 mg tablet 250 mg PO QDAY 4 Days Qty: 4 0RF Rx Instructions: start on day 2 of therapy No Action Trulicity 1.5 mg/0.5 mL pen injector 1.5 mg SUBCUT QWEEK Patient Comments: INJECT 1 PEN (1.5 MG) SUBCUTANEOUSLY ONCE A WEEK 30 DAYS hydralazine 100 mg tablet 100 mg PO TID Qty: 30 0RF (DME) FreeStyle [place] 3 Plus Sensor Device See Rx Instructions .Route Qty: 1 0RF Rx Instructions: As directed (DME) FreeStyle [place] 3 [place] Misc See Rx Instructions .Route Qty: 1 0RF Rx Instructions: As directed lisinopril 40 mg tablet 40 mg PO QDAY Qty: 30 0RF bumetanide 2 mg tablet 2 mg PO QDAY Qty: 30 0RF carvedilol 25 mg tablet 25 mg PO BID Qty: 60 0RF Rx Instructions: must administer with a meal/food atorvastatin 20 mg tablet 20 mg PO HS Patient Comments: TOME SEVEN TABLETA POR V A ORAL EN LA NOCHE insulin glargine [Basaglar KwikPen U-100 Insulin] 100 unit/mL (3 mL) insulin pen 5 unit SUBCUT QDAY Referrals: No Primary/Family,Physician [Primary Care Provider] - In 1 week Problem List Clinical Impression: Pneumonia, Displacement of central venous catheter (CVC) Patient/Caregiver Discharge Instructions Discharge Activity: activity as tolerated Education Materials: ED Pneumonia (Adult) Additional Instructions: Thank you for the opportunity for serving you today. You are stable for discharged . You are advised to: Please return to the emergency room tomorrow 8:00 in the morning for placement of dialysis catheter Return to ED for worsening of symptoms Take medication as prescribed Print Language: Serbian Stand Alone Forms: Audrey Award Info., Patient Portal Info Letter PA/LIZZIE Supervising Physician MARY Supervising Physician: MD Christiano [facility] Narrative [facility] hospital course: 64-year-old male patient with significant history of ESRD, hypertension, diabetes mellitus, came in for evaluation after patient accidentally pulled out his dialysis cath. Onset of symptoms few minutes prior to ER visit. Currently patient not having any symptoms. Patient scheduled for hemodialysis tomorrow Spoke with Dr. Main, who told me that patient can come back tomorrow 8:00 in the morning for placement of dialysis cath. Chest x-ray showed pneumonia otherwise unremarkable. Patient received Augmentin and Zithromax in the ED. I personally reviewed and interpreted the x-ray of this patient. There is no acute abnormalities found, no infiltrates no pneumothorax no hemothorax normal chest x-ray. Review of other structures was without significant abnormal findings also. I additionally reviewed the radiologist report and agree with the interpretation. Medication Administration(s) Medication Administration History Discontinued Medications Amoxicillin/Clavulanate Potassium (Amoxicillin/Pot Clav 875 Tablet) 1 tab PO X1 ONE Stop: 10/13/24 21:41 Last Admin: 10/13/24 21:51 Dose: 1 tab Documented By: EF Azithromycin (Azithromycin 250 Mg Tablet) 500 mg PO X1 ONE Stop: 10/13/24 21:41 Last Admin: 10/13/24 21:51 Dose: 500 mg Documented By: EF Dispositon Disposition: Discharge Home
[2024-10-13 21:12] VITALS: BMI 24.3
[2024-10-13] MEDS: AZITHROMYCIN 250 MG TABLET 500 MG PO (21:51)
[2024-10-13] MEDS: AMOXICILLIN/POT CLAV 875 TABLET 1 TAB PO (21:51)
[2024-10-13 22:03] VITALS: BP 207/88; PULSE 71
[2024-10-13 22:05] VITALS: BP 207/88; PULSE 71; RESP 18; O2SAT 97
== END 2024-10-13 22:07 | disposition home or self-care (01) ==
PROVIDERS: Emergency Provider Emergency Medicine
DX: T82.42XA Displacement of vascular dialysis catheter, initial encounter (principal); J18.9 Pneumonia, unspecified organism; Y84.1 Kidney dialysis as the cause of abnormal reaction of the patient, or of later complication, without mention of misadventure at the time of the procedure; I12.0 Hypertensive chronic kidney disease with stage 5 chronic kidney disease or end stage renal disease; E11.22 Type 2 diabetes mellitus with diabetic chronic kidney disease; N18.6 End stage renal disease; Z79.4 Long term (current) use of insulin; Z79.85 Long-term (current) use of injectable non-insulin antidiabetic drugs
CPT/HCPCS: 71045; 99283; A9270

== ENCOUNTER 2024-10-14 07:24 | Emergency (ER) | payer MEDICAID, SELFPAY ==
[2024-10-14] VITALS (8 sets, daily range): BP systolic 159–205; BP diastolic 68–91; PULSE 60–65; RESP 16–20; TEMP 36.3–36.7; O2SAT 95–100; BMI 28.1; BMI 28.8
--- NOTE | 2024-10-14 | XR_ITS ---
Ultrasound-guided needle placement right internal jugular vein Permanent tunneled dialysis catheter insertion, percutaneous Fluoroscopy AP chest, portable, single view. Date and time of procedure: October 14, 2024 1017 hours INDICATIONS: Renal failure patient with need for stat and long-term dialysis Informed consent provided Technique: A timeout was completed verifying correct patient, procedure, site, positioning, and special equipment if applicable. The patient was placed in a dependent position appropriate for dialysis catheter placement based on the vein to be cannulated. The patient'sright neck was prepped and draped in sterile fashion. Maximum Sterile Barrier Technique used including cap, mask, sterile gown, sterile gloves, and sterile full body drape. If ultrasound technique used: sterile gel and sterile probe covers. Hand Hygiene performed using proper scrub, soap and water, or alcohol-based hand rub. 1% lidocaine was used to anesthetize the surrounding skin area The [employer] [place] portable ultrasound apparatus was utilized to confirm patency of the right internal jugular vein, utilizing ultrasonographic guidance successful 21 Puncture into the right internal jugular vein Ultrasound images were recorded and stored. Vessel micropuncture was performed with 21-gauge needle. 0.18 wire guide is introduced into the vein. 0.18 wire is introduced into the vena cava under fluoroscopy. Subcutaneous tunnel formed in the upper chest. Permanent tunneled dialysis catheter placed in the subcutaneous tunnel. Dilators were introduced over the J-wire guide. Tunneled dialysis catheter is introduced through a dilator with venous sheath into the superior vena cava under fluoroscopic guidance. The catheter is sutured in place to the skin and a sterile dressing applied. Perfusion to the extremity distal to the point of catheter insertion is checked and found to be adequate Attending radiologist was present for the entire procedure Estimated blood loss4 cc. The patient tolerated the procedure well and there were no complications Impression: Successful ultrasound-guided needle placement right internal jugular vein Successful permanent tunneled dialysis catheter insertion, percutaneous Fluoroscopy 0.5 minute radiation dose 19.83 milligray 1 spot fluoroscopic chest film. AP chest performed at completion procedure demonstrates satisfactory position dialysis catheter. May use dialysis catheter.
--- NOTE | 2024-10-14 07:48 | XR_ITS ---
Examination: PA chest single view TECHNIQUE: Upright PA chest single view Date and time: October 14, 2024 0840 hours Comparison October 13, 2024 INDICATIONS: Dialysis catheter pulled out today. FINDINGS: Mild prominence of ventricle. Pneumonia right base with mild to moderate right pleural fluid Mild vascular congestion. No luh pulmonary edema IMPRESSION: Pneumonia right base with mild to moderate right pleural fluid
--- NOTE | 2024-10-14 07:50 | EDRME_ITS ---
Rapid Medical Screening Exam [facility] Arrival date/time: 10/14/24 07:24 CC: Dialysis catheter pulled out HPI patient seen here yesterday, for the same complaint. Patient denies any shortness of breath or difficulty breathing. Review of the notes show the patient's otolaryngology surgeon is Dr. Main. Patient needs dialysis catheter replaced Chief Complaint: General Adult/Misc Complain Vital signs: Vital Signs Temperature 98.0 F 10/14/24 07:38 Pulse Rate 65 10/14/24 07:38 Respiratory Rate 18 10/14/24 07:38 Blood Pressure 159/68 H 10/14/24 07:38 Pulse Oximetry (%) 95 10/14/24 07:38 Oxygen Delivery Method Room Air 10/14/24 07:38
[2024-10-14 08:36] LABS: Basophils # (Auto) 0.0 Thou/mm3 (0.0-0.2); Basophils % (Auto) 0 % (0-2.5); Eosinophils # (Auto) 0.4 Thou/mm3 (0.0-0.5); Eosinophils % (Auto) 5 % (0-10); Hematocrit 34.7 % (41.0-53.0); Hemoglobin 11.5 g/dL (13.5-16.0); Immature Granulocytes Auto 0.02 Thou/mm3 (0.00-0.00); Lymphocytes # (Auto) 1.8 Thou/mm3 (1.0-4.8); Lymphocytes % (Auto) 23 % (10-50); Mean Corpuscular HGB Conc 33.1 g/dl (31.0-37.0); Mean Corpuscular Hemoglobin 29.4 pg (25.0-35.0); Mean Corpuscular Volume 89 fL (80-100); Monocytes # (Auto) 1.0 Thou/mm3 (0.0-0.8); Monocytes % (Auto) 12 % (0-12); Neutrophils # (Auto) 4.6 Thou/mm3 (1.8-7.7); Neutrophils % (Auto) 60 % (37-80); Nucleated Red Blood Cell # 0.00 Thou/mm3 (0.00-0.00); Nucleated Red Blood Cell % 0 /100 WBC (0); Platelet Count 179 Thou/mm3 (140-440); RDW Standard Deviation 48.4 fL (35.1-43.9); Red Blood Count 3.91 Miln/mm3 (4.50-5.90); White Blood Count 7.8 Thou/mm3 (3.8-10.6)
[2024-10-14 09:10] LABS: Blood Urea Nitrogen 43 mg/dL (9-23); Creatinine (Component) 5.0 mg/dL (0.6-1.3); Estimated Creatinine Clearance 15.9 mL/min (>60); INR 1.0 (0.9-1.3); Partial Thromboplastin Time 27.5 Seconds (22.0-36.0); Prothrombin Time 10.9 Seconds (9.0-12.2); eGFR 12 See Note
--- NOTE | 2024-10-14 10:27 | PC.NURSE ---
PATIENT IN ROOM STATING HE WAS SENT TO ED FOR DIALYSIS CATHETER PLACEMENT. CONTACTED IR AND GAVE REPORT TO CHARLES. ATTEMPTED TO ESTABLISH IV, BS 203. IR RN STATES THEY WILL OBTAIN CONSENT PRIOR TO PROCEDURE.
--- NOTE | 2024-10-14 10:33 | PC.NURSE ---
PATIENT TAKEN TO IR VIA WHEELCHAIR. PATIENT WILL RETURN TO ED AFTER PROCEDURE.
[2024-10-14] MEDS: HEPARIN SOD LOCK SYR 100 UNIT/ML 500 UNIT IV (11:20)
[2024-10-14] MEDS: fentaNYL CIT INJ 50 mCg/ML AMP 2ML IVP (11:21)
[2024-10-14] MEDS: LIDOCAINE INJ PF 1% 30 ML VIAL 9 ML INFL (11:21)
[2024-10-14] MEDS: HEPARIN SOD INJ 1000 UNIT/ML VIAL 3300 UNIT INDWELLCAT (12:00)
[2024-10-14] MEDS: ONDANSETRON INJ 2 MG/ML INJ 2 ML 4 MG IVP (12:01)
--- NOTE | 2024-10-14 12:04 | PC.NURSE ---
RECEIVED CALL FROM IR NURSE SOTO WITH REPORT FOLLOWING PROCEDURE. PATIENT RECEIVED FENTENYL 50MEQ AND NOW COMPLAINT OF NAUSEA, WILL GET ORDER FOR ZOFRAN. PATIENT RETURNED TO ED VIA GURNEY.
--- NOTE | 2024-10-14 13:46 | EDNOTE_ITS ---
ED General RME/HPI General Chief complaint: General Adult/Misc Complain Stated complaint: HD CATH TO BE REPLACED FELL OFF LAST NIGHT Time Seen by Provider: 10/14/24 10:34 Arrival date/time: 10/14/24 07:24 Limitations: no limitations RME / HPI RME / HPI narrative: 10/14/24 07:24 CC: Dialysis catheter pulled out HPI patient seen here yesterday, for the same complaint. Patient denies any shortness of breath or difficulty breathing. Review of the notes show the patient's hot car operator is Dr. Main. Patient needs dialysis catheter replaced DR. TUBBS MAIN ED EVALUATION: 64 year old male with history of HFpEF 50-55% 03/2024, hypertension, hyperlipidemia, CKD, ESRD on HD M/W/F presents to the ED for dialysis catheter replacement. Reports yesterday while taking a shower the catheter had fallen out and was evaluated here. Evidently IR was unavailable during that time and was advised to return this morning. Patient last received dialysis 2 days ago Thursday. While in the ED patient has no complaints. Denies fevers, chills, chest pain, cough, shortness of breath, abdominal pain, n/v/d. Communications Coordinator; Dr. Main Related Data Home Medications ?Medication ?Instructions ?Recorded ?Confirmed dulaglutide 1.5 mg/0.5 mL 1.5 mg subcut QWEEK 04/05/24 04/05/24 subcutaneous pen injector (Trulicity) atorvastatin 20 mg tablet 20 mg PO HS 08/31/24 5 insulin glargine 100 unit/mL (3 5 unit subcut QDAY 08/31/24 mL) subcutaneous pen (Basaglar KwikPen U-100 Insulin) Previous Rx's ?Medication ?Instructions ?Recorded bumetanide 2 mg tablet 2 mg PO QDAY #30 tabs carvedilol 25 mg tablet 25 mg PO BID #60 tabs hydralazine 100 mg tablet 100 mg PO TID #30 tabs 04/08 blood-glucose sensor (FreeStyle #1 ea 04/10/24 Lurdes 3 Plus Sensor device) blood-glucose,mammography technologist,cont #1 ea 04/10/24 (FreeStyle Lurdes 3 [place]) lisinopril 40 mg tablet 40 mg PO QDAY #30 tabs 04/11 amoxicillin 875 mg-potassium 1 tab PO BID #14 tabs clavulanate 125 mg tablet azithromycin 250 mg tablet 250 mg PO QDAY 4 days #4 ta bs 10/13/24 (Zithromax) Allergies Allergy/AdvReac Type Severity Reaction Status Date / Time No Known Allergies Allergy Verified 10/14/24 07:26 Review of Systems Review of Systems Systems Reviewed: All systems reviewed, normal except as documented Past Medical History Past Medical History CARDIAC: Positive Cardiac Disorders, Hypercholesterolemia, Edema, Cellulitis and Hypertension RESPIRATORY: Positive Pulmonary Edema (ABOUT 6 MONTHS AGO) GENITOURINARY: Positive Genitourinary Disorders, Renal Disease and Dialysis (M-W-F) ENDOCRINE: Positive Endocrine Disorders and Diabetes Mellitus Type 2 PSYCHO/SOCIAL: Positive Depression (NO MEDS) OTHER HISTORY: Positive Hospitalization (6 MONTHS AGO) and Falls (USES CANE) Family History FAMILY HISTORY: Negative Family Anesthesia Reaction Surgical History SURGICAL: Positive Amputation (RIGHT BIG TOE) Social History SMOKING STATUS: Former smoker SUBSTANCE USE: does not use ED Exam General Limitations: Present no limitations General appearance: Present alert and in no apparent distress Head Head exam: Present atraumatic, normocephalic and normal inspection Eye Eye exam: Present normal appearance, PERRL and EOMI ENT ENT exam: Present normal exam, normal oropharynx and mucous membranes moist Neck Neck exam: Present normal inspection, full ROM and trachea midline Chest Chest inspection: Present normal inspection and symmetric chest wall rise Respiratory Respiratory exam: Present normal lung sounds bilaterally Cardiovascular Cardiovascular exam: Present regular rate, normal rhythm and normal heart sounds Abdominal Exam Abdominal exam: Present soft and normal bowel sounds Extremities Exam Extremities exam: Present normal inspection and full ROM Back Exam Back exam: Present normal inspection and full ROM Neurological Exam Neurological exam: Present alert, oriented X3 and CN II-XII intact Psychiatric Psychiatric exam: Present normal affect and normal mood Skin Skin exam: Present warm, dry, intact and normal color Course Quality Measures none Orders Category Date Time Status IV [Insert IV] NOW Care 10/14/24 10:30 Completed IR dialysis catheter insertion Stat Exams 10/14/24 Completed XR chest 1V Stat Exams 10/14/24 07:48 Completed BUN [Blood Urea Nitrogen] Stat Lab 10/14/24 08:38 Completed CBC Stat Lab 10/14/24 07:47 Completed Creatinine w eGFR Stat Lab 10/14/24 08:38 Completed PT [Prothrombin Time with INR] Stat Lab 10/14/24 08:38 Completed PTT [Partial Thromboplastin Time] Stat Lab 10/14/24 08:38 Completed Heparin 1000 UNIT/ML-1 ML [Heparin 1000 Unit/ml-1 ml] Med 10/14/24 11:20 Discontinued 3,300 unit INDWELLCAT X1 ONE Heparin 1000 UNIT/ML-1 ML [Heparin 1000 Unit/ml-1 ml] Med 10/14/24 11:10 Discontinued 5,000 unit .ROUTE .STK-MED ONE Heparin Sod Lock Syr [Hep-Lock 100 UNIT/ML SYR] Med 10/14/24 11:11 Discontinued 500 unit .ROUTE .STK-MED ONE Heparin Sod Lock Syr [Hep-Lock 100 UNIT/ML SYR] Med 10/14/24 11:20 Discontinued 500 unit IV X1 ONE Lidocaine 1% Pf 30 ml [Xylocaine 1% Pf 30 ml] Med 10/14/24 11:11 Discontinued 30 ml .ROUTE .STK-MED ONE Lidocaine 1% Pf 30 ml [Xylocaine 1% Pf 30 ml] Med 10/14/24 11:20 Discontinued 9 ml INFL X1 ONE NALOXONE INJ (Vial) [Narcan Inj (Vial)] Med 10/14/24 11:10 Discontinued 0.4 mg .ROUTE .STK-MED ONE Ondansetron Inj [Zofran Inj] Med 10/14/24 11:11 Discontinued 4 mg .ROUTE .STK-MED ONE Ondansetron Inj [Zofran Inj] Med 10/14/24 11:59 Discontinued 4 mg .ROUTE .STK-MED ONE Ondansetron Inj [Zofran Inj] Med 10/14/24 12:00 Discontinued 4 mg IVP X1 ONE fentaNYL INJ [Sublimaze Inj] Med 10/14/24 11:11 Discontinued 100 mcg .ROUTE .STK-MED ONE fentaNYL INJ [Sublimaze Inj] Med 10/14/24 11:20 Discontinued 50 mcg IVP X1 ONE Vital Signs Vital signs: Vital Signs Temperature 98.0 F 10/14/24 07:38 Pulse Rate 65 10/14/24 07:38 Respiratory Rate 18 10/14/24 07:38 Blood Pressure 159/68 H 10/14/24 07:38 Pulse Oximetry (%) 95 10/14/24 07:38 Oxygen Delivery Method Room Air 10/14/24 07:38 Pulse ox is 95% on room air which is adequate. Critical Care Time Critical Care Time Critical Care Time: No Discharge Plan Plan Patient Disposition: HOME (Self Care) Prescriptions/Referrals Prescriptions/Med Rec: No Action Trulicity 1.5 mg/0.5 mL pen injector 1.5 mg SUBCUT QWEEK Patient Comments: INJECT 1 PEN (1.5 MG) SUBCUTANEOUSLY ONCE A WEEK 30 DAYS hydralazine 100 mg tablet 100 mg PO TID Qty: 30 0RF (DME) FreeStyle Lurdes 3 Plus Sensor Device See Rx Instructions .Route Qty: 1 0RF Rx Instructions: As directed (DME) FreeStyle Lurdes 3 [place] Misc See Rx Instructions .Route Qty: 1 0RF Rx Instructions: As directed lisinopril 40 mg tablet 40 mg PO QDAY Qty: 30 0RF bumetanide 2 mg tablet 2 mg PO QDAY Qty: 30 0RF carvedilol 25 mg tablet 25 mg PO BID Qty: 60 0RF Rx Instructions: must administer with a meal/food atorvastatin 20 mg tablet 20 mg PO HS Patient Comments: TOME SEVEN TABLETA POR V A ORAL EN LA NOCHE insulin glargine [Basaglar KwikPen U-100 Insulin] 100 unit/mL (3 mL) insulin pen 5 unit SUBCUT QDAY amoxicillin-pot clavulanate 875-125 mg tablet 1 tab PO BID Qty: 14 0RF azithromycin [Zithromax] 250 mg tablet 250 mg PO QDAY 4 Days Qty: 4 0RF Rx Instructions: start on day 2 of therapy Referrals: Vik Lopez MD [Primary Care Provider] - In 1 week Problem List Clinical Impression: Dialysis catheter clot or failure Patient/Caregiver Discharge Instructions Additional Instructions: Please attend your scheduled dialysis treatment Thursday10/17/2024. You can return to the emergency department sooner if symptoms worsen or if you notice any new, concerning issues. Print Language: Citizen Of [place] Stand Alone Forms: Audrey Award Info., Patient Portal Info Letter MDM Narrative [facility] hospital course: Kayy Goyal, alyssa scribing for and in the presence of Dr. Tubbs. After returning from IR, the patient is awake, answering questions appropria tely, and eating a sandwich. Has no complaints of feeling short of breath and saturating 98% on room air. No chest pain. We reviewed all the results, analysis, and treatment plans. Patient is amenable to discharge with instructions to go to his scheduled dialysis this upcoming Thursday. Strict return precautions were outlined. Procedures done or offered: Patient had dialysis catheter replaced by NIKOLAY Christine without complications. Clinical Information Provided by patient Medical Records Reviewed [facility] I reviewed ED visit from yesterday 10/13/2024 Meds/Rx Considered, not Ordered None Labs/Rad/Tests considered, not Ordered None Chronic Illness/Social Conditions which may negatively complicate care or outcome(s)-explain: None or not applicable EKG EKG not done Lab Interpretation Labs: interpreted by az Lab(s) interpretation(s): CBC unremarkable BUN, creatinine, and eGFR are elevated chronically Imaging Imaging interpretation: see narrative above Radiology reports / interpretation(s): Ordering Physician: Parviz Ricks NP Date of Service: 10/14/24 Procedure(s): IR dialysis catheter insertion Accession Number(s): [id number] cc: Vik Lopez MD; Parviz Ricks NP; Tony Christine MD~ Ultrasound-guided needle placement right internal jugular vein Permanent tunneled dialysis catheter insertion, percutaneous Fluoroscopy AP chest, portable, single view. Date and time of procedure: October 14, 2024 1017 hours INDICATIONS: Renal failure patient with need for stat and long-term dialysis Informed consent provided Technique: A timeout was completed verifying correct patient, procedure, site, positioning, and special equipment if applicable. The patient was placed in a dependent position appropriate for dialysis catheter placement based on the vein to be cannulated. The patient'sright neck was prepped and draped in sterile fashion. Maximum Sterile Barrier Technique used including cap, mask, sterile gown, sterile gloves, and sterile full body drape. If ultrasound technique used: sterile gel and sterile probe covers. Hand Hygiene performed using proper scrub, soap and water, or alcohol-based hand rub. 1% lidocaine was used to anesthetize the surrounding skin area [facility] Soundtr[employer] portable ultrasound apparatus was utilized to confirm patency of the right internal jugular vein, utilizing ultrasonographic guidance successful 21 Puncture into the right internal jugular vein Ultrasound images were recorded and stored. Vessel micropuncture was performed with 21-gauge needle. 0.18 wire guide is introduced into the vein. 0.18 wire is introduced into the vena cava under fluoroscopy. Subcutaneous tunnel formed in the upper chest. Permanent tunneled dialysis catheter placed in the subcutaneous tunnel. Dilators were introduced over the J-wire guide. Tunneled dialysis catheter is introduced through a dilator with venous sheath into the superior vena cava under fluoroscopic guidance. The catheter is sutured in place to the skin and a sterile dressing applied. Perfusion to the extremity distal to the point of catheter insertion is checked and found to be adequate Attending radiologist was present for the entire procedure Estimated blood loss4 cc. The patient tolerated the procedure well and there were no complications Impression: Successful ultrasound-guided needle placement right internal jugular vein Successful permanent tunneled dialysis catheter insertion, percutaneous Fluoroscopy 0.5 minute radiation dose 19.83 milligray 1 spot fluoroscopic chest film. AP chest performed at completion procedure demonstrates satisfactory position dialysis catheter. May use dialysis catheter. Dictated By: Tony Christine MD Signed By: <Electronically signed by Tony Christine MD in OV> 10/14/24 1155 Ordering Physician: Parviz Ricks NP Date of Service: 10/14/24 Procedure(s): XR chest 1V Accession Number(s): [id number] cc: Vik Lopez MD; Parviz Ricks NP; Tony Christine MD~ Examination: PA chest single view TECHNIQUE: Upright PA chest single view Date and time: October 14, 2024 0840 hours Comparison October 13, 2024 INDICATIONS: Dialysis catheter pulled out today. FINDINGS: Mild prominence of ventricle. Pneumonia right base with mild to moderate right pleural fluid Mild vascular congestion. No luh pulmonary edema IMPRESSION: Pneumonia right base with mild to moderate right pleural fluid Dictated By: Tony Christine MD Signed By: <Electronically signed by Tony Christine MD in OV> 10/14/24 0856 Medication Administration(s) Medication Administration History Discontinued Medications Fentanyl Citrate (Fentanyl Cit Inj 50 Mcg/Ml Amp 2ml) Confirm Administered Dose 100 mcg .ROUTE .STK-MED ONE Stop: 10/14/24 11:12 Last Admin: 10/14/24 11:27 Dose: Not Given Documented By: EG Non-Admin Reason: Duplicate Medication on eMAR Fentanyl Citrate (Fentanyl Cit Inj 50 Mcg/Ml Amp 2ml) 50 mcg IVP X1 ONE Stop: 10/14/24 11:21 Last Admin: 10/14/24 11:21 Dose: 50 mcg Documented By: EG Heparin Sodium (Beef Lung) (Heparin Sod Lock Syr 100 Unit/Ml) Confirm Administered Dose 500 unit .ROUTE .STK-MED ONE Stop: 10/14/24 11:12 Last Admin: 10/14/24 11:27 Dose: Not Given Documented By: EG Non-Admin Reason: Duplicate Medication on eMAR Heparin Sodium (Beef Lung) (Heparin Sod Lock Syr 100 Unit/Ml) 500 unit IV X1 ONE Stop: 10/14/24 11:21 Last Admin: 10/14/24 11:20 Dose: 500 unit Documented By: EG Heparin Sodium (Porcine) (Heparin Sod Inj 1000 Unit/Ml Vial) Confirm Administered Dose 5,000 unit .ROUTE .STK-MED ONE Stop: 10/14/24 11:11 Last Admin: 10/14/24 11:24 Dose: Not Given Documented By: EG Non-Admin Reason: Duplicate Medication on eMAR Heparin Sodium (Porcine) (Heparin Sod Inj 1000 Unit/Ml Vial) 3,300 unit INDWELLCAT X1 ONE Stop: 10/14/24 11:21 Last Admin: 10/14/24 12:00 Dose: 3,300 unit Documented By: EG Co-signed By: CU Lidocaine HCl (Lidocaine Inj Pf 1% 30 Ml Vial) Confirm Administered Dose 30 ml .ROUTE .STK-MED ONE Stop: 10/14/24 11:12 Last Admin: 10/14/24 11:27 Dose: Not Given Documented By: EG Non-Admin Reason: Duplicate Medication on eMAR Lidocaine HCl (Lidocaine Inj Pf 1% 30 Ml Vial) 9 ml INFL X1 ONE Stop: 10/14/24 11:21 Last Admin: 10/14/24 11:21 Dose: 9 ml Documented By: EG Comments: administered by dr. christine Naloxone HCl (Naloxone Inj 0.4 Mg/Ml Vial) Confirm Administered Dose 0.4 mg .ROUTE .STLast Second Tickets-userfox ONE Stop: 10/14/24 11:11 Last Admin: 10/14/24 11:26 Dose: Not Given Documented By: EG Non-Admin Reason: Other, see note Ondansetron HCl (Ondansetron Inj 2 Mg/Ml Inj 2 Ml) Confirm Administered Dose 4 mg .ROUTE .STLast Second Tickets-MED ONE Stop: 10/14/24 11:12 Last Admin: 10/14/24 11:27 Dose: Not Given Documented By: EG Non-Admin Reason: Other, see note Ondansetron HCl (Ondansetron Inj 2 Mg/Ml Inj 2 Ml) Confirm Administered Dose 4 mg .ROUTE .BoomBang-userfox ONE Stop: 10/14/24 12:00 Last Admin: 10/14/24 12:24 Dose: Not Given Documented By: EG Non-Admin Reason: Other, see note Ondansetron HCl (Ondansetron Inj 2 Mg/Ml Inj 2 Ml) 4 mg IVP X1 ONE; Protocol Stop: 10/14/24 12:01 Last Admin: 10/14/24 12:01 Dose: 4 mg Documented By: EG See above Diagnosis Most likely dx, and/or detailed dx discussion: Dialysis catheter failure s/p dialysis catheter insertion Dispositon Disposition: Discharge Home
== END 2024-10-14 13:51 | disposition home or self-care (01) ==
PROVIDERS: Radiology Diagnostic Radiology; Registered Nurse General Practice; Emergency Provider Family Medicine; PCP Family Medicine
DX: Z45.2 Encounter for adjustment and management of vascular access device (principal); N18.6 End stage renal disease; J18.9 Pneumonia, unspecified organism; E11.22 Type 2 diabetes mellitus with diabetic chronic kidney disease; I13.2 Hypertensive heart and chronic kidney disease with heart failure and with stage 5 chronic kidney disease, or end stage renal disease; Z79.4 Long term (current) use of insulin; Z79.85 Long-term (current) use of injectable non-insulin antidiabetic drugs; Z87.891 Personal history of nicotine dependence; I50.32 Chronic diastolic (congestive) heart failure
CPT/HCPCS: 36558; 36415; 71045; 76937; 77001; 82565; 84520; 85025; 85610; 85730; 96374; 96375; 99284; C1750; C1894; J1642; J1643; J2405; J3010; J3490; J7050

== ENCOUNTER 2024-10-27 10:10 | Day surgery (SDC) | payer MEDICAID, SELFPAY ==
[2024-10-25 08:49] VITALS: BMI 29.7
--- NOTE | 2024-10-25 11:03 | SUR.PREOP ---
Pt comes with transport and stated he already has transport set up to bring him at 1030 on Thrusday, stated he will be unable to change transport time.
[2024-10-25 11:20] LABS: Basophils # (Auto) 0.1 Thou/mm3 (0.0-0.2); Basophils % (Auto) 1 % (0-2.5); Eosinophils # (Auto) 0.4 Thou/mm3 (0.0-0.5); Eosinophils % (Auto) 5 % (0-10); Hematocrit 39.0 % (41.0-53.0); Hemoglobin 12.4 g/dL (13.5-16.0); Immature Granulocytes Auto 0.06 Thou/mm3 (0.00-0.00); Lymphocytes # (Auto) 1.9 Thou/mm3 (1.0-4.8); Lymphocytes % (Auto) 22 % (10-50); Mean Corpuscular HGB Conc 31.8 g/dl (31.0-37.0); Mean Corpuscular Hemoglobin 29.3 pg (25.0-35.0); Mean Corpuscular Volume 92 fL (80-100); Monocytes # (Auto) 0.8 Thou/mm3 (0.0-0.8); Monocytes % (Auto) 10 % (0-12); Neutrophils # (Auto) 5.4 Thou/mm3 (1.8-7.7); Neutrophils % (Auto) 62 % (37-80); Nucleated Red Blood Cell # 0.00 Thou/mm3 (0.00-0.00); Nucleated Red Blood Cell % 0 /100 WBC (0); Platelet Count 295 Thou/mm3 (140-440); RDW Standard Deviation 51.3 fL (35.1-43.9); Red Blood Count 4.23 Miln/mm3 (4.50-5.90); White Blood Count 8.6 Thou/mm3 (3.8-10.6)
[2024-10-25 11:36] LABS: Alanine Aminotransferase 21 U/L (10-49); Albumin, Serum 4.0 gm/dL (3.4-4.8); Albumin/Globulin Ratio 1.1 (1.2-2.2); Alkaline Phosphatase 192 U/L (46-116); Anion Gap 11 (7-16); Aspartate Amino Transferase 18 U/L (0-34); BUN/Creatinine Ratio 8 Ratio (12-20); Bilirubin,Total 0.4 mg/dL (0.3-1.2); Blood Urea Nitrogen 41 mg/dL (9-23); Calcium 8.8 mg/dL (8.3-10.6); Calcium (Corrected) 8.8 mg/dL (8.5-10.1); Carbon Dioxide 29.4 mMol/L (20.0-31.0); Chloride 99 mMol/L (98-107); Creatinine (Component) 5.1 mg/dL (0.6-1.3); Estimated Creatinine Clearance 15.3 mL/min (>60); Globulin 3.7 gm/dL (2.3-3.5); Glucose 223 mg/dL (74-106); Osmolality,Calculated 294 (275-295); Potassium 4.4 mMol/L (3.4-5.1); Sodium 139 mMol/L (136-145); Total Protein 7.7 gm/dL (5.7-8.2); eGFR 12 See Note
[2024-10-25 11:41] LABS: INR 1.0 (0.9-1.3); Partial Thromboplastin Time 28.2 Seconds (22.0-36.0); Prothrombin Time 10.8 Seconds (9.0-12.2)
[2024-10-27] VITALS (10 sets, daily range): BP systolic 184–196; BP diastolic 78–86; PULSE 60–66; RESP 12–19; TEMP 36.2–37.2; O2SAT 95–100; BMI 29.9
[2024-10-27 10:55] LABS: Potassium 4.0 mMol/L (3.4-5.1)
--- NOTE | 2024-10-27 10:55 | SUR.PREOP ---
pt refusing non skid socks, pt educated to use call light if he needs to get up for any reason using telephone cleaner and trimmer, pt verbalizes understanding and agrees to call for assistance
[2024-10-27] MEDS: SODIUM CHLORIDE 0.9% 500 ML 500 ML 20 ML IV (11:00)
--- NOTE | 2024-10-27 13:25 | SUR.PHASEI ---
pt received from OR in recovery bay 5. pt asleep but responds to voice, breathing unlabored on 3l nc. v/s stable. pt dressing to left arm scant amount of bleeding noted. report received from Dr. aLo and Kirk GEORGE.
--- NOTE | 2024-10-27 13:26 | SUR.PHASEI ---
Dr. Lao aware of pts elevated b/p, no new orders received.
--- NOTE | 2024-10-27 13:35 | SUR.PHASEI ---
informed Dr. Segura pts incision was bleeding. instructed to hold pressure.
--- NOTE | 2024-10-27 13:50 | SUR.PHASEII ---
dressing to left upper arm reinforced, no bleeding noted. Dr. Segura informed.
--- NOTE | 2024-10-27 14:38 | ESOP_ITS ---
Date of Procedure 10/27/24 Pre Op Diagnosis End-stage renal disease with need for permanent dialysis access Post Op Diagnosis Same as preop diagnosis Procedure Revision of left upper extremity brachiobasilic AV fistula via basilic vein alvarez sposition procedure Findings Excellent flow in the fistula Procedure Description With the patient supine in her attic general esthesia left upper extremity sterilely prepped and draped. A timeout was performed. The course of the basilic vein was then traced from the arterial anastomosis into the elbow up to the axilla was widely patent. And an incision was then made from the deltopectoral groove down to the medial aspect of the elbow and the tissues were dissected with the electrocautery down to the fascia where blunt and sharp dissection as well as the harmonic focus scalpel were used to divide the soft tissues and expose the basilic vein. All crossing branches were ligated with either hemoclips or silk ties. Care was taken to preserve the adjacent antebrachial nerves. When the vein was mobilized throughout the length of the incision a lateral skin flap was made and then the subcutaneous tissues were reapproximated beneath the vein with a continuous 3-0 Vicryl suture and the skin was reapproximated all over the vein with a running 4-0 Monocryl suture. A Prineo dressing was applied. The patient woke well from anesthesia and was moved to recovery in stable condition Anesthesia other (Laryngeal mask anesthesia) Implants None Pathology / specimen None Estimated Blood Loss 75 Condition Stable Disposition PACU Surgeon Barrett Segura MD Surgical Staff Operation Date: 10/27/24 12:45 Case Staff Anesthesiologist: Germán Lao RN First Assistant: Manuel Moreira
--- NOTE | 2024-10-27 15:20 | SUR.PHASEII ---
pt awake and alert, breathing unlabored on room air. v/s stable. pt dressing to left upper arm cdi. pt able to ambulate to wheelchair with steady gait. d/c instructions given with friend Derek over the telephone using statistician theoretical Clotilde chirinos, all questions answered. pt d/c via wheelchair with all belongings.
== END 2024-10-27 15:20 | disposition home or self-care (01) ==
PROVIDERS: Anesthesiology; PCP Family Medicine; Referring Provider Surgery Vascular Surgery; Visit Provider Surgery Vascular Surgery
PROC: (CPT 36819; principal; 2024-10-27 12:30)
DX: N18.6 End stage renal disease (principal); Z99.2 Dependence on renal dialysis
CPT/HCPCS: 36819; 36415; 80053; 84132; 85025; 85610; 85730; A4217; A4649; J0131; J0461; J0690; J1100; J1644; J2250; J2371; J2405; J2704; J3010; J3490; J7999

== ENCOUNTER 2025-02-27 15:18 | Emergency (ER) | payer MEDICAID, SELFPAY ==
--- NOTE | 2025-02-27 15:30 | EDNOTE_ITS ---
<Statement entered by Anitha Merchant MD - 02/28/25 17:48> As co-signing physician, I was present and available for consult prn. I concur with the plan and care as documented by the midlevel provider. ED General RME/HPI General Chief complaint: Extremity Injury, Upper Stated complaint: FISTULA BLEEDING Time Seen by Provider: 02/27/25 15:29 Arrival date/time: 02/27/25 15:18 CC: Left dialysis shunt site bleeding HPI patient presents to the ER via EMS who state there was blood all over the house after they saw him after he took the dressing off during the allotted time and the shunt site began to bleed immediately. Patient denies dizziness or headedness had a full dialysis sessi on. 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 Patient has no specific complaints EMS reports stable vital signs and route. Related Data Home Medications ?Medication ?Instructions ?Recorded ?Confirmed atorvastatin 20 mg tablet 20 mg PO HS 08/31/24 5 insulin glargine 100 unit/mL (3 5 unit subcut QDAY 10/25/24 mL) subcutaneous pen (Basaglar KwikPen U-100 Insulin) Previous Rx's ?Medication ?Instructions ?Recorded bumetanide 2 mg tablet 2 mg PO QDAY #30 tabs carvedilol 25 mg tablet 25 mg PO BID #60 tabs hydralazine 100 mg tablet 100 mg PO TID #30 tabs 04/08 lisinopril 40 mg tablet 40 mg PO QDAY #30 tabs 04/11 Allergies Allergy/AdvReac Type Severity Reaction Status Date / Time No Known Allergies Allergy Verified 10/27/24 10:15 Review of Systems Review of Systems Narrative Review of Systems: [General: Not in any acute distress Head normocephalic HEENT: Within acceptable limits Neck is supple nontender Chest equal chest rise nontender to palpation Respiratory: Clear to auscultation no wheezes crackles or rubs CV: Rate rhythm is regular no murmurs rubs or clicks Abdomen is distended secondary to body habitus soft nontender no masses positive bowel sounds all 4 quadrants Back: No CVA tenderness no spinous process tenderness from cervical spine thoracic and lumbar spine Skin: Left upper arm dialysis shunt has a bulky dressing on it with no active bleeding at this time. Otherwise skin is intact no petechiae rash induration ulceration or crepitus Extremities: Moving all extremity against resistance cap refill less than 2 seconds neurosensory intact Neuro: Awake alert oriented x3 Glascow coma 15 no focal deficits] Past Medical History Past Medical History NEUROLOGIC: Negative Neurological Disorders or Seizures CARDIAC: Positive Cardiac Disorders, Hypercholesterolemia, Edema, Cellulitis (right foot) and Hypertension; Negative Congestive Heart Failure RESPIRATORY: Positive Pulmonary Edema; Negative Chronic Obstructive Pulmonary Disease (COPD) or Asthma GASTROINTESTINAL: Negative Gastrointestinal Disorders or Hepatitis GENITOURINARY: Positive Genitourinary Disorders, Renal Disease and Dialysis (MWF) MUSCULOSKELETAL: Negative Musculoskeletal Disorders ENDOCRINE: Positive Endocrine Disorders and Diabetes Mellitus Type 2; Negative Diabetes Mellitus Type 1 HEMATOLOGIC: Positive Blood Disorders and Anemia; Negative Sickle Cell Disease PSYCHO/SOCIAL: Positive Depression OTHER HISTORY: Positive Hospitalization and Falls; Negative Autoimmune Disease, Blood Transfusions, Anesthesia Reactions, Chicken Pox, Measles, Mumps or Cancer Family History FAMILY HISTORY: Positive Family Cancer; Negative Family Psychiatric Problems, Family Respiratory Disorders, Family Cardiac Disorders, Family Gastrointestinal Problems, Family Surgery or Family Anesthesia Reaction Surgical History SURGICAL: Positive Amputation Social History SMOKING STATUS: Never smoker SUBSTANCE USE: does not use ED Exam Narrative Physical exam: [General: Obese not in cot no acute distress Head normocephalic HEENT: Within acceptable limits Neck is supple nontender Chest equal chest rise nontender to palpation Respiratory: Clear to auscultation no wheezes crackles or rubs CV: Rate rhythm is regular no murmurs rubs or clicks Abdomen is distended secondary to body habitus soft nontender no masses positive bowel sounds all 4 quadrants Back: No CVA tenderness no spinous process tenderness from cervical spine thoracic and lumbar spine Skin: Large bulky dressing around the left upper extremity. No active bleeding. Otherwise skin is intact no petechiae rash induration ulceration or crepitus Extremities: Moving all extremity against resistance cap refill less than 2 seconds neurosensory intact Neuro: Awake alert oriented x3 Glascow coma 15 no focal deficits] Course Course Course Narrative: At 1748 dressing was taken down, there is no active bleeding. New dressing was applied patient will be discharged. Note that hemoglobin is decreased to 9.3 this is down 3 g from the last blood draw. Quality Measures none Orders Category Date Time Status CBC Stat Lab 02/27/25 17:10 Completed Tranexamic Acid Inj Med 02/27/25 17:38 Discontinued 1,000 mg TOP NOW ONE Vital Signs Vital signs: Vital Signs Temperature 97.5 F 02/27/25 15:39 Pulse Rate 60 02/27/25 15:39 Respiratory Rate 18 02/27/25 15:39 Blood Pressure 156/74 H 02/27/25 15:39 Pulse Oximetry (%) 93 L 02/27/25 15:39 Oxygen Delivery Method Room Air 02/27/25 15:39 Discharge Plan Plan Patient Disposition: HOME (Self Care) Patient condition on transfer: Stable Prescriptions/Referrals Prescriptions/Med Rec: No Action hydralazine 100 mg tablet 100 mg PO TID Qty: 30 0RF lisinopril 40 mg tablet 40 mg PO QDAY Qty: 30 0RF bumetanide 2 mg tablet 2 mg PO QDAY Qty: 30 0RF carvedilol 25 mg tablet 25 mg PO BID Qty: 60 0RF Rx Instructions: must administer with a meal/food atorvastatin 20 mg tablet 20 mg PO HS Patient Comments: TOME SEVEN TABLETA POR V A ORAL EN LA NOCHE insulin glargine [Basaglar KwikPen U-100 Insulin] 100 unit/mL (3 mL) insulin pen 5 unit SUBCUT QDAY Referrals: No Primary/Family,Physician [Primary Care Provider] - In 1 week Problem List Clinical Impression: Anemia, Bleeding due to dialysis catheter placement Patient/Caregiver Discharge Instructions Education Materials: Anemia Print Language: Nauruan Stand Alone Forms: Audrey Award Info., Patient Portal Info Letter PA/SUPERVISOR DITCHING Supervising Physician PA/SUPERVISOR DITCHING Supervising Physician: Parviz Ricks ENP [facility] Clinical Information Provided by: patient and EMS [facility] Medication Administration(s) Medication Administration History Discontinued Medications Tranexamic Acid (Tranexamic Acid Inj 1,000 Mg/10 Ml Vial) 1,000 mg TOP NOW ONE Stop: 02/27/25 17:39
[2025-02-27 15:39] VITALS: BP 156/74; PULSE 60; RESP 18; TEMP 36.4; O2SAT 93
[2025-02-27 15:40] VITALS: PULSE 60
[2025-02-27 17:21] LABS: Basophils # (Auto) 0.0 Thou/mm3 (0.0-0.2); Basophils % (Auto) 1 % (0-2.5); Eosinophils # (Auto) 0.3 Thou/mm3 (0.0-0.5); Eosinophils % (Auto) 4 % (0-10); Hematocrit 29.2 % (41.0-53.0); Hemoglobin 9.3 g/dL (13.5-16.0); Immature Granulocytes Auto 0.02 Thou/mm3 (0.00-0.00); Lymphocytes # (Auto) 1.6 Thou/mm3 (1.0-4.8); Lymphocytes % (Auto) 22 % (10-50); Mean Corpuscular HGB Conc 31.8 g/dl (31.0-37.0); Mean Corpuscular Hemoglobin 29.1 pg (25.0-35.0); Mean Corpuscular Volume 91 fL (80-100); Monocytes # (Auto) 0.9 Thou/mm3 (0.0-0.8); Monocytes % (Auto) 12 % (0-12); Neutrophils # (Auto) 4.6 Thou/mm3 (1.8-7.7); Neutrophils % (Auto) 62 % (37-80); Nucleated Red Blood Cell # 0.00 Thou/mm3 (0.00-0.00); Nucleated Red Blood Cell % 0 /100 WBC (0); Platelet Count 257 Thou/mm3 (140-440); RDW Standard Deviation 48.9 fL (35.1-43.9); Red Blood Count 3.20 Miln/mm3 (4.50-5.90); White Blood Count 7.5 Thou/mm3 (3.8-10.6)
[2025-02-27 17:50] VITALS: BP 167/76; PULSE 61; RESP 17; TEMP 36.8; O2SAT 95
== END 2025-02-27 17:53 | disposition home or self-care (01) ==
PROVIDERS: Registered Nurse General Practice; Emergency Provider Emergency Medicine
DX: T82.838A Hemorrhage due to vascular prosthetic devices, implants and grafts, initial encounter (principal); D64.9 Anemia, unspecified; Y84.1 Kidney dialysis as the cause of abnormal reaction of the patient, or of later complication, without mention of misadventure at the time of the procedure
CPT/HCPCS: 36415; 85025; 99282